=== PATIENT | female | born 1950 | race Caucasian/White ===

== ENCOUNTER 2018-08-12 06:20 | Day surgery (SDC) | payer MEDICARE, BC, SELFPAY ==
--- NOTE | 2018-08-12 06:28 | W.PM.HP.N ---
Assessment and Plan (1) Unintentional weight loss: Current visit: Yes Status: Acute Isaura has lost about 25 lb and has to set an alarm to remind her to eat. (2) Nausea alone: Current visit: Yes Status: Acute Mostly in am P\\ EGD under sedation Risks, benefits and complications have been reviewed. Complications include but are not limited to bleeding, pain, perforation, sore throat, aspiration, and adverse reaction to the medications. Questions were entertained and answered to their satisfaction and they wished to proceed. No guarantees were given or implied. (3) Anorexia: Current visit: Yes Status: Acute (4) Constipation: Current visit: Yes Status: Acute Has to take metamucil and sometimes senna. (5) Family history of colon cancer in father: Current visit: Yes Status: Acute Plan\\ Colonoscopy under sedation Risks, benefits and complications have been reviewed. Complications include but are not limited to bleeding, pain, perforation, missed small lesion/polyp, sore throat, aspiration and adverse reaction to the medications. Questions were entertained and answered to their satisfaction and they wished to proceed. No guarantees were given or implied. History of Present Illness Chief Complaint: weight loss, constipation and nausea Narrative: Isaura was seen in the office on 06/10/18 for complaints of worsening constipation, anorexia with weight loss and intermittent nausea. CT scan was done which showed some possible thickening of the stomach wall. She has not had any melena or hematochezia. She does have a family history of Colon Cancer in her father. There have been no new complaints since I saw her last. Review of Systems Constitutional Reports anorexia Cardiovascular Reports system reviewed and no additional complaints, except as docu Respiratory Reports system reviewed and no additional complaints, except as docu Gastrointestinal Reports as per HPI Genitourinary Reports system reviewed and no additional complaints, except as docu PFSH Family History Father Personal history of malignant neoplasm Medical History Adenocarcinoma of lung Depression Hx of stroke without residual deficits Hypertension Social History Smoking/Tobacco Use Status: Former Tobacco Use Surgical History Appendectomy section Colonoscopy - IV Sedation (09/19/16) EXCISION OF GANGLION CYST (09/13/15) Excision of left distal clavicle (10/17/16) Fracture, Closed Treatment (~2004) Reduction mammoplasty (~1989) Meds Home Medications Medication Instructions Recorded Confirmed Type meclizine 25 mg PO QID PRN #75 tab-cap 11/24/15 08/07/18 History magnesium oxide 1,000 mg PO DAILY 08/14/16 08/07/18 History riboflavin (vitamin B2) [Vitamin 200 mg PO BID 08/14/16 08/07/18 History B-2] albuterol sulfate 2.5 mg INHALATION QID PRN #100 dose 10/11/16 08/07/18 History albuterol sulfate [ProAir HFA] 1 - 2 puff INHALATION Q4H PRN #3 07/22/17 08/07/18 History inhaler cholecalciferol (vitamin D3) 2,000 unit PO DAILY 01/23/18 08/07/18 History clonazepam [Klonopin] 0.5 mg PO QID PRN #180 tab-cap MDD 03/31/18 08/07/18 History 4 vitamin B complex [B 1 ea PO DAILY 03/31/18 08/07/18 History Complex-Vitamin B12] valacyclovir [Valtrex] 500 mg PO BID PRN #14 tab-cap 04/28/18 08/07/18 History tramadol 50 mg PO BID PRN #90 tab-cap 05/19/18 08/07/18 History ascorbic acid (vitamin C) [Vitamin 500 mg PO DAILY tab.chew NS 06/10/18 08/07/18 History C] calcium carbonate [Tums] 200 mg PO PRN PRN tab.chew NS 06/10/18 08/07/18 History Allergies Allergy/AdvReac Type Severity Reaction Status Date / Time gabapentin AdvReac Intermediate Made me Unverified 08/07/18 12:30 crazy Exam Const General: comfortable and no acute distress Resp Effort & Inspection: normal respiratory effort Auscultation: clear to auscultation bilaterally Cardio Rate: regular rate Rhythm: regular rhythm Heart Sounds: no gallops, no murmurs and no rubs GI Inspection: normal to inspection Palpation: soft and nontender Auscultation: normal bowel sounds
[2018-08-12 06:34] VITALS: BP 117/64; PULSE 73; RESP 18; TEMP 35.8; O2SAT 97
--- NOTE | 2018-08-12 06:40 | HPE_ITS ---
Assessment and Plan (1) Unintentional weight loss: Current visit: Yes Status: Acute Isaura has lost about 25 lb and has to set an alarm to remind her to eat. (2) Nausea alone: Current visit: Yes Status: Acute Mostly in am P\\ EGD under sedation Risks, benefits and complications have been reviewed. Complications include but are not limited to bleeding, pain, perforation, sore throat, aspiration, and adverse reaction to the medications. Questions were entertained and answered to their satisfaction and they wished to proceed. No guarantees were given or implied. (3) Anorexia: Current visit: Yes Status: Acute (4) Constipation: Current visit: Yes Status: Acute Has to take metamucil and sometimes senna. (5) Family history of colon cancer in father: Current visit: Yes Status: Acute Plan\\ Colonoscopy under sedation Risks, benefits and complications have been reviewed. Complications include but are not limited to bleeding, pain, perforation, missed small lesion/ polyp, sore throat, aspiration and adverse reaction to the medications. Questions were entertained and answered to their satisfaction and they wished to proceed. No guarantees were given or implied. History of Present Illness Chief Complaint: weight loss, constipation and nausea Narrative: Isaura was seen in the office on 06/10/18 for complaints of worsening constipation, anorexia with weight loss and intermittent nausea. CT scan was done which showed some possible thickening of the stomach wall. She has not had any melena or hematochezia. She does have a family history of Colon Cancer in her father. There have been no new complaints since I saw her last. Review of Systems Constitutional Reports anorexia Cardiovascular Reports system reviewed and no additional complaints, except as docu Respiratory Reports system reviewed and no additional complaints, except as docu Gastrointestinal Reports as per HPI Genitourinary Reports system reviewed and no additional complaints, except as docu PFSH Family History Father Personal history of malignant neoplasm Medical History Adenocarcinoma of lung Depression Hx of stroke without residual deficits Hypertension Social History Smoking/Tobacco Use Status: Former Tobacco Use Surgical History Appendectomy section Colonoscopy - IV Sedation (09/19/16) EXCISION OF GANGLION CYST (09/13/15) Excision of left distal clavicle (10/17/16) Fracture, Closed Treatment (~2004) Reduction mammoplasty (~1989) Meds Home Medications Medication Instructions Recorded Confirmed Type meclizine 25 mg PO QID PRN #75 tab-cap 11/24/15 08/07/18 History magnesium oxide 1,000 mg PO DAILY 08/14/16 08/07/18 History riboflavin (vitamin B2) [Vitamin 200 mg PO BID 08/14/16 08/07/18 History B-2] albuterol sulfate 2.5 mg INHALATION QID PRN #100 dose 10/11/16 08/07/18 History albuterol sulfate [ProAir HFA] 1 - 2 puff INHALATION Q4H PRN #3 07/22/17 History inhaler cholecalciferol (vitamin D3) 2,000 unit PO DAILY 01/23/18 08/07/18 History clonazepam [Klonopin] 0.5 mg PO QID PRN #180 tab-cap MDD 03/31/18 08/07/18 History 4 vitamin B complex [B 1 ea PO DAILY 03/31/18 08/07/18 History Complex-Vitamin B12] valacyclovir [Valtrex] 500 mg PO BID PRN #14 tab-cap 04/28/18 08/07/18 History tramadol 50 mg PO BID PRN #90 tab-cap 05/19/18 08/07/18 History ascorbic acid (vitamin C) [Vitamin 500 mg PO DAILY tab.chew NS 06/10/18 History C] calcium carbonate [Tums] 200 mg PO PRN PRN tab.chew NS 06/10/18 08/07/18 History Allergies Allergy/AdvReac Type Severity Reaction Status Date / Time gabapentin AdvReac Intermediate Made me Unverified 08/07/18 12:30 crazy Exam Const General: comfortable and no acute distress Resp Effort & Inspection: normal respiratory effort Auscultation: clear to auscultation bilaterally Cardio Rate: regular rate Rhythm: regular rhythm Heart Sounds: no gallops, no murmurs and no rubs GI Inspection: normal to inspection Palpation: soft and nontender Auscultation: normal bowel sounds
--- NOTE | 2018-08-12 06:52 | W.COLOREPORT ---
Date of service: 08/12/18 Colonoscopy Report Date of procedure: 08/12/18 Pre-op diagnosis general: Anorexia, constipation, nausea Procedure: 1. Colonoscopy 2. EGD Surgeon: Vanessa Ye Anesthesia proc note operative: MAC (Jagdish Collado CRNA) Estimated blood loss (mL): 5 Pathology: other (1. Duodenal bx, Gastric bx, GE junction bx, esophageal bx, transverse polyps x 5, rectal polyps x5) Complications: None Disposition: same day Indications: Mrs. Arellano is a pleasant 68 year old who was seen in the office for new onset constipation, nausea and anorexia. Risks, benefits and complications have been reviewed and she wished to proceed. No guarantees were given or implied. Prep: Miralax/Dulcolax Procedure Start Time: 07:34 Procedure End Time: 08:12 Retraction Time: 17 minutes Findings: 1. 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 Gastritis 3. Esophagitis ? candidiasis 4. Transverse colon polyps x 5 5. Rectal polyps x 5 Procedure Description: After informed consent was obtained the patient was taken to the procedure room and placed in a supine position. Monitors were applied and a time out was done. The patients name, date of , procedure, allergies to medications and metal in their body was reviewed. A bite block was placed and the patient was then sedated. Once sedated and comfortable the Gastroscope was introduced and advanced through the oropharynx into the esophagus. The proximal esophagus was normal. The mid and distal esophagus revealed inflammation. At the GE junction there was erosive esophagitis. The scope was advanced into the stomach and through the pylorus into the duodenum. In the second portion of the duodenum there was a small mass, most likely a polyp. It was biopsied. The scope was the retracted back into the stomach and biopsies of the antrum were done to rule out H. Pylori infection. There was moderate inflammation noted. The scope was retroflexed. No hiatal hernia was identified. The scope was straightened and retracted into the esophagus. Biopsies of the GE junction were done as well as the esophagus. The scope was then removed and the patients bed was turned around and she was placed in a left decubitous position. A rectal exam was done. External exam was normal. Internal exam revealed a normal sphincter tone and no palpable masses. The scope was then introduced and retroflexed. No internal hemorrhoids were identified. The scope was straightened and then advanced to the cecum without difficulty. The TI and appendiceal orifice were identified. The prep was adequate. The scope was then slowly retracted over 17 minutes back into the rectum. 5 polyps were removed in the transverse colon and 5 in the rectum. The scope was removed and the patient was woken up and taken back to Same day surgery in stable condition. The patient tolerated the procedure well and there were no immediate complications. Follow up: The patient should follow up in 2-3 weeks for her results.
[2018-08-12] MEDS: Lactated Ringers 1,000 ML 80 ML IV (06:57)
--- NOTE | 2018-08-12 07:05 | PDOC.DSDIS_ITS ---
Discharge Plan Disposition Patient Disposition: HOME Condition: Good Discharge Details Reason For Visit: ABNORMAL CT / CONSTIPATION Attending Provider: Vanessa Ye Primary Care Provider: Aurelia Bobby Home Meds and New Rx's Prescriptions: New omeprazole 40 mg capsule,delayed release(DR/EC) 40 mg PO BID Qty: 60 RF: 0 No Action meclizine 25 MG tablet,chewable 25 mg PO QID PRNQty: 75 RF: 1 riboflavin (vitamin B2) [Vitamin B-2] 100 MG tablet 200 mg PO BID RF: 0 magnesium oxide 500 MG capsule 1,000 mg PO DAILY RF: 0 albuterol sulfate 2.5 MG/3 ML solution for nebulization 2.5 mg Inhalation QID PRNQty: 100 RF: 12 albuterol sulfate [ProAir HFA] 8.5 GM HFA aerosol inhaler 1 - 2 puff Inhalation Q4H PRN Qty: 3 RF: 12 hydroxyzine HCl 10 MG tablet 10 mg PO Q4H PRN Qty: 90 RF: 0 cholecalciferol (vitamin D3) 2,000 UNIT tablet 2,000 unit PO DAILY RF: 0 vitamin B complex [B Complex-Vitamin B12] 1 EACH tablet 1 ea PO DAILY RF: 0 clonazepam [Klonopin] 0.5 MG tablet 0.5 mg PO QID MDD 4 PRNQty: 180 RF: 3 valacyclovir [Valtrex] 500 MG tablet 500 mg PO BID PRNQty: 14 RF: 11 levothyroxine 50 MCG tablet 50 mcg PO DAILY Qty: 90 RF: 11 topiramate 100 MG tablet 0.5 tab PO BID Qty: 180 RF: 4 tramadol 50 MG tablet 50 mg PO BID PRNQty: 90 RF: 0 calcium carbonate [Tums] 200 MG tablet,chewable 200 mg PO PRN PRNRF: 0 ascorbic acid (vitamin C) [[place] C] 500 MG tablet,chewable 500 mg PO DAILY RF: 0 sertraline 50 MG tablet 50 mg PO DAILY Qty: 90 RF: 11 dextroamphetamine-amphetamine [Adderall] 10 MG tablet 10 mg PO BID Qty: 60 RF: 0 Discharge Instructions Instructions: Colonoscopy (DC), Upper Endoscopy (DC), Diet for Stomach Ulcers and Gastritis (GEN), Esophagitis (DC), Gastritis (DC), Colorectal Polyps (DC) Additional Instructions: Findings: Severe gastritis and esophagitis 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 Because there will be medication in your system for the next 24 hours, you may feel a little sleepy. Your coordination will be affected. Therefore: a. Do not drive or operate dangerous equipment for 24 hours. b. Do not drink alcohol beverages for 24 hours (not even beer). c. Plan to go home and rest for the day. 2. Generally there are no restrictions on your activity after a day or so has gone by, but you may feel a bit fatigued for a few days. 3 After you arrive home you may have a light meal and return to a normal diet as you can tolerate it without feeling sick to your stomach. 4. After surgery, you may feel pain or discomfort. This should be only transient , but if it persists please contact your doctor. 5. If there are any questions regarding the findings of your procedure, please feel free to contact your doctor. 6. If you are unable to contact your doctor with a problem, contact the hospital at [phone]. 7. Continue all your regular medications unless directed otherwise. I understand the above instructions and have no questions. Signature of Patient or Responsible Adult Escort Date/Time Name of Responsible Adult Escort Signature of Nurse Date/Time Stand Alone Forms: Colonoscopy Post Instructions, DSU Post EGD Instructions, Kanwal Nguyen (DSU) Activity:: Activity as Tolerated Diet:: low acid Discharge Orders Discharge Orders: Discharge Order (Routine); Ordered 08/12/18 Ordered By: Vanessa Ye DS: Diagnosis Discharge Diagnosis (1) Unintentional weight loss: Status: Acute (2) Nausea alone: Status: Acute (3) Anorexia: Status: Acute (4) Constipation: Status: Acute (5) Family history of colon cancer in father: Status: Acute
--- NOTE | 2018-08-12 07:35 | STOM_PTH ---
PATIENT: Isaura Arellano LOC: [facility] U#:[id number] AGE/SX: 68/F ROOM: RE08/12/[address]: Vanessa Ye MD : 1950 BED: DIS: 08/12/2018 SPEC #: [id number] RECD: 08/12/18 12:07 STATUS: [facility] #: [id number] ELZA: 08/12/18 07:[address]: Vanessa Ye DEPT: Surgical Specimen RECD BY: Haydee Viramontes ENTERED: 08/12/18 12:17 SP TYPE: STOMACH OTHR DR: Aurelia Bobby MD, DC Tissues: 1 - BIOPSY BOWEL 2 - STOMACH BIOPSY 3 - ESOPHAGUS BIOPSY 4 - ESOPHAGUS BIOPSY 5 - BIOPSY BOWEL 6 - BIOPSY BOWEL Procedures: GROSS AND MICRO LEVEL 4 Comments: [id number]
[2018-08-12 08:40] VITALS: BP 142/84; PULSE 63; RESP 16; O2SAT 98
== END 2018-08-12 09:30 | disposition home or self-care (01) ==
PROVIDERS: PCP Family Medicine; Visit Provider Surgery
PROC: (CPT 43239; principal; 2018-08-12 07:30)
DX: R63.0 Anorexia (principal); R11.0 Nausea; K59.00 Constipation, unspecified; K63.5 Polyp of colon; K62.1 Rectal polyp; K31.89 Other diseases of stomach and duodenum; K21.0 Gastro-esophageal reflux disease with esophagitis; K29.70 Gastritis, unspecified, without bleeding
CPT/HCPCS: 43239; 45380; 88305; NC; J2250; J3010

== ENCOUNTER → 2018-08-12 07:30 | Outpatient (BNVA) | payer MEDICARE, BC, SELFPAY | PROVIDERS: PCP Family Medicine; Visit Provider Surgery | DX: R69 Illness, unspecified (principal) ==

== ENCOUNTER → 2018-08-18 08:26 | Outpatient (BNVA) | payer MEDICARE, BC, SELFPAY | PROVIDERS: Visit Provider Nurse Practitioner Adult Health | DX: G43.009 Migraine without aura, not intractable, without status migrainosus (principal) | CPT/HCPCS: 99213 ==

== ENCOUNTER → 2018-09-02 09:25 | Outpatient (BNVA) | payer MEDICARE, BC, SELFPAY | PROVIDERS: PCP Family Medicine; Referring Provider Family Medicine; Visit Provider Surgery | DX: Z48.815 Encounter for surgical aftercare following surgery on the digestive system (principal); K29.70 Gastritis, unspecified, without bleeding; K21.0 Gastro-esophageal reflux disease with esophagitis | CPT/HCPCS: 99212 ==

== ENCOUNTER 2018-10-31 01:39 | Outpatient (CLI) | payer MEDICARE, BC, SELFPAY ==
[2018-10-31] MEDS: Gadoterate meglumine 20 ML VIAL 12 ML IVP (10:25)
--- NOTE | 2018-10-31 10:55 | DI.MRI_ITS ---
SYMPTOM/DIAGNOSIS: IMBALANCE, PULSATILE TINNITUS, R26.89, H83.49, VERTIGO, HEADACHES BRAIN/IAC MRI: Pre and post contrast MRI was performed according to protocol. Comparison is made with 01/20/16. The ventricles and sulci are consistent with the patient's age. There areas of T 2 hyperintensity in the white matter on the FLAIR and T 2 weighted images most suggestive of small vessel ischemic disease. The diffusion weighted images show no evidence of an acute infarct. No intracranial hemorrhage is seen. The ventricles are intact. The basilar cisterns are patent. No masses are seen in the region of the internal auditory canals or the cerebellar pontine angles. A normal flow void is present in the [place]. Following contrast administration, no abnormal enhancement is seen. Specifically, no enhancing masses are seen in the region of the IAC's or CPA's. There is mild mucosal thickening in the visualized paranasal sinuses. No fluid levels are seen. The mastoid air cells are well pneumatized. IMPRESSION: 1. No evidence of an intracranial mass or enhancing lesion in the brain, IAC's or CP angles. 2. Age appropriate cerebral atrophy and small vessel ischemic disease. 3. No enhancing mass to suggest intracranial metastases.
== END 2018-10-31 01:59 ==
PROVIDERS: PCP Family Medicine; Visit Provider Otolaryngology
DX: R26.89 Other abnormalities of gait and mobility (principal); H93.19 Tinnitus, unspecified ear; R51 Headache; R42 Dizziness and giddiness; Z13.89 Encounter for screening for other disorder
CPT/HCPCS: 36415; 70553; 82565

== ENCOUNTER 2018-11-17 14:00 | Outpatient (CLI) | payer MEDICARE, BC, SELFPAY ==
--- NOTE | 2018-11-17 11:20 | DI.RAD_ITS ---
SYMPTOMS/DIAGNOSIS: RIGHT HIP PAIN, M25.551, NO KNOWN INJURY, DECREASED RANGE OF MOTION RIGHT HIP AND PELVIS: Three views were obtained. There is mild to moderate narrowing of the cartilaginous joint space of the hip. Mild hypertrophic spurring of the acetabulum and to a lesser degree the femoral head is noted, as well as spurring of the greater trochanter of the femur. No additional bony abnormality seen. CONCLUSION: Moderate DJD, right hip.
== END 2018-11-17 14:20 ==
PROVIDERS: PCP Family Medicine; Visit Provider Family Medicine
DX: M25.551 Pain in right hip (principal); M16.11 Unilateral primary osteoarthritis, right hip; M25.651 Stiffness of right hip, not elsewhere classified
CPT/HCPCS: 73502

== ENCOUNTER 2019-04-17 10:37 | Outpatient (CLI) | payer MEDICARE, BC, SELFPAY ==
[2019-04-17 11:57] LABS: TSH (W/Ref FT4) 1.21 uIU/mL (0.358-3.74)
== END 2019-04-17 10:57 ==
PROVIDERS: PCP Family Medicine; Visit Provider Family Medicine
DX: E03.9 Hypothyroidism, unspecified (principal)
CPT/HCPCS: 36415; 84443

== ENCOUNTER → 2019-05-06 07:51 | Outpatient (BNVA) | payer MEDICARE, BC, SELFPAY | PROVIDERS: PCP Family Medicine; Referring Provider Family Medicine; Visit Provider Student in an Organized Health Care Education/Training Program | DX: M16.11 Unilateral primary osteoarthritis, right hip (principal); G56.01 Carpal tunnel syndrome, right upper limb; I10 Essential (primary) hypertension | CPT/HCPCS: 99204; 99214 ==

== ENCOUNTER 2019-05-19 12:57 | Day surgery (SDC) | payer MEDICARE, BC, SELFPAY ==
--- NOTE | 2019-05-15 13:23 | NUR.NOTE ---
05/15/19 1320 - After finishing PPOV, spoke with RUMA Thomas in regards to pt report of allergy to propofol. Pt reports severe behavorial changes after having propofol, she continues to state it's severe enough I would forgo surgery to not have it.Nursing Note:
[2019-05-19 13:30] VITALS: BP 119/85; PULSE 65; RESP 16; TEMP 36.9; O2SAT 98
--- NOTE | 2019-05-19 13:41 | W.PM.DSUDISC ---
Documented by User: Giselle Suarez 05/19/19 13:48 Discharge Plan Disposition Patient Disposition: HOME Condition: Good Discharge Details Reason For Visit: right carpal tunnel syndrome Attending Provider: Shmuel Cid Primary Care Provider: Aurelia Bobby Home Meds and New Rx's Prescriptions: New hydrocodone-acetaminophen 5-325 mg tablet 1 tab PO Q6H PRN (Reason: severe pain) Qty: 4 RF: 0 acetaminophen 500 mg tablet 500 mg PO Q8H PRN (Reason: pain) Qty: 60 RF: 0 ibuprofen 600 mg tablet 600 mg PO TID PRN (Reason: pain) Qty: 60 RF: 0 Continued cyanocobalamin (vitamin B-12) [Vitamin B-12] 500 mcg tablet 500 mcg PO DAILY RF: 0 albuterol sulfate [ProAir HFA] 90 mcg/actuation HFA aerosol inhaler 1 - 2 puff Inhalation Q4H PRN Qty: 3 RF: 4 hydroxyzine HCl 25 mg tablet 25 mg PO QHS PRN (Reason: itching) Qty: 270 RF: 3 levothyroxine 50 mcg tablet 50 mcg PO DAILY Qty: 90 RF: 11 valacyclovir 500 mg tablet 500 mg PO BID PRN (Reason: herpes) Qty: 42 RF: 11 lisdexamfetamine 60 mg capsule 60 mg PO QAM MDD 1 Qty: 90 RF: 0 tramadol 50 mg tablet 50 mg PO QHS PRN (Reason: pain) Qty: 90 RF: 0 riboflavin (vitamin B2) [Vitamin B-2] 100 MG tablet 200 mg PO BID RF: 0 magnesium oxide 500 MG capsule 1,000 mg PO DAILY RF: 0 albuterol sulfate 2.5 MG/3 ML solution for nebulization 2.5 mg Inhalation QID PRNQty: 100 RF: 12 cholecalciferol (vitamin D3) 2,000 UNIT tablet 2,000 unit PO DAILY RF: 0 vitamin B complex [B Complex-Vitamin B12] 1 EACH tablet 1 ea PO DAILY RF: 0 ascorbic acid (vitamin C) [[place] C] 500 MG tablet,chewable 500 mg PO DAILY RF: 0 lamotrigine 100 mg tablet 200 mg PO DAILY Qty: 180 RF: 4 clonazepam 1 mg tablet 1 mg PO QHS PRN (Reason: insomnia) Qty: 90 RF: 3 clonazepam 0.5 mg tablet 0.5 mg PO .COMPLEX MDD 3 PRN (Reason: anxiety) Qty: 180 RF: 2 Discharge Instructions Stand Alone Forms: Jose Roberto Soria Tunnel Release Referrals: Shmuel Cid MD [ [facility] STAFF PHYSICIAN] - Activity:: Activity as Tolerated Remove Dressings/Wound Care:: 48 hours Shower/Bathe:: 48 hours Diet:: As Tolerated Discharge Orders Discharge Orders: Discharge Order (Routine); Ordered 05/19/19 Ordered By: Giselle Suarez DS: Diagnosis Discharge Diagnosis (1) Right carpal tunnel syndrome: Status: Chronic Documented by User: Shmuel Cid MD 05/19/19 14:45 Discharge Plan Disposition Patient Disposition: HOME Condition: Good Discharge Details Reason For Visit: right carpal tunnel syndrome Attending Provider: Shmuel Cid Primary Care Provider: Aurelia Bobby Home Meds and New Rx's Prescriptions: New hydrocodone-acetaminophen 5-325 mg tablet 1 tab PO Q6H PRN (Reason: severe pain) Qty: 4 RF: 0 acetaminophen 500 mg tablet 500 mg PO Q8H PRN (Reason: pain) Qty: 60 RF: 0 ibuprofen 600 mg tablet 600 mg PO TID PRN (Reason: pain) Qty: 60 RF: 0 Continued cyanocobalamin (vitamin B-12) [Vitamin B-12] 500 mcg tablet 500 mcg PO DAILY RF: 0 albuterol sulfate [ProAir HFA] 90 mcg/actuation HFA aerosol inhaler 1 - 2 puff Inhalation Q4H PRN Qty: 3 RF: 4 hydroxyzine HCl 25 mg tablet 25 mg PO QHS PRN (Reason: itching) Qty: 270 RF: 3 levothyroxine 50 mcg tablet 50 mcg PO DAILY Qty: 90 RF: 11 valacyclovir 500 mg tablet 500 mg PO BID PRN (Reason: herpes) Qty: 42 RF: 11 lisdexamfetamine 60 mg capsule 60 mg PO QAM MDD 1 Qty: 90 RF: 0 tramadol 50 mg tablet 50 mg PO QHS PRN (Reason: pain) Qty: 90 RF: 0 riboflavin (vitamin B2) [Vitamin B-2] 100 MG tablet 200 mg PO BID RF: 0 magnesium oxide 500 MG capsule 1,000 mg PO DAILY RF: 0 albuterol sulfate 2.5 MG/3 ML solution for nebulization 2.5 mg Inhalation QID PRNQty: 100 RF: 12 cholecalciferol (vitamin D3) 2,000 UNIT tablet 2,000 unit PO DAILY RF: 0 vitamin B complex [B Complex-Vitamin B12] 1 EACH tablet 1 ea PO DAILY RF: 0 ascorbic acid (vitamin C) [[place] C] 500 MG tablet,chewable 500 mg PO DAILY RF: 0 lamotrigine 100 mg tablet 200 mg PO DAILY Qty: 180 RF: 4 clonazepam 1 mg tablet 1 mg PO QHS PRN (Reason: insomnia) Qty: 90 RF: 3 clonazepam 0.5 mg tablet 0.5 mg PO .COMPLEX MDD 3 PRN (Reason: anxiety) Qty: 180 RF: 2 Discharge Instructions Stand Alone Forms: Jose Roberto Soria Tunnel Release Referrals: Shmuel Cid MD [ [facility] STAFF PHYSICIAN] - Activity:: Activity as Tolerated Remove Dressings/Wound Care:: 48 hours Shower/Bathe:: 48 hours Diet:: As Tolerated Discharge Orders Discharge Orders: Discharge Order (Routine); Ordered 05/19/19 Ordered By: Giselle Suarez
[2019-05-19] MEDS: Lactated Ringers 1,000 ML 80 ML IV (13:50)
--- NOTE | 2019-05-19 14:12 | DI.RAD_ITS ---
SYMPTOMS/DIAGNOSIS: PAINFUL RIGHT HIP RIGHT HIP IN THE OR: Fluoroscopy Time: 9.1 sec Fluoroscopy was provided for Dr. Cid for guidance with performing a right hip injection. A single hard copy image shows a needle projecting over the lateral aspect of the femoral head and injection of contrast into the joint space. Please see procedure note for details.
[2019-05-19] MEDS: ceFAZolin 1 GM/50 ML BAG IVPB (14:46)
[2019-05-19] MEDS: Bupivacaine 0.5% Pres-Free 30 ML VIAL (14:56)
[2019-05-19] MEDS: methylPREDNISolone ACETATE 80 MG/ML VIAL (14:57)
[2019-05-19] MEDS: Lidocaine 1% Multi-Dose 50 ML VIAL (15:08)
[2019-05-19] MEDS: Sodium Bicarbonate 50 MEQ/50 ML VIAL (15:08)
[2019-05-19 15:47] VITALS: BP 134/77; PULSE 54; RESP 16; TEMP 36.3; O2SAT 98
--- NOTE | 2019-05-19 18:23 | ROE_ITS ---
Date of service: 05/19/19 Time of Service: 14:19 Operative Note DATE OF PROCEDURE: 05/19/19 PRE-OP DIAGNOSIS: Right Carpal Tunnel Syndrome, right hip arthritis POST-OP DIAGNOSIS: same PROCEDURE: Right Endoscopic Carpal Tunnel Release and fluoroscopically guided right intra-articular hip injection SURGEON: Shmuel Cid ANESTHESIA: JEN ESTIMATED BLOOD LOSS: 0 PATHOLOGY: none sent TOURNIQUET TIME: 5 COMPLICATIONS: None Patient was transported to: same day Patient's condition: stable Indications: I have seen Isaura in clinic for symptoms of carpal tunnel syndrome. The numbness, tingling, and pain limited function. Clinical exam findings confirmed the diagnosis of carpal tunnel syndrome. Nonoperative measures such as bracing, time, activity modifications had been tried but disability and pain persisted. I discussed carpal tunnel release with the patient. I reviewed the risks of the procedure to include, but not limited to, bleeding, infection, pain, stiffness, incomplete release, damage to nerves or vessels, persistent numbness, recurrence. Despite these risks, the patient elected to proceed. She also has been having increasing right hip pain. She has tried some basic conservative options. As a way to both diagnose and treat, offered an intra-articular hip injection. I reviewed the risk of this procedure but she elected to proceed. Findings: There was tightened carpal tunnel. This was dilated and released successfully with the endoscopic with increased space within the tunnel. The antebrachial fascia was released proximally freeing the median nerve at the wrist. Procedure Description: Isaura was greeted in the preoperative holding area where the correct side was identified and marked. The consent was reviewed with the patient and signed. The history and physical was updated. All questions were answered. Isaura was taken back to the operating room. The patient was placed into the supine position on the operating room table with the right arm on an arm board. A nonsterile tourniquet was placed high onto the arm. All bony prominences were well padded. Prophylactic antibiotics in the form of cefazolin were administered. The right arm was then prepped with Chloraprep and draped in a standard fashion with stockinette and extremity drape. A timeout to confirm correct identity, side and site, procedure, allergies, anesthesia, and medical concerns was performed. The surgical site was marked in the volar wrist creases in line with the radial border of the fourth ray. This area was anesthetized with approximately 6cc of 1% Lidocaine. The limb was then exsanguinated with an Esmarch. The skin was incised with a 15 blade, approximately 1cm. The skin only was cut and the deeper tissue was dissected bluntly with a tenotomy scissor, avoiding passing nerve and venous structures. The fascia was penetrated and opened bluntly. A two-prong skin hook was placed under this proximal fascial edge. A series of hamate finders were used to identify and dilate the carpal tunnel. Synovial elevator was used to free synovial attachments to the underside of the transverse carpal ligament. My thumb was kept in the palm to yumiko the distal extent of the carpal tunnel and correctly position the hand. The Microaire endoscope was inserted without difficulty and without resistance. Excellent visualization showed horizontally running fibers of the transverse carpal ligament (TCL). The distal extent of the TCL was visualized and the end of the scope palpated with the thumb. The blade was elevated and withdrawn from distal to proximal. The TCL was split into two flaps. The endoscope was reinserted to confirm complete release and any remnant ligament was incised. The scope was withdrawn and the proximal aspect of the carpal tunnel was grossly inspected and appeared release with the median nerve visible. The antebrachial fascia at the level of the wrist was then freed from the overlying skin and then the underlying median nerve with blunt dissection. This was transected longitudinally for about 3cm proximal to the wrist incision. The wound was then irrigated with easy flow of irrigant distally and proximally. The incision was closed with a single 4-0 Nylon suture. The wound was dressed with Xeroform, Gauze, Kerlix and Ger. The tourniquet was deflated with the initial dressing and held with some pressure. Blood flow returned easily to all digits with capillary refill less than 2 seconds. The drapes were then taken down and we proceeded with the right hip injection. The right hip was prepped with ChloraPrep. The fluoroscopy unit was utilized to target our entry location over the anterior lateral right hip. Once this was selected the superficial tissues in the tract of the planned injection was anesthetized with buffered 1% lidocaine. A 22-gauge spinal needle was then in serted through the soft tissues onto the anterior femoral head neck junction. The bone was palpated with the needle tip. A small amount of Omnipaque solution was injected into the hip which showed intra-articular placement. I then injected 6 cc of 0.5 bupivacaine and 80 mg of Depo-Medrol. She tolerated the procedure well. A Band-Aid was applied. The patient tolerated all surgical aspects well and was returned to the Same Day Surgery area in a stable condition suffering no known complication.
== END 2019-05-19 16:08 | disposition home or self-care (01) ==
PROVIDERS: PCP Family Medicine; Visit Provider Student in an Organized Health Care Education/Training Program
PROC: 01N54ZZ Release Median Nerve, Percutaneous Endoscopic Approach (ICD-10-PCS; CPT 29848; principal; 2019-05-19 15:30)
PROC: (CPT 29848; 2019-05-19 15:30)
DX: G56.01 Carpal tunnel syndrome, right upper limb (principal); M25.551 Pain in right hip; M16.11 Unilateral primary osteoarthritis, right hip
CPT/HCPCS: 29848; 20610; 77002; 73501; J0690; J1040; J2250; L3650

== ENCOUNTER → 2019-05-27 14:33 | Outpatient (BNVA) | payer MEDICARE, BC, SELFPAY | PROVIDERS: PCP Family Medicine; Referring Provider Family Medicine; Visit Provider Student in an Organized Health Care Education/Training Program | DX: G56.01 Carpal tunnel syndrome, right upper limb (principal); Z47.89 Encounter for other orthopedic aftercare; Z98.890 Other specified postprocedural states; M16.11 Unilateral primary osteoarthritis, right hip ==

== ENCOUNTER 2019-07-06 10:01 | Outpatient (CLI) | payer MEDICARE, BC, SELFPAY ==
--- NOTE | 2019-07-06 09:13 | DI.RAD_ITS ---
SYMPTOM/DIAGNOSIS; INJURY LITTLE FINGER RIGHT LITTLE FINGER: 07/06 Three views were obtained. There are degenerative changes of the IP joints of the little finger, particularly the DIP joint. Multiple small flecks of calcific or ossific material are seen adjacent to the DIP joint on the volar, dorsal and lateral aspects of the joint. These appear to mostly be chronic but the possibility of a chip or avulsion fracture is not entirely excluded. No other bony abnormality seen.
== END 2019-07-06 10:21 ==
PROVIDERS: PCP Family Medicine; Referring Provider Family Medicine; Visit Provider Student in an Organized Health Care Education/Training Program
DX: S63.636A Sprain of interphalangeal joint of right little finger, initial encounter (principal); W23.0XXA Caught, crushed, jammed, or pinched between moving objects, initial encounter; Z47.89 Encounter for other orthopedic aftercare; I10 Essential (primary) hypertension; M79.89 Other specified soft tissue disorders
CPT/HCPCS: 99214; 73140

== ENCOUNTER → 2019-08-03 08:28 | Outpatient (BNVA) | payer MEDICARE, BC, SELFPAY | PROVIDERS: PCP Family Medicine; Visit Provider Nurse Practitioner Adult Health | DX: F32.9 Major depressive disorder, single episode, unspecified (principal); G43.009 Migraine without aura, not intractable, without status migrainosus; R41.3 Other amnesia | CPT/HCPCS: 99213 ==

== ENCOUNTER 2019-08-10 08:54 | Outpatient (CLI) | payer MEDICARE, BC, SELFPAY | END 2019-08-10 09:14 | PROVIDERS: PCP Family Medicine; Visit Provider Family Medicine | DX: I49.9 Cardiac arrhythmia, unspecified (principal); I49.3 Ventricular premature depolarization | CPT/HCPCS: 93225 ==

== ENCOUNTER → 2019-08-11 10:05 | Outpatient (BNVA) | payer MEDICARE, BC, SELFPAY | PROVIDERS: PCP Family Medicine; Visit Provider Nurse Practitioner Adult Health | DX: R41.3 Other amnesia (principal); I10 Essential (primary) hypertension; F32.9 Major depressive disorder, single episode, unspecified | CPT/HCPCS: 99213 ==

== ENCOUNTER 2019-08-13 09:25 | Outpatient (CLI) | payer MEDICARE, BC, SELFPAY ==
--- NOTE | 2019-08-14 12:58 | HOLTER_ITS ---
DATE OF DICTATION: August 14, 2019 INDICATION: Arrhythmias. 48-HOUR HOLTER MONITOR Baseline sinus rhythm. Average heart rate 92 bpm, minimum heart rate 58 bpm, maximum heart rate 133 bpm. Rare isolated ventricular ectopy. No non-sustained VT. Rare atrial ectopy. No SVT or atrial fibrillation. No significant pauses or bradyarrhythmias. No diary entries.
== END 2019-08-13 09:45 ==
PROVIDERS: PCP Family Medicine; Visit Provider Family Medicine
DX: I49.9 Cardiac arrhythmia, unspecified (principal); I49.3 Ventricular premature depolarization
CPT/HCPCS: 93226

== ENCOUNTER 2019-08-14 10:05 | Outpatient (CLI) | payer MEDICARE, BC, SELFPAY | END 2019-08-14 10:25 | PROVIDERS: PCP Family Medicine; Referring Provider Family Medicine; Visit Provider Internal Medicine Cardiovascular Disease | DX: I49.9 Cardiac arrhythmia, unspecified (principal); I49.3 Ventricular premature depolarization | CPT/HCPCS: 93227 ==

== ENCOUNTER 2019-09-10 10:51 | Outpatient (CLI) | payer MEDICARE, BC, SELFPAY ==
[2019-09-10 12:09] LABS: TSH (W/Ref FT4) 1.65 uIU/mL (0.36-3.74)
== END 2019-09-10 11:11 ==
PROVIDERS: PCP Family Medicine; Visit Provider Family Medicine
DX: I10 Essential (primary) hypertension (principal); R63.4 Abnormal weight loss; R55 Syncope and collapse
CPT/HCPCS: 36415; 80053; 80061; 85027; 82607; 83036; 83735; 84443

== ENCOUNTER 2019-09-22 01:56 | Outpatient (CLI) | payer MEDICARE, BC, SELFPAY ==
--- NOTE | 2019-09-22 14:50 | DI.CT_ITS ---
EXAM: CT CHEST WO CLINICAL HISTORY: NON-SMALL CELL CARCINOMA LT LUNG STAGE 1 C34.92 TECHNIQUE: Noncontrast COMPARISON: CHEST WITH CONTRAST from 06/09/2018 FINDINGS: There is atherosclerosis of the thoracic aorta. The heart size is within normal limits. Coronary ar clementina calcifications are present. No definite mediastinal adenopathy is seen on this noncontrast exam ination. There are findings of prior granulomatous disease with calcified mediastinal lymph nodes, c alcified pulmonary nodules and calcifications in the spleen. No noncalcified pulmonary nodules are p resent. No focal consolidating infiltrates are present in the lungs. The tracheobronchial tree is u nremarkable. There are stable adrenal nodules. Degenerative changes are seen in the spine. There a re old healed left rib fractures. No aggressive osseous lesions are appreciated. IMPRESSION: 1. No evidence of thoracic metastatic disease. 2. Findings of prior granulomatous disease.
== END 2019-09-22 02:16 ==
PROVIDERS: PCP Family Medicine; Visit Provider Internal Medicine Hematology & Oncology
DX: C34.92 Malignant neoplasm of unspecified part of left bronchus or lung (principal); I70.0 Atherosclerosis of aorta; J98.4 Other disorders of lung
CPT/HCPCS: 71250

== ENCOUNTER 2019-10-29 18:42 | Outpatient (REF) | payer MEDICARE, BC, SELFPAY | END 2019-10-29 19:02 | LOC: LBN 18:42 | PROVIDERS: PCP Family Medicine; Visit Provider Family Medicine | DX: R50.9 Fever, unspecified (principal) | CPT/HCPCS: 87449 ==

== ENCOUNTER → 2020-02-01 10:56 | Outpatient (BNVA) | payer MEDICARE, BC, SELFPAY | PROVIDERS: PCP Family Medicine; Referring Provider Family Medicine; Visit Provider Student in an Organized Health Care Education/Training Program | DX: G56.02 Carpal tunnel syndrome, left upper limb (principal); M25.551 Pain in right hip | CPT/HCPCS: 99214 ==

== ENCOUNTER 2020-02-03 03:29 | Outpatient (CLI) | payer MEDICARE, BC, SELFPAY ==
[2020-02-03 11:04] LABS: TSH (W/Ref FT4) 0.59 uIU/mL (0.36-3.74)
== END 2020-02-03 03:49 ==
PROVIDERS: PCP Family Medicine; Visit Provider Family Medicine
DX: E03.9 Hypothyroidism, unspecified (principal); K59.00 Constipation, unspecified
CPT/HCPCS: 36415; 84443

== ENCOUNTER 2020-02-03 11:51 | Day surgery (SDC) | payer MEDICARE, BC, SELFPAY ==
[2020-02-03 11:55] VITALS: BP 134/80; PULSE 62; RESP 22; TEMP 36.4; O2SAT 100
[2020-02-03] MEDS: Lactated Ringers 1,000 ML 80 ML IV ×2 (12:32→14:30)
--- NOTE | 2020-02-03 14:27 | W.PM.DSUDISC ---
Discharge Plan Disposition Patient Disposition: HOME Condition: Good Discharge Details Reason For Visit: (L) CTS,(R) HIP INJ Attending Provider: Shmuel Cid Primary Care Provider: Aurelia Bobby Home Meds and New Rx's Prescriptions: Continued cyanocobalamin (vitamin B-12) [Vitamin B-12] 500 mcg tablet 500 mcg PO DAILY RF: 0 levothyroxine 50 mcg tablet 50 mcg PO DAILY Qty: 90 RF: 11 albuterol sulfate [ProAir HFA] 90 mcg/actuation HFA aerosol inhaler 1 - 2 puff Inhalation Q4H PRN Qty: 3 RF: 4 valacyclovir 500 mg tablet 500 mg PO BID PRN (Reason: herpes) Qty: 42 RF: 11 tramadol 50 mg tablet 50 mg PO QHS PRN (Reason: pain) Qty: 90 RF: 0 clonazepam 0.5 mg tablet 0.5 mg PO .COMPLEX MDD 3 PRN (Reason: anxiety) Qty: 180 RF: 2 estradiol [Yuvafem] 10 mcg tablet 10 mcg VG .3 times weekly Qty: 36 RF: 4 riboflavin (vitamin B2) [Vitamin B-2] 100 MG tablet 200 mg PO BID RF: 0 magnesium oxide 500 MG capsule 1,000 mg PO DAILY RF: 0 cholecalciferol (vitamin D3) 2,000 UNIT tablet 2,000 unit PO DAILY RF: 0 vitamin B complex [B Complex-Vitamin B12] 1 EACH tablet 1 ea PO DAILY RF: 0 ascorbic acid (vitamin C) [[place] C] 500 MG tablet,chewable 500 mg PO DAILY RF: 0 Changed acetaminophen 500 mg tablet 500 mg PO Q6H PRN PRN (Reason: pain) Qty: 60 RF: 0 ibuprofen 600 mg tablet 600 mg PO TID PRN PRNQty: 90 RF: 0 Discharge Instructions Additional Instructions: Use Tylenol and Ibuprofen for baseline pain. You may take an extra dose of Tramadol for any breakthrough pain. Stand Alone Forms: Jose Roberto Soria Tunnel Release Referrals: Shmuel Cid MD [ [facility] STAFF PHYSICIAN] - Activity:: Elevate Remove Dressings/Wound Care:: 48 hours Shower/Bathe:: 48 hours Diet:: As Tolerated Discharge Orders Discharge Orders: Discharge Order (Routine); Ordered 02/03/20 Ordered By: Shmuel Cid DS: Diagnosis Discharge Diagnosis (1) Left carpal tunnel syndrome: Status: Acute (2) Primary osteoarthritis of right hip: Status: Chronic
[2020-02-03] MEDS: ceFAZolin 1,000 MG VIAL 1000 MG (14:35)
[2020-02-03] MEDS: Sodium Bicarbonate 50 MEQ/50 ML VIAL (14:42)
[2020-02-03] MEDS: Omnipaque 300 MG/ML 50 ML BTL (14:50)
[2020-02-03] MEDS: Bupivacaine 0.5% Pres-Free 30 ML VIAL (14:55)
[2020-02-03] MEDS: methylPREDNISolone ACETATE 80 MG/ML VIAL (14:55)
[2020-02-03 14:58] VITALS: BP 132/81; PULSE 102; RESP 26; TEMP 36.7; O2SAT 97
--- NOTE | 2020-02-03 15:00 | DI.RAD_ITS ---
EXAM: RF JOINT INJECTION FLUORO GUID CLINICAL HISTORY: RIGHT HIP PAIN AND ARTHRITIS TECHNIQUE: 2D and realtime digital imaging was performed. CONTRAST MATERIAL: Water soluble contrast was administered. COMPARISON: No exams were available for comparison FINDINGS: Fluoroscopy was provided for Dr. Cid during the performance of a right hip injection. Please r efer to the procedure report for complete details. Fluoro time: 0 seconds IMPRESSION:
[2020-02-03 15:03] VITALS: BP 121/76; PULSE 111; RESP 26; TEMP 36.7; O2SAT 97
[2020-02-03 15:08] VITALS: BP 128/78; PULSE 108; RESP 24; TEMP 36.7; O2SAT 97
[2020-02-03 15:34] VITALS: BP 152/95; PULSE 88; RESP 22; TEMP 36.3; O2SAT 94
--- NOTE | 2020-02-04 07:08 | ROE_ITS ---
Date of service: 02/03/20 Time of Service: 15:08 Operative Note Operative Note DATE OF PROCEDURE: 02/03/20 PRE-OP DIAGNOSIS: Left carpal tunnel syndrome, right hip osteoarthritis POST-OP DIAGNOSIS: same PROCEDURE: Left Endoscopic Carpal Tunnel Release, right fluoroscopically guided intra-articular hip injection SURGEON: Shmuel Cid ANESTHESIA: GETIsmael ESTIMATED BLOOD LOSS: 0 PATHOLOGY: none sent TOURNIQUET TIME: 4 COMPLICATIONS: None Patient was transported to: same day Patient's condition: stable Indications: I have seen Isaura in clinic for symptoms of carpal tunnel syndrome. The numbness, tingling, and pain limited function. Clinical exam findings confirmed the diagnosis of carpal tunnel syndrome. She had previously excellent results on the right side. Nonoperative measures such as bracing, time, activity modifications had been tried but disability and pain persisted. I discussed carpal tunnel release with the patient. I reviewed the risks of the procedure to include, but not limited to, bleeding, infection, pain, stiffness, incomplete release, damage to nerves or vessels, persistent numbness, recurrence. Despite these risks, Isaura elected to proceed. Additionally, Isaura has known arthritis of the right hip. She has had previous injections of the right hip which have provided relief. She desired to have another repeat injection and asked for this to be done at the same time. I reviewed the risk of injection to include continued pain, injection site soreness. Despite these risk, she elects to proceed. Findings: There was tightened carpal tunnel. This was dilated and released successfully with the endoscopic with increased space within the tunnel. The antebrachial fascia was released proximally freeing the median nerve at the wrist. The right hip was injected successfully with a spinal needle, confirmed with Omnipaque. Procedure Description: Isaura was greeted in the preoperative holding area where the correct side was identified and marked. The consent was reviewed with the patient and signed. The history and physical was updated. All questions were answered. Isaura was taken back to the operating room. The patient was placed into the supine position on the operating room table with the left arm on an arm board. A nonsterile tourniquet was placed high onto the arm. All bony prominences were well padded. Prophylactic antibiotics in the form of Cefazolin were administered. The left arm was then prepped with Chloraprep and draped in a standard fashion with stockinette and extremity drape. A timeout to confirm correct identity, side and site, procedure, allergies, anesthesia, and medical concerns was performed. The surgical site was marked in the volar wrist creases in line with the radial border of the fourth ray. This area was anesthetized with approximately 6cc of 1% Lidocaine. The limb was then exsanguinated with an Esmarch. The skin was incised with a 15 blade, approximately 1cm. The skin only was cut and the deeper tissue was dissected bluntly with a tenotomy scissor, avoiding passing nerve and venous structures. The fascia was penetrated and opened bluntly. A two-prong skin hook was placed under this proximal fascial edge. A series of hamate finders were used to identify and dilate the carpal tunnel. Synovial elevator was used to free synovial attachments to the underside of the transverse carpal ligament. My thumb was kept in the palm to yumiko the distal extent of the carpal tunnel and correctly position the hand. The Microaire endoscope was inserted without difficulty and without resistance. Excellent visualization showed horizontally running fibers of the transverse carpal ligament (TCL). The distal extent of the TCL was visualized and the end of the scope palpated with the thumb. The blade was elevated and withdrawn from distal to proximal. The TCL was split into two flaps. The endoscope was reinserted to confirm complete release and any remnant ligament was incised. The scope was withdrawn and the proximal aspect of the carpal tunnel was grossly inspected and appeared release with the median nerve visible. The antebrachial fascia at the level of the wrist was then freed from the overlying skin and then the underlying median nerve with blunt dissection. This was transected longitudinally for about 3cm proximal to the wrist incision. The wound was then irrigated with easy flow of irrigant distally and proximally. The incision was closed with a single 4-0 Nylon suture. The wound was dressed with Xeroform, Gauze, Kerlix and Ger. The tourniquet was deflated with the initial dressing and held with some pressure. Blood flow returned easily to all digits with capillary refill less than 2 seconds. The patient tolerated the procedure well and was returned to the Same Day Surgery area in a stable c ondition suffering no known complication. The RIGHT hip was then prepped with Chloraprep. The anterolateral injection starting point was identiifed by bony landmarks and fluoroscopy. The skin and s oft tissue in the tract of the injection was anesthetized with 1% Lidocaine. A spinal needle was then inserted deep into the hip joint at the level of the lateral femoral neck under fluoroscopic guidance. A small amount of Omnipaque solution was injected to confirm intraarticular placement. Once confirmed, the hip was injected with 6cc of 0.5% Bupivicaine and 80mg of Depo-Medrol. A bandaid was placed on the injection site.
== END 2020-02-03 15:40 | disposition home or self-care (01) ==
PROVIDERS: PCP Family Medicine; Visit Provider Student in an Organized Health Care Education/Training Program
PROC: 01N54ZZ Release Median Nerve, Percutaneous Endoscopic Approach (ICD-10-PCS; CPT 29848; principal; 2020-02-03 14:30)
PROC: (CPT 29848; 2020-02-03 14:30)
DX: G56.02 Carpal tunnel syndrome, left upper limb (principal); M16.11 Unilateral primary osteoarthritis, right hip
CPT/HCPCS: 29848; 20610; 36415; 77002; 84443; J0690; J1040; J1100; J2001; J2250; J2704; J3010; L3650; Q9967

== ENCOUNTER 2020-05-02 13:32 | Outpatient (CLI) | payer MEDICARE, BC, SELFPAY ==
[2020-05-03 11:08] LABS: Lyme Ab w Rflx to Lyme Confirm Negative (Negative)
[2020-05-04 07:20] LABS: COVID-19 RT-PCR Result NEGATIVE (Negative)
[2020-05-04 19:53] LABS: Anaplasma phagocytophilum Negative (Negative); B. miyamotoi PCR Negative (Negative); Babesia divergens/MO-1 Negative (Negative); Babesia duncani Negative (Negative); Babesia microti Negative (Negative); Ehrlichia chaffeensis Negative (Negative); Ehrlichia ewingii/canis Negative (Negative); Ehrlichia muris eauclairensis Negative (Negative)
== END 2020-05-02 13:52 ==
PROVIDERS: PCP Family Medicine; Visit Provider Family Medicine
DX: R50.9 Fever, unspecified (principal); W57.XXXA Bitten or stung by nonvenomous insect and other nonvenomous arthropods, initial encounter; T14.8XXA Other injury of unspecified body region, initial encounter; Z11.59 Encounter for screening for other viral diseases
CPT/HCPCS: 36415; 87798; U0003; 86618

== ENCOUNTER 2020-06-14 12:42 | Outpatient (CLI) | payer MEDICARE, BC, SELFPAY ==
[2020-06-19 11:02] LABS: SARS-CoV-2 RNA Undetected (Undetected); SARS-CoV-2 Specimen Source Nasopharynx
== END 2020-06-14 13:02 ==
PROVIDERS: PCP Family Medicine; Visit Provider Family Medicine
DX: R50.9 Fever, unspecified (principal)
CPT/HCPCS: U0003

== ENCOUNTER 2020-06-21 21:31 | Outpatient (REF) | payer MEDICARE, BC, SELFPAY ==
[2020-06-21 22:07] LABS: TSH (W/Ref FT4) 0.87 uIU/mL (0.36-3.74)
== END 2020-06-21 21:51 ==
LOC: LBN 21:31
PROVIDERS: PCP Family Medicine; Visit Provider Family Medicine
DX: E03.9 Hypothyroidism, unspecified (principal); K59.00 Constipation, unspecified
CPT/HCPCS: 84443

== ENCOUNTER 2020-08-08 01:17 | Outpatient (CLI) | payer MEDICARE, BC, SELFPAY ==
--- NOTE | 2020-08-08 13:00 | DI.CT_ITS ---
EXAM: CT CHEST WO CLINICAL HISTORY: H/O LUNG CA,S/P RESECTION,CHEMO AND RADIATION,? RECURRENCE OR NEW PRIMARY TECHNIQUE: COMPARISON: CT CHEST WITH CONTRAST from 06/09/[address] CHEST WO from 09/22/[address] CHEST WO from 09/22/2019 FINDINGS: CT examination of the chest was performed without contrast administration. Images obtained through t he upper abdomen again show 34 millimeter in diameter left adrenal mass, unchanged from May 2018. Visualized kidneys, liver, and pancreas appear normal. Spleen contains multiple calcified granulomas . Reported prior left upper lobectomy for lung carcinoma. No gross mediastinal or hilar adenopathy. N o pleural effusion or pleural-based mass. No new intrapulmonary mass lesion. Multiple calcified pul monary granulomas noted. Tracheobronchial tree appears intact. Thoracic aorta is of normal diameter . IMPRESSION: No evidence of metastatic disease of the chest, prior left upper lobectomy for lung carcinoma. Stable 34 millimeter left adrenal nodule. No significant interval change in appearance comparison with chest CT of May 2018. RADIATION DOSE DELIVERED: 392.31mGy.cm Total DLP
== END 2020-08-08 01:37 ==
PROVIDERS: PCP Family Medicine; Visit Provider Nurse Practitioner Adult Health
DX: E27.8 Other specified disorders of adrenal gland (principal); Z90.2 Acquired absence of lung [part of]; Z85.118 Personal history of other malignant neoplasm of bronchus and lung
CPT/HCPCS: 71250

== ENCOUNTER 2020-11-16 03:03 | Outpatient (CLI) | payer MEDICARE, BC, SELFPAY ==
[2020-11-17 18:46] LABS: COVID-19 RT-PCR UVMMC Result Negative (Negative)
== END 2020-11-16 03:23 ==
PROVIDERS: PCP Family Medicine; Visit Provider Family Medicine
DX: Z20.828 Contact with and (suspected) exposure to other viral communicable diseases (principal)
CPT/HCPCS: U0003

== ENCOUNTER 2020-11-21 09:08 | Outpatient (CLI) | payer MEDICARE, BC, SELFPAY ==
--- OUTSIDE RECORDS SUMMARY | 2020-11-21 09:15 | XMS_ITS ---
:1950 Author Organization [facility] Address [address] [place] [address] Care Team Providers Name Role Phone Martina Unavailable Unavailable PROBLEMS Type Condition ICD9-CM NPI75-RT Onset Condition SNOMED Cod e Code Code Dates Status Problem Hammer toe of left M20.42 Active 1 [id number] foot Problem Cervical lesion N88.9 Active 1982 52877 Problem Acute right hip M25.551 Active 2 16727 pain Problem Anorexia R63.0 Active 96925719 Problem Hammer toe of M20.41 Active 889288 [id number] right foot Problem Chronic depression F32.9 Active 1 86978966 Problem Abnormal auditory H93.299 Active 60 218718 perception Problem ADD (attention F90.9 Active 34210 001 deficit disorder) Problem Constipation K59.00 Active 3700142 8 Problem Adenocarcinoma C80.1 Active 62592 007 ALLERGIES Substance Reaction Event Type Date Status Propofol Unknown Drug Allergy Sep, Active gabapentin Unknown Non Drug Allergy Sep, Active CeFAZolin Sodium rash Drug Allergy Sep, Active ENCOUNTERS Encounter Location Date Diagnosis [facility], [place] [address] [facility] [address] [facility] [address] Sep, [place] [address] M20.41 [facility] [address] [facility], Sep[place] [address] M20.41 [facility] [address] [place] [address] Aug, [place] [address] [facility] Aug, [place] [address] M20.[address] [place] [address] Aug, [place] [address] [facility] [address] [facility] [address] Jul, [place] [address] M20.41 [facility] [address] [place] [address] Jul, [place] [address] M20.41 [facility] [address] [facility] [address] Jul, [place] [address] M20.41 [facility] [address] [facility] [address] Jun, [place] [address] M20.41 [facility] [address] [facility] [address] Jun, [place] [address] M20.41 [facility] [address] [facility] [place], [place] [address] [facility] [address] [facility] [address] Jun, [place] [address] M20.41 [facility] [address] [facility] [place], [place] [address] [place] [address] [place] [address] [place] [address] Jun, [place] [address] [address] [place] [address] [place] [address] [facility] [address] [facility] [place], [place] [address] [facility] [address] [facility] [address] May, [place] [address] M20.41 [facility] [address] [facility] [place], [place] [address] [facility] [address] [facility] [address] Jan, [place] [address] M20.41 ; Hammonds mmer toe of left foot M20.42 and Bunion of right foot M21.6 11 [facility] [address] [facility] [address] Nov, [place] [address] M20.41 and Hammer toe of left foot M20.42 IMMUNIZATIONS No Known Immunizations SOCIAL HISTORY Qualifiers Date Never Smoker REASON FOR REFERRAL FUNCTIONAL STATUS PLAN OF CARE Activity Details Follow Up January Reason: Future Appointment Provider Name:Yasmin Mack, 2020-12-15 02:00:00 PM, [address] [place], [address] , Future Appointment Provider Name:Yasmin Mack, 2021-02-08 10:30:00 AM, [address] [facility], [place], [place] , [address], Future Test X Foot R 3V 20201215 Future Test X Foot R 3V 20200915 Future Test POD Foot, R 3V (POD4) Future Test X Foot R 3V 20191223 VITAL SIGNS Height 64 in 2020-10-12 Weight 140 lbs 2020-10-12 BMI 24.03 kg/m2 2020-10-12 Temperature 96.7 degrees Fahrenheit 2020-10-12 Heart Rate 84 /min 2020-10-12 Respiratory Rate 16 /min 2020-10-12 Oximetry 97 % 2020-10-12 Blood pressure systolic 158 mm Hg 2020-10-12 Blood pressure diastolic 94 mm Hg 2020-10-12 MEDICATIONS Medication Instructions Dosage Frequency Start End Duration Statu s Date Date TraMADol HCl 50 Orally Once a 1 tablet as 24h Active MG day needed Magnesium Oxide Orally Once a 2 capsules 24h 30 day( s) Active 500 MG day at bedtime as needed Acetaminophen 500 Orally every 6 1 capsule 6h Active MG hrs as needed Vitamin C 500 MG Orally Once a 1 tablet 24h 30 day(s ) Active day Estradiol 10 MCG Vaginal Two 1 tablet 30 day(s) Active times a Week Levothyroxine Orally Once a 1 tablet in 24h 30 day(s ) Active Sodium 50 MCG day the morning on an empty stomach Riboflavin 100 MG Orally Once a 2 tablets 24h Active day Fluticasone-Salme Inhalation 1 puff 12h Act fernando terol 500-50 Twice a day MCG/DOSE ValACYclovir HCl Orally Once a 1 tablet 24h 10 day(s ) Active 500 MG day Ibuprofen 600 MG Orally Three 1 tablet 8h A ctive times a day with food or milk as needed ClonazePAM 0.5 MG Orally as as directed Active needed Albuterol Sulfate Inhalation 1 puff as 4h A ctive HFA 108 (90 Base) every 4 hrs needed MCG/ACT Vitamin D3 50 MCG Orally Once a 1 capsule 24h 30 day (s) Active (1999) day Vitamin B 12 500 Orally Once a 1 tablet 24h 30 day(s ) Active MCG day Sertraline HCl 25 Orally Once a 1 tablet 24h 30 day( s) Active MG day PROCEDURES No Known procedures RESULTS Name Result Date Reference Range X Foot R 3V 2020-09-15 See Below For Report X Foot R 3V 2020-08-02 See Below For Report CR C-ARM MINI 2020-07-07 See Below For Report [id number] 2020-07-04 COVID-19 Not Detected Not Detected X Foot R 3V 2020-07-07 See Below For Report REASON FOR VISIT right fourth toe deformity, 3 month f/u,Rt 4th hammertoe xray prior, rt 4th toe revision, Cancelledsurgery, pre op, referral done, pt states that she is here to discuss the surgery, and that she is thinking maybe she would like to maybe hold off, Need to move surgery date, continued problem after toe surgery, x-ray right foot s/p right hammertoe repair; cast for orthotics referral done, pt states th at she is here for a post op visit , pt states that she went for x-ray before appointment , pt states that her right for is still really bothersome, pt states that no footwear is comfortable to wear after a small amount of time on her feet , pt states that she has seen a PT friend that show her some got massage techniques and strecthes that she has been trying to do daily , pt states that she can't go for more than a mile walk without being really uncomfortable , xrays for 09/15 appt with [facility], Post Op 4 , pt states that she is here for post op 4 , pt states that she is having a lot of pain in the right foot , pt states that there is some sort of bump underneath the 4th toe , Post op 3, pt needs x-ray prior to giovani., S/P Arthrodesis Right Fourth Toe, Proximal Interphalangeal Joint, 07/07/2020, surgeon Yasmin Mack, TYRA, X-rays obtained 08/02/2020, Pt denies pain , Last seen by [facility] 07/27/2020. , lots of pain in the toe with the pin , pt states that after her dog stepped on the toe and she felt a little pain, and that couple of days ago, pt states that last night after doing some extra walking she felt a lot more pain in the toe and is unsure why , Post Op 2, referral done, pt states that she is here for post op appointment , pt states that the pain is coming and going and that she has had to take a couple of the oxy , Dressing Change, pt states that she is here for a dressing change today as her shower bag leaked this morning and that her bandage got wet, post op dressing, POST OP 1, referral done,pt states that she is here for her first post-op, pt states that the pain didn't get to bad until about the 3rd day , pt states that she has taken a couple oxy's at bedtime , post-op prescription, Repair of Right Hammertoe, Right 4th PIPJ arthrodesis - ? ST Local, Pre Op Covid Test, Surg 07/07 [facility] , covid testing notification, pt states that she is here for pre op appointment -[facility] , pt states that she will be having surgery on her fourth right toe , 8 week, 4 week, 2 week, 1 week, referral done, Hammertoe, pre-op Referral Done, Last seen by ALR on 12/23 for hammertoes on both feet -[facility] , pt states that she is here for her pre-op appointment , pt states that she had CTR on left wrist on 02/03/2020and that she had a bad reaction to the anasetishia , pt states that she has some other questions about a couple toes on tne right foot , unspecified acquired deformity of unspecified lower leg referraldone, pt states that she is her for hammer toe of the right foot , pt states that the toe is causingher pain and that it is been bothering her for a while now Insurance Providers Formerly [facility] Health Member Patient Patient Patient Patient Patient Subscriber Subscriber Subscriber Group Insurance Plan Plan Plan Plan ID Relationship Address Phone Name Date of ID Name Date of No Type Insurance Insurance Insurance Coverage to Subscriber Address Phone Name Dates MEDICARE [address] [place] 1950 [id number] [facility] [id number] SELF PAY [address] STRE[address] S[place]Y [place] 1950 [place] [address] CROSS S-MEDICOMP [phone] [place] 1950 [id number] [place] 4^[place] [id number] [place] [id number] MEDICAL (GENERAL) HISTORY Type Description Date Medical History Abnormal auditory perception Medical History Acute right hip pain Medical History Adenocarcinoma Medical History ADD (attention deficit disorder) Medical History Anorexia Medical History Cervical lesion Medical History Constipation Medical History Chronic depression Medical History ganglion cyst of right knee, resloved Medical History fracture of radius, resloved Medical History Depression Medical History Migraine headache Medical History Carpal tunnel syndrome Medical History Tinnitus Surgical History carel tunnel relsease, right had Surgical History Surgical History ganglion right knee Surgical History breast reduction Surgical History tubal ligation Surgical History left shoulder, removel of part of the cl avical Surgical History upper left left lung lumpectomy for canc er 2013 Surgical History Appendectomy Surgical History Colonoscopy-IV sedation Surgical History EGD 2017 Surgical History Reduction Mammoplasty 1989 Surgical History CTR left 02/03/2020 Surgical History Right hip injection 02/03/2020 Surgical History Arthodesis,proximal interphalangeal join t right 4th 07-07-2020 toe,[facility], Martina
[2020-11-21] MEDS: Inhaler, Assist Device 1 EACH MC (14:53)
[2020-11-21] MEDS: Albuterol HFA 18 GM 200 PUFF INH IH (14:53)
--- NOTE | 2020-11-22 09:21 | W.PFT ---
Date of service: 11/21/20 Time of Service: 12:58 Pulmonary Function Test Result Interpretation Spirometry: Shows mild obstructive airways disease with no bronchodilator response Lung Volumes: No evidence of restriction Diffusion Capacity: Mildly reduced diffusion capacity which is normal when corrected to alveolar volume Airway Pressure: normal Impression Mild obstructive airways disease with no bronchodilator response and this study was compared to previous one from 12/07/2013, the patient has a total of 280 cc decrease in FVC, FEV1 has decreased by 490 cc Clinical Correlation therefore is recommended.
== END 2020-11-21 09:28 ==
PROVIDERS: PCP Family Medicine; Visit Provider Family Medicine
DX: R06.02 Shortness of breath (principal); Z85.118 Personal history of other malignant neoplasm of bronchus and lung; Z87.891 Personal history of nicotine dependence
CPT/HCPCS: 94060; 94726; 94729

== ENCOUNTER 2020-11-30 04:26 | Outpatient (CLI) | payer MEDICARE, BC, SELFPAY ==
[2020-11-30 11:17] LABS: TSH (W/Ref FT4) 1.09 uIU/mL (0.36-3.74)
== END 2020-11-30 04:46 ==
PROVIDERS: PCP Family Medicine; Visit Provider Family Medicine
DX: E03.9 Hypothyroidism, unspecified (principal)
CPT/HCPCS: 36415; 84443

== ENCOUNTER 2021-03-15 11:51 | Outpatient (CLI) | payer MEDICARE, BC, SELFPAY ==
--- NOTE | 2021-03-15 10:45 | DI.RAD_ITS ---
EXAM: XR PELVIS AP CLINICAL HISTORY: PRE OP R CHANDLER. TECHNIQUE: 2D digital imaging was performed. COMPARISON: X-rays 11/17/2018 FINDINGS: Is no evidence of pelvic nor hip fracture. However, there has been progression of degenerative chapa e in the right hip which now exhibits moderate degenerative change. Mild degenerative changes in the left hip. Sacroiliac joints appear unremarkable. IMPRESSION: DATA REPOSITORY: RADIATION DOSE DELIVERED:
== END 2021-03-15 11:52 | disposition home or self-care (01) ==
LOC: DIORS 11:53
PROVIDERS: PCP Family Medicine; Referring Provider Family Medicine; Visit Provider Physician Assistant
DX: Z01.818 Encounter for other preprocedural examination (principal); M16.11 Unilateral primary osteoarthritis, right hip; M25.551 Pain in right hip
CPT/HCPCS: 72170

== ENCOUNTER 2021-03-20 03:42 | Outpatient (CLI) | payer MEDICARE, BC, SELFPAY ==
[2021-03-20 09:50] LABS: HCT 42.4 % (36.0-46.0); HGB 13.9 g/dL (11.2-15.7); MCH 31.5 pg (27.0-33.0); MCHC 32.8 % (32.0-36.0); MCV 96.1 fL (80-95); MPV 9.4 fL (8.0-11.0); Platelet Count 257 10^3/uL (130-400); RBC 4.41 10^6/uL (3.93-5.22); RDW-SD 49.9 fL; WBC 8.38 10^3/uL (4.4-10.8)
[2021-03-20 10:38] LABS: Anion Gap 9.7 mmol/L (3-11); BUN 15 mg/dL (7-18); CO2 28.3 mmol/L (21.0-32.0); CREATININE 0.6 mg/dL (0.55-1.02); Calcium 9.4 mg/dL (8.5-10.1); Chloride 106 mmol/L (98-107); Glucose 130 mg/dL (74-106); Potassium 4.1 mmol/L (3.5-5.1); Sodium 144 mmol/L (136-145)
== END 2021-03-20 03:43 | disposition home or self-care (01) ==
LOC: LBO 03:43
PROVIDERS: PCP Family Medicine; Visit Provider Student in an Organized Health Care Education/Training Program
DX: M25.551 Pain in right hip (principal); M16.11 Unilateral primary osteoarthritis, right hip; Z01.818 Encounter for other preprocedural examination; Z01.812 Encounter for preprocedural laboratory examination
CPT/HCPCS: 36415; 80048; 85027; 86850; 86900; 86901; 87635

== ENCOUNTER 2021-03-20 04:13 | Outpatient (CLI) | payer MEDICARE, BC, SELFPAY ==
[2021-03-20 10:28] LABS: Source Nasal/Nares
[2021-03-20 13:22] LABS: COVID-19 PCR Negative (Negative)
== END 2021-03-20 04:14 | disposition home or self-care (01) ==
LOC: LBO 04:13
PROVIDERS: PCP Family Medicine; Visit Provider Student in an Organized Health Care Education/Training Program
DX: Z20.822 Contact with and (suspected) exposure to COVID-19 (principal); Z01.818 Encounter for other preprocedural examination
CPT/HCPCS: 87635

== ENCOUNTER 2021-03-21 07:27 | Day surgery (SDC) | payer MEDICARE, BC, SELFPAY ==
[2021-03-21] VITALS (16 sets, daily range): BP systolic 68–139; BP diastolic 46–75; PULSE 46–72; RESP 10–20; TEMP 35.8–36.6; O2SAT 93–98; BMI 24.0
--- NOTE | 2021-03-21 06:16 | ANES.PREOP_ITS ---
General Info Date of Service Date Performed: 03/21/21 Height: 5 ft 4 in Weight: 63.503 kg Body Mass Index (BMI): 24.0 Surgical Procedure: Operation Date: 03/21/21 09:05 Proposed Procedures Side Surgeon p Hip Total Hip Anterior Right Shmuel Cid MD Meds Allergies and Home Medications Allergies Allergy/AdvReac Type Severity Reaction Status Date / Time propofol AdvReac Severe Other (See Verified 03/21/21 07:38 Comment) gabapentin AdvReac Intermediate Made me Verified 03/21/21 07:38 crazy Home Medication Medication Instructions Recorded valacyclovir 500 mg tablet 500 mg PO BID PRN #42 tab 02/19/19 albuterol sulfate 90 mcg/actuation 2 puff IH QID PRN #18 gm 03/02/20 aerosol inhaler levothyroxine 50 mcg tablet 50 mcg PO DAILY #90 tab-cap 06/22/20 clonazepam 0.5 mg tablet 0.5 mg PO .COMPLEX PRN #180 tab 11/24/20 MDD 3 sucralfate 1 gram tablet 1 g PO TID #21 tab 03/08/21 [id number] 1 ea INHALATION DAILY 03/17/21 [Trelegy Ellipta] acetaminophen 1,000 mg PO Q8H PRN PRN #90 cap 03/21/21 aspirin 81 mg PO BID #60 tab 03/21/21 celecoxib 200 mg PO BID #60 cap 03/21/21 oxycodone 5 mg PO Q4H PRN #20 cap 03/21/21 pantoprazole 40 mg PO DAILY #30 tab 03/21/21 Current Visit Medications: Current Medications Generic Name Dose Route Start Last Admin Trade Name Freq PRN Reason Stop Dose Admin Acetaminophen 1,000 mg 03/21/21 06:00 Acetaminophen 500 Mg Tab PO 03/21/21 16:00 PREOP JUAN CARLOS Celecoxib 400 mg 03/21/21 06:00 Celecoxib 200 Mg Cap PO 03/21/21 16:00 PREOP JUAN CARLOS Tranexamic Acid 1,000 mg/ 60 mls @ 360 mls/hr 03/21/21 06:00 Sodium Chloride IV 03/21/21 16:00 PREOP JUAN CARLOS Ringer's Solution 1,000 mls @ 80 mls/hr 03/21/21 06:00 IV 04/19/21 23:59 INFUSION JUAN CARLOS Cefazolin Sodium/Dextrose 2 gm in 50 mls @ 100 mls/hr 03/21/21 06:00 Ancef Duplex IVPB 03/21/21 23:59 PREOP JUAN CARLOS IV Miscellaneous Supplies 1 each 03/21/21 06:00 Iv Access IV 04/19/21 23:59 DIRECTED JUAN CARLOS Sodium Chloride 0 ml 03/21/21 06:00 Normal Saline Flush 10 Ml Syr IV 04/19/21 23:59 PRN PRN Sodium Chloride 0 ml 03/21/21 06:00 Normal Saline 10 Ml Vial IJ 04/19/21 23:59 DIRECTED PRN Sterile Water 0 ml 03/21/21 06:00 Water,Injection,Sterile 10 Ml Vial IJ 04/19/21 23:59 DIRECTED PRN Vital Signs and Lab Results Point of Care Results Nursing Point of Care Results: No Data to Display Lab Results Blood Type / Crossmatch: Patient ABO/Rh A Positive 03/20/21 09:38 03/20/21 Antibody Screen Negative 03/20/21 09:38 03/20/21 Complete Blood Count: White Blood Count 8.38 10^3/uL (4.4-10.8) 03/20/21 09:38 03/20/21 Red Blood Count 4.41 10^6/uL (3.93-5.22) 03/20/21 09:38 03/20/21 Hemoglobin 13.9 g/dL (11.2-15.7) 03/20/21 09:38 03/20/21 Hematocrit 42.4 % (36.0-46.0) 03/20/21 09:38 03/20/21 Platelet Count 257 10^3/uL (130-400) 03/20/21 09:38 03/20/21 Complete Metabolic Panel: Sodium Level 144 mmol/L (136-145) 03/20/21 09:38 03/20/21 Potassium Level 4.1 mmol/L (3.5-5.1) 03/20/21 09:38 03/20/21 Chloride Level 106 mmol/L (98-107) 03/20/21 09:38 03/20/21 Carbon Dioxide Level 28.3 mmol/L (21.0-32.0) 03/20/21 09:38 03/20/21 Blood Urea Nitrogen 15 mg/dL (7-18) 03/20/21 09:38 03/20/21 Creatinine 0.6 mg/dL (0.55-1.02) 03/20/21 09:38 03/20/21 Calcium Level 9.4 mg/dL (8.5-10.1) 03/20/21 09:38 03/20/21 Albumin 3.8 g/dL (3.4-5.0) 05/27/18 12:22 05/27/18 Glucose Level 130 mg/dL (74-106) H 03/20/21 09:38 03/20/21 C-Reactive Protein < 0.05 mg/dL (0.0-0.3) 05/27/18 12:22 05/27/18 Liver Function Panel: Alanine Aminotransferase (ALT/SGPT) 18 U/L (12-78) 05/27/18 12:22 05/27/18 Aspartate Amino Transf (AST/SGOT) 12 U/L (15-37) L 05/27/18 12:22 05/27/18 Coagulation Panel: No Data to Display Cardiac Panel: No Data to Display Arterial Blood Gas: No Data to Display Venous Blood Gas: No Data to Display Pancreas Panel: Lipase 81 U/L (73-393) 05/12/18 15:45 05/12/18 Thyroid Panel: Thyroid Stimulating Hormone (TSH) 1.09 uIU/mL (0.36-3.74) 11/30/20 09:58 11/30/20 Infectious Disease: Coronavirus (COVID-19)(PCR) Negative (Negative) 03/20/21 09:48 03/20/21 Coronavirus 2019 Source Nasal/nares 03/20/21 09:48 03/20/21 Blood Cultures: No Data to Display Toxicology Panel: No Data to Display Panel: No Data to Display PFSH Active Problems Active Problems: Problem Status Onset Code History of carpal tunnel surgery of right wrist Z98.890 Vaginal atrophy N95.2 Pneumonia J18.9 Left carpal tunnel syndrome G56.02 Polyp of duodenum ~01/28/20 K31.7 Tick bite W57.XXXA Fever R50.9 Tinnitus H93.19 Chronic hip pain M25.559, G89.29 Sensorineural hearing loss (SNHL) of both ears H90.3 Shortness of breath R06.02 Migraine headache without aura G43.009 Primary osteoarthritis of right hip M16.11 Adenocarcinoma of lung 07/13/14 C34.90 Hypertension 09/09/14 I10 Depression Tinnitus 05/13/14 H93.19 Post-concussion headache 08/03/15 G44.309 Hypothyroidism 07/19/17 E03.9 Functional memory problem 04/21/15 R41.3 Abnormal auditory perception 03/02/14 H93.299 ADD (attention deficit disorder) 09/06/16 F98.8 Family history of colon cancer in father Z80.0 Constipation K59.00 Medical History (Updated 03/17/21 @ 15:11 by Shaw Vazquez) Abnormal auditory perception (03/02/14) NEAL Acute right hip pain 03/12/16 ADD (attention deficit disorder) (09/06/16) Adenocarcinoma of lung (07/13/14) s/p ressection. SARAH Anorexia Cervical lesion 08/24/0909/02 cervical leiomyoma removed at [facility] Constipation Cough 10/08/16 Depression hospitalization w/ ect and medication 12/2018 Depressive disorder (10/24/84) history of kee Family history of colon cancer in father Fracture of radius 10/24/04 left Functional memory problem (04/21/15) Ganglion cyst right knee H/O reduction of closed fracture 11/25/04 left radius Hx of stroke without residual deficits Hypertension (09/09/14) pt. denies this Hypothyroidism (07/19/17) Impetigo 03/02/14 Migraine headache without aura Myalgia Nausea alone Post-concussion headache (08/03/15) Primary osteoarthritis of right hip Injection under fluro: 05/19/19 Rhinitis (09/02/14) Right carpal tunnel syndrome S/P ECTR Smoker 11/25/84 Sprain of right little finger Syncope Tinnitus (05/13/14) Unintentional weight loss Surgical History Appendectomy section Colonoscopy - IV Sedation (09/19/16) Last Colonoscopy 08/12- hyperplastic polyp EXCISION OF GANGLION CYST (09/13/15) DR. DORAN; RIGHT KNEE Excision of left distal clavicle (10/17/16) Dr. Driesbach Fracture, Closed Treatment (~2004) left radius H/O section H/O excision of ganglion cyst 09/13/15 History of esophagogastroduodenoscopy (EGD) (~07/2018) Hx of appendectomy Hx of breast reduction, elective 11/25/89 Reduction mammoplasty (~1989) Social History Smoking/Tobacco Use Status: Former Tobacco Use Quit Date: 11/25/79 Smoking risk assessment performed?: Yes Alcohol Intake: current Alcohol Intake frequency: a few times a week Alcohol type: beer, wine and hard liquor Drug use: Never Substance use type: does not use Details: alcohol: t-1, fifty ml. marijuana: Current gender identity: female Do you feel safe at home: Yes Do you feel safe in your relationship?: Yes Additional Social history: cannot ask privately Imaging and Studies Imaging and Studies EKG Summary:: 2019: Sinus paloma, left atrial enlargement. Echocardiogram Summary:: 09/2014:LVEF 60-65%, mild MR, PAS 25-30%. Pulmonary Function Test Summary:: 10/2020: Mild obstructive airway dsease with no bronchodilator response. mild reduction in diffusion capacity. Other Study Summary:: 2013 MRA of the neck: no evidence of significant stenosis or aneurysm. Anesthesia Assessment and Plan Anesthesia History Personal History: No History of Anesthesia Complications Family History: No Family History of Anesthesia Complications and Family History Unknown Exercise Tolerance Exercise Tolerance: Metabolic Equivalents>4 Cardiac & Pulmonary Exam Cardiac Exam: Normal S1/S2 Heart Sounds Pulmonary Exam: Clear Bilateral Breath Sounds Airway Exam Known Difficult Airway: No Mallampati Class: 3 Mouth Opening: Narrow (< 3cm) Thyromental Distance: Less than 3 cm Neck Range of Motion: Full ROM Neck Circumference: Normal Teeth Condition: Normal Dentition ASA Classification ASA Score: ASA 3 ASA Emergency: No NPO Status NPO Status: NPO Clears >2 hours, Solids >8 hours Anesthesia Plan Anesthesia Technique: Spinal Anesthesia Airway Planned: Natural Airway Monitors Used: Standard Monitors Preoperative Comments:: 70 yo for CHANDLER - right. Hx of Lung CA s/p VATS at [facility] 2013, Hypothyroid, lacunae infarct 2012, Hypertension listed as a problem but not on medications, COPD (trelegy ellipta, and albuterol), hypothyroid (stable on levothyroxine). Has an adverse reaction of going crazy from propofol in the past. Previous anesthetics have been a mix of midaz, ketamine and fentanyl with sevo. LMA #4 also in the past. Plan for short acting spinal, dexmed/midaz/ketaine for sedation.
--- NOTE | 2021-03-21 07:37 | W.PM.DSUDISC ---
Documented by User: JOSESITO Benoit 03/21/21 08:05 Discharge Plan Disposition Patient Disposition: HOME Condition: Good Discharge Details Reason For Visit: Right CHANDLER Attending Provider: Shmuel Cid Primary Care Provider: Aurelia Bobby Home Meds and New Rx's Prescriptions: New celecoxib 200 mg capsule 200 mg PO BID Qty: 60 RF: 0 aspirin 81 mg tablet,delayed release (DR/EC) 81 mg PO BID Qty: 60 RF: 0 pantoprazole 40 mg tablet,delayed release (DR/EC) 40 mg PO DAILY Qty: 30 RF: 0 oxycodone 5 mg capsule 5 mg PO Q4H PRNQty: 20 RF: 0 acetaminophen 500 mg capsule 1,000 mg PO Q8H PRN PRNQty: 90 RF: 0 Continued valacyclovir 500 mg tablet 500 mg PO BID PRN (Reason: herpes) Qty: 42 RF: 11 sucralfate [Carafate] 1 gram tablet 1 g PO TID Qty: 21 RF: 0 albuterol sulfate [Ventolin HFA] 90 mcg/actuation HFA aerosol inhaler 2 puff IH QID PRN (Reason: shortness of breath or wheezing) Qty: 18 RF: 7 levothyroxine 50 mcg tablet 50 mcg PO DAILY Qty: 90 RF: 11 clonazepam 0.5 mg tablet 0.5 mg PO .COMPLEX MDD 3 PRN (Reason: anxiety) Qty: 180 RF: 1 Trelegy Ellipta 100-62.5-25 mcg blister with device 1 ea INHALATION DAILY RF: 0 Discontinued acetaminophen 500 mg tablet 500 mg PO Q6H PRN PRN (Reason: pain) Qty: 60 RF: 0 ibuprofen 600 mg tablet 600 mg PO TID PRN PRNQty: 90 RF: 0 Discharge Instructions Additional Instructions: Total Hip Discharge Instructions Activity: The most important activity is to walk. You should try to take short walks a few times a day. You have no restrictions on movement or positioning, but do not try to force what you do. You will find some stiffness and weakness with hip flexion (lifting your knee). Do not try to strengthen this too early, continue to practice walking and stairs and this will come. - Outpatient physical therapy can be helpful to help return you to a normal gait and improve your flexibility and strength. This can start around 2 weeks. For some patients, it?s not necessary. Usually this is determined at the time of discharge or at the first post-operative visit. - You should wear the BRODIE hose on both legs for 2 weeks. Dressing: Keep the surgical dressing in place for at least one week. After the first week it may be removed and replace with light gauze and tape or nothing. It may get wet after 3 days but avoid soaking the dressing. If it gets wet, just lightly pat dry. It is important to always keep some gauze between skin folds, especially when you are sitting. Spend some time with the wound exposed when you are lying flat as the incision does wrinkle onto itself. Medications: - You should take Tylenol and an anti-inflammatory Celebrex as your primary pain control medications. If the Celebrex is too expensive or not covered, please call the office for another alternative (Advil/Ibuprofen or Naproxen/Aleve). - You have been prescribed a stronger pain medication Oxycodone for breakthrough pain, take as needed as prescribed. - You have also been prescribed a stomach acid reduction agent Pantoprozole to help reduce stomach acid and reflux. - You will be taking Aspirin 81mg twice a day for DVT prevention unless instructed otherwise. - If you have constipation you should take Colace or Miralax (both [id number]). It takes most people 3-4 days to have a bowel movement. Follow-up: 2 weeks If you have any acute concerns or questions, please do not hesitate to contact the office at [phone]. You may contact Dr. Cid with any questions after hours through the hospital at [phone] or on his cell phone at [phone]. Stand Alone Forms: Anesthesia Discharge Inst., Kanwal Nguyen ([facility]) Referrals: Shmuel Cid MD [ [facility]] - Equipment/Supplies: Walker Activity:: Activity as Tolerated Shower/Bathe:: Cover Diet:: As Tolerated Discharge Orders Discharge Orders: Discharge Order (Routine); Ordered 03/21/21 Ordered By: Shmuel Cid DS: Diagnosis Discharge Diagnosis (1) Primary osteoarthritis of right hip: Status: Chronic Documented by User: Shmuel Cid MD 03/21/21 13:07 Discharge Plan Disposition Patient Disposition: HOME Condition: Good Discharge Details Reason For Visit: Right CHANDLER Attending Provider: Shmuel Cid Primary Care Provider: Aurelia Bobby Home Meds and New Rx's Prescriptions: New celecoxib 200 mg capsule 200 mg PO BID Qty: 60 RF: 0 aspirin 81 mg tablet,delayed release (DR/EC) 81 mg PO BID Qty: 60 RF: 0 pantoprazole 40 mg tablet,delayed release (DR/EC) 40 mg PO DAILY Qty: 30 RF: 0 oxycodone 5 mg capsule 5 mg PO Q4H PRNQty: 20 RF: 0 acetaminophen 500 mg capsule 1,000 mg PO Q8H PRN PRNQty: 90 RF: 0 Continued valacyclovir 500 mg tablet 500 mg PO BID PRN (Reason: herpes) Qty: 42 RF: 11 sucralfate [Carafate] 1 gram tablet 1 g PO TID Qty: 21 RF: 0 albuterol sulfate [Ventolin HFA] 90 mcg/actuation HFA aerosol inhaler 2 puff IH QID PRN (Reason: shortness of breath or wheezing) Qty: 18 RF: 7 levothyroxine 50 mcg tablet 50 mcg PO DAILY Qty: 90 RF: 11 clonazepam 0.5 mg tablet 0.5 mg PO .COMPLEX MDD 3 PRN (Reason: anxiety) Qty: 180 RF: 1 Trelegy Ellipta 100-62.5-25 mcg blister with device 1 ea INHALATION DAILY RF: 0 Discontinued acetaminophen 500 mg tablet 500 mg PO Q6H PRN PRN (Reason: pain) Qty: 60 RF: 0 ibuprofen 600 mg tablet 600 mg PO TID PRN PRNQty: 90 RF: 0 Discharge Instructions Additional Instructions: Total Hip Discharge Instructions Activity: The most important activity is to walk. You should try to take short walks a few times a day. You have no restrictions on movement or positioning, but do not try to force what you do. You will find some stiffness and weakness with hip flexion (lifting your knee). Do not try to strengthen this too early, continue to practice walking and stairs and this will come. - Outpatient physical therapy can be helpful to help return you to a normal gait and improve your flexibility and strength. This can start around 2 weeks. For some patients, it?s not necessary. Usually this is determined at the time of discharge or at the first post-operative visit. - You should wear the BRODIE hose on both legs for 2 weeks. Dressing: Keep the surgical dressing in place for at least one week. After the first week it may be removed and replace with light gauze and tape or nothing. It may get wet after 3 days but avoid soaking the dressing. If it gets wet, just lightly pat dry. It is important to always keep some gauze between skin folds, especially when you are sitting. Spend some time with the wound exposed when you are lying flat as the incision does wrinkle onto itself. Medications: - You should take Tylenol and an anti-inflammatory Celebrex as your primary pain control medications. If the Celebrex is too expensive or not covered, please call the office for another alternative (Advil/Ibuprofen or Naproxen/Aleve). - You have been prescribed a stronger pain medication Oxycodone for breakthrough pain, take as needed as prescribed. - You have also been prescribed a stomach acid reduction agent Pantoprozole to help reduce stomach acid and reflux. - You will be taking Aspirin 81mg twice a day for DVT prevention unless instructed otherwise. - If you have constipation you should take Colace or Miralax (both [id number]). It takes most people 3-4 days to have a bowel movement. Follow-up: 2 weeks If you have any acute concerns or questions, please do not hesitate to contact the office at [phone]. You may contact Dr. Cid with any questions after hours through the hospital at [phone] or on his cell phone at [phone]. Stand Alone Forms: Anesthesia Discharge InstCristina, Kanwal Nguyen (U) Referrals: Shmuel Cid MD [ [facility]] - Equipment/Supplies: Walker Activity:: Activity as Tolerated Shower/Bathe:: Cover Diet:: As Tolerated Discharge Orders Discharge Orders: Discharge Order (Routine); Ordered 03/21/21 Ordered By: Shmuel Cid
[2021-03-21] MEDS: Acetaminophen 500 MG TAB 1000 MG PO ×2 (07:52→14:06)
[2021-03-21] MEDS: Celecoxib 200 MG CAP 400 MG PO (07:53)
[2021-03-21] MEDS: Lactated Ringers 1,000 ML 80 ML IV (08:01)
[2021-03-21] MEDS: ceFAZolin 2 GM/50 ML BAG IVPB (08:38)
[2021-03-21] MEDS: Bupivacaine 0.25% Pres-Free 30 ML VIAL (09:15)
[2021-03-21] MEDS: Ketorolac 30 MG/ML VIAL (09:16)
--- NOTE | 2021-03-21 09:35 | DI.RAD_ITS ---
EXAM: XR HIP RT IN OR CLINICAL HISTORY: Right total hip replacement TECHNIQUE: 2D and realtime digital imaging was performed. CONTRAST MATERIAL: Refer to procedure report. COMPARISON: No exams were available for comparison FINDINGS: Fluoroscopy was provided for Dr. Cid during the performance of a right total hip replacement. Please refer to the procedure report for complete details. Kar=3.08 mGy IMPRESSION: RADIATION DOSE DELIVERED:
--- NOTE | 2021-03-21 10:01 | ROE_ITS ---
Date of service: 03/21/21 Time of Service: 10:02 Operative Note Operative Note DATE OF PROCEDURE: 03/21/21 PRE-OP DIAGNOSIS: Right Hip Osteoarthritis POST-OP DIAGNOSIS: same PROCEDURE: Right Anterior Total Hip Arthroplasty with Intraoperative Navigation SURGEON: Shmuel Cid MACHINE PIE MAKER: Bashir Haq ANESTHESIA TYPE: Spinal Refer to Anesthesia Record ESTIMATED BLOOD LOSS: 300 PATHOLOGY: none sent TOURNIQUET TIME: 0 COMPLICATIONS: None Patient was transported to: PACU Patient's condition: stable Implants: 1. Depuy [place] Acetabular Component, 50mm 2. Depuy Acetabular Liner, [id number] 3. Depuy Corail Standard 125 Collared Femoral Stem, Size 11 4. Depuy Altrx Ceramic Femoral Head, Size 32+5mm Indications: I have seen Isaura in clinic for symptoms of hip arthritis, confirmed with radiographic findings. She has exhausted nonoperative methods and was having significant limitations in daily function and desired better function and less pain. I discussed the technical details of a hip replacement. I explained the risks of the procedure to include, but not limited to, bleeding, infection, pain, stiffness, fracture, damage to nerves and vessels, damage to muscles and tendons, loosening, instability, leg length inequality, need for repeat procedure, blood clot and cardiopulmonary demise. Despite these risks, Isaura elected to proceed. Findings: There was significant signs of arthritis throughout the hip. There is severe irregularity notable loss of cartilage of the superior femoral head as well as chondromalacia of the acetabulum. Procedure Description: Isaura was greeted in the preoperative holding area where the correct side was identified and marked. The consent was reviewed with the patient and signed. The history and physical was updated. All questions were answered. She was taken back to the operating room. A spinal anesthestic was then administered. The feet were wrapped with cast padding and Coban and then placed into the boot liners and then into the boots. Care was taken to protect the skin and make sure the heels were fully down and the boots were stable. The patient was then positioned onto the HANA table. Both legs were held in a neutral position. SCDs were applied. The patient was then slid down onto a peroneal post. Prophylactic antibiotics in the form of Cefazolin were administered. 1g of Tranxemic Acid was given intravenously within 30 minutes of incision. The right leg was then prepped with Chloraprep and draped in a standard fashion. A second prep with Chloraprep was performed prior to placement of a shower-curtain type drape with Iodine impregnated skin protection. A timeout to confirm correct identity, side and site, procedure, allergies, anesthesia, and medical concerns was performed. An obliquely oriented incision was made starting lateral to the ASIS and running distal over the Tensor Fascia Nuria (TFL) muscle belly toward the fibular head, approximately 10cm. The skin and soft tissue was dissected sharply, through Alden?s fascia, and to the fascia of the TFL. With the fascia and superior border of the IT band identified, the fascia was incised with a new knife just above any perforators from the IT band. The TFL muscle belly was bluntly dissected away from the fascia and moved laterally. The fat between TFL and rectus was identified to ensure the dissection was not within the TFL. Blunt dissection created space between abductors and the capsule and retractor was placed over the lateral femoral neck. The fibers of the rectus femoris tendon were identified and these were freed from the anterior capsule. A second cobra retractor was placed around the medial femoral neck. The TFL was further retracted laterally to show the deep fascia. Careful dissection through this layer identified three main crossing vessels of the lateral femoral circumflex. These were cauterized in multiple locations and then cut without any noticeable bleeding. The TFL was further released bluntly from the deep fascia to expose anterior hip capsule and fat The Yahir orthopaedic retractor was then placed beneath the TFL and against sartorius and medial soft tissues to protect and retract the soft tissues. A T-capsulotomy was then performed starting at the superior lateral acetabulum and moving distally to the intertrochanteric ridge. These capsular flaps were tagged with a No. 1 Ethibond and elevated from within. The capsular flaps were released to the shoulder of the lateral neck and to the lesser trochanter to give excellent visualization of the proximal femur. A neck osteotomy was performed using an oscillating saw based on preoperative templates. This cut started in the shoulder and of the lateral neck and exited medially. The saw was at all times directed medially to avoid injury to the greater trochanter. Gross traction was applied to the leg and the osteotomy opened. The femoral head was removed with a corkscrew, making sure to protect the TFL on its exit. Traction was released after head removal. This was measured on the back table to determine the starting reamer size. Portions of the rectus obscuring visualization were minimally elevated off the superior acetabulum. An anterior retractor was placed over the anterior wall between capsule and labrum and attached to the Gripper retraction system. The femur was rotated to 90 degrees and medial capsule was fully released until the lesser trochanter was palpable and visible; the femur was returned to 30 degrees. A posterior retractor was placed similarly between capsule and labrum. This provided excellent visualization. The contents of the cotyloid fossa were removed with electrocautery and the labrum was removed with a knife. There was a notable floor osteophyte. 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 Acetabular reaming began with a 46mm reamer. This first reaming was directed anterior to posterior and medial to get down to the true floor. This was inspected and reamed until the true floor was reached. The anterior retractor was then released and entry and exit was provided by traction on the capsular flaps. I then reamed sequentially up to a 50mm reamer where good fit was obtained. The larger reamers were oriented based on anatomical reference of the anterior and lateral walden to ensure proper abduction and anteversion. Positioning and size was confirmed with the fluoroscopy. A 50mm Depuy [place] acetabular component was selected. The acetabulum was reamed around the periphery with the selected acetabular size to prevent a rim fit. The deep tissues were irrigated. The acetabular component was then impacted in a position of about 40-45 degrees of abduction and 15-20 degrees of anteversion, using the patient?s anatomy as the ultimate landmark. Fluoroscopy was used to confirm this. There was excellent refrigeration supervisor of the acetabular component and the inserting handle was removed. The acetabular liner, Depuy [id number] polyethylene liner, was inserted and lined up with the tines of the acetabular component. There was no soft tissue interposition. The liner was then impacted into position and confirmed to be well-seated. A portion of the gary-articular cocktail was then injected around the acetabulum into the capsule and periosteum. This cocktail consisted of 50cc of 0.25% Bupivicaine and 20cc of Exparel and 30mg of Ketorolac. The leg was rotated to 120 degrees. Any remaining medial capsule was released until the lesser trochanter was easily palpable. A retractor was placed medial ly. The lateral capsule was further released into the shoulder to allow access to the greater trochanter. A Reid retractor was placed over the greater trochanter which allowed the trochanter to flip in front of the capsule for excellent exposure. The leg was brought down into maximal extension and 20 degrees of adduction while ensuring there was no impingement on the acetabulum. Any remnant capsule within the trochanter was released. Piriformis and obturator externis were identified and protected. There was excellent access to the proximal femur. The lateral neck remnant was removed with a rongeur. A blunt canal probe was used to identify the canal and trajectory for later broaching. A box osteotome initiated the broach course. A small curved rasp and a curved curette were used to work laterally. Broaching then began with a size 8 Corail broach. This was inserted manually around the trochanter and into the canal before mallet blows. The broach was seated to a few millimeters below the cut level based on the neck cut and the preoperative template. Sequential broaching was continued with the [employer] pneumatic broaching device until a tight fit was obtained with good rotational control of the femur. A trial standard 125 neck was inserted along with a +5 trial head. The leg was brought out of extension and adduction and then reduced with traction and internal rotation. The leg was stable anteriorly in a position of 30 degrees of extension and 90 degrees of external rotation. Fluoroscopy was used to ensure there was no fracture and the stem was seated well. Leg lengths were checked with an AP pelvis and pelvic reference points. Sferra navigation system was used to confirm appropriate positioning and leg length and offset. Once content with the desired offset and leg lengths, the leg was brought back into extension, external rotation and adduction. The periosteum and surrounding tissue was injected with remaining portion of the gary-articular cocktail. The proximal femur was irrigated as well as the deep tissues. The Depuy [place] standard 125 collared stem, size 11, was then manually inserted into the proximal femur making sure to control rotation. It was then malleted into position with light blows, giving breaks to allow bone expansion and decrease risk of fracture. The selected Depuy Altrx Ceramic Head, size 32+5mm, was then placed onto the clean and dry trunnion and secured with impaction onto the tapered fit. The leg was brought back out of extension and adduction and reduced with traction and internal rotation. Stability was confirmed with no shuck at 90 degrees of external rotation and 30 degrees of extension. No impingement through range of motion arc. Final x-ray images were obtained with fluoroscopy to confirm adequate positioning and no intraoperative fracture. The deep tissues were thoroughly irrigated with Irrisept chlorhexadine solution. The capsule was then reapproximated with the previously placed Ethibond sutures. The TFL fascia was finally closed with a No. 2 Stratafix, barbed suture. Deep tissues were then reapproximated with 0 Vicryl and a running 2-0 Vicryl. The skin was closed with a running 4-0 Monocryl in a subcuticular fashion. This was reinforced with skin glue. A Mepilex silver dressing was applied. At the end of the case, all counts were correct. Isaura was transferred to the stretcher without difficulty and suffering no apparent complication. Isaura has a good prognosis. Physical therapy will start today and without restrictions, weight-bearing as tolerated. Aspirin 81mg BID will be used for DVT prophylaxis.
[2021-03-21] MEDS: HYDROmorphone 2 MG/ML VIAL IVP ×2 (10:53→11:09)
[2021-03-21] MEDS: Normal Saline Flush 10 ML SYR IV (10:54)
--- NOTE | 2021-03-21 12:46 | W.ANESPOSTOP ---
Postoperative Evaluation Date, Time and Location Date Performed: 03/21/21 Time Performed: 12:46 Patient Location: PACU Vital Signs Most Recent Imported Vital Signs: Most Recent Vital Signs Temp Pulse Resp BP Pulse Ox 36.2 C L 60 16 119/73 95 03/21/21 12:38 03/21/21 12:38 03/21/21 12:38 03/21/21 12:38 03/21/21 12:38 Assessment Mental Status: Awake (Alert & Oriented to Patient Baseline) Airway and Respiratory Function: Patent airway with normal (patient baseline) respiratory exam Cardiovascular Function: Hemodynamically Stable Hydration Status: Adequately Hydrated Nausea & Vomiting: No Nausea or Vomiting Pain: Pain is tolerable/mild (<5/10) Peripheral Nerve Block: Patient did not receive a nerve block
--- NOTE | 2021-03-21 13:15 | PT.INIE ---
Date of service: 03/21/21 Time of Service: 13:15 PT Notes Visit Reasons: Right CHANDLER Physical Therapy Day Surgery Initial Evaluation Date: 03/21/2021 Referring Doctor: JOSESITO Benoit PT Orders: PT CONSULT: Eval/treat. Status post Ortho surgery. Precautions: WBAT on right LE with AD. Patient Profile/Admitting Diagnosis: Isaura is a 70-year-old female with primary unilateral osteoarthritis of the right hip and is status post right anterior total hip arthroplasty on postoperative day 0. PMHX: Medical History Abnormal auditory perception (03/02/14) NEAL Acute right hip pain 03/12/16 ADD (attention deficit disorder) (09/06/16) Adenocarcinoma of lung (07/13/14) s/p ressection. SARAH Anorexia Cervical lesion 08/24/0909/02 cervical leiomyoma removed at [facility] Constipation Cough 10/08/16 Depression hospitalization w/ ect and medication 12/2018 Depressive disorder (10/24/84) history of kee Family history of colon cancer in father Fracture of radius 10/24/04 left Functional memory problem (04/21/15) Ganglion cyst right knee H/O reduction of closed fracture 11/25/04 left radius Hx of stroke without residual deficits Hypertension (09/09/14) Hypothyroidism (07/19/17) Impetigo 03/02/14 Migraine headache without aura Myalgia Nausea alone Post-concussion headache (08/03/15) Primary osteoarthritis of right hip Injection under fluro: 05/19/19 Rhinitis (09/02/14) Right carpal tunnel syndrome S/P ECTR Smoker Sprain of right little finger Syncope Tinnitus (05/13/14) Unintentional weight loss Surgical History Appendectomy section Colonoscopy - IV Sedation (09/19/16) Last Colonoscopy 08/12- hyperplastic polyp EXCISION OF GANGLION CYST (09/13/15) DR. PATEL; RIGHT KNEE Excision of left distal clavicle (10/17/16) Dr. Patel Fracture, Closed Treatment (~2004) left radius H/O section H/O excision of ganglion cyst 09/13/15 History of esophagogastroduodenoscopy (EGD) (~07/2018) Hx of appendectomy Hx of breast reduction, elective 11/25/89 Reduction mammoplasty (~1989) Social History/Home Situation: Lives with in a private home with 5 steps to enter with rails on both sides. They have another set of steps to the second floor of their house where there bedroom is with rails on the first 6 steps and with a rail only on the left side for the latter 6 steps going up. Independent with all aspects of ADLs prior to surgery. 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 Reports 3/10 pain at rest and 4/10 pain with activity and the right hip. Denies headache, chest pain, and lightheadedness throughout session. Denies falls in the past 12 months. Objective: General Observation: Supine in ICU stretcher. Mepilex Ag over surgical incision. TDS in bilateral legs. IV access in right UE. Mental Status: Alert and oriented x4 Pain: 3/10 pain at rest and 4/10 pain with weightbearing in the right hip ROM: Right Lower Extremity: Hip flexion WFL. Hip abduction WFL. Knee flexion WFL. Ankle dorsiflexion WFL. Ankle plantarflexion WFL. Left Lower Extremity: Hip flexion WFL. Hip abduction WFL. Knee flexion WFL. Ankle dorsiflexion WFL. Ankle plantarflexion WFL. Strength: Right Lower Extremity: Hip flexors 4/5. Hip abductors 4/5. Knee flexors 5/5. Knee extensors 4/5. Ankle dorsiflexors 5/5. Ankle plantarflexors 5/5. Left Lower Extremity:Hip flexors 5/5. Hip abductors 5/5. Knee flexors 5/5. Knee extensors 5/5. Ankle dorsiflexors 5/5. Ankle plantarflexors 5/5. Sensation: Intact as to pain and light pressure in bilateral lower extremities Bed Mobility/Transfers: Supine to sit supervision Sit to stand contact-guard assist Stand to sit standby assist Bed to chair standby assist Gait: Guided patient through level surface ambulation of 250 feet using a front-wheeled walker with step through gait pattern with report of increased pain to 4/10 pain in the right hip. Minimal verbal cues given for safe gait pattern and walker management. Nurse Blake provided wheelchair follow for safety. Stairs: Tolerated up-and-down three 4 inch steps and two 6 inch steps x2 while holding onto bilateral rails. Also try held three 4 inch steps into 6 inch steps with 1 hand holding onto a rail and with the other hand holding onto hiking pole. Step to gait pattern requiring standby assist. Balance: Static Sitting: Normal Dynamic Sitting: Normal Static Standing: Fair Dynamic Standing: Fair Special Tests: Mobility Limitations Standardized Measure [facility] AM-PAC 6 clicks Basic Mobility Inpatient Short Form: Raw Score: 20 CMS Score: 36% deficit Informed Consent/Education: Patient instructed in purpose of PT consult. Packet containing CHANDLER exercise protocol has been given to patient. Education and training on initial set of exercises that can be done at home have been completed with patient. Assessment: Isaura requires the use of a front wheeled walker for all mobility ADL performance in order to maximize safety and reduce fall risk at home. She will have the support of her as she recovers at home. Will benefit from outpatient PT services in order to achieve highest functional independence. Patient presents with clinical signs and symptoms consistent with current/admitting diagnoses that have resulted to mobility limitations, gait instability, generalized weakness, and impairment of motor control as demonstrated by the following impairment level findings: 1. Decreased strength to right hip major muscle groups 2. Impaired standing balance 3. Pain in right hip Impairments are contributing to the following functional limitations: 1. Inability to safely ambulate without assistive device 2. Increase completion time for mobility ADL performance 3. Increased fall risk Patient is assessed as a 45398 moderate complexity based on the following: History: 70-year-old female with impairment level findings, functional limitations, and past medical history as indicated above Examination: Demonstrable impairment in strength, balance, and mobility level with underlying impairments and functional limitations as documented above Presentation: Evolving Decision Makin moderate complexity Goals: N/A. PT evaluation and 1-2 treatment sessions only for functional mobility training using recommended AD and for HEP instruction. Plan of Care/Treatment Plan: N/A. PT evaluation and 1-2 treatment session only for functional mobility training using recommended AD and for HEP instruction. DISCHARGE RECOMMENDATIONS: Home when medically cleared by orthopedic surgeon. Outpatient PT services in order to achieve highest functional independence. Will benefit from the use of a front wheeled walker to maximize independence and reduce fall risk at home. TREATMENT CODE/TIME: 20320 x25 minutes, 05754 x 25 minutes beginning at 13:15 PM. Thank you for the opportunity to participate in the care of this patient. Mei Casillas PT, DPT, CLT [facility] [place], [place]
[2021-03-21] MEDS: oxyCODONE 5 MG TAB PO (14:06)
--- NOTE | 2021-03-21 14:25 | W.ANESPRE ---
General Info Height: 5 ft 4 in Weight: 64.4 kg Body Mass Index (BMI): 24.3 Surgical Procedure: Operation Date: 03/21/21 09:05 Proposed Procedures Side Surgeon p Hip Total Hip Anterior Right Shmuel Cid MD Actual Procedures Side Surgeon p Hip Total Hip Anterior Right Shmuel Cid MD Pre-Op Diagnosis Post-Op Diagnosis PRIMARY OSTEOARTHRITIS OF RIGHT HIP PRIMARY OSTEOARTHRITIS OF RIGHT HIP- RIGHT TOTAL HIP ARTHROPLASTY Meds Allergies and Home Medications Allergies Allergy/AdvReac Type Severity Reaction Status Date / Time propofol AdvReac Severe Other (See Verified 03/21/21 07:38 Comment) gabapentin AdvReac Intermediate Made me Verified 03/21/21 07:38 crazy Home Medication Medication Instructions Recorded valacyclovir 500 mg tablet 500 mg PO BID PRN #42 tab 02/19/19 albuterol sulfate 90 mcg/actuation 2 puff IH QID PRN #18 gm 03/02/20 aerosol inhaler levothyroxine 50 mcg tablet 50 mcg PO DAILY #90 tab-cap 06/22/20 clonazepam 0.5 mg tablet 0.5 mg PO .COMPLEX PRN #180 tab 11/24/20 MDD 3 sucralfate 1 gram tablet 1 g PO TID #21 tab 03/08/21 Trelegy Ellipta 1 ea INHALATION DAILY 03/17/21 acetaminophen 1,000 mg PO Q8H PRN PRN #90 cap 03/21/21 aspirin 81 mg PO BID #60 tab 03/21/21 celecoxib 200 mg PO BID #60 cap 03/21/21 oxycodone 5 mg PO Q4H PRN #20 cap 03/21/21 pantoprazole 40 mg PO DAILY #30 tab 03/21/21 Current Visit Medications: Current Medications Generic Name Dose Route Start Last Admin Trade Name Freq PRN Reason Stop Dose Admin Acetaminophen 1,000 mg 03/21/21 06:00 03/21/21 07:52 Acetaminophen 500 Mg Tab PO 03/21/21 16:00 1,000 mg PREOP JUAN CARLOS Administration Acetaminophen 1,000 mg 03/21/21 14:00 03/21/21 14:06 Acetaminophen 500 Mg Tab PO 1,000 mg TID JUAN CARLOS Administration Aspirin 81 mg 03/21/21 20:00 Aspirin E.C. 81 Mg Tabec PO BID JUAN CARLOS Celecoxib 400 mg 03/21/21 06:00 03/21/21 07:53 Celecoxib 200 Mg Cap PO 03/21/21 16:00 400 mg PREOP JUAN CARLOS Administration Celecoxib 200 mg 03/21/21 20:00 Celecoxib 200 Mg Cap PO BID JUAN CARLOS Docusate Sodium 100 mg 03/21/21 07:31 Docusate Sodium 100 Mg Cap PO BID PRN PRN Constipation Tranexamic Acid 1,000 mg/ 60 mls @ 360 mls/hr 03/21/21 06:00 03/21/21 08:56 Sodium Chloride IV 03/21/21 16:00 Infused PREOP JUAN CARLOS Infusion Ringer's Solution 1,000 mls @ 80 mls/hr 03/21/21 06:00 03/21/21 11:57 IV 04/19/21 23:59 80 mls/hr INFUSION JUAN CARLOS Infusion Cefazolin Sodium/Dextrose 2 gm in 50 mls @ 100 mls/hr 03/21/21 06:00 03/21/21 08:58 Ancef Duplex IVPB 03/21/21 23:59 Infused PREOP JUAN CARLOS Infusion Cefazolin Sodium/Dextrose 1 gm in 50 mls @ 100 mls/hr 03/21/21 14:00 Ancef Duplex IVPB 03/22/21 06:29 Q8H JUAN CARLOS Phenylephrine HCl 10 mg/ 251 mls @ 60.24 mls/hr 03/21/21 09:00 03/21/21 11:32 Sodium Chloride IV 0 mcg/min INFUSION JUAN CARLOS 0 mls/hr Titration Protocol 40 MCG/MIN IV Miscellaneous Supplies 1 each 03/21/21 06:00 Iv Access IV 04/19/21 23:59 DIRECTED JUAN CARLOS Ondansetron HCl 4 mg 03/21/21 07:31 Ondansetron 4 Mg/2 Ml Vial IVP Q6H PRN PRN Nausea Oxycodone HCl 0 mg 03/21/21 07:31 03/21/21 14:06 Oxycodone 5 Mg Tab PO 5 mg Q3H PRN PRN Administration Pain Pantoprazole Sodium 40 mg 03/22/21 07:30 Pantoprazole 40 Mg Tabcr PO DAILY@0730 JUAN CARLOS Polyethylene Glycol 17 gm 03/21/21 07:31 Polyethylene Glycol 3350 17 Gm Packet PO BID PRN PRN Constipation Sodium Chloride 0 ml 03/21/21 06:00 03/21/21 10:54 Normal Saline Flush 10 Ml Syr IV 05/26/21 23:59 10 ml PRN PRN Administration Sodium Chloride 0 ml 03/21/21 06:00 Normal Saline 10 Ml Vial IJ 04/19/21 23:59 DIRECTED PRN Sterile Water 0 ml 03/21/21 06:00 Water,Injection,Sterile 10 Ml Vial IJ 04/19/21 23:59 DIRECTED PRN PFSH Active Problems Active Problems: Problem Status Onset Code History of carpal tunnel surgery of right wrist Z98.890 Vaginal atrophy N95.2 Pneumonia J18.9 Left carpal tunnel syndrome G56.02 Polyp of duodenum ~01/28/20 K31.7 Tick bite W57.XXXA Fever R50.9 Tinnitus H93.19 Chronic hip pain M25.559, G89.29 Sensorineural hearing loss (SNHL) of both ears H90.3 Shortness of breath R06.02 Migraine headache without aura G43.009 Primary osteoarthritis of right hip M16.11 Adenocarcinoma of lung 07/13/14 C34.90 Hypertension 09/09/14 I10 Depression Tinnitus 05/13/14 H93.19 Post-concussion headache 08/03/15 G44.309 Hypothyroidism 07/19/17 E03.9 Functional memory problem 04/21/15 R41.3 Abnormal auditory perception 03/02/14 H93.299 ADD (attention deficit disorder) 09/06/16 F98.8 Family history of colon cancer in father Z80.0 Constipation K59.00 Medical History Medical History (Updated 03/17/21 @ 15:11 by Shaw Vazquez) Abnormal auditory perception (03/02/14) NEAL Acute right hip pain 03/12/16 ADD (attention deficit disorder) (09/06/16) Adenocarcinoma of lung (07/13/14) s/p ressection. SARAH Anorexia Cervical lesion 08/24/0909/02 cervical leiomyoma removed at [facility] Constipation Cough 10/08/16 Depression hospitalization w/ ect and medication 12/2018 Depressive disorder (10/24/84) history of kee Family history of colon cancer in father Fracture of radius 10/24/04 left Functional memory problem (04/21/15) Ganglion cyst right knee H/O reduction of closed fracture 11/25/04 left radius Hx of stroke without residual deficits Hypertension (09/09/14) pt. denies this Hypothyroidism (07/19/17) Impetigo 03/02/14 Migraine headache without aura Myalgia Nausea alone Post-concussion headache (08/03/15) Primary osteoarthritis of right hip Injection under fluro: 05/19/19 Rhinitis (09/02/14) Right carpal tunnel syndrome S/P ECTR Smoker 11/25/84 Sprain of right little finger Syncope Tinnitus (05/13/14) Unintentional weight loss Surgical History Surgical History Appendectomy section Colonoscopy - IV Sedation (09/19/16) Last Colonoscopy 08/12- hyperplastic polyp EXCISION OF GANGLION CYST (09/13/15) DR. PATEL; RIGHT KNEE Excision of left distal clavicle (10/17/16) Dr. Patel Fracture, Closed Treatment (~2004) left radius H/O section H/O excision of ganglion cyst 09/13/15 History of esophagogastroduodenoscopy (EGD) (~07/2018) Hx of appendectomy Hx of breast reduction, elective 11/25/89 Reduction mammoplasty (~1989) Tobacco Smoking/Tobacco Use Status: Former Tobacco Use Passive smoking exposure: Yes Alcohol Alcohol Intake: current Alcohol intake frequency: a few times a week Alcohol type: beer, wine and hard liquor Substance Use Substance use: Never Substance use type: does not use Vital Signs and Lab Results Vital Signs Most Recent Vital Signs in EMR: Most Recent Vital Signs Temp Pulse Resp BP Pulse Ox 36.6 C 58 L 18 119/62 97 03/21/21 14:09 03/21/21 14:09 03/21/21 14:09 03/21/21 14:09 03/21/21 14:09 Point of Care Results Nursing Point of Care Results: No Data to Display Lab Results Blood Type / Crossmatch: Patient ABO/Rh A Positive 03/20/21 09:38 03/20/21 Antibody Screen Negative 03/20/21 09:38 03/20/21 Complete Blood Count: White Blood Count 8.38 10^3/uL (4.4-10.8) 03/20/21 09:38 03/20/21 Red Blood Count 4.41 10^6/uL (3.93-5.22) 03/20/21 09:38 03/20/21 Hemoglobin 13.9 g/dL (11.2-15.7) 03/20/21 09:38 03/20/21 Hematocrit 42.4 % (36.0-46.0) 03/20/21 09:38 03/20/21 Platelet Count 257 10^3/uL (130-400) 03/20/21 09:38 03/20/21 Complete Metabolic Panel: Sodium Level 144 mmol/L (136-145) 03/20/21 09:38 03/20/21 Potassium Level 4.1 mmol/L (3.5-5.1) 03/20/21 09:38 03/20/21 Chloride Level 106 mmol/L (98-107) 03/20/21 09:38 03/20/21 Carbon Dioxide Level 28.3 mmol/L (21.0-32.0) 03/20/21 09:38 03/20/21 Blood Urea Nitrogen 15 mg/dL (7-18) 03/20/21 09:38 03/20/21 Creatinine 0.6 mg/dL (0.55-1.02) 03/20/21 09:38 03/20/21 Calcium Level 9.4 mg/dL (8.5-10.1) 03/20/21 09:38 03/20/21 Albumin 3.8 g/dL (3.4-5.0) 05/27/18 12:22 05/27/18 Glucose Level 130 mg/dL (74-106) H 03/20/21 09:38 03/20/21 C-Reactive Protein < 0.05 mg/dL (0.0-0.3) 05/27/18 12:22 05/27/18 Liver Function Panel: Alanine Aminotransferase (ALT/SGPT) 18 U/L (12-78) 05/27/18 12:22 05/27/18 Aspartate Amino Transf (AST/SGOT) 12 U/L (15-37) L 05/27/18 12:22 05/27/18 Coagulation Panel: No Data to Display Cardiac Panel: No Data to Display Arterial Blood Gas: No Data to Display Venous Blood Gas: No Data to Display Pancreas Panel: Lipase 81 U/L (73-393) 05/12/18 15:45 06/18/18 Thyroid Panel: Thyroid Stimulating Hormone (TSH) 1.09 uIU/mL (0.36-3.74) 11/30/20 09:58 11/30/20 Infectious Disease: Coronavirus (COVID-19)(PCR) Negative (Negative) 03/20/21 09:48 03/20/21 Coronavirus 2019 Source Nasal/nares 03/20/21 09:48 03/20/21 Blood Cultures: No Data to Display Toxicology Panel: No Data to Display Panel: No Data to Display Imaging and Studies Imaging and Studies EKG Summary:: 2019: Sinus paloma, left atrial enlargement. Echocardiogram Summary:: 09/2014:LVEF 60-65%, mild MR, PAS 25-30%. Pulmonary Function Test Summary:: 10/2020: Mild obstructive airway dsease with no bronchodilator response. mild reduction in diffusion capacity. Other Study Summary:: 2013 MRA of the neck: no evidence of significant stenosis or aneurysm. Anesthesia Assessment and Plan Anesthesia History Personal History: No History of Anesthesia Complications Family History: No Family History of Anesthesia Complications and Family History Unknown Airway Exam Known Difficult Airway: No Mallampati Class: 3 Mouth Opening: Narrow (< 3cm) Thyromental Distance: Less than 3 cm Neck Range of Motion: Full ROM Neck Circumference: Normal Teeth Condition: Normal Dentition
== END 2021-03-21 14:40 | disposition home or self-care (01) ==
PROVIDERS: PCP Family Medicine; Visit Provider Student in an Organized Health Care Education/Training Program
PROC: (CPT 27130; principal; 2021-03-21 08:45)
DX: M16.11 Unilateral primary osteoarthritis, right hip (principal); M25.551 Pain in right hip; Z96.641 Presence of right artificial hip joint; G89.18 Other acute postprocedural pain; F41.9 Anxiety disorder, unspecified
CPT/HCPCS: 27130; 20985; C1776; 97162; 97530; 73501; J0690; J1100; J1885; J2250; J2370; J2405

== ENCOUNTER 2021-04-06 15:22 | Outpatient (CLI) | payer MEDICARE, BC, SELFPAY ==
--- NOTE | 2021-04-06 09:09 | DI.RAD_ITS ---
Exam(s) XR HIP RT COMPLETE AP PELVIS EXAM: XR HIP RT COMPLETE AP PELVIS CLINICAL HISTORY: 1st post op R CHANDLER. TECHNIQUE: 2D digital imaging was performed. COMPARISON: CR XR PELVIS AP from 03/15/2021 FINDINGS: There has been interval placement of a right hip prosthesis. Components of the prosthesis are in sat isfactory position alignment. No fracture or loosening evident. Mild degenerative changes noted in the opposite hip. IMPRESSION: DATA REPOSITORY: RADIATION DOSE DELIVERED:
== END 2021-04-06 15:23 | disposition home or self-care (01) ==
LOC: DIORS 15:23
PROVIDERS: PCP Family Medicine; Referring Provider Family Medicine; Visit Provider Physician Assistant
DX: Z47.1 Aftercare following joint replacement surgery (principal); Z96.641 Presence of right artificial hip joint; M16.12 Unilateral primary osteoarthritis, left hip
CPT/HCPCS: 73502

== ENCOUNTER → 2021-04-17 13:40 | Outpatient (BNVA) | payer MEDICARE, BC, SELFPAY | PROVIDERS: PCP Family Medicine; Referring Provider Family Medicine; Visit Provider Student in an Organized Health Care Education/Training Program | DX: Z47.1 Aftercare following joint replacement surgery (principal); Z96.641 Presence of right artificial hip joint; M76.891 Other specified enthesopathies of right lower limb, excluding foot ==

== ENCOUNTER 2021-05-01 09:29 | Outpatient (CLI) | payer MEDICARE, BC, SELFPAY ==
--- NOTE | 2021-05-01 09:15 | RT.EKG_ITS ---
APPROVED REPORT Exam: Resting ECG Reason for Exam: Near-syncope Patient Location: O HR:76 bpm ECG Measurements Heart Rate 76 AXIS WY 145 P 65 QRSd 84 QRS 45 QT 367 T 49 QTc 413 Conclusion Sinus rhythm...normal P axis, V-rate 60- 99 Probable left atrial enlargement...P >50mS, <-0.10mV V1 Borderline ST depression, diffuse leads...ST <-0.07mV, ant/lat/inf
== END 2021-05-01 09:30 | disposition home or self-care (01) ==
PROVIDERS: PCP Family Medicine; Visit Provider Family Medicine
DX: R55 Syncope and collapse (principal)
CPT/HCPCS: 93010

== ENCOUNTER 2021-05-02 04:03 | Outpatient (CLI) | payer MEDICARE, BC, SELFPAY ==
[2021-05-02 13:42] LABS: HCT 40.5 % (36.0-46.0); HGB 13.2 g/dL (11.2-15.7); MCH 31.4 pg (27.0-33.0); MCHC 32.6 % (32.0-36.0); MCV 96.4 fL (80-95); MPV 9.2 fL (8.0-11.0); Platelet Count 256 10^3/uL (130-400); RDW 13.5 % (11.7-14.6); RDW-SD 48.6 fL; WBC 9.15 10^3/uL (4.4-10.8)
[2021-05-02 15:26] LABS: ALT 26 U/L (14-59); AST 16 U/L (15-37); Alkaline Phosphatase 93 U/L (46-116); Anion Gap 10.5 mmol/L (3-11); BUN 20 mg/dL (7-18); Bilirubin, Total 0.2 mg/dL (0.2-1.0); CO2 26.5 mmol/L (21.0-32.0); CREATININE 0.6 mg/dL (0.55-1.02); Calcium 9.5 mg/dL (8.5-10.1); Chloride 105 mmol/L (98-107); Glucose 101 mg/dL (74-106); Potassium 3.9 mmol/L (3.5-5.1); Sodium 142 mmol/L (136-145); TSH (W/Ref FT4) 0.93 uIU/mL (0.36-3.74)
== END 2021-05-02 04:04 | disposition home or self-care (01) ==
LOC: LBO 04:03
PROVIDERS: PCP Family Medicine; Visit Provider Family Medicine
DX: R55 Syncope and collapse (principal); I10 Essential (primary) hypertension
CPT/HCPCS: 36415; 80053; 85027; 84443

== ENCOUNTER → 2021-05-04 09:56 | Outpatient (BNVA) | payer MEDICARE, BC, SELFPAY | PROVIDERS: PCP Family Medicine; Referring Provider Family Medicine; Visit Provider Physician Assistant | DX: Z47.1 Aftercare following joint replacement surgery (principal); Z96.641 Presence of right artificial hip joint ==

== ENCOUNTER 2021-05-16 01:10 | Outpatient (CLI) | payer MEDICARE, BC, SELFPAY ==
--- NOTE | 2021-05-16 06:45 | DI.NM_ITS ---
APPROVED REPORT Exam: Exercise Treadmill Patient Location: Out-Patient Room/Bed: Stress Nurse: Zoe Simon RN Ordering Provider:YULY BURNS, Contact Number: [phone] BMI: 24.02 Baseline Rhythm: Sinus Bradycardia Indications: Abnormal EKG, Syncope, HTN Medical History Medical History: Syncope, Depression, SOB, Lung adenocarcinoma (s/p SARAH resection), Tinnitus, Hypothy roidism Cardiac Medications: Aspirin, Albuterol sulfate inhaler Allergies: Gabapentin, Propofol Cardiac Risk Factors: HTN, FHX of CAD, Asthma, Smoking (former) Previous Cardiac Procedures: None Pretest Chest Pain Characteristics: No chest pain Exercise History: Physically active Physical Disabilities: Hip replacement 8 weeks ago Lung Sounds: Left sided wheezing present. Heart Sounds: Regular Stress Test Details Test: Exercise stress testing was performed using a Mo protocol. Nuclear Acquisition: Rest Tc-99m/Stress Tc-99m 1 day Rest Isotope: Tc-99m Sestamibi. Dose: 9.6 Date: 05/16/2021 Injection Time: 0815 Stress Isotope: Tc-99m Sestamibi. Dose: 29.4 Date: 05/16/2021 Injection Time: 1120 HR Resting HR Supine: 56 bpm Max Heart Rate (APMHR): 152 bpm Resting HR Standin bpm Target HR (85% APMHR): 129 bpm Max HR Achieved: 148 bpm % of APMHR: 97 Recovery HR: 63 bpm HR response to stress: Normal HR response to stress BP Resting BP Supine: 144/78 mmHg Resting BP Standin/80 mmHg Max BP: 160/78 mmHg Recovery BP: 136/78 mmHg BP response to stress: Blunted blood pressure response to stress. ECG Resting ECG: Sinus Bradycardia Ectopy: None Stress ECG: Sinus Tachycardia ST Change: Downsloping ST depression Lead(s): II, III, aVF Stage: [address] Deviation: 1 mm Arrhythmia: PVCs Recovery ECG: Sinus Rhythm Recovery ST Change: Horizontal ST depression Lead(s): II, III, aVF Recovery ST Deviation: 0.5 mm Recovery Arrhythmia: None Clinical Reason for Termination: Fatigue Stress Symptoms: Dyspnea Exercise duration: 9 min35 sec Highest Stage Reached: Stage 4: 4.2 mph at 16% grade. Exercise capacity: 11.1 METs Rate Pressure Product: 19748 Stress ECG Conclusion 1. The resting electrocardiogram showed voltage for left ventricular hypertrophy 2. Patient exercised on the Mo protocol and completed a workload of 11.1 METS and 97% of predicted heart rate for age 3. Electrocardiographically the test was consistent with myocardial ischemia in the inferior and ante rolateral leads 4. Several PVCs were noted Stress Test Summary STAGE Time (mins) Speed (mph) Grade (%) HR BP SYMPTOMS METS Supine 56 144/78 Standing 67 150/80 1 3 1.7 10 106 148/80 SpO2 93% 4.6 2 6 2.5 12 115 138/88 SpO2 94%; moderate dyspnea 7 3 9 3.4 14 140 152/80 SpO2 94% 10.2 1 min recovery 113 160/78 moderate dyspnea/dizziness 3 min recovery 83 150/74 symptoms resolved 6 min recovery 63 136/78 MPI Conclusion Normal myocardial perfusion without evidence of ischemia or prior infarction EF 60% Radiologist Interpretation Radiologist agrees with Franchise Broker's Interpretation. Radiologist Interpretation by: Reji Olivera MD Interpretation Date/Time: 05/16/2021 14:41:21
--- NOTE | 2021-05-16 08:39 | DI.US_ITS ---
APPROVED REPORT EXAM: Comprehensive 2D, Doppler, and color-flow Echocardiogram Patient Location: Out-Patient Indications: Syncope, EKG changes, HTN Other Information Study Quality: Adequate Conclusion Normal left ventricular wall thickness and chamber size. Estimated ejection fraction is 50 to 55%. There is very mild global hypokinesis Normal right ventricular size and systolic function Both atria are normal in size Mildly sclerotic trileaflet aortic valve without stenosis or regurgitation Trace to mild mitral and tricuspid regurgitation. Trace pulmonic regurgitation. Estimated right ventricular systolic pressure is normal at 24 mmHg Wall motion Left Ventricle The left ventricle is normal size. Left ventricular systolic function is borderline. There is normal left ventricular wall thickness. There is mild global hypokinesis of the left ventricle. There is no ventricular septal defect visualized. LVEF is 50-55%. Right Ventricle The right ventricle is normal size. The right ventricular systolic function is normal. The RVSP is 24 .1 mmHg. Atria The left atrium size is normal. The right atrium size is normal. The interatrial septum is intact wit h no evidence for an atrial septal defect. Aortic Valve The Aortic valve is mildly sclerotic. Aortic valve is trileaflet. There is no aortic valvular stenosi s. No aortic regurgitation is present. Mitral Valve The mitral valve is normal in structure. No evidence of mitral valve stenosis. Trace to mild mitral r egurgitation. Tricuspid Valve The tricuspid valve is normal in structure. There is no tricuspid valve stenosis. Trace to mild tricu spid regurgitation. Pulmonic Valve The pulmonary valve is normal in structure. There is no pulmonic valvular stenosis. Trace pulmonic re gurgitation. Great Vessels The aortic root is normal in size. The ascending aorta is mildly dilated. Aortic arch is normal in ca liber. IVC is normal in size and collapses >50% with inspiration. Pericardium There is no pericardial effusion. 2D Dimensions IVSD d PLAX 1.02 cm F: 0.6-1.0 LV Vol A2C d MOD 143.7 mL LVPW d PLAX 1.00 cm F: 0.6 - 1.0 LV Vol A4C d MOD 104.0 mL LVID d PLAX 5.09 cm F: 3.8 - 5.2 LA vol/ BSA A2C s A-L 15.1 mL/m2 LVDs 3.75 cm F: 2.2 - 3.5 LA Area A2C s MOD 12.03 cm2 Ao Root d 3.25 cm F: 2.7 - 3.3 LV EF A4C MOD 52.3 % RA Area A4C 12.98 cm2 LV EF A2C MOD 53.2 % RA Vol/ BSA A4C s A-L 20.4 mL/m2 LV EF Biplane MOD 52.0 % Ao Asc Diam d 3.65 cm F: 2.3 - 3.1 SV 64.75 mL LV EF Teichholz 51.2 % SV Index 38.76 mL/m2 LVEF (Martinez's) 51.95 % F: 54 - 74 LV Volume 99.62 mL F: 46 - 106 LV Volume Index 59.65 mL/m2 F: 29 - 61 LV Vol Biplane MOD 124.6 mL FS 26.20 % M-Mode TAPSE 2.06 cm (M/F) >1.7 LV Diastology MV E' medial 0.090 (>0.07 m/s) E/A Ratio 0.9 LV E/e MED 7.60 (<14) MV E Vmax 0.69 (0.4-1.3 m/s) MV E' lateral 0.084 (>0.1 m/s) MV A Vmax 0.80 (0.4-1.3 m/s) LV E/e LAT 8.15 (<14) MV E/A Ratio 0.83 MV E/E' medial 7.62 MV E/E' lateral 8.17 Aortic Valve LVOT Area 4.04 cm2 AoV Area Vmax 3.10 cm2 LVOT Vmax 1.06 m/s AoV Area/ BSA (Vmax) 1.86 cm2/m2 LVOT Mean Rik. 0.64 m/s AMADA Mean Rik. 3.14 cm2 LVOT Peak Grad 4.5 mmHg AMADA Mean Rik. Index 1.88 cm2/m2 LVOT Mean Grad 2.0 mmHg LVOT VTI 0.235 m LVOT Diam s 2.25 cm AoV Vmax 1.39 m/s Velocity Ratio 0.76 AoV Mean Rik. 0.83 m/s AoV Peak Grad 7.7 mmHg LVOT SV 94.97 mL AoV Mean Grad 3.3 mmHg AoV VTI 0.248 m AoV Area VTI 3.83 cm2 AoV Area/ BSA (VTI) 2.29 cm/m2 Mitral Valve MV DT 232 (160-240 msec) MV PHT 67 msec MV Area PHT 3.27 cm2 MV VTI 0.264 m MV VTI Annulus 0.276 m MV Area VTI 3.76 (4.0-6.0 cm2) Pulmonary Valve PV Vmax 0.90 (0.5-1.5 m/s) RVOT Peak Gr. 2.02 mmHg PV Peak Grad 3.3 mmHg RVOT Mean Gr. 1.05 mmHg PV Mean Grad 1.7 mmHg RVOT VTI 0.153 m PV VTI 0.201 m RVOT Vmax 0.71 m/s Tricuspid Valve TR Peak Grad 21.1 mmHg TR Vmax 2.30 m/s RA Pressure 3.00 mmHg RVSP (TR) 24.1 mmHg
--- NOTE | 2021-06-09 08:50 | ZIOP_ITS ---
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 ?The patient was in normal sinus rhythm for the majority the recording with an average heart rate of 85 bpm. ?There were 8 runs of supraventricular tachycardia with the longest lasting 11 beats. None of these were symptomatic. There were rare PACs. ?There were no episodes of ventricular tachycardia and rare PVCs. ?There are no episodes of atrial fibrillation, no pauses greater than 3 seconds and no evidence of high degree heart block. ?There were 4 patient triggered events all associated with sinus rhythm and sinus tachycardia.
== END 2021-05-16 01:30 ==
PROVIDERS: PCP Family Medicine; Visit Provider Family Medicine
DX: I10 Essential (primary) hypertension (principal); R94.31 Abnormal electrocardiogram [ECG] [EKG]; R00.2 Palpitations; J45.909 Unspecified asthma, uncomplicated; Z87.891 Personal history of nicotine dependence; Z82.49 Family history of ischemic heart disease and other diseases of the circulatory system; I77.810 Thoracic aortic ectasia
CPT/HCPCS: 78452; 93016; 93018; 93306; 93017

== ENCOUNTER 2021-05-23 08:23 | Outpatient (CLI) | payer MEDICARE, BC, SELFPAY ==
--- NOTE | 2021-05-23 08:15 | RT.EKG_ITS ---
APPROVED REPORT Exam: Resting ECG Reason for Exam: evaluation, monitoring Patient Location: O HR:88 bpm ECG Measurements Heart Rate 88 AXIS TN 143 P 70 QRSd 96 QRS 46 QT 362 T 25 QTc 438 Conclusion Sinus rhythm...normal P axis, V-rate 50- 99 Left atrial enlargement...P, P'>60mS, <-0.15mV V1 Minimal ST depression, diffuse leads...ST <-0.03mV, ant/lat/inf Baseline wander in lead(s) V6
== END 2021-05-23 08:24 | disposition home or self-care (01) ==
LOC: DI.CARD 08:24
PROVIDERS: PCP Family Medicine; Visit Provider Internal Medicine Cardiovascular Disease
DX: R94.39 Abnormal result of other cardiovascular function study (principal)
CPT/HCPCS: 93010

== ENCOUNTER → 2021-05-23 13:46 | Outpatient (BNVA) | payer MEDICARE, BC, SELFPAY | PROVIDERS: PCP Family Medicine; Referring Provider Family Medicine; Visit Provider Internal Medicine Cardiovascular Disease | DX: R55 Syncope and collapse (principal); R94.39 Abnormal result of other cardiovascular function study; R94.31 Abnormal electrocardiogram [ECG] [EKG] | CPT/HCPCS: 93005; 99204; 99215 ==

== ENCOUNTER 2021-05-24 09:37 | Outpatient (CLI) | payer MEDICARE, BC, SELFPAY | END 2021-05-24 09:38 | disposition home or self-care (01) | LOC: RT 09:38 | PROVIDERS: PCP Family Medicine; Visit Provider Internal Medicine Cardiovascular Disease | DX: R53.83 Other fatigue (principal) | CPT/HCPCS: 93246 ==

== ENCOUNTER 2021-06-09 08:50 | Outpatient (CLI) | payer MEDICARE, BC, SELFPAY | END 2021-06-09 08:51 | LOC: CARDO 07-03 16:20 | PROVIDERS: PCP Family Medicine; Referring Provider Family Medicine; Visit Provider Internal Medicine Cardiovascular Disease | DX: R00.2 Palpitations (principal); R94.39 Abnormal result of other cardiovascular function study; I47.1 Supraventricular tachycardia | CPT/HCPCS: 93248 ==

== ENCOUNTER → 2021-06-19 13:28 | Outpatient (BNVA) | payer MEDICARE, BC, SELFPAY | PROVIDERS: PCP Family Medicine; Referring Provider Family Medicine; Visit Provider Internal Medicine Cardiovascular Disease | DX: R94.39 Abnormal result of other cardiovascular function study (principal); R55 Syncope and collapse; R93.1 Abnormal findings on diagnostic imaging of heart and coronary circulation; R53.83 Other fatigue | CPT/HCPCS: 99214; 99213 ==

== ENCOUNTER → 2021-07-25 13:49 | Outpatient (BNVA) | payer MEDICARE, BC, SELFPAY | PROVIDERS: PCP Family Medicine; Referring Provider Family Medicine; Visit Provider Internal Medicine Cardiovascular Disease | DX: I25.10 Atherosclerotic heart disease of native coronary artery without angina pectoris (principal); R94.31 Abnormal electrocardiogram [ECG] [EKG]; R94.39 Abnormal result of other cardiovascular function study; I10 Essential (primary) hypertension | CPT/HCPCS: 99214; 99213 ==

== ENCOUNTER 2021-08-07 04:00 | Outpatient (CLI) | payer MEDICARE, BC, SELFPAY ==
[2021-08-07 12:56] LABS: ESR 14 mm/hr (0-30)
[2021-08-07 13:19] LABS: TSH (W/Ref FT4) 0.69 uIU/mL (0.36-3.74)
[2021-08-08 11:15] LABS: Lyme Ab w Rflx to Lyme Confirm Negative (Negative)
[2021-08-09 19:30] LABS: Anaplasma phagocytophilum Negative (Negative); B. miyamotoi PCR Negative (Negative); Babesia divergens/MO-1 Negative (Negative); Babesia duncani Negative (Negative); Babesia microti Negative (Negative); Ehrlichia chaffeensis Negative (Negative); Ehrlichia ewingii/canis Negative (Negative); Ehrlichia muris eauclairensis Negative (Negative)
== END 2021-08-07 04:01 | disposition home or self-care (01) ==
LOC: LOS 04:01
PROVIDERS: PCP Family Medicine; Visit Provider Family Medicine
DX: R53.1 Weakness (principal)
CPT/HCPCS: 36415; 85652; 87798; 84443; 86618

== ENCOUNTER 2021-09-15 01:20 | Outpatient (CLI) | payer MEDICARE, BC, SELFPAY ==
--- NOTE | 2021-09-15 07:15 | DI.MAMMO_ITS ---
Exam(s) MAMMO SCREENING EXAM: MAMMO SCREENING CLINICAL HISTORY: screening,z12.39 TECHNIQUE: Bilateral full field digital CC and MLO mammographic images were obtained with 3D tomosyn thesis and utilizing computer aided detection (CAD). COMPARISON: Available for comparison. FINDINGS: Masses/Architectural Distortion: None seen. Microcalcifications: No suspicious pleomorphic-type are seen. Skin Thickening/Nipple Retraction: None. IMPRESSION: 1. No significant interval change with no specific features of malignancy noted. 2. Unless there is more urgent need, screening mammography is recommended, as per [employer] guidelines. BI-RADS Category 1 - Negative Breast Density - Category B - Scattered areas of fibroglandular density Breast density category C or D implies that the patient has dense breast tissue. Dense breast tissue is very common and is not abnormal but dense breast tissue can make it harder to find cancer on a ma mmogram. Also, dense breast tissue may increase their breast cancer risk. This information about the result of the mammogram report was provided to the patient to raise their awareness. Use this report when you speak with the patient about their risks for breast cancer, which includes their family hist ory. At that time, you may recommend for more screening tests (Ultrasound or MRI) as they might be us eful based on their risk. A negative radiographic report should not delay biopsy if a dominant or clinically suspicious mass is present. Up to ten percent of cancers are not identified on mammography. A negative report may reinforce clinical impression. Adenosis and dense breasts may obscure an underlying neoplasm. False positive reports average 6 to 10%. Patient will receive a letter notifying them of these results.
== END 2021-09-15 01:40 ==
PROVIDERS: PCP Family Medicine; Visit Provider Family Medicine
DX: Z12.31 Encounter for screening mammogram for malignant neoplasm of breast (principal)
CPT/HCPCS: 77063; 77067

== ENCOUNTER 2021-12-07 04:28 | Outpatient (CLI) | payer MEDICARE, BC, SELFPAY ==
[2021-12-07 14:08] LABS: TSH (W/Ref FT4) 2.72 uIU/mL (0.36-3.74)
== END 2021-12-07 04:29 | disposition home or self-care (01) ==
LOC: LBO 04:28
PROVIDERS: PCP Family Medicine; Visit Provider Family Medicine
DX: E03.9 Hypothyroidism, unspecified (principal)
CPT/HCPCS: 36415; 84443

== ENCOUNTER 2021-12-15 11:24 | Outpatient (CLI) | payer MEDICARE, BC, SELFPAY ==
--- NOTE | 2021-12-15 10:30 | DI.RAD_ITS ---
Exam(s) XR LUMBAR SPINE COMPLETE EXAM: XR LUMBAR SPINE COMPLETE CLINICAL HISTORY: left lower extremity pain; s/p right CHANDLER. TECHNIQUE: 2D digital imaging was performed. COMPARISON: No exams were available for comparison FINDINGS: BONES: Sacralization of L5. No fracture or destructive lesion. Vertebral bodies are unremarkable. Fa cet degenerative changes are seen greatest at L3-4 and L4-5. DISKS: Intervertebral disc spaces are maintained. Minimal endplate osteophytes. ALIGNMENT: Lumbar spinal alignment is within normal limits. SOFT TISSUE: Aortic calcification. IMPRESSION: Degenerative changes, greatest of the facet joints at L3-4 and L4-5. DATA REPOSITORY: RADIATION DOSE DELIVERED:
== END 2021-12-15 11:25 | disposition home or self-care (01) ==
LOC: DIORS 11:25
PROVIDERS: PCP Family Medicine; Referring Provider Family Medicine; Visit Provider Student in an Organized Health Care Education/Training Program
DX: Z96.641 Presence of right artificial hip joint (principal); M16.12 Unilateral primary osteoarthritis, left hip; M79.605 Pain in left leg; R53.1 Weakness; M47.896 Other spondylosis, lumbar region
CPT/HCPCS: 99213; 72110

== ENCOUNTER 2022-02-06 19:25 | Outpatient (REF) | payer MEDICARE, BC, SELFPAY ==
[2022-02-07 11:25] LABS: COVID-19 RT-PCR UVMMC Result Negative (Negative)
== END 2022-02-06 19:26 | disposition home or self-care (01) ==
LOC: LBN 19:25
PROVIDERS: PCP Family Medicine; Visit Provider Family Medicine
DX: Z20.822 Contact with and (suspected) exposure to COVID-19 (principal)
CPT/HCPCS: U0003; U0005

== ENCOUNTER 2022-02-28 01:37 | Outpatient (CLI) | payer MEDICARE, BC, SELFPAY ==
--- NOTE | 2022-02-28 15:12 | DI.CT_ITS ---
Exam(s) CT SINUS WO EXAM: CT SINUS WO CLINICAL HISTORY: chronic sinus pain,j34.89. TECHNIQUE: Imaging Protocol: Axial computed tomography images with coronal and sagittal reformatted images were created and reviewed. No IV Contrast COMPARISON: CT HEAD AND CSPINE W/O CONTRAST from 08/02/2015 FINDINGS: MAXILLARY SINUSES: Is mild mucosal thickening in the floor both maxillary sinuses lateral aspect, not associated with fl uid levels nor bone dehiscence. OSTIOMEATAL UNITS: Patent bilaterally ETHMOIDAL AIR CELLS: Well aerated. No mucosal thickening nor fluid levels. 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 SPHENOID SINUSES: Well aerated. No mucosal thickening nor fluid levels. FRONTAL SINUSES: Well aerated. No mucosal thickening nor fluid levels. NASAL SEPTUM AND TURBINATES:Nasal septum is midline with no evidence of significant nasal septal spur . There is no evidence of preston bullosa. There is sclerotic bone lesion posterior left-sided ethmoidal air cells which is unchanged from 2015 has appearance osteoma IMPRESSION: 1. Mild benign-appearing mucosal thickening in the maxillary sinuses, not associated fluid levels, o bstruction of the ostiomeatal units, nor bone dehiscence. 2. 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 This has not increased in size from brain CT scan of July 2015 RADIATION DOSE DELIVERED: 114.29mGy.cm Total DLP DATA REPOSITORY: All CT scans at this facility are submitted to the National Radiology Data Registry (NRDR) Dose Index Registry (DIR) with the [employer] ([employer]). RADIATION OPTIMIZATION: All CT scans at this facility use at least one of these dose optimization te chniques: automated exposure control; mA and/or kV adjustment per patient size (includes targeted exa ms where dose is matched to clinical indication); or iterative reconstruction.
== END 2022-02-28 01:57 ==
PROVIDERS: PCP Family Medicine; Visit Provider Family Medicine
DX: J34.89 Other specified disorders of nose and nasal sinuses (principal); J32.0 Chronic maxillary sinusitis
CPT/HCPCS: 70486

== ENCOUNTER → 2022-03-26 09:58 | Outpatient (BNVA) | payer MEDICARE, BC, SELFPAY | PROVIDERS: PCP Family Medicine; Visit Provider Student in an Organized Health Care Education/Training Program | DX: R69 Illness, unspecified (principal) ==

== ENCOUNTER 2022-03-26 10:02 | Outpatient (CLI) | payer MEDICARE, BC, SELFPAY ==
--- NOTE | 2022-03-26 09:45 | DI.RAD_ITS ---
Exam(s) XR HIP RT AP LAT ONLY EXAM: XR HIP RT AP LAT ONLY INDICATION: annual f/u R CHANDLER. COMPARISON: CR XR HIP RT COMPLETE AP PELVIS from 04/06/2021 TECHNIQUE: 2D digital imaging was performed. Two views. FINDINGS: There has been no change in the alignment of the right hip prosthesis or appearance of the surroundin g bone. DATA REPOSITORY: RADIATION DOSE DELIVERED:
== END 2022-03-26 10:03 | disposition home or self-care (01) ==
LOC: DIORS 10:02
PROVIDERS: PCP Family Medicine; Referring Provider Family Medicine; Visit Provider Student in an Organized Health Care Education/Training Program
DX: Z96.641 Presence of right artificial hip joint (principal)
CPT/HCPCS: 99212; 99213; 73502

== ENCOUNTER 2022-04-25 12:23 | Outpatient (CLI) | payer MEDICARE, BC, SELFPAY ==
--- NOTE | 2022-04-25 07:45 | DI.RAD_ITS ---
Exam(s) XR STANDING ALIGNMENT EXAM: XR STANDING ALIGNMENT CLINICAL HISTORY: HISTORY OF R CHANDLER TECHNIQUE: COMPARISON: No exams were available for comparison FINDINGS: AP views of the lower extremities were obtained for standing alignment protocol. There is a total hip joint replacement position on the right. There are moderate degenerative change s of the left hip. There are slight degenerative changes of both knees. IMPRESSION: RADIATION DOSE DELIVERED: Total DLP
== END 2022-04-25 12:24 | disposition home or self-care (01) ==
LOC: DIORS 12:24
PROVIDERS: PCP Family Medicine; Referring Provider Family Medicine; Visit Provider Student in an Organized Health Care Education/Training Program
DX: Z96.641 Presence of right artificial hip joint (principal); M16.12 Unilateral primary osteoarthritis, left hip
CPT/HCPCS: 77073

== ENCOUNTER → 2022-05-09 01:34 | Outpatient (CLI) | payer MEDICARE, BC, SELFPAY ==
--- NOTE | 2022-05-09 06:30 | DI.RAD_ITS ---
Exam(s) XR CERVICAL SPINE COMP 4-5V EXAM: XR CERVICAL SPINE COMP 4-5V CLINICAL HISTORY: headache, neck pain,r51.9. TECHNIQUE: 2D digital imaging was performed. COMPARISON: No exams were available for comparison FINDINGS: Five views of the cervical spine No evidence of fracture or listhesis. There is some straightening of the cervical curvature noted. There is chronic-type degenerative disc disease at C5-6 with moderate disc space narrowing at this le varghese and anterior osteophytes and bilateral Luschka joint osteophytes evident, as best seen on the obl ique views. Milder narrowing at C6-7 level noted. Also C2-3. There is multilevel facet arthropathy . No cervical ribs evident. No osseous lesions. IMPRESSION: Degenerative disc disease as described above. Straightening of the cervical curvature. DATA REPOSITORY: RADIATION DOSE DELIVERED:
--- NOTE | 2022-05-09 06:30 | DI.CT_ITS ---
Exam(s) CT HEAD WO EXAM: CT HEAD WO CLINICAL HISTORY: severe headache, neck pain, r51.9. TECHNIQUE: Imaging Protocol: Axial computed tomography images with coronal and sagittal reformatted images were created and reviewed COMPARISON: CT CT SINUS WO from 02/28/2022 FINDINGS: There are no skull fractures nor fluid in the visualized paranasal sinuses. Some mucosal thickening in the lateral aspect of the right maxillary sinuses again noted as well as minimal mucosal thickeni ng posteriorly in both maxillary sinuses. No fluid levels in the visualized paranasal sinuses. Smal l osteoma is again noted in a left-sided ethmoidal air cell located posteriorly, unchanged There is no evidence of intracranial hemorrhage, mass effect, or shift of midline structures. There are no extra-axial fluid collections. The ventricles are not enlarged or shifted and there is no blo od within the ventricular system nor within the basal cisterns. Some calcification is noted within the vertebral arteries at the skull base as well as within the int racavernous internal carotid arteries. There is no asymmetric hyperdense middle cerebral artery evid ent. IMPRESSION: No acute intracranial findings on this noninfused CT scan of the brain. Other findings as above. RADIATION DOSE DELIVERED: 643.93mGy.cm Total DLP DATA REPOSITORY: All CT scans at this facility are submitted to the National Radiology Data Registry (NRDR) Dose Index Registry (DIR) with the [employer] (ACR). RADIATION OPTIMIZATION: All CT scans at this facility use at least one of these dose optimization te chniques: automated exposure control; mA and/or kV adjustment per patient size (includes targeted exa ms where dose is matched to clinical indication); or iterative reconstruction.
== END ==
PROVIDERS: PCP Family Medicine; Visit Provider Family Medicine
DX: R51.9 Headache, unspecified (principal); M50.322 Other cervical disc degeneration at C5-C6 level
CPT/HCPCS: 36415; 80053; 85027; 85652; 70450; 72050; 81003; 84443

== ENCOUNTER 2022-05-09 11:47 | Outpatient (CLI) | payer MEDICARE, BC, SELFPAY ==
[2022-05-09 09:06] LABS: Bilirubin Negative (Negative); Blood Negative (Negative); Clarity Clear (Clear); Glucose Negative (Negative); Ketones Negative (Negative); Leukocyte Esterase Negative (Negative); Nitrite Negative (Negative); Urobilinogen 0.2 EU/dL (Up TO 0.2)
[2022-05-09 09:13] LABS: ESR 3 mm/hr (0-30)
[2022-05-09 09:14] LABS: HCT 42.6 % (36.0-46.0); HGB 13.9 g/dL (11.2-15.7); MCHC 32.6 % (32.0-36.0); MCV 98 fL (80-95); MPV 9.2 fL (8.0-11.0); Platelet Count 274 10^3/uL (130-400); RBC 4.35 10^6/uL (3.93-5.22); RDW 14.6 % (11.7-14.6); RDW-SD 53.2 fL; WBC 7.59 10^3/uL (4.4-10.8)
[2022-05-09 09:27] LABS: ALT 18 U/L (14-59); AST 16 U/L (15-37); Albumin 4.1 g/dL (3.4-5.0); Alkaline Phosphatase 78 U/L (46-116); Anion Gap 5.3 mmol/L (3-11); BUN 10 mg/dL (7-18); Bilirubin, Total 0.6 mg/dL (0.2-1.0); CO2 28.7 mmol/L (21.0-32.0); CREATININE 0.7 mg/dL (0.55-1.02); Calcium 9.2 mg/dL (8.5-10.1); Chloride 107 mmol/L (98-107); Glucose 100 mg/dL (74-106); Potassium 3.6 mmol/L (3.5-5.1); Sodium 141 mmol/L (136-145); TSH (W/Ref FT4) 1.54 uIU/mL (0.36-3.74); Total Protein 7.3 g/dL (6.4-8.2)
== END 2022-05-09 11:48 | disposition home or self-care (01) ==
LOC: LBO 11:50
PROVIDERS: PCP Family Medicine; Visit Provider Family Medicine
DX: R51.9 Headache, unspecified (principal); C34.90 Malignant neoplasm of unspecified part of unspecified bronchus or lung
CPT/HCPCS: 36415; 80053; 85027; 85652; 81003; 84443

== ENCOUNTER 2022-07-16 15:17 | Outpatient (REF) | payer MEDICARE, BC, SELFPAY ==
[2022-07-18 14:27] LABS: COVID-19 RT-PCR UVMMC Result Negative (Negative)
== END 2022-07-16 15:18 | disposition home or self-care (01) ==
LOC: LBN 15:17
PROVIDERS: PCP Family Medicine; Visit Provider Nurse Practitioner Family
DX: Z20.822 Contact with and (suspected) exposure to COVID-19 (principal); R50.9 Fever, unspecified
CPT/HCPCS: U0003

== ENCOUNTER 2022-07-24 18:08 | Outpatient (CLI) | payer MEDICARE, BC, SELFPAY ==
[2022-07-24 10:09] LABS: HGB 14.5 g/dL (11.2-15.7); MCH 31.6 pg (27.0-33.0); MCV 96 fL (80-95); MPV 9.1 fL (8.0-11.0); Platelet Count 261 10^3/uL (130-400); RBC 4.59 10^6/uL (3.93-5.22); RDW 13.2 % (11.7-14.6); RDW-SD 47.2 fL; WBC 7.68 10^3/uL (4.4-10.8)
[2022-07-24 10:39] LABS: Iron 153 ug/dL (50-170)
[2022-07-24 10:54] LABS: ALT 20 U/L (14-59); AST 14 U/L (15-37); Albumin 3.9 g/dL (3.4-5.0); Alkaline Phosphatase 77 U/L (46-116); Anion Gap 8.9 mmol/L (3-11); BUN 17 mg/dL (7-18); Bilirubin, Total 0.5 mg/dL (0.2-1.0); CO2 30.1 mmol/L (21.0-32.0); CREATININE 0.6 mg/dL (0.55-1.02); Chloride 103 mmol/L (98-107); Ferritin 99 ng/mL (8-252); Glucose 103 mg/dL (74-106); Potassium 3.8 mmol/L (3.5-5.1); Sodium 142 mmol/L (136-145); Total Protein 7.6 g/dL (6.4-8.2)
== END 2022-07-24 18:09 | disposition home or self-care (01) ==
LOC: LBO 18:09
PROVIDERS: PCP Family Medicine; Visit Provider Family Medicine
DX: K59.00 Constipation, unspecified (principal); K62.5 Hemorrhage of anus and rectum
CPT/HCPCS: 36415; 80053; 85027; 82728; 83540

== ENCOUNTER → 2022-09-21 09:17 | Outpatient (BNVA) | payer MEDICARE, BC, SELFPAY | PROVIDERS: PCP Family Medicine; Referring Provider Family Medicine; Visit Provider Internal Medicine Cardiovascular Disease | DX: I25.10 Atherosclerotic heart disease of native coronary artery without angina pectoris (principal); R53.83 Other fatigue | CPT/HCPCS: 99213 ==

== ENCOUNTER → 2022-11-13 17:09 | Outpatient (CLI) | payer MEDICARE, BC, SELFPAY ==
--- NOTE | 2022-11-13 14:02 | DI.RAD_ITS ---
Exam(s) XR ELBOW RT COMPLETE EXAM: XR ELBOW RT COMPLETE CLINICAL HISTORY: RT ELBOW PAIN M25.521, PAIN AND LIMITED ROM AFTER FALL. TECHNIQUE: 2D digital imaging was performed. COMPARISON: No exams were available for comparison FINDINGS: 3 views There is no evidence of obvious fracture but there is significant elevation of the anterior and poste rior fat pads consistent with joint effusion or hemarthrosis. Subtle occult fracture is therefore barbour spected Mild swelling of the olecranon bursa is noted. Radial head and neck appear unremarkable as do the ep icondyles. IMPRESSION: No obvious fractures but suspect occult fracture given that there is a joint effusion-probably hemart hrosis. DATA REPOSITORY: RADIATION DOSE DELIVERED:
== END ==
PROVIDERS: PCP Family Medicine; Visit Provider Family Medicine
DX: M25.521 Pain in right elbow (principal)
CPT/HCPCS: 73080

== ENCOUNTER 2022-11-29 14:09 | Outpatient (CLI) | payer MEDICARE, BC, SELFPAY ==
--- NOTE | 2022-11-29 14:00 | DI.RAD_ITS ---
Exam(s) XR ELBOW RT COMPLETE EXAM: XR ELBOW RT COMPLETE CLINICAL HISTORY: RIGHT ELBOW PAIN. TECHNIQUE: 2D digital imaging was performed. COMPARISON: CR XR ELBOW RT COMPLETE from 11/13/2022 FINDINGS: Four views: There is no evidence fracture or joint effusion. No swelling of olecranon bursa. Radial head and ne ck appear unremarkable. Capitellum unremarkable. No degenerative changes in the elbow joint and no loose intra-articular body seen. Epicondyles appear unremarkable. IMPRESSION: No significant osseous findings in the elbow. DATA REPOSITORY: RADIATION DOSE DELIVERED:
== END 2022-11-29 14:10 | disposition home or self-care (01) ==
LOC: DIORS 14:10
PROVIDERS: PCP Family Medicine; Referring Provider Family Medicine; Visit Provider Physician Assistant
DX: M25.421 Effusion, right elbow (principal); S50.01XA Contusion of right elbow, initial encounter; W00.9XXA Unspecified fall due to ice and snow, initial encounter
CPT/HCPCS: 99213; 73080

== ENCOUNTER 2023-03-29 02:08 | Outpatient (CLI) | payer MEDICARE, BC, SELFPAY ==
[2023-03-29 13:19] LABS: TSH (W/Ref FT4) 0.98 uIU/mL (0.36-3.74)
== END 2023-03-29 02:09 | disposition home or self-care (01) ==
LOC: LBO 02:08
PROVIDERS: PCP Family Medicine; Visit Provider Family Medicine
DX: E03.9 Hypothyroidism, unspecified (principal)
CPT/HCPCS: 36415; 82805; 84443

== ENCOUNTER 2023-04-10 01:51 | Outpatient (CLI) | payer MEDICARE, BC, SELFPAY ==
--- NOTE | 2023-04-10 08:15 | DI.RAD_ITS ---
Exam(s) XR SHOULDER RT COMPLETE 2+V EXAM: XR SHOULDER RT COMPLETE 2+V CLINICAL HISTORY: r shoulder pain,M25.511. TECHNIQUE: 2D digital imaging was performed. Five views. COMPARISON: CR RIBS LT W CHEST MIN 3VW XR from 02/17/2018 CR SHOULDER LT 2-3 VIEWS XR from 02/17/2018 CT CHEST WITH CONTRAST from 06/09/2018 FINDINGS: BONES: No acute fracture is present. No bony destructive lesion is seen. JOINTS: No dislocation present. Mild spurring at the glenoid and AC joint. Some spurring at the und ersurface of the acromion. SOFT TISSUE: Normal. IMPRESSION: Mild degenerative changes. DATA REPOSITORY: RADIATION DOSE DELIVERED:
== END 2023-04-10 02:11 ==
LOC: DI 01:52
PROVIDERS: PCP Family Medicine; Visit Provider Family Medicine
DX: M25.511 Pain in right shoulder (principal)
CPT/HCPCS: 73030

== ENCOUNTER 2023-05-03 02:24 | Outpatient (CLI) | payer MEDICARE, BC, SELFPAY ==
[2023-05-03] MEDS: Albuterol HFA 18 GM 200 PUFF INH IH (11:31)
[2023-05-03] MEDS: Inhaler, Assist Device 1 EACH MC (11:32)
--- NOTE | 2023-05-10 12:50 | W.PFT ---
Date of service: 05/03/23 Time of Service: 08:05 Pulmonary Function Test Result Indications: COPD Interpretation Spirometry: There is no airflow limitation. No significant bronchodilator response. Lung Volumes: Normal lung volumes Diffusion Capacity: Normal diffusion Airway Pressure: Normal airways resistance Impression Normal pulmonary function testing. Note: When compared to 11/21/20, lung function is stable Clinical Correlation therefore is recommended.
== END 2023-05-03 02:25 | disposition home or self-care (01) ==
LOC: RT 02:24
PROVIDERS: PCP Family Medicine; Visit Provider Student in an Organized Health Care Education/Training Program
DX: J44.9 Chronic obstructive pulmonary disease, unspecified (principal)
CPT/HCPCS: 94060; 94726; 94729

== ENCOUNTER → 2023-06-25 13:50 | Outpatient (BNVA) | payer MEDICARE, BC, SELFPAY | PROVIDERS: PCP Family Medicine; Referring Provider Family Medicine; Visit Provider Student in an Organized Health Care Education/Training Program | DX: M75.81 Other shoulder lesions, right shoulder (principal); M67.921 Unspecified disorder of synovium and tendon, right upper arm; M65.342 Trigger finger, left ring finger | CPT/HCPCS: 99214 ==

== ENCOUNTER 2023-06-26 10:08 | Emergency (ER) | payer MEDICARE, BC, SELFPAY ==
--- NOTE | 2023-06-26 10:00 | RT.EKG_ITS ---
APPROVED REPORT Exam: Resting ECG Reason for Exam: chest tightness Patient Location: E HR:63 bpm ECG Measurements Heart Rate 63 AXIS CO 144 P 45 QRSd 92 QRS 37 QT 389 T 54 QTc 398 Conclusion Sinus rhythm...normal P axis, V-rate 60- [address] segment or T wave abnormalities to suggest occlusive AK
[2023-06-26 10:10] VITALS: BP 151/83; PULSE 76; RESP 20; O2SAT 100
[2023-06-26 10:26] VITALS: RESP 18
--- NOTE | 2023-06-26 10:27 | ED.GENADUL_ITS ---
Discharge Plan Disposition Patient Disposition: Other Disposition Not Listed Other Facility: [facility] Condition: Serious Discharge Details Chief Complaint: Chest Pain Clinical Impression: Chest pain Primary Care Provider: Aurelia Bobby ED Provider: Leonarda Guzman Home Meds and New Rx's Prescriptions: No Action albuterol sulfate [Ventolin HFA] 90 mcg/actuation HFA aerosol inhaler 2 puff IH QID PRN (Reason: shortness of breath or wheezing) Qty: 18 7RF valacyclovir 500 mg tablet 500 mg PO BID PRN (Reason: herpes) Qty: 42 11RF cyanocobalamin (vitamin B-12) 1,000 mcg capsule 1,000 mcg PO DAILY cholecalciferol (vitamin D3) 50 mcg (2,000 unit) capsule 50 mcg PO DAILY aspirin 81 mg tablet,delayed release (DR/EC) 81 mg PO DAILY Qty: 1 0RF sertraline 50 mg tablet 50 mg PO DAILY Qty: 90 4RF levothyroxine 50 mcg tablet 50 mcg PO DAILY Qty: 90 11RF tramadol 50 mg tablet 50 mg PO BID MDD 4 PRN (Reason: pain) Qty: 60 3RF doxycycline hyclate 100 mg tablet 100 mg PO BID Qty: 42 0RF Trelegy Ellipta 100-62.5-25 mcg blister with device 1 inh inhalation DAILY Qty: 180 2RF clonazepam 0.5 mg tablet 0.5 mg PO .COMPLEX MDD 3 PRN (Reason: anxiety) Qty: 270 0RF Patient Comments: pt. states she took 0.25 mg today Rx Instructions: 0.5 mg PO BID and HS, prn Medical Decision Making 72yo F with hx CAD, known thoracic aortic aneurysm presenting with with chest pain, intermittent and worse with exertion, more severe today with a sensation of a bubble being blown up, radiating into right arm. No syncope or shortness of breath. Vital signs reassuring, BP 151/83, pulse 76. Non-toxic and not acutely distressed on exam, equal pulses. EKG NSR, no ST segment or T wave abnormalities to suggest occlusive DC. Broad differential including ACS, pulmonary pathology, MSK, however given hx of thoracic aneurysm, symptoms warrant CTA, regrettably CT scanner down. Accepted to [facility] by Dr. Zamora. Awaiting transfer. HPI General Mode of arrival: ambulatory . Date/Time Provider Initiated Documentation: 06/26/23 10:22 . Limitations to Documentation: no limitations . Information obtained by: patient . HPI Narrative: 72yo F with known thoracic aortic aneurysm presenting with with chest pain, intermittent and worse with exertion, more severe today with a sensation of a bubble being blown up. Radiates to her right arm. Associated lightheadedness, no syncope. No shortness of breath. Related Data Home Medications Medication Instructions Recorded Confirmed aspirin 81 mg tablet,delayed 81 mg PO DAILY #1 tab 06/19/21 06/26/23 release cholecalciferol (vitamin D3) 50 50 mcg PO DAILY 05/07/22 06/26/23 mcg (2,000 unit) capsule cyanocobalamin (vitamin B-12) 1,000 mcg PO DAILY 05/07/22 06/26/23 1,000 mcg capsule sertraline 50 mg tablet 50 mg PO DAILY #90 tabs 07/02/22 06/26/23 levothyroxine 50 mcg tablet 50 mcg PO DAILY #90 tab-caps 07/31/22 06/26/23 albuterol sulfate 90 mcg/actuation 2 puff inhalation QID PRN 09/11/22 06/26/23 aerosol inhaler (Ventolin HFA) shortness of breath or wheezing #18 grams valacyclovir 500 mg tablet 500 mg PO BID PRN herpes #42 tabs 09/11/22 06/26/23 tramadol 50 mg tablet 50 mg PO BID PRN pain #60 tab-caps 03/27/23 06/26/23 doxycycline hyclate 100 mg tablet 100 mg PO BID #42 tabs 04/23/23 06/26/23 fluticasone fur. 100 mcg-umeclid 1 inh inhalation DAILY #180 05/06/23 06/26/23 62.5 mcg-vilant 25 mcg blisters inhalat.powder (Trelegy Ellipta) clonazepam 0.5 mg tablet 0.5 mg PO .COMPLEX PRN anxiety 06/19/23 06/26/23 #270 tabs Previous Rx's Medication Instructions Recorded aspirin 81 mg tablet,delayed 81 mg PO DAILY #1 tab 06/19/21 release sertraline 50 mg tablet 50 mg PO DAILY #90 tabs 07/02/22 levothyroxine 50 mcg tablet 50 mcg PO DAILY #90 tab-caps 07/31/22 albuterol sulfate 90 mcg/actuation 2 puff inhalation QID PRN 09/11/22 aerosol inhaler (Ventolin HFA) shortness of breath or wheezing #18 grams valacyclovir 500 mg tablet 500 mg PO BID PRN herpes #42 tabs 09/11/22 tramadol 50 mg tablet 50 mg PO BID PRN pain #60 tab-caps 03/27/23 doxycycline hyclate 100 mg tablet 100 mg PO BID #42 tabs 04/23/23 fluticasone fur. 100 mcg-umeclid 1 inh inhalation DAILY #180 05/06/23 62.5 mcg-vilant 25 mcg blisters inhalat.powder (Trelegy Ellipta) clonazepam 0.5 mg tablet 0.5 mg PO .COMPLEX PRN anxiety 06/19/23 #270 tabs Allergies Allergy/AdvReac Type Severity Reaction Status Date / Time propofol AdvReac Severe Other (See Verified 06/26/23 10:20 Comment) gabapentin AdvReac Intermediate Made me Verified 06/26/23 10:20 crazy lisinopril AdvReac Intermediate cough Verified 06/26/23 10:20 verapamil Allergy Severe severe Uncoded 06/26/23 10:20 constipation General Stated Complaint: Chest Pain RASHEED: 2 Review of Systems Narrative: see HPI PFSH All Active Problems (Updated 06/26/23 @ 10:42 by Leonarda Guzman MD) Chest pain (Acute) Tendinopathy of right biceps tendon (Acute) Trigger finger, left ring finger (Acute) Right rotator cuff tendinitis (Acute) Right shoulder pain (Acute) Contusion of right elbow (Acute) Effusion, right elbow (Acute) Coronary artery disease (Chronic) Constipation (Acute) Rectal bleeding (Acute) Cluster headache syndrome (Acute) Headache (Acute) Sinus pain (Acute) Chronic pain syndrome (Chronic) Degenerative joint disease of left hip (Chronic) COPD (chronic obstructive pulmonary disease) (Chronic) Foot arch pain (Acute) Weakness (Acute) Abnormal nuclear stress test (Acute) ST segment changes on electrocardiogram (Acute) Syncope (Chronic) Adductor tendinitis of right hip (Acute) History of carpal tunnel surgery of right wrist (Acute) S/P R ECTR DOS: 05/19/19 Vaginal atrophy (Acute) Pneumonia (Acute) Left carpal tunnel syndrome (Acute) Polyp of duodenum (Acute ~01/28/20) Sensorineural hearing loss (SNHL) of both ears (Acute) Migraine headache without aura (Acute) Hypertension (Chronic 09/09/14) pt. denies this Depression (Chronic) hospitalization w/ ect and medication 12/2018 Tinnitus (Chronic 05/13/14) Post-concussion headache (Chronic 08/03/15) Hypothyroidism (Chronic 07/19/17) Functional memory problem (Chronic 04/21/15) Abnormal auditory perception (Chronic 03/02/14) NEAL ADD (attention deficit disorder) (Chronic 09/06/16) Family history of colon cancer in father (Acute) Constipation (Acute) Medical History Acute right hip pain 03/12/16 Anorexia Cervical lesion 08/24/0909/02 cervical leiomyoma removed at [facility] Chronic hip pain Cough 10/08/16 Depressive disorder (10/24/84) history of kee Fever Fracture of radius 10/24/04 left Ganglion cyst right knee H/O reduction of closed fracture 11/25/04 left radius Hx of stroke without residual deficits Impetigo 03/02/14 Myalgia Nausea alone Near syncope Primary osteoarthritis of right hip Injection under fluro: 05/19/19 Rhinitis (09/02/14) Right carpal tunnel syndrome S/P ECTR Shortness of breath Smoker 11/25/84 Sprain of right little finger Syncope Tick bite Tinnitus Unintentional weight loss Surgical History Appendectomy section Colonoscopy - IV Sedation (09/19/16) Last Colonoscopy 08/12- hyperplastic polyp EXCISION OF GANGLION CYST (09/13/15) DR. PATEL; RIGHT KNEE Excision of left distal clavicle (10/17/16) Dr. Patel Fracture, Closed Treatment (~2004) left radius H/O section H/O excision of ganglion cyst 09/13/15 History of esophagogastroduodenoscopy (EGD) (~07/2018) History of total right hip replacement (03/21/21) Hx of appendectomy Hx of breast reduction, elective 11/25/89 Reduction mammoplasty (~1989) Family History Father Personal history of malignant neoplasm colon Son No problems noted. Brother No problems noted. Other Family history of colon cancer in father Social History Smoking/Tobacco Use Status: Former Tobacco Use Quit Date: 11/25/79 Second Hand Exposure: Yes Smoking risk assessment performed?: Yes Alcohol Intake: current Alcohol Intake frequency: a few times a month Alcohol type: beer, wine and hard liquor Drug use: Occasionally Substance use type: marijuana Details: alcohol: t-1, fifty ml. marijuana: tinctures Household members: spouse Housing: house Do you need help understanding health information?: Rarely Pets and animals: Yes Pets and animals: cat(s) and dog(s) Sexually active: No Do you think of yourself as: straight/heterosexual Current gender identity: female What is your relationship status?: How often do you talk on the phone with friends or family?: twice per week How often do you get together with friends or relatives?: twice per week Do you belong to any clubs or organized social groups?: yes Panel score (0-1 are the most socially isolated patients): 3 What type of physical activity do you participate in: walking and yoga Duration: 30-45 minutes/day Frequency: daily Birgit/Anglican: No preference Seatbelt use: always Drive intox or ride w/intox special events driver: No Do you feel safe at home: Yes Do you feel safe in your relationship?: Yes Additional Social history: cannot ask privately Exam Narrative Exam Narrative: General: Alert, well appearing, well nourished, in no acute distress. Head: Normocephalic, atraumatic Neck: Trachea midline, Neck supple. Cardiac: RRR, no murmurs appreciated. Equal radial pulses. Resp: No respiratory distress. CTAB. Abd: Soft, non-distended, nontender : No suprapubic tenderness. Extremities: No deformities. No peripheral edema. Neurologic: GCS 15. Moves all extremities freely against gravity Course Vital Signs Vital signs: Vital Signs Pulse 76 06/26/23 10:10 Respiratory Rate 20 06/26/23 10:10 Blood Pressure 151/83 H 06/26/23 10:10 Pulse Oximetry 100 06/26/23 10:10 Temperature Source Oral 06/26/23 10:10 Pulse 76 06/26/23 10:10 Respiratory Rate 20 06/26/23 10:10 Blood Pressure 151/83 H 06/26/23 10:10 Blood Pressure Position Supine 06/26/23 10:10 Pulse Oximetry 100 06/26/23 10:10 Oxygen Delivery Method Room Air 06/26/23 10:10 Oxygen Flow Rate 0 06/26/23 10:10 Pain Level 5 06/26/23 10:10
== END 2023-06-26 10:55 | disposition other institution (70) ==
PROVIDERS: Emergency Provider Student in an Organized Health Care Education/Training Program; PCP Family Medicine
DX: R07.9 Chest pain, unspecified (principal); I25.10 Atherosclerotic heart disease of native coronary artery without angina pectoris
CPT/HCPCS: 93005; 99285; 93010; 99284

== ENCOUNTER 2023-08-21 15:21 | Outpatient (REF) | payer MEDICARE, BC, SELFPAY ==
[2023-08-21 21:09] LABS: Source Nasal/Nares
[2023-08-21 22:40] LABS: COVID-19 PCR Negative (Negative)
== END 2023-08-21 15:22 | disposition home or self-care (01) ==
LOC: NCHCN 15:21
PROVIDERS: PCP Family Medicine; Visit Provider Physician Assistant Medical
DX: Z20.822 Contact with and (suspected) exposure to COVID-19 (principal)
CPT/HCPCS: 87635

== ENCOUNTER 2023-10-07 15:08 | Outpatient (REF) | payer MEDICARE, BC, SELFPAY ==
--- NOTE | 2023-10-07 14:30 | ORMUBX_PTH ---
PATIENT: Isaura Arellano LOC: [facility] U#:[id number] AGE/SX: 73/F ROOM: RE10/07/[address]: Juanita Cortes : 1950 BED: DIS: 10/07/2023 SPEC #: [id number] RECD: 10/07/23 17:48 STATUS: TATO REEllyn #: [id number] ELZA: 10/07/23 14:[address]: Juanita Cortes DEPT: Surgical Specimen RECD BY: Haydee Viramontes ENTERED: 10/07/23 17:49 SP TYPE: ORMUBX OT DR: Aurelia Bobby MD, DC Tissues: 1 - MUCOSA, NOS Procedures: GROSS AND MICRO LEVEL 4 Comments: [id number]
== END 2023-10-07 15:09 | disposition home or self-care (01) ==
LOC: LBN 15:08
PROVIDERS: PCP Family Medicine; Visit Provider Registered Nurse Maternal Newborn
DX: K13.70 Unspecified lesions of oral mucosa (principal); L43.9 Lichen planus, unspecified
CPT/HCPCS: 88305

== ENCOUNTER 2023-10-22 11:57 | Outpatient (REF) | payer MEDICARE, BC, SELFPAY ==
--- NOTE | 2023-10-22 11:00 | SKI_PTH ---
PATIENT: Isaura Arellano LOC: [facility] U#:[id number] AGE/SX: 73/F ROOM: RE10/22/[address]: Aurelia Bobby MD, DC : 1950 BED: DIS: 10/22/2023 SPEC #: [id number] RECD: 10/23/23 12:54 STATUS: TATO REQ #: [id number] ELZA: 10/22/23 11:[address]: Aurelia Bobby DEPT: Surgical Specimen RECD BY: Haydee Viramontes Tissues: 1 - SKIN BIOPSY(SHAVE/PUNCH) Procedures: SKIN LEVEL 4 Comments: [id number]
== END 2023-10-22 11:58 | disposition home or self-care (01) ==
LOC: LBN 11:57
PROVIDERS: PCP Family Medicine; Visit Provider Family Medicine
DX: L91.8 Other hypertrophic disorders of the skin (principal); L43.9 Lichen planus, unspecified
CPT/HCPCS: 88305

== ENCOUNTER 2024-01-17 12:16 | Outpatient (CLI) | payer MEDICARE, BC, SELFPAY ==
--- NOTE | 2024-01-17 11:00 | DI.RAD_ITS ---
Exam(s) XR ANKLE LT COMPLETE EXAM: XR ANKLE LT COMPLETE CLINICAL HISTORY: left ankle pain TECHNIQUE: 2D digital imaging was performed of the left ankle. Three images were obtained. AP, lat eral and oblique views were obtained. COMPARISON: CR LEFT FOOT COMPLETE from 07/21/2015 FINDINGS: BONES: No acute fracture is present. No bony destructive lesion is seen. There is a small plantar darshan caneal spur. There is a small enthesophyte at the posterior calcaneus. JOINTS:The ankle mortise is normally aligned. SOFT TISSUE: There is mild soft tissue swelling about the ankle laterally. IMPRESSION: Soft tissue swelling about the ankle laterally. There is concern for internal derangement, an MRI sh ould be considered for further evaluation. DATA REPOSITORY: RADIATION DOSE DELIVERED:
== END 2024-01-17 12:17 | disposition home or self-care (01) ==
LOC: DIORS 12:17
PROVIDERS: PCP Nurse Practitioner Family
DX: S99.912A Unspecified injury of left ankle, initial encounter (principal); W10.8XXA Fall (on) (from) other stairs and steps, initial encounter
CPT/HCPCS: 99213; 73610

== ENCOUNTER → 2024-02-07 10:49 | Outpatient (BNVA) | payer MEDICARE, BC, SELFPAY | PROVIDERS: PCP Nurse Practitioner Family | DX: S99.912D Unspecified injury of left ankle, subsequent encounter (principal); X58.XXXD Exposure to other specified factors, subsequent encounter | CPT/HCPCS: 99213 ==

== ENCOUNTER 2024-02-12 07:18 | Outpatient (CLI) | payer MEDICARE, BC, SELFPAY | END 2024-02-12 07:19 | disposition home or self-care (01) | PROVIDERS: PCP Nurse Practitioner Family; Visit Provider Dermatology | DX: L43.9 Lichen planus, unspecified (principal) | CPT/HCPCS: 96900 ==

== ENCOUNTER 2024-02-13 12:53 | Outpatient (REF) | payer MEDICARE, BC, SELFPAY ==
[2024-02-13 16:49] LABS: Calculated LDL 139 mg/dL (<100); Cholesterol 235 mg/dL (<200); HDL Cholesterol 76 mg/dL (40-60); TSH 1.08 uIU/Ml (0.36-3.74); Triglyceride 102 mg/dL (<150)
[2024-02-13 17:13] LABS: FREE T4 1.05 ng/dL (0.76-1.46)
== END 2024-02-13 12:54 | disposition home or self-care (01) ==
LOC: NCHCN 12:53
PROVIDERS: PCP Nurse Practitioner Family; Visit Provider Nurse Practitioner Family
DX: E03.9 Hypothyroidism, unspecified (principal); E78.5 Hyperlipidemia, unspecified
CPT/HCPCS: 80061; 84439; 84443

== ENCOUNTER → 2024-02-14 00:25 | Outpatient (CLI) | payer MEDICARE, BC, SELFPAY ==
--- NOTE | 2024-02-14 | DI.MAMMO_ITS ---
Exam(s) MAMMO SCREENING EXAM: MAMMO SCREENING CLINICAL HISTORY: SCREENING,MZ12.31. TECHNIQUE: Bilateral full field digital CC and MLO mammographic images were obtained with 3D tomosyn thesis and utilizing computer aided detection (CAD). COMPARISON: Prior mammograms were reviewed. FINDINGS: There has been no significant change in the appearance and distribution of the fibroglandular tissue. There are no new spiculated masses nor malignant appearing microcalcification groups. There is no significant architectural distortion nor skin thickening-retraction. IMPRESSION: No radiographic evidence of malignancy. BI-RADS Category 1 - Negative Breast Density - Category B - Scattered areas of fibroglandular density Breast density Category C or D implies that the patient has dense breast tissue. Dense breast tissue can make it harder to find cancer on a mammogram. Dense breast tissue is also associated with an incr eased risk of breast cancer. This information about the result of the mammogram report was provided to the patient to raise their awareness. Use this report when you speak with the patient about their risks for breast cancer, which includes their family history. At that time, you may recommend additional screening tests (Ultrasoun d or MRI) as these tests may add significant information. A negative radiographic report should not delay biopsy if a dominant or clinically suspicious mass is present. Up to ten percent of cancers are not identified on mammography. A negative report may reinforce clinical impression. Adenosis and dense breasts may obscure an underlying neoplasm. False positive reports average 6 to 10%. Patient will receive a letter notifying them of these results.
== END ==
PROVIDERS: PCP Nurse Practitioner Family; Visit Provider Nurse Practitioner Family
DX: Z12.31 Encounter for screening mammogram for malignant neoplasm of breast (principal)
CPT/HCPCS: 77063; 77067

== ENCOUNTER 2024-02-14 07:12 | Outpatient (CLI) | payer MEDICARE, BC, SELFPAY | END 2024-02-14 07:13 | disposition home or self-care (01) | LOC: PUVA 07:13 | PROVIDERS: PCP Nurse Practitioner Family; Visit Provider Dermatology | DX: L43.9 Lichen planus, unspecified (principal) | CPT/HCPCS: 96900 ==

== ENCOUNTER 2024-02-21 07:13 | Outpatient (CLI) | payer MEDICARE, BC, SELFPAY | END 2024-02-21 07:14 | disposition home or self-care (01) | LOC: PUVA 07:14 | PROVIDERS: PCP Nurse Practitioner Family; Visit Provider Dermatology | DX: L43.9 Lichen planus, unspecified (principal) | CPT/HCPCS: 96900 ==

== ENCOUNTER 2024-02-25 07:17 | Outpatient (CLI) | payer MEDICARE, BC, SELFPAY | END 2024-02-25 07:18 | disposition home or self-care (01) | LOC: PUVA 07:18 | PROVIDERS: PCP Nurse Practitioner Family; Visit Provider Dermatology | DX: L43.9 Lichen planus, unspecified (principal) | CPT/HCPCS: 96900 ==

== ENCOUNTER 2024-02-28 07:06 | Outpatient (CLI) | payer MEDICARE, BC, SELFPAY | END 2024-02-28 07:07 | disposition home or self-care (01) | LOC: PUVA 07:06 | PROVIDERS: PCP Nurse Practitioner Family; Visit Provider Dermatology | DX: L43.9 Lichen planus, unspecified (principal) | CPT/HCPCS: 96900 ==

== ENCOUNTER 2024-03-03 07:14 | Outpatient (CLI) | payer MEDICARE, BC, SELFPAY | END 2024-03-03 07:15 | disposition home or self-care (01) | LOC: PUVA 07:15 | PROVIDERS: PCP Nurse Practitioner Family; Visit Provider Dermatology | DX: L43.9 Lichen planus, unspecified (principal) | CPT/HCPCS: 96900 ==

== ENCOUNTER 2024-03-06 07:04 | Outpatient (CLI) | payer MEDICARE, BC, SELFPAY | END 2024-03-06 07:05 | disposition home or self-care (01) | LOC: PUVA 07:05 | PROVIDERS: PCP Nurse Practitioner Family; Visit Provider Dermatology | DX: L43.9 Lichen planus, unspecified (principal) | CPT/HCPCS: 96900 ==

== ENCOUNTER 2024-03-10 07:15 | Outpatient (CLI) | payer MEDICARE, BC, SELFPAY | END 2024-03-10 07:16 | disposition home or self-care (01) | LOC: PUVA 07:15 | PROVIDERS: PCP Nurse Practitioner Family; Visit Provider Dermatology | DX: L43.9 Lichen planus, unspecified (principal) | CPT/HCPCS: 96900 ==

== ENCOUNTER 2024-03-17 07:19 | Outpatient (CLI) | payer MEDICARE, BC, SELFPAY | END 2024-03-17 07:20 | disposition home or self-care (01) | LOC: PUVA 07:19 | PROVIDERS: PCP Nurse Practitioner Family; Visit Provider Dermatology | DX: L43.9 Lichen planus, unspecified (principal) | CPT/HCPCS: 96900 ==

== ENCOUNTER 2024-03-20 07:11 | Outpatient (CLI) | payer MEDICARE, BC, SELFPAY | END 2024-03-20 07:12 | disposition home or self-care (01) | LOC: PUVA 07:11 | PROVIDERS: PCP Nurse Practitioner Family; Visit Provider Dermatology | DX: L43.9 Lichen planus, unspecified (principal) | CPT/HCPCS: 96900 ==

== ENCOUNTER 2024-03-27 06:58 | Outpatient (CLI) | payer MEDICARE, BC, SELFPAY | END 2024-03-27 06:59 | disposition home or self-care (01) | LOC: PUVA 06:58 | PROVIDERS: PCP Nurse Practitioner Family; Visit Provider Dermatology | DX: L43.9 Lichen planus, unspecified (principal) | CPT/HCPCS: 96900 ==

== ENCOUNTER 2024-03-31 07:06 | Outpatient (CLI) | payer MEDICARE, BC, SELFPAY | END 2024-03-31 07:07 | disposition home or self-care (01) | LOC: PUVA 07:07 | PROVIDERS: PCP Nurse Practitioner Family; Visit Provider Dermatology | DX: L43.9 Lichen planus, unspecified (principal) | CPT/HCPCS: 96900 ==

== ENCOUNTER 2024-04-03 07:23 | Outpatient (CLI) | payer MEDICARE, BC, SELFPAY | END 2024-04-03 07:24 | disposition home or self-care (01) | LOC: PUVA 07:23 | PROVIDERS: PCP Nurse Practitioner Family; Visit Provider Dermatology | DX: L43.9 Lichen planus, unspecified (principal) | CPT/HCPCS: 96900 ==

== ENCOUNTER 2024-04-06 08:05 | Outpatient (CLI) | payer MEDICARE, BC, SELFPAY | END 2024-04-06 08:06 | disposition home or self-care (01) | LOC: PUVA 08:05 | PROVIDERS: PCP Nurse Practitioner Family; Visit Provider Dermatology | DX: L43.9 Lichen planus, unspecified (principal) | CPT/HCPCS: 96900 ==

== ENCOUNTER 2024-04-10 07:22 | Outpatient (CLI) | payer MEDICARE, BC, SELFPAY | END 2024-04-10 07:23 | disposition home or self-care (01) | LOC: PUVA 07:23 | PROVIDERS: PCP Nurse Practitioner Family; Visit Provider Dermatology | DX: L43.9 Lichen planus, unspecified (principal) | CPT/HCPCS: 96900 ==

== ENCOUNTER 2024-04-13 07:20 | Outpatient (CLI) | payer MEDICARE, BC, SELFPAY | END 2024-04-13 07:21 | disposition home or self-care (01) | LOC: PUVA 07:20 | PROVIDERS: PCP Nurse Practitioner Family; Visit Provider Dermatology | DX: L43.9 Lichen planus, unspecified (principal) | CPT/HCPCS: 96900 ==

== ENCOUNTER → 2024-04-16 12:54 | Outpatient (BNVA) | payer MEDICARE, BC, SELFPAY | PROVIDERS: PCP Nurse Practitioner Family; Referring Provider Nurse Practitioner Family; Visit Provider Physician Assistant Surgical | DX: C34.90 Malignant neoplasm of unspecified part of unspecified bronchus or lung (principal); J44.9 Chronic obstructive pulmonary disease, unspecified | CPT/HCPCS: 99214 ==

== ENCOUNTER 2024-04-17 06:57 | Outpatient (CLI) | payer MEDICARE, BC, SELFPAY | END 2024-04-17 06:58 | disposition home or self-care (01) | LOC: PUVA 06:57 | PROVIDERS: PCP Nurse Practitioner Family; Visit Provider Dermatology | DX: L43.9 Lichen planus, unspecified (principal) | CPT/HCPCS: 96900 ==

== ENCOUNTER 2024-04-24 07:16 | Outpatient (CLI) | payer MEDICARE, BC, SELFPAY | END 2024-04-24 07:17 | disposition home or self-care (01) | LOC: PUVA 07:16 | PROVIDERS: PCP Nurse Practitioner Family; Visit Provider Dermatology | DX: L43.9 Lichen planus, unspecified (principal) | CPT/HCPCS: 96900 ==

== ENCOUNTER 2024-04-27 12:59 | Outpatient (CLI) | payer MEDICARE, BC, SELFPAY | END 2024-04-27 13:00 | disposition home or self-care (01) | LOC: PUVA 13:01 | PROVIDERS: PCP Nurse Practitioner Family; Visit Provider Dermatology | DX: L43.9 Lichen planus, unspecified (principal) | CPT/HCPCS: 96900 ==

== ENCOUNTER 2024-05-01 07:09 | Outpatient (CLI) | payer MEDICARE, BC, SELFPAY | END 2024-05-01 07:10 | disposition home or self-care (01) | LOC: PUVA 07:09 | PROVIDERS: PCP Nurse Practitioner Family; Visit Provider Dermatology | DX: L43.9 Lichen planus, unspecified (principal) | CPT/HCPCS: 96900 ==

== ENCOUNTER 2024-05-04 07:02 | Outpatient (CLI) | payer MEDICARE, BC, SELFPAY | END 2024-05-04 07:03 | disposition home or self-care (01) | LOC: PUVA 07:02 | PROVIDERS: PCP Nurse Practitioner Family; Visit Provider Dermatology | DX: L43.9 Lichen planus, unspecified (principal) | CPT/HCPCS: 96900 ==

== ENCOUNTER 2024-05-22 07:12 | Outpatient (CLI) | payer MEDICARE, BC, SELFPAY | END 2024-05-22 07:13 | disposition home or self-care (01) | LOC: PUVA 07:13 | PROVIDERS: PCP Nurse Practitioner Family; Visit Provider Dermatology | DX: L43.9 Lichen planus, unspecified (principal) | CPT/HCPCS: 96900 ==

== ENCOUNTER 2024-05-25 10:34 | Outpatient (CLI) | payer MEDICARE, BC, SELFPAY | END 2024-05-25 10:35 | disposition home or self-care (01) | LOC: PUVA 10:34 | PROVIDERS: PCP Nurse Practitioner Family; Visit Provider Dermatology | DX: L43.9 Lichen planus, unspecified (principal) | CPT/HCPCS: 96900 ==

== ENCOUNTER 2024-06-01 08:59 | Outpatient (CLI) | payer MEDICARE, BC, SELFPAY | END 2024-06-01 09:00 | disposition home or self-care (01) | LOC: PUVA 08:59 | PROVIDERS: PCP Nurse Practitioner Family; Visit Provider Dermatology | DX: L43.9 Lichen planus, unspecified (principal) | CPT/HCPCS: 96900 ==

== ENCOUNTER 2024-06-08 13:20 | Outpatient (CLI) | payer MEDICARE, BC, SELFPAY | END 2024-06-08 13:21 | disposition home or self-care (01) | LOC: PUVA 13:20 | PROVIDERS: PCP Nurse Practitioner Family; Visit Provider Dermatology | DX: L43.8 Other lichen planus (principal) | CPT/HCPCS: 96900 ==

== ENCOUNTER 2024-07-15 12:17 | Emergency (ER) | payer MEDICARE, BC, SELFPAY ==
[2024-07-15] VITALS (35 sets, daily range): BP systolic 115–146; BP diastolic 50–99; PULSE 62–121; RESP 11–32; TEMP 36.8–36.9; O2SAT 93–97
[2024-07-15 12:35] LABS: Abs Immature Grans 0.03 10^3/uL (0.0-0.06); Absolute Basophil Count 0.04 10^3/uL (0.0-0.2); Absolute Lymphocyte Count 2.47 10^3/uL (1.2-3.4); Absolute Neutrophil Count 3.94 10^3/uL (1.2-6.7); Basophils % 0.6 %; Eosinophils % 1.4 %; HCT 49.2 % (36.0-46.0); HGB 16.4 g/dL (11.2-15.7); Immature Grans % 0.4 %; Lymphocytes % 34.9 %; MCH 32.2 pg (27.0-33.0); MCHC 33.3 % (32.0-36.0); MCV 97 fL (80-95); MPV 9.3 fL (8.0-11.0); Monocytes % 7.1 %; Neutrophils % 55.6 %; Platelet Count 263 10^3/uL (130-400); RBC 5.09 10^6/uL (3.93-5.22); RDW 14.8 % (11.7-14.6); RDW-SD 53.2 fL; WBC 7.08 10^3/uL (4.4-10.8)
[2024-07-15] MEDS: Dexamethasone 10 MG/ML VIAL IVP (12:40)
[2024-07-15] MEDS: Famotidine 20 MG/2 ML VIAL IVP (12:45)
[2024-07-15] MEDS: EPINEPHrine 1 MG/ML AMP pres-free (12:45)
[2024-07-15] MEDS: Normal Saline 1,000 ML 1000 ML IV (12:45)
--- NOTE | 2024-07-15 12:55 | ED.GENADUL_ITS ---
Discharge Plan Disposition Patient Disposition: Home Condition: Improving Discharge Details Clinical Impression: Anaphylactic reaction Primary Care Provider: Tamera Jensen ED Provider: Johnny Gan Home Meds and New Rx's Prescriptions: New epinephrine [EpiPen 2-Santhosh] 0.3 mg/0.3 mL auto-injector 0.3 mg IM ONCE Qty: 2 0RF Rx Instructions: as a single dose; may repeat once No Action albuterol sulfate [Ventolin HFA] 90 mcg/actuation HFA aerosol inhaler 2 puff IH QID PRN (Reason: shortness of breath or wheezing) Qty: 18 7RF valacyclovir 500 mg tablet 500 mg PO BID PRN (Reason: herpes) Qty: 42 11RF cholecalciferol (vitamin D3) 50 mcg (2,000 unit) capsule 50 mcg PO DAILY vitamin B complex Tablet 1 tab PO DAILY Trelegy Ellipta 100-62.5-25 mcg blister with device 1 inh inhalation DAILY 90 Days Qty: 60 12RF aspirin 81 mg tablet,delayed release (DR/EC) 81 mg PO DAILY Qty: 1 0RF sertraline 50 mg tablet 75 mg PO DAILY Qty: 135 4RF clonazepam 0.5 mg tablet 0.5 mg PO .COMPLEX MDD 3 PRN (Reason: anxiety) Qty: 270 1RF Patient Comments: pt. states she took 0.25 mg today Rx Instructions: 0.5 mg PO BID and HS, prn levothyroxine 50 mcg tablet 50 mcg PO DAILY Qty: 90 11RF albuterol sulfate 2.5 mg /3 mL (0.083 %) solution for nebulization 2.5 mg inhalation QID PRN (Reason: shortness of breath or wheezing J44.9) Q ty: 75 0RF clobetasol 0.05 % ointment See Rx Instructions .ROUTE .COMPLEX Qty: 60 2RF Dose Instruction: APPLY TO AFFECTED AREA(S) TWO TIMES A DAY Rx Instructions: APPLY TO AFFECTED AREA(S) TWO TIMES A DAY estradiol [Estrace] 0.01 % (0.1 mg/gram) cream 1 appful vaginal DAILY Qty: 42.5 3RF Discharge Instructions Instructions: Anaphylaxis Additional Instructions: Please return to the emergency department for any worsening symptoms HPI General Date/Time Provider Initiated Documentation: 07/15/24 12:29 . HPI Narrative: 74-year-old female brought in for evaluation of likely anaphylaxis, facial swelling tongue swelling full body rash in the setting of taking Keflex earlier today for a painful tooth as well as acetaminophen with codeine and a dental paste the only other environmental exposure from today was corn chowder from the co-op that she has eaten multiple times before. A prior episode of allergic reaction in the past was thought to be related to an antibiotic however no definitive diagnosis was made. Patient was given 0.3 mg epi IM, patient took Benadryl before arrival patient was also given a DuoNeb, with improvement of symptomatology Related Data Home Medications ?Medication ?Instructions ?Recorded ?Confirmed aspirin 81 mg tablet,delayed 81 mg PO DAILY #1 tab 06/19/21 07/15/24 release cholecalciferol (vitamin D3) 50 50 mcg PO DAILY 05/07/22 07/15/24 mcg (2,000 unit) capsule albuterol sulfate 90 mcg/actuation 2 puff inhalation QID PRN 09/11/22 07/15/24 aerosol inhaler (Ventolin HFA) shortness of breath or wheezing #18 grams valacyclovir 500 mg tablet 500 mg PO BID PRN herpes #42 tabs 09/11/22 07/15/24 sertraline 50 mg tablet 75 mg (1.5 x 50 mg) PO DAILY #135 07/30/23 07/15/24 tabs clonazepam 0.5 mg tablet 0.5 mg PO .COMPLEX PRN anxiety 10/09/23 07/15/24 #270 tabs levothyroxine 50 mcg tablet 50 mcg PO DAILY #90 tab-caps 10/14/23 07/15/24 albuterol sulfate 2.5 mg/3 mL 2.5 mg (3 mL) inhalation QID PRN 11/01/23 07/15/24 (0.083 %) solution for nebulization shortness of breath or wheezing J44.9 #75 mL clobetasol 0.05 % topical ointment See Rx Instructions .Route 01/13/24 07/15/24 .COMPLEX #60 grams fluticasone fur. 100 mcg-umeclid 1 inh inhalation DAILY 90 days #60 04/16/24 07/15/24 62.5 mcg-vilant 25 mcg ea inhalat.powder (Trelegy Ellipta) vitamin B complex 1 tab PO DAILY 04/16/24 07/15/24 estradiol 0.01% (0.1 mg/gram) 1 appful vaginal DAILY #42.5 grams 06/16/24 07/15/24 vaginal cream (Estrace) epinephrine 0.3 mg/0.3 mL 0.3 mg (0.3 mL) IM ONCE #2 ea 07/15/24 injection, auto-injector (EpiPen 2-Santhosh) Previous Rx's ?Medication ?Instructions ?Recorded aspirin 81 mg tablet,delayed 81 mg PO DAILY #1 tab 06/19/21 release albuterol sulfate 90 mcg/actuation 2 puff inhalation QID PRN 09/11/22 aerosol inhaler (Ventolin HFA) shortness of breath or wheezing #18 grams valacyclovir 500 mg tablet 500 mg PO BID PRN herpes #42 tabs 09/11/22 sertraline 50 mg tablet 75 mg (1.5 x 50 mg) PO DAILY #135 07/30/23 tabs clonazepam 0.5 mg tablet 0.5 mg PO .COMPLEX PRN anxiety 10/09/23 #270 tabs levothyroxine 50 mcg tablet 50 mcg PO DAILY #90 tab-caps 10/14/23 albuterol sulfate 2.5 mg/3 mL 2.5 mg (3 mL) inhalation QID PRN 11/01/23 (0.083 %) solution for nebulization shortness of breath or wheezing J44.9 #75 mL clobetasol 0.05 % topical ointment See Rx Instructions .Route 01/13/24 .COMPLEX #60 grams fluticasone fur. 100 mcg-umeclid 1 inh inhalation DAILY 90 days #60 04/16/24 62.5 mcg-vilant 25 mcg ea inhalat.powder (Trelegy Ellipta) estradiol 0.01% (0.1 mg/gram) 1 appful vaginal DAILY #42.5 grams 06/16/24 vaginal cream (Estrace) epinephrine 0.3 mg/0.3 mL 0.3 mg (0.3 mL) IM ONCE #2 ea 07/15/24 injection, auto-injector (EpiPen 2-Santhosh) Allergies Allergy/AdvReac Type Severity Reaction Status Date / Time propofol AdvReac Severe Other (See Verified 07/15/24 12:22 Comment) gabapentin AdvReac Intermediate Made me Verified 07/15/24 12:22 crazy lisinopril AdvReac Intermediate cough Verified 07/15/24 12:22 alcaftadine (From [facility]) AdvReac Other (See Verified 07/15/24 12:22 Comment) verapamil Allergy Severe severe Uncoded 07/15/24 12:22 constipation General Stated Complaint: Allergic RASHEED: 2 Exam Narrative Exam Narrative: Alert oriented Tolerating secretions normal voicem, no stridor No oropharyngeal edema Lungs clear bilaterally no wheezes rales or rhonchi Abdomen soft nontender nondistended Diffuse erythematous/urticarial rash face arms chest back Course Vital Signs Vital signs: Vital Signs Temperature 36.9 C 07/15/24 12:17 Pulse 118 H 07/15/24 12:17 Respiratory Rate 16 07/15/24 12:17 Blood Pressure 125/86 07/15/24 12:17 Pulse Oximetry 97 07/15/24 12:17 Temperature 36.9 C 07/15/24 12:17 Pulse 118 H 07/15/24 12:17 Respiratory Rate 16 07/15/24 12:17 Respiratory Effort Normal 07/15/24 12:24 Respiratory Pattern Normal 07/15/24 12:24 Blood Pressure 125/86 07/15/24 12:17 Pulse Oximetry 97 07/15/24 12:17 Pain Level 0 07/15/24 12:17 Lab/Test Results Lab/Test Results: Laboratory Tests Range/Units 07/15/24 12:25 WBC (4.4-10.8) 10^3/uL 7.08 RBC (3.93-5.22) 10^6/uL 5.09 Hgb (11.2-15.7) g/dL 16.4 H Hct (36.0-46.0) % 49.2 H MCV (80-95) fL 97 H MCH (27.0-33.0) pg 32.2 MCHC (32.0-36.0) % 33.3 RDW (11.7-14.6) % 14.8 H Plt Count (130-400) 10^3/uL 263 MPV (8.0-11.0) fL 9.3 Immature Gran % % 0.4 Neutrophils % % 55.6 Lymphocytes % % 34.9 Monocytes % % 7.1 Eosinophils % % 1.4 Basophils % % 0.6 Nucleated RBC % (0.0-0.3) % 0.0 Absolute Neutrophils (1.2-6.7) 10^3/uL 3.94 Absolute Lymphocytes (1.2-3.4) 10^3/uL 2.47 Absolute Monocytes (0.1-0.8) 10^3/uL 0.50 Absolute Eosinophils (0.0-0.7) 10^3/uL 0.10 Absolute Basophils (0.0-0.2) 10^3/uL 0.04 Sodium Cancelled Potassium Cancelled Chloride Cancelled Carbon Dioxide Cancelled Anion Gap Cancelled BUN Cancelled Creatinine Cancelled Est GFR (CKD-EPI 2020) Cancelled Glucose Cancelled Calcium Cancelled Total Bilirubin Cancelled AST Cancelled ALT Cancelled Alkaline Phosphatase Cancelled Total Protein Cancelled Albumin Cancelled Medical Decision Making 74-year-old female presents with anaphylactic reaction to likely environmental stimuli. Improving greatly after epinephrine dexamethasone and Benadryl at home, fluids famotidine. Normal voice tolerating secretions hemodynamically stable no nausea no vomiting no hypotension. Rash completely resolved. Patient observed for several hours. Feels comfortable would like to go home. Will prescribe EpiPen for home. Given strict return precautions and home care instructions. Instructed to avoid the new stimuli from today including Keflex Tylenol with codeine and dental paste/wax. Quality:SDOH Health Related Social Needs: No Data to Display PFSH All Active Problems (Updated 07/15/24 @ 15:41 by Johnny Gan MD) Anaphylactic reaction (Acute) Left ankle injury (Acute 12/29/23) COVID (Acute) Vulvar dystrophy (Acute) Acquired skin tag (Acute) Rash (Acute) Lichen planus (Acute) Oral mucosal lesion (Acute) Episodic lightheadedness (Acute) Tendinopathy of right biceps tendon (Acute) Trigger finger, left ring finger (Acute) Right rotator cuff tendinitis (Acute) Right shoulder pain (Acute) Contusion of right elbow (Acute) Effusion, right elbow (Acute) Coronary artery disease (Chronic) Constipation (Acute) Rectal bleeding (Acute) Cluster headache syndrome (Acute) Headache (Acute) Sinus pain (Acute) Chronic pain syndrome (Chronic) Degenerative joint disease of left hip (Chronic) COPD (chronic obstructive pulmonary disease) (Chronic) Foot arch pain (Acute) Weakness (Acute) Abnormal nuclear stress test (Acute) ST segment changes on electrocardiogram (Acute) Syncope (Chronic) Adductor tendinitis of right hip (Acute) History of carpal tunnel surgery of right wrist (Acute) S/P R ECTR DOS: 05/19/19 Vaginal atrophy (Acute) Pneumonia (Acute) Left carpal tunnel syndrome (Acute) Polyp of duodenum (Acute ~01/28/20) Sensorineural hearing loss (SNHL) of both ears (Acute) Migraine headache without aura (Acute) Hypertension (Chronic 09/09/14) pt. denies this Depression (Chronic) hospitalization w/ ect and medication 12/2018 Tinnitus (Chronic 05/13/14) Post-concussion headache (Chronic 08/03/15) Hypothyroidism (Chronic 07/19/17) Functional memory problem (Chronic 04/21/15) Abnormal auditory perception (Chronic 03/02/14) NEAL ADD (attention deficit disorder) (Chronic 09/06/16) Family history of colon cancer in father (Acute) Constipation (Acute) Medical History Near syncope Shortness of breath Chronic hip pain Tinnitus Fever Tick bite Myalgia Syncope Sprain of right little finger Right carpal tunnel syndrome S/P ECTR Primary osteoarthritis of right hip Injection under fluro: 05/19/19 Ganglion cyst right knee Smoker 11/25/84 Fracture of radius 10/24/04 left H/O reduction of closed fracture 11/25/04 left radius Cervical lesion 08/24/0909/02 cervical leiomyoma removed at [facility] Impetigo 03/02/14 Acute right hip pain 03/12/16 Cough 10/08/16 Rhinitis (09/02/14) Depressive disorder (10/24/84) history of kee Anorexia Nausea alone Unintentional weight loss Hx of stroke without residual deficits Surgical History History of total right hip replacement (03/21/21) H/O section Hx of appendectomy Hx of breast reduction, elective 11/25/89 H/O excision of ganglion cyst 09/13/15 History of esophagogastroduodenoscopy (EGD) (~07/2018) section Fracture, Closed Treatment (~2004) left radius Excision of left distal clavicle (10/17/16) Dr. Patel EXCISION OF GANGLION CYST (09/13/15) DR. PATEL; RIGHT KNEE Colonoscopy - IV Sedation (09/19/16) Last Colonoscopy 08/12- hyperplastic polyp Reduction mammoplasty (~1989) Appendectomy Family History Father Personal history of malignant neoplasm colon Son No problems noted. Brother No problems noted. Other Family history of colon cancer in father Social History Smoking/Tobacco Use Status: Former Tobacco Use Quit Date: 11/25/79 Second Hand Exposure: Yes Smoking risk assessment performed?: Yes Alcohol Intake: current Alcohol Intake frequency: a few times a month Alcohol type: beer, wine and hard liquor Drug use: Occasionally Substance use type: marijuana Details: alcohol: t-1, fifty ml. marijuana: tinctures Household members: spouse Housing: house Do you need help understanding health information?: Rarely Pets and animals: Yes Pets and animals: cat(s) and dog(s) Sexually active: No Do you think of yourself as: straight/heterosexual Current gender identity: female What is your relationship status?: How often do you talk on the phone with friends or family?: twice per week How often do you get together with friends or relatives?: twice per week Do you belong to any clubs or organized social groups?: yes Panel score (0-1 are the most socially isolated patients): 3 What type of physical activity do you participate in: walking and yoga Duration: 30-45 minutes/day Frequency: daily Birgit/Sikhism: No preference Seatbelt use: always Drive 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
[2024-07-15 13:08] LABS: ALT 14 U/L (14-59); AST 12 U/L (15-37); Albumin 3.3 g/dL (3.4-5.0); Alkaline Phosphatase 83 U/L (46-116); Anion Gap 7.6 mmol/L (3-11); BUN 17 mg/dL (7-18); Bilirubin, Total 0.34 mg/dL (0.2-1.0); CO2 27.4 mmol/L (21.0-32.0); CREATININE 0.8 mg/dL (0.55-1.02); Calcium 8.6 mg/dL (8.5-10.1); Chloride 104 mmol/L (98-107); Estimated GFR 78.24 (mL/min/1.73m2); Glucose 214 mg/dL (74-106); Potassium 3.6 mmol/L (3.5-5.1); Sodium 139 mmol/L (136-145); Total Protein 6.3 g/dL (6.4-8.2)
--- OUTSIDE RECORDS SUMMARY | 2024-07-15 14:26 | XMS_ITS | Encounter Summary ---
Author Organization [facility] [place] [address] Care Team Providers Care Fisher Pound Net Or Trap Name Role Phone ChapinChanceTamera Primary Care Provider Reason for Visit * Reason Comments Follow-up Encounter Details Date Type Department Care Team (Late st Contact Info) Description 06/09/2024 4:30 PM EDT Office Visit Dermatology at [address] [id number] Milo El MD [address] [place] [address], [facility] [place] [address] Lichen planus Social History Tobacco Use Types Packs/Day Years Used Date Smoking Tobacco: Former Cigarettes Q uit: 03/1988 Smokeless Tobacco: Never Comments:uses nicotene gum w hen I get stressed Alcohol Use Standard Drinks/Week Comments Yes 1 (1 standard drink = 0.6 oz pur e alcohol) once a week Sex and Gender Information Value Date Recorded Sex Assigned at Female 06/08/2021 7:37 PM EDT Gender Identity Not on file Sexual Orientation Not on file documented as of this encounter Progress Notes * Milo El MD - 06/09/2024 4:30 PM EDT Problem: 1. Follow-up lichen planus on NVR H narrowband UVB phototherapy 2. Lichen sclerosus utilizing clobetasol cream 3. 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 I last saw her in March. She has been doing very well. Physical examination reveals a pleasant 73-year-old who has excellent healing of the SCCA treatmentsite on her right lateral calf. She has no active lichen planus on the lower extremities. She stillhas no intraoral lichen planus. Assessment plan: Lichen planus, resolved 1. DC phototherapy 2. Patient congratulated on remission 3. Return to clinic as needed. CC: Tamera Jensen APRN documented in this encounter Plan of Treatment Upcoming Encounters Date Type Department Care Team (Late st Contact Info) Description 09/01/2024 4:30 PM EDT Office Visit Dermatology at [facility] [address] [place] [address] Ruma Echavarria MD [facility] [address] [place] [address] documented as of this encounter Visit Diagnoses Diagnosis Lichen planus documented in this encounter Care Teams Fisher P[employer] Net Or Trap Relationship Specialty Start Date End Date Tamera Jensen [address] [place] [address] PCP - General Family Medicine 01/24/24 documented as of this encounter
--- OUTSIDE RECORDS SUMMARY | 2024-07-15 14:26 | XMS_ITS | Encounter Summary ---
Author Organization [facility] Address [facility] [place] [address] Care Team Providers Care Clerical Methods Analyst Name Role Phone Tamera Jensen Primary Care Provider [phone] Encounter Details Date Type Department Care Team (Latest Contact Info) Description 03/30/2024 Travel Social History Tobacco Use Types Packs/Day Years [...] on file documented as of this encounter Plan of Treatment Upcoming Encounters Date Type Department Care Team (Late Contact Info) Description 09/01/2024 4:30 PM EDT Office Visit Dermatology at [facility] [address] [place] [address] Ruma Echavarria MD [facility] DR ABDIRAHMAN [place] [address] documented as of this encounter Visit Diagnoses Not on filedocumented in this encounter Care Teams Clerical Methods Analyst Relationship Specialty Start Date End Date Tamera Jensen [address] [place] [address] PCP - General Family Medicine 01/24/24 documented as of this encounter
--- OUTSIDE RECORDS SUMMARY | 2024-07-15 14:26 | XMS_ITS | Encounter Summary ---
Author Organization [facility] Address [facility] [place] [address] Care Team Providers Care Topstitcher Lockstitch Name Role Phone Tamera Jensen Primary Care Provider [phone] Encounter Details Date Type Department Care Team (Latest Contact Info) Description 03/23/2024 Travel Social History Tobacco Use Types Packs/Day Years Used Date Smoking Tobacco: Former Cigarettes Q uit: 03/1988 Smokeless Tobacco: Never Comments:uses nicotene gum w hen I get stressed Alcohol Use Standard Drinks/Week Comments Yes 1 (1 standard drink = 0.6 oz pur e alcohol) Sex and Gender Information Value Date Recorded Sex Assigned at Female 06/08/2021 7:37 PM EDT Gender Identity Not on file Sexual Orientation Not on file documented as of this encounter Plan of Treatment Upcoming Encounters Date Type Department Care Team (Late st Contact Info) Description 09/01/2024 4:30 PM EDT Office Visit Dermatology at [facility] [address] [place] [address] Ruma Echavarria MD [facility] DR ABDIRAHMAN [place] [address] documented as of this encounter Visit Diagnoses Not on filedocumented in this encounter Care Teams Topstitcher Lockstitch Relationship Specialty Start Date End Date Tamera Jensen [address] [place], [place] [id number] PCP - General Family Medicine 01/24/24 documented as of this encounter
--- OUTSIDE RECORDS SUMMARY | 2024-07-15 14:26 | XMS_ITS | Encounter Summary ---
Author Organization [facility] [place] [address] Care Team Providers Care Library Circulation Clerk Name Role Phone ChapinChanceTamera Primary Care Provider [phone]- [phone] Encounter Details Date Type Department Care Team (Late st Contact Info) Description 03/25/2024 9:15 AM EDT - 03/25/2024 9:45 AM EDT Surgery [place] [id number] Kenney Linares MD [facility] [place] [address] EGD WITH BIOPSY (WRVU 2.39) Social History Tobacco Use Types Packs/Day Years Used Date Smoking Tobacco: Former Cigarettes Q uit: 03/1988 Smokeless Tobacco: Never Tobacco Cessation:Counseling Given: Not Answered Comments:uses nicotene gum when I get stressed Alcohol Use Standard Drinks/Week Comments Yes 1 (1 standard drink = 0.6 oz pur e alcohol) once a week Sex and Gender Information Value Date Recorded Sex Assigned at Female 06/08/2021 7:37 PM EDT Gender Identity Not on file Sexual Orientation Not on file documented as of this encounter Last Filed Vital Signs Vital Sign Reading Time Taken Comments Blood Pressure 136/66 03/25/2024 9:43 AM EDT Pulse 59 03/25/2024 9:35 AM EDT Temperature - - Respiratory Rate 15 03/25/2024 9:43 AM EDT Oxygen Saturation 94% 03/25/2024 9:43 AM EDT Inhaled Oxygen Concentration - - Weight 59 kg (130 lb) 03/25/2024 8:18 AM EDT Height 162.6 cm (5' 4) 03/25/2024 8:18 AM EDT Body Mass Index 22.31 03/25/2024 8:18 AM EDT documented in this encounter Discharge Instructions * Discharge Instructions* Dariana Hoffman RN - 03/25/2024 9:43 AM EDT Upper GI Endoscopy: What to Expect at Home Your Recovery You will be able to go home after your doctor or nurse checks to make sure you are not having any problems. You may have to stay overnight if you had treatment during the test. You may have a sore throat fora day or two after the test. This care sheet gives you a general idea about what to expect after the test. How can you care for yourself at home? Activity Rest when you feel tired. You can do your normal activities when it feels okay to do so. Diet Follow your doctor's directions for eating. Unless your doctor has told you not to, drink plenty of fluids. This helps to replace the fluids that were lost during the prep. Do not drink alcohol. Medicines Your doctor will tell you if and when you can restart your medicines. He or she will also give you instructions about taking any new medicines. If you take blood thinners, such as warfarin (Coumadin), clopidogrel (Plavix), or aspirin, be sure to talk to your doctor. He or she will tell you if and when to start taking those medicines again. Make sure that you understand exactly what your doctor wants you to do. If polyps were removed or a biopsy was done during the test, your doctor may tell you not to take aspirin or other anti-inflammatory medicines for a few days. These include ibuprofen (Advil, Motrin) and naproxen (Aleve). If you have a sore throat the day after the procedure, use an xrbi-tkx-svmqrjf spray to numb your throat. Sucking on throat lozenges and gargling with warm salt water may also help relieve your symptoms. Other instructions For your safety, do not drive or operate machinery until the medicine wears off and you can think clearly. Your doctor may tell you not to drive or operate machinery until the day after your test. Do not sign legal documents or make major decisions until the medicine wears off and you can think clearly. The anesthesia can make it hard for you to fully understand what you are agreeing to. Additional Information for Sedation Patients For patients who received sedation: You may have received medications before and/or during your procedure which effects your judgement and reaction time. Do not drive, operate machinery, drink alcoholic beverages or make important decisions for 24 hours. Be careful on stairs as you may be unsteady on your feet. You may eat a regular diet as tolerated. Do not smoke if you are alone. IV site: Slight redness or tenderness is normal, you can use a warm compress if you would like. If tenderness and/or redness increase or if foul drainage occurs, please contact your Doctor. Please call [phone] before 8pm Mon-Fri with problems, questions or concerns. If you call after 8pm or on weekends, call the Hospital at [phone] and ask to speak to the Compilation Clerk business continuity management director and the ground transportation operator will contact that person for you. When should you call for help? Call 161 anytime you think you may need emergency care. For example, call if: You passed out (lost consciousness). You pass maroon or bloody stools. You have trouble breathing. Call your doctor now or seek immediate medical care if: You have pain that does not get better after you take pain medicine. You are sick to your stomach or cannot drink fluids. You have new or worse belly pain. You have blood in your stools. You have a fever. You cannot pass stools or gas. Watch closely for changes in your health, and be sure to contact your doctor if you have any problems. Where can you learn more? [facility] View your After Visit Summary and more online at [email or web address] If you would like to provide feedback about your hospital experience, please call the Office of Patient and Family Relations at . If you have received this After Visit Summary in error, please immediately return it in person to the department, or notify the [facility] Privacy Office by calling toll free at between the hours of 8AM and 5PM to arrange for our retrieval of the documents at no cost to you. Content Version: 12.2 ?? 4793-2920 [employer]. Care instructions adapted under license by [facility]. If you have questions about a medical condition or this instruction, always ask your healthcare professional. [employer] disclaims any warranty or liability for your use of this information. documented in this encounter Medications at Time of Discharge Medication Sig Dispensed Refills Start Date End Date mometasone (NASONEX) 50 mcg/actuation Vickery, Non-Aerosol 1 spray by Nasal route 2 times daily as needed. sertraline (Zoloft) 50 mg Tablet Take 75 mg by mouth daily. 07/03/2022 aspirin EC 81 mg Tablet, Delayed Release (E.C.) Take 81 mg by mouth daily. fluticasone-umeclidin- vilanter (Trelegy Ellipta) 100-62.5-25 mcg Disk with Device Inhale 1 puff into the lungs daily. cholecalciferol, Vitamin D3, 2,000 unit Tablet Daily 08/05/2015 valACYclovir (Valtrex) 500 mg Tablet Take 500 mg by mouth 2 times daily as needed. 09/15/2015 clonazePAM (KLONOPIN) 0.5 mg Tablet Take 1 tablet by mouth 2 times daily as needed for Anxiety (or irritability). 14 tablet 01/14/2019 levothyroxine (SYNTHROID) 50 mcg Tablet Take 50 mcg by mouth daily. b complex vitamins Capsule Take 1 capsule by mouth daily. mupirocin (Bactroban) 2 % Ointment Apply topically daily with dressing change 22 g 03/05/2024 clobetasoL (Temovate) 0.05 % Ointment Apply topically 2 times daily. to affected area(s) 01/14/2024 albuteroL (Proventil, Ventolin) (2.5 mg/3 mL) (0.083 %) Solution for Nebulization INHALE THE CONTENTS OF ONE VIAL VIA NEBULIZER FOUR TIMES A DAY NEEDED FOR SHORTNESS OF BREATH OR WHEEZING 11/04/2023 triamcinolone (Kenalog) 0.1 % Cream Apply topically 2 times daily. To itchy spots on trunk and extremities for up to 14 days per month. 454 g 1 01/24/2024 olopatadine (Patanol) 0.1 % Drops 1 drop 2 times daily. 2023 prednisoLONE acetate (Pred-Forte) 1 % Drops, Suspension INSTILL ONE DROP IN EACH EYE EVERY FOUR TIMES A DAY FOR 4 DAYS; THEN ONE DROP IN BOTH EYES THREE TIMES A DAY FOR 3 DAYS; THEN ONE DROP TWICE 09/25/2023 03/30/2024 documented as of this encounter H&P Notes * Kenney Linares MD - 03/25/2024 7:59 AM EDT Patient Name: Isaura Arellano Patient Age: 73 y.o. Birthdate: 1950 Admit date: 03/25/2024 Attending Physician: Kenney Linares MD Gastroenterology and Hepatology Pre-Procedure History and Physical Exam Procedure: EGD: Indication: h/o gastric/duodenal adenoma with high grade dysplasia; surveillance Patient Active Problem List Diagnosis Code Non-small cell carcinoma of left lung, stage 1 C34.92 Chronic depression F32.A Hypertension I10 Lacunar infarction I63.81 Major depressive disorder F32.9 Pain in joint involving pelvic region and thigh M25.559 Postconcussion syndrome F07.81 Functional memory problem R41.3 Unilateral complete paralysis of vocal cord J38.01 Tinnitus H93.19 Attention deficit disorder F98.8 Hypothyroidism E03.9 Adductor tendinitis of right hip M76.891 Primary osteoarthritis of right hip M16.11 Sensorineural hearing loss (SNHL) of both ears H90.3 Episodic cluster headache, not intractable G44.019 History of migraine Z86.69 Chest pain R07.9 EXAM: HEENT: Airway examined, oropharynx clear Mallampati Score: I (soft palate, uvula, fauces, tonsillar pillars visible) LUNGS: Clear to auscultation HEART: Regular rate and rhythm, normal S1, S2 ABDOMEN: Normal bowel sounds, soft, non tender, non distended, A/P Proceed with the planned endoscopic procedure. ASA 2 - Patient with mild systemic disease with no functional limitations Sedation Plan: moderate (conscious sedation) Risks and benefits of the procedure explained to the patient. Consent signed. documented in this encounter Plan of Treatment Upcoming Encounters Date Type Department Care Team (Late st Contact Info) Description 09/01/2024 4:30 PM EDT Office Visit Dermatology at [facility] [address] [place] [address] Ruma Echavarria MD [facility] DR ABDIRAH[place] [address] documented as of this encounter Procedures Procedure Name Priority Date/Time Associated Diagnosis Comments SPECIMEN TO PATHOLOGY Routine 03/25/2024 9:38 AM EDT SURGICAL PATHOLOGY REPORT Routine 03/25/2024 9:34 AM EDT Upper Gi Endoscopy, Biopsy ([id number]) 03/25/2024 9:16 AM EDT 18 month UPPER GI ENDOSCOPY Routine 03/25/2024 7: 05 AM EDT documented in this encounter Results * Specimen to Pathology (03/25/2024 9:38 AM EDT) AP Specimen 03/25/2024 9:38 AM EDT 03/25/2024 9:38 AM EDT Narrative [facility] - 03/25/2024 9:38 AM EDT Specimen requisition ordered. ??Separate Pathology report to follow Kenney Linares MD PATHOLOGY/CYTOLOGY O RDERABLES [facility] [place] [address] * Surgical Pathology Report (03/25/2024 9:34 AM EDT) Final Diagnosis [id number] ? Location: 4T; EA11; A The signing pathologist has (i) examined the relevant preparation(s) for the specimen(s) and (ii) rendered or confirmed the diagnosis(es). . ?Surgical Pathology DIAGNOSIS A - Duodenal bulb, biopsy (Multiple): - Consistent with hyperplastic polyp of the duodenum, negative for dysplasia. Electronically signed by: ?Dorothy CALVO PhD, Sheela Verified: ??04/06/2024 9:56 ?? Pathologist Performed at: ??-[facility] Dept. of Pathology, [place] [address] Bulk Tank Driver: Maricel Casanova MD, FCAP, ??CLIA Certificate: [id number] SPECIMEN(S) SUBMITTED A - duodenal bulb, biopsy (Multiple) CLINICAL INFORMATION 73-year-old female history of gastric/duodenal polyps SPECIMEN PROCESSING A - Labeled/Fixative : Duodenal bulb, formalin. Quantity/Size: Single, 0.4 cm. Tissue Description: Soft, collins-pink tissue. Sections/Process ing: Submitted in toto ??in 1 cassette labeled A1. ??ajw 04/06/2024 9:56 AM EDT [facility] GI Biopsy 03/25/2024 9:34 AM EDT 03/25/2024 9:34 AM EDT Kenney Linares MD PATHOLOGY/CYTOLOGY O SULLY [facility] [place] [address] * UPPER GI ENDOSCOPY (03/25/2024 7:05 AM EDT) UPPER GI ENDOSCOPY [facility] Endoscopy Procedure Date: 03/25/2024 7:05 AM ? Patient Name: Isaura Arellano ? Date of : 1950 ? Age: 73 ? Order #: [id number] ? Instrument Name: [id number] ? Procedure: ? Upper GI endoscopy Indications: ? 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 Providers: ? Kenney W. Winter, Ruth W. ? Jose, THAIS, Cruzito Myles Referring MD: ?Tamera Menapace-benjamin Medicines: ? Midazolam 5 mg IV, Fentanyl 150 ? micrograms IV, Benzocaine spray Complications: ? No immediate complications. Procedure: ? Pre-Anesthesia Assessment: ? - Prior to the procedure, a History ? and Physical was performed, and ? patient medications and allergies ? were reviewed. The patient is ? competent. The risks and benefits ? of the procedure and the sedation ? options and risks were discussed ? with the patient. All questions ? were answered and informed consent ? was obtained. Patient ? identification and proposed ? procedure were verified by the ? physician, the nurse and the ? chemical engineering technician in the pre-procedure ? area in the procedure room. Mental ? Status Examination: alert and ? oriented. Airway Examination: ? normal oropharyngeal airway and ? neck mobility. Respiratory ? Examination: clear to auscultation. ? CV Examination: normal. ? Prophylactic Antibiotics: The ? patient does not require ? prophylactic antibiotics. Prior ? Anticoagulants: The patient has ? taken no anticoagulant or ? antiplatelet agents. ASA Grade ? Assessment: II - A patient with ? mild systemic disease. After ? reviewing the risks and benefits, ? the patient was deemed in ? satisfactory condition to undergo ? the procedure. The anesthesia plan ? was to use moderate sedation / ? analgesia (conscious sedation). ? Immediately prior to administration ? of medications, the patient was ? re-assessed for adequacy to receive ? sedatives. The heart rate, ? respiratory rate, oxygen ? saturations, blood pressure, ? adequacy of pulmonary ventilation, ? and response to care were monitored ? throughout the procedure. The ? physical status of the patient was ? re-assessed after the procedure. ? The procedure, indications, ? benefits, risks and alternatives ? were explained to the patient. ? Specifically discussed were ? potential complications including, ? but not limited to, bleeding, ? perforation, infection, missing a ? cancer, and adverse medication ? reactions. The Endoscope was ? introduced through the mouth, and ? advanced to the third part of ? duodenum The upper GI endoscopy was ? accomplished without difficulty. ? The patient tolerated the procedure ? well. ? Findings: ? The examined esophagus was normal. ? The Z-line was regular and was found 40 cm from the ? incisors. ? The entire examined stomach was normal. ? Several 1-mm diameter areas of polypoid appearing ? mucosa in the duodenal bulb. Biopsied given history ? of adenomatous polyps. Suspect foveolar metaplasia ? (benign). ? 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 ? Moderate Sedation: ? Moderate (conscious) sedation was administered by the ? nurse and supervised by the endoscopist. The ? following parameters were monitored: oxygen ? saturation, heart rate, blood pressure, and response ? to care. ? I was present during the intraservice time as ? documented by the sedation RN. Impression: ?- Normal esophagus. ? - Z-line regular, 40 cm from the ? incisors. ? - Normal stomach. ? - Diminuitive duodenal bulb polyps, ? suspect benign etiology. Biopsied. ? - Stable appearing duodenal bulb ? polyp. Recommendation: ?- Patient has a contact number ? available for emergencies. The ? signs and symptoms of potential ? delayed complications were ? discussed with the patient. Return ? to normal activities tomorrow. ? Written discharge instructions were ? provided to the patient. ? - Await pathology ? - Repeat EGD for continued ? surveillance in 1-2 years pending ? pathology. ? Attending Participation: ? I personally performed the entire procedure. ? _ Kenney Linares, 03/25/2024 9:43:42 AM Number of Addenda: 0 Note Initiated On: 03/25/2024 7:05 AM PROVATION 03/25/2024 7:05 AM EDT Tamera Jensen [facility]ER[facility] PROVATION documented in this encounter Visit Diagnoses Not on filedocumented in this encounter Administered Medications Inactive Administered Medications - up to 3 most recent administrations Medication Order MAR Action Action Date Dose Rate Site benzocaine (Hurricane One) 20% spray (restricted to gary-procedural use) PRN, Starting on Sat03/25/24 at 0916, Until Sat03/25/24 at 1232, Intra-Operative (Intra-Procedure) Given 03/25/2024 9:16 AM EDT 1 spray fentaNYL (pf) (50 mcg/mL) multi-dose injection PRN, Starting on Sat03/25/24 at 0920, Until Sat03/25/24 at 1232, Intra-Operative (Intra-Procedure), Routine Given 03/25/2024 9:29 AM EDT 25 mcg Given 03/25/2024 9:26 AM EDT 25 mcg Given 03/25/2024 9:23 AM EDT 50 mcg midazolam (pf) (Versed) (1 mg/mL) multi-dose injection PRN, Starting on Sat03/25/24 at 0920, Until Sat03/25/24 at 1232, Intra-Operative (Intra-Procedure), Routine Given 03/25/2024 9:32 AM EDT 1 mg Given 03/25/2024 9:29 AM EDT 1 mg Given 03/25/2024 9:26 AM EDT 1 mg documented in this encounter Active and Recently Administered Medications Times are shown in EDT. PRN Medication Order 03/23/2024 03/24/2024 03/25/2024 benzocaine (Hurricane One) 20% spray (restricted to gary-procedural use) (CANCELED) PRN, Starting on Sat03/25/24 at 0916, Until Sat03/25/24 at 1232, Intra-Operative (Intra-Procedure) 0916 (Given - Provid er: Ruth Garcia RN) fentaNYL (pf) (50 mcg/mL) multi-dose injection (CANCELED) PRN, Starting on Sat03/25/24 at 0920, Until Sat03/25/24 at 1232, Intra-Operative (Intra-Procedure), Routine 0920 (Given - Provid er: Ruth Garcia RN)09 (Given - Provider: Ruth Garcia RN)09 (Given - Provider: Ruth Garcia RN)09 (Given - Provider: Ruth Garcia RN) midazolam (pf) (Versed) (1 mg/mL) multi-dose injection (CANCELED) PRN, Starting on Sat03/25/24 at 0920, Until Sat03/25/24 at 1232, Intra-Operative (Intra-Procedure), Routine 0920 (Given - Provid er: Ruth Garcia, THAIS)09 (Given - Provider: Ruth Garcia RN)09 (Given - Provider: Ruth Garcia, THAIS)09 (Given - Provider: Ruth Garcia RN)0932 (Given - Provider: Ruth Garcia RN) documented in this encounter Care Teams Library Circulation Clerk Relationship Specialty Start Date End Date Tamera Jensen [address] [place] [address] PCP - General Family Medicine 01/24/24 documented as of this encounter
--- OUTSIDE RECORDS SUMMARY | 2024-07-15 14:26 | XMS_ITS | Encounter Summary ---
Author Organization On [facility] Address [facility] [place] [address] Care Team Providers Care Reduction Plant Supervisor Name Role Phone Tamera Jensen Primary Care Provider [phone]- [phone] Encounter Details Date Type Department Care Team (Latest Contact Info) Description 02/23/2024 Travel Social History Tobacco Use Types Packs/Day [...] 4:30 PM EDT Office Visit Dermatology at [facility] [address] [place] [address] Ruma Echavarria MD [facility] [address] [address] documented as of this encounter Visit Diagnoses Not on filedocumented in this encounter Care Teams Reduction Plant Supervisor Relationship Specialty Start Date End Date Tamera Jensen [address] [place], [place] [id number] PCP - General Family Medicine 01/24/24 documented as of this encounter
--- OUTSIDE RECORDS SUMMARY | 2024-07-15 14:26 | XMS_ITS | Encounter Summary ---
Author Organization [facility] Address [facility] [place] [address] Care Team Providers Care Cinema Operator Name Role Phone Tamera Jensen Primary Care Provider [phone]- [phone] Encounter Details Date Type Department Care Team (Latest Contact Info) Description 06/09/2024 Travel Social History Tobacco Use Types Packs/Day [...] 4:30 PM EDT Office Visit Dermatology at [facility] [address] [address] Ruma Echavarria MD [facility] [address] [place] [address] documented as of this encounter Visit Diagnoses Not on filedocumented in this encounter Care Teams Cinema Operator Relationship Specialty Start Date End Date Tamera Jensen [address] [place] [address] PCP - General Family Medicine 01/24/24 documented as of this encounter
--- OUTSIDE RECORDS SUMMARY | 2024-07-15 14:26 | XMS_ITS | Encounter Summary ---
Author Organization [facility] Address [facility] [place] [address] Care Team Providers Care Wax Blender Name Role Phone Tamera Jensen Primary Care Provider +[phone] Reason for Visit * Reason Comments Skin Check * Consultation (Routine) - Closed Specialty Diagnoses / Procedures Referred By Bk de leon Referred To Contact Dermatology Diagnoses Lichen planus Ruma Echavarria MD [facility] [address] [place] [address] Milo El MD [address] [place] [address], [facility] [place] [address] Referral ID Status Reason Start Date Expiration Date V isits Requested Visits Authorized [id number] Closed Consult, Test & Treat 01/29/2024 01/28/2025 1 1 Encounter Details Date Type Department Care Team (Late st Contact Info) Description 01/28/2024 3:00 PM EST Office Visit Dermatology at [address] [address] Milo El MD [address] [place] [address], [facility] [place] [address] Lichen planus Social History Tobacco Use Types [...] Progress Notes * Milo El MD - 01/28/2024 3:00 PM EST Problem: Generalized lichen planus Isaura presents today for evaluation of her lichen planus initiation of phototherapy. She was seen by Ruma Echavarria, [facility] dermatology referred her to [facility] for narrowband UVB. She states that in the summer 2022 she first noted oral lesions were biopsied by ENT and found to be co nsistent with lichen planus. She then noted to have lichen sclerosus as well and then followed developed a generalized version of lichen planus over the torso and extremities. These are quite pruritic. She has expressed a proof preference to Dr. Ruma Farmer for phototherapy rather than acitretin orother oral therapies Physical examination reveals a pleasant 73-year-old woman who has a Linq legal pruritic flattopped papules with history of present widely on her arms and legs and torso. She has intraoral lacy lichenplanus as well. Genitalia were not examined today. Assessment plan: Lichen planus 1. Begin phototherapy at [facility] H3 times weekly with return to clinic here in 8 weeks 2. Consent form completed, patient information given on narrowband UVB phototherapy 3. Orders written and will be faxed to [facility] day surgery to initiate phototherapy 4. Patient opts to return to clinic here in [facility] dermatology for follow-up Right lateral calf lesion 1. Patient developed what sounds like a cutaneous horn on the right lateral calf and Dr. Echavarria biopsied this. 2. Biopsy results are still pending. Lichen sclerosus 1. Continue clobetasol cream for now to control symptoms 2. We will then recommend tapering frequency of application. CC: Ruma Echavarria MD documented in this encounter Plan of Treatment Upcoming Encounters Date Type Department Care Team (Late st Contact Info) Description 09/01/2024 4:30 PM EDT Office Visit Dermatology at [facility] [address] [place] [address] Ruma Echavarria MD [facility] DR ABDIR[address] [address] documented as of this encounter Visit Diagnoses Diagnosis Lichen planus documented in this encounter Care Teams Wax Blender Relationship Specialty Start Date End Date Tamera Jensen [address] [place] [address] PCP - General Family Medicine 01/24/24 documented as of this encounter
--- OUTSIDE RECORDS SUMMARY | 2024-07-15 14:26 | XMS_ITS | Encounter Summary ---
Author Organization [facility] Address [facility] [place] [address] Care Team Providers Care Psychological Operations Name Role Phone Tamera Jensen Primary Care Provider [phone]- [phone] Encounter Details Date Type Department Care Team (Latest Contact Info) Description 01/24/2024 Travel Social History Tobacco Use Types Packs/Day [...] 4:30 PM EDT Office Visit Dermatology at [facility] [address] [place] [address] Ruma Echavarria MD [facility] [address] ABDIRAHMAN AG[place] [address] documented as of this encounter Visit Diagnoses Not on filedocumented in this encounter Care Teams Psychological Operations Relationship Specialty Start Date End Date Tamera Jensen [address] [place], [place] [id number] PCP - General Family Medicine 01/24/24 documented as of this encounter
--- OUTSIDE RECORDS SUMMARY | 2024-07-15 14:26 | XMS_ITS | Encounter Summary ---
Author Organization [facility]ly [facility] [place] [address] Care Team Providers Care Adult Literacy Teacher Name Role Phone AashishJulianoTamera Primary Care Provider [phone] Reason for Visit * Consultation (Elective) - Authorized Specialty Diagnoses / Procedures Referred By Bk de leno Referred To Contact Dermatology Diagnoses Lichen planus Aurelia Bobby MD [address] [place] [address] Ruma Echavarria MD [facility] [address] ABDIR[place] [address] Referral ID Status Reason Start Date Expiration Date Visits Requested Visits Authorized [id number] Authorized Consult, Test & Treat PCP Updated and/or Approved 10/31/2023 10/30/2024 6 6 Encounter Details Date Type Department Care Team (Late st Contact Info) Description 01/24/2024 11:00 AM EST Office Visit Dermatology at [facility] [address] [place] [address] Ruma Echavarria MD [facility] DR ABDIRAH[place] [address] Neoplasm of unspecified behavior of bone, soft tissue, and skin; Lichen planus Social History Tobacco Use Types [...] as of this encounter Progress Notes * Ruma Echavarria MD - 01/24/2024 11:00 AM EST Images from the original note were not included. DEPARTMENT OF DERMATOLOGY Medical Dermatology Clinic Provider: RUMA ECHAVARRIA MD Patient's preferred name Isaura Preferred contact method for results [x]Phone [x]myD-H []Letter Detailed phone message OK? yes Are there any other people with whom we may discuss your care? Past Medical History Date, location, treatment Melanoma Dysplastic nevi SCC BCC AKs UV Exposure & Protection N Family History Details Melanoma NMSC Other relevant family history Social History Occupation: Pre-Procedure Screening Details Allergy to lidocaine, epinephrine, Dermabond, chlorhexidine, or adhesives no Bleeding disorder or blood thinners no Pacemaker, defibrillator, deep brain stimulator, cochlear implant no History of Present Illness: Isaura Arellano is a 73 y.o. Patient is referred to the clinic at [facility] of Aurelia Bobby for lichen planus. She has oral, vulvar, and skin lesions. Using clobetasol ointment twice daily to vulva with improvement in symptoms. Had flare in mouth and took a prednisone taper which helped; otherwise not treating except for meticulous oral care. Spots on body are generalized, but not overly bothersome. - Biopsies consistent with lichen planus for mouth and left giraldo x 2 done at [facility] Tender spot has developed on right lateral leg. Review of Systems: General: Feeling well. Skin: No other skin concerns. Medications: Reviewed in eD-H Allergies: Reviewed in eD-H Skin Examination: Full skin examination: Patient asked to undress to their comfort level. Verbalized that the provider's preference is that patient remove all clothing and that the provider will not examine areas patient elects to keep covered. Examination of the scalp, hair, head, face, ears, neck, chest, axillae, abdomen, back, buttocks, genitalia, and upper and lower extremities was normal with the exception ofthe findings below. Assessment/Plan # Neoplasm of unspecified behavior of skin - 0.6mm tender violaceous papule - DDx: hypertrophic LP r/o SCC - joint decision to pursue shave biopsy today to clarify nature of lesion - Shave biopsy procedure note: Location: right lateral leg The patient's consent was obtained. Risk of incomplete removal, scarring, bleeding, infection, and pain were reviewed. Alcohol preparation was used. Anesthesia was obtained with 1.0% lidocaine with epinephrine. A shave biopsy was obtained and the specimen was sent to pathology for histologic evaluation. Hemostasis was obtained with AlCl and/or electrocautery. Vaseline and bandage were applied. Wound care was reviewed. There were no complications; the patient tolerated the procedure well. #. 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 - Discussed diagnosis, increased risk of SCC, and how to monitor. Colleen stria on buccal mucosa, most prominent on the right near the lower molars - Continue using Clobetasol Ointment on the vulvar area as directed by client project coordinator - For mouth recommend clobetasol ointment applied to paper towel and left in place for 15 mintues as needed. For body: - Discussed light treatment in [place] (patient would like to pursue this option) - Discussed immunosuppressants Figure 1 Figure 2 Photo(s) taken and charted with patient's verbal consent. Other: N/A RTC: 6 months LP follow up []Note routed to elementary secretary []Recall placed in scheduling system []Appointment scheduled at checkout Scribe attestation: RICKEY Horan has performed the documentation for this encounter in the presence of and acting as a scribe for RUMA ECHAVARRIA MD. I performed the above scribed service and agree with the accuracy of the documentation in this encounter. Reviewed and signed by: RUMA ECHAVARRIA MD Dermatology [facility] documented in this encounter Plan of Treatment Upcoming Encounters Date Type Department Care Team (Late st Contact Info) Description 09/01/2024 4:30 PM EDT Office Visit Dermatology at [facility] [address] [place] [address] Ruma Echavarria MD [facility] [address] [place] [address] documented as of this encounter Procedures Procedure Name Priority Date/Time Associated Diagnosis Comments SURGICAL PATHOLOGY REPORT Routine 01/24/2024 2:29 PM EST SPECIMEN TO PATHOLOGY Routine 01/24/2024 2:29 PM EST Neoplasm of unspecified behavior of bone, soft tissue, and skin documented in this encounter Results * (ABNORMAL) Surgical Pathology Report (01/24/2024 2:29 PM EST) Final Diagnosis [id number] ? Location: [facility] The signing pathologist has (i) examined the relevant preparation(s) for the specimen(s) and (ii) rendered or confirmed the diagnosis(es). . ?Surgical Pathology DIAGNOSIS Right lateral leg, skin shave biopsy: - ??Invasive squamous cell carcinoma, well differentiated, ?? present at the deep specimen edge Electronically signed by: ?Benny Bhakta MD Verified: ??02/05/2024 11:49 ??Dermatopatholo gist Performed at: ??[facility], [place] [address] Crane Assembler: Maricel Casanova MD, FCAP, ??CLIA Certificate: [id number] DISCUSSION THIS RESULT REQUIRES PHYSICIAN/A.P.P. FOLLOW UP SPECIMEN(S) SUBMITTED A - right lateral leg, skin shave biopsy (1) CLINICAL INFORMATION 0.6 mm tender violaceous papule hypertrophic LP rule out SCC SPECIMEN PROCESSING A - Labeled/Fixative : Patient demographics, formalin. Quantity/Size: ??Single, 0.7 x 0.7 x 0.2 cm. Tissue Description: Shave of white skin with a 0.5 x 0.4 cm pink scaly papule. Sections/Process ing: Inked, trisected and entirely submitted in 1 cassette labeled A1. ??SM(A) 02/05/2024 11:49 AM EDT [facility] SPECIMEN FROM SKIN / Unknown 01/24/2024 2:29 PM EST 01/24/2024 2:29 PM EST Ruma Echavarria MD PATHOLOGY/CYTOLOGY O [place] Performing Organization Address City/[facility]/ZIP Co de Phone Number [facility] [place] [address] [facility] [address] * Specimen to Pathology (01/24/2024 2:29 PM EST) AP Specimen 01/24/2024 2:29 PM EST 01/24/2024 2:29 PM EST Narrative [facility] - 01/24/2024 2:29 PM EST Specimen requisition ordered. ??Separate Pathology report to follow Ruma Echavarria MD PATHOLOGY/CYTOLOGY [place] Performing Organization Address City/[facility]/ZIP Co de Phone Number [facility] [place] [address] documented in this encounter Visit Diagnoses Diagnosis Neoplasm of unspecified behavior of bone, soft tissue, and skin Lichen planus documented in this encounter Care Teams Adult Literacy Teacher Relationship Specialty Start Date End Date Tamera Jensen [address] [place] [address] PCP - General Family Medicine 01/24/24 documented as of this encounter
--- OUTSIDE RECORDS SUMMARY | 2024-07-15 14:26 | XMS_ITS | Encounter Summary ---
Author Organization [facility] [place] [address] Care Team Providers Care Supervisor Pigment Making Name Role Phone MehnazsuzannaChance Tamera Primary Care Provider Encounter Details Date Type Department Care Team (Late st Contact Info) Description 02/04/2024 Telephone Dermatology at [address] [address] Moraima Pereira LPN Social History Tobacco Use Types Packs/Day Years [...] on file documented as of this encounter Miscellaneous Notes * Telephone Encounter - Moraima Pereira LPN - 02/04/2024 2:16 PM EDT Received call from Renee at [facility] advising the patient will need to cut back to two daysa week due to staffing at this time. Also, she will have a male nurse 50% of the time. Notified patient she would have to cut back to twice a week instead of three times weekly due to staffing. She voiced understanding. Advised her Renee would be calling her to schedule. documented in this encounter Plan of Treatment Upcoming Encounters Date Type Department Care Team (Late st Contact Info) Description 09/01/2024 4:30 PM EDT Office Visit Dermatology at [facility] [address] [place] [address] Ruma Echavarria MD [facility] DR ABDIRAHMAN [place] [address] documented as of this encounter Visit Diagnoses Not on filedocumented in this encounter Care Teams Supervisor Pigment Making Relationship Specialty Start Date End Date Tamera Jensen [address] [place] [address] PCP - General Family Medicine 01/24/24 documented as of this encounter
--- OUTSIDE RECORDS SUMMARY | 2024-07-15 14:26 | XMS_ITS | Encounter Summary ---
Author Organization [facility] Address [facility] [place] [address] Care Team Providers Care Director Housekeeping Name Role Phone ChapinChanceTamera Primary Care Provider Reason for Visit * Reason Onset Date Comments Medication Refill 03/05/2024 Encounter Details Date Type Department Care Team (Late st Contact Info) Description 03/05/2024 Refill Dermatology at [facility] [address] [place] [address] Jen Coronado MD [facility] [place] [address] Social History Tobacco Use Types Packs/Day Years [...] encounter Miscellaneous Notes * Telephone Encounter - Kelley Edgar LPN - 03/05/2024 3:28 PM EDT As discussed on myd with Dr Coronado will start mupirocin to wound with dressing changes documented in this encounter Plan of Treatment Upcoming Encounters Date Type Department Care Team (Late st Contact Info) Description 09/01/2024 4:30 PM EDT Office Visit Dermatology at [facility] [address] [place] [address] Ruma Echavarria MD [facility] DR ABDIRAH[place] [address] documented as of this encounter Visit Diagnoses Not on filedocumented in this encounter Care Teams Director Housekeeping Relationship Specialty Start Date End Date Tamera Jensen [address] [place] [address] PCP - General Family Medicine 01/24/24 documented as of this encounter
--- OUTSIDE RECORDS SUMMARY | 2024-07-15 14:26 | XMS_ITS | Encounter Summary ---
Author Organization [facility] [place] [address] Care Team Providers Care Garbage Depot Worker Name Role Phone ChapinChanceTamera Primary Care Provider [phone] Reason for Visit * Reason Comments Follow-up Skin Check Encounter Details Date Type Department Care Team (Late st Contact Info) Description 03/30/2024 4:00 PM EDT Office Visit Dermatology at [address] [address] Milo El MD [address] [place] [address], [facility] [place] [address] Squamous cell carcinoma of skin; Lichen planus Social History Tobacco Use [...] Progress Notes * Milo El MD - 03/30/2024 4:00 PM EDT Problem: 1. Follow-up lichen planus on NVR H narrowband [facility] 2. Lichen sclerosus utilizing clobetasol cream Isaura follows up for her 2-month check on her lichen planus. Patient states that she has had 11 treatments. After the last 1 she was a little bit pink and borderline burned on her back she states. Physical examination is a pleasant 73-year-old woman who has excellent healing of the SCC treatmentsite on her right lateral calf. Her torso is clear but she has areas of healing lichen planus 2 on the lower extremities bilaterally with postinflammatory hyperpigmentation and mild inflammation still. She has no intraoral lichen planus. Assessment plan: Lichen planus receiving phototherapy 1. Patient status post 11 treatments twice weekly 2. Continue present treatments and return to clinic in 2 months. 3. Last treatment with some posttreatment erythema on her back. Will write new orders suggesting that we reduced to the last tolerated dosing level and maintain this for the next 2-2 and half months. Benign skin examination 1. Patient reassured about her benign skin examination SCCA bilateral calf right lateral calf 1. Post shave C&D by Dr. Echavarria 2. Site has now healed well 3. May discontinue wound care instructions CC: Tamera Jensen APRN documented in this encounter Plan of Treatment Upcoming Encounters Date Type Department Care Team (Late st Contact Info) Description 09/01/2024 4:30 PM EDT Office Visit Dermatology at [address] [address] Ruma Echavarria MD [facility] DR ABDIRAH[place] [address] documented as of this encounter Visit Diagnoses Diagnosis Squamous cell carcinoma of skin Squamous cell carcinoma of skin, site unspecified Lichen planus documented in this encounter Care Teams Garbage Depot Worker Relationship Specialty Start Date End Date Tamera Jensen [address] [place] [address] PCP - General Family Medicine 01/24/24 documented as of this encounter
--- OUTSIDE RECORDS SUMMARY | 2024-07-15 14:26 | XMS_ITS | Encounter Summary ---
Author Organization [facility] [place] [address] Care Team Providers Care Superintendent Of Schools Name Role Phone MehnazsuzannaChance Tamera Primary Care Provider [phone]- [phone] Encounter Details Date Type Department Care Team (Late st Contact Info) Description 02/24/2024 4:00 PM EDT Office Visit Dermatology at [facility] [address] [place] [address] Ruma Echavarria MD [facility] [place] [address] Squamous cell carcinoma of skin; Lichen planus [...] Progress Notes * Ruma Echavarria MD - 02/24/2024 4:00 PM EDT Images from the original note were not included. DEPARTMENT OF DERMATOLOGY Medical Dermatology Clinic Provider: RUMA ECHAVARRIA MD Patient's preferred name Isaura Preferred contact method for results [x]Phone [x]myD-H []Letter Detailed phone message OK? Yes Are there any other people with whom we may discuss your care? Dr. El & PCP Past Medical History Date, location, treatment Melanoma No Dysplastic nevi No SCC 01/24/2024: right lateral calf, SCC, s/p ED&C 02/24/2024 BCC N AKs UV Exposure & Protection + history of blistering sunburn Other relevant past medical history Family History Details Melanoma N NMSC N Other relevant family history N Social History Occupation: Hobbies: Other: Pre-Procedure Questions Details Allergy to lidocaine, epinephrine, Dermabond, chlorhexidine, or adhesives No Bleeding disorder or blood thinners No Pacemaker, defibrillator, deep brain stimulator, cochlear implant No History of Present Illness: Isaura Arellano is a 73 y.o. Patient returns to clinic today for an ED&C on the right lateral leg. Last visit at Dermatology: 01/24/2024 Last visit with this provider: 01/24/2024 Medications: Reviewed in eD-H Allergies: Reviewed in eD-H Skin Examination: Focused skin examination of the bilateral lower extremities was normal with the exception of the findings below. Assessment/Plan #. Biopsy-Proven Invasive Well-differentiated Squamous Cell Carcinoma arising in association with LP- 0.7 cm healing biopsy site on the right lateral leg. - Reviewed pathology and ED&C procedure with patient. [place] decision to proceed with ED&C today. - Patient denies allergies to lidocaine and epinephrine. - Patient denies having a pacemaker or defibrillator. Procedure: Destruction of lesion by electrodesiccation and curettage (ED&C) Location: As noted above. Discussed indications and expectations including risks and benefits. Verbal consent obtained. Skin prepped with alcohol. Local anesthesia with 1% xylocaine, 1/100,000 epinephrine. The entire lesion plus a small margin was treated. Post- curettage defect size: 1 cm. There were no complications; patient tolerated the procedure well. Wound dressed. Expectations (including discomfort management) and wound care reviewed. #. Vulvar Lichen Planus/Cutaneous & Oral Lichen Planus - scattered violaceous polygonal papulesand plaques generalized on body. - No examination of vulva or full body today, only bilateral lower extremities - Discussed diagnosis, increased risk of SCC, and how to monitor. - Continue using Clobetasol Ointment on the vulvar area as directed by director school of nursing - For mouth recommend clobetasol ointment applied to paper towel and left in place for 15 mintues as needed. For body: - Continue light treatment in [place] Figure 1 Photo(s) taken and charted with patient's verbal consent. Other: N/A RTC: 6 months for vulvar / LP follow up [x]Note routed to paralegal legal secretary []Recall placed in scheduling system []Appointment scheduled at checkout Scribe attestation: Vijaya Pennington CMA has performed the documentation for this encounter in the presence of and acting as a scribe for RUMA ECHAVARRIA MD. I performed the above scribed service and agree with the accuracy of the documentation in this encounter. Reviewed and signed by: RUMA ECHAVARRIA MD Dermatology [facility] documented in this encounter Plan of Treatment Upcoming Encounters Date Type Department Care Team (Late st Contact Info) Description 09/01/2024 4:30 PM EDT Office Visit Dermatology at [address] [address] Ruma Echavarria MD [facility] [address] ABDIRAHMAN [place] [address] documented as of this encounter Visit Diagnoses Diagnosis Squamous cell carcinoma of skin Squamous cell carcinoma of skin, site unspecified Lichen planus documented in this encounter Care Teams Superintendent Of Schools Relationship Specialty Start Date End Date Tamera Jensen [address] [place] [address] PCP - General Family Medicine 01/24/24 documented as of this encounter
--- OUTSIDE RECORDS SUMMARY | 2024-07-15 14:26 | XMS_ITS | Clinical Summary ---
Author Organization [facility] Address [facility] [place] [address] Care Team Providers Care Landscape Engineer Name Role Phone Mikey Tamera Primary Care Provider Allergies Active Allergy Reactions Criticality Noted Date Comments Atorvastatin Calcium Medium 01/25/2023 Gabapentin High 06/21/2020 Other reaction(s): Made me crazy Alcaftadine Other (See Comments) 03/30/2024 Swelling and dranage Propofol High 06/21/2020 Other reaction(s): Other (See Comment) Rosuvastatin Calcium Medium 01/25/2023 Medications Medication Sig Dispensed Refills Start Date End Date Status b complex vitamins Capsule Take 1 capsule by mouth daily. Active levothyroxine (SYNTHROID) 50 mcg Tablet Take 50 mcg by mouth daily. Active clonazePAM (KLONOPIN) 0.5 mg Tablet Take 1 tablet by mouth 2 times daily as needed for Anxiety (or irritability). 14 tablet 01/14/2019 Active cholecalciferol, Vitamin D3, 2,000 unit Tablet Daily 08/05/2015 Active valACYclovir (Valtrex) 500 mg Tablet Take 500 mg by mouth 2 times daily as needed. 09/15/2015 Active fluticasone-umeclid in-vilanter (Trelegy Ellipta) 100-62.5-25 mcg Disk with Device Inhale 1 puff into the lungs daily. Active aspirin EC 81 mg Tablet, Delayed Release (E.C.) Take 81 mg by mouth daily. Active sertraline (Zoloft) 50 mg Tablet Take 75 mg by mouth daily. 07/03/2022 Active mometasone (NASONEX) 50 mcg/actuation [place], Non-Aerosol 1 spray by Nasal route 2 times daily as needed. Active triamcinolone (Kenalog) 0.1 % Cream Apply topically 2 times daily. To itchy spots on trunk and extremities for up to 14 days per month. 454 g 1 01/24/2024 Active clobetasoL (Temovate) 0.05 % Ointment Apply topically 2 times daily. to affected area(s) 01/14/2024 Active albuteroL (Proventil, Ventolin) (2.5 mg/3 mL) (0.083 %) Solution for Nebulization INHALE THE CONTENTS OF ONE VIAL VIA NEBULIZER FOUR TIMES A DAY NEEDED FOR SHORTNESS OF BREATH OR WHEEZING 11/04/2023 Active mupirocin (Bactroban) 2 % Ointment Apply topically daily with dressing change 22 g 03/05/2024 Active estradioL (ESTRACE) 0.01 % (0.1 mg/gram) Cream INSERT 1 APPLICATORFUL VAGINALLY DAILY 06/02/2024 Active lidocaine (Xylocaine) 2 % Solution Apply a small amount to left nostril as needed for cluster headache 100 mL 06/22/2024 Active Active Problems Problem Noted Date Diagnosed Date Chest pain 09/09/2023 Overview (09/09/2023): 06/2021: Coronary Lumenography: non-obstructive disease 05/2021: Coronary Angiography: CAD-RADS 3, CACS 1767 04/2021 ExNST: 11 minutes, ST-D, no perfusion deficit Episodic cluster headache, not intractable 09/06 History of migraine 09/06/2023 Adductor tendinitis of right hip 07/17/2023 Primary osteoarthritis of right hip 07/17/2023 Sensorineural hearing loss (SNHL) of both ears 0 07/17/2023 Major depressive disorder 01/01/2019 Hypothyroidism 07/19/2017 Attention deficit disorder 09/06/2016 Pain in joint involving pelvic region and thigh 03/12/2016 Postconcussion syndrome 08/03/2015 Functional memory problem 04/21/2015 Unilateral complete paralysis of vocal cord 09/26 Hypertension 09/09/2014 Lacunar infarction 09/09/2014 Non-small cell carcinoma of left lung, stage 1 0 08/09/2014 Overview (08/31/2014): Moderately differentiated adenocarcinoma, 1.8 cm, no LVI, positive visceral pleural invasion, no involved nodes (0/8). Tinnitus 05/13/2014 Chronic depression 10/24/1984 Resolved Problems Problem Noted Date Diagnosed Date Resolved Date Carpal tunnel syndrome of left wrist 07/17/2023 07/17/2023 Constipation 07/17/2023 09/09/2023 Family history of malignant neoplasm of colon in father 07/17/2023 09/09/2023 Hammer toe 07/17/2023 09/09/2023 History of carpal tunnel erik ector of right wrist 07/17/2023 07/17/2023 Noninflammatory disorder of cervix uteri, unspecified 07/17/2023 09/09/2023 History of total right hip replacement 03/21/2021 07/17/2023 Ganglion 01/09/2019 09/09/2023 Alcohol withdrawal 01/02/2019 Colon polyp 01/01/2019 07/17/2023 Arthralgia 07/14/2015 07/17/2023 Herpes simplex virus (HSV) infection 04/21/2015 07/17/2023 Adenocarcinoma 07/13/2014 07/17/2023 Abnormal auditory perception 03/02/2014 09/09/2023 Encounters Date Type Department Care Team Description 06/18/2024 Refill Neurology at [address] [address] Megan Dean PA 06/09/2024 4:30 PM EDT Office Visit Dermatology at [address] [address] Milo El MD Lichen planus 06/09/2024 Travel from Last 3 Months Immunizations Name Administration Dates Next Due TD Adult 11/12/2005 Social History Tobacco Use Types Packs/Day Years [...] on file Sexual Orientation Not on file Last Filed Vital Signs Vital Sign Reading Time Taken Comments Blood Pressure 114/77 03/25/2024 10:00 AM EDT Pulse 59 03/25/2024 9:35 AM EDT Temperature 36.7 ??C (98.1 ??F) 09/04/2023 10:32 AM E DT Respiratory Rate 18 03/25/2024 10:10 AM EDT Oxygen Saturation 94% 03/25/2024 10:10 AM EDT Inhaled Oxygen Concentration - - Weight 59 kg (130 lb) 03/25/2024 8:18 AM EDT Height 162.6 cm (5' 4) 03/25/2024 8:18 AM EDT Body Mass Index 22.31 03/25/2024 8:18 AM EDT Plan of Treatment Upcoming Encounters Date Type Department Care Team (Late st Contact Info) Description 09/01/2024 4:30 PM EDT Office Visit Dermatology at [facility] [address] [place] [address] Ruma Echavarria MD [facility] [address] ABDIRAH[place] [address] Health Maintenance Due Date Last Done Comments CT Colonography 1950 FIT DNA 1950 FIT 1950 Sigmoidoscopy 1950 Hepatitis C Screening 1970 Tdap adult 1971 Breast Cancer Share Decision Needed 1992 Zoster vaccine (1 of 2) 2002 Advance Directive 2007 Tetanus vaccine 11/12/2015 11/12/2005 Breast Cancer screening 11/16/2016 11/16/2014, 10/31 Bone Density Scan 2017 Pneumoccocal Vaccine: 65+ (1 of 1 - PCV) 2017 Covid-19 Vaccine ( - 2022-24 season) 2023 Influenza (Flu) vaccine (1 o f 1 - Influenza standard series) 07/26/2024 Colonoscopy 08/23/2027 08/23/2022, 08/23/2022 Colorectal Cancer Screening 08/23/2027 Lipid Screening 01/26/2028 01/25/2023 Sigmoidoscopy (10 year) with FIT yearly 08/23/2032 0 08/23/2022, 08/23/2022 Procedures Procedure Name Priority Date/Time Associated Diagnosis Comments HC VENIPUNCTURE Routine 01/25/2023 12:55 PM EST Cerebrovascular accident (CVA), unspecified mechanism COLONOSCOPY Routine 08/23/2022 2:01 PM EDT MAMMO SCREENING CAD BILATERAL Routine 11/16/2014 8:16 AM EST from Last 3 Months or Most Recently Relevant to Health Maintenance Results * Lipid Panel (Reflex Direct LDL) (01/25/2023 12:55 PM EST) Pathologist [facility] Cholesterol, Total 247 mg/dL [facility] Comment: Lower Risk: <200 mg/dL Average Risk: 200-239 mg/dL Higher Risk: >ex=876 mg/dL Triglyceride 130 mg/dL [facility] Comment: Average Risk/Lower Risk: <150 mg/dL Borderline High Risk: 150-199 mg/dL High Risk: 200-499 mg/dL Very High Risk: >pl=368 mg/dL HDL Cholesterol 69 mg/dL [facility] Comment: Males: ?? Higher Risk: <40 mg/dL Females: ?? Higher Risk: <50 mg/dL LDL Cholesterol 152 mg/dL [facility] Comment: Lowest Risk: <100 mg/dL Lower Risk: 100-129 mg/dL Borderline High Risk: 130-159 mg/dL High Risk: 160-189 mg/dL Very High Risk: >qv=767 mg/dL Cholesterol/HDL Ratio 3.6 ratio [facility] Lipid Interpretation See Note [facility] Comment: Lipid management should be guided by a patient? s ASCVD risk, goals and preferences. ACC/AHA Guidelines recommend high intensity statin if clinical ASCVD or LDL greater than or equal to 190 mg/dL. http://tinyurl.com/KIN-OTD-Vlqpjctbz Adults aged 40-75 with LDL 70-189 mg/dL should have their 10 year ASCVD risk estimated with the ACC/AHA ASCVD risk truck repair service estimator http://tools.acc.org/MHEOF-Jgth-Cdgrsyrnz/ Statin should be discussed if risk greater than or equal to 7.5% in non-diabetics. With diabetes, moderate intensity statin is recommended if risk less than 7.5%, high intensity if risk greater than or equal to 7.5%. Annual lipid monitoring on statins is not necessary. Evaluate secondary causes of Triglycerides greater than 500 mg/dL or LDL greater than 190 mg/dL: See table 6 of ACC/AHA Guideline. Lifestyle modification is a critical component of ASCVD risk reduction. Blood 01/25/2023 12:5 5 PM EST 01/25/2023 1:02 PM EST Narrative Resulting Agency Comment Spec In Lab Salena Rodas MD CHEMISTRY ORDERABL ES Performing Organization Address City/State/[facility] Co de Phone Number [facility] [place] [address] * COLONOSCOPY (08/23/2022 2:01 PM EDT) COLONOSCOPY [facility] Endoscopy Procedure Date: 08/23/2022 2:01 PM ? Patient Name: Isaura Arellano ? Date of : 1950 ? Age: 72 ? Order #: [id number] ? Instrument Name: [id number] ? Procedure: ? Colonoscopy Indications: ? Rectal bleeding, Constipation Providers: ? Sung Gruber, Rodger Gonzalez, ? THAIS, April Mcmillan Referring : ?Aurelia Bobby MD Medicines: ? None, See the other procedure note ? for documentation of the ? administered medications Complications: ? No immediate complications. Procedure: ? [...] ? procedure were verified by the ? physician in the pre-procedure ? area. Mental Status Examination: ? alert and oriented. Airway ? Examination: normal oropharyngeal ? airway and neck mobility. ? Respiratory Examination: clear to ? auscultation. CV Examination: ? normal. Prophylactic Antibiotics: ? The patient does not require ? prophylactic antibiotics. [...] cancer, and adverse medication ? reactions. The patient was placed ? in the left lateral decubitus ? position, and a digital rectal exam ? was performed. The Colonoscope was ? inserted in the anus and under ? direct visualization, advanced to ? the terminal ileum. Careful ? inspection was made as the ? colonoscope was withdrawn. The ? patient tolerated the procedure ? well. The quality of the bowel ? preparation was good. ? Findings: ? The terminal ileum appeared normal. ? Two flat polyps were found in the cecum. The polyps ? were less than 1 mm in size. These polyps were ? removed with a cold snare. Resection and retrieval ? were complete. ? Internal hemorrhoids were found during retroflexion. ? Moderate Sedation: ? Moderate (conscious) sedation was administered by the ? endoscopy nurse and supervised by the endoscopist. ? The following parameters were monitored: oxygen ? saturation, heart rate, blood pressure, and response ? to care. Impression: ?- The examined portion of the ileum ? was normal. ? - Two less than 1 mm polyps in the ? cecum, removed with a cold snare. ? Resected and retrieved. ? - Internal hemorrhoids. Recommendation: ?- Discharge patient to home. ? - Resume previous diet. ? - Await pathology results. ? - Repeat colonoscopy in 5 years for ? surveillance based on pathology ? results. ? Attending Participation: ? I personally performed the entire procedure. ? Sung Gruber, 08/23/2022 2:51:04 PM Number of Addenda: 0 Note Initiated On: 08/23/2022 2:01 PM PROVATION 08/23/2022 2:01 PM EDT Aurelia Bobby MD GENERAL SURGICAL ORD ERABLES PROVATION * Mammo digital bilateral Screening with CAD (11/16/2014 8:16 AM EST) Anatomical Region Laterality Modality Breast Bilateral Mammography 11/16/2014 8:16 AM EST Narrative 11/17/2014 9:25 AM EST Reason for Exam: Screening ?? Technique: Craniocaudal (CC) and Medio-lateral Oblique (MLO) views of both breasts obtained with direct digital capture. ?? The exam was evaluated by CAD version 8.3.17. ?? Findings: ?? This is a negative mammogram (ACR Category 1). There is a stable fibroglandular pattern without significant change from prior studies. There is no mammographic evidence of cancer. The breasts are of scattered density. ?? CONCLUSION: This is a NEGATIVE mammogram (ACR Category 1). ?? Routine screening mammography is recommended with the frequency dependent upon the patients age and breast cancer risk factors. ?? A letter has been sent to this patient by the breast imaging center. Procedure Note Yovana Ro MD - 11/17/2014 Reason for Exam: Screening Technique: Craniocaudal (CC) and Medio-lateral Oblique (MLO) views of both breasts obtained with direct digital capture. The exam was evaluated by CAD version 8.3.17. Findings: This is a negative mammogram (ACR Category 1). There is a stablefibroglandular pattern without significant change from prior studies. There is no mammographic evidence of cancer. The breasts are of scattered density. CONCLUSION: This is a NEGATIVE mammogram (ACR Category 1). Routine screening mammography is recommended with the frequency dependentupon the patients age and breast cancer risk factors. A letter has been sent to this patient by the breast imaging center. Aurelia Bobby MD IMG MAMMO ORDERABLES from Last 3 Months or Most Recently Relevant to Health Maintenance Advance Directives * Attempt Cardiopulmonary Resuscitation - Inpatient (Latest Code Status on File) Date Activated Date Inactivated Comments 06/27/2021 3:26 PM 06/27/2021 9:44 PM Question Answer Comments Code Status decision made by: Patient * Full Code Date Activated Date Inactivated Comments 01/01/2019 11:41 PM 01/14/2019 8:10 PM Question Answer Comments Does patient have capacity to make decision: Yes Care Teams Landscape Engineer Relationship Specialty Start Date End Date Tamera Jensen [address] [place] [address] PCP - General Family Medicine 01/24/24
--- OUTSIDE RECORDS SUMMARY | 2024-07-15 14:26 | XMS_ITS | Encounter Summary ---
Author Organization [facility] Address [facility] [place] [address] Care Team Providers Care Coal Sampler Name Role Phone ChapinChanceTamera Primary Care Provider Encounter Details Date Type Department Care Team (Latest Contact Info) Description 03/25/2024 7:46 AM EDT - 03/25/2024 10:32 AM EDT Hospital Encounter [place] [address] Kenney Linares MD [facility] [place] [address] Discharge Disposition: Home Social History Tobacco Use Types Packs/Day Years [...] AM EDT Temperature - - Respiratory Rate 18 03/25/2024 10:10 AM EDT [...] the day after the procedure, use an uwyb-lwj-iyhftgx spray to numb your throat. Sucking on [...] occurs, please contact your Doctor. Please call [phone] before 8pm Mon-Fri with problems, questions or concerns. If you call after 8pm or on weekends, call the Hospital at [phone] and ask to speak to the [employer] aviation technical systems specialist and the pile driver operator helper will contact that person for you. When should you call for help? Call [phone] anytime you think you may need emergency [...] any problems. Where can you learn more? [facility]- View your After Visit Summary and more online at [email or web address] If you would like to provide feedback about your hospital experience, please call the Office of Patient and Family Relations at . If you have received this After Visit Summary in error, please immediately return it in person to the department, or notify the [facility] Privacy Office by calling toll free at between the hours of 8AM and 5PM to arrange for our retrieval of the documents at no cost to you. Content Version: 12.2 ?? [id number] [employer]. Care instructions adapted under license by [facility]. If you have questions about a medical condition or this instruction, always ask your healthcare professional. [employer] disclaims any warranty or liability for your use of this information. documented in this encounter Medications at Time of Discharge Medication Sig Dispensed Refills Start Date End Date mometasone (NASONEX) 50 mcg/actuation [place], Non-Aerosol 1 spray by Nasal route 2 [...] 4:30 PM EDT Office Visit Dermatology at [facility] [address] [place] [address] Ruma Echavarria MD [facility] DR ABDIRAHMAN [place] [address] documented as of this encounter Procedures Procedure Name Priority Date/Time Associated Diagnosis Comments SPECIMEN TO PATHOLOGY Routine 03/25/2024 9:38 AM EDT SURGICAL PATHOLOGY REPORT Routine 03/25/2024 9:34 AM EDT Upper Gi Endoscopy, Biopsy (22591) 03/25/2024 9:16 AM EDT 18 month UPPER GI ENDOSCOPY Routine 03/25/2024 7: 05 AM EDT documented in this encounter Results * Specimen to Pathology (03/25/2024 9:38 AM EDT) AP Specimen 03/25/2024 9:38 AM EDT 03/25/2024 9:38 AM EDT Narrative [facility] - 03/25/2024 9:38 AM EDT Specimen requisition ordered. ??Separate Pathology report to follow Kenney Linares MD PATHOLOGY/CYTOLOGY O [facility] [place] [address] * Surgical Pathology Report (03/25/2024 9:34 AM EDT) Final Diagnosis [id number] ? Location: 4T; EA11; A The signing pathologist has (i) examined the relevant preparation(s) for the specimen(s) and (ii) rendered or confirmed the diagnosis(es). . ?Surgical Pathology DIAGNOSIS A - Duodenal bulb, biopsy (Multiple): - Consistent with hyperplastic polyp of the duodenum, negative for dysplasia. Electronically signed by: ?Dorothy CALVO PhD, Sheela Verified: ??04/06/2024 9:56 ?? Pathologist Performed at: ??-[facility] [place], [place] [address] Reading Professor: Maricel Casanova MD, FCAP, ??CLIA Certificate: [id number] SPECIMEN(S) SUBMITTED A - duodenal bulb, biopsy (Multiple) CLINICAL INFORMATION 73-year-old female history of gastric/duodenal polyps SPECIMEN PROCESSING A - Labeled/Fixative : Duodenal bulb, formalin. Quantity/Size: Single, 0.4 cm. Tissue Description: Soft, collins-pink tissue. Sections/Process ing: Submitted in toto ??in 1 cassette labeled A1. ??ajw 04/06/2024 9:56 AM EDT [facility] GI Biopsy 03/25/2024 9:34 AM EDT 03/25/2024 9:34 AM EDT Kenney Linares MD PATHOLOGY/CYTOLOGY O [facility] [place] [address] * UPPER GI ENDOSCOPY (03/25/2024 7:05 AM EDT) UPPER GI ENDOSCOPY [facility] Endoscopy Procedure Date: 03/25/2024 7:05 AM ? Patient Name: Isaura Arellano ? Date of : 1950 ? Age: 73 ? Order #: [id number] ? Instrument Name: [id number]- [id number] ? Procedure: ? Upper GI endoscopy Indications: ? 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 Providers: ? Ruth Serrano ? Jose, THAIS, Cruzito Myles Referring MD: [...] ? physician, the nurse and the ? parts identification technician in the pre-procedure ? area in [...] Diagnoses Not on filedocumented in this encounter Active and Recently Administered [...] 0920 (Given - Provid er: Ruth Garcia RN)0923 (Given - Provider: Ruth Garcia RN)09 (Given - Provider: Ruth Garcia RN)0929 (Given - Provider: Ruth Garcia RN) midazolam (pf) (Versed) (1 mg/mL) multi-dose injection (CANCELED) PRN, Starting on Sat03/25/24 at 0920, Until Sat03/25/24 at 1232, Intra-Operative (Intra-Procedure), Routine 0920 (Given - Provid er: Ruth Garcia RN)0923 (Given - Provider: Ruth Garcia RN)09 (Given - Provider: Ruth Garcia RN)09 (Given - Provider: Ruth Garcia RN)0932 (Given - Provider: Ruth Garcia RN) documented in this encounter Care Teams Coal Sampler Relationship Specialty Start Date End Date Tamera Jensen [address] [place] [address] PCP - General Family Medicine 01/24/24 documented as of this encounter
--- OUTSIDE RECORDS SUMMARY | 2024-07-15 14:26 | XMS_ITS | Encounter Summary ---
Author Organization [facility] Address [facility] [place] [address] Care Team Providers Care Slip Cover Cutter Name Role Phone Tamera Jensen Primary Care Provider [phone] Encounter Details Date Type Department Care Team (Latest Contact Info) Description 01/27/2024 Travel Social History Tobacco Use Types Packs/Day [...] 4:30 PM EDT Office Visit Dermatology at [facility] [address] [place] [address] Ruma Echavarria MD [facility] DR ABDIRAH[place] [address] documented as of this encounter Visit Diagnoses Not on filedocumented in this encounter Care Teams Slip Cover Cutter Relationship Specialty Start Date End Date Tamera Jesnen [address] [place], [place] [id number] PCP - General Family Medicine 01/24/24 documented as of this encounter
--- OUTSIDE RECORDS SUMMARY | 2024-07-15 14:26 | XMS_ITS | Encounter Summary ---
Author Organization [facility] [place] [address] Care Team Providers Care Insurance Service Representative Name Role Phone AashishJulianoTamera Primary Care Provider [phone] Reason for Referral * Consultation (Routine) - Closed Specialty Diagnoses / Procedures Referred By Bk de leon Referred To Contact Dermatology Diagnoses Lichen planus Ruma Echavarria MD [facility] DR ABDIRAHMAN [place] [address] Milo El MD [address] [place] [address], [facility] [place] [address] Referral ID Status Reason Start Date Expiration Date V isits Requested Visits Authorized [id number] Closed Consult, Test & Treat 01/29/2024 01/28/2025 1 1 Encounter Details Date Type Department Care Team (Late st Contact Info) Description 01/27/2024 Orders Only Dermatology at [facility] [address] [place] [address] Ruma Echavarria MD [facility] DR ABDIRAHMAN [place] [address] Lichen planus Social History Tobacco Use Types [...] 4:30 PM EDT Office Visit Dermatology at [facility] [address] [place] [address] Ruma Echavarria MD [facility] [address] ABDIRAHMAN [place] [address] Scheduled Orders Name Type Priority Associated Diagnoses Orde r Schedule Actinotherapy (UVB) Dermatology Routine Lichen planus Three times a Week for 60 Occurrences starting 01/29/2024 until 01/26/2025 Scheduled Referrals Name Type Priority Associated Diagnoses Order Schedule Referral to Dermatology Outpatient Referral Routine Lichen planus Ordered: 01/29/2024 documented as of this encounter Visit Diagnoses Diagnosis Lichen planus documented in this encounter Care Teams Insurance Service Representative Relationship Specialty Start Date End Date Tamera Jensen [address] [place] [address] PCP - General Family Medicine 01/24/24 documented as of this encounter
--- OUTSIDE RECORDS SUMMARY | 2024-07-15 14:26 | XMS_ITS | Encounter Summary ---
Author Organization [facility] Address [facility] [place] [address] Care Team Providers Care Steam And Power Superintendent Name Role Phone ChapinChanceTamera Primary Care Provider [phone] Reason for Visit * Reason Onset Date Comments Medication Refill 06/18/2024 Medication ref ill Encounter Details Date Type Department Care Team (Late st Contact Info) Description 06/18/2024 Refill Neurology at [facility] [address] [place] [address] Megan Dean PA [facility] [place] [address] Social History Tobacco Use Types Packs/Day Years [...] encounter Miscellaneous Notes * Telephone Encounter - Cristin Bajwa - 06/21/2024 3:56 PM EDT Scheduling Instructions Provider: Kelsi Gonzales MD Visit Type: Neuro Re Establish Headache (paste FATOUMATA instructions or manually enter): Appt Note: angus former Quinten Pt - last seen 09/06/23 Additional Info Needed: next available * Telephone Encounter - Sonja Beltran RN - 06/18/2024 1:01 PM EDT RF request for lidocaine 2% for cluster CAMP Last RF 09/16 per JW MENDEL 09/06/23 JW RTC 6 mo- FUV/ANGUS not scheduled Per 06/04/23 encounter: Call made to Garo at [facility]. [phone]. Verbal order given for 2% viscous lidocaine compound. Will forward to provider for review and recommendation. Will forward to real estate legal secretary to ask for assistance with setting up ANGUS. THAIS Porter * Telephone Encounter - Domenica Cunningham - 06/18/2024 8:59 AM EDT Call Center / Commercial Sheet Metal Foreman Message Prescription Refill Request Clinical Commercial Sheet Metal Foreman message Provider patient sees in Clinic: Leonarda Shipley APRN Caller and relationship (if other than patient-full name): Isaura Hanh Arellano Call back Number: [phone] Ok to leave a message: yes Any issues needing to be addressed prior to medication refill? (ex: dose increase, not at pharmacy): N/A Name of Med: Viscous lidocaine Strength of Pills: 2% Dosing Directions: Apply to left nostril as needed for cluster headache How Patient is Currently Taking Medication: As directed 30 or 90 Day Supply: 90 Pharmacy: [facility] Last Appointment: 09/06/2023 Next Appointment: (IF CALL IS FROM PATIENT/FAMILY AND THERE IS NO FOLLOW UP SCHEDULED REVIEW CHART TO SEE WHEN APPOINTMENT IS NEEDED AND SCHEDULE BEFORE SENDING MESSAGE) Patient will call to coordinate appointment Is Patient out of Medication?: no This lead technical writer was unable to locate in medication list. Please see encounter 06/04/2023. Prescription was called in documented in this encounter Plan of Treatment Upcoming Encounters Date Type Department Care Team (Juanita lewis Contact Info) Description 09/01/2024 4:30 PM EDT Office Visit Dermatology at [facility] [address] [place] [address] Ruma Echavarria MD [facility] DR ABDIRAHMAN [place] [address] documented as of this encounter Visit Diagnoses Not on filedocumented in this encounter Care Teams Steam And Power Superintendent Relationship Specialty Start Date End Date Tamera Jensen [address] [place] [address] PCP - General Family Medicine 01/24/24 documented as of this encounter
--- OUTSIDE RECORDS SUMMARY | 2024-07-15 14:26 | XMS_ITS ---
Author Organization [facility] [place] [address] Care Team Providers Care Catering Truck Driver Name Role Phone iGlrcsuzannaChance Tamera Primary Care Provider Active Problems Problem Noted Date Diagnosed Date [...] nodes (0/8). Tinnitus 05/13/2014 Chronic depression 10/24/1984 Current Oncology Plans No current plan information found. Past Plans No past plan information found. Radiation Treatments * No radiation treatments are documented for this patient in [facility]. Treatments may have been administered in another system. Lifetime Dose Tracking * Chemical Lifetime Dose Automatic Entry Manual Entr y DLP (Dose Length Product) 465 mGy-cm 465 mGy-cm 0 mGy-cm CTDI (CT Dose Index) Min 4.94 mGy 4.94 mGy 0 m Gy CTDI (CT Dose Index) Max 23.26 mGy 23.26 mGy 0 m Gy Resolved Problems Problem Noted Date Diagnosed Date [...]
--- OUTSIDE RECORDS SUMMARY | 2024-07-15 14:27 | XMS_ITS | Encounter Summary ---
[place] [address] Care Team Providers Care Sliver Lapper Name Role Phone Aurelia Bobby MD Primary Care Provider [phone] Encounter Details Date Type Department Care Team (Latest Contact Info) Description 09/04/2023 9:04 AM EDT - 09/04/2023 11:59 PM EDT Hospital Encounter [place] [phone] Non-small cell carcinoma of left lung, stage 1 Discharge Disposition: Home Social History Tobacco Use [...] on file documented as of this encounter Medications at Time of Discharge Medication Sig Dispensed Refills Start Date End Date mometasone (NASONEX) 50 mcg/actuation [place], Non-Aerosol 1 spray by Nasal route 2 [...] Capsule Take 1 capsule by mouth daily. lidocaine (Xylocaine) 2 % Solution Apply a small amount on the joints for joint pain as needed. Make sure to wash hands after application. 100 mL 05/23/2023 09/06/2023 olopatadine (Patanol) 0.1 % Drops 1 drop 2 times daily. 2023 UNABLE TO FIND CBD tincture when gets headaches 09/09/2023 traMADoL (Ultram) 50 mg Tablet Take 1 tablet by mouth as needed. 01/28/2024 VITAMIN B COMPLEX-100 ORAL Take 100 Units by mouth daily. 03/31/2018 09/09/2023 albuterol (PROVENTIL HFA;VENTOLIN HFA;PROAIR) 90 mcg/actuation HFA Aerosol Inhaler Inhale 2 puffs into the lungs as needed for Wheezing. Use with spacer 01/28/2024 documented as of this encounter Plan of Treatment Upcoming Encounters Date Type Department Care Team (Late st Contact Info) Description 09/01/2024 4:30 PM EDT Office Visit Dermatology at [facility] [address] [place] [address] Ruma Echavarria MD [facility] DR [place] [address] documented as of this encounter Procedures Procedure Name Priority Date/Time Associated Diagnosis Comments HEMOGRAM STAT 09/04/2023 9:12 AM EDT Non-small cell carcinoma of left lung, stage 1 DIFFERENTIAL, AUTOMATED STAT 09/04/2023 9:12 AM EDT Non-small cell carcinoma of left lung, stage 1 CBC (WITH DIFF) STAT 09/04/2023 9:12 AM EDT Non-small cell carcinoma of left lung, stage 1 LACTATE DEHYDROGENASE STAT 09/04/2023 9:12 AM EDT Non-small cell carcinoma of left lung, stage 1 COMPREHENSIVE METABOLIC PANEL STAT 09/04/2023 9:12 AM EDT Non-small cell carcinoma of left lung, stage 1 documented in this encounter Results * Differential, Automated (09/04/2023 9:12 AM EDT) Neutrophil % 56.1 % [facility] Neutrophil Absolute 3.93 1.70 - 6.10 x10(3)/[facility] Lymph % 32.0 % [facility] Lymphocytes Abs 2.2 0.9 - 3.2 x10(3)/[facility] Monocyte % 8.1 % [facility] Monocyte Abs 0.6 0.3 - 0.9 x10(3)/[facility] Eos % 2.4 % [facility] Eosinophils Abs 0.2 0.0 - 0.4 x10(3)/[facility] Basophil % 1.1 % [facility] Baso Absolute 0.1 0.0 - 0.1 x10(3)/[facility] Immature Gran % 0.30 % [facility] Comment: Immature granulocytes(IG's)percentage and absolute count will include metamyelocytes, myelocytes, and promyelocytes. Blood smears from CBCs yielding IG's will be scanned manually for concordance. If this scan disagrees with the automated IG or if promyelocytes are noted, a manual differential will be performed. Immature Gran Absolute 0.02 0.00 - 0.04 x10(3)/[facility] Blood 09/04/2023 9:12 AM EDT 09/04/2023 9:18 AM EDT Elsie Cruz THERMOGRAPH OPERATOR HEMATOLOGY ORDERAB LES [facility] [address] * (ABNORMAL) Hemogram (09/04/2023 9:12 AM EDT) White Blood Cell 7.0 4.0 - 9.5 x10(3)/mc L [facility] Red Blood Cell 4.56 4.00 - 5.21 x10(6)/mc L [facility] Hemoglobin 14.4 11.7 - 15.5 g/dL [facility] Hematocrit 44.2 35.7 - 45.8 % [facility] Mean Cell Volume 96.9(H) 82.6 - 94.4 fL [facility] Mean Cell Hemoglobin 31.6 27.1 - 32.0 pg [facility] Mean Cell Hemoglobin Concentration 32.6 31.7 - 35.0 g/dL [facility] Platelet 267 145 - 357 x10(3)/mc L [facility] RDW Standard Deviation 52.5(H) 37.0 - 46.0 fL [facility] RDW coefficient of variation 14.7(H) 11.5 - 14.1 % [facility] Mean Platelet Volume 9.0 7.6 - 12.9 fL [facility] NRBC% auto 0.0 % [facility] NRBC Absolute 0.000 0.000 - 0.000 x10(3)/mc L [facility] Blood 09/04/2023 9:12 AM EDT 09/04/2023 9:18 AM EDT Elsie Cruz THERMOGRAPH OPERATOR HEMATOLOGY ORDERAB LES [facility] [address] * Lactate Dehydrogenase (09/04/2023 9:12 AM EDT) Lactate Dehydrogenase 146 110 - 220 unit/L [facility] Blood 09/04/2023 9:12 AM EDT 09/04/2023 9:18 AM EDT Elsie Cruz THERMOGRAPH OPERATOR CHEMISTRY ORDERABL ES [facility] [address] * (ABNORMAL) Comprehensive metabolic panel (non-fasting) (09/04/2023 9:12 AM EDT) Glucose 96 65 - 199 mg/dL [facility] Comment:Diabetes: >=200 mg/d L plus symptoms Blood Urea Nitrogen 15 8 - 18 mg/dL [facility] Creatinine 0.58(L) 0.70 - 1.20 mg/dL [facility] Sodium 140 135 - 145 mmol/L [facility] Potassium 4.3 3.5 - 5.0 mmol/L [facility] Comment: Please note: ??Patients with WBC >100,000 may have falsely elevated Potassium levels. ??For accurate Potassium quantification in these patients send serum separator tube (gold top) for subsequent determinations. ??Contact the Clinical Chemistry Laboratory if there are any questions. Chloride 106 98 - 107 mmol/L [facility] Carbon Dioxide 28 22 - 31 mmol/L [facility] Anion Gap 6 5 - 15 mmol/L [facility] Calcium 9.8 8.5 - 10.5 mg/dL [facility] Protein, Total 7.1 6.1 - 8.0 g/dL [facility] Albumin 4.7 3.2 - 5.2 g/dL [facility] Aspartate Aminotransferase 14 0 - 30 unit/L [facility] Alanine Aminotransferase 13 0 - 30 unit/L [facility] Alkaline Phosphatase 89 35 - 105 unit/L [facility] Bilirubin, Total 0.3 0.2 - 1.3 mg/dL [facility] Est Glomerular Filtration Rate 97 >=60 mL/min/1. 73 m?? [facility] Comment: This patient's estimated GFR was calculated using the 2020 CKD-EPI equation. The estimated GFR can vary from the measured GFR by up to 30% in the absence of rapidly changing kidney function. Assessment of the estimated GFR is not appropriate when creatinine concentrations are rapidly changing. For clinical situations in which a more precise estimate of GFR is necessary, consider alternative methods of GFR estimation such as a 24-hour urine creatinine clearance. Assignment of CKD stage 1-5 for patients with an eGFR near the transition point between stages may be based on clinical assessment of muscle mass and symptoms in addition to eGFR. Blood 09/04/2023 9:12 AM EDT 09/04/2023 9:18 AM EDT Elsie Cruz THERMOGRAPH OPERATOR CHEMISTRY ORDERABL ES [facility] [address] documented in this encounter Visit Diagnoses Diagnosis Non-small cell carcinoma of left lung, stage 1 documented in this encounter Care Teams Sliver Lapper Relationship Specialty Start Date End Date Aurelia Bobby MD [address] [place] [address] PCP - General 08/31/14 01/23/24 documented as of this encounter
--- OUTSIDE RECORDS SUMMARY | 2024-07-15 14:27 | XMS_ITS | Encounter Summary ---
Author Organization [facility] [place] [address] Care Team Providers Care Assisted Living Housekeeper Name Role Phone Aurelia Bobby MD Primary Care Provider [phone] Encounter Details Date Type Department Care Team (Late st Contact Info) Description 07/03/2023 Telephone Neurology at [address] [phone] Leonarda Shipley APRN [facility] [place] [address] Social History Tobacco Use Types Packs/Day Years [...] encounter Miscellaneous Notes * Telephone Encounter - Ramila Garcia RN - 07/03/2023 1:37 PM EDT Received a fax from [employer] that they will require updated information about patient's oxygen therapy documented in the chart from her upcoming appointment. [employer] has asked to include a qualifying diagnosis for patient's O2 need, with signs and symptoms, discussion of the patient's current oxygen use, physician recommendation for continued O2 usage and physician's signature and date.Follow up visit scheduled for 09/06/2023. documented in this encounter Plan of Treatment Upcoming Encounters Date Type Department Care Team (Late st Contact Info) Description 09/01/2024 4:30 PM EDT Office Visit Dermatology at [place] [address] [place] [address] Ruma Echavarria MD [facility] DR ABDIRAH[place] [address] documented as of this encounter Visit Diagnoses Not on filedocumented in this encounter Care Teams Assisted Living Housekeeper Relationship Specialty Start Date End Date Aurelia Bobby MD [address] [place] [address] [address] [facility] [address] [place] [address] PCP - General 08/31/14 01/23/24 documented as of this encounter
--- OUTSIDE RECORDS SUMMARY | 2024-07-15 14:27 | XMS_ITS | Encounter Summary ---
[place] [address] Care Team Providers Care Medical Review Coordinator Name Role Phone Aurelia Bobby MD Primary Care Provider [phone] Encounter Details Date Type Department Care Team (Late st Contact Info) Description 03/04/2023 Telephone Neurology at [address] [address] [place] [address] Social History Tobacco Use Types Packs/Day Years [...] encounter Miscellaneous Notes * Telephone Encounter - Pat Walters RN - 03/06/2023 12:14 PM EDT Call from Lashae at [facility]. She states they are unable to get a concentrator to supply the 15 liters needed for this patient. Additionally, they are unable to sustain filling individual tanks for this patient for the needed oxygen for cluster headache treatment. * Telephone Encounter - Yumiko Ames RN - 03/05/2023 12:05 PM EDT Telephone Call Call made to [facility] who states that they do not have a concentrator that will deliver 15 liters aminute of oxygen. I suggested the patient only needs a tank of oxygen, regulator and face mask. Lashae will look into this and if so, will work on getting the oxygen to Isaura. * Telephone Encounter - Yumiko Ames RN - 03/04/2023 4:53 PM EDT Copied from CRM #[id number]. Topic: Specialty Dept CRMs - Medication Issues >> Mar 04, 2023 4:48 PM Janeen Franco wrote: Medication Issues Specialist *Salena Nicole MD Relationship (if other than patient-full name): lashae arredondo Reason for call: Medication Issue (if symptom based used Triage Subtopic) Message/information for the nurse: can not fill order Name of Medication: Patients oxygen order Issue with the medication: Lashae from [facility] is calling to state they can not get the machine to fill the patients oxygen order. Please call to advise. documented in this encounter Plan of Treatment Upcoming Encounters Date Type Department Care Team (Late st Contact Info) Description 09/01/2024 4:30 PM EDT Office Visit Dermatology at [facility] [address] [place] [address] Ruma Echavarria MD [facility] DR [place] [address] documented as of this encounter Visit Diagnoses Not on filedocumented in this encounter Care Teams Medical Review Coordinator Relationship Specialty Start Date End Date Aurelia Bobby MD [address] [place] [address] PCP - General 08/31/14 01/23/24 documented as of this encounter
--- OUTSIDE RECORDS SUMMARY | 2024-07-15 14:27 | XMS_ITS | Encounter Summary ---
Author Organization [facility] Address [facility] [place] [address] Care Team Providers Care Home Performance Consultant Name Role Phone Aurelia Bobby MD Primary Care Provider [phone] Reason for Referral * Consultation (Elective) - Authorized Specialty Diagnoses / Procedures Referred By Bk de leon Referred To Contact Dermatology Diagnoses Lichen planus Aurelia Bobby MD [address] [place] [address] Ruma Echavarria MD [facility] DR ABDIRAHMAN [place] [address] Referral ID Status Reason Start Date Expiration Date Visits Requested Visits Authorized [id number] Authorized Consult, Test & Treat PCP Updated and/or Approved 10/31/2023 10/30/2024 6 6 Encounter Details Date Type Department Care Team ([facility] Contact Info) Description 10/31/2023 Transcribe Orders eDH Incoming Referrals [phone] Aurelia Bobby MD [address] [place], [place] [id number] Lichen planus Social History Tobacco Use Types [...] 4:30 PM EDT Office Visit Dermatology at [facility] [address] [place] [address] Ruma Echavarria MD [facility] DR ABDIRAHMAN [place] [address] Scheduled Referrals Name Type Priority Associated Diagnoses Order Schedule Referral to Dermatology Outpatient Referral Routine Lichen planus Ordered: 10/31/2023 documented as of this encounter Visit Diagnoses Diagnosis Lichen planus documented in this encounter Care Teams Home Performance Consultant Relationship Specialty Start Date End Date Aurelia Bobby MD [address] [place] [address] PCP - General 08/31/14 01/23/24 documented as of this encounter
--- OUTSIDE RECORDS SUMMARY | 2024-07-15 14:27 | XMS_ITS | Encounter Summary ---
[place] [address] Care Team Providers Care Oil Spreader Operator Name Role Phone Aurelia Bobby MD Primary Care Provider Reason for Visit * Reason Comments Prior Authorization Emgality (300mg dose ) 100 SOSY Encounter Details Date Type Department Care Team (Late st Contact Info) Description 08/30/2022 Specialty [place] [phone] Pat Rivas CPHT Social History Tobacco Use Types Packs/Day Years Used Date Smoking Tobacco: Former Cigarettes Q uit: 03/1988 Smokeless Tobacco: Never Comments:uses nicotene gum w hen I get stressed Alcohol Use Standard Drinks/Week Comments Yes 7 (1 standard drink = 0.6 oz pur e alcohol) Sex and Gender Information Value Date Recorded Sex Assigned at Female 06/08/2021 7:37 PM EDT Gender Identity Not on file Sexual Orientation Not on file documented as of this encounter Progress Notes * Pat Rivas - 08/30/2022 11:08 AM EDT [facility], Medication Prior Authorization Submission Patient: Isaura Arellano Patient : 1950 Patient Address: [address] [place] [phone] (home) Medication Name: EMGALITY 300 MG/3 ML (100 MG/ML X 3) SUBCUTANEOUS SYRINGE Medication ID: [id number] Subscriber Insurance: [email or web address] ([email or web address]) Subscriber Insurance Comment: Fax: Physician: JAYLEEN VALDEZ Physician Comment: Sent Via: [facility] [place]: EUGENE: [id number] Ref/Case/PA#: NA Medication Strength Frequency Requested: Emgality/300mg/30 Qty/Day Supply: 02/21 New Start: New to Therapy Diagnosis & ICD-10 Code: Chronic Migraines Patient Notified: Left Voicemessage Submission Notes: - PA SUBMITTED VIA [facility] [place]: BMPGEBRF. M FOR PATIENT IN REGARDS TO PA TIMELINE FRAME FOR EMGALITY. DOCUMENTING IN EDH. Pat Rivas 08/30/22 11:10 AM * Linda Nguyen - 08/30/2022 11:08 AM EDT [facility], Prior Authorization Approval Medication Name: EMGALITY 300 MG/3 ML (100 MG/ML X 3) SUBCUTANEOUS SYRINGE Medication ID: [id number] Approval Dates: 06/01/2022 to 08/30/2023 Insurance requirements/notes: None Other Notes: None Case/Reference #: [id number] Approval notification Received via: [facility] Copay: $ 472.93 Copay assistance: None Copay Notes: Insurance mandated Pharmacy: Fillable at [facility]: Yes Pharmacy staff will be reaching out to the patient to inform them of their medication's [facility]. If applicable, a pharmacist will speak with the patient to offer our specialty pharmacy services and to arrange delivery of their medication. Linda Nguyen 08/31/22 8:55 AM documented in this encounter Plan of Treatment Upcoming Encounters Date Type Department Care Team (Late st Contact Info) Description 09/01/2024 4:30 PM EDT Office Visit Dermatology at [facility] [address] [place] [address] Ruma Echavarria MD [facility] DR ABDIRAHMAN [place] [address] documented as of this encounter Visit Diagnoses Not on filedocumented in this encounter Care Teams Oil Spreader Operator Relationship Specialty Start Date End Date Aurelia Bobby MD [address] [place] [address] PCP - General 08/31/14 01/23/24 documented as of this encounter
--- OUTSIDE RECORDS SUMMARY | 2024-07-15 14:27 | XMS_ITS | Encounter Summary ---
Author Organization [facility] [place] [address] Care Team Providers Care House Sitter Name Role Phone Aurelia Bobby MD Primary Care Provider [phone] Encounter Details Date Type Department Care Team (Late st Contact Info) Description 03/12/2023 Telephone Neurology at [address] [address] [place] [address] Social History Tobacco Use Types Packs/Day Years [...] encounter Miscellaneous Notes * Telephone Encounter - Yumiko Ames RN - 03/12/2023 9:19 AM EDT Referral for home oxygen for Isaura Adan faxed to [facility]. Request from [employer] received. I called [facility] and spoke to Elizabeth. [employer] is now the mother company' of [employer]. Form completed for home Oxygen and faxed to [phone]. documented in this encounter Plan of Treatment Upcoming Encounters Date Type Department Care Team (Late st Contact Info) Description 09/01/2024 4:30 PM EDT Office Visit Dermatology at [place] [address] [place] [address] Ruma Echavarria MD [facility] DR ABDIRAHMAN [place] [address] documented as of this encounter Visit Diagnoses Not on filedocumented in this encounter Care Teams House Sitter Relationship Specialty Start Date End Date Aurelia Bobby MD [address] [place] [address] PCP - General 08/31/14 01/23/24 documented as of this encounter
--- OUTSIDE RECORDS SUMMARY | 2024-07-15 14:27 | XMS_ITS | Encounter Summary ---
Author Organization [facility] [place] [address] Care Team Providers Care Corporate Learning Consultant Name Role Phone Aurelia Bobby MD Primary Care Provider [phone] Encounter Details Date Type Department Care Team (Late Contact Info) Description 03/11/2023 Orders Only Neurology at [facility] [address] [place] [address] [place] [address] Episodic cluster headache, not intractable Social History Tobacco Use Types Packs/Day Years [...] 4:30 PM EDT Office Visit Dermatology at [facility] [address] [place] [address] Ruma Echavarria MD [facility] DR ABDIRAHMAN [place] [address] documented as of this encounter Visit Diagnoses Diagnosis Episodic cluster headache, not intractable Episodic cluster headache documented in this encounter Care Teams Corporate Learning Consultant Relationship Specialty Start Date End Date Aurelia Bobby MD [address] [place] [address] PCP - General 08/31/14 01/23/24 documented as of this encounter
--- OUTSIDE RECORDS SUMMARY | 2024-07-15 14:27 | XMS_ITS | Encounter Summary ---
[place] [address] Care Team Providers Care Direct Casting Operator Name Role Phone Aurelia Bobby MD Primary Care Provider [phone] Encounter Details Date Type Department Care Team (Late st Contact Info) Description 09/11/2022 Telephone Neurology at [address] [address] [place] [address] Social History Tobacco Use Types Packs/Day Years [...] Telephone Encounter - Yumiko Ames RN - 09/11/2022 1:10 PM EDT Home oxygen order, demographics and clinic note faxed to [facility] [phone]. documented in this encounter Plan of Treatment Upcoming Encounters Date Type Department Care Team (Late st Contact Info) Description 09/01/2024 4:30 PM EDT Office Visit Dermatology at [facility] [address] [place] [address] Ruma Echavarria MD [facility] DR ABD[place]AH[place] [address] documented as of this encounter Visit Diagnoses Not on filedocumented in this encounter Care Teams Direct Casting Operator Relationship Specialty Start Date End Date Aurelia Bobby MD [address] [place] [address] PCP - General 08/31/14 01/23/24 documented as of this encounter
--- OUTSIDE RECORDS SUMMARY | 2024-07-15 14:27 | XMS_ITS | Encounter Summary ---
Author Organization [facility] [place] [address] Care Team Providers Care Director Hedis Name Role Phone Aurelia Bobby MD Primary Care Provider [phone] Reason for Visit * Reason Comments Chest Pain Encounter Details Date Type Department Care Team (Late st Contact Info) Description 09/09/2023 1:20 PM EDT Office Visit Cardiology at [address] [address] Mat Cruz MD [facility] [place] [address] Chest pain, unspecified type Social History Tobacco Use Types Packs/Day Years [...] Sign Reading Time Taken Comments Blood Pressure 130/75 09/09/2023 1:36 PM EDT Pulse 61 09/09/2023 1:36 PM EDT per e cg Temperature - - Respiratory Rate - - Oxygen Saturation - - Inhaled Oxygen Concentration - - Weight 62.6 kg (138 lb) 09/09/2023 1:36 PM EDT Height 162.6 cm (5' 4) 09/09/2023 1:36 PM EDT Body Mass Index 23.69 09/09/2023 1:36 PM EDT documented in this encounter Progress Notes * Mat Cruz MD - 09/09/2023 1:20 PM EDT Images from the original note were not included. CARDIOLOGY NEW OUTPATIENT PRIMARY CARE PROVIDER: Aurelia Bobby MD PROBLEM LIST: Patient Active Problem List Diagnosis Major depressive disorder Chest pain 06/2021: Coronary Lumenography: non-obstructive disease 05/2021: Coronary Angiography: CAD-RADS 3, CACS 1767 04/2021 ExNST: 11 minutes, ST-D, no perfusion deficit Episodic cluster headache, not intractable History of migraine Adductor tendinitis of right hip Primary osteoarthritis of right hip Sensorineural hearing loss (SNHL) of both ears Hypothyroidism Attention deficit disorder Pain in joint involving pelvic region and thigh Postconcussion syndrome Functional memory problem Unilateral complete paralysis of vocal cord Hypertension Lacunar infarction Non-small cell carcinoma of left lung, stage 1 Moderately differentiated adenocarcinoma, 1.8 cm, no LVI, positive visceral pleural invasion, no involved nodes (0/8). Tinnitus Chronic depression MEDICATIONS: Current Outpatient Medications Medication Instructions albuterol (PROVENTIL HFA;VENTOLIN HFA;PROAIR) 90 mcg/actuation HFA Aerosol Inhaler 2 puffs, Inhalation, PRN, Use with spacer aspirin EC 81 mg, Oral, DAILY b complex vitamins Capsule 1 capsule, Oral, DAILY cholecalciferol, Vitamin D3, 2,000 unit Tablet Daily clonazePAM (KLONOPIN) 0.5 mg, Oral, 2 TIMES DAILY PRN ezetimibe (ZETIA) 10 mg, Oral, DAILY oxacwjqdghg-syftvbdso-vesbxsnv (Trelegy Ellipta) 100-62.5-25 mcg Disk with Device 1 puff, Inhalation, DAILY levothyroxine (SYNTHROID) 50 mcg, Oral, DAILY mometasone (NASONEX) 50 mcg/actuation [place], Non-Aerosol 1 spray, Nasal, 2 TIMES DAILY PRN olopatadine (Patanol) 0.1 % Drops 1 drop, 2 TIMES DAILY sertraline (ZOLOFT) 75 mg, Oral, DAILY traMADoL (Ultram) 50 mg Tablet 1 tablet, Oral, PRN valACYclovir (VALTREX) 500 mg, Oral, 2 TIMES DAILY PRN Subjective: Patient ID: Isaura Arellano is a 73 y.o. female. HPI: 73 F presents on referral from GP for chest pain. She has a history of such, with evaluation as perproblem list She is rather active, enjoying ~ 4 mile walks with her dogs, e-biking, etc, and is typically without symptom during such. However, in the summer she noticed when she was a peak exertion during bikinguphill she gathered jaw pain which dissipated with rest. She also had post-exertional lightheadedness, but recently this has not been a significant issue Has been tried on statin- intolerant to lipitor/crestor (diffuse myalgias) Objective: Patient Vitals for the past 24 hrs: Pulse BP 09/09/23 1336 61 130/75 Gen: pleasant female in NAD Cor: rrr, s1/s2 of nl character and amplitude, no m/r/g. Estimated RAP not elevated. Carotids without bruit. Pulm: CTAB. Normal diaphragmatic movement without use of accessory muscles EKG: nsr, nl ekg TTE: 06/2023: Unremarkable Assessment and Plan: Post-Exertional LH: This has reassuringly improved. Should it recur, would obtain rhythm monitoring. Unsure of cause (resting HR overshoot?), though perhaps relative intravascular hypovolemia plays arole Jaw/Chest Pain: Without recent issue. Activity as tolerated; if it recurs would obtain stress testing. Hyperlipidemia: Patient's CCS is very elevated. Since she cannot tolerate statin therapy, zetia is prescribed. RTC PRN Mat Cruz MD documented in this encounter Plan of Treatment Upcoming Encounters Date Type Department Care Team (Late st Contact Info) Description 09/01/2024 4:30 PM EDT Office Visit Dermatology at [facility] [address] [place] [address] Ruma Echavarria MD [facility] DR ABDIRAHMAN [place] [address] documented as of this encounter Visit Diagnoses Diagnosis Chest pain, unspecified type documented in this encounter Care Teams Director Hedis Relationship Specialty Start Date End Date Aurelia Bobby MD [address] [place] [address] PCP - General 08/31/14 01/23/24 documented as of this encounter
--- OUTSIDE RECORDS SUMMARY | 2024-07-15 14:27 | XMS_ITS | Encounter Summary ---
Author Organization [facility] Address [facility] [place] [address] Care Team Providers Care Door Furring Installer Name Role Phone Aurelia Bobby MD Primary Care Provider Encounter Details Date Type Department Care Team (Latest Contact Info) Description 01/25/2023 Travel Social History Tobacco Use Types Packs/Day [...] 4:30 PM EDT Office Visit Dermatology at [facility] [address] [place] [address] Ruma Echavarria MD [facility] [address] ABDIRAHMAN [place] [address] documented as of this encounter Visit Diagnoses Not on filedocumented in this encounter Care Teams Door Furring Installer Relationship Specialty Start Date End Date Aurelia Bobby MD [address] [place] [address] [address] [place] [address] PCP - General 08/31/14 01/23/24 documented as of this encounter
--- OUTSIDE RECORDS SUMMARY | 2024-07-15 14:27 | XMS_ITS | Encounter Summary ---
[place] [address] Care Team Providers Care Red Cross Worker Name Role Phone Aurelia Bobby MD Primary Care Provider [phone] Encounter Details Date Type Department Care Team (Late st Contact Info) Description 03/25/2023 Telephone Neurology at [address] [address] [place] [address] Social History Tobacco Use Types Packs/Day Years [...] encounter Miscellaneous Notes * Telephone Encounter - Salena Nicole MD - 03/25/2023 4:03 PM EDT I contacted patient's pulmnologist Cheryl Nicholas and left message at phone [phone]. I left VM stating that I had questions about safety of use of oxygen for her cluster. I also called patient today. She was counsed not to use the oxygen until we get clarify from her acetone button paster regarding oxygen (in cluster, 7-12 LPM for 15 minutes are typically used and she has 2-3attacks per day, but I am uncertain of the safety of this in someone with history of lung cancer and COPD). Patient has not tolerated verapamil in the past so that is not an option either. She was cou nseled she can have SPG blocks once per week if needed during active cycles. She had no further questions. documented in this encounter Plan of Treatment Upcoming Encounters Date Type Department Care Team (Late st Contact Info) Description 09/01/2024 4:30 PM EDT Office Visit Dermatology at [facility] [address] [place] [address] Ruma Echavarria MD [facility] DR ABDIRAHMAN [place] [address] documented as of this encounter Visit Diagnoses Not on filedocumented in this encounter Care Teams Red Cross Worker Relationship Specialty Start Date End Date Aurelia Bobby MD [address] [place] [address] [address] PCP - General 08/31/14 01/23/24 documented as of this encounter
--- OUTSIDE RECORDS SUMMARY | 2024-07-15 14:27 | XMS_ITS | Encounter Summary ---
Author Organization [facility] [place] [address] Care Team Providers Care Partner Manager Name Role Phone Aurelia Bobby MD Primary Care Provider [phone] Encounter Details Date Type Department Care Team (Late st Contact Info) Description 09/11/2022 Orders Only Neurology at [facility] [address] [place] [address] [place] [address] Episodic cluster headache, not intractable [...] 4:30 PM EDT Office Visit Dermatology at [facility] [address] [place] [address] Ruma Echavarria MD [facility] DR ABDIRAHMAN [place] [address] documented as of this encounter Visit Diagnoses Diagnosis Episodic cluster headache, not intractable Episodic cluster headache documented in this encounter Care Teams Partner Manager Relationship Specialty Start Date End Date Aurelia Bobby MD [address] [place] [address] PCP - General 08/31/14 01/23/24 documented as of this encounter
--- OUTSIDE RECORDS SUMMARY | 2024-07-15 14:27 | XMS_ITS | Encounter Summary ---
Author Organization [facility] [place] [address] Care Team Providers Care Human Resource Internship Name Role Phone Aurelia Bobby MD Primary Care Provider [phone] Reason for Visit * Reason Onset Date Comments Headache 06/04/2023 Encounter Details Date Type Department Care Team (Late st Contact Info) Description 06/04/2023 Telephone Neurology at [address] [phone] Ruma Duff APRN [facility] [place] [address] Headache Social History Tobacco Use Types Packs/Day Years [...] Telephone Encounter - Yumiko Ames RN - 06/04/2023 1:28 PM EDT Call made to Garo at [facility]. [phone]. Verbal order given for 2% viscous lidocaine compound. Patient is to apply to left nostril as needed for cluster headache per provider APRN. Garo Tang verbalized understanding. Patient will have follow up in Headache [facility] with provider. documented in this encounter Plan of Treatment Upcoming Encounters Date Type Department Care Team (Late st Contact Info) Description 09/01/2024 4:30 PM EDT Office Visit Dermatology at [facility] [address] [place] [address] Ruma Echavarria MD [facility] [place] [address] documented as of this encounter Visit Diagnoses Not on filedocumented in this encounter Care Teams Human Resource Internship Relationship Specialty Start Date End Date Aurelia Bobby MD [address] [place] [address] [address] [place] [address] PCP - General 08/31/14 01/23/24 documented as of this encounter
--- OUTSIDE RECORDS SUMMARY | 2024-07-15 14:27 | XMS_ITS | Encounter Summary ---
Author Organization [facility] Address [facility] [place] [address] Care Team Providers Care Porcelain Finish Sprayer Name Role Phone Aurelia Bobby MD Primary Care Provider [phone] Encounter Details Date Type Department Care Team (Latest Contact Info) Description 09/02/2023 Travel Social History Tobacco Use Types Packs/Day [...] 4:30 PM EDT Office Visit Dermatology at [facility] [address] [place] [address] Ruma Echavarria MD [facility] DR ABDIRAHMAN [place] [address] documented as of this encounter Visit Diagnoses Not on filedocumented in this encounter Care Teams Porcelain Finish Sprayer Relationship Specialty Start Date End Date Aurelia Bobby MD [address] [place] [address] [address] [place] [address] PCP - General 08/31/14 01/23/24 documented as of this encounter
--- OUTSIDE RECORDS SUMMARY | 2024-07-15 14:27 | XMS_ITS | Encounter Summary ---
Author Organization [facility] Address [facility] [place] [address] Care Team Providers Care Merchandise Clerk Name Role Phone Aurelia Bobby MD Primary Care Provider [phone] Encounter Details Date Type Department Care Team (Latest Contact Info) Description 09/06/2023 Travel Social History Tobacco Use Types Packs/Day [...] PM EDT Office Visit Dermatology at [facility] [address] [place] [address] Ruma Echavarria MD [facility] DR ABDIRAHMAN [place] [address] documented as of this encounter Visit Diagnoses Not on filedocumented in this encounter Care Teams Merchandise Clerk Relationship Specialty Start Date End Date Aurelia Bobby MD [address] [place] [address] [address] [place] [address] PCP - General 08/31/14 01/23/24 documented as of this encounter
--- OUTSIDE RECORDS SUMMARY | 2024-07-15 14:27 | XMS_ITS | Encounter Summary ---
[place] [address] Care Team Providers Care Senior Accountant Analyst Name Role Phone Aurelia Bobby MD Primary Care Provider [phone] Encounter Details Date Type Department Care Team (Latest Contact Info) Description 09/04/2022 9:45 AM EDT - 09/04/2022 11:59 PM EDT Hospital Encounter Hematology [place] [id number] Non-small cell carcinoma of left lung, stage 1; Concern for lung cancer metastatic to brain Discharge Disposition: Home Social History Tobacco Use [...] Sig Dispensed Refills Start Date End Date sertraline (Zoloft) 50 mg Tablet Take 75 mg by mouth daily. 07/03/2022 aspirin EC 81 mg Tablet, Delayed Release (E.C.) Take 81 mg by mouth daily. fluticasone-umeclidi n-vilanter (Trelegy Ellipta) 100-62.5-25 mcg Disk with Device [...] Capsule Take 1 capsule by mouth daily. traMADoL (Ultram) 50 mg Tablet Take 1 tablet by mouth as needed. 01/28/2024 VITAMIN B COMPLEX-100 ORAL Take 100 Units by mouth daily. 03/31/2018 09/09/2023 albuterol (PROVENTIL HFA;VENTOLIN HFA;PROAIR) 90 mcg/actuation HFA Aerosol Inhaler Inhale 2 puffs into the lungs as needed for Wheezing. Use with spacer 01/28/2024 galcanezumab-gnlm (Emgality Syringe) 300 mg/3 mL (100 mg/mL x 3) Syringe Inject 300 mg subcutaneously every 30 days. Until cluster cycle is complete 3 mL 11 08/29/2022 01/25/2023 fluticasone-umeclidi nium-vilanterol (Trelegy Ellipta) 100-62.5-25 mcg Daily 03/17/2021 01/25/2023 rosuvastatin (Crestor) 10 mg Tablet Take 10 mg by mouth daily. 01/25/2023 fluticasone-umeclidi n-vilanter (Trelegy Ellipta) 100-62.5-25 mcg Disk with Device Inhale 1 puff into the lungs daily. 01/25/2023 ibuprofen (Advil;Motrin) 200 mg Tablet Take 200 mg by mouth every 6 hours as needed for Pain. 01/25/2023 cholecalciferol, Vitamin D3, 25 mcg (1,000 unit) Capsule Take by mouth. 01/25 documented as of this encounter Plan of Treatment Upcoming Encounters Date Type Department Care Team (Late st Contact Info) Description 09/01/2024 4:30 PM EDT Office Visit Dermatology at [facility] [address] [place] [address] Ruma Echavarria MD [facility] [address] [address] documented as of this encounter Procedures Procedure Name Priority Date/Time Associated Diagnosis Comments HEMOGRAM STAT 09/04/2022 9:51 AM EDT Non-small cell carcinoma of left lung, stage 1 DIFFERENTIAL, AUTOMATED STAT 09/04/2022 9:51 AM EDT Non-small cell carcinoma of left lung, stage 1 CREATININE Routine 09/04/2022 9:51 AM EDT Concern for lung cancer metastatic to brain HC CBC,PLT & AUTO DIFF STAT 9:51 AM EDT Non-small cell carcinoma of left lung, stage 1 HC LACTIC DEHYDROGENASE STAT 09/04/2022 9:51 AM EDT Non-small cell carcinoma of left lung, stage 1 COMPREHENSIVE METABOLIC PANEL STAT 09/04/2022 9:51 AM EDT Non-small cell carcinoma of left lung, stage 1 documented in this encounter Results * Differential, Automated (09/04/2022 9:51 AM EDT) Neutrophil % 60.1 % [facility] Neutrophil Absolute 4.70 1.70 - 6.10 x10(3)/[facility] Lymph % 27.2 % [facility] Lymphocytes Abs 2.1 0.9 - 3.2 x10(3)/[facility] Monocyte % 9.5 % [facility] Monocyte Abs 0.7 0.3 - 0.9 x10(3)/[facility] Eos % 2.1 % [facility] Eosinophils Abs 0.2 0.0 - 0.4 x10(3)/[facility] Basophil % 0.8 % [facility] Baso Absolute 0.1 0.0 - 0.1 x10(3)/[facility] Immature Gran % 0.30 % [facility] Comment: Immature granulocytes(IG's)percentage and absolute count will include metamyelocytes, myelocytes, and promyelocytes. Blood smears from CBCs yielding IG's will be scanned manually for concordance. If this scan disagrees with the automated IG or if promyelocytes are noted, a manual differential will be performed. Immature Gran Absolute 0.02 0.00 - 0.04 x10(3)/[facility] Blood 09/04/2022 9:51 AM EDT 09/04/2022 10:03 AM EDT Narrative Resulting Agency Comment Spec In Lab Elsie Cruz FRONT DESK REPRESENTATIVE HEMATOLOGY ORDERAB LES Performing Organization Address City/State/[facility] Co de Phone Number [facility] [place] [address] * (ABNORMAL) Hemogram (09/04/2022 9:51 AM EDT) White Blood Cell 7.8 4.0 - 9.5 x10(3)/[facility] LABORATORY Red Blood Cell 4.66 4.00 - 5.21 x10(6)/[facility] Hemoglobin 14.7 11.7 - 15.5 g/dL [facility] Hematocrit 43.5 35.7 - 45.8 % [facility] Mean Cell Volume 93.3 82.6 - 94.4 fL [facility] Mean Cell Hemoglobin 31.5 27.1 - 32.0 pg [facility] Mean Cell Hemoglobin Concentration 33.8 31.7 - 35.0 g/dL [facility] Platelet 259 145 - 357 x10(3)/[facility] RDW Standard Deviation 47.7(H) 37.0 - 46.0 fL [facility] RDW coefficient of variation 13.8 11.5 - 14.1 % [facility] Mean Platelet Volume 9.0 7.6 - 12.9 fL [facility] NRBC% auto 0.0 % [facility] NRBC Absolute 0.000 0.000 - 0.000 x10(3)/mc L [facility] Blood 09/04/2022 9:51 AM EDT 09/04/2022 10:03 AM EDT Narrative Resulting Agency Comment Spec In Lab Elsie Cruz FRONT DESK REPRESENTATIVE HEMATOLOGY ORDERAB LES Performing Organization Address City/[facility]/ZIP Co de Phone Number [facility] [place] [address] * (ABNORMAL) Creatinine (09/04/2022 9:51 AM EDT) Creatinine 0.64(L) 0.70 - 1.20 mg/dL [facility] Est Glomerular Filtration Rate 95 >=60 mL/min/1. 73 m?? [facility] Comment: This patient's estimated GFR was [...] and symptoms in addition to eGFR. Blood 09/04/2022 9:51 AM EDT 09/04/2022 10:03 AM EDT Narrative Resulting Agency Comment Spec In Lab Salena Nicole MD CHEMISTRY ORDERABLES [facility] [place] [address] * (ABNORMAL) Comprehensive metabolic panel (non-fasting) (09/04/2022 9:51 AM EDT) Glucose 85 65 - 199 mg/dL [facility] Comment:Diabetes: >=200 mg/d L plus symptoms Blood Urea Nitrogen 14 8 - 18 mg/dL [facility] Creatinine 0.64(L) 0.70 - 1.20 mg/dL [facility] Sodium 142 135 - 145 mmol/L [facility] Potassium 4.1 3.5 - 5.0 mmol/L [facility] Comment: Please note: ??Patients with WBC >100,000 may have falsely elevated Potassium levels. ??For accurate Potassium quantification in these patients send serum separator tube (gold top) for subsequent determinations. ??Contact the Clinical Chemistry Laboratory if there are any questions. Chloride 105 98 - 107 mmol/L [facility] Carbon Dioxide 25 22 - 31 mmol/L [facility] Anion Gap 12 5 - 15 mmol/L [facility] Calcium 9.7 8.5 - 10.5 mg/dL [facility] Protein, Total 7.0 6.1 - 8.0 g/dL [facility] Albumin 4.6 3.2 - 5.2 g/dL [facility] Aspartate Aminotransferase 14 0 - 30 unit/L [facility] Alanine Aminotransferase 11 0 - 30 unit/L [facility] Alkaline Phosphatase 78 35 - 105 unit/L [facility] Bilirubin, Total 0.5 0.2 - 1.3 mg/dL [facility] Est Glomerular Filtration Rate 95 >=60 mL/min/1. 73 m?? [facility] Comment: This patient's estimated GFR was [...] and symptoms in addition to eGFR. Blood 09/04/2022 9:51 AM EDT 09/04/2022 10:03 AM EDT Narrative Resulting Agency Comment Spec In Lab Elsie Cruz FRONT DESK REPRESENTATIVE CHEMISTRY ORDERABL ES Performing Organization Address City/[facility]/ZIP Co de Phone Number [facility] [place] [address] * Lactate Dehydrogenase (09/04/2022 9:51 AM EDT) Lactate Dehydrogenase 151 110 - 220 unit/L [facility] Blood 09/04/2022 9:51 AM EDT 09/04/2022 10:03 AM EDT Narrative Resulting Agency Comment Spec In Lab Elsie Cruz FRONT DESK REPRESENTATIVE CHEMISTRY ORDERABL ES Performing Organization Address City/[facility]/ZIP Co de Phone Number [facility] [place] [address] documented in this encounter Visit Diagnoses Diagnosis Non-small cell carcinoma of left lung, stage 1 Concern for lung cancer metastatic to brain documented in this encounter Care Teams Senior Accountant Analyst Relationship Specialty Start Date End Date Aurelia Bobby MD [address] [place] [address] PCP - General 08/31/14 01/23/24 documented as of this encounter
--- OUTSIDE RECORDS SUMMARY | 2024-07-15 14:27 | XMS_ITS | Encounter Summary ---
Author Organization [facility] [place] [address] Care Team Providers Care Tobacco Stripper Name Role Phone Aurleia Bobby MD Primary Care Provider [phone] Reason for Visit * Consultation (Routine) - Closed Specialty Diagnoses / Procedures Referred By Bk de leon Referred To Contact Neurology Diagnoses Right thalamic stroke Stenosis of [place] [address] [facility] [address] [place] [address] Referral ID Status Reason Start Date Expiration Date V isits Requested Visits Authorized [id number] Closed Consult, Test & Treat 09/10/2022 09/10/2023 1 1 Encounter Details Date Type Department Care Team (Latest Contact Info) Description 01/25/2023 11:00 AM EST [place] [address] Salena Rodas MD [facility] [place] [address] Cerebrovascular accident (CVA), unspecified mechanism Social History Tobacco Use Types Packs/Day Years [...] Sign Reading Time Taken Comments Blood Pressure 138/76 01/25/2023 10:48 AM EST Pulse 67 01/25/2023 10:48 AM EST Temperature - - Respiratory Rate - - Oxygen Saturation - - Inhaled Oxygen Concentration - - Weight 60.3 kg (133 lb) 01/25/2023 10:4 8 AM EST on scale with shoes on Height 162.6 cm (5' 4) 01/25/2023 10:4 8 AM EST reported Body Mass Index 22.83 01/25/2023 10:48 AM EST documented in this encounter Progress Notes * Salena Rodas MD - 01/25/2023 11:00 AM EST [facility] Department [place] [address] t: [phone] / f: [phone] Date of Appointment: 01/25/2023 Patient: Isaura Arellano PCP: MD [place] [address] I have been asked to seeIsaura Arellano in consultation by Dr. Nicole for her/his c/o stroke in my capacity as Vascular Neurology Specialist. 2014 lung cancer no 2015 - concussion with LOC 2 epsiodes of LOC Interval History: Repeat events or new symptoms: Hospital readmissions/ED visits since discharge: Residual deficits: Ongoing rehab: See further assessment scales below, completed and reviewed this visit. Assessment Scales and Questionnaires Stroke:MMAS-4 01/21/2023 MMAS-4 Score 3 (Medium Adherence) Do you ever forget to take your medication? Yes Are you careless at times about taking your medicine? No Sometimes, if you feel worse when you take the medicine, do you stop taking it? No When you feel better do you sometimes stop taking your medicine? No Stroke:PROMIS-10 01/21/2023 Dkbphi37-Zdzjkeee Health Score 47.7 [id number] Health Score 48.3 Health in general Good Quality of life Very Good Physical health Good Mental health Good Satisfaction with social activities Very Good Ability to carry out physical activities Completely Rate of pain 6 Rate of fatigue Mild Ability to carry out social activities Very Good Bothered by emotional problems Sometimes Stroke:SIS-16 01/21/2023 SIS-16 Score 79 a. Dress the top part of your body? Not difficult at all b. Bathe yourself? Not difficult at all c. Get to the toilet on time? Not difficult at all d. Control your bladder (not have an accident)? Not difficult at all e. Control your bowels (not have an accident)? Not difficult at all f. Standing without losing balance? Not difficult at all g. Go shopping? Not difficult at all h. Do heavy spark tester (e.g., vaccum, laundry or yard work?) Not diffcult at all i. Stay sitting without losing your balance? Not difficult j. Walk without losing your balance? Not difficult at all k. Move from a bed to a chair? Not difficult at all l. Walk fast? Not difficult at all m. Climb one flight of stairs? Not difficult at all n. Walk one block? Not difficult at all o. Get in and out of a car? A little difficult p. Carry heavy objects (e.g., bag of groceries) with your affected hand? Not difficult at all Stroke:Cognitive Screening 01/21/2023 Patient Cognitive Screening No Stroke:GAD2+7 01/21/2023 GAD2 Subscore 0 (Brief screen negative) Nervous, anxious Not at all Unable to stop worrying Not at all Stroke:PHQ2+9 01/21/2023 PHQ-2 Score 0 (Brief screen negative) Little interest or pleasure Not at all Down, depressed, hopeless Not at all No flowsheet data found. Patient Active Problem List Diagnosis Code ??? Non-small cell carcinoma of left lung, stage 1 C34.92 ??? Abnormal auditory perception H93.299 ??? Colon polyp K63.5 ??? Depression F32.A ??? Herpes simplex virus (HSV) infection B00.9 ??? Hypertension I10 ??? Lacunar infarction I63.81 ??? Major depressive disorder F32.9 ??? Alcohol withdrawal F10.939 ??? Arthralgia M25.50 ??? Arthralgia of hip M25.559 ??? Postconcussion syndrome F07.81 ??? Memory impairment R41.3 ??? Unilateral complete paralysis of vocal cord J38.01 ??? Tinnitus H93.19 ??? Ganglion M67.40 Allergies Allergen Reactions ??? Gabapentin Other reaction(s): Made me crazy ??? Propofol Other reaction(s): Other (See Comment) ??? Ancef [Cefazolin] Rash Outpatient Medications Marked as Taking for the 01/25/23 encounter (Office Visit) with Salena Rodas MD Medication Sig Dispense Refill ??? traMADoL (Ultram) 50 mg Tablet Take 1 tablet by mouth as needed. ??? sertraline (Zoloft) 50 mg Tablet Take 75 mg by mouth daily. ??? aspirin EC 81 mg Tablet, Delayed Release (E.C.) Take 81 mg by mouth daily. ??? lsiaysizuls-saynwbjdf-aprcnhsj (Trelegy Ellipta) 100-62.5-25 mcg Disk with Device Inhale 1 puffinto the lungs daily. ??? cholecalciferol, Vitamin D3, 2,000 unit Tablet Daily ??? valACYclovir (Valtrex) 500 mg Tablet Take 500 mg by mouth 2 times daily as needed. ??? clonazePAM (KLONOPIN) 0.5 mg Tablet Take 1 tablet by mouth 2 times daily as needed for Anxiety (or irritability). 14 tablet 0 ??? levothyroxine (SYNTHROID) 50 mcg Tablet Take 50 mcg by mouth daily. ??? b complex vitamins Capsule Take 1 capsule by mouth daily. ??? albuterol (PROVENTIL HFA;VENTOLIN HFA;PROAIR) 90 mcg/actuation HFA Aerosol Inhaler Inhale 2 puffs into the lungs as needed for Wheezing. Use with spacer EXAM: Vitals: 01/25/23 1048 BP: 138/76 BP Location (NBP): Left arm Patient Position: Sitting BP Cuff Sizes: Small Adult (20-26 cm) Pulse: 67 Weight: 60.3 kg (133 lb) Height: 162.6 cm (5' 4) NIH Stroke Scale: (bold applicable choices) NIH Stroke Scale at Initial Evaluation: 1.a. Level of consciousness: 0-Alert 1-Not alert, but arousable with minimal stimulation 2-Not alert, requires repeat stimulation to attend 3-Coma 1.b. Ask patient the month and their age: 0-Answers both correctly 1-Answers one correctly 2-Both incorrect 1.c. Ask patient to open and close eyes: 0-Obeys both correctly 1-Obeys one correctly 2-Both incorrect 2. Best gaze (horizontal eye movement): 0-Normal 1-Partial gaze palsy 2-Forced deviation 3. Visual field testin-No visual field loss 1-Partial hemianopia 2-Complete hemianopia 3-Bilateral hemianopia (blind including cortical blindness) 4. Facial paresis (Ask patient to show teeth or raise eyebrows and close eyes tightly): 0-Normal symmetrical movement 1-Minor paralysis (flattened nasolabial fold, asymmetry on smiling) 2-Partial paralysis (total or near paralysis of lower face) 3-Complete paralysis of one or both sides (absence of facial movement in the upper and lower face) 5. Motor function right arm: 0-Normal (extends arm 90 degrees for 10 seconds without drift) 1-Drift 2-Some effort against gravity 3-No effort against gravity 4-No movement UT-Untestable (Joint fused or limb amputated) 5. Motor function- left arm: 0-Normal (extends arm 90 degrees for 10 seconds without drift) 1-Drift 2-Some effort against gravity 3-No effort against gravity (but baseline) 4-No movement UT-Untestable (Joint fused or limb amputated) 6. Motor function right le-Normal (extends leg 30 degrees for 5 seconds without drift) 1-Drift 2-Some effort against gravity 3-No effort against gravity 4-No movement UT-Untestable (Joint fused or limb amputated) 6. Motor function-left le-Normal (extends leg 30 degrees for 5 seconds without drift) 1-Drift 2-Some effort against gravity 3-No effort against gravity 4-No movement UT-Untestable (Joint fused or limb amputated) 7. Limb ataxia: 0-No ataxia 1-Present in one limb 2-Present in two limbs 8. Sensory (Use pinprick to test arms, legs, trunk and face compare side to side): 0-Normal 1-Mild to moderate decrease in sensation 2-Severe to total sensory loss 9. Best language (describe picture, name items, read sentences): 0-No aphasia 1-Mild to moderate aphasia 2-Severe aphasia 3-Mute 10. Dysarthria (read several words): 0-Normal articulation 1-Mild to moderate slurring of words 2-Near unintelligible or unable to speak UT-Intubated or other physical barrier 11. Extinction and inattention: 0-Normal 1-Inattention or extinction to bilateral simultaneous in one of the sensory modalities 2-Severe bhaskar-inattention or bhaskar-inattention to more than one modality TOTAL SCORE: Modified Waverly Scale (MRS) 0: No symptoms at all 1: No significant disability despite symptoms; able to carry out all usual duties and activities 2: Slight disability; unable to carry out all previous activities, but able to look after own affairs without assistance 3: Moderate disability; requiring some help, but able to walk without assistance 4: Moderate disability; unable to walk without assistance and unable to attend to own bodily needs without assistance 5: Severe disability; bedridden, incontinent and requiring constant nursing care and attention 6: Data and records reviewed: ?? Lipids Lipid Panel ?? Last 3 Hemoglobin A1Cs No results found for: HA1C Clinical Impression and recommendations: Isaura Arellano is a 72 y.o.female Modifiable Risk Factors in Secondary Stroke Prevention Risk Factor Treatment Goals Hypertension Patients with hypertension: <140/90 mm Hg; 10-mm Hg reduction in systolic BP and 5-mm Hg reduction in diastolic BP from baseline Patients with diabetes mellitus or renal disease: <130/80 mm Hg; 10-mm Hg reduction in systolic BP and 5-mm Hg reduction in diastolic BP from baseline Patients without hypertension: <120/80 mm Hg; 10-mm Hg reduction in systolic BP and 5-mm Hg reduction in diastolic BP from baseline Dyslipidemia Atherosclerotic stroke or TIA: low-density lipoprotein (LDL) cholesterol level <70 mg/dl or 50% reduction in LDL cholesterol level from baseline Nonatherosclerotic stroke or TIA: per National Cholesterol Education Program (NCEP) Adult TreatmentPanel III (ATP-III) goals Diabetes Mellitus HgA1c level <7% Cigarette Smoking Complete cessation Alcohol Consumption Men: two or fewer drinks per day Non woman: one or fewer drinks per day Physical Activity At least 30 minutes of moderate intensity physical exercise 1- 3 times per week Diet Low-fat, low-sodium, and Mediterranean or Dietary Approaches to Stop Hypertension diets (diabetic diet when applicable) Obesity Goal body mass index of 18.5-25 kg/m2 ??? Disposition: Return to clinic in Education provided today covered: patient-specific vascular risk factors, cause of the TIA/stroke, prognosis and risk of recurrence, medications for TIA/stroke prevention, potential side effects of these medications, management of modifiable risk factors including heart healthy diet, increased physical activity, maintaining smoke free status, moderation in alcohol, weight management, blood pressure, glucose and cholesterol control, warning signs of stroke, plan to contact EMS in event of recurrent symptoms. Results of diagnostic studies were reviewed. Compliance with treatment and regular follow- up with PCP was emphasized. On the day of this encounter, I the medical provider spent a total of at least 70 minutes providingthis patient's care. This includes time spent [id number] with the patient performing evaluation, examination, and counseling . It also includes non fumk-st-[id number] time preparing to see the patient, reviewing the chart, coordinating care, and documenting clinical information in the electronic healthrecord. documented in this encounter Plan of Treatment Upcoming Encounters Date Type Department Care Team (Late st Contact Info) Description 09/01/2024 4:30 PM EDT Office Visit Dermatology at [facility] [address] [place] [address] Ruma Echavarria MD [facility] [address] [address] documented as of this encounter Procedures Procedure Name Priority Date/Time Associated Diagnosis Comments HC VENIPUNCTURE Routine 01/25/2023 12:55 PM EST Cerebrovascular accident (CVA), unspecified mechanism documented in this encounter Results * Lipid Panel (Reflex Direct LDL) (01/25/2023 12:55 PM EST) [facility] Cholesterol, Total 247 mg/dL [facility] Comment: Lower Risk: <200 mg/dL Average Risk: 200-239 mg/dL Higher Risk: >vp=778 mg/dL Triglyceride 130 mg/dL [facility] Comment: Average Risk/Lower Risk: <150 mg/dL Borderline High Risk: 150-199 mg/dL High Risk: 200-499 mg/dL Very High Risk: >vf=520 mg/dL HDL Cholesterol 69 mg/dL [facility] Comment: Males: ?? Higher Risk: <40 mg/dL Females: ?? Higher Risk: <50 mg/dL LDL Cholesterol 152 mg/dL [facility] Comment: Lowest Risk: <100 mg/dL Lower Risk: 100-129 mg/dL Borderline High Risk: 130-159 mg/dL High Risk: 160-189 mg/dL Very High Risk: >wx=806 mg/dL Cholesterol/HDL Ratio 3.6 ratio [facility] Lipid Interpretation See Note [facility] Comment: Lipid management should be guided by a patient? s ASCVD risk, goals and preferences. ACC/AHA Guidelines recommend high intensity statin if clinical ASCVD or LDL greater than or equal to 190 mg/dL. http://Ayudarum.com/XBV-VVL-[email or web address] Adults aged 40-75 with LDL 70-189 mg/dL should have their 10 year ASCVD risk estimated with the ACC/AHA ASCVD risk technology coach http://tools.acc.org/UTEIN-Mpee-Mspmoxrcu/ Statin should be discussed if risk greater [...] Lab Salena Rodas MD CHEMISTRY ORDERABL ES [facility] [place] [address] documented in this encounter Visit Diagnoses Diagnosis Cerebrovascular accident (CVA), unspecified mechanism documented in this encounter Care Teams Tobacco Stripper Relationship Specialty Start Date End Date Aurelia Bobby MD [address] [place] [address] PCP - General 08/31/14 01/23/24 documented as of this encounter
--- OUTSIDE RECORDS SUMMARY | 2024-07-15 14:27 | XMS_ITS | Encounter Summary ---
[place] [address] Care Team Providers Care Cardiopulmonary Specialist Name Role Phone Aurelia Bobby MD Primary Care Provider [phone] Reason for Visit * Reason Onset Date Comments Appointment 09/18/2022 Encounter Details Date Type Department Care Team (Late st Contact Info) Description 09/18/2022 Telephone Neurology at [facility] [address] [place] [id number] [place] [address] Appointment Social History Tobacco Use Types Packs/Day Years [...] encounter Miscellaneous Notes * Telephone Encounter - Kathy Bajwa - 09/18/2022 10:32 AM EDT Copied from CRM #[id number]. Topic: Specialty Dept CRMs - Appointment Needed >> Sep 18, 2022 10:10 AM Penny Cotter wrote: Appt Needed Specialist Salena Nicole MD Relationship (if other than patient-full name): Appt. Type Needed: FUV Reason for Visit: Isaura calling in discuss scheduling an appointment with Dr. Nicole from a letter received. She states that she already got the results from Dr. Nicole in a phone call for the MRI and MRA. Isaura will be available until 11:30 and again all day tomorrow. Please call Isaura back to discuss. documented in this encounter Plan of Treatment Upcoming Encounters Date Type Department Care Team (Late st Contact Info) Description 09/01/2024 4:30 PM EDT Office Visit Dermatology at [facility] [address] [place] [address] Ruma Echavarria MD [facility] DR ABDIRAH[place] [address] documented as of this encounter Visit Diagnoses Not on filedocumented in this encounter Care Teams Cardiopulmonary Specialist Relationship Specialty Start Date End Date Aurelia Bobby MD [address] [place] [address] PCP - General 08/31/14 01/23/24 documented as of this encounter
--- OUTSIDE RECORDS SUMMARY | 2024-07-15 14:27 | XMS_ITS | Encounter Summary ---
Author Organization [facility] Address [facility] [place] [address] Care Team Providers Care Foot Worker Name Role Phone Aurelia Bobby MD Primary Care Provider [phone] Encounter Details Date Type Department Care Team (Latest Contact Info) Description 09/01/2023 Travel Social History Tobacco Use Types Packs/Day [...] Dermatology at [facility] [address] [place] [address] Ruma Echavarria MD [facility] DR ABDIRAHMAN AG[place] [address] documented as of this encounter Visit Diagnoses Not on filedocumented in this encounter Care Teams Foot Worker Relationship Specialty Start Date End Date Aurelia Bobby MD [address] [place] [address] [address] [place] [address] PCP - General 08/31/14 01/23/24 documented as of this encounter
--- OUTSIDE RECORDS SUMMARY | 2024-07-15 14:27 | XMS_ITS | Encounter Summary ---
Author Organization [facility] [place] [address] Care Team Providers Care Lumber Loader Name Role Phone Aurelia Bobby MD Primary Care Provider [phone] Reason for Visit * Reason Comments Follow-up Encounter Details Date Type Department Care Team (Late st Contact Info) Description 09/04/2022 10:15 AM EDT Office Visit Hematology [place] [address] Tres Graham MD [facility] [place] [address] Elsie Cruz APRN [facility] DR HEMATOLOGY-[place] [address] Non-small cell carcinoma of left lung, stage 1 Social History Tobacco Use Types Packs/Day Years [...] Sign Reading Time Taken Comments Blood Pressure 116/87 09/04/2022 10:48 AM EDT Pulse 71 09/04/2022 10:48 AM EDT Temperature 36.8 ??C (98.2 ??F) 09/04/2022 10:48 AM E DT Respiratory Rate 16 09/04/2022 10:48 AM EDT Oxygen Saturation 96% 09/04/2022 10:48 AM EDT Inhaled Oxygen Concentration - - Weight 58 kg (127 lb 12.8 oz) 09/04/2022 10:48 A M EDT Height 163.4 cm (5' 4.33) 09/04/2022 10:48 AM E DT Body Mass Index 21.71 09/04/2022 10:48 AM EDT documented in this encounter Progress Notes * Elsie Cruz Cindy, WOOD CARVER HAND - 09/04/2022 10:15 AM EDT Thoracic Oncology Follow-up Evaluation HPI: 64 year old female with stage 1B lung adenocarcinoma [id number], s/p JOHNNY lobectomy on 08/09/2014 (surgery revealed a 1.8 cm moderately differentiated adenocarcinoma. No LVI. +visceral pleura invasion. Closest margin 3.5cm. 3 hilar LNs negative, a level 5 LN negative, 10L sump node negative, level 11 LN negative, level 7 LN negative, level 9 LN negative). Last seen 08/23/21. Comes today with a chest CT and for re-evaluation. 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 She is otherwise doing well. Energy level is generally fine. Continues to walk, has started golfingwhich she enjoys. Doing her normal activities. Eating fine, weight is stable. Staying hydrated. Breathing is similar to the last visit. Continues to follow with pulmonology. No SOB at rest. Fluctuating dyspnea which occurs with moderate exertion. Occasional cough, not bothersome, no hemoptysis.No chest pain. No fevers/chills, change in vision, change in swallowing, heartburn, N/V, abd pain, dysuria, lightheadedness, change in balance, falls, new weakness, sensory complaints, bleeding, rash. Constipation managed with metamucil and PRN miralax PMH HTN DJD Asthma Depression PSH S/p breast reduction S/p and tubal ligation FH Brother at age 52 from lung cancer (was a smoker) Father in his 70s from colon cancer Mother from Alzheimer's at 73 or 74 2 sisters - one with RA, one with psoriatic arthritis Brother with hepC - from liver failure Brother with HTN - living and otherwise well MGF and PGF both from colon cancer Denies other cancer Son - 31, well Daughter - 38, well Social , 2 grown children. 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 Physical Examination Vitals: 09/04/22 1048 BP: 116/87 Patient Position: Sitting Pulse: 71 Resp: 16 Temp: 36.8 ??C (98.2 ??F) TempSrc: Temporal SpO2: 96% Weight: 58 kg (127 lb 12.8 oz) Height: 163.4 cm (5' 4.33) Wt Readings from Last 3 Encounters: 09/04/22 58 kg (127 lb 12.8 oz) 08/29/22 57.6 kg (127 lb) 08/23/22 57.2 kg (126 lb) General: alert, conversant, NAD HEENT: conjunctiva clear Neck: no palpable cervical or supraclavicular lymphadenopathy CVS: regular S1S2 without MRG Chest: CTAB, no crackles or wheezes, mildly decreased breath sounds throughout Abdomen: soft, NT, ND, BS+ Extremities: no edema, no calf tenderness Neuro: ambulatory, CN 2-12 grossly intact, moves all 4 extremities Skin: no visible rashes Lab Results Recent Results (from the past 24 hour(s)) Lactate Dehydrogenase Result Value Ref Range LDH 151 110 - 220 unit/L Comprehensive metabolic panel (non-fasting) Result Value Ref Range Glucose Lvl 85 65 - 199 mg/dL BUN 14 8 - 18 mg/dL Creatinine 0.64 (L) 0.70 - 1.20 mg/dL Sodium 142 135 - 145 mmol/L Potassium 4.1 3.5 - 5.0 mmol/L Chloride 105 98 - 107 mmol/L CO2 25 22 - 31 mmol/L Anion Gap 12 5 - 15 mmol/L Calcium 9.7 8.5 - 10.5 mg/dL Total Protein 7.0 6.1 - 8.0 g/dL Albumin 4.6 3.2 - 5.2 g/dL AST 14 0 - 30 unit/L ALT 11 0 - 30 unit/L Alk Phos 78 35 - 105 unit/L Total Bilirubin 0.5 0.2 - 1.3 mg/dL Estimated GFR 95 >=60 mL/min/1.73 m?? Creatinine Result Value Ref Range Creatinine 0.64 (L) 0.70 - 1.20 mg/dL Estimated GFR 95 >=60 mL/min/1.73 m?? Hemogram Result Value Ref Range WBC 7.8 4.0 - 9.5 x10(3)/mcL RBC 4.66 4.00 - 5.21 x10(6)/mcL Hemoglobin 14.7 11.7 - 15.5 g/dL Hematocrit 43.5 35.7 - 45.8 % MCV 93.3 82.6 - 94.4 fL MCH 31.5 27.1 - 32.0 pg MCHC 33.8 31.7 - 35.0 g/dL Platelets 259 145 - 357 x10(3)/mcL RDWSD 47.7 (H) 37.0 - 46.0 fL RDWCV 13.8 11.5 - 14.1 % MPV 9.0 7.6 - 12.9 fL nRBC % Auto 0.0 % nRBC Abs Auto 0.000 0.000 - 0.000 x10(3)/mcL Differential, Automated Result Value Ref Range Neutrophils % 60.1 % Neutr Abs (ANC) 4.70 1.70 - 6.10 x10(3)/mcL Lymphocytes % 27.2 % Lymphocytes Abs 2.1 0.9 - 3.2 x10(3)/mcL Monocytes % 9.5 % Monocyte Abs 0.7 0.3 - 0.9 x10(3)/mcL Eosinophils % 2.1 % Eosinophils Abs 0.2 0.0 - 0.4 x10(3)/mcL Basophils % 0.8 % Basophils Abs 0.1 0.0 - 0.1 x10(3)/mcL Immature Gran % 0.30 % Pavithra Gran Abs 0.02 0.00 - 0.04 x10(3)/mcL Radiology: Chest CT wo contrast from today was personally reviewed with no evidence of disease recurrence IMPRESSION: No evidence of local recurrence or metastasis in the chest. ?? A/P: A 66-year-old patient with history of resected stage IB non-small cell lung cancer who has no clinical or radiographic evidence for recurrence. I counseled the patient about these results, their implications for the prognosis, as well as the available treatment options. The patient understands thatdespite completing all therapy, the risks for recurrence remain. While the risks decrease with time, they do not disappear and the patient will also remain at risk for a new primary cancer of the aerodigestive tract. Continued regular surveillance is recommended. I emphasized the importance of routine health maintenance through PCP. I advised her not to start smoking. She will continue to follow with neurology for cluster HAs. RTC in 1 year with labs, chest CT wo contrast, clinic. I advised to call if there are any fever, shortness of breath, new pain, weakness, bleeding or any other unusual medical symptoms. documented in this encounter Plan of Treatment Upcoming Encounters Date Type Department Care Team (Late st Contact Info) Description 09/01/2024 4:30 PM EDT Office Visit Dermatology at [address] [address] Ruma Echavarria MD [facility] DR ABDIRAHMAN [place] [address] documented as of this encounter Results * (ABNORMAL) Comprehensive metabolic panel (non-fasting) (09/04/2023 9:12 AM EDT) Glucose 96 65 - 199 mg/dL [facility] Comment:Diabetes: >=200 mg/d L plus symptoms Blood Urea Nitrogen 15 8 - 18 mg/dL [facility] Creatinine 0.58(L) 0.70 - 1.20 mg/dL [facility] Sodium 140 135 - 145 mmol/L [facility] Potassium 4.3 3.5 - 5.0 mmol/L [facility] Comment: Please note: ??Patients with WBC >100,000 may have falsely elevated Potassium levels. ??For accurate Potassium quantification in these patients send serum separator tube (gold top) for subsequent determinations. ??Contact the Clinical Chemistry Laboratory if there are any questions. Chloride 106 98 - 107 mmol/L [facility] Carbon Dioxide 28 22 - 31 mmol/L [facility] Anion Gap 6 5 - 15 mmol/L [facility] Calcium 9.8 8.5 - 10.5 mg/dL [facility] Protein, Total 7.1 6.1 - 8.0 g/dL [facility] Albumin 4.7 3.2 - 5.2 g/dL [facility] Aspartate Aminotransferase 14 0 - 30 unit/L [facility] Alanine Aminotransferase 13 0 - 30 unit/L [facility] Alkaline Phosphatase 89 35 - 105 unit/L [facility] Bilirubin, Total 0.3 0.2 - 1.3 mg/dL [facility] Est Glomerular Filtration Rate 97 >=60 mL/min/1. 73 m?? [facility] Comment: This patient's estimated GFR [...] AM EDT 09/04/2023 9:18 AM EDT Elsie C Nancy WOOD CARVER HAND CHEMISTRY ORDERABL ES Performing Organization Address [facility] Co de Phone Number [facility] [place] [address] * Lactate Dehydrogenase (09/04/2023 9:12 AM EDT) Lactate Dehydrogenase 146 110 - 220 unit/L [facility] Blood 09/04/2023 9:12 AM EDT 09/04/2023 9:18 AM EDT Elsie Cruz [employer] CHEMISTRY ORDERABL ES Performing Organization Address [facility]/ZIP [place] [address] documented in this encounter Visit Diagnoses Diagnosis Non-small cell carcinoma of left lung, stage 1 documented in this encounter Care Teams Lumber Loader Relationship Specialty Start Date End Date Aurelia Bobby MD [address] [place] [address] PCP - General 08/31/14 01/23/24 documented as of this encounter
--- OUTSIDE RECORDS SUMMARY | 2024-07-15 14:27 | XMS_ITS | Encounter Summary ---
Author [facility] [place] [address] Care Team Providers Care Marble Cutter Operator Name Role Phone Aurelia Bobby MD Primary Care Provider [phone] Encounter Details Date Type Department Care Team (Late st Contact Info) Description 03/04/2023 Orders Only Neurology at [facility] [address] [place] [address] [place] [address] Episodic cluster headache, not intractable [...] 4:30 PM EDT Office Visit Dermatology at [facility] [address] [place] [address] Ruma Echavarria MD [facility] DR ABDIRAHMAN [place] [address] documented as of this encounter Visit Diagnoses Diagnosis Episodic cluster headache, not intractable Episodic cluster headache documented in this encounter Care Teams Marble Cutter Operator Relationship Specialty Start Date End Date Aurelia Bobby MD [address] [place] [address] PCP - General 08/31/14 01/23/24 documented as of this encounter
--- OUTSIDE RECORDS SUMMARY | 2024-07-15 14:27 | XMS_ITS | Encounter Summary ---
[place] [address] Care Team Providers Care Piped Buttonhole Machine Operator Name Role Phone Aurelia Bobby MD Primary Care Provider [phone] Encounter Details Date Type Department Care Team (Late st Contact Info) Description 05/23/2023 10:00 AM EDT Office Visit Neurology at [address] [address] [place] [address] Episodic cluster headache, not intractable; On supplemental oxygen therapy (for cluster headaches) Social History Tobacco Use Types Packs/Day Years [...] Sign Reading Time Taken Comments Blood Pressure 118/66 05/23/2023 9:53 AM EDT Pulse 57 05/23/2023 9:53 AM EDT Temperature - - Respiratory Rate - - Oxygen Saturation - - Inhaled Oxygen Concentration - - Weight 59.4 kg (131 lb) 05/23/2023 9:53 AM EDT Height 162.6 cm (5' 4) 05/23/2023 9:53 AM EDT r eported Body Mass Index 22.49 05/23/2023 9:53 AM EDT documented in this encounter Patient Instructions * Patient Instructions* Salena Nicole MD - 05/23/2023 10:00 AM EDT Thank you for coming! Do not forget to make a transfer of care appointment for the next time (that visit has to be in person). documented in this encounter Progress Notes * Salena Nicole MD - 05/23/2023 10:00 AM EDT [facility] Follow Up Visit Patient name: Isaura Arellano Date of : 1950 PCP: Aurelia Bobby MD HPI: Isaura Arellano is a 72 y.o. female who presents for followup for headaches in my capacity as Headache Medicine Specialist, followed in Headache Clinic for: cluster headaches PMHx includes: COPD, hypothyroidism, abnormal stress test/ST segment changes, hypertension, right thalamic lacunar infarction (found incidentally on imaging), postconcussive syndrome, attention deficit disorder, memory impairment, major depressive disorder, abnormal auditory perception, tinnitus, HSV, non-small cell lung carcinoma (s/p left lung resection), arthralgia especially in right hip, unilateral complete paralysis of vocal cord, left carpal tunnel syndrome of wrist, constipation, syncope, tick bite. INITIAL CONSULTATION: 08/29/22 LAST SEEN: 03/20/23 LAST PROCEDURE: 03/20/23 SPG block Summary: Isaura Arellano is a 72 y.o. woman who presents for further headache evaluation. Briefly, she has had headaches as a child, and in her adult years she had menstrual migraines without aura.There is extensive family history of migraines. She is here due to new type of headache and facial pain, described as intense stabbing in left V1 and V2 associated with more than usual rhinorrhea on left nasal area, no ptosis starting in mid Nov 2021. She would have headache attacks 2-3 attacks/day, daily from mid Nov to February, lasting 1-2 hours at a time with complete headache freedom in between. Her PCP started her on verapamil 80 mg TID in April, which seemed to lessen the frequency. In August, she has not had these new headaches and almost canceled the appt. She had to stop the verapamil due to constipation (she tried 40 mg TID but the side effect persisted). She is currently CAMP free for Aug. History and examination is most consistent with a diagnosis of episodic cluster headaches and remote history of menstrual migraines without aura. Given change in CAMP pattern, and history of lung cancer, she should have MRI/MRA to rule out secondary causes. Tramadol will likely impair efficacy of Emgality for episodic cluster, and she was encouraged to try to limit Tramadol use if possible (reportsusing it 2x per week, mostly for severe arthritis.) Unfortunately she is not a candidate for the ALLEVIATE episodic cluster headache clinical trial from age standpoint (it unfortunately excludes patients over age of 50 years). Her work-up was notable for a MRA head and neck, which showed chronic appearing right thalamic infarct, small vessel ischemia in WM, and probably severe short segment focal stenosis at origin of right vertebral artery. She was given referral to see stroke neurology, and saw Dr. Salena Rodas. Patient was referred to lipid clinic in cardiology for consideration of Alirucumab and Evolocumab since she is intolerant to statin. Her cluster headaches returned in Dec 2022. Each attack lasts 1-1.5 hours, with 2-3 attacks per day. She has severe left eye pain, rhinorrhea. Emgality 300 mg for cluster headache was ordered, but she could not afford it ($500 each month) and she and her partner make too much to qualify for the patient assistance program. She has used viscous lidocaine in her left nostril also helpful. In March 2023, she received oxygen for cluster dosing. She was instructed to use 7-12 LPM oxygen via face mask for each attack, up to 15 minutes at a time. I have called her contract analyst, who approved the dosing, and planned to draw blood gas at some point to monitor oxygenation. INTERIM HISTORY: She is here for follow-up because it is required by the [employer] that supplies her oxygen. She has had relief with O2 and has been headache-free in March-May 06, 2023 for 3 weeks. Today's visit: She has not had issues with oxygen. Sometime in March, about 2nd week of March she had no headaches. She had 4 week headache free period. In second week of April she had headaches again, but not as intense. She only uses oxygen once a day, 15L works and she saw contract analyst. They usu last 1 hour. With oxygen, she uses it for 15 minutes at 15L, and headache is gone between 10-15 minutes. She just had PFT testing, and it was improved. Her contract analyst thought maybe it was related to oxygen. The SPG blocks works. She had daily headaches for the last 1.5 weeks. Patient Reported: 05/22/2023 6:05 PM MIDAS Responses Days missed school/work 0 Days productivity at work/school reduced 0 Days did not do household work 4 Days productivity related to housework reduced 6 Days missed family, social or leisure activities 2 Days had headache 15 Pain scale 7 MIDAS Score 12 (MIDAS grase III, moderate disability) MIDAS Adjusted Score 12 HEADACHE FREQUENCY: 30/30 HEADCHE DAYS PER MONTH: 30/30 HEADACHE FREE DAYS PER MONTH: 0 FREQUENCY OF ACUTE MEDICATION USE: N/A CURRENT ACUTE TREATMENT: High flow oxygen. Intranasal viscous lidocaine has also helped. CURRENT PREVENTATIVE TREATMENT: Emgality (for Cluster) is cost prohibitive PREVIOUS MEDICATION TRIALS: Triptan -Contraindicated due to abnormal stress test - She has previously tried nasal spray sumatriptan Anti-seizure medication -Gabapentin- made me crazy Antihypertensive -Lisinopril-caused cough Anti-hypertensive Propranolol is contraindicated due to her history of COPD -Verapamil 80 mg TID - started in April 2022 for the headaches (thought it was cluster). She refilled it 3 times and developed horrible constipation from this medication. Unfortunately the constipation has not improved. She was still having constipation 40 mg TID. NSAID - She avoiding Ibuprofen 200 mg every 6 hours as needed due to concern for hypertension SSRI -Zoloft/sertraline Steroid -Prednisone Other -Lidocaine (roll on) - Magnesium - that helped with her post concussive CAMP - B2 - - that helped with her post concussive CAMP Non-pharmacological -Therapist for craniosacral therapy PREVIOUS WORK-UP: MRA brain and neck, 09/07/22: IMPRESSION 1. Increase in number of small foci of white matter signal abnormality within the cerebral hemispheres and scott, a nonspecific finding most commonly reflecting small vessel ischemia. 2. 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 3. No cerebral aneurysm or evidence of vascular malformation. IMPRESSION: Probable severe short segment focal stenosis at the origin of the codominant right vertebral artery. No other site of more than mild stenosis in the large arteries of the neck Lumbar Puncture: yes, when she was 32 yrs old. She had chickenpox and she had a CAMP. They were looking for meningitis, CSF was normal. HPI per Initial Consult Note: When she was a child when she had her first ever CAMP, nocturnal vomiting. In her early 20s, she started having more frequent headaches. These did not happen very often. Theywere often around the time of menstruation. She used a triptan at the time (nasal spray sumatriptan). It did not help. It had been years since she had a usual headache, . She had a head injury in 2015, where she did lose consciousness, when she had residual LOC following that. Then that got better. Somewhere around mid Nov 2021 (she does not recall the specific date), she started left sided headache that she thought was sinus infection. Abx (she used her saved up Augmentin) did not help. She was given steroids, which did not help either. The CAMP persisted. 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 Then the headache is unsuual, itcomes on suddenly. It is ALWAYS on the left. It would be in around left orbit, around cheek bone, and around nose. So she saw an ENT specialist, who did not see any structrual sinus pathology. The pain last 1-2 hours, then would go away, and it would return. She would have 3-4x episodes per day. Ifshe laid down, it improved. If she took a nap, it would go away. On occasion, she would wake up with a headache. If she strained to finish voiding or have a BM, or sneeze, or anything Valsalva, the headache would be worse. She denies any vomiting. She has some light sensitivity, not as severe as itwas years ago. Pain is a stabbing pain, feels like a volley of stabs. In between pain episodes, she would be pain-free. She saw PT for DJD and does cranial-sacral therapy. PT thought maybe related to her new progressivelenses. She now switched glasses, but she still has the headaches, but not as frequency (a few times as per week, daily). She had daily facial pain up until February. The CAMP frequency started decreasingsince verapamil. She has also gone to the dentist, who did not see abscess. She has a history of migraines, however has not had one in years. She describes pain around her left eye. This headache has been daily since November. This headache is associated with left nasal congestion. She had an evaluation by ENT, who ordered CT of her sinuses and that did not see any structural sinus pathology. Headache Features: Frequency: 2-3x a day ; now only has once a week. She canceled now. Time of Day Prediliction: no specific time, usually out of no where Duration: 1-2 hours at a time Time to Peak / MAS: immediately Location: left, V1, V2 (eyebrow, cheek). Would also have some occipital tenderness. Quality: 8/10 at worst, 6 Severity: Prodrome/Aura (type, time course): Precipitating Factors/Triggers: - touching face, moving jaw does not trigger Alleviating Factors: She uses tramadol for degenerative arthritis, it does help. Associated Symptoms (including autonomic): - No left eye conjunction - She does have more severe left rhinorrhea with the headache (she also has allergies many years) - No left ptosis - No particular excessive sweating in the left forehead or facial area Cutaneous Allodynia: No Avoidance of Activity: Yes , prefers laying down. She has done ADL's through her activity,. She canget through 9 headache of golf. Between golf and laying down, she would prefer laying down. She plays golf for fun. She will also be able to walk with her dogs. +H/o chronic insomnia, asthma/COPD, motion sickness, MJ use OTHER: N/A The patient's current medications, allergies, past medical history, past surgical history, family history, and social history were reviewed in the electronic medical record and reconciled with the patient during the encounter. Current Outpatient Medications on File Prior to Visit Medication Sig Dispense Refill olopatadine (Patanol) 0.1 % Drops 1 drop 2 times daily. mometasone (NASONEX) 50 mcg/actuation [place], Non-Aerosol by Nasal route. UNABLE TO FIND CBD tincture when gets headaches traMADoL (Ultram) 50 mg Tablet Take 1 tablet by mouth as needed. sertraline (Zoloft) 50 mg Tablet Take 75 mg by mouth daily. aspirin EC 81 mg Tablet, Delayed Release (E.C.) Take 81 mg by mouth daily. xzvfwbassuj-nuzzytelh-tsvdkiit (Trelegy Ellipta) 100-62.5-25 mcg Disk with Device Inhale into the lungs. VITAMIN B COMPLEX-100 ORAL Take 100 Units by mouth daily. cholecalciferol, Vitamin D3, 2,000 unit Tablet Daily valACYclovir (Valtrex) 500 mg Tablet Take 500 mg by mouth 2 times daily as needed. clonazePAM (KLONOPIN) 0.5 mg Tablet Take 1 tablet by mouth 2 times daily as needed for Anxiety (or irritability). 14 tablet 0 levothyroxine (SYNTHROID) 50 mcg Tablet Take 50 mcg by mouth daily. b complex vitamins Capsule Take 1 capsule by mouth daily. albuterol (PROVENTIL HFA;VENTOLIN HFA;PROAIR) 90 mcg/actuation HFA Aerosol Inhaler Inhale 2 puffs into the lungs as needed for Wheezing. Use with spacer No current facility-administered medications on file prior to visit. Allergies Allergen Reactions Gabapentin Other reaction(s): Made me crazy Propofol Other reaction(s): Other (See Comment) Ancef [Cefazolin] Rash Atorvastatin Calcium Rosuvastatin Calcium Questionnaire Results: MIDAS 05/22/2023 6:05 PM MIDAS Responses Days missed school/work 0 Days productivity at work/school reduced 0 Days did not do household work 4 Days productivity related to housework reduced 6 Days missed family, social or leisure activities 2 Days had headache 15 Pain scale 7 MIDAS Score 12 (MIDAS grase III, moderate disability) MIDAS Adjusted Score 12 MIDAS grade (use total of Q1 to 5) I: 0-5, little to no disability II: 6-10, mild disability III: 11-20, moderate disability IV: 21+, severe disability PHQ9 01/26/2021 8:00 AM PHQ-9: Responses Post 03/25/23 Conversion Little interest or pleasure Not at all Down, depressed, hopeless Not at all PHQ-2 Subscore 0 Mild: 5-9 Moderate: 10-14 Mod-Severe: 15-19 Severe: >20 GAD7 01/21/2023 9:27 AM BENTLEY-7 Patient Reported Responses Nervous, anxious (Patient) Not at all Unable to stop worrying (Patient) Not at all Mild: 5-9 Moderate: 10-14 Severe: 15-21 PHYSICAL EXAMINATION: Vitals: 05/23/23 0953 BP: 118/66 Pulse: 57 Weight: 59.4 kg (131 lb) Height: 162.6 cm (5' 4) General exam: The patient was in no acute distress. Dressed appropriately. The patient is alert, interactive, and has appropriate mood and congruent affect. The patient is able to recall the details of their medical history without difficulty. Last 3 wbc, hgb, hct plt Recent Labs 09/04/22 0951 WBC 7.8 HGB 14.7 HCT 43.5 PLATELET 259 Last 3 LFTs Recent Labs 09/04/22 0951 AST 14 ALT 11 ALKPHOS 78 BILITOT 0.5 Last 3 TFT No results for input(s): TSH in the last 7068 hours. Invalid input(s): T4, FT4 Last CRP, SEDRATENo results for input(s): CRP, SEDRATE in the last 7068 hours. IMPRESSION: ICD-10-CM 1. Episodic cluster headache, not intractable G44.019 Updated assessment: High flow O2 is working well at 15 LPM and works well within 15 min. She uses it when she is at home. She has seen her contract analyst, who approved her high dose and recently had another PFT, which showed improved lung function. At this time I will make no changes to her medications. PLAN: - For acute treatment of headache: High flow oxygen up to 15 LPM PRN. 15 LPM is the rate that works the best. She was also given prescription of lidocaine 2% gel for pain as needed. She is NOT a candidate for IN triptans or ergots/DHE due to history of right thalamic stroke on imaging and history of non-obstructive CAD on cardiac cath 06/27/21 - For headache prevention: None. - Medications to be withdrawn/discontinued: None at the present time. - Bridging/Transitional Therapy: SPG blocks PRN. - Future consideration: - For her migraines, nasal spray gepant (zavegepant) may be considered. - Unfortunately Emgality 300 mg SQ remains cost prohibitive (she would have to pay $500 per month). I would avoid verapamil for prevention due to history of CAD on previous cardiac cath; higher dosescan further increase risk of heart block and arrhythmia. She has also tried verapamil but developedconstipation on 40 mg TID. - We have not discussed neuromodulation, specifically GammaCore, which is likely be cost-prohibitive. She may be a candidate for steroid + ONB q3 month. We discussed this today, but opted to defer. Follow up visit in: Since I will be graduating from headache clinic in May 2023, she will need TOCvisit. I recommend this visit in 3 months since her medical supply company for O2 appears to require these visits regularly. The pathophysiology, natural history, aggravating factors, and my diagnostic/management plan was discussed with the patient in great detail. The risks and benefits of this treatment plan were discussed with the patient. Individual side effect profiles for each medication were discussed in detail. In structions on how to properly take each medication were discussed in detail. The patient was given an opportunity to ask questions. All questions were answered and the patient was satisfied with the explanation(s). If any area requires explanation or clarification please do not hesitate to contact me. Please excuse any unintentional typo as this note was dictated using voice-recognition software.If there is concern for errors, please do not hesitate to bring it up to my attention. Total time spent with Patient and/or charting on the day of the encounter: 20 minutes. Salena Nicole MD Headache Fellow, [facility] 05/23/2023 documented in this encounter Plan of Treatment Upcoming Encounters Date Type Department Care Team (Late st Contact Info) Description 09/01/2024 4:30 PM EDT Office Visit Dermatology at [facility] [address] [place] [address] Ruma Echavarria MD [facility] [address] [address] documented as of this encounter Visit Diagnoses Diagnosis Episodic cluster headache, not intractable Episodic cluster headache On supplemental oxygen therapy (for cluster headaches) Dependence on supplemental oxygen documented in this encounter Care Teams Piped Buttonhole Machine Operator Relationship Specialty Start Date End Date Aurelia Bobby MD [address] [place] [address] PCP - General 08/31/14 01/23/24 documented as of this encounter
--- OUTSIDE RECORDS SUMMARY | 2024-07-15 14:27 | XMS_ITS | Encounter Summary ---
Author Organization [facility] [place] [address] Care Team Providers Care Contact Center Associate Name Role Phone Aurelia Bobby MD Primary Care Provider [phone] Encounter Details Date Type Department Care Team (Late Contact Info) Description 03/11/2023 Orders Only Neurology at [facility] [address] [place] [address] [place] [address] Episodic cluster headache, not intractable [...] 4:30 PM EDT Office Visit Dermatology at [facility] [address] [place] [id number] Ruma Echavarria MD [facility] [address] [address] documented as of this encounter Visit Diagnoses Diagnosis Episodic cluster headache, not intractable Episodic cluster headache documented in this encounter Care Teams Contact Center Associate Relationship Specialty Start Date End Date Aurelia Bobby MD [address] [place] [address] PCP - General 08/31/14 01/23/24 documented as of this encounter
--- OUTSIDE RECORDS SUMMARY | 2024-07-15 14:27 | XMS_ITS | Encounter Summary ---
Author Organization [facility] [place] [address] Care Team Providers Care Garageman Name Role Phone Aurelia Bobby MD Primary Care Provider [phone] Encounter Details Date Type Department Care Team (Late st Contact Info) Description 07/17/2023 Telephone Cardiology at [address] [address] Jennifer Wheatley, RN Social History Tobacco Use Types Packs/Day Years [...] encounter Miscellaneous Notes * Telephone Encounter - Jennifer Wheatley, RN - 07/17/2023 4:04 PM EDT PCP referral to cardiology for chest pain, already had echocardiogram following ER evaluation at [facility]. .. Patient Active Problem List Diagnosis Code Non-small cell carcinoma of left lung, stage 1 C34.92 Abnormal auditory perception H93.299 Chronic depression F32.A Hypertension I10 Lacunar infarction I63.81 Major depressive disorder F32.9 Pain in joint involving pelvic region and thigh M25.559 Postconcussion syndrome F07.81 Functional memory problem R41.3 Unilateral complete paralysis of vocal cord J38.01 Tinnitus H93.19 Ganglion M67.40 Attention deficit disorder F98.8 Constipation K59.00 Family history of malignant neoplasm of colon in father Z80.0 Hammer toe M20.40 Hypothyroidism E03.9 Noninflammatory disorder of cervix uteri, unspecified N88.9 Adductor tendinitis of right hip M76.891 Primary osteoarthritis of right hip M16.11 Sensorineural hearing loss (SNHL) of both ears H90.3 .. lidocaine (Xylocaine) 2 % Solution olopatadine (Patanol) 0.1 % Drops mometasone (NASONEX) 50 mcg/actuation [place], Non-Aerosol UNABLE TO FIND traMADoL (Ultram) 50 mg Tablet sertraline (Zoloft) 50 mg Tablet aspirin EC 81 mg Tablet, Delayed Release (E.C.) wyeamslesri-kjjmlpnni-shoqawgg (Trelegy Ellipta) 100-62.5-25 mcg Disk with Device VITAMIN B COMPLEX-100 ORAL cholecalciferol, Vitamin D3, 2,000 unit Tablet valACYclovir (Valtrex) 500 mg Tablet clonazePAM (KLONOPIN) 0.5 mg Tablet levothyroxine (SYNTHROID) 50 mcg Tablet b complex vitamins Capsule albuterol (PROVENTIL HFA;VENTOLIN HFA;PROAIR) 90 mcg/actuation HFA Aerosol Inhaler To schedule for next available appointment with Dr. Cruz documented in this encounter Plan of Treatment Upcoming Encounters Date Type Department Care Team (Late st Contact Info) Description 09/01/2024 4:30 PM EDT Office Visit Dermatology at [facility] [address] [place] [id number] Ruma Echavarria MD [facility] [address] [place] [address] documented as of this encounter Visit Diagnoses Not on filedocumented in this encounter Care Teams Garageman Relationship Specialty Start Date End Date Aurelia Bobby MD [address] [place] [address] PCP - General 08/31/14 01/23/24 documented as of this encounter
--- OUTSIDE RECORDS SUMMARY | 2024-07-15 14:27 | XMS_ITS | Encounter Summary ---
[place] [address] Care Team Providers Care Waiter/Waitress Formal Name Role Phone Aurelia Bobby MD Primary Care Provider [phone] Encounter Details Date Type Department Care Team (Late st Contact Info) Description 09/13/2022 Telephone Neurology at [address] [address] [place] [address] Social History Tobacco Use Types Packs/Day Years [...] Telephone Encounter - Yumiko Ames RN - 09/14/2022 12:13 PM EDT Telephone Call Call made to Concepcion, guest relations representative at [facility] to discuss home oxygen cost forthis patient out of pocket. Insurance is no longer covering home oxygen for cluster headaches. Concepcion will reach out to Isaura Arellano and discuss cost of home oxygen. Patient has indicated she may be able to pay out of pocket if cost is not too prohibitive. Concepcion will let the Headache clinic know what the outcome of the conversation is. * Telephone Encounter - Pat Walters RN - 09/13/2022 12:56 PM EDT Copied from CRM #[id number]. Topic: Specialty Dept CRMs - Medication Issues >> Sep 13, 2022 12:24 PM Lindsay Zendejas wrote: Medication Issues Specialist [place] Nicole MD Relationship (if other than patient-full name): Isaura Arellano Reason for call: Medication Issue (if symptom based used Triage Subtopic) Message/information for the nurse: Patient is reporting that [facility] does not fill oxygen needs for cluster headaches Name of Medication: Home oxygen Issue with the medication: Isaura is asking if [employer] would cover this and she states she is also looking at [employer] since she is paying out of pocket. documented in this encounter Plan of Treatment Upcoming Encounters Date Type Department Care Team (Late st Contact Info) Description 09/01/2024 4:30 PM EDT Office Visit Dermatology at [facility] [address] [place] [address] Ruma Echavarria MD [facility] [address] ABDIR[facility]MAN [place] [address] documented as of this encounter Visit Diagnoses Not on filedocumented in this encounter Care Teams Waiter/Waitress Formal Relationship Specialty Start Date End Date Aurelia Bobby MD [address] [place] [address] PKY [facility] 1 [place] [address] PCP - General 08/31/14 01/23/24 documented as of this encounter
--- OUTSIDE RECORDS SUMMARY | 2024-07-15 14:27 | XMS_ITS | Encounter Summary ---
[place] [address] Care Team Providers Care Doctor Of Naprapathic Medicine Name Role Phone Aurelia Bobby MD Primary Care Provider [phone] Encounter Details Date Type Department Care Team (Late st Contact Info) Description 09/27/2022 Telephone Neurology at [address] [address] [place] [address] Social History Tobacco Use Types Packs/Day Years [...] Telephone Encounter - Yumiko Ames RN - 09/27/2022 10:51 AM EDT Telephone Call Call made to Isaura Arellano. I explained I spoke with Concepcion([phone]) [facility] Home oxygen will be $185.00 for the initial tank. This cost is without insurance. To refill the tank will be $45.00 . Isaura has the phone number for [facility]. She will call if she decided to use the oxygen for her cluster headache. documented in this encounter Plan of Treatment Upcoming Encounters Date Type Department Care Team (Late st Contact Info) Description 09/01/2024 4:30 PM EDT Office Visit Dermatology at [facility] [address] [place] [address] Ruma Echavarria MD [facility] [place] [address] documented as of this encounter Visit Diagnoses Not on filedocumented in this encounter Care Teams Doctor Of Naprapathic Medicine Relationship Specialty Start Date End Date Aurelia Bobby MD [address] [place] [address] [address] [facility] 1 [place] [address] PCP - General 08/31/14 01/23/24 documented as of this encounter
--- OUTSIDE RECORDS SUMMARY | 2024-07-15 14:27 | XMS_ITS | Encounter Summary ---
[place] [address] Care Team Providers Care Java Tech Lead Name Role Phone Aurelia Bobby MD Primary Care Provider [phone] Encounter Details Date Type Department Care Team (Late st Contact Info) Description 03/20/2023 10:00 AM EDT Office Visit Neurology at [address] [address] [place] [address] Episodic cluster headache, not intractable Social History [...] Sign Reading Time Taken Comments Blood Pressure 133/69 03/20/2023 9:51 AM EDT Pulse 87 03/20/2023 9:51 AM EDT Temperature - - Respiratory Rate - - Oxygen Saturation - - Inhaled Oxygen Concentration - - Weight 59 kg (130 lb) 03/20/2023 9:51 AM EDT Height 162.6 cm (5' 4) 03/20/2023 9:51 AM EDT r eported Body Mass Index 22.31 03/20/2023 9:51 AM EDT documented in this encounter Progress Notes * Salena Nicole MD - 03/20/2023 10:00 AM EDT [facility] Neurology Headache Clinic Follow Up Visit Patient name: Isaura Arellano Date of : 1950 PCP: Aurelia Bobby MD HPI: Isaura Arellano is a 72 y.o. female who presents for followup for headaches in my capacity as Headache Medicine Specialist, followed in Headache Clinic for: cluster headaches PMHx includes: COPD, hypothyroidism, abnormal stress test/ST segment changes, hypertension, lacunarinfarction, postconcussive syndrome, attention deficit disorder, memory impairment, major depressive disorder, abnormal auditory perception, tinnitus, HSV, non-small cell lung carcinoma (s/p left lung resection), arthralgia especially in right hip, unilateral complete paralysis of vocal cord, left carpal tunnel syndrome of wrist, constipation, syncope, tick bite. ?? INITIAL CONSULTATION: 08/29/22 LAST SEEN: 08/29/22 Summary: Isaura Arellano is a 72 y.o. [...] She is currently CAMP free for Aug. ?? History and examination is most consistent with [...] excludes patients over age of 50 years). ?? INTERIM HISTORY: Since last being seen the patient had MRA head and neck, which showed chronic appearing right thalamic infarct, small vessel ischemia in WM, and probably severe short segment focal stenosis at origin of right vertebral artery. She was given referral to see stroke neurology, and sawDr. Salena Macdonald. Patient was referred to lipid clinic in cardiology for consideration of Alirucumab and Evolocumab since she is intolerant to statin. She saw me, but 3 months after seeing me, her cluster returned in Dec 2022. She was back in this cycles, where she has daily headaches for 2 month. Each attack lasts 1-1.5 hours.She notes left eye, nasal rhinorrhea., the worst pain ever. What is different is that she has gotten nauseous. She has 2-3x attacks a day. She has used roll on lidocaine, helped. The Emgality cost $500 for 3 injections (300 mg for cluster dose); she cannot afford this. She and her partner make too much to qualify for the patient assistance program. She uses aromatherapy, uses company called [employer] (sp?). Patient Reported: 08/27/2022 6:10 PM MIDAS Responses Days missed school/work 0 Days productivity at work/school reduced 30 Days did not do household work 50 Days productivity related to housework reduced 70 Days missed family, social or leisure activities 5 Days had headache 90 Pain scale 6 MIDAS Score 155 (MIDAS grade IV, severe disability) MIDAS Adjusted Score 155 HEADACHE FREQUENCY: 30/30 HEADCHE DAYS PER MONTH: 30/30 HEADACHE FREE DAYS PER MONTH: 0 FREQUENCY OF ACUTE MEDICATION USE: N/A CURRENT ACUTE TREATMENT: She is working on obtaining oxygen. CURRENT PREVENTATIVE TREATMENT: Emgality (for Cluster) is cost prohibitive PREVIOUS MEDICATION TRIALS: Triptan -Contraindicated due to abnormal stress test - She has previously tried nasal spray sumatriptan ?? Anti-seizure medication -Gabapentin- made me crazy ?? Antihypertensive -Lisinopril-caused cough ?? Anti-hypertensive Propranolol is contraindicated due to her history of COPD -Verapamil 80 mg TID - started in April 2022 for the headaches (thought it was cluster). She refilled it 3 times and developed horrible constipation from this medication. Unfortunately the constipation has not improved. She was still having constipation 40 mg TID. ?? NSAID - She avoiding Ibuprofen 200 mg every 6 hours as needed due to concern for hypertension ?? SSRI -Zoloft/sertraline ?? Steroid -Prednisone ?? Other -Lidocaine (roll on) - Magnesium - that helped with her post concussive CAMP - B2 - - that helped with her post concussive CAMP ?? Non-pharmacological -Therapist for craniosacral therapy PREVIOUS WORK-UP: MRA brain and neck, 09/07/22: IMPRESSION 1. Increase in number of small foci of white matter signal abnormality within the cerebral hemispheres and scott, a nonspecific finding most commonly reflecting small vessel ischemia. 2. 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 3. No cerebral aneurysm or evidence of vascular malformation. ? IMPRESSION: Probable severe short segment focal stenosis at the origin of the codominant right vertebral artery. ?? No other site of more than mild stenosis in the large arteries of the neck Lumbar Puncture: yes, when she was 32 yrs old. She had chickenpox and she had a CAMP. They were looking for meningitis, CSF was normal. HPI per Initial Consult Note: When she was a child when she had her first ever CAMP, nocturnal vomiting. ?? In her early 20s, she started having more frequent headaches. These did not happen very often. Theywere often around the time of menstruation. She used a triptan at the time (nasal spray sumatriptan). It did not help. It had been years since she had a usual headache, 1999s. ?? She had a head injury in 2016, where she did lose consciousness, when she had residual LOC following that. Then that got better. ?? Somewhere around mid Nov 2021 (she does [...] not as severe as itwas years ago. ?? Pain is a stabbing pain, feels like a volley of stabs. In between pain episodes, she would be pain-free. ?? She saw PT for DJD and does cranial-sacral therapy. PT thought maybe related to her new progressivelenses. She now switched glasses, but she still has the headaches, but not as frequency (a few times as per week, daily). She had daily facial pain up until February. The CAMP frequency started decreasingsince verapamil. ?? She has also gone to the dentist, who did not see abscess. ? She has a history of migraines, however has not had one in years. She describes pain around her left eye. This headache has been daily since November. This headache is associated with left nasal congestion. ?? She had an evaluation by ENT, who ordered CT of her sinuses and that did not see any structural sinus pathology. ?? Headache Features: Frequency: 2-3x a day ; now only has once a week. She canceled now. Time of Day Prediliction: no specific time, usually out of no where Duration: 1-2 hours at a time Time to Peak / MAS: immediately Location: left, V1, V2 (eyebrow, cheek). Would also have some occipital tenderness. Quality: 8/10 at worst, 6 Severity: Prodrome/Aura (type, time course): ?? Precipitating Factors/Triggers: - touching face, moving jaw does not trigger ?? Alleviating Factors: She uses tramadol for degenerative arthritis, it does help. ?? Associated Symptoms (including autonomic): - No left eye conjunction - She does have more severe left rhinorrhea with the headache (she also has allergies many years) - No left ptosis - No particular excessive sweating in the left forehead or facial area ?? Cutaneous Allodynia: No Avoidance of Activity: Yes [...] Prior to Visit Medication Sig Dispense Refill ??? olopatadine (Patanol) 0.1 % Drops 1 drop 2 times daily. ??? mometasone (NASONEX) 50 mcg/actuation [place], Non-Aerosol by Nasal route. ??? UNABLE TO FIND CBD tincture when gets headaches ??? traMADoL (Ultram) 50 mg Tablet Take 1 tablet by mouth as needed. ??? sertraline (Zoloft) 50 mg Tablet Take 75 mg by mouth daily. ??? aspirin EC 81 mg Tablet, Delayed Release (E.C.) Take 81 mg by mouth daily. ??? bpplfeadzgu-elucxnwvf-fofoxcex (Trelegy Ellipta) 100-62.5-25 mcg Disk with Device Inhale into the lungs. ??? cholecalciferol, Vitamin D3, 2,000 unit Tablet [...] as needed for Wheezing. Use with spacer ??? VITAMIN B COMPLEX-100 ORAL Take 100 Units by mouth daily. No current facility-administered medications on file prior to visit. Allergies Allergen Reactions ??? Gabapentin Other reaction(s): Made me crazy ??? Propofol Other reaction(s): Other (See Comment) ??? Ancef [Cefazolin] Rash ??? Atorvastatin Calcium ??? Rosuvastatin Calcium Questionnaire Results: MIDAS 03/20/2023 10:00 AM MIDAS Responses Days missed school/work 0 Days productivity at work/school reduced 30 Days did not do household work 30 Days productivity related to housework reduced 30 Days missed family, social or leisure activities 20 Days had headache 50 Pain scale 7 MIDAS Score 110 (MIDAS grade IV, severe disability) MIDAS Adjusted Score 110 MIDAS grade (use total of Q1 to 5) I: 0-5, little to no disability II: 6-10, mild disability III: 11-20, moderate disability IV: 21+, severe disability PHQ9 01/21/2023 9:27 AM PHQ-9 QUESTIONNAIRE (AMB) Little interest or pleasure (Patient) Not at all Down, depressed, hopeless (Patient) Not at all Mild: 5-9 Moderate: 10-14 Mod-Severe: 15-19 Severe: >20 GAD7 01/21/2023 9:27 AM BENTLEY-7 Patient Reported Responses Nervous, anxious (Patient) Not at all Unable to stop worrying (Patient) Not at all Mild: 5-9 Moderate: 10-14 Severe: 15-21 PHYSICAL EXAMINATION: Vitals: 03/20/23 0951 BP: 133/69 Pulse: 87 Weight: 59 kg (130 lb) Height: 162.6 cm (5' 4) General [...] CRP, SEDRATE in the last 7068 hours. Procedure Note Procedure: Left sided Sphenopalatine Nerve Block of the Trigeminal Branch Nerve Block Using the SphenoCath Device Indication: Cluster headache Consent: Indication, risks, benefits, and alternatives discussed with patient, including risk of lowered blood pressure, nausea, epistaxis, infection, permanent numbness, metallic taste, numbness to the back of the throat, small risk of dizziness and medication reaction. I obtained written informed consent from the patient for nerve block(s) procedure.. February 2023 Location: Left-sided Sphenopalatine ganglia nerve block through the nostril Medication: 2% Lidocaine 2% Viscous Lidocaine for lubrication of the device Technique: Patient is positioned laying back with a 15' neck extension. Device was placed into the left nostril, the cather was directed towards apex of the nose. Articulating tip was advanced over the middle turbinate, approximately 3.0 cc of 2% lidocaine without epinephrine was injected through the cather to the Sphenopalatine (SPG) foramen. Patient was asked to remain in position for an additional 20 minutes with the solution in her nose. The patient tolerated the procedure well. Pre procedure pain rating 5/10 Post procedure pain rating 1/10 Patient was asked to contact our clinic if there are any concerns. Complications: None IMPRESSION: ICD-10-CM 1. Episodic cluster headache, not intractable G44.019 Updated assessment: She has been in active cluster since December. Emgality was cost prohibitive. She is working on getting oxygen and the supplier is requesting an updated note. She has 2-3 attacks per day, lasting 1-1.5 hours with left sided rhinorrhea and eye pain. For acute relief, she was given left sided SPG block. Barrier to further SPG blocks include travel time. I explained to her oxygen was still the best first line therapy. Addendum on 03/25: Patient was able to obtain oxygen without cost but there is a question of safety of use of oxygen for cluster given lung cancer history and COPD. I left for pulmnologist and called patient advising her not to use oxygen until we get clearer directions from pulmnologist. She can come to clinic every week for SPG blocks if needed. She cannot tolerate verapamil due to severe constipation, so at this point oxygen and SPG are current working options for treatment. PLAN: - For acute treatment of headache: Oxygen should be first line for cluster headache treatment. She is NOT a candidate for IN triptans or ergots/DHE due to history of right thalamic stroke on imaging and history of non-obstructive CAD on cardiac cath 06/27/21 - For headache prevention: Unfortunately Emgality 300 mg SQ remains cost prohibitive (she would have to pay $500 per month). I would avoid verapamil for prevention due to history of CAD on previous cardiac cath; higher dosescan further increase risk of heart block and arrhythmia. - Medications to be withdrawn/discontinued: None at the present time. - Bridging/Transitional Therapy: SPG blocks PRN. - Future consideration: We have not discussed neuromodulation, specifically GammaCore, which may be cost-prohibitive. She may be a candidate for steroid + ONB q3 month. We discussed this today, but opted to defer. - Follow up visit in: as needed or symptoms worsen. The pathophysiology, natural history, aggravating factors, and [...] charting on the day of the encounter: 30 minutes. Salena Nicole MD Headache Fellow, [facility] Headache Clinic 03/20/2023 * Paddy Fu MD - 03/20/2023 10:00 AM EDT Attending Note 03-20-23 I evaluated the patient with Dr. Nicole. I have reviewed the fellow's history, and I agree with the details as written. The assessment and plan were formulated in discussion with me, and I agree with them as documented. Patient understands and accepts our plan. Briefly, MRI showed R thalamic infarct and a lot of white matter disease. She also had R vert severe stenosis. She was referred to stroke who recommended an injectable statin & referred her to cardiology. She went into a cluster cycle in Dec. She is using O2 and is having 2-3 attacks per day. She could not afford galca. We will prescribe verapamil 40 mg TID and renew O2. We will get a pulmonary consult about the safety of using O2 daily with COPD and hx of lung CA. Paddy Fu MD documented in this encounter Plan of Treatment Upcoming Encounters Date Type Department Care Team (Late st Contact Info) Description 09/01/2024 4:30 PM EDT Office Visit Dermatology at [address] [address] Ruma Echavarria MD [facility] DR ABDIR[facility]MAN [place] [address] documented as of this encounter Visit Diagnoses Diagnosis Episodic cluster headache, not intractable Episodic cluster headache documented in this encounter Administered Medications Inactive Administered Medications - up to 3 most recent administrations Medication Order MAR Action Action Date Dose Rate Site lidocaine (pf) (Xylocaine) (20 mg/mL) 2% injection 60 mg 60 mg, Other, ONCE, 1 dose, On Sat03/20/23 at 1230, Routine Given 03/20/2023 1:57 PM EDT 60 mg lidocaine (Xylocaine) 2 % viscous solution 5 mL 5 mL, Mucous Membrane, ONCE, 1 dose, On Sat03/20/23 at 1230, Routine Given 03/20/2023 1:57 PM EDT 5 mLs documented in this encounter Care Teams Java Tech Lead Relationship Specialty Start Date End Date Aurelia Bobby MD [address] [place] [address] [facility] [place] [address] PCP - General 08/31/14 01/23/24 documented as of this encounter
--- OUTSIDE RECORDS SUMMARY | 2024-07-15 14:27 | XMS_ITS | Encounter Summary ---
Author Organization [facility] Address [facility] [place] [address] Care Team Providers Care Engraver Jewelry Name Role Phone Aurelia Bobby MD Primary Care Provider [phone] Encounter Details Date Type Department Care Team (Latest Contact Info) Description 05/22/2023 Travel Social History Tobacco Use Types Packs/Day [...] 4:30 PM EDT Office Visit Dermatology at [facility] [address] [place] [address] Ruma Echavarria MD [facility] [address] ABDIR[facility] [address] documented as of this encounter Visit Diagnoses Not on filedocumented in this encounter Care Teams Engraver Jewelry Relationship Specialty Start Date End Date Aurelia Bobby MD [address] [place] [address] [address] [place] [address] PCP - General 08/31/14 01/23/24 documented as of this encounter
--- OUTSIDE RECORDS SUMMARY | 2024-07-15 14:27 | XMS_ITS | Encounter Summary ---
Author Organization [facility] Address [facility] [place] [address] Care Team Providers Care Band Aid Machine Operator Name Role Phone Aurelia Bobby MD Primary Care Provider [phone] Encounter Details Date Type Department Care Team (Latest Contact Info) Description 01/17/2024 Travel Social History Tobacco Use Types Packs/Day [...] at [facility] [address] [place] [address] Ruma Echavarria MD [facility] DR ABDIR[facility] [place] [address] documented as of this encounter Visit Diagnoses Not on filedocumented in this encounter Care Teams Band Aid Machine Operator Relationship Specialty Start Date End Date Aurelia Bobby MD [address] [place] [address] [address] [address] [place] [address] PCP - General 08/31/14 01/23/24 documented as of this encounter
--- OUTSIDE RECORDS SUMMARY | 2024-07-15 14:27 | XMS_ITS | Encounter Summary ---
Author Organization [facility] [place] [address] Care Team Providers Care Medical Records Library Professor Name Role Phone Aurelia Bobby MD Primary Care Provider [phone] Encounter Details Date Type Department Care Team (Late Contact Info) Description 06/26/2023 5:20 PM EDT Ext Surgery or Single Event [address] [id number] Mat Cruz MD [facility] [place] [address] Lightheadedness Social History Tobacco Use Types Packs/Day Years [...] 4:30 PM EDT Office Visit Dermatology at [facility] [address] [place] [address] Ruma Echavarria MD [facility] [place] [address] documented as of this encounter Procedures Procedure Name Priority Date/Time Associated Diagnosis Comments ECHO SCAN (SCAN) 06/26/2023 12:0 0 AM EDT documented in this encounter Results * SCAN DOC: ECHO (06/26/2023 12:00 AM EDT) Anatomical Region Laterality Modality Cardiac Other Narrative 06/26/2023 12:00 AM EDT Ordered by an unspecified provider. Scanning Provider MEDIA MGR SCAN EXT O RDR/RSLT documented in this encounter Visit Diagnoses Diagnosis Lightheadedness Dizziness and giddiness documented in this encounter Care Teams Medical Records Library Professor Relationship Specialty Start Date End Date Aurelia Bobby MD [address] [place] [address] PCP - General 08/31/14 01/23/24 documented as of this encounter
--- OUTSIDE RECORDS SUMMARY | 2024-07-15 14:27 | XMS_ITS | Encounter Summary ---
[place] [address] Care Team Providers Care Social Media Marketing Analyst Name Role Phone Aurelia Bobby MD Primary Care Provider [phone] Reason for Visit * Reason Onset Date Comments Appointment 08/30/2022 Encounter Details Date Type Department Care Team ([facility] st Contact Info) Description 08/30/2022 Telephone Neurology at [address] [phone] [place] [address] Appointment Social History Tobacco Use Types Packs/Day [...] encounter Miscellaneous Notes * Telephone Encounter - Jessa Parmar - 08/30/2022 10:27 AM EDT Scheduling Instructions Provider: Salena Nicole MD Visit Type: Follow Up (paste FATOUMATA Instructions or manually enter): Schedule after MRI exams Appt Note: Follow Up w/ MR Results Additional Info Needed: Patient needs to provide when available to come in for her MRI exams-Please transfer to Jessa for scheduling documented in this encounter Plan of Treatment Upcoming Encounters Date Type Department Care Team (Late st Contact Info) Description 09/01/2024 4:30 PM EDT Office Visit Dermatology at [facility] [address] [place] [address] Ruma Echavarria MD [facility] DR [place] [address] documented as of this encounter Visit Diagnoses Not on filedocumented in this encounter Care Teams Social Media Marketing Analyst Relationship Specialty Start Date End Date Aurelia Bobby MD [address] [place] [address] PCP - General 08/31/14 01/23/24 documented as of this encounter
--- OUTSIDE RECORDS SUMMARY | 2024-07-15 14:27 | XMS_ITS | Encounter Summary ---
Author Organization [facility] Address [facility] [place] [address] Care Team Providers Care Product Tester Fiberglass Name Role Phone Aurelia Bobby MD Primary Care Provider Encounter Details Date Type Department Care Team (Latest Contact Info) Description 01/21/2023 Travel Social History Tobacco Use Types Packs/Day [...] 4:30 PM EDT Office Visit Dermatology at [facility] [address] [place] [address] Ruma Echavarria MD [facility] DR ABDIRAHMAN [place] [address] documented as of this encounter Visit Diagnoses Not on filedocumented in this encounter Care Teams Product Tester Fiberglass Relationship Specialty Start Date End Date Aurelia Bobby MD [address] [place] [address] [address] [place] [address] PCP - General 08/31/14 01/23/24 documented as of this encounter
--- OUTSIDE RECORDS SUMMARY | 2024-07-15 14:27 | XMS_ITS | Encounter Summary ---
[place] [address] Care Team Providers Care Director Child Name Role Phone Aurelia Bobby MD Primary Care Provider Reason for Referral * Diagnostic Test (Routine) - Closed Specialty Diagnoses / Procedures Referred By Bk t Referred To Contact Radiology Diagnoses Lung cancer metastatic to brain Procedures MRI Angiogram Neck w Contrast MRI Angiogram Neck wwo Contrast (Generic) [place] [address] [place] [address] Referral ID Status Reason Start Date Expiration Date V isits Requested Visits Authorized [id number] Closed Specialty Service Requested 08/29/2022 02/28/2024 1 1 * Diagnostic Test (Routine) - Closed Specialty Diagnoses / Procedures Referred By Bk de leon Referred To Contact Radiology Diagnoses Lung cancer metastatic to brain Procedures MRI Angiogram Head wo & MRI Brain wwo Contrast MRI Angiogram Head & MRI Brain wwo Contrast [place] [address] [place] [address] Referral ID Status Reason Start Date Expiration Date V isits Requested Visits Authorized [id number] Closed Specialty Service Requested 08/29/2022 02/28/2024 1 1 Reason for Visit * Diagnostic Test (Routine) - Closed Specialty Diagnoses / Procedures Referred By Bk de leon Referred To Contact Radiology Diagnoses Lung cancer metastatic to brain Procedures MRI Angiogram Head wo & MRI Brain wwo Contrast MRI Angiogram Head & MRI Brain wwo Contrast [place] [address] [place] [address] Referral ID Status Reason Start Date Expiration Date V isits Requested Visits Authorized [id number] Closed Specialty Service Requested 08/29/2022 02/28/2024 1 1 Encounter Details Date Type Department Care Team (Latest Contact Info) Description 09/07/2022 6:15 AM EDT - 09/07/2022 11:59 PM EDT Hospital [place] [phone] [place] [address] Concern for lung cancer metastatic to brain [...] 4:30 PM EDT Office Visit Dermatology at [facility] [address] [place] [address] Ruma Echavarria MD [facility] DR ABDIRAHMAN AGU[place] [address] documented as of this encounter Procedures Procedure Name Priority Date/Time Associated Diagnosis Comments MRI ANGIOGRAM HEAD WO & MRI BRAIN WWO CONTRAST Routine 09/07/2022 7:17 AM EDT Concern for lung cancer metastatic to brain MRI NECK ANGIOGRAM WITH CONTRAST Routine 09/07/2022 7:17 AM EDT Concern for lung cancer metastatic to brain documented in this encounter Results * MRI Angiogram Neck w Contrast (09/07/2022 7:17 AM EDT) Anatomical Region Laterality Modality Neck Magnetic Resonan ce Impressions 09/07/2022 8:03 AM EDT Probable severe short segment focal stenosis at the origin of the codominant right vertebral artery. No other site of more than mild stenosis in the large arteries of the neck Thank you for letting us participate in the care of this patient. ??If you are a health care provider and have any questions regarding this report, please contact the number below. ??For patients who have questions please contact the health rn urgent care that requested your imaging first. ? Narrative 09/07/2022 8:03 AM EDT EXAMINATION: MRI ANGIOGRAM NECK W CONTRAST CLINICAL HISTORY: rule out secondary causes of new onset left V1, V2 pain any structural reasons for this pain TECHNIQUE: MRA of the neck performed with the intravenous administration of 11cc Dotarem. 3-D MIP reconstructions were created. COMPARISON: None FINDINGS: The origins the great vessels from the aortic arch show no focal stenosis. There is apparent severe stenosis at the origin of the codominant right vertebral artery. The left vertebral artery is of normal course and caliber. There is only minor irregularity of the proximal internal carotid arteries and the degree of stenosis at these sites is minor. Procedure Note Gallito Burt MD - 09/07/2022 EXAMINATION: MRI ANGIOGRAM NECK W CONTRAST CLINICAL HISTORY: rule out secondary causes of new onset left V1, V2pain any structural reasons for this pain TECHNIQUE: MRA of the neck performed with the intravenous administration of 11ccDotarem. 3-D MIP reconstructions were created. COMPARISON: None FINDINGS: The origins the great vessels from the aortic arch show no focal stenosis.There is apparent severe stenosis at the origin of the codominant rightvertebral artery. The left vertebral artery is of normal course and caliber. Thereis only minor irregularity of the proximal internal carotid arteries and thedegree of stenosis at these sites is minor. IMPRESSION Probable severe short segment focal stenosis at the origin of thecodominant right vertebral artery. No other site of more than mild stenosis in the large arteries of theneck Thank you for letting us participate in the care of this patient. If youare a health care provider and have any questions regarding this report,please contact the number below. For patients who have questions please contactthe health rn urgent care that requested your imaging first. Salena Nicole MD IMG MRI ORDERABLES * MRI Angiogram Head wo & MRI Brain wwo Contrast (09/07/2022 7:17 AM EDT) Anatomical Region Laterality Modality Head Magnetic Resonan ce Impressions 09/07/2022 7:58 AM EDT 1. ??Increase in number of small foci of white matter signal abnormality within the cerebral hemispheres and scott, a nonspecific finding most commonly reflecting small vessel ischemia. 2. ??Small old right thalamic lacunar infarct. 3. ??No cerebral aneurysm or evidence of vascular malformation. Thank you for letting us participate in the care of this patient. ??If you are a health care provider and have any questions regarding this report, please contact the number below. ??For patients who have questions please contact the health rn urgent care that requested your imaging first. ? Narrative 09/07/2022 7:58 AM EDT EXAMINATION: MRI ANGIOGRAM HEAD WO & MRI BRAIN WWO CONTRAST CLINICAL HISTORY: new onest left sided headache with rhinorrea, left V1, V2 distribution ruling out secondary structures causing pain TECHNIQUE: MRI of the brain was performed before and after the intravenous administration of 11cc Dotarem. ??MR Angiogram of the head without contrast was also performed. 3-D MIP reconstructions were created. COMPARISON: MRI brain of 01/20/2016. CT face of 02/28/2022. FINDINGS: MRI brain: Ventricles and sulci are unchanged in size and configuration. There is interval increase in the number of small foci of T2 prolongation in the white matter of the bilateral cerebral hemispheres and scott. These foci are somewhat more numerous on the left. There is an old right thalamic lacunar infarct. No acute intracranial hemorrhage, extra-axial collection, mass, abnormal enhancement, or acute infarction is present. The orbits and intracranial flow-voids are of normal appearance. No mass or abnormal enhancement is evident along the expected courses of the trigeminal nerves. MRA head: Intracranial arteries are of normal course and caliber. There is no focal stenosis, cerebral aneurysm, or evidence of vascular malformation. Procedure Note Gallito Burt MD - 09/07/2022 EXAMINATION: MRI ANGIOGRAM HEAD WO & MRI BRAIN WWO CONTRAST CLINICAL HISTORY: new onest left sided headache with rhinorrea, left V1,V2 distribution ruling out secondary structures causing pain TECHNIQUE: MRI of the brain was performed before and after the intravenousadministration of 11cc Dotarem. MR Angiogram of the head without contrast was alsoperformed. 3-D MIP reconstructions were created. COMPARISON: MRI brain of 01/20/2016. CT face of 02/28/2022. FINDINGS: MRI brain: Ventricles and sulci are unchanged in size and configuration.There is interval increase in the number of small foci of T2 prolongation in thewhite matter of the bilateral cerebral hemispheres and scott. These foci aresomewhat more numerous on the left. There is an old right thalamic lacunar infarct.No acute intracranial hemorrhage, extra-axial collection, mass, abnormal enhancement, or acute infarction is present. The orbits and intracranial flow-voids are of normal appearance. No mass or abnormal enhancement is evident along the expected courses ofthe trigeminal nerves. MRA head: Intracranial arteries are of normal course and caliber. There isno focal stenosis, cerebral aneurysm, or evidence of vascular malformation. IMPRESSION 1. Increase in number of small foci of white matter signal abnormalitywithin the cerebral hemispheres and scott, a nonspecific finding most commonly reflecting small vessel ischemia. 2. 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 3. No cerebral aneurysm or evidence of vascular malformation. Thank you for letting us participate in the care of this patient. If youare a health care provider and have any questions regarding this report,please contact the number below. For patients who have questions please contactthe health rn urgent care that requested your imaging first. Salena Nicole MD [facility] MRI ORDERABLES documented in this encounter Visit Diagnoses Diagnosis Concern for lung cancer metastatic to brain documented in this encounter Administered Medications Inactive Administered Medications - up to 3 most recent administrations Medication Order MAR Action Action Date Dose Rate Site gadoterate meglumine (Dotarem) (0.5 mMol/mL) injection solution 0-100 mL 0-100 mL, Intravenous, ONCE PRN, 1 dose, Starting on Sat09/07/22 at 0644, Until Sat09/07/22 at 0700, Per Protocol, Radiology Contrast, Routine Given 09/07/2022 7:00 AM EDT 11 mLs documented in this encounter Care Teams Director Child Relationship Specialty Start Date End Date Aurelia Bobby MD [address] [place] [address] PCP - General 08/31/14 01/23/24 documented as of this encounter
--- OUTSIDE RECORDS SUMMARY | 2024-07-15 14:27 | XMS_ITS | Encounter Summary ---
[place] [address] Care Team Providers Care Transaction Coordinator Name Role Phone Aurelia Bobby MD Primary Care Provider [phone] Encounter Details Date Type Department Care Team (Late st Contact Info) Description 08/30/2022 Telephone Neurology at [address] [address] [place] [address] Social History Tobacco Use Types Packs/Day Years [...] Telephone Encounter - Salena Nicole MD - 08/30/2022 4:25 PM EDT Unfortunately, Medicare will NOT pay for home oxygen for this patient. She will need a walk test toprove that her saturation is under 88% while ambulating. I called the patient re: above. I asked her to contact her pulmonology office see if there was someway to do a stress test for oxygen saturation. I have offered to do a test here as well, but cautioned that since we are a headache clinic, we will be more conservative with the walk test. Recommendations - Plan: she will contact her pulmonology office (not with [facility]) regarding oxygen and walk/stress test. Even if she does not qualify, we still have options for rescue therapy (see below) - Rescue: ONB with steroids, SPG blocks. She has CAD so cannot receive DHE or triptans. Salena Nicole MD Headache Fellow, [facility] Headache Clinic 08/30/2022 * Telephone Encounter - Yumiko Ames RN - 08/30/2022 3:12 PM EDT Home oxygen order, clinic note, demographics faxed to [facility]. F; [phone]. documented in this encounter Plan of Treatment Upcoming Encounters Date Type Department Care Team (Late st Contact Info) Description 09/01/2024 4:30 PM EDT Office Visit Dermatology at [facility] [address] [place] [address] Ruma Echavarria MD [facility] DR ABDIRAH[place] [address] documented as of this encounter Visit Diagnoses Not on filedocumented in this encounter Care Teams Transaction Coordinator Relationship Specialty Start Date End Date Aurelia Bobby MD [address] [place] [address] [address] [place] [address] PCP - General 08/31/14 01/23/24 documented as of this encounter
--- OUTSIDE RECORDS SUMMARY | 2024-07-15 14:27 | XMS_ITS | Encounter Summary ---
[place] [address] Care Team Providers Care Preparole Counseling Aide Name Role Phone Aurelia Bobby MD Primary Care Provider [phone] Encounter Details Date Type Department Care Team (Late st Contact Info) Description 03/26/2023 Telephone Neurology at [address] [address] [place] [address] Social History Tobacco Use Types Packs/Day Years [...] Telephone Encounter - Yumiko Ames RN - 03/26/2023 1:05 PM EDT Call made to Isaura. I advised her leather skinner has approved the oxygen use for her cluster headache. Isaura verbalized understanding. Oxygen should be delivered this afternoon. * Telephone Encounter - Yumiko Ames RN - 03/26/2023 11:06 AM EDT Copied from [facility] #[id number]. Topic: Specialty Dept CRMs - Generic Call >> March 26, 2023 10:58 AM Saige Peterson wrote: Specialist: Bonnie Relationship (if other than patient-full name): self Reason for Call: Patient calling to check if Dr Nicole has spoken to her leather skinner to get the Ok for her to use O2 as it will be delivered to her today between 1-3. Please call to advise so she may stop the delivery if need be. documented in this encounter Plan of Treatment Upcoming Encounters Date Type Department Care Team (Late st Contact Info) Description 09/01/2024 4:30 PM EDT Office Visit Dermatology at [facility] [address] [place] [address] Ruma Echavarria MD [facility] DR ABDIRAHMAN [place] [address] documented as of this encounter Visit Diagnoses Not on filedocumented in this encounter Care Teams Preparole Counseling Aide Relationship Specialty Start Date End Date Aurelia Bobby MD [address] [facility] [address] [place] [address] PCP - General 08/31/14 01/23/24 documented as of this encounter
--- OUTSIDE RECORDS SUMMARY | 2024-07-15 14:27 | XMS_ITS | Encounter Summary ---
[place] [address] Care Team Providers Care Police Lieutenant Patrol Name Role Phone Aurelia Bobby MD Primary Care Provider [phone] Reason for Referral * Diagnostic Test (Routine) - New Request Specialty Diagnoses / Procedures Referred By Bk de leon Referred To Contact Radiology Diagnoses Non-small cell carcinoma of left lung, stage [address] Chest wo Contrast (Generic) Yumi Frausto APRN [facility] [place] [address] [facility] [place] [address] Referral ID Status Reason Start Date Expiration Date Visits Requested Visits Authorized [id number] New Request Specialty Service Requested 3 03/10/2025 1 1 Reason for Visit * Reason Comments Follow-up Encounter Details Date Type Department Care Team ([facility] st Contact Info) Description 09/04/2023 10:15 AM EDT Office Visit Hematology [place] [address] Tres Graham MD [facility] [place] [address] Yumi Frausto APRN [facility] DR MEDICAL ONCOLOGY [place] [id number] Non-small cell carcinoma of left lung, stage [...] Sign Reading Time Taken Comments Blood Pressure 151/70 09/04/2023 10:32 AM EDT Pulse 69 09/04/2023 10:32 AM EDT Temperature 36.7 ??C (98.1 ??F) 09/04/2023 10:32 AM E DT Respiratory Rate 22 09/04/2023 10:32 AM EDT Oxygen Saturation 100% 09/04/2023 10:32 AM EDT Inhaled Oxygen Concentration - - Weight 62.2 kg (137 lb 2 oz) 09/04/2023 10:32 AM EDT Height 163.5 cm (5' 4.37) 09/04/2023 10:32 AM E DT Body Mass Index 23.27 09/04/2023 10:32 AM EDT documented in this encounter Progress Notes * Yumi Frausto APRN - 09/04/2023 10:15 AM EDT Thoracic Oncology Follow-up Evaluation HPI: 64 year old female with stage 1B lung adenocarcinoma [id number], s/p JOHNNY lobectomy on 08/09/2014 (surgery revealed a 1.8 cm moderately differentiated adenocarcinoma. No LVI. +visceral pleura invasion. Closest margin 3.5cm. 3 hilar LNs negative, a level 5 LN negative, 10L sump node negative, level 11 LN negative, level 7 LN negative, level 9 LN negative). INTERVAL HISTORY Last seen 09/04/22. She presents today for follow up and restaging. She recently had a CT scan at outside hospital for cardiac workup, no concerning malignancy noted or progression seen. She continues to follow with neurology for cluster headaches. She is otherwise doing well. Energy level is generally fine. Continues to walk, has started golfing which she enjoys. Doing her normal activities. Eating [...] PGF both from colon cancer Denies other FH cancer Son - 31, well Daughter - 38, well Social , 2 grown children. 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 Physical Examination Vitals: 09/04/23 1032 BP: 151/70 Patient Position: Sitting Pulse: 69 Resp: 22 Temp: 36.7 ??C (98.1 ??F) TempSrc: Temporal SpO2: 100% Weight: 62.2 kg (137 lb 2 oz) Height: 163.5 cm (5' 4.37) Wt Readings from Last 3 Encounters: 09/04/23 62.2 kg (137 lb 2 oz) 05/23/23 59.4 kg (131 lb) 03/20/23 59 kg (130 lb) General: alert, conversant, NAD HEENT: conjunctiva clear Neck: no palpable cervical or supraclavicular lymphadenopathy CVS: regular S1S2 without MRG Chest: CTAB, no crackles or wheezes, mildly decreased breath sounds throughout Abdomen: soft, NT, ND, BS+ Extremities: no edema, no calf tenderness Neuro: ambulatory, CN 2-12 grossly intact, moves all 4 extremities Skin: no visible rashes Lab Results No results found for this or any previous visit (from the past 24 hour(s)). Latest Reference Range & Units 09/04/23 09:12 WBC 4.0 - 9.5 x10(3)/mcL 7.0 RBC 4.00 - 5.21 x10(6)/mcL 4.56 Hemoglobin 11.7 - 15.5 g/dL 14.4 Hematocrit 35.7 - 45.8 % 44.2 MCV 82.6 - 94.4 fL 96.9 (H) MCH 27.1 - 32.0 pg 31.6 MCHC 31.7 - 35.0 g/dL 32.6 RDWSD 37.0 - 46.0 fL 52.5 (H) RDWCV 11.5 - 14.1 % 14.7 (H) Platelets 145 - 357 x10(3)/mcL 267 MPV 7.6 - 12.9 fL 9.0 nRBC % Auto % 0.0 nRBC Abs Auto 0.000 - 0.000 x10(3)/mcL 0.000 Neutr Abs (ANC) 1.70 - 6.10 x10(3)/mcL 3.93 Neutrophils % % 56.1 Immature Gran % % 0.30 Lymphocytes % % 32.0 Monocytes % % 8.1 Eosinophils % % 2.4 Basophils % % 1.1 Pavithra Gran Abs 0.00 - 0.04 x10(3)/mcL 0.02 Lymphocytes Abs 0.9 - 3.2 x10(3)/mcL 2.2 Monocyte Abs 0.3 - 0.9 x10(3)/mcL 0.6 Eosinophils Abs 0.0 - 0.4 x10(3)/mcL 0.2 Basophils Abs 0.0 - 0.1 x10(3)/mcL 0.1 Sodium 135 - 145 mmol/L 140 Potassium 3.5 - 5.0 mmol/L 4.3 Chloride 98 - 107 mmol/L 106 CO2 22 - 31 mmol/L 28 Anion Gap 5 - 15 mmol/L 6 BUN 8 - 18 mg/dL 15 Creatinine 0.70 - 1.20 mg/dL 0.58 (L) Estimated GFR >=60 mL/min/1.73 m?? 97 Calcium 8.5 - 10.5 mg/dL 9.8 Glucose Lvl 65 - 199 mg/dL 96 Total Protein 6.1 - 8.0 g/dL 7.1 Albumin 3.2 - 5.2 g/dL 4.7 Total Bilirubin 0.2 - 1.3 mg/dL 0.3 Alk Phos 35 - 105 unit/L 89 AST 0 - 30 unit/L 14 ALT 0 - 30 unit/L 13 LDH 110 - 220 unit/L 146 (H): Data is abnormally high (L): Data is abnormally low Radiology: Recent outside CT chest was personally reviewed with Dr. Graham with no evidence of disease recurrence A/P: A 66-year-old patient with history of [...] to follow with neurology for cluster HAs. She is following with cardiology as well for light-headedness with exertion. ECHO 59%. No interventions Perioral Dermatitis, currently doxycycline RTC in 1 year with labs, chest CT wo contrast, clinic. I advised to call if there are any fever, shortness of breath, new pain, weakness, bleeding or any other unusual medical symptoms. Yumi Frausto APRN documented in this encounter Plan of Treatment Upcoming Encounters Date Type Department Care Team (Late st Contact Info) Description 09/01/2024 4:30 PM EDT Office Visit Dermatology at [facility] [address] [place] [place] [address] Ruma Echavarria MD [facility] DR ABDIRAHMAN [place] [address] Scheduled Orders Name Type Priority Associated Diagnoses Orde r Schedule CT Chest wo Contrast (Generic) Imaging Routine Non-small cell carcinoma of left lung, stage 1 Expected: 09/08/2024 (Approximate), Expires: 03/10/2025 CBC (with Diff) Lab STAT Non-small cell carcinoma of left lung, stage 1 Expected: 09/08/2024 (Approximate), Expires: 03/10/2025 Comprehensive metabolic panel (non-fasting) Lab STAT Non-small cell carcinoma of left lung, stage 1 Expected: 09/08/2024 (Approximate), Expires: 03/10/2025 Lactate Dehydrogenase Lab STAT Non-small cell carcinoma of left lung, stage 1 Expected: 09/08/2024 (Approximate), Expires: 03/10/2025 documented as of this encounter Visit Diagnoses Diagnosis Non-small cell carcinoma of left lung, stage 1 documented in this encounter Care Teams Police Lieutenant Patrol Relationship Specialty Start Date End Date Aurelia Bobby MD [address] [facility] [address] [place] [address] PCP - General 08/31/14 01/23/24 documented as of this encounter
--- OUTSIDE RECORDS SUMMARY | 2024-07-15 14:27 | XMS_ITS | Encounter Summary ---
Author [place] [address] Care Team Providers Care Biology Manager Name Role Phone Aurelia Bobby MD Primary Care Provider [phone] Reason for Referral * Diagnostic Test (Routine) - Closed Specialty Diagnoses / Procedures Referred By Bk de leon Referred To Contact Radiology Diagnoses Non-small cell carcinoma of left lung, stage [address] Chest wo Contrast (Generic) Elsie Cruz APRN [facility] DR HEMATOLOGY[place] [address] [facility] [place] [address] Referral ID Status Reason Start Date Expiration Date V isits Requested Visits Authorized [id number] Closed Specialty Service Requested 08/24/2021 02/21/2023 1 1 Reason for Visit * Diagnostic Test (Routine) - Closed Specialty Diagnoses / Procedures Referred By Bk de leon Referred To Contact Radiology Diagnoses Non-small cell carcinoma of left lung, stage [address] Chest wo Contrast (Generic) Elsie Cruz APRN [facility] HEMATOLOGY[place] [address] [facility] [place] [address] Referral ID Status Reason Start Date Expiration Date V isits Requested Visits Authorized [id number] Closed Specialty Service Requested 08/24/2021 02/21/2023 1 1 Encounter Details Date Type Department Care Team (Latest Contact Info) Description 09/04/2022 9:23 AM EDT - 09/04/2022 9:44 AM EDT Hospital [place] [address] Elsie Cruz, MICHAELLE [facility] HEMATOLOGY-[place] [address] Non-small cell carcinoma of left lung, stage [...] 4:30 PM EDT Office Visit Dermatology at [facility] [address] [place] [address] Ruma Echavarria MD [facility] DR ABDIR[place] [address] documented as of this encounter Procedures Procedure Name Priority Date/Time Associated Diagnosis Comments CT CHEST WO CONTRAST (GENERIC) Routine 09/04/2022 9:30 AM EDT Non-small cell carcinoma of left lung, stage 1 documented in this encounter Results * CT Chest wo Contrast (Generic) (09/04/2022 9:30 AM EDT) Anatomical Region Laterality Modality Chest Computed Tomogra phy 09/04/2022 12:3 9 PM EDT Impressions 09/04/2022 10:54 AM EDT No evidence of local recurrence or metastasis in the chest. I have personally reviewed the image(s) and the resident's interpretation and agree with the findings, Edvin Spence MD at 09/04/2022 10:54 AM Thank you for letting us participate in the care of this patient. ??If you are a health care provider and have any questions regarding this report, please contact the number below. ??For patients who have questions please contact the health childcare worker that requested your imaging first. ? Electronically signed by: Edvin Spence MD, [facility] ([phone]), at 09/04/2022 10:54 AM Narrative 09/04/2022 10:54 AM EDT EXAMINATION: CT CHEST WO CONTRAST (GENERIC) CLINICAL HISTORY: Non-small cell lung cancer, post treatment, no evidence of disease Lung cancer s/p treatment- surveillance scan TECHNIQUE: CT of the chest without contrast. Coronal and sagittal reformatted images were generated. COMPARISON: CT chest 08/23/2021 FINDINGS: Pulmonary parenchyma: Status post left upper lobectomy. No nodularity along the surgical margins. Stable bilateral calcified granulomas. Unchanged sub 4 mm subpleural nodules in the right lower lobe for instance on series 4 images 57, 61, and 67. No new or enlarging pulmonary nodule. Airways: The large airways are widely patent. Pleura: No effusions. Lymph nodes, mediastinum and thom: No mass or lymphadenopathy. Heart, pericardium, and great vessels: Normal cardiac size. No pericardial effusion. Unchanged enlarged ascending thoracic aorta measuring 3.5 cm on series 3 image 53. Coronary artery and aortic calcifications. Lower neck: Unremarkable thyroid gland. No visible cervical lymphadenopathy. Upper abdomen: Stable left adrenal adenoma. Unchanged splenic parenchymal calcifications. Body wall soft tissues: Normal. Skeletal structures: Degenerative changes in the spine. No suspicious lesions. Procedure Note Edvin Spence MD - 09/04/2022 EXAMINATION: CT CHEST WO CONTRAST (GENERIC) CLINICAL HISTORY: Non-small cell lung cancer, post treatment, no evidenceof disease Lung cancer s/p treatment- surveillance scan TECHNIQUE: CT of the chest without contrast. Coronal and sagittalreformatted images were generated. COMPARISON: CT chest 08/23/2021 FINDINGS: Pulmonary parenchyma: Status post left upper lobectomy. No nodularityalong the surgical margins. Stable bilateral calcified granulomas. Unchanged sub 4mm subpleural nodules in the right lower lobe for instance on series 4 fitecp42, 61, and 67. No new or enlarging pulmonary nodule. Airways: The large airways are widely patent. Pleura: No effusions. Lymph nodes, mediastinum and thom: No mass or lymphadenopathy. Heart, pericardium, and great vessels: Normal cardiac size. Nopericardial effusion. Unchanged enlarged ascending thoracic aorta measuring 3.5 cm onseries 3 image 53. Coronary artery and aortic calcifications. Lower neck: Unremarkable thyroid gland. No visible cervicallymphadenopathy. Upper abdomen: Stable left adrenal adenoma. Unchanged splenicparenchymal calcifications. Body wall soft tissues: Normal. Skeletal structures: Degenerative changes in the spine. No suspiciouslesions. IMPRESSION No evidence of local recurrence or metastasis in the chest. I have personally reviewed the image(s) and the resident's interpretationand agree with the findings, Edvin Spence MD at 09/04/2022 10:54 AM Thank you for letting us participate in the care of this patient. If youare a health care provider and have any questions regarding this report,please contact the number below. For patients who have questions please contactthe health childcare worker that requested your imaging first. Elsie C Nancy ASSISTANT COMMISSIONER IMG CT ORDERABLES documented in this encounter Visit Diagnoses Diagnosis Non-small cell carcinoma of left lung, stage 1 documented in this encounter Care Teams Biology Manager Relationship Specialty Start Date End Date Aurelia Bobby MD [address] [facility] [address] [place] [address] PCP - General 08/31/14 01/23/24 documented as of this encounter
--- OUTSIDE RECORDS SUMMARY | 2024-07-15 14:27 | XMS_ITS | Encounter Summary ---
[place] [address] Care Team Providers Care Crime Victim Specialist Name Role Phone Aurelia Bobby MD Primary Care Provider [phone] Encounter Details Date Type Department Care Team (Late st Contact Info) Description 06/04/2023 Telephone Neurology at [address] [address] [place] [address] Social History Tobacco Use Types Packs/Day Years [...] Encounter - Yumiko Ames RN - 06/04/2023 2:10 PM EDT Please see note from today. * Telephone Encounter - Yumiko Ames RN - 06/04/2023 10:51 AM EDT Copied from CRM #[id number]. Topic: Specialty Dept CRMs - Medication Issues >> Jun 04, 2023 10:43 AM Vinny Multani wrote: Medication Issues Specialist Dr. Salena Nicole Relationship (if other than patient-full name): Patient Reason for call: Medication Issue (if symptom based used Triage Subtopic) Message/information for the nurse: Unable to get medication. Name of Medication: lidocaine (Xylocaine) 2 % Solution Issue with the medication: Patient called and stated there is a national back order on this medication and she was unable to get it. Patient would like to know if there is an alternative. Please callto advise. documented in this encounter Plan of Treatment Upcoming Encounters Date Type Department Care Team (Late st Contact Info) Description 09/01/2024 4:30 PM EDT Office Visit Dermatology at [address] [place] [address] Ruma Echavarria MD [facility] DR ABDIRAH[place] [address] documented as of this encounter Visit Diagnoses Not on filedocumented in this encounter Care Teams Crime Victim Specialist Relationship Specialty Start Date End Date Aurelia Bobby MD [address] [place] [address] [address] [facility] [address] [place] [address] PCP - General 08/31/14 01/23/24 documented as of this encounter
--- OUTSIDE RECORDS SUMMARY | 2024-07-15 14:27 | XMS_ITS | Encounter Summary ---
Author Organization On License [facility] Address [facility] [place] [address] Care Team Providers Care Electroneurodiagnostic Technician Name Role Phone Aurelia Bobby MD Primary Care Provider [phone] Encounter Details Date Type Department Care Team (Latest Contact Info) Description 03/20/2023 Travel Social History Tobacco Use Types Packs/Day [...] PM EDT Office Visit Dermatology at [facility] [address] [place] [address] Ruma Echavarria MD [facility] DR ABDIRAHMAN [place] [address] documented as of this encounter Visit Diagnoses Not on filedocumented in this encounter Care Teams Electroneurodiagnostic Technician Relationship Specialty Start Date End Date Aurelia Bobby MD [address] [place] [address] [address] [place] [address] PCP - General 08/31/14 01/23/24 documented as of this encounter
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
--- OUTSIDE RECORDS SUMMARY | 2024-07-15 14:27 | XMS_ITS | Encounter Summary ---
[place] [address] Care Team Providers Care Drum Dyeing Machine Operator Name Role Phone Aurelia Bobby MD Primary Care Provider [phone] Encounter Details Date Type Department Care Team (Late st Contact Info) Description 09/12/2022 Telephone Neurology at [address] [address] [place] [address] Social History Tobacco Use Types Packs/Day Years [...] Telephone Encounter - Yumiko Ames RN - 09/12/2022 4:16 PM EDT [facility] patient assistance form mailed to Isaura. I explained the form to Isaura and she is aware that she needs to complete the form and mail back to the Headache Clinic with proof of income. documented in this encounter Plan of Treatment Upcoming Encounters Date Type Department Care Team (Late st Contact Info) Description 09/01/2024 4:30 PM EDT Office Visit Dermatology at [facility] [address] [place] [address] Ruma Echavarria MD [facility] DR ABDIRAH[place] [address] documented as of this encounter Visit Diagnoses Not on filedocumented in this encounter Care Teams Drum Dyeing Machine Operator Relationship Specialty Start Date End Date Aurelia Bobby MD [address] [place] [address] [address] [facility] [address] [place] [address] PCP - General 08/31/14 01/23/24 documented as of this encounter
--- OUTSIDE RECORDS SUMMARY | 2024-07-15 14:27 | XMS_ITS | Encounter Summary ---
[place] [address] Care Team Providers Care Last Remodeler Repairer Name Role Phone Aurelia Bobby MD Primary Care Provider [phone] Encounter Details Date Type Department Care Team (Late st Contact Info) Description 01/23/2024 Telephone [place] [phone] Donavanlindsay Michellej luis Social History Tobacco Use Types Packs/Day Years [...] encounter Miscellaneous Notes * Telephone Encounter - Tex Mosqueda - 01/23/2024 3:32 PM EST Isaura Arellano [id number] Diagnosis/Indication: 18 month Please review patient chart to confirm if previous Endoscopy procedure was performed within system. If yes, take note of Anesthesia type used. If previous procedure found, and with MAC/propofol Anesthesia support was used, schedule this procedure with Anesthesia and skip the Anesthesia portion of questions. If not performed within system, not performed at all, or performed with IVCS, ask Anesthesia questions. SCHEDULING QUESTIONS (ask all patient these questions) Have you ever had a/an Upper Endoscopy before? Yes: Date 08/23/22 If yes, did you have any problems with the procedure (such as waking up during the procedure, pain or difficulties afterwards, etc.)? No What type of sedation was used: IV Conscious Sedation (ASK ONLY FOR COLONOSCOPY PROCEDURES) Are you aware, or have you ever been told that you had a poor prep or failed prep with a previous colonoscopy? No If yes, assign the Extended MiraLAX Prep (ASK ONLY FOR COLONOSCOPY PROCEDURES) Do you have an ongoing history of constipation? (E.g., hard stools, >2 days without a bowel movement, straining or difficulty passing stool) No If yes, assign the Extended MiraLAX Prep Do you take any blood thinners or have you been diagnosed with a bleeding disorder that increases your risk of bleeding with procedures? No Do you have a Pacemaker or Defibrillator device? If yes, send pool message to Cardiology with patient information and date or procedure. No Do you have diabetes? If yes, call PCP/managing provider to discuss use of prep and any questions or concerns related to. No If yes, assign the Extended MiraLAX Prep Do you take any iron supplements or vitamins that contain iron? No Do you have a preference regarding the gender of your provider? No ANESTHESIA QUESTIONS (YES to any question, please book with Anesthesia support) Have you ever been diagnosed with Pulmonary Hypertension and/or Congential Heart Disease? No Have you been diagnosed with A-Fib (atrial fibrillation) that is NOT being well controled with medications? No Have you ever had an allergic or adverse reaction to Fentanyl or Versed? No Have you had a problem with sedation or anesthesia? (Waking up during procedure, extreme confusion after, etc.) Yes doesn't do well with propofol Do you have a diagnosis of Obstructive Sleep Apnea that requires the use of a c- pap machine? No Do you use an oxygen tank at home? No Do you use a rescue inhaler more than twice per day? (COPD, severe asthma) No Do you experience breathing problems when you lay flat for a period of time? No Do you regularly take prescription opioid pain medications on a daily basis? (Includes oxycodone, Percocet, Suboxone, methadone, etc.) No If yes, assign the Extended MiraLAX Prep SCHEDULING CONFIRMATIONS: Please note any and all parts of your conversation with the patient here. We offer all new patients an opportunity to have an appointment with one of our associate care providers to learn more about your upcoming procedure, ask questions and get answers. These appointmentsare offered via telehealth. Would you be interested in scheduling this appointment? (Only ask if NEW referral patient; skip this question if [facility] provider ordered the procedure.) No Is there any other information or concerns you would like to us to share with your care team in relation to your upcoming scheduled procedure? No You must have a responsible republican who will drive you to your procedure, stay on campus for the entire duration of your procedure, and drive you home from your procedure. Who will likely be your production truck driver for the procedure? *Please Verify the height and weight, and adjust if height and/or weight have changed* Estimated body mass index is 23.69 kg/m?? as calculated from the following: Height as of 09/09/23: 162.6 cm (5' 4). Weight as of 09/09/23: 62.6 kg (138 lb). Age:73 y.o. documented in this encounter Plan of Treatment Upcoming Encounters Date Type Department Care Team (Late st Contact Info) Description 09/01/2024 4:30 PM EDT Office Visit Dermatology at [facility] [address] [place] [address] Ruma Echavarria MD [facility] DR ABDIRAHMAN [place] [address] documented as of this encounter Visit Diagnoses Not on filedocumented in this encounter Care Teams Last Remodeler Repairer Relationship Specialty Start Date End Date Aurelia Bobby MD [address] [place], [place] [address]Y [facility] 1 [place] [address] PCP - General 08/31/14 01/23/24 documented as of this encounter
--- OUTSIDE RECORDS SUMMARY | 2024-07-15 14:27 | XMS_ITS | Encounter Summary ---
[place] [address] Care Team Providers Care Crystallizer Operator Name Role Phone Aurelia Bobby MD Primary Care Provider [phone] Reason for Visit * Reason Onset Date Comments Results 03/19/2023 Prior Authorization 03/19/2023 Encounter Details Date Type Department Care Team (Late st Contact Info) Description 03/19/2023 Telephone Neurology at [address] [phone] [place] [address] Results; Prior Authorization Social History Tobacco Use Types Packs/Day Years [...] Telephone Encounter - Yumiko Ames RN - 03/20/2023 3:42 PM EDT Today's clinic note faxed to [facility] in order to get home oxygen for Isaura for her cluster headaches. Faxed to [phone]. * Telephone Encounter - Yumiko Ames RN - 03/19/2023 3:13 PM EDT Copied from [facility] #[id number]. Topic: Specialty Dept CRMs - Medication Issues >> Mar 19, 2023 2:56 PM Corinne Ibanez wrote: Medication Issues Specialist Salena Nicole MD Relationship (if other than patient-full name): Shital Zamora medical Reason for call: Medication Issue (if symptom based used Triage Subtopic) Message/information for the nurse:Shital called stating she needs more recent chart notes regardingpatient's cluster headaches so they can fill the patient's home, the notes sent were from last August. Please fax to fax:[phone] Name of Medication: Home Oxygen Issue with the medication: see above documented in this encounter Plan of Treatment Upcoming Encounters Date Type Department Care Team (Late st Contact Info) Description 09/01/2024 4:30 PM EDT Office Visit Dermatology at [address] [address] Ruma Echavarria MD [facility] DR ABDIRAHMAN [place] [address] documented as of this encounter Visit Diagnoses Not on filedocumented in this encounter Care Teams Crystallizer Operator Relationship Specialty Start Date End Date Aurelia Bobby MD [address] [place] [address] [address] [place] [address] PCP - General 08/31/14 01/23/24 documented as of this encounter
--- OUTSIDE RECORDS SUMMARY | 2024-07-15 14:27 | XMS_ITS | Encounter Summary ---
Author Organization [facility] [place] [address] Care Team Providers Care Hazardous Waste Material Technician Name Role Phone Aurelia Bobby MD Primary Care Provider [phone] Encounter Details Date Type Department Care Team (Late st Contact Info) Description 07/17/2023 Abstract Cardiology at [address] [phone] Jennifer Wheatley, RN Social History Tobacco Use [...] PM EDT Office Visit Dermatology at [facility] [address] [place] [address] Ruma Echavarria MD [facility] [address] ABDIR[address] [address] documented as of this encounter Visit Diagnoses Not on filedocumented in this encounter Care Teams Hazardous Waste Material Technician Relationship Specialty Start Date End Date Aurelia Bobby MD [address] [facility] 1 [place] [address] PCP - General 08/31/14 01/23/24 documented as of this encounter
--- OUTSIDE RECORDS SUMMARY | 2024-07-15 14:27 | XMS_ITS | Encounter Summary ---
[place] [address] Care Team Providers Care Basic Combatant Swimmer Name Role Phone Aurelia Bobby MD Primary Care Provider [phone] Encounter Details Date Type Department Care Team (Late st Contact Info) Description 03/21/2023 Telephone Neurology at [address] [phone] [place] [address] Social History Tobacco Use Types Packs/Day Years [...] Telephone Encounter - Yumiko Ames RN - 03/21/2023 2:46 PM EDT Clinic note from 03/20/23 faxed to [facility] for home oxygen . documented in this encounter Plan of Treatment Upcoming Encounters Date Type Department Care Team (Late st Contact Info) Description 09/01/2024 4:30 PM EDT Office Visit Dermatology at [facility] [address] [place] [address] Ruma Echavarria MD [facility] [address] ABDIRAH[place] [address] documented as of this encounter Visit Diagnoses Not on filedocumented in this encounter Care Teams Basic Combatant Swimmer Relationship Specialty Start Date End Date Aurelia Bobby MD [address] [place] [address] [address] [facility] 1 [place] [address] PCP - General 08/31/14 01/23/24 documented as of this encounter
--- OUTSIDE RECORDS SUMMARY | 2024-07-15 14:27 | XMS_ITS | Encounter Summary ---
Author Organization [facility] Address [facility] [place] [address] Care Team Providers Care Account Auditor Name Role Phone Aurelia Bobby MD Primary Care Provider [phone] Encounter Details Date Type Department Care Team (Latest Contact Info) Description 09/04/2023 Travel Social History Tobacco Use Types Packs/Day [...] 4:30 PM EDT Office Visit Dermatology at [facility] [address] [place] [address] Ruma Echavarria MD [facility] DR ABDIRAH[address] [place] [address] documented as of this encounter Visit Diagnoses Not on filedocumented in this encounter Care Teams Account Auditor Relationship Specialty Start Date End Date Aurelia Bobby MD [address] [place] [address] [address] [place] [address] PCP - General 08/31/14 01/23/24 documented as of this encounter
--- OUTSIDE RECORDS SUMMARY | 2024-07-15 14:28 | XMS_ITS | Encounter Summary ---
Author Organization [facility] [place] [address] Care Team Providers Care Clinical Application Specialist Name Role Phone Aurelia Bobby MD Primary Care Provider [phone] Encounter Details Date Type Department Care Team (Latest Contact Info) Description 08/23/2022 12:46 PM EDT - 08/23/2022 3:37 PM EDT Hospital En[place] [address] Sung Gruber MD [facility] [place] [address] Discharge Disposition: Home Social History Tobacco Use [...] Sign Reading Time Taken Comments Blood Pressure 127/79 08/23/2022 3:20 PM EDT Pulse 58 08/23/2022 3:00 PM EDT Temperature - - Respiratory Rate 18 08/23/2022 3:20 PM EDT Oxygen Saturation 97% 08/23/2022 3:20 PM EDT Inhaled Oxygen Concentration - - Weight 57.2 kg (126 lb) 08/23/2022 1:30 PM EDT Height 162.6 cm (5' 4) 08/23/2022 1:30 PM EDT Body Mass Index 21.63 08/23/2022 1:30 PM EDT documented in this encounter Discharge Instructions * Discharge Instructions* Katarina Ferrer RN - 08/23/2022 3:01 PM EDT Upper Endoscopy (EGD) and Colonoscopy: What to Expect at Home Your Recovery After you have an EGD and colonoscopy, you will stay at the clinic for 1 to 2 hours until the medicines wear off. Then you can go home. But you will need to arrange for a ride. Your doctor will tell you when you can eat and do your other usual activities. Your doctor will talk to you about when you will need your next colonoscopy. Your doctor can help you decide how often you need to be checked. This will depend on the results of your test and your risk for colorectal cancer. You may have a sore throat for a day or two after the test. After the test, you may be bloated or have gas pains. You may need to pass gas. If a biopsy was done or a polyp was removed, you may have streaks of blood in your stool (feces) for a few days. Problems such as heavy rectal bleeding may notoccur until several weeks after the test. This isn't common. But it can happen after polyps are emil dana. This care sheet gives you a general idea about how long it will take for you to recover. But each person recovers at a different pace. Follow the steps below to get better as quickly as possible. How can you care for yourself at home? Activity Rest when you feel tired. You can do your normal activities when it feels okay to do so. Diet Follow your doctor's directions for eating. Unless your doctor has told you not to, drink plenty of fluids. This helps to replace the fluids that were lost during the colon prep. Do not drink alcohol. Medicines If you have a sore throat the day after the test, use an bmlt-tfg-wwzklbn spray or lozenges to numbyour throat. Warm salt water gargles can also help the discomfort. Your doctor will tell you if and [...] include ibuprofen (Advil, Motrin) and naproxen (Aleve). Other instructions for patients who received sedation: You may have received medications during the procedure which effect your judgement and reaction time. For your safety, do not drive or [...] fully understand what you are agreeing to. Be careful on stairs and when standing up quickly as you may be unsteady on your feet. IV site: Slight redness or tenderness is normal. You can use a warm compress if you would like. If tenderness and/or redness increase or if foul drainage occurs, please contact your doctor. Please call [phone] before 8pm Mon-Fri with problems, questions, or concerns. If you call after 8pm or on weekends, call the Hospital at [phone] and ask for the Academic Affairs Coordinator transfusion nurse and the wastewater plant operator will contact that person for you. When should you call for help? Call 121 anytime you think you may need emergency [...] fever. You cannot pass stools or gas. Your throat still hurts after a day or two. Your throat still hurts after a day or two. Watch closely for changes in your health, and be sure to contact your doctor if you have any problems. Where can you learn more? You can view health information on [employer], your personal patient account. Log in or sign up today. Content Version: 12.2 ?? [id number] [email or web address]. Care instructions adapted under license by [facility]. If you have questions about a medical condition or this instruction, always ask your healthcare professional. [employer] disclaims any warranty or liability for your use of this information. documented in this encounter Medications at Time of Discharge Medication Sig Dispensed Refills Start Date End Date sertraline (Zoloft) 50 mg Tablet Take 75 mg by mouth daily. 07/03/2022 aspirin EC 81 mg Tablet, Delayed Release (E.C.) Take 81 mg by mouth daily. robbgrvkvtp-sqpvmxjrj-v ilanter (Trelegy Ellipta) 100-62.5-25 mcg Disk with Device [...] Capsule Take 1 capsule by mouth daily. VITAMIN B COMPLEX-100 ORAL Take 100 Units by mouth daily. 03/31/2018 09/09/2023 albuterol (PROVENTIL HFA;VENTOLIN HFA;PROAIR) 90 mcg/actuation HFA Aerosol Inhaler Inhale 2 puffs into the lungs as needed for Wheezing. Use with spacer 01/28/2024 fluticasone-umeclidiniu m-vilanterol (Trelegy Ellipta) 100-62.5-25 mcg Daily 03/17/2021 01/25/2023 rosuvastatin (Crestor) 10 mg Tablet Take 10 mg by mouth daily. 01/25/2023 xeqisfvbidb-fuqjbbukx-p ilanter (Trelegy Ellipta) 100-62.5-25 mcg Disk with Device Inhale 1 puff into the lungs daily. 01/25/2023 ibuprofen (Advil;Motrin) 200 mg Tablet Take 200 mg by mouth every 6 hours as needed for Pain. 01/25/2023 clonazePAM (KlonoPIN) 0.5 mg Tablet 0.5 mg as needed. 03/03/2014 clonazePAM (KLONOPIN) 1 mg Tablet Take 1 tablet by mouth nightly. 14 tablet 01/14/2019 08/29/2022 cholecalciferol, Vitamin D3, 25 mcg (1,000 unit) Capsule Take by mouth. 01/25 documented as of this encounter H&P Notes * Sung Gruber MD - 08/23/2022 1:51 PM EDT Procedure: egd/colonoscopy Indication: stomach polyp, bowel changes History of Present Illness: Isaura Arellano is a 72 y.o. woman here for egd and colonoscopy to follow up on 1. Gastric adenoma with HGD in 2018 2. Change in bowels marked by constipation and outlet bleeding, history of polyps and several 1st and second degree relatives with colon cancer. She is not sure when her last coloscopy was performed - she thinks it was here - historical record shows 2009 Patient Active Problem List Diagnosis Code ??? Non-small cell carcinoma of left lung, stage 1 C34.92 ??? Abnormal auditory perception H93.299 ??? Colon polyp K63.5 ??? Depression F32.A ??? Herpes simplex virus (HSV) infection B00.9 ??? Hypertension I10 ??? Lacunar infarction I63.81 ??? Major depressive disorder F32.9 ??? Alcohol withdrawal F10.239 ??? Arthralgia M25.50 ??? Arthralgia of hip M25.559 ??? Postconcussion syndrome F07.81 ??? Memory impairment R41.3 ??? Unilateral complete paralysis of vocal cord J38.01 ??? Tinnitus H93.19 ??? Ganglion M67.40 Medications: Reviewed in EDH Allergies Allergen Reactions ??? Gabapentin Other reaction(s): Made me crazy ??? Propofol Other reaction(s): Other (See Comment) ??? Ancef [Cefazolin] Rash Social History/Family History: Reviewed in EDH. No changes Exam: Patient Vitals for the past 24 hrs: Pulse BP SpO2 O2 Device 08/23/22 1330 65 (!) 141/96 98 % RA 08/23/22 1331 -- 125/71 -- -- Axox3, nad Anicteric, MMM CTAB RRR, no m/r/g abd soft nt nd +bs Assessment and Plan: Proceed with EGD: Colonoscopy: ASA Grade: ASA 2 - Patient with mild systemic disease with no functional limitations Mallampati score:II (soft palate, uvula, fauces visible) Sedation plan: Moderate Conscious sedation Risks and benefits of the procedure were discussed with the patient. Consent has been signed. Sung Gruber MD documented in this encounter Plan of Treatment Upcoming Encounters Date Type Department Care Team (Late st Contact Info) Description 09/01/2024 4:30 PM EDT Office Visit Dermatology at [facility] [address] [place] [address] Ruma Echavarria MD [facility] DR ABDIRAH[address] [place] [address] documented as of this encounter Procedures Procedure Name Priority Date/Time Associated Diagnosis Comments SURGICAL PATHOLOGY REPORT Routine 08/23/2022 2:52 PM EDT SPECIMEN TO PATHOLOGY Routine 08/23/2022 2:52 PM EDT Colonoscopy, Remv Stefania, Snare ([id number]) 08/23/2022 2:06 PM EDT 1 year follow up EGD/. Upper GI Endoscopy, Diagnostic ([id number]) 08/23/2022 2:06 PM EDT 1 year follow up EGD/. UPPER GI ENDOSCOPY Routine 08/23/2022 2: 01 PM EDT COLONOSCOPY Routine 08/23/2022 2:01 PM EDT documented in this encounter Results * Surgical Pathology Report (08/23/2022 2:52 PM EDT) Final Diagnosis [id number] ? Location: 4T; EA10; A The signing pathologist has (i) examined the relevant preparation(s) for the specimen(s) and (ii) rendered or confirmed the diagnosis(es). . ?Surgical Pathology DIAGNOSIS A - Polyps CE 1mm x 2, excision: - ??No tissue present. Electronically signed by: ?Gadiel CALVO, Farhan Verified: ??08/29/2022 13:48 ??Pathologist Performed at: ??-[facility] [place] Dept. of Pathology, [place], [place] SPECIMEN(S) SUBMITTED A - Polyps CE 1mm x 2, excision (2) CLINICAL INFORMATION Colonoscopy history of polyps FHX CRC. SPECIMEN PROCESSING A - Labeled/Fixativ e: Polyps CE 1 mm ? 2, formalin. Quantity/Size: Fragments, 0.3 x 0.2 x 0.2 cm. Tissue Description: Aggregate of collins-green organic material with possible scant tissue fragments. Sections/Proces sing: Entirely submitted in 1 cassette labeled A1. ??jnr 08/29/2022 1:48 PM EDT [facility] GI Biopsy 08/23/2022 2:52 PM EDT 08/23/2022 2:52 PM EDT Sung Gruber MD PATHOLOGY/CYTOLOGY O RDERABLES [facility] [place] [address] * Specimen to Pathology (08/23/2022 2:52 PM EDT) AP Specimen 08/23/2022 2:52 PM EDT 08/23/2022 2:52 PM EDT Narrative [facility] - 08/23/2022 2:52 PM EDT Specimen requisition ordered. ??Separate Pathology report to follow Sung Gruber MD PATHOLOGY/CYTOLOGY O RDERABLES [facility] [place] [address] * UPPER GI ENDOSCOPY (08/23/2022 2:01 PM EDT) UPPER GI ENDOSCOPY [facility] Endoscopy Procedure Date: 08/23/2022 2:01 PM ? Patient Name: Isaura Arellano ? Date of : 1950 ? Age: 72 ? Order #: [id number] ? Instrument Name: [id number] ? Procedure: ? Upper GI endoscopy Indications: ? Follow-up of gastric polyps Providers: ? Sung Gruber, Rodger Gonzalez, ? April PLASCENCIA MD: ?Aurelia Bobby MD Medicines: ? Fentanyl 225 micrograms IV, ? Midazolam 7 mg IV Complications: ? No immediate complications. Procedure: ? [...] the mouth, and ? advanced to the second part of ? duodenum The patient tolerated the ? procedure well. ? Findings: ? The examined esophagus was normal. ? The entire examined stomach was normal. ? The ampulla was normal. Examined with a duodenoscope ? There was a small lipoma in the second portion of the ? duodenum. ? Moderate Sedation: ? Moderate (conscious) sedation was administered by the ? endoscopy nurse and supervised by the endoscopist. ? The following parameters were monitored: oxygen ? saturation, heart rate, blood pressure, and response ? to care. Impression: ?- Normal esophagus. ? - Normal stomach. ? - Normal ampulla. ? - Duodenal lipoma. ? - No specimens collected. Recommendation: ?- Repeat upper endoscopy in 1-2 ? years for surveillance. ? - Perform a colonoscopy. ? Attending Participation: ? I personally performed the entire procedure. ? Sung Mario Yasmani, 08/23/2022 2:33:58 PM Number of Addenda: 0 Note Initiated On: 08/23/2022 2:01 PM [facility]ATION 08/23/2022 2:01 PM EDT Aurelia Bobby MD GENERAL SURGICAL ORD ERABLES [facility] * COLONOSCOPY (08/23/2022 2:01 PM EDT) COLONOSCOPY [facility] Endoscopy Procedure Date: 08/23/2022 2:01 PM ? Patient Name: Isaura Arellano ? N: [id number] ? Date of : 1950 ? Age: 72 ? Order #: [id number] ? Instrument Name: [id number] ? Procedure: ? Colonoscopy Indications: ? Rectal bleeding, Constipation Providers: ? Sung Gruber, Rodger Gonzalez, ? THAIS, April Magana MD: ?Aurelia Bobby MD Medicines: ? None, See [...] Bobby MD GENERAL SURGICAL ORD ERABLES [employer]ATION documented in this encounter Visit Diagnoses Not on filedocumented in this encounter Administered Medications Inactive Administered Medications - up to 3 most recent administrations Medication Order MAR Action Action Date Dose Rate Site lactated ringers infusion 100 mL/hr, Intravenous, CONTINUOUS, Starting on Halle 08/23/22 at 1345, Until Halle 08/23/22 at 1527, Endoscopy (Day of Procedure) New Bag 08/23/2022 1:42 PM EDT 100 mL/hr 100 mL/hr documented in this encounter Active and Recently Administered Medications Times are shown in EDT. Continuous Medication Order 08/21/2022 08/22/2022 08/23/2022 lactated ringers infusion (CANCELED) 100 mL/hr, Intravenous, CONTINUOUS, Starting on Halle 08/23/22 at 1345, Until Halle 08/23/22 at 1527, Endoscopy (Day of Procedure) 1342 (New Bag - Prov ider: Lala Craig RN) PRN Medication Order 08/21/2022 08/22/2022 08/23/2022 fentaNYL (pf) (50 mcg/mL) multi-dose injection (CANCELED) ONCE PRN, Starting on Halle 08/23/22 at 1407, Until Halle 08/23/22 at 1737, Intra-Operative (Intra-Procedure), Routine 1407 (Given - Provid er: oRdger Gonzalez RN)1410 (Given - Provider: Rodger Gonzalez RN)1413 (Given - Provider: Rodger Gonzalez RN)1416 (Given - Provider: Rodger Gonzalez RN)1419 (Given - Provider: Rodger Gonzalez RN)1430 (Given - Provider: Rodger Gonzalez RN) midazolam (pf) (Versed) (1 mg/mL) multi-dose injection (CANCELED) ONCE PRN, Starting on Halle 08/23/22 at 1407, Until Halle 08/23/22 at 1737, Intra-Operative (Intra-Procedure), Routine 1407 (Given - Provid er: Rodger Gonzalez RN)1410 (Given - Provider: Rodger Gonzalez RN)1413 (Given - Provider: Rodger Gonzalez RN)1416 (Given - Provider: Rodger Gonzalez RN)1419 (Given - Provider: Rodger Gonzalez RN)1430 (Given - Provider: Rodger Gonzalez RN) documented in this encounter Care Teams Clinical Application Specialist Relationship Specialty Start Date End Date Aurelia Bobby MD [address] [place] [address] PCP - General 08/31/14 01/23/24 documented as of this encounter
--- OUTSIDE RECORDS SUMMARY | 2024-07-15 14:28 | XMS_ITS | Encounter Summary ---
Author Organization [facility] [place] [address] Care Team Providers Care Rn Endoscopy Name Role Phone Aurelia Bobby MD Primary Care Provider Encounter Details Date Type Department Care Team (Late st Contact Info) Description 02/28/2022 Ancillary Procedure [place] [address] Aurelia Bobby MD [address] [place] [address] [address] [facility] 1 [place], [place] [id number] Social History Tobacco Use Types Packs/Day Years [...] 4:30 PM EDT Office Visit Dermatology at [facility] [address] [place] [address] Ruma Echavarria MD [facility] [place] [address] documented as of this encounter Procedures Procedure Name Priority Date/Time Associated Diagnosis Comments FILM LIBRARY- STORAGE ONLY CT FACE Routine 02/28/2022 12:00 AM EDT documented in this encounter Results * Film Library-Storage Only CT Face (02/28/2022 12:00 AM EDT) Narrative [facility] - 05/22/2022 8:36 PM EDT This exam is auto-finalizing. It's purpose is for storage only. Aurelia Bobby MD IMG FILM LIBRARY ORD ERABLES [place], [place] documented in this encounter Visit Diagnoses Not on filedocumented in this encounter Care Teams Rn Endoscopy Relationship Specialty Start Date End Date Aurelia Bobby MD [address] [place] [address] [address] [place] [address] PCP - General 08/31/14 01/23/24 documented as of this encounter
--- OUTSIDE RECORDS SUMMARY | 2024-07-15 14:28 | XMS_ITS | Encounter Summary ---
Author Organization [facility] [place] [address] Care Team Providers Care Pedicurist Name Role Phone Aurelia Bobby MD Primary Care Provider [phone] Encounter Details Date Type Department Care Team (Late st Contact Info) Description 06/27/2021 10:45 AM EDT - 06/27/2021 7:38 PM EDT Hospital Encounter [place] [id number] Kiko Lira II, MD [facility] [place] [address] Abnormal stress test; Chest discomfort Discharge Disposition: Home Social History Tobacco Use [...] Sign Reading Time Taken Comments Blood Pressure 131/80 06/27/2021 7:02 PM EDT Pulse 67 06/27/2021 6:15 PM EDT Temperature 36.3 ??C (97.3 ??F) 06/27/2021 6:40 PM ED T Respiratory Rate 16 06/27/2021 7:00 PM EDT Oxygen Saturation 97% 06/27/2021 7:02 PM EDT Inhaled Oxygen Concentration - - Weight 62.3 kg (137 lb 6.4 oz) 06/27/2021 2:05 P M EDT Height 162.6 cm (5' 4.02) 06/27/2021 3:00 PM ED T Body Mass Index 23.57 06/27/2021 2:05 PM EDT documented in this encounter Discharge Instructions * Patient Instructions* Ernie Rivas MD - 06/27/2021 4:29 PM EDT Radial Access for Heart Cath Activity Try to avoid bending your wrist for the first 12-24 hours after the procedure to allow the artery to fully heal. Do not participate in active sports for 48 hours. Do not lift anything greater than 5 lbs. Catheter Insertion Area Care Take the dressing off of the catheter insertion site the morning following the procedure. Leave thesite open to air. If the site is oozing you may cover it with a band aid. You may take a shower if you wish. Look for signs of infection over the next several days. It is uncommon to have any visible blood at the site, any obvious bleeding is abnormal. A bruise around the wrist or small lump under the skin is normal: they generally disappear in 3-5 days. Expect some mild tenderness over the area where the catheter was inserted. You will notice this after the local anesthetic (numbing medicine) wears off. This should improve during the 24-48 hours after the procedure. You may use acetaminophen (tylenol) if needed. Contact your doctor if the discomfort worsens. Problems to Watch for If there is bright red blood flowing from the catheter insertion area: *stop what you are doing *hold pressure steadily on the area for 15 minutes *call for help *if the bleeding does not stop in 15 minutes call 911 for an ambulance. If there is swelling with black and blue color at the catheter insertion site, there may be bleeding inside. Contact the doctor if there is any increase in size. Look at the insertion site for the first few days at home. Signs of infection are: *redness *swelling *yellow, white, green or brown foul smelling drainage. *increased soreness If you think there is an infection, take your temperature. Then call your doctor. The limb on the side where you had your catheterization should look and feel normal in color, sensation, and temperature. If your hand or fingers become cool, pale, blue or change color contact your doctor. If you are having numbness or tingling in your fingers or hand contact your doctor. Follow-up: No future appointments. Your Inpatient Doctor: Kiko Lira II, MD Your Primary Care Provider: Aurelia Bobby MD [phone] For questions regarding this document or issues relating to this hospitalization on the Medical Service, please contact your inpatient physician through the [facility] [employer] . Issues afterhours and on weekends will be handled by the Hospitalist staff on-call. documented in this encounter Medications at Time of Discharge Medication Sig Dispensed Refills Start Date End Date aspirin EC 81 mg Tablet, Delayed Release (E.C.) Take 81 mg by mouth daily. noymjxqdpnl-rnqluyjaa-n ilanter (Trelegy Ellipta) 100-62.5-25 mcg Disk with [...] Take 10 mg by mouth daily. 01/25/2023 vvpawbjbfjw-ggzrelcgh-c ilanter (Trelegy Ellipta) 100-62.5-25 mcg Disk with [...] mouth. 01/25 documented as of this encounter Progress Notes * Maria Ines Ho RN - 06/27/2021 7:26 PM EDT Pt with R radial access dressing clean and dry, radial pulse 2+, color sensation and motion intact,no s/s of hematoma. Tolerating turkey sandwich and gingerale without difficulty. Complaint of headache, which she thought probably arose from positioning and foregoing food and fluids all day; headache improving after she ate, and pt stated that the pain was tolerable and declined medication. AVS re viewed with patient and and all questions answered and understanding verbalized, sling provided for RUE. Pt up to void and ambulate without difficulty. documented in this encounter H&P Notes * Ernie Rivas MD - 06/27/2021 3:28 PM EDTSummary: Pre-cath Images from the original note were not included. Patient Name: Isaura Arellano Patient Age: 70 y.o. Birthdate: 1950 Admit date: 06/27/2021 Attending Physician: Kiko Lira II, MD Pre Cardiac Catheterization Note 70 y.o. female presents for [facility]. She is followed by Dr. Rosado at [facility] where she was evaluated for syncope. She had a nuclear stress 05/16/2021 which showed 1/2 mm STD inferiorly, she went 11METS and had no perfusion defects. She had a CT coronary given the equivocal results and had findings as noted below. She notes some limited dyspnea with exertion which is not significantly abnormal.She has had syncopal events with a negative holter monitor. Hx: FH heart disease, smoker, hypertension. IMPRESSION 1. Coronary calcium score of 1767, consistent with severe atherosclerotic plaque burden and 99th%-ile rank for subjects of the same age, gender, and race/ethnicity who are free of clinical cardiovascular disease and treated diabetes. 2. Numerous coronary stenoses, generally minimal (1-24%) or mild (25-49%), but focal moderate (50-69%) stenoses appear present in proximal circumflex, mid right coronary, and LAD immediately after D1 takeoff. CAD-RADS score 3. Potential hemodynamically significant. Correlate with functional assessment. No planned upcoming surgeries. No recent or ongoing bleeding events. No black stools. BP 127/73 (BP Location (NBP): Left arm) Pulse 62 Temp 36.5 ??C (97.7 ??F) (Temporal) Resp 18 Wt 62.3 kg (137 lb 6.4 oz) SpO2 97% BMI 23.58 kg/m?? Gen: Pleasant female in no apparent distress, able to lay flat Cor: rrr, s1/s2 of nl character and amplitude, no m/r/g. jvp not elevated Pulm: CTAB Ext: Bilateral Cristian's Test positive (both the radial and ulnar arteries alone provide ample circulation to the hand arcade). Femoral arteries are with adequate upstroke and without overlying evidence of infection. DP/PT ++ Neuro: No focal deficit ASA: 2: Patient with mild systemic disease Mallampati: II: tonsillar pillars are blocked by the tongue Last 3 wbc, hgb, hct plt Recent Labs 06/27/21 1057 WBC 8.0 HGB 14.5 HCT 44.7 PLATELET 278 Last 3 Lytes Recent Labs 06/27/21 1057 NA 139 K 3.7 CL 101 CO2 27 BUN 8 CREATININE 0.63* Previous Catheterization: None The indications, expected benefits, and potential risks of heart catheterization were reviewed in detail with the patient. The potential for , heart attack, stroke, kidney failure, hemorrhage, allergic reaction, vascular complications and infection were reviewed in detail. The possibility of stenting and other percutaneous intervention, with associated risk, was reviewed. The possible need for emergent coronary artery bypass surgery was reviewed. Alternatives were discussed and the patient's questions were answered in full. Following this discussion, the patient consented to the procedure and signed a form attesting to this, which is in the chart. Plan: Coronary Angio via radial vs. Femoral. No C/I to long-term DAPT Moderate Sedation OK Ernie Rivas MD 06/27/2021 documented in this encounter Miscellaneous Notes * Brief Op Note - Kiko Lira II - 06/27/2021 4:31 PM EDT Preliminary Cardiac Catheterization Procedure Note: Isaura Arellano June 27, 2021 [id number] [phone] Mobile Marketing Manager - Preliminary Findings Procedures: coronary angiography left heart catheterization Technique: Seldinger via right radial artery. Heparin: 4,000U administered. Contrast: 70cc Omnipaque. Radiation: Fluoro time: 5.3 minutes, dose area product: 32,147 mGYcm2 and air kerma: 621 mGY. Findings: Hemodynamics: Syst Diast EDP a v m Ao 143 73 101 LV 140 14 Coronary Angiography: Right Dominant LM Distal - 30%. LAD Ostial - 30%. Mid - Mild diffuse. Calcified. LCX Proximal - 40%. Distal - Mild diffuse. RCA Proximal - Mild diffuse. Calcified. Mid 1 - Mild diffuse. Calcified. Mid 2 - 40% diffuse. Complications/Events: None The attending physician was present for the entire procedure. Dr. Kiko Lira M.D. performed the coronary angiography and left heart catheterization. Davon Lisa M.D. (Fellow) Ernie Rivas M.D. (Fellow) Kiko Lira M.D. documented in this encounter Plan of Treatment Upcoming Encounters Date Type Department Care Team (Late st Contact Info) Description 09/01/2024 4:30 PM EDT Office Visit Dermatology at [facility] [address] [place] [address] Ruma Echavarria MD [facility] [address] ABD[facility] [place] [address] documented as of this encounter Procedures Procedure Name Priority Date/Time Associated Diagnosis Comments CARDIAC CATHETERIZATION Routine 06/27/20 4:30 PM EDT Abnormal stress test Chest discomfort EKG 12-LEAD Routine 06/27/2021 1:51 PM EDT Abnormal stress test Chest discomfort HC VENIPUNCTURE STAT 06/27/2021 10:57 AM EDT HEMOGRAM STAT 06/27/2021 10:57 AM EDT DIFFERENTIAL, AUTOMATED STAT 06/27/20 10:57 AM EDT HC CBC,PLT & AUTO DIFF STAT 10:57 AM EDT documented in this encounter Results * CARDIAC CATHETERIZATION (06/27/2021 4:30 PM EDT) Anatomical Region Laterality Modality Other Narrative 06/27/2021 4:44 PM EDT ?[facility] ? Cardiac Catheterization/Intervention Report ? Patient Name: Arellano, Isaura L. ? Procedure Date: 06/27/2021 ? A #: [id number] ? Primary Physician: Larimore, Kiko W ? Case #: [id number] ? File Name: [id number] ? Catheterization Order Number: [id number] ? [facility] ? Final Report [place], [place] ? Patient Name: ? Isaura L. Arellano ? ID#: ?[id number] ? : ?1950 ? Procedure Date: ? June 27, 2021 ? Case #: ? [id number] ? Room: ? 5 ? Case Physician: ? Kiko Lira M.D. ?Start: ?15:53 ?Fellow: ? Ernie Rivas M.D. ?Admission: ??06/27/2021 ?Davon Lisa M.D. ? Referring Physician: ??Jagdish Rosado M.D. ? Procedures: ?* Coronary Angiography ?* Left Heart Catheterization ? History ?Isaura Arellano is a 70 year old woman. She has hypertension. The ?patient's smoking status is Never. Prior to the initiation of this ?procedure, the patient was designated as ASA Class III. The CSHA clinical ?frailty scale is 3: Managing Well. ? Diagnostic Tests: ?Prior Coronary Angiography: ? LV ejection fraction within 6 months is 55%. ?Electrocardiography: ? EKG was assessed by ECG. EKG was Normal. ?Stress or Imaging Studies: ? A stress test with SPECT imaging was performed on 05/16/2021 and was ? Negative. A stress test with CMR imaging was performed on 06/15/2021 ? and was Positive. ?Medications Prior to Procedure: ? Aspirin and Statin. ? Indications for Diagnostic Cath: ?The priority of the diagnostic procedure was Urgent. The indication for ?the lab nurse visit is suspected CAD. Chest pain symptom assessment was: ?Asymptomatic. ? Technique: ?A 6 SLFr sheath was inserted in the right radial artery utilizing the ?Seldinger technique. The left coronary artery was injected utilizing a ?5Fr JL 3.5 catheter. A 5Fr JR 4 catheter was used to inject the right ?coronary artery. Left ventricular pressure was performed with a 5Fr JR 4 ?catheter. 4,000 units of heparin were administered. A total of 100cc of ?Omnipaque were opened, 70cc of Omnipaque were administered and 30cc of ?Omnipaque were wasted. Radiation: Fluoro time was 5.3 minutes, dose area ?product was 32,147 mGYcm2 and air kerma was 621 mGY. See the case log for ?additional details. ?The patient received the following medications prior to and during the ?procedure: ? Unfractionated Heparin. ? Hemodynamics: ?Left Heart Pressures ? Resting: ? Syst Diast ? EDP ?a ?v ? m ?Ao 143 ?? 73 ?101 ?LV 140 ? 14 ? Coronary Angiography: ?Dominance: Right ?Left Main ? There was a 30% single discrete stenosis of the distal segment of ? the left main artery. ?Left Anterior Descending ? There was a 30% single discrete stenosis of the ostial segment of ? the left anterior descending artery (LAD). ??The mid segment of the ? LAD had mild diffuse (<=25% stenosis) disease and it was also ? calcified. ?Left Circumflex ? There was a 40% single discrete stenosis of the proximal segment of ? the left circumflex artery (LCX). ??The distal segment of the LCX had ? mild diffuse (<=25% stenosis) disease. ?Right Coronary Artery ? There was mild diffuse (<=25% stenosis) disease of the proximal ? segment of the right coronary artery (RCA) and it was calcified. ? The mid 1 segment of the RCA had mild diffuse (<=25% stenosis) ? disease and it was also calcified. ??There also was a 40% diffuse ? stenosis of the mid 2 segment of the RCA. ? Vascular Access: ?Vascular Access Management: ? Manual Compression of the right radial artery access site was ? performed. ? Conclusions: ?* Nonobstructive coronary artery disease ? Complications/Events: ?The patient had no complications during these procedures. ?The attending physician was present for the entire procedure. ?Dr. Kiko Lira M.D. was present during the moderate sedation ?intraservice time as documented by the sedation nurse. ??Case time = 00:25. ?Dr. Kiko Lira M.D. performed the coronary angiography and left ?heart catheterization. ? Kiko Lira M.D. ? Electronically Signed by: Kiko Lira M.D. ? Report Finalized: 06/27/2021 ??16:37 ? Procedure Note Kiko Lira II, MD - 06/27/2021 [facility] Cardiac Catheterization/Intervention Report Patient Name: Isaura Arellano Procedure Date: 06/27/2021 A #: [id number] Primary Physician: Kiko Lira Case #: [id number] File Name: [id number] Catheterization Order Number: [id number] [facility] FinalReport [place], [place] Patient Name: Isaura Arellano ID#:[id number] :1950 Procedure Date: June 27, 2021 Case #: [id number] Room: 5 Case Physician: Kiko Lira M.D. Start: 15:53 Fellow: Ernie Rivas M.D. Admission:06/27/2021 Davon Lisa M.D. Referring Physician: Jagdish Rosado M.D. Procedures: * Coronary Angiography * Left Heart Catheterization History Isaura Arellano is a 70 year old woman. She has hypertension. The patient's smoking status is Never. Prior to the initiation of this procedure, the patient was designated as ASA Class III. The CSHAclinical frailty scale is 3: Managing Well. Diagnostic Tests: Prior Coronary Angiography: LV ejection fraction within 6 months is 55%. Electrocardiography: EKG was assessed by ECG. EKG was Normal. Stress or Imaging Studies: A stress test with SPECT imaging was performed on 05/16/2021nd was Negative. A stress test with CMR imaging was performed on06/15/2021 and was Positive. Medications Prior to Procedure: Aspirin and Statin. Indications for Diagnostic Cath: The priority of the diagnostic procedure was Urgent. The indicationfor the lab nurse visit is suspected CAD. Chest pain symptom assessmentwas: Asymptomatic. Technique: A 6 SLFr sheath was inserted in the right radial artery utilizingthe Seldinger technique. The left coronary artery was injected utilizinga 5Fr JL 3.5 catheter. A 5Fr JR 4 catheter was used to inject theright coronary artery. Left ventricular pressure was performed with a 5FrJR 4 catheter. 4,000 units of heparin were administered. A total of 100ccof Omnipaque were opened, 70cc of Omnipaque were administered and 30ccof Omnipaque were wasted. Radiation: Fluoro time was 5.3 minutes, dosearea product was 32,147 mGYcm2 and air kerma was 621 mGY. See the caselog for additional details. The patient received the following medications prior to and duringthe procedure: Unfractionated Heparin. Hemodynamics: Left Heart Pressures Resting: Syst Diast EDP a v m Ao 143 73 101 LV 140 14 Coronary Angiography: Dominance: Right Left Main There was a 30% single discrete stenosis of the distal segmentof the left main artery. Left Anterior Descending There was a 30% single discrete stenosis of the ostial segmentof the left anterior descending artery (LAD). The mid segment ofthe LAD had mild diffuse (<=25% stenosis) disease and it was also calcified. Left Circumflex There was a 40% single discrete stenosis of the proximalsegment of the left circumflex artery (LCX). The distal segment of theLCX had mild diffuse (<=25% stenosis) disease. Right Coronary Artery There was mild diffuse (<=25% stenosis) disease of the proximal segment of the right coronary artery (RCA) and it wascalcified. The mid 1 segment of the RCA had mild diffuse (<=25% stenosis) disease and it was also calcified. There also was a 40%diffuse stenosis of the mid 2 segment of the RCA. Vascular Access: Vascular Access Management: Manual Compression of the right radial artery access site was performed. Conclusions: * Nonobstructive coronary artery disease Complications/Events: The patient had no complications during these procedures. The attending physician was present for the entire procedure. Dr. Kiko Lira M.D. was present during the moderate sedation intraservice time as documented by the sedation nurse. Case time =00:25. Dr. Kiko Lira M.D. performed the coronary [facility]. Kiko Lira M.D. Electronically Signed by: Kiko Lira M.D. Report Finalized: 06/27/2021 16:37 Kiko Lira II, MD CARDIAC CATH OR DERABLES * EKG 12 Lead (06/27/2021 1:51 PM EDT) Ventricular rate 60 BPM MUSE SYSTEM Atrial Rate 60 BPM MUSE SYSTEM P-R Interval 144 ms MUSE SYSTEM QRS Duration 82 ms MUSE SYSTEM Q-T Interval 398 ms MUSE SYSTEM QTC Calculated (Bezet) 398 ms MUSE SYSTEM Calculated P Argyle 60 degrees MUSE SYSTEM Calculated R Argyle 39 degrees MUSE SYSTEM Calculated T Argyle 48 degrees MUSE SYSTEM INTERPRETATION Normal sinus rhythm with sinus arrhythmia Normal ECG When compared with ECG of 07-JAN-2019 14:53, T wave amplitude has increased in Anterior leads Confirmed by MD Felix, Felix Soria ([id number]) on 06/27/2021 3:08:19 PM MUSE SYSTEM 06/27/2021 1:51 PM EDT 06/27/2021 3:08 PM EDT Kiko Lira II, MD ECG ORDERABLES MUSE SYSTEM * Differential, Automated (06/27/2021 10:57 AM EDT) Neutrophil % 55.7 % [facility] Neutrophil Absolute 4.43 1.70 - 6.10 x10(3)/[facility] Lymph % 31.2 % [facility] Lymphocytes Abs 2.5 0.9 - 3.2 x10(3)/[facility] Monocyte % 7.9 % [facility] Monocyte Abs 0.6 0.3 - 0.9 x10(3)/[facility] Eos % 3.9 % [facility] Eosinophils Abs 0.3 0.0 - 0.4 x10(3)/[facility] Basophil % 1.0 % [facility] Baso Absolute 0.1 0.0 - 0.1 x10(3)/[facility] Immature Gran % 0.30 % [facility] Comment: Immature granulocytes(IG's)percentage and absolute count will include metamyelocytes, myelocytes, and promyelocytes. Blood smears from CBCs yielding IG's will be scanned manually for concordance. If this scan disagrees with the automated IG or if promyelocytes are noted, a manual differential will be performed. Immature Gran Absolute 0.02 0.00 - 0.04 x10(3)/mcL [facility] Blood 06/27/2021 10:5 7 AM EDT 06/27/2021 11:27 AM EDT Narrative Resulting Agency Comment Spec In Lab Marcos BELLAMY HEMATOLOGY ORDERABLE S [facility] [place] [address] * (ABNORMAL) Hemogram (06/27/2021 10:57 AM EDT) White Blood Cell 8.0 4.0 - 9.5 x10(3)/ L [facility] Red Blood Cell 4.72 4.00 - 5.21 x10(6)/[facility] Hemoglobin 14.5 11.7 - 15.5 gm/dL [facility] Hematocrit 44.7 35.7 - 45.8 % [facility] Mean Cell Volume 94.7(H) 82.6 - 94.4 fL [facility] Mean Cell Hemoglobin 30.7 27.1 - 32.0 pg [facility] Mean Cell Hemoglobin Concentration 32.4 31.7 - 35.0 gm/dL [facility] Platelet 278 145 - 357 x10(3)/ L [facility] RDW Standard Deviation 46.3(H) 37.0 - 46.0 fL [facility] RDW coefficient of variation 13.2 11.5 - 14.1 % [facility] Mean Platelet Volume 9.4 7.6 - 12.9 fL [facility] NRBC% auto 0.0 % [facility] NRBC Absolute 0.000 0.000 - 0.000 x10(3)/mc L [facility] Blood 06/27/2021 10:5 7 AM EDT 06/27/2021 11:27 AM EDT Narrative Resulting Agency Comment Spec In Lab Marcos BELLAMY HEMATOLOGY ORDERABLE S [facility] [place] [address] * (ABNORMAL) BMP w/fasting Glucose (06/27/2021 10:57 AM EDT) Glucose Fasting 105(H) 65 - 99 mg/dL [facility] Comment: ?Fasting* Glucose Interpretive Criteria Normal ?65-99 mg/dL Impaired Fasting glucose ?100-125 mg/dL Consistent with Diabetes Mellitus ? >or= 126 mg/dL *Fasting is defined as no caloric intake for at least 8 hours In the absence of unequivocal hyperglycemia a plasma glucose value of >or= 126 mg/dL should be repeated on a subsequent day. Diagnosis and Classification of Diabetes Mellitus, Position Statement from the [place]. ??Diabetes Care, Volume 33, Supplement 1, Nov 2009 Blood Urea Nitrogen 8 8 - 18 mg/dL [facility] Creatinine 0.63(L) 0.70 - 1.20 mg/dL [facility] Sodium 139 135 - 145 mmol/L [facility] Potassium 3.7 3.5 - 5.0 mmol/L [facility] Comment: Please note: ??Patients with WBC >100,000 may have falsely elevated Potassium levels. ??For accurate Potassium quantification in these patients send serum separator tube (gold top) for subsequent determinations. ??Contact the Clinical Chemistry Laboratory if there are any questions. Chloride 101 98 - 107 mmol/L [facility] Carbon Dioxide 27 22 - 31 mmol/L [facility] Anion Gap 11 5 - 15 mmol/L [facility] Calcium 9.8 8.5 - 10.5 mg/dL [facility] Est Glomerular Filtration Rate 92 >=60 mL/min/1. 73 m?? [facility] Comment: This patient? s estimated glomerular filtration rate (eGFR) is between 92 mL/min/1.73 m2 (patients with less muscle mass) and 107 mL/min/1.73 m2 (patients with more muscle mass) as determined by the CKD-EPI equation. Assessment of eGFR is not appropriate when creatinine concentrations are rapidly changing. For clinical decisions where creatinine clearance will affect therapy, a 24-hour urine creatinine clearance may be advised. Assignment of CKD stage 1 - 5 for patients with an eGFR near the transition point between stages may be based on clinical assessment of muscle mass and symptoms in addition to eGFR. Blood 06/27/2021 10:5 7 AM EDT 06/27/2021 11:27 AM EDT Narrative Resulting Agency Comment Spec In Lab Kiko Lira II, MD CHEMISTRY ORDER LACEY [facility] [place] [address] documented in this encounter Visit Diagnoses Diagnosis Abnormal stress test Other nonspecific abnormal cardiovascular system function study Chest discomfort Other chest pain Abnormal stress test Other nonspecific abnormal cardiovascular system function study Chest discomfort Other chest pain documented in this encounter Administered Medications Inactive Administered Medications - up to 3 most recent administrations Medication Order MAR Action Action Date Dose Rate Site fentaNYL (pf) (50 mcg/mL) multi-dose injection ONCE PRN, Starting on Sat06/27/21 at 1548, Until Sat06/27/21 at 1948, Cath (Intra-Procedure), Routine Given 06/27/2021 3:48 PM EDT 25 mcg heparin (porcine) (1,000 units/mL) injection ONCE PRN, Starting on Sat06/27/21 at 1601, Until Sat06/27/21 at 1948, Cath (Intra-Procedure), Routine Given 06/27/2021 4:01 PM EDT 4,000 Units iohexoL (Omnipaque) (350 mg/mL) injection solution ONCE PRN, Starting on Sat06/27/21 at 1625, Until Sat06/27/21 at 194, Cath (Intra-Procedure), Routine Given 06/27/2021 4:25 PM EDT 70 mLs lidocaine (Xylocaine) 1% (10 mg/mL) injection 3 mg 3 mg (0.3 mL), Subcutaneous, ONCE PRN, 1 dose, Starting on Sat06/27/21 at 1350, Until Sat06/27/21 at 1948, with discomfort with PIV insertion, Cath (Day of Procedure), Routine midazolam (pf) (Versed) (1 mg/mL) multi-dose injection ONCE PRN, Starting on Sat06/27/21 at 1548, Until Sat06/27/21 at 1947, Cath (Intra-Procedure), Routine Given 06/27/2021 3:48 PM EDT 1 mg nitroGLYcerin 100 mcg/mL intracoronary dilution ONCE PRN, Starting on Sat06/27/21 at 1555, Until Sat06/27/21 at 1947, Cath (Intra-Procedure), Routine Given 06/27/2021 3:55 PM EDT 150 mcg sodium chloride 0.9 % (flush) (BD PosiFlush Normal Saline 0.9) flush 5 mL 5 mL, Intravenous, EVERY 12 HOURS, First dose on Sat06/27/21 at 1415, Until Discontinued, Cath (Day of Procedure), Routine sodium chloride 0.9 % (flush) (BD PosiFlush Normal Saline 0.9) flush 5-20 mL 5-20 mL, Intravenous, EVERY 1 MIN PRN, Starting on Sat06/27/21 at 1350, Until Sat06/27/21 at 194, flush, Flush pertains to all indwelling lines. Flush per protocol found in the job aid using the link provided on this medication record., Cath (Day of Procedure), Routine sodium chloride 0.9% infusion 200 mL/hr, Intravenous, CONTINUOUS, Starting on Sat06/27/21 at 1415, Until Sat06/27/21 at 1948, Cath (Day of Procedure) New Bag 06/27/2021 2:02 PM EDT 200 mL/hr 200 mL/hr verapamiL (Isoptin) (2.5 mg/mL) injection ONCE PRN, Starting on Sat06/27/21 at 1555, Until Sat06/27/21 at 1948, Administer over 2 Minutes, Cath (Intra-Procedure) Given 06/27/2021 3:55 PM EDT 2.5 mg documented in this encounter Active and Recently Administered Medications Times are shown in EDT. Scheduled Medication Order 06/25/2021 06/26/2021 06/27/2021 sodium chloride 0.9 % (flush) (BD PosiFlush Normal Saline 0.9) flush 5 mL 5 mL, Intravenous, EVERY 12 HOURS, First dose on Sat06/27/21 at 1415, Until Discontinued, Cath (Day of Procedure), Routine 1415 (Due) Continuous Medication Order 06/25/2021 06/26/2021 06/27/2021 sodium chloride 0.9% infusion 200 mL/hr, Intravenous, CONTINUOUS, Starting on Sat06/27/21 at 1415, Until Sat06/27/21 at 1948, Cath (Day of Procedure) 1402 (New Bag - Prov ider: Lamar Samson RN) PRN Medication Order 06/25/2021 06/26/2021 06/27/2021 fentaNYL (pf) (50 mcg/mL) multi-dose injection ONCE PRN, Starting on Sat06/27/21 at 1548, Until Sat06/27/21 at 1948, Cath (Intra-Procedure), Routine 1548 (Given - Provid er: Jessa Crenshaw RN) heparin (porcine) (1,000 units/mL) injection ONCE PRN, Starting on Sat06/27/21 at 1601, Until Sat06/27/21 at 1948, Cath (Intra-Procedure), Routine 1601 (Given - Provid er: Kanchan Carbone RN) iohexoL (Omnipaque) (350 mg/mL) injection solution ONCE PRN, Starting on Sat06/27/21 at 1625, Until Sat06/27/21 at 1948, Cath (Intra-Procedure), Routine 1625 (Given - Provid er: Kiko Lira II) lidocaine (Xylocaine) 1% (10 mg/mL) injection 3 mg 3 mg (0.3 mL), Subcutaneous, ONCE PRN, 1 dose, Starting on Sat06/27/21 at 1350, Until Sat06/27/21 at 194, with discomfort with PIV insertion, Cath (Day of Procedure), Routine midazolam (pf) (Versed) (1 mg/mL) multi-dose injection ONCE PRN, Starting on Sat06/27/21 at 1548, Until Sat06/27/21 at 194, Cath (Intra-Procedure), Routine 1548 (Given - Provid er: Jessa Crenshaw RN) nitroGLYcerin 100 mcg/mL intracoronary dilution ONCE PRN, Starting on Sat06/27/21 at 1555, Until Sat06/27/21 at 194, Cath (Intra-Procedure), Routine 1555 (Given - Provid er: Ernie Rivas MD) sodium chloride 0.9 % (flush) (BD PosiFlush Normal Saline 0.9) flush 5-20 mL 5-20 mL, Intravenous, EVERY 1 MIN PRN, Starting on Sat06/27/21 at 1350, Until Sat06/27/21 at 194, flush, Flush pertains to all indwelling lines. Flush per protocol found in the job aid using the link provided on this medication record., Cath (Day of Procedure), Routine verapamiL (Isoptin) (2.5 mg/mL) injection ONCE PRN, Starting on Sat06/27/21 at 1555, Until Sat06/27/21 at 1948, Administer over 2 Minutes, Cath (Intra-Procedure) 1555 (Given - Provid er: Ernie Rivas MD) documented in this encounter Care Teams Pedicurist Relationship Specialty Start Date End Date Aurelia Bobby MD [address] [place] [address] [address] [place] [address] PCP - General 08/31/14 01/23/24 documented as of this encounter
--- OUTSIDE RECORDS SUMMARY | 2024-07-15 14:28 | XMS_ITS | Encounter Summary ---
Author Organization [facility] [place] [address] Care Team Providers Care Director Of Event Management Name Role Phone Aurelia Bobby MD Primary Care Provider [phone] Encounter Details Date Type Department Care Team (Late st Contact Info) Description 08/23/2022 2:00 PM EDT - 08/23/2022 3:00 PM EDT [place] [id number] Sung Gruber MD [facility] DR GASTRO[place] [address] EGD, UPPER GI ENDOSCOPY (WRVU 2.09) Social History Tobacco Use Types Packs/Day Years [...] Sign Reading Time Taken Comments Blood Pressure 149/112 08/23/2022 3:00 PM EDT Pulse 58 08/23/2022 3:00 PM EDT Temperature - - Respiratory Rate 20 08/23/2022 3:00 PM EDT Oxygen Saturation 95% 08/23/2022 3:00 PM EDT Inhaled Oxygen Concentration - - [...] the day after the test, use an fvck-tmu-hzylywm spray or lozenges to numbyour throat. Warm [...] occurs, please contact your doctor. Please call [phone] before 8pm Mon-Fri with problems, questions, or concerns. If you call after 8pm or on weekends, call the Hospital at [phone] and ask for the [employer] community support professional and the mine utility operator will contact that person for you. When should you call for help? Call [phone] anytime you think you may need emergency [...] more? You can view health information on [employer], your personal patient account. Log in or sign up today. Content Version: 12.2 ?? [id number] [employer]. Care instructions adapted under license by [facility]. If you have questions about a medical condition or this instruction, always ask your healthcare professional. [employer] disclaims any warranty or liability for your use of this information. documented in this encounter Medications at Time of Discharge Medication Sig Dispensed Refills Start Date End Date sertraline (Zoloft) 50 mg Tablet Take 75 mg by mouth daily. 07/03/2022 aspirin EC 81 mg Tablet, Delayed Release (E.C.) Take 81 mg by mouth daily. xgngdinrsab-mkmndogmv-e ilanter (Trelegy Ellipta) 100-62.5-25 mcg Disk with [...] Take 10 mg by mouth daily. 01/25/2023 hqfytiyhxtv-favaorgtv-i ilanter (Trelegy Ellipta) 100-62.5-25 mcg Disk with [...] 4:30 PM EDT Office Visit Dermatology at [address] [phone] Ruma Echavarria MD [facility] DR ABDIRAHMAN AGUILAR-[place] [address] documented as of this encounter Procedures Procedure Name Priority Date/Time Associated Diagnosis Comments SURGICAL PATHOLOGY REPORT Routine 08/23/2022 2:52 PM EDT SPECIMEN TO PATHOLOGY Routine 08/23/2022 2:52 PM EDT Colonoscopy, RemYvan Angel ([id number]) 08/23/2022 2:06 PM EDT 1 year follow up EGD/. Upper GI Endoscopy, Diagnostic ([id number]) 08/23/2022 2:06 PM EDT 1 year follow up EGD/. UPPER GI ENDOSCOPY Routine 08/23/2022 2: 01 PM EDT COLONOSCOPY Routine 08/23/2022 2:01 PM EDT documented in this encounter Results * Surgical Pathology Report (08/23/2022 2:52 PM EDT) Final Diagnosis [id number] ? Location: 4T; EA10; A The signing pathologist has (i) examined the relevant preparation(s) for the specimen(s) and (ii) rendered or confirmed the diagnosis(es). . ?Surgical Pathology DIAGNOSIS A - Polyps CE 1mm x 2, excision: - ??No tissue present. Electronically signed by: ?Farhan Ramesh MD Verified: ??08/29/2022 13:48 ??Pathologist Performed at: ??-[facility] Dept. of Pathology, [place], [place] SPECIMEN(S) SUBMITTED A - Polyps CE [...] labeled A1. ??jnr 08/29/2022 1:48 PM EDT [facility] GI Biopsy 08/23/2022 2:52 PM EDT 08/23/2022 2:52 PM EDT Sung Gruber MD PATHOLOGY/CYTOLOGY O RDERABLES [facility] [place] [address] * Specimen to Pathology (08/23/2022 2:52 PM EDT) AP Specimen 08/23/2022 2:52 PM EDT 08/23/2022 2:52 PM EDT Narrative [facility] - 08/23/2022 2:52 PM EDT Specimen requisition ordered. ??Separate Pathology report to follow Sung Gruber MD PATHOLOGY/CYTOLOGY O SULLY [facility] [address] * UPPER GI ENDOSCOPY (08/23/2022 2:01 PM EDT) UPPER GI ENDOSCOPY [facility] Endoscopy Procedure Date: 08/23/2022 2:01 PM ? Patient Name: Isaura Arellano ? Date of : 1950 ? Age: 72 ? Order #: [id number] ? Instrument Name: [id number] ? Procedure: ? Upper GI endoscopy Indications: ? Follow-up of gastric polyps Providers: ? Sung Gruber, Rodger Gonzalez, ? THAIS, April Magana MD: ?Aurelia Bobby MD Medicines: ? Fentanyl [...] the entire procedure. ? Sung Gruber, 08/23/2022 2:33:58 PM Number of Addenda: 0 Note Initiated On: 08/23/2022 2:01 PM [facility] 08/23/2022 2:01 PM EDT Aurelia Bobby MD GENERAL SURGICAL ORD ERABLES [facility] * COLONOSCOPY (08/23/2022 2:01 PM EDT) COLONOSCOPY [facility] Endoscopy Procedure Date: 08/23/2022 2:01 PM ? Patient Name: Isaura Arellano ? N: [id number] ? Date of : 1950 ? Age: 72 ? Order #: [id number] ? Instrument Name: [id number] ? Procedure: ? Colonoscopy Indications: ? Rectal [...] mcg/mL) multi-dose injection ONCE PRN, Starting on Halle 08/23/22 at 1407, Until Halle 08/23/22 at 1737, Intra-Operative (Intra-Procedure), Routine Given 08/23/2022 2:30 PM EDT 25 mcg Given 08/23/2022 2:19 PM EDT 25 mcg Given 08/23/2022 2:16 PM EDT 25 mcg lactated ringers infusion 100 mL/hr, Intravenous, CONTINUOUS, Starting on Halle 08/23/22 at 1345, Until Halle 08/23/22 at 1527, Endoscopy (Day of Procedure) New Bag 08/23/2022 1:42 PM EDT 100 mL/hr 100 mL/hr midazolam (pf) (Versed) (1 mg/mL) multi-dose injection ONCE PRN, Starting on Halle 08/23/22 at 1407, Until Halle 08/23/22 at 1737, Intra-Operative (Intra-Procedure), Routine Given 08/23/2022 2:30 PM EDT 1 mg Given 08/23/2022 2:19 PM EDT 1 mg Given 08/23/2022 2:16 PM EDT 1 mg documented in this encounter [...] RN) documented in this encounter Care Teams Director Of Event Management Relationship Specialty Start Date End Date Aurelia Bobby MD [address] [place] [address] [address] [facility] [address] [place] [address] PCP - General 08/31/14 01/23/24 documented as of this encounter
--- OUTSIDE RECORDS SUMMARY | 2024-07-15 14:28 | XMS_ITS | Encounter Summary ---
Author [place] [address] Care Team Providers Care Proof Plate Maker Name Role Phone Aurelia Bobby MD Primary Care Provider [phone] Reason for Referral * Diagnostic Test (Routine) - Closed Specialty Diagnoses / Procedures Referred By Bk de leon Referred To Contact Radiology Diagnoses Non-small cell carcinoma of left lung, stage [address] Chest wo Contrast (Generic) Elsie Cruz APRN [facility] DR HEMATOLOGY-[place] [address] [facility] [place] [address] Referral ID Status Reason Start Date Expiration Date V isits Requested Visits Authorized [id number] Closed Specialty Service Requested 08/24/2021 02/21/2023 1 1 Reason for Visit * Reason Comments Follow-up Encounter Details Date Type Department Care Team (Late st Contact Info) Description 08/23/2021 3:15 PM EDT Office Visit Hematology [place] [address] Tres Graham MD [facility] DR [place] [address] Elsie Cruz, MICHAELLE [facility] [address] HEMATOLOGY-[place] [address] Non-small cell carcinoma of left lung, stage 1 (Primary Dx) Social History Tobacco Use Types Packs/Day Years [...] Sign Reading Time Taken Comments Blood Pressure 138/79 08/23/2021 3:19 PM EDT Pulse 70 08/23/2021 3:19 PM EDT Temperature 36.6 ??C (97.8 ??F) 08/23/2021 3:19 PM ED T Respiratory Rate 13 08/23/2021 3:19 PM EDT Oxygen Saturation 98% 08/23/2021 3:19 PM EDT Inhaled Oxygen Concentration - - Weight 62.6 kg (138 lb) 08/23/2021 3:19 PM EDT Height - - Body Mass Index 23.68 06/27/2021 3:00 PM EDT documented in this encounter Progress Notes * Elsie Cruz, MICHAELLE - 08/23/2021 3:15 PM EDT Thoracic Oncology Follow-up Evaluation HPI: 64 year old female with stage 1B lung adenocarcinoma [id number], s/p JOHNNY lobectomy on 08/09/2014 (surgery revealed a 1.8 cm moderately differentiated adenocarcinoma. No LVI. +visceral pleura invasion. Closest margin 3.5cm. 3 hilar LNs negative, a level 5 LN negative, 10L sump node negative, level 11 LN negative, level 7 LN negative, level 9 LN negative). Last seen 01/21/19. Comes today with a chest CT and for re-evaluation. Since the last visit she had a R hip replacement (February 2021)- recovery has been slow but she is getting stronger. Now walking 4 miles per day, doing yoga. Eating fine, staying hydrated. Weight is increased since the last visit. Breathing is slightly worse than the last visit. She saw pulmonology locally and started trelegy ellipta but this was not helpful. She plans to return to pulmonology for re-evaluation. No SOB at rest. Dyspnea with moderate exertion. Occasional cough, not bothersome, no hemoptysis. No fevers/chills, change in baseline HAs, change in vision, heartburn, N/V, abd pain, diarrhea or constipation, dysuria, lightheadedness, change in balance, falls, new weakness, sensory complaints, bleeding, rash. PMH HTN DJD Asthma Depression PSH S/p [...] 2 grown children. 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 Physical Examination Vitals: 08/23/21 1519 BP: 138/79 Patient Position: Sitting Pulse: 70 Resp: 13 Temp: 36.6 ??C (97.8 ??F) TempSrc: Temporal SpO2: 98% Weight: 62.6 kg (138 lb) Wt Readings from Last 3 Encounters: 08/23/21 62.6 kg (138 lb) 06/27/21 62.3 kg (137 lb 6.4 oz) 09/09/20 63 kg (139 lb) General: alert, conversant, NAD HEENT: conjunctiva clear Neck: no palpable cervical or supraclavicular lymphadenopathy CVS: regular S1S2 without MRG Chest: CTAB, no crackles or wheezes, mildly decreased breath sounds throughout Abdomen: soft, NT, ND, BS+ Extremities: no edema, no calf tenderness Neuro: ambulatory, CN 2-12 grossly intact, moves all 4 extremities Skin: no visible rashes, surgery scars present healed well, skin P/W/D Lab Results Recent Results (from the past 24 hour(s)) Lactate Dehydrogenase Result Value Ref Range LDH 148 110 - 220 unit/L Comprehensive metabolic panel (non-fasting) Result Value Ref Range Glucose Lvl 133 65 - 199 mg/dL BUN 12 8 - 18 mg/dL Creatinine 0.66 (L) 0.70 - 1.20 mg/dL Sodium 142 135 - 145 mmol/L Potassium 3.8 3.5 - 5.0 mmol/L Chloride 104 98 - 107 mmol/L CO2 28 22 - 31 mmol/L Anion Gap 10 5 - 15 mmol/L Calcium 10.1 8.5 - 10.5 mg/dL Total Protein 7.2 6.1 - 8.0 g/dL Albumin 4.4 3.2 - 5.2 g/dL AST 15 0 - 30 unit/L ALT 11 0 - 30 unit/L Alk Phos 81 35 - 105 unit/L Total Bilirubin 0.3 0.2 - 1.3 mg/dL Estimated GFR 90 >=60 mL/min/1.73 m?? Hemogram Result Value Ref Range WBC 8.5 4.0 - 9.5 x10(3)/mcL RBC 4.73 4.00 - 5.21 x10(6)/mcL Hemoglobin 14.8 11.7 - 15.5 g/dL Hematocrit 43.8 35.7 - 45.8 % MCV 92.6 82.6 - 94.4 fL MCH 31.3 27.1 - 32.0 pg MCHC 33.8 31.7 - 35.0 g/dL Platelets 284 145 - 357 x10(3)/mcL RDWSD 50.0 (H) 37.0 - 46.0 fL RDWCV 14.6 (H) 11.5 - 14.1 % MPV 9.3 7.6 - 12.9 fL nRBC % Auto 0.0 % nRBC Abs Auto 0.000 0.000 - 0.000 x10(3)/mcL Differential, Automated Result Value Ref Range Neutrophils % 65.7 % Neutr Abs (ANC) 5.55 1.70 - 6.10 x10(3)/mcL Lymphocytes % 24.3 % Lymphocytes Abs 2.1 0.9 - 3.2 x10(3)/mcL Monocytes % 6.3 % Monocyte Abs 0.5 0.3 - 0.9 x10(3)/mcL Eosinophils % 2.7 % Eosinophils Abs 0.2 0.0 - 0.4 x10(3)/mcL Basophils % 0.9 % Basophils Abs 0.1 0.0 - 0.1 x10(3)/mcL Immature Gran % 0.10 % Pavithra Gran Abs 0.01 0.00 - 0.04 x10(3)/mcL Radiology: Chest CT wo contrast from today: IMPRESSION: ?? Stable exam. Post partial LEFT pneumonectomy. No evidence of local recurrence. No evidence of thoracic metastasis. A/P: A 66-year-old patient with history of [...] I advised her not to start smoking. RTC in 1 year with labs, chest CT wo contrast, clinic. I advised to call if there are any fever, shortness of breath, new pain, weakness, bleeding or any other unusual medical symptoms. Time Attestation: I certify spending at least 30 minutes in providing care to this patient today 08/23/21 as reflectedby the following activities: - review of the medical record in the chart - discussing of medical decision making - documenting the outcome of today's visit as above documented in this encounter Plan of Treatment Upcoming Encounters Date Type Department Care Team (Late st Contact Info) Description 09/01/2024 4:30 PM EDT Office Visit Dermatology at [facility] [address] [place] [id number] Ruma Echavarria MD [facility] DR ABDIRAHMAN [place] [address] documented as of this encounter Results * (ABNORMAL) Comprehensive metabolic panel (non-fasting) (09/04/2022 9:51 AM EDT) Glucose 85 65 - 199 mg/dL [facility] Comment:Diabetes: >=200 mg/d L plus symptoms Blood Urea Nitrogen 14 8 - 18 mg/dL [facility] Creatinine 0.64(L) 0.70 - 1.20 mg/dL [facility] Sodium 142 135 - 145 mmol/L [facility] Potassium 4.1 3.5 - 5.0 mmol/L [facility] Comment: Please note: ??Patients with WBC >100,000 may have falsely elevated Potassium levels. ??For accurate Potassium quantification in these patients send serum separator tube (gold top) for subsequent determinations. ??Contact the Clinical Chemistry Laboratory if there are any questions. Chloride 105 98 - 107 mmol/L [facility] Carbon Dioxide 25 22 - 31 mmol/L [facility] Anion Gap 12 5 - 15 mmol/L [facility] Calcium 9.7 8.5 - 10.5 mg/dL [facility] Protein, Total 7.0 6.1 - 8.0 g/dL [facility] Albumin 4.6 3.2 - 5.2 g/dL [facility] Aspartate Aminotransferase 14 0 - 30 unit/L [facility] Alanine Aminotransferase 11 0 - 30 unit/L [facility] Alkaline Phosphatase 78 35 - 105 unit/L [facility] Bilirubin, Total 0.5 0.2 - 1.3 mg/dL [facility] Est Glomerular Filtration Rate 95 >=60 mL/min/1. 73 m?? [facility] Comment: This patient's estimated GFR [...] Agency Comment Spec In Lab Elsie Cruz SALES REPRESENTATIVE [employer] CHEMISTRY ORDERABL ES Performing Organization Address [facility]/ZIP Co de Phone Number [facility] [place] [address] * Lactate Dehydrogenase (09/04/2022 9:51 AM EDT) Lactate Dehydrogenase 151 110 - 220 unit/L [facility] Blood 09/04/2022 9:51 AM EDT 09/04/2022 10:03 AM EDT Narrative Resulting Agency Comment Spec In Lab Elsie Cruz SALES REPRESENTATIVE [employer] CHEMISTRY ORDERABL ES Performing Organization Address [facility] Co de Phone Number [facility] [place] [address] * CT Chest wo Contrast (Generic) (09/04/2022 [...] who have questions please contact the health children's zoo caretaker that requested your imaging first. ? Electronically signed by: Edvin Spence MD, [facility] ([phone]), at 09/04/2022 10:54 AM Narrative 09/04/2022 10:54 [...] lower lobe for instance on series 4 tvounn62, 61, and 67. No new or enlarging [...] patients who have questions please contactthe health children's zoo caretaker that requested your imaging first. Electronically signed by: Edvin Spence MD, [facility]([phone]), at 09/04/2022 10:54 AM Elsie White Nancy SALES REPRESENTATIVE [employer] IMG CT ORDERABLES * Lactate Dehydrogenase (08/23/2021 1:11 PM EDT) Pathologist [facility] [place] Lactate Dehydrogenase 148 110 - 220 unit/L [facility] Blood 08/23/2021 1:11 PM EDT 08/23/2021 1:16 PM EDT Narrative Resulting Agency Comment Spec In Lab Tres Graham MD CHEMISTRY ORDERA BLES [facility] [place] [address] * (ABNORMAL) Comprehensive metabolic panel (non-fasting) (08/23/2021 1:11 PM EDT) Glucose 133 65 - 199 mg/dL [facility] Comment:Diabetes: >=200 mg/d L plus symptoms Blood Urea Nitrogen 12 8 - 18 mg/dL [facility] Creatinine 0.66(L) 0.70 - 1.20 mg/dL [facility] Sodium 142 135 - 145 mmol/L [facility] Potassium 3.8 3.5 - 5.0 mmol/L [facility] Comment: Please note: ??Patients with WBC >100,000 may have falsely elevated Potassium levels. ??For accurate Potassium quantification in these patients send serum separator tube (gold top) for subsequent determinations. ??Contact the Clinical Chemistry Laboratory if there are any questions. Chloride 104 98 - 107 mmol/L [facility] Carbon Dioxide 28 22 - 31 mmol/L [facility] Anion Gap 10 5 - 15 mmol/L [facility] Calcium 10.1 8.5 - 10.5 mg/dL [facility] Protein, Total 7.2 6.1 - 8.0 g/dL [facility] Albumin 4.4 3.2 - 5.2 g/dL [facility] Aspartate Aminotransferase 15 0 - 30 unit/L [facility] Alanine Aminotransferase 11 0 - 30 unit/L [facility] Alkaline Phosphatase 81 35 - 105 unit/L [facility] Bilirubin, Total 0.3 0.2 - 1.3 mg/dL [facility] Est Glomerular Filtration Rate 90 >=60 mL/min/1. 73 m?? [facility] Comment: This patient? s estimated glomerular filtration rate (eGFR) is between 90 mL/min/1.73 m2 (patients with less muscle mass) and 104 mL/min/1.73 m2 (patients with more muscle mass) [...] and symptoms in addition to eGFR. Blood 08/23/2021 1:11 PM EDT 08/23/2021 1:16 PM EDT Narrative Resulting Agency Comment Spec In Lab Tres Graham MD CHEMISTRY ORDERA CALIXTOS [facility] [place] [address] documented in this encounter Visit Diagnoses Diagnosis Non-small cell carcinoma of left lung, stage 1- Primary Non-small cell carcinoma of left lung, stage 1 documented in this encounter Care Teams Proof Plate Maker Relationship Specialty Start Date End Date Aurelia Bobby MD [address] [place] [address] PCP - General 08/31/14 01/23/24 documented as of this encounter
--- OUTSIDE RECORDS SUMMARY | 2024-07-15 14:28 | XMS_ITS | Encounter Summary ---
[facility] [place] [address] Care Team Providers Care Cheese Production Supervisor Name Role Phone Aurelia Bobby MD Primary Care Provider [phone] Encounter Details Date Type Department Care Team (Late st Contact Info) Description 05/22/2022 Telephone [place] [address] Alvaro February Social History Tobacco Use Types Packs/Day Years [...] encounter Miscellaneous Notes * Telephone Encounter - AlvaroFebruary - 05/22/2022 3:50 PM EDT Isaura Arellano [id number] Diagnosis/Indication: 1 year follow up 1. Have you ever had a/an Upper Endoscopy before? Yes: Date 01/26/21 If yes, did you have any problems with the procedure? No What type of sedation was used: IV Conscious Sedation 2. Do you take any blood thinners or have you been diagnosed with a bleeding disorder that increases your risk of bleeding with procedures? No 3. Do you have a Pacemaker or Defibrillator device? No 4. Are you a diabetic? No 5. Do you have any Allergies to Eggs, Latex or Medications? Yes: see edh 6. Do you take any Oral Iron Supplements (Including multi-vitamins)? No 7. Do you have a history of three or more abdominal surgeries? No 8. Have you had a problem with sedation or anesthesia? Yes Can't have propofol 9. Do you use a c-pap machine or oxygen tank? Neither 10. Do you take prescription narcotic pain medications, including suboxone or methodone? No 11. Do you have a preference regarding the gender of your provider? Yes: Male 12. Is there any other information you would like to us to note for the provider and nursing team who will perform your case? No 13. Say to patient: You must have a responsible green party who will drive you to your procedure, stay [place]amp[place] for the entire duration of your procedure, and drive you home from your procedure? *Please Verify the height and weight, and adjust if height and/or weight have changed* Estimated body mass index is 23.68 kg/m?? as calculated from the following: Height as of 06/27/21: 162.6 cm (5' 4.02). Weight as of 08/23/21: 62.6 kg (138 lb). Age:71 y.o. documented in this encounter Plan of Treatment Upcoming Encounters Date Type Department Care Team (Late st Contact Info) Description 09/01/2024 4:30 PM EDT Office Visit Dermatology at [facility] [address] [place] [address] Ruma Echavarria MD [facility] [address] [place] [address] documented as of this encounter Visit Diagnoses Not on filedocumented in this encounter Care Teams Cheese Production Supervisor Relationship Specialty Start Date End Date Aurelia Bobby MD [address] [place] [address] PCP - General 08/31/14 01/23/24 documented as of this encounter
--- OUTSIDE RECORDS SUMMARY | 2024-07-15 14:28 | XMS_ITS | Encounter Summary ---
Author Organization [facility] Address [facility] [place] [address] Care Team Providers Care Museum Attendant Name Role Phone Aurelia Bobby MD Primary Care Provider [phone] Reason for Referral * Diagnostic Test (Routine) - Closed Specialty Diagnoses / Procedures Referred By Bk de leon Referred To Contact Diagnoses Non-small cell carcinoma of left lung, stage [address] Chest wo Contrast (Generic) Tres Graham MD [facility] [place] [address] Referral ID Status Reason Start Date Expiration Date V isits Requested Visits Authorized [id number] Closed Specialty Service Requested 07/28/2021 01/25/2023 1 1 Encounter Details Date Type Department Care Team (Late st Contact Info) Description 07/28/2021 Orders Only Hematology [place] [address] Tres Graham MD [facility] [place] [address] Non-small cell carcinoma of left lung, stage 1 (Primary Dx) Social History Tobacco Use Types Packs/Day Years Used Date Smoking Tobacco: Former Cigarettes Q uit: 03/1988 Smokeless Tobacco: Never Comments:uses nicotene gum w corie I get stressed Alcohol Use Standard Drinks/Week [...] 4:30 PM EDT Office Visit Dermatology at [facility] [address] [place] [address] Ruma Echavarria MD [facility] DR ABDIRAHMAN [place] [address] documented as of this encounter Results * CT Chest wo Contrast (Generic) (08/23/2021 1:58 PM EDT) Anatomical Region Laterality Modality Chest Computed Tomogra phy Impressions 08/23/2021 3:26 PM EDT Stable exam. Post partial LEFT pneumonectomy. No evidence of local recurrence. No evidence of thoracic metastasis. Thank you for letting us participate in the care of this patient. ??If you are a health care provider and have any questions regarding this report, please contact the number below. ??For patients who have questions please contact the health healthcare network consultant that requested your imaging first. ? Narrative 08/23/2021 3:26 PM EDT EXAMINATION: CT CHEST WO CONTRAST (GENERIC) CLINICAL HISTORY: Non-small cell lung cancer, post treatment, no evidence of disease Lung cancer s/p treatment- surveillance scan TECHNIQUE: 3.75 mm thick axial contiguous sections were obtained through the chest via helical acquisition without intravenous contrast administration. Thin-section reconstructions as well as coronal and sagittal reformatted images were generated. COMPARISON: 08/08/2020 from [facility] FINDINGS: Pulmonary parenchyma: No pulmonary nodules. Stable post partial LEFT upper lobectomy surgical changes, without complication. Thin, suture chain on the LEFT. No evidence of local recurrence. Airways: No endobronchial lesions Pleura: No pleural effusions Lymph nodes: No adenopathy Heart, pericardium, and great vessels: No pericardial effusion Other mediastinal structures: No significant findings. Lower neck: No significant findings. Upper abdomen: Stable low-attenuation LEFT adrenal gland nodule, measuring 3.1 cm. This can be seen on studies dating back to 03/11/2017 and can be considered benign, likely an adenoma. Body wall soft tissues: No significant findings. Skeletal structures: No significant findings. Procedure Note Kenney Reyes MD - 08/23/2021 EXAMINATION: CT CHEST WO CONTRAST (GENERIC) CLINICAL HISTORY: Non-small cell lung cancer, post treatment, no evidenceof disease Lung cancer s/p treatment- surveillance scan TECHNIQUE: 3.75 mm thick axial contiguous sections were obtained throughthe chest via helical acquisition without intravenous contrastadministration. Thin-section reconstructions as well as coronal and sagittal reformattedimages were generated. COMPARISON: 08/08/2020 from [facility] FINDINGS: Pulmonary parenchyma: No pulmonary nodules. Stable post partial LEFTupper lobectomy surgical changes, without complication. Thin, suture chain onthe LEFT. No evidence of local recurrence. Airways: No endobronchial lesions Pleura: No pleural effusions Lymph nodes: No adenopathy Heart, pericardium, and great vessels: No pericardial effusion Other mediastinal structures: No significant findings. Lower neck: No significant findings. Upper abdomen: Stable low-attenuation LEFT adrenal gland nodule, measuring3.1 cm. This can be seen on studies dating back to 03/11/2017 and can beconsidered benign, likely an adenoma. Body wall soft tissues: No significant findings. Skeletal structures: No significant findings. IMPRESSION Stable exam. Post partial LEFT pneumonectomy. No evidence of localrecurrence. No evidence of thoracic metastasis. Thank you for letting us participate in the care of this patient. If youare a health care provider and have any questions regarding this report,please contact the number below. For patients who have questions please contactthe health healthcare network consultant that requested your imaging first. Tres Graham MD IMG CT ORDERABLE S documented in this encounter Visit Diagnoses Diagnosis Non-small cell carcinoma of left lung, stage 1- Primary Non-small cell carcinoma of left lung, stage 1 documented in this encounter Care Teams Museum Attendant Relationship Specialty Start Date End Date Aurelia Bobby MD [address] [place] [address] PCP - General 08/31/14 01/23/24 documented as of this encounter
--- OUTSIDE RECORDS SUMMARY | 2024-07-15 14:28 | XMS_ITS | Encounter Summary ---
Author Organization [facility] [place] [address] Care Team Providers Care Solution Advisor Name Role Phone Aurelia Bobby MD Primary Care Provider [phone] Encounter Details Date Type Department Care Team (Late st Contact Info) Description 06/27/2021 12:00 PM EDT - 06/27/2021 1:00 PM EDT Surgery [place] [id number] Kiko Lira II, MD [facility] [place] [address] CARDIAC CATHETERIZATION Social History Tobacco Use Types Packs/Day Years [...] on file documented as of this encounter Discharge Instructions * Patient Instructions* [...] Your Primary Care Provider: Aurelia Bobby MD [phone] For questions regarding this document or issues relating to this hospitalization on the Medical Service, please contact your inpatient physician through the [facility] . Issues afterhours and on weekends will be handled by the Hospitalist staff on-call. documented in this encounter Medications at Time of Discharge Medication Sig Dispensed Refills Start Date End Date aspirin EC 81 mg Tablet, Delayed Release (E.C.) Take 81 mg by mouth daily. yuuqnjowpam-lsniqbdko-g ilanter (Trelegy Ellipta) 100-62.5-25 mcg Disk with [...] Take 10 mg by mouth daily. 01/25/2023 nxpyzrsgqsa-yiycolbxs-m ilanter (Trelegy Ellipta) 100-62.5-25 mcg Disk with [...] Catheterization Note 70 y.o. female presents for [facility]. She is followed by Dr. Rosado at [facility] where she was evaluated for syncope. [...] PM EDT Preliminary Cardiac Catheterization Procedure Note: Adan Isaura HanhCristina June 27, 2021 [id number] Automatic Car [employer] Attendant - Preliminary Findings Procedures: coronary angiography left [...] 4:30 PM EDT Office Visit Dermatology at [facility] [address] [place] [address] Ruma Echavarria MD [facility] [address] [place] [address] documented as of this encounter Procedures Procedure [...] Modality Other Narrative 06/27/2021 4:44 PM EDT ?[facility] [place] ? Cardiac Catheterization/Intervention Report ? Patient Name: Adan, Isaura L. ? Procedure Date: 06/27/2021 ? A #: [id number] ? Primary Physician: Pankaj, Kiko W ? Case #: [id number] ? File Name: [id number] ? Catheterization Order Number: [id number] ? [facility] ? Final Report [place], [place] ? Patient Name: ? Isaura L. Arellano ? ID#: ?[id number] ? : ?1950 ? Procedure Date: ? June 27, 2021 ? Case #: ? [id number] ? Room: ? 5 ? Case Physician: [...] procedure was Urgent. 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 Chest pain symptom [...] Note Kiko Lira II, MD - 06/27/2021 [facility] Cardiac Catheterization/Intervention Report Patient Name: Isaura ArellanoCristina Procedure Date: 06/27/2021 A #: [id number] Primary Physician: Kiko Lira Case #: [id number] File Name: [id number] Catheterization Order Number: [id number] [facility] FinalReport [place], [place] Patient Name: Isaura Arellano ID#:[id number] :1950 Procedure Date: June 27, 2021 Case [...] diagnostic procedure was Urgent. The indicationfor the laborer tanbark visit is suspected CAD. Chest pain symptom [...] Kiko Lira M.D. performed the coronary angiography and[facility]. Kiko Lira M.D. Electronically Signed [...] (Bezet) 398 ms MUSE SYSTEM Calculated P [place] 60 degrees MUSE SYSTEM Calculated R [place] 39 degrees MUSE SYSTEM Calculated T [place] 48 degrees MUSE SYSTEM INTERPRETATION Normal sinus [...] 10:57 AM EDT) Neutrophil % 55.7 % [facility] Neutrophil Absolute 4.43 1.70 - 6.10 x10(3)/[facility] Lymph % 31.2 % [facility] Lymphocytes Abs 2.5 0.9 - 3.2 x10(3)/[facility] Monocyte % 7.9 % [facility] Monocyte Abs 0.6 0.3 - 0.9 x10(3)/[facility] Eos % 3.9 % [facility] Eosinophils Abs 0.3 0.0 - 0.4 x10(3)/[facility] Basophil % 1.0 % [facility] Baso Absolute 0.1 0.0 - 0.1 x10(3)/[facility] Immature Gran % 0.30 % [facility] Comment: Immature granulocytes(IG's)percentage and absolute count will include metamyelocytes, myelocytes, and promyelocytes. Blood smears from CBCs yielding IG's will be scanned manually for concordance. If this scan disagrees with the automated IG or if promyelocytes are noted, a manual differential will be performed. Immature Gran Absolute 0.02 0.00 - 0.04 x10(3)/[facility] Blood 06/27/2021 10:5 7 AM EDT 06/27/2021 11:27 AM EDT Narrative Resulting Agency Comment Spec In Lab Mar[facility] HEMATOLOGY ORDERABLE [facility] [address] * (ABNORMAL) Hemogram (06/27/2021 10:57 AM EDT) White Blood Cell 8.0 4.0 - 9.5 x10(3)/[facility] Red Blood Cell 4.72 4.00 - 5.21 x10(6)/[facility] Hemoglobin 14.5 11.7 - 15.5 gm/dL [facility] Hematocrit 44.7 35.7 - 45.8 % [facility] Mean Cell Volume 94.7(H) 82.6 - 94.[address] [facility] Mean Cell Hemoglobin 30.7 27.1 - 32.[address] [facility] Mean Cell Hemoglobin Concentration 32.4 31.7 - 35.0 gm/dL [facility] Platelet 278 145 - 357 x10(3)/[facility] RDW Standard Deviation 46.3(H) 37.0 - 46.0 [facility] RDW coefficient of variation 13.2 11.5 - 14.1 % [facility] Mean Platelet Volume 9.4 7.6 - 12.9 [facility] NRBC% auto 0.0 % [facility] NRBC Absolute 0.000 0.000 - 0.000 x10(3)/[facility] Blood 06/27/2021 10:5 7 AM EDT 06/27/2021 11:27 AM EDT Narrative Resulting Agency Comment Spec In Lab Mar[facility]EMATOLOG[facility] ORDERABLE S [facility] [place] [address] * (ABNORMAL) BMP w/fasting Glucose (06/27/2021 10:57 AM EDT) Glucose Fasting 105(H) 65 - 99 mg/dL [facility] Comment: ?Fasting* Glucose Interpretive Criteria Normal [...] of Diabetes Mellitus, Position Statement from the [place] [employer]. ??Diabetes Care, Volume 33, Supplement 1, Nov 2009 Blood Urea Nitrogen 8 8 - 18 mg/dL [facility] Creatinine 0.63(L) 0.70 - 1.20 mg/dL [facility] Sodium 139 135 - 145 mmol/L [facility] Potassium 3.7 3.5 - 5.0 mmol/L [facility] Comment: Please note: ??Patients with WBC >100,000 may have falsely elevated Potassium levels. ??For accurate Potassium quantification in these patients send serum separator tube (gold top) for subsequent determinations. ??Contact the Clinical Chemistry Laboratory if there are any questions. Chloride 101 98 - 107 mmol/L [facility] Carbon Dioxide 27 22 - 31 mmol/L [facility] Anion Gap 11 5 - 15 mmol/L [facility] Calcium 9.8 8.5 - 10.5 mg/dL [facility] Est Glomerular Filtration Rate 92 >=60 mL/min/1. 73 m?? [facility] Comment: This patient? s estimated [...] Kiko Lira II, MD CHEMISTRY ORDER [facility] [place] [address] documented in this encounter Visit Diagnoses Diagnosis [...] at 1946, Cath (Intra-Procedure), Routine Given 06/27/2021 4:25 PM [...] Sat06/27/21 at 1555, Until Sat06/27/21 at 1948, Cath (Intra-Procedure), Routine Given 06/27/2021 3:55 PM [...] Sat06/27/21 at 1350, Until Sat06/27/21 at 1948, flush, Flush pertains to all indwelling lines. [...] on Sat06/27/21 at 1415, Until Sat06/27/21 at 194, Cath (Day of Procedure) 1402 (New Bag - Prov ider: Lamar Samson RN) PRN Medication Order 06/25/2021 06/26/2021 06/27/2021 fentaNYL (pf) (50 mcg/mL) multi-dose injection ONCE PRN, Starting on Sat06/27/21 at 1548, Until Sat06/27/21 at 194, Cath (Intra-Procedure), Routine 154 (Given - Provid er: Jessa Crenshaw RN) heparin (porcine) (1,000 units/mL) injection ONCE PRN, Starting on Sat06/27/21 at 1601, Until Sat06/27/21 at 194, Cath (Intra-Procedure), Routine 160 (Given - Provid er: Kanchan Carbone RN) iohexoL (Omnipaque) (350 mg/mL) injection solution ONCE PRN, Starting on Sat06/27/21 at 1625, Until Sat06/27/21 at 194, Cath (Intra-Procedure), Routine 1625 (Given - Provid [...] Sat06/27/21 at 1350, Until Sat06/27/21 at 1948, flush, Flush pertains to all indwelling lines. [...] MD) documented in this encounter Care Teams Solution Advisor Relationship Specialty Start Date End Date Aurelia Bobby MD [address] [facility] [address] [place] [address] PCP - General 08/31/14 01/23/24 documented as of this encounter
--- OUTSIDE RECORDS SUMMARY | 2024-07-15 14:28 | XMS_ITS | Encounter Summary ---
[place] [address] Care Team Providers Care Beam Saw Operator Name Role Phone Aurelia Bobby MD Primary Care Provider [phone] Encounter Details Date Type Department Care Team (Late st Contact Info) Description 07/23/2022 Telephone [place] [address] Oli Avalos Social History Tobacco Use Types Packs/Day Years [...] encounter Miscellaneous Notes * Telephone Encounter - Oli Avalos - 07/23/2022 2:29 PM EDT Inbound/Outbound: Inbound Spoke to Patient/Left Message: Spoke to patient. Notes: Inbound call from patient stating her prep letter had wrong date as it was listed as , 08/22, but she is actually scheduled 08/23. Advised patient that this was a typo and that she is scheduled 08/23. Patient also asked if Dr. Bright will order colonoscopy for her to be done atthe same time as her upcoming EGD. Patient states that she is not a patient of ours, but sees us only for procedures. Advised patient that it is unlikely that one of our physicians will order this procedure as we do not see her in a clinic setting. Patient states that she has not discussed a colonoscopy with her PCP. Attempted to advise patient to reach out to PCP to discuss the need for a colonoscopy, but patient was unhappy and stated this is someone else's mess-up and I guess I will just see what happens with colon cancer. Patient disconnected call mid sentence. Did not attempt to call patient back due to nature of conversation. documented in this encounter Plan of Treatment Upcoming Encounters Date Type Department Care Team (Late st Contact Info) Description 09/01/2024 4:30 PM EDT Office Visit Dermatology at [facility] [address] [place] [address] Ruma Echavarria MD [facility] DR ABDIRAHMAN CEE-DERMAT[place] [address] documented as of this encounter Visit Diagnoses Not on filedocumented in this encounter Care Teams Beam Saw Operator Relationship Specialty Start Date End Date Aurelia Bobby MD [address] [place] [address] PCP - General 08/31/14 01/23/24 documented as of this encounter
--- OUTSIDE RECORDS SUMMARY | 2024-07-15 14:28 | XMS_ITS | Encounter Summary ---
Author Organization [facility] [place] [address] Care Team Providers Care Patient Support Representative Name Role Phone Aurelia Bobby MD Primary Care Provider Reason for Visit * Consultation (Routine) - Specialty Diagnoses / Procedures Referred By Bk de leon Referred To Contact Otolaryngology Diagnoses Tinnitus Aurelia Bobby MD [address] [place] [address] Theodore Reynolds PA [facility] [place] [address] Referral ID Status Reason Start Date Expiration Date V isits Requested Visits Authorized [id number] Consult, Test & Treat PCP Updated and/or Approved 06/22/2020 06/22/2021 6 6 Encounter Details Date Type Department Care Team (Latest Contact Info) Description 09/09/2020 8:00 AM EDT Office Visit Audiology at [address] [address] Brittney Henson AUD [facility] [place] [address] Sensorineural hearing loss, bilateral Social History Tobacco Use Types Packs/Day Years [...] as of this encounter Progress Notes * Brittney Henson AUD - 09/09/2020 8:00 AM EDT Isaura Arellano was seen for an audiologic evaluation. Please refer to the scanned audiogram in the electronic medical record for findings, impressions and recommendations. Jair Gomez Clinical [place] [address] [phone] (fax) documented in this encounter Plan of Treatment Upcoming Encounters Date Type Department Care Team (Late st Contact Info) Description 09/01/2024 4:30 PM EDT Office Visit Dermatology at [address] [address] Ruma cEhavarria MD [facility] DR ABDIRAH[place] [address] documented as of this encounter Procedures Procedure Name Priority Date/Time Associated Diagnosis Comments COMPREHENSIVE HEARING TEST Routine 09/09/2020 8:18 AM EDT documented in this encounter Results * Comprehensive hearing test (09/09/2020 8:18 AM EDT) 09/09/2020 8:18 AM EDT Narrative [facility] - 09/09/2020 8:18 AM EDT ENT to follow Consider trial with amplification to help with hearing and tinnitus masking Procedure Note Unknown - 09/09/2020 ENT to follow Consider trial with amplification to help with hearing and tinnitusmasking Unknown [facility] documented in this encounter Visit Diagnoses Diagnosis Sensorineural hearing loss, bilateral documented in this encounter Care Teams Patient Support Representative Relationship Specialty Start Date End Date Aurelia Bobby MD [address] [place] [address] PCP - General 08/31/14 01/23/24 documented as of this encounter
--- OUTSIDE RECORDS SUMMARY | 2024-07-15 14:28 | XMS_ITS | Encounter Summary ---
[place] [address] Care Team Providers Care Toy Stuffer Name Role Phone Aurelia Bobby MD Primary Care Provider Encounter Details Date Type Department Care Team (Late st Contact Info) Description 10/30/2021 Telephone [place] [address] Brittney Kendrick Social History Tobacco Use Types Packs/Day Years [...] encounter Miscellaneous Notes * Telephone Encounter - Brittney Kendrick - 10/30/2021 8:52 AM EST ?? 1. Have you ever had a/an Upper Endoscopy before? Yes: Date 01/2021 If yes, did you have any problems with the procedure? No What type of sedation was used: IV Conscious Sedation ?? 2. Do you take any Blood Thinners? No ?? 3. Do you have a Pacemaker or Defibrillator device? No ?? 4. Are you a diabetic? No ?? 5. Do you have any Allergies to Eggs, Latex or Medications? Yes: See EDH 6. Do you take any Oral Iron Supplements (Including multi-vitamins)? No ?? 7. Do you have a history of three or more abdominal surgeries? No ?? 8. Have you had a problem with sedation or anesthesia? No 9. Do you have a c-pap machine or oxygen tank? Neither 10. Do you take prescription narcotic pain medications, including suboxone or methodone? No ?? 11. Do you have a preference regarding the gender of your provider? Yes: Male ?? 12. Is there any other information you would like to give us to aid in scheduling? No ?? 13. Say to patient: You must have a responsible constitution party who will drive you to your procedure, stay [place] for the entire duration of your procedure, and drive you home from your procedure? ?? *Please Verify the height and weight, and adjust if height and/or weight have changed* Estimated body mass index is 23.86 kg/m?? as calculated from the following: Height as of 09/09/20: 162.6 cm (5' 4). Weight as of 09/09/20: 63 kg (139 lb). ?? *Delete if not needed* Height: 5'4 Weight: 139 BMI: 23.86 ?? Age:70 y.o. ?? documented in this encounter Plan of Treatment Upcoming Encounters Date Type Department Care Team (Late st Contact Info) Description 09/01/2024 4:30 PM EDT Office Visit Dermatology at [facility] [address] [place] [address] Ruma Echavarria MD [facility] DR A[place] [address] documented as of this encounter Visit Diagnoses Not on filedocumented in this encounter Care Teams Toy Stuffer Relationship Specialty Start Date End Date Aurelia Bobby MD [address] [place] [address] PCP - General 08/31/14 01/23/24 documented as of this encounter
--- OUTSIDE RECORDS SUMMARY | 2024-07-15 14:28 | XMS_ITS | Encounter Summary ---
[place] [address] Care Team Providers Care Technical Developer Name Role Phone Aurelia Bobby MD Primary Care Provider Reason for Referral * Diagnostic Test (Routine) - Closed Specialty Diagnoses / Procedures Referred By Contac t Referred To Contact Radiology Diagnoses Abnormal stress test Abnormal EKG Procedures CT Angiogram Coronary Arteries Jagdish Rosado MD [address] [place] [address] [place] [address] [facility] [place] [address] Referral ID Status Reason Start Date Expiration Date V isits Requested Visits Authorized [id number] Closed Specialty Service Requested 05/25/2021 11/25/2022 1 1 Reason for Visit * Diagnostic Test (Routine) - Closed Specialty Diagnoses / Procedures Referred By Contac t Referred To Contact Radiology Diagnoses Abnormal stress test Abnormal EKG Procedures CT Angiogram Coronary Arteries Jagdish Rosado MD [address] [place] [address] [place] [address] [facility] [place] [address] Referral ID Status Reason Start Date Expiration Date V isits Requested Visits Authorized [id number] Closed Specialty Service Requested 05/25/2021 11/25/2022 1 1 Encounter Details Date Type Department Care Team (Latest Contact Info) Description 06/15/2021 8:05 AM EDT - 06/15/2021 11:59 PM EDT Hospital Encounter CT Scan at [facility] [place] [address] Jagdish Rosado MD [address] [place] [address] [place] [address] Abnormal stress test; Abnormal EKG Discharge Disposition: Home Social History Tobacco Use [...] Sig Dispensed Refills Start Date End Date yiitycbmxbn-adrgnokkr-z ilanter (Trelegy Ellipta) 100-62.5-25 mcg Disk with [...] (Trelegy Ellipta) 100-62.5-25 mcg Daily 03/17/2021 01/25/2023 fsglnrrflab-drzsnkrno-n ilanter (Trelegy Ellipta) 100-62.5-25 mcg Disk with [...] 4:30 PM EDT Office Visit Dermatology at [address] [place] [address] Ruma Echavarria MD [facility] DR ABD[place] [address] documented as of this encounter Procedures Procedure Name Priority Date/Time Associated Diagnosis Comments CT ANGIOGRAM CORONARY ARTERIES Routine 06/15/2021 8:50 AM EDT Abnormal stress test Abnormal EKG documented in this encounter Results * CT Angiogram Coronary Arteries (06/15/2021 8:50 AM EDT) Anatomical Region Laterality Modality Cardiac Computed Tomogra phy 06/15/2021 9:06 AM EDT Impressions 06/15/2021 5:53 PM EDT 1. ??Coronary calcium score of 1767, consistent with severe atherosclerotic plaque burden and 99th%-ile rank for subjects of the same age, gender, and race/ethnicity who are free of clinical cardiovascular disease and treated diabetes. 2. ??Numerous coronary stenoses, generally minimal (1-24%) or mild (25-49%), but focal moderate (50-69%) stenoses appear present in proximal circumflex, mid right coronary, and LAD immediately after D1 takeoff. CAD-RADS score 3. Potential hemodynamically significant. Correlate with functional assessment. Thank you for letting us participate in the care of this patient. ??If you are a health care provider and have any questions regarding this report, please contact the number below. ??For patients who have questions please contact the health healthcare corporate account director that requested your imaging first. ? Electronically signed by: Yesenia Han MD, [facility] ([phone]), at 06/15/2021 5:53 PM Narrative 06/15/2021 5:53 PM EDT EXAMINATION: CTA Coronary Arteries CLINICAL HISTORY: ??Abnormal stress test. Abnormal EKG.; Arrhythmia ischemia.; R/O Ischemia TECHNIQUE: 3 mm thick axial contiguous sections through the heart were obtained via ECG-gated axial mode acquisition without intravenous contrast. After time bolus, 0.6 mm thick axial contiguous sections were obtained through the heart via ECG-gated helical acquisition during intravenous administration of 89 cc Omnipaque 350. Craniocaudal coverage and [id number] were restricted to the heart. Post-processing was performed on an independent computer workstation including curved multiplanar reformats, coronary calcium scoring, and 3D reconstructions. COMPARISON: 08/08/[address] at [facility]. FINDINGS: Heart rate: mean 67 bpm, range 62 to 96 bpm Heart rhythm: regular, with one APC ECG gating: Successful identification of R wave. ECG editing: Not performed. Artifacts: Calcium blooming artifacts are present in areas of heaviest coronary calcification on CTA. CORONARY CALCIUM SCORE: Left main: ??Agatston score: 172; Volume score: 135; Mass: 42.24 mg Left anterior descending: ??Agatston score: 426; Volume score: 332; Mass: 124.61 mg Diagonal branch: ??Agatston score: 62; Volume score: 51; Mass: 17.31 mg Left circumflex: ??Agatston score: 443; Volume score: 342; Mass: 122.59 mg Obtuse marginal branch: ??Agatston score: 3; Volume score: 5; Mass: 0.75 mg Right coronary: ??Agatston score: 661; Volume score: 528; Mass: 176.38 mg TOTAL: ??Agatston score: 1767; Volume score: 1393; Mass: 43.88 mg Atherosclerotic plaque burden, based on Agatston score: Severe Grading of coronary artery disease (based on total calcium score) no evidence of CAD: 0 calcium score minimal: 1-10 mild: 11-100 moderate: 101-400 severe: >400 Percentile rank, for subjects of the same age, gender, and race/ethnicity who are free of clinical cardiovascular disease and treated diabetes: 99th%-ile. Estimated probability of a nonzero calcium score, based on age, race/ethnicity, and gender: 54% Reference: Poli RL, Stanley H, Nicol R, et al. ??Distribution of coronary artery calcium by race, gender, and age: results from the Multi-Ethnic Study of Atherosclerosis (LYONS). Circulation. 2006;113(1):30-37. CORONARY ARTERIES: Left main: Eccentric mild to moderate calcific plaque at the origin and eccentric mild to moderate mixed density plaque in the distal vessel, both producing minimal (1-24%) and mild (25-49%) stenosis, respectively. Left anterior descending: Eccentric calcific plaque continues from the distal left main into the proximal left anterior descending coronary, producing mild (25-49%)stenosis. Immediately distal to this are moderate eccentric calcific and mixed-density plaques producing mild (25-49%) stenosis. Approximately 2 cm from the LAD origin, terminating immediately proximal to the D1 origin, subcentimeter severe eccentric calcific nodular plaque, with positive remodeling, producing mild (25-49%) stenosis, allowing for calcium blooming artifact. After the D1 takeoff, focal eccentric moderate noncalcified plaque produces moderate (50-69%) stenosis, followed by moderate eccentric calcific plaque, with positive remodeling, producing mild (25-49%) luminal stenosis. This is followed by approximately 18 mm of superficial intramyocardial tunneling/ myocardial bridge in the mid vessel, and after approximately 6 mm, a second segment of superficial intramyocardial tunneling/myocardial bridge, approximately 8 mm in length. Diagonal branches: D1: Focal moderate eccentric calcific plaque of the proximal vessel, with blooming artifact and positive remodeling, producing mild (24-49%) stenosis. D2: Origin before mid LAD intramyocardial tunneling. No demonstrable plaque or stenosis. Left circumflex: Scattered eccentric moderate calcific plaques, up to 7 mm in length of the proximal to mid vessel, generally producing mild (24-49%) stenosis, allowing for blooming artifact however, in the proximal vessel, focal mixed density eccentric plaque appears to produce moderate (50-69%) stenosis. Obtuse marginal branches: Small focal eccentric calcific plaque of proximal OM1 producing minimal (1-24%) stenosis. Right coronary: Dominant. Beginning in the proximal vessel, scattered eccentric calcific and mixed density plaques, up to 13 mm in length, generally producing (minimal 1-24%) or mild (21-49%) stenosis, but producing positive remodeling and two focal moderate (50-69%) stenoses in the mid-vessel. Posterior descending: No demonstrable plaque or stenosis. Posterolateral branch: No demonstrable plaque or stenosis. OTHER STRUCTURES: Other cardiovascular structures: Mild aortic valve calcification. Incompletely circumferential mild to moderate mixed density atherosclerotic plaque of the distal descending thoracic aorta. Other mediastinal structures: No significant findings Pulmonary parenchyma, airways, pleura: Status post left upper lobectomy, with no findings for recurrence at the resection site. A few calcified granulomata in the lungs. Upper abdomen: No significant findings Skeletal Structures: Degenerative changes of the thoracic spine, not appreciably changed Procedure Note Yesenia Han MD - 06/15/2021 EXAMINATION: CTA Coronary Arteries CLINICAL HISTORY: Abnormal stress test. Abnormal EKG.; Arrhythmiaischemia.; R/O Ischemia TECHNIQUE: 3 mm thick axial contiguous sections through the heart wereobtained via ECG-gated axial mode acquisition without intravenous contrast. Aftertime bolus, 0.6 mm thick axial contiguous sections were obtained through theheart via ECG-gated helical acquisition during intravenous administration of 89cc Omnipaque 350. Craniocaudal coverage and [id number] were restricted tothe heart. Post-processing was performed on an independent computerworkstation including curved multiplanar reformats, coronary calcium scoring, and 3D reconstructions. COMPARISON: 08/08/[address] at [facility]. FINDINGS: Heart rate: mean 67 bpm, range 62 to 96 bpm Heart rhythm: regular, with one APC ECG gating: Successful identification of R wave. ECG editing: Not performed. Artifacts: Calcium blooming artifacts are present in areas of heaviestcoronary calcification on CTA. CORONARY CALCIUM SCORE: Left main: Agatston score: 172; Volume score: 135; Mass: 42.24 mg Left anterior descending: Agatston score: 426; Volume score: 332; Mass:124.61 mg Diagonal branch: Agatston score: 62; Volume score: 51; Mass: 17.31 mg Left circumflex: Agatston score: 443; Volume score: 342; Mass: 122.59mg Obtuse marginal branch: Agatston score: 3; Volume score: 5; Mass: 0.75mg Right coronary: Agatston score: 661; Volume score: 528; Mass: 176.38 mg TOTAL: Agatston score: 1767; Volume score: 1393; Mass: 43.88 mg Atherosclerotic plaque burden, based on Agatston score: Severe Grading of coronary artery disease (based on total calcium score) no evidence of CAD: 0 calcium score minimal: 1-10 mild: 11-100 moderate: 101-400 severe: >400 Percentile rank, for subjects of the same age, gender, and race/ethnicitywho are free of clinical cardiovascular disease and treated diabetes:99th%-ile. Estimated probability of a nonzero calcium score, based on age,race/ethnicity, and gender: 54% Reference: Poli RL, Angel H, Nicol R, et al. ??Distribution ofcoronary artery calcium by race, gender, and age: results from the Multi-EthnicStudy of Atherosclerosis (LYONS). Circulation. 2006;113(1):30-37. CORONARY ARTERIES: Left main: Eccentric mild to moderate calcific plaque at the origin and eccentricmild to moderate mixed density plaque in the distal vessel, both producingminimal (1-24%) and mild (25-49%) stenosis, respectively. Left anterior descending: Eccentric calcific plaque continues from the distal left main into theproximal left anterior descending coronary, producing mild (25-49%)stenosis. Immediately distal to this are moderate eccentric calcific andmixed-density plaques producing mild (25-49%) stenosis. Approximately 2 cm from the LAD origin, terminating immediately proximalto the D1 origin, subcentimeter severe eccentric calcific nodular plaque, withpositive remodeling, producing mild (25-49%) stenosis, allowing for calciumblooming artifact. After the D1 takeoff, focal eccentric moderate noncalcified plaqueproduces moderate (50-69%) stenosis, followed by moderate eccentric calcificplaque, with positive remodeling, producing mild (25-49%) luminal stenosis. This is followed by approximately 18 mm of superficial intramyocardial tunneling/ myocardial bridge in the mid vessel, and after approximately 6mm, a second segment of superficial intramyocardial tunneling/myocardialbridge, approximately 8 mm in length. Diagonal branches: D1: Focal moderate eccentric calcific plaque of the proximal vessel,with blooming artifact and positive remodeling, producing mild (24-49%)stenosis. D2: Origin before mid LAD intramyocardial tunneling. No demonstrableplaque or stenosis. Left circumflex: Scattered eccentric moderate calcific plaques, up to 7 mm in length ofthe proximal to mid vessel, generally producing mild (24-49%) stenosis,allowing for blooming artifact however, in the proximal vessel, focal mixed densityeccentric plaque appears to produce moderate (50-69%) stenosis. Obtuse marginal branches: Small focal eccentric calcific plaque of proximal OM1 producing minimal(1-24%) stenosis. Right coronary: Dominant. Beginning in the proximal vessel, scattered eccentric calcific and mixeddensity plaques, up to 13 mm in length, generally producing (minimal 1-24%) ormild (21-49%) stenosis, but producing positive remodeling and two focalmoderate (50-69%) stenoses in the mid-vessel. Posterior descending: No demonstrable plaque or stenosis. Posterolateral branch: No demonstrable plaque or stenosis. OTHER STRUCTURES: Other cardiovascular structures: Mild aortic valve calcification.Incompletely circumferential mild to moderate mixed density atherosclerotic plaque ofthe distal descending thoracic aorta. Other mediastinal structures: No significant findings Pulmonary parenchyma, airways, pleura: Status post left upper lobectomy,with no findings for recurrence at the resection site. A few calcified granulomatain the lungs. Upper abdomen: No significant findings Skeletal Structures: Degenerative changes of the thoracic spine, notappreciably changed IMPRESSION 1. Coronary calcium score of 1767, consistent with severeatherosclerotic plaque burden and 99th%-ile rank for subjects of the same age, gender,and race/ethnicity who are free of clinical cardiovascular disease andtreated diabetes. 2. Numerous coronary stenoses, generally minimal (1-24%) or mild(25-49%), but focal moderate (50-69%) stenoses appear present in proximal circumflex,mid right coronary, and LAD immediately after D1 takeoff. CAD-RADS score 3. Potential hemodynamically significant. Correlate with functionalassessment. Thank you for letting us participate in the care of this patient. If youare a health care provider and have any questions regarding this report,please contact the number below. For patients who have questions please contactthe health healthcare corporate account director that requested your imaging first. Electronically signed by: Yesenia Han MD, [facility]([phone]), at 06/15/2021 5:53 PM Jagdish Rosado MD IMG CT ORDERABLES documented in this encounter Visit Diagnoses Diagnosis Abnormal stress test Other nonspecific abnormal cardiovascular system function study Abnormal EKG Nonspecific abnormal electrocardiogram (ECG) (EKG) documented in this encounter Administered Medications Inactive Administered Medications - up to 3 most recent administrations Medication Order MAR Action Action Date Dose Rate Site iohexoL (Omnipaque) (350 mg/mL) injection solution 0-200 mL 0-200 mL, Intravenous, ONCE PRN, 1 dose, Starting on Halle 06/15/21 at 0849, Until H[place] 06/15/21 at 0849, Per Protocol, Warning Vesicant/Irritant Medication , Radiology Contrast, Routine Given 06/15/2021 8:49 AM EDT 89 mLs documented in this encounter Care Teams Technical Developer Relationship Specialty Start Date End Date Aurelia Bobby MD [address] [place] [address] PCP - General 08/31/14 01/23/24 documented as of this encounter
--- OUTSIDE RECORDS SUMMARY | 2024-07-15 14:28 | XMS_ITS | Encounter Summary ---
Author Organization [facility] [place] [address] Care Team Providers Care Maid Cleaning Cooking Name Role Phone Aurelia Bobby MD Primary Care Provider [phone] Encounter Details Date Type Department Care Team (Late st Contact Info) Description 01/26/2021 8:45 AM EST - 01/26/2021 9:15 AM EST [place] [id number] Georges Bright MD [facility] [place] [address] EGD WITH BIOPSY (WRVU 2.39) Social History [...] Sign Reading Time Taken Comments Blood Pressure 128/66 01/26/2021 9:15 AM EST Pulse 63 01/26/2021 9:15 AM EST Temperature 36.5 ??C (97.7 ??F) 01/26/2021 8:00 AM ES T Respiratory Rate 13 01/26/2021 9:15 AM EST Oxygen Saturation 97% 01/26/2021 9:15 AM EST Inhaled Oxygen Concentration - - Weight - - Height - - Body Mass Index - - documented in this encounter Discharge Instructions * Discharge Instructions* Kenney Mcmillan RN - 01/26/2021 9:28 AM EST Upper GI Endoscopy: What to Expect at [...] home? Activity Rest when you feel tired. ?? You can do your normal activities when it feels okay to do so. Diet ?? Follow your doctor's directions for eating. ?? Unless your doctor has told you not to, drink plenty of fluids. This helps to replace the fluidsthat were lost during the prep. ?? Do not drink alcohol. Medicines ?? Your doctor will tell you if and when you can restart your medicines. He or she will also give you instructions about taking any new medicines. ?? If you take blood thinners, such as warfarin (Coumadin), clopidogrel (Plavix), or aspirin, be sure to talk to your doctor. He or she will tell you if and when to start taking those medicines again. Make sure that you understand exactly what your doctor wants you to do. ?? If polyps were removed or a biopsy was done during the test, your doctor may tell you not to take aspirin or other anti-inflammatory medicines for a few days. These include ibuprofen (Advil, Motrin) and naproxen (Aleve). ?? If you have a sore throat the day after the procedure, use an buzy-jmv-hacsocz spray to numb your throat. Sucking on throat lozenges and gargling with warm salt water may also help relieve your symptoms. Other instructions ?? For your safety, do not drive or operate machinery until the medicine wears off and you can think clearly. Your doctor may tell you not to drive or operate machinery until the day after your test. ?? Do not sign legal documents or make major decisions until the medicine wears off and you can think clearly. The anesthesia can make it hard for you to fully understand what you are agreeing to. Additional Information for Sedation Patients For patients who received sedation: ?? You may have received medications before and/or during your procedure which effects your judgement and reaction time. ?? Do not drive, operate machinery, drink alcoholic beverages or make important decisions for 24 hours. ?? Be careful on stairs as you may be unsteady on your feet. ?? You may eat a regular diet as tolerated. ?? Do not smoke if you are alone. ?? IV site: Slight redness or tenderness is normal, you can use a warm compress if you would like. If tenderness and/or redness increase or if foul drainage occurs, please contact your Doctor. Please call [phone] before 8pm Mon-Fri with problems, questions or concerns. If you call after 8pm or on weekends, call the Hospital at [phone] and ask to speak to the Demand Planning Manager organizational psychologist and the teletray operator will contact that person for you. When should you call for help? Call [phone] anytime you think you may need emergency care. For example, call if: ?? You passed out (lost consciousness). ?? You pass maroon or bloody stools. ?? You have trouble breathing. Call your doctor now or seek immediate medical care if: ?? You have pain that does not get better after you take pain medicine. ?? You are sick to your stomach or cannot drink fluids. ?? You have new or worse belly pain. ?? You have blood in your stools. ?? You have a fever. ?? You cannot pass stools or gas. Watch closely for changes in your health, and be sure to contact your doctor if you have any problems. Where can you learn more? [facility] View your After Visit Summary and more online at [email or web address] If you would like to provide feedback about your hospital experience, please call the Office of Patient and Family Relations at . If you have received this After Visit Summary in error, please immediately return it in person to the department, or notify the [facility] Privacy Office by calling toll free at between the hours of 8AM and 5PM to arrange for our retrieval of the documents at no cost to you. Content Version: 12.2 ?? [phone] streamOnce. Care instructions adapted under license by [facility]. If you have questions about a medical condition or this instruction, always ask your healthcare professional. [employer] disclaims any warranty or liability for your use of this information. documented in this encounter Medications at Time of Discharge Medication Sig Dispensed Refills Start Date End Date kuacapwupld-hjakvzkue-v ilanter (Trelegy Ellipta) 100-62.5-25 mcg Disk with [...] needed for Wheezing. Use with spacer 01/28/2024 xufassfivgq-zcznaafar-u ilanter (Trelegy Ellipta) 100-62.5-25 mcg Disk with [...] as of this encounter H&P Notes * Georges Bright MD - 01/26/2021 8:30 AM EST Patient Name: Isaura Arellano Patient Age: 70 y.o. Birthdate: 1950 Admit date: 01/26/2021 Attending Physician: Georges Bright MD Gastroenterology & Hepatology Pre-Procedure History and Physical Planned Procedure: EGD: Indication: follow-up of duodenal polyp Patient Active Problem List Diagnosis Code ??? Non-small cell carcinoma of left lung, stage 1 C34.92 ??? Abnormal auditory perception H93.299 ??? Colon polyp K63.5 ??? Depression F32.9 ??? Herpes simplex virus (HSV) infection B00.9 [...] Patient Vitals for the past 24 hrs: Temp Pulse Resp BP SpO2 01/26/21 0800 36.5 ??C (97.7 ??F) 68 16 115/66 95 % GEN: NAD, AAOX3 HEENT: NC/AT dryMM, anicteric Chest: CTAB Heart: RRR, nl s1, s2 Abdomen: normal bowel sounds, soft, non tender Assessment and Plan: Proceed with EGD: ASA Grade: ASA 2 - Patient with mild systemic disease with no functional limitations Mallampati: I (soft palate, uvula, fauces, tonsillar pillars visible) Sedation plan: IV Conscious Sedation Risks and benefits of the procedure were discussed with the patient. Risks discussed including bleeding, infection, reaction to anesthesia, perforation or other intraabdominal trauma, pancreatitis (if applicable), missing a cancer (if applicable) and/or other unforseen complication. Informed Consent signed by patient (or petroleum products sales representative). documented in this encounter Plan of Treatment Upcoming Encounters Date Type Department Care Team (Late st Contact Info) Description 09/01/2024 4:30 PM EDT Office Visit Dermatology at [facility] [address] [place] [address] Ruma Echavarria MD [facility] DR ABDIRAHMAN [place] [address] documented as of this encounter Procedures Procedure Name Priority Date/Time Associated Diagnosis Comments SPECIMEN TO PATHOLOGY Routine 01/26/2021 9:20 AM EST SPECIMEN TO PATHOLOGY Routine 01/26/2021 9:20 AM EST SURGICAL PATHOLOGY REPORT Routine 01/26/2021 9:02 AM EST Upper Gi Endoscopy, Biopsy ([id number]) 01/26/2021 8:42 AM EST egd 1 year surveillance UPPER GI ENDOSCOPY Routine 01/26/2021 8: 22 AM EST documented in this encounter Results * Specimen to Pathology (01/26/2021 9:20 AM EST) AP Specimen 01/26/2021 9:20 AM EST 01/26/2021 9:20 AM EST Narrative [facility] - 01/26/2021 9:20 AM EST Specimen requisition ordered. ??Separate Pathology report to follow Georges Bright MD PATHOLOGY/CYTOLOG Y ORDERABLES [facility] [place] [address] * Specimen to Pathology (01/26/2021 9:20 AM EST) AP Specimen 01/26/2021 9:20 AM EST 01/26/2021 9:20 AM EST Narrative [facility] - 01/26/2021 9:20 AM EST Specimen requisition ordered. ??Separate Pathology report to follow Georges Bright MD PATHOLOGY/CYTOLOG Y ORDERABLES [facility] [place] [address] * Surgical Pathology Report (01/26/2021 9:02 AM EST) Final Diagnosis [id number] ? Location: 4T; EA12; A The signing pathologist has (i) examined the relevant preparation(s) for the specimen(s) and (ii) rendered or confirmed the diagnosis(es). . ?Surgical Pathology DIAGNOSIS A - Lesser curve erosion, ?? biopsy: - ??Body/fundic-typ e mucosa with reactive gastropathy. B - Stomach body erythema, ?? biopsy: - Focal active gastritis/reactiv e gastropathy. - ??No microorganisms consistent with Helicobacter species are identified on the H&E stain. Electronically signed by: ??Farhan Ramesh MD Verified: ??01/30/2021 ?Pathologist Performed at: ??-[facility] Dept. of [place]ology, [place], [place] SPECIMEN(S) SUBMITTED A - gastric body, lesser curve, erosion, biopsy (Multiple) B - gastric body, erythema, ?polyp, biopsy (Multiple) CLINICAL INFORMATION 70-year-old female with history of gastric/duodenal polyps SPECIMEN PROCESSING A - Labeled/Fixative: Gastric body, lesser curve, erosion, formalin. Quantity/Size: Single, 0.3 cm. Tissue Description: Soft, pink-red tissue. Sections/Processi ng: Submitted en toto ??in 1 cassette labeled A1. B - Labeled/Fixative: Gastric body, erythema, question polyp, formalin. Quantity/Size: Four, averaging 0.2 cm. Tissue Description: Soft, collins-pink tissues. Sections/Processi ng: Submitted en toto ??in 1 cassette labeled B1. ??sns 01/30/2021 2:48 PM EST [facility] GI Biopsy 01/26/2021 9:02 AM EST 01/26/2021 9:02 AM EST GI Biopsy 01/26/2021 9:02 AM EST 01/26/2021 9:02 AM EST Georges Bright MD PATHOLOGY/CYTOLOG Y ORDERABLES [facility] [place] [address] * UPPER GI ENDOSCOPY (01/26/2021 8:22 AM EST) UPPER GI ENDOSCOPY [facility] Endoscopy Procedure Date: 01/26/2021 8:22 AM ? Patient Name: Isaura Arellano ? Date of : 1950 ? Age: 70 ? Order #: [id number] ? Instrument Name: [id number] ? Procedure: ? Upper GI endoscopy Indications: ? Surveillance procedure, Follow-up of ? polyps in the duodenum and stomach Patient Profile: ? This is a 70 year old female with a ? 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 Georges Bright MD, Ruth Amin ? Jose, THAIS, Susan Magana MD: ?Aurelia Bobby MD Medicines: ? Midazolam 5 mg IV, Fentanyl 125 ? micrograms IV, Benzocaine spray Complications: ? No immediate complications. Procedure: ? Pre-Anesthesia Assessment: ? - Prior to the procedure, a History ? and Physical was performed, and ? patient medications and allergies ? were reviewed. The patient's ? tolerance of previous anesthesia was ? also reviewed. The risks and benefits ? of the procedure and the sedation ? options and risks were discussed with ? the patient. All questions were ? answered, and informed consent was ? obtained. Prior Anticoagulants: The ? patient has taken no previous ? anticoagulant or antiplatelet agents. ? ASA Grade Assessment: II - A patient ? with mild systemic disease. After ? reviewing the risks and benefits, the ? patient was deemed in satisfactory ? condition to undergo the procedure. ? The procedure, indications, benefits, ? risks and alternatives were explained ? to the patient. Specifically ? discussed were potential ? complications including, but not ? limited to, bleeding, perforation, ? infection, missing a cancer, and ? adverse medication reactions. The ? Endoscope was introduced through the ? mouth, and advanced to the third part ? of duodenum. The patient tolerated ? the procedure well. The upper GI ? endoscopy was accomplished without ? difficulty. The patient tolerated the ? procedure well. ? Findings: ? The examined esophagus was normal. ? The Z-line was regular and was found 38 cm from the ? incisors. ? A single localized, 5 mm non-bleeding erosion was ? found on the lesser curvature of the gastric body. ? There were no stigmata of recent bleeding. Biopsies ? were taken with a cold forceps for histology. ? A single 3 mm semi-sessile polyp/erythematou s area ? with no bleeding and no stigmata of recent bleeding ? was found in the gastric body (upper portion of ? greater curve). The polypoid area was removed with a ? cold biopsy forceps. Resection and retrieval were ? complete. ? The exam of the stomach was otherwise normal ? including retroflexed views of cardia and fundus. ? The examined duodenum was normal. Careful exam of the ? second portion. The previously noted lipoma was again ? visualized and appears unchanged. There was no ? evidence of residual adenoma or polyp. The ampulla ? was well visualized. ? Moderate Sedation: ? Moderate (conscious) sedation was administered by the ? endoscopy nurse and supervised by the endoscopist. ? The patient's oxygen saturation, heart rate, blood ? pressure and response to care were monitored. ? I was present during the intraservice time as ? documented by the sedation RN. Impression: ?- Normal esophagus. ? - Z-line regular, 38 cm from the ? incisors. ? - Non-bleeding erosive gastropathy. ? Biopsied. ? - A single gastric polyp. Resected ? and retrieved. ? - Normal examined duodenum. ? - Stable lipoma in the second portion ? and no evidence of residual/recurren t ? polyp. Recommendation: ?- Await pathology results. ? - Follow an antireflux regimen. ? Attending Participation: ? I personally performed the entire procedure. ? I was present during the intraservice time as ? documented by the sedation RN. ? Dr. Rodolfo Bright ____ Georges Bright MD 01/26/2021 9:52:27 AM Number of Addenda: 0 Note Initiated On: 01/26/2021 8:22 AM PROVATION 01/26/2021 8:22 AM EST Aurelia Bobby MD GENERAL SURGICAL ORD ERABLES PROVATION documented in this encounter Visit Diagnoses Not on filedocumented in this encounter Administered Medications Inactive Administered Medications - up to 3 most recent administrations Medication Order MAR Action Action Date Dose Rate Site benzocaine (Hurricane One) Mucosal spray 20% (restricted to gary-procedural use) ONCE PRN, Starting on Halle 01/26/21 at 0849, Until Halle 01/26/21 at 1240, Intra-Operative (Intra-Procedure) Given 01/26/2021 8:49 AM EST 1 spray fentaNYL (pf) (50 mcg/mL) multi-dose injection ONCE PRN, Starting on Halle 01/26/21 at 0846, Until Halle 01/26/21 at 1240, Intra-Operative (Intra-Procedure), Routine Given 01/26/2021 8:57 AM EST 25 mcg Given 01/26/2021 8:49 AM EST 50 mcg Given 01/26/2021 8:46 AM EST 50 mcg lactated ringers infusion 100 mL/hr, Intravenous, CONTINUOUS, Starting on Halle 01/26/21 at 0830, Until Halle 01/26/21 at 0947, Endoscopy (Day of Procedure) New Bag 01/26/2021 8:00 AM EST 100 mL/hr 100 mL/hr midazolam (pf) (Versed) (1 mg/mL) multi-dose injection ONCE PRN, Starting on Halle 01/26/21 at 0846, Until Halle 01/26/21 at 1240, Intra-Operative (Intra-Procedure), Routine Given 01/26/2021 9:04 AM EST 1 mg Given 01/26/2021 8:59 AM EST 1 mg Given 01/26/2021 8:56 AM EST 1 mg documented in this encounter Active and Recently Administered Medications Times are shown in EST. Continuous Medication Order 01/24/2021 01/25/2021 01/26/2021 lactated ringers infusion (CANCELED) 100 mL/hr, Intravenous, CONTINUOUS, Starting on Halle 01/26/21 at 0830, Until Halle 01/26/21 at 0947, Endoscopy (Day of Procedure) 0800 (New Bag - Prov ider: Rodger Gonzalez RN) PRN Medication Order 01/24/2021 01/25/2021 01/26/2021 benzocaine (Hurricane One) Mucosal spray 20% (restricted to gary-procedural use) (CANCELED) ONCE PRN, Starting on Halle 01/26/21 at 0849, Until Halle 01/26/21 at 1240, Intra-Operative (Intra-Procedure) 0849 (Given - Provid er: Ruth Garcia RN) fentaNYL (pf) (50 mcg/mL) multi-dose injection (CANCELED) ONCE PRN, Starting on Halle 321 at 0846, Until Halle 3 at 1240, Intra-Operative (Intra-Procedure), Routine 0846 (Given - Provid er: Ruth Garcia RN)0849 (Given - Provider: Ruth Garcia RN)0857 (Given - Provider: Ruth Garcia RN) midazolam (pf) (Versed) (1 mg/mL) multi-dose injection (CANCELED) ONCE PRN, Starting on Halle 3 at 0846, Until Halle 3 at 1240, Intra-Operative (Intra-Procedure), Routine 0846 (Given - Provid er: Ruth Garcia RN)0849 (Given - Provider: Ruth Garcia RN)0856 (Given - Provider: Ruth Garcia RN)0859 (Given - Provider: Ruth Garcia RN)0904 (Given - Provider: Ruth Garcia RN) documented in this encounter Care Teams Maid Cleaning Cooking Relationship Specialty Start Date End Date Aurelia Bobby MD [address] [place] [address] PCP - General 08/31/14 01/23/24 documented as of this encounter
--- OUTSIDE RECORDS SUMMARY | 2024-07-15 14:28 | XMS_ITS | Encounter Summary ---
Author Organization [facility] [place] [address] Care Team Providers Care Publications Sales Representative Name Role Phone Aurelia Bobby MD Primary Care Provider [phone] Encounter Details Date Type Department Care Team (Late st Contact Info) Description 11/08/2020 Telephone [place] [address] Oli Avalos Social History Tobacco Use Types [...] * Telephone Encounter - Oli Avalos - 11/08/2020 10:14 AM EST Isaura Arellano [id number] Diagnosis/Indication: egd 1 yr surv 1. Have you ever had a/an Upper Endoscopy before? Yes: Date 01/2020 If yes, did you have any problems with the procedure? No What type of sedation was used: IV Conscious Sedation 2. Do you take any Blood Thinners? No 3. Do you have a Pacemaker [...] give us to aid in scheduling? No 13. Say to patient: You must [...] as of 09/09/20: 63 kg (139 lb). *Delete if not needed* Height: 5'4 Weight: 139 BMI: 23.86 Age:70 y.o. documented in this encounter Plan of Treatment Upcoming Encounters Date Type Department Care Team (Late st Contact Info) Description 09/01/2024 4:30 PM EDT Office Visit Dermatology at [facility] [address] [place] [address] Ruma Echavarria MD [facility] DR ABDIRAHMAN [place] [address] documented as of this encounter Visit Diagnoses Not on filedocumented in this encounter Care Teams Publications Sales Representative Relationship Specialty Start Date End Date Aurelia Bobby MD [address] [place] [address] PCP - General 08/31/14 01/23/24 documented as of this encounter
--- OUTSIDE RECORDS SUMMARY | 2024-07-15 14:28 | XMS_ITS | Encounter Summary ---
[place] [address] Care Team Providers Care Mental Hygienist Name Role Phone Aurelia Bobby MD Primary Care Provider [phone] Encounter Details Date Type Department Care Team (Late st Contact Info) Description 08/07/2022 Tele[place] [address] Oli Avalos Social History Tobacco Use Types [...] * Telephone Encounter - Oli Avalos - 08/07/2022 12:00 PM EDT Inbound/Outbound: Outbound Spoke to Patient/Left Message: Spoke to patient Notes: Outbound call to patient to advise provider change for upcoming procedure on 08/23. Provider changing from Deangelo to Yasmani. Advised patient to call with any questions. Patient expressed understanding. Return calls can be handled by: Endoscopy Roll Tube Setter [phone] documented in this encounter Plan of Treatment Upcoming Encounters Date Type Department Care Team (Late st Contact Info) Description 09/01/2024 4:30 PM EDT Office Visit Dermatology at [facility] [address] [place] [address] Ruma Echavarria MD [facility] [address] [place] [address] documented as of this encounter Visit Diagnoses Not on filedocumented in this encounter Care Teams Mental Hygienist Relationship Specialty Start Date End Date Aurelia Bobby MD [address] [place] [address] [address] [facility] [address] [place] [address] PCP - General 08/31/14 01/23/24 documented as of this encounter
--- OUTSIDE RECORDS SUMMARY | 2024-07-15 14:28 | XMS_ITS | Encounter Summary ---
Author Organization [facility] [place] [address] Care Team Providers Care Filing Clerk Name Role Phone Aurelia Bobby MD Primary Care Provider [phone] Encounter Details Date Type Department Care Team (Late st Contact Info) Description 08/08/2020 Ancillary Procedure [place] [address] Aurelia Bobby MD [address] [place] [address] [address] [facility] [address] [place] [address] Social History Tobacco Use Types Packs/Day Years [...] 4:30 PM EDT Office Visit Dermatology at [facility] [address] [place] [phone] Ruma Echavarria MD [facility] [address] ABDIRAH[place] [address] documented as of this encounter Procedures Procedure Name Priority Date/Time Associated Diagnosis Comments FILM LIBRARY STORAGE ONLY CT CHEST Routine 08/08/2020 12:00 AM EDT documented in this encounter Results * Film Library- Storage Only CT Chest (08/08/2020 12:00 AM EDT) Narrative [facility] - 08/09/2020 11:42 AM EDT This exam is auto-finalizing. It's purpose is for storage only. Aurelia Bobby MD IMG FILM LIBRARY ORD ERABLES [place], [place] documented in this encounter Visit Diagnoses Not on filedocumented in this encounter Care Teams Filing Clerk Relationship Specialty Start Date End Date Aurelia Bobby MD [address] [place] [address] [address] [place] [address] PCP - General 08/31/14 01/23/24 documented as of this encounter
--- OUTSIDE RECORDS SUMMARY | 2024-07-15 14:28 | XMS_ITS | Encounter Summary ---
[place] [address] Care Team Providers Care Personal Lines Insurance Advisor Name Role Phone Aurelia Bobby MD Primary Care Provider [phone] Reason for Referral * Diagnostic Test (Routine) - Closed Specialty Diagnoses / Procedures Referred By Bk t Referred To Contact Radiology Diagnoses Lung cancer metastatic to brain Procedures MRI Angiogram Neck w Contrast MRI Angiogram Neck wwo Contrast (Generic) [place] [address] [place] [address] Referral ID Status Reason Start Date Expiration Date V isits Requested Visits Authorized [id number] Closed Specialty Service Requested 08/29/2022 02/28/2024 1 1 * Diagnostic Test (Routine) - Closed Specialty Diagnoses / Procedures Referred By Bk de leon Referred To Contact Radiology Diagnoses Lung cancer metastatic to brain Procedures MRI Angiogram Head wo & MRI Brain wwo Contrast MRI Angiogram Head & MRI Brain wwo [place] [address] [place] [address] Referral ID Status Reason Start Date Expiration Date V isits Requested Visits Authorized [id number] Closed Specialty Service Requested 08/29/2022 02/28/2024 1 1 Reason for Visit * Consultation (Routine) - Closed Specialty Diagnoses / Procedures Referred By Bk de leon Referred To Contact Neurology Diagnoses Cluster headache, not intractable, unspecified chronicity pattern Tho Rojas R, NIB INSPECTOR [address] [place] [address] [facility] Neurology [address] [place] [id number] Referral ID Status Reason Start Date Expiration Date V isits Requested Visits Authorized [id number] Closed Consult, Test & Treat PCP Updated and/or Approved 03/30/2022 03/30/2023 6 6 Encounter Details Date Type Department Care Team (Late st Contact Info) Description 08/29/2022 10:00 AM EDT Office Visit Neurology at [address] [id number] [place] [address] Concern for lung cancer metastatic to brain; Episodic cluster headache, not intractable; H/o of menstrual migraine without status migrainosus, not intractable Social History Tobacco Use Types [...] Sign Reading Time Taken Comments Blood Pressure 128/62 08/29/2022 9:44 AM EDT Pulse 71 08/29/2022 9:44 AM EDT Temperature - - Respiratory Rate - - Oxygen Saturation - - Inhaled Oxygen Concentration - - Weight 57.6 kg (127 lb) 08/29/2022 9:44 AM EDT Height 162.6 cm (5' 4) 08/29/2022 9:44 AM EDT r eported Body Mass Index 21.8 08/29/2022 9:44 AM EDT documented in this encounter Patient Instructions * Patient Instructions* Salena Nicole MD - 08/29/2022 10:00 AM EDT Images from the original note were not included. Headache Clinic Summary of Visit First Visit: 08/29/2022 Welcome to Headache Clinic! I've included some additional information for you as it is your first visit here at [facility] Head[facility]. Diagnosis: episodic cluster Work-up Needed: MRI Brain and MRAngiogram Head and Neck Here's what we need to focus on: Keep a migraine diary. 2. For acute therapy: use oxygen for acute therapy. 3. For prevention therapy: Use Emgality 300 mg per month ONLY during active cluster cycles. Bring the injectable pen with you to the clinic for the teaching. This will be mailed to you. We have sent it to [facility] pharmacy, this is the [facility] speciality pharmacy. Please all my office for a severe headache that is not responding to above treatments, we can talk about treatment options including considering procedures in the office. Follow up with Dr. Nicole when you start having another cluster cycle Emgality (Galcanzumab) 3 injections monthly until the headache cycle is over Emgality Instructions for Use: Before you use the EMGALITY prefilled syringe, read and carefully follow all the [id number] instructions. See ???Storage and Handling Information?? for important storage information. INSTRUCTIONS FOR USE Before you use the EMGALITY prefilled syringe, read and carefully follow all the [id number] instructions. Parts of the EMGALITY Prefilled Syringe Take the Prefilled Syringes from the refrigerator Take 3 EMGALITY prefilled syringes from the refrigerator. Check your prescription. - EMGALITY comes as a single-dose prefilled syringe. - You will need 3 prefilled syringes for each dose. Leave the needle caps on until you are ready to inject. Leave the prefilled syringes at room temperature for 30 minutes before injecting. Do not microwave the prefilled syringes, run hot water over them, or leave them in direct sunlight. Do not shake. Gather Supplies For each injection you will need: - 1 alcohol wipe - 1 cotton ball or piece of gauze - 1 sharps disposal container. See ???After You Inject Your Medicine.?? Inspect the Prefilled Syringe and the medicine Make sure you have the right medicine. The medicine inside should be clear. Its color may be colorless to slightly yellow to slightly brown. Do not use the prefilled syringe, and throw away (dispose of) as directed by your healthcare provider or pharmacist if: - it looks damaged - the medicine is cloudy, is discolored, or has small particles - the Expiration Date (Exp.) printed on the label has passed - the medicine is frozen Prepare for injection Wash your hands with soap and water before you inject your EMGALITY. Make sure a sharps disposal container is close by. Choose your injection site You may inject the medicine into your stomach area (abdomen). Do not inject within 2 inches of the belly button (navel). You may inject the medicine into the front of your thighs. This area should be at least 2 inches above the knee and 2 inches below the groin. Another person may give you the injection in the back of your upper arm or buttocks. Do not inject in the exact same spot. For example, if your first injection was in your abdomen, your next injection could be in another area of your abdomen. Do not inject into areas where the skin is tender, bruised, red, or hard. Clean your injection site with an alcohol wipe. Let the injection site dry before you inject. 1 Uncap Leave the needle cap on until you are ready to inject. Pull the needle cap off and throw it away in your household trash. Do not put the needle cap back on. You could damage the needle or stick yourself by accident. Do not touch the needle. 2 Insert Gently pinch and hold a fold of skin where you will inject. Insert the needle at a 45-degree angle. 3 Inject Slowly push on the thumb pad to push the plunger all the way in until all the medicine is injected. The urena syringe plunger should be pushed all the way to the needle end of the syringe. You should see the coral plunger everton show through the syringe body when the injection is complete as shown. Remove the needle from your skin and gently let go of your skin. If you have bleeding at the injection site, press a cotton ball or gauze over the injection site. Do not rub the injection site. Do not put the needle cap back on the prefilled syringe. After You Inject Your Medicine Throw away the used prefilled syringe Put the used EMGALITY prefilled syringe in an FDA-cleared sharps disposal container right away after use. Do not throw away (dispose of) the EMGALITY prefilled syringe in your household trash. If you do not have an FDA-cleared sharps disposal container, you may use a household container thatis: - made of a heavy-duty plastic, - can be closed with a tight-fitting, puncture-resistant lid, without sharps being able to come out, - upright and stable during use, - leak-resistant, and - properly labeled to warn of hazardous waste inside the container. When your sharps disposal container is almost full, you will need to follow your community guidelines for the right way to dispose of your sharps disposal container. There may be state or local laws about how you should throw away needles and syringes. For more information about safe sharps disposal, and for specific information about sharps disposal in the state you live in, go to the FDA's website at: http://www.fda.gov/safesharpsdisposal. Do not recycle your used sharps disposal container. For each of the 3 injections, repeat all instructions with a new prefilled syringe. Commonly Asked Questions Q. What if I see air bubbles in my EMGALITY prefilled syringe? A. It is normal to have air bubbles in the prefilled syringe. EMGALITY is injected under your skin (subcutaneous injection), so these air bubbles will not harm you. Q. What if there is a drop of liquid on the tip of the needle when I remove the needle cap? A. It is okay to see a drop of liquid on the tip of the needle. Q. What if I cannot push in the plunger? A. If the plunger is stuck or damaged: Do not continue to use the syringe Remove the needle from your skin Dispose of the syringe and get a new one Q. What if there is a drop of liquid or blood on my skin after my injection? A. This is normal. Press a cotton ball or gauze over the injection site. Do not rub the injection site. Q. How can I tell if my injection is complete? A. When your injection is complete: The coral plunger everton should show through the body of the syringe. The urena syringe plunger should be pushed all the way to the needle end of the syringe. Storage and Handling Information Store your prefilled syringes in the refrigerator between 36??F to 46??F (2??C to 8??C). Your prefilled syringes may be stored out of the refrigerator in the original carton at temperatures up to 86??F (30??C) for up to 7 days. After storing out of the refrigerator, do not place EMGALITYback in the refrigerator. Do not freeze your prefilled syringes. Keep your prefilled syringes in the carton they come in to protect them from light until time of use. Do not shake your prefilled syringes. Throw away your prefilled syringes if any of the above conditions are not followed. Keep your prefilled syringes and all medicines out of the reach of children. ======Below is more useful information ===== Please keep a headache diary in written or electronic format (e.g. [place] Migraine Tracker, [email or web address], and migrainebuddy are examples ) General things that will help improve your headaches (Additional information at the end): Regular aerobic exercise Well balanced diet, do not skip meals Regular sleep schedule Hydration with water Trigger avoidance Stress reduction/management and relaxation Paced Breathing Check out The Migraine Masterclass eCourse Your Headache Plan: Please Note: Some treatments are used off label. Many medications used to treat migraine are contraindicated in . Please let us know if youbecome or are planning to become . Many medications need to be stopped well in advance of . Ideally control should be used while on most medications used to treat migraine. If you have been prescribed a new headache medication (typically monthly injectables or oral CGRP inhibitors) from the Headache Clinic, the medication may require a prior authorization (PA). This requires our staff to submit documentation to your insurance company that then needs to be reviewed by the insurance company. This process can take up to 30 days or more, and may require appeals and several communications with the insurance company. Please try to be patient with the process. If you arelooking for an update please send a message through the [email or web address] system. Medications to help reduce the number of headaches: Prevention treatments have to be taken for at least 12-24 weeks at full dose to determine their full effect. Supplements for Consideration: Dose Frequency Comments / Side Effects Coenzyme Q10 100 mg 3 times daily Magnesium Up to 300-500 mg Twice daily Glycinate is preferred over Citrate or Oxide Magnesium may cause diarrhea. If this happens, it is okay to start at a lower dose (about 100 mg daily) and increase up to the full dose Riboflavin (Vitamin B2) 200 mg Twice daily Riboflavin will cause your urine to change color to bright yellow. This is not dangerous High doses of Vitamin B complex is not recommended Medication(s) to take when you get a headache = Acute treatments: Early treatment is better than waiting until pain is severe. Acute treatments taken more than 2-3 days per week will overall worsen your headaches (occur more frequently and be more severe). Acute treatments should not exceed 10 days per month Medications to stop taking: Caffeine (headaches may worsen in the short term when stopping caffeine, decrease caffeine gradually over 4-8 weeks More Information About Your Headaches: Online information: www.americanheadachesociety.org americanmigrainefoundation.org migrainecanada.org The Migraine Masterclass eCourse [email or web address] To enroll, visit the link above. Click on the button in the middle of the page that says ???Buy $97?? - you will then be prompted to enter a coupon to access the eCourse free of charge. The coupon code (all lowercase) for you is: drgreen Name and email are required to receive notifications. All the chapters are available from the beginning however we encourage patients to begin at the start and work through the program at their own pace. A guide could be to aim for one chapter per week. Each chapter requires less than 1 hour of time to complete. LifeStyle Changes to Help Your Headaches: Exercise: From a headache/migraine perspective regular aerobic exercise is beneficial. Daily is best. I recommend an activity that gets you to a huffing a puffing state for 15-20 minutes every day. Diet: No one diet has proven beneficial for all comers with migraines or headaches. I recommend a well balanced diet including all food groups with: fresh fruits and vegetables, lean cuts of meats, and portion control. If you are purposefully excluding major food groups from your diet please make sure the rest of your diet is compensating. Sleep: Some tips for good sleep hygiene to help with your headaches: Your bed should be used primarily for sleep Do not read for extended periods in bed Do not watch TV in bed Do not use back lit displays in bed (cell phones, tablets, e-readers, computers) Do not use back lit displays right before bed. This can make it harder to fall asleep. Establish a soothing pre-sleep routine Do not eat just prior to going to bed Try to go to bed and get up at the same time every day, including weekends and vacation It is better to catch up on sleep with short naps than to alter your sleep schedule Sleep only long enough to feel rested and then get out of bed The amount of sleep that each individual requires is different Do not try to force yourself to sleep. If you can't sleep, get out of bed and try again later Don't be a nighttime clock-watcher Have coffee, tea, and other foods that have caffeine only in the morning, or better yet none at all Avoid alcohol in the late afternoon, evening, and bedtime Avoid smoking, especially in the evening Keep your bedroom dark, cool, quiet, and free of reminders of work or other things that cause you stress Solve problems you have before you go to bed Exercise several days a week, but not right before bed Relaxation therapy In headache disorders there is some thought that either migraine or the treatment of headache depletes the body's production of melatonin. Melatonin is what your body naturally produces to help you go to sleep. There is also some evidence to suggest that taking melatonin may help prevent headaches.If you would like to try taking melatonin you can try taking it before bed. The side effects are sleepiness. Some people find it makes them feel too sleepy in the morning. Some people report it causes vivid dreams or nightmares. Most people have no unwanted side effects. You can safely take up to 12 mg just before bed. I would recommend starting at a lower dose and increasing the dose based on your reaction to it. Hydration: It is important to stay well hydrated with water. Your urine will be concentrated first thing in the morning. You should be drinking enough water that when you go to the restroom mid morning your urine should mostly clear and colorless. It should remain this way for the rest of the day. If you notice your urine becoming more yellow than you may not be drinking enough water. The only exception to this is those taking riboflavin (or other B vitamins) as this will cause yellow urine regardless of hydration status. Trigger avoidance: If you notice a particular headache trigger and it is avoidable than avoid it! Stress Reduction/Management and Paced Breathing: Stress is inevitable and cannot be avoided completely. How you deal with and manage stress is more important. Here are some examples of applications and resources for paced breathing methods, mindfulness, and biofeedback. You may be able to find others on the internet. All may not be available in your area. Free Web site: www.Aplos Software Apps: Stop Breathe Think 2. Headspace 3. Smiling Mind 4. [place] 5. Breathing Zone 6. [facility] Meditation Book: ???Paced Breathing Meditation?? by Dr Rex Jasso, Devices: Mindfulness Device: [facility] [place] [facility] [employer] Headache Clinic Policies For most issues and prescription refills, please call clinic nurse My nurse: uYmiko Ames RN For Prescription Refills: Please call for refills when you have one month left on your medication, we have 48 hous from the time you call to get the medication refill placed. Please call the clinic rather than using HuddleApp or e-mail, as the communication is better in real time. For your safety, we need to see you yearly to continue refilling medications for you. If you have not been seen in over a year, we will provide medication refills only until the date of your next scheduled follow up visit. If that appointment is missed and arrangements have not been previously made, we are unable to continue refilling your medications. [facility] Headache Center - Cancellation, Same Day Cancellation & No Show Policy The expectation is that all patients will arrive at least 20 minutes early to each appointment to ensure vitals have been taken, medications have been reviewed and questionnaires have been completed. Late Arrivals for Scheduled Appointments We understand that delays can happen, however we must keep the other patients and providers on time. If you arrive 10 minutes or more past your scheduled time, we will have to reschedule your appointment. This is considered a No-Show for the appointment as you will have missed your appointment. We will do our best to accommodate you if you do arrive late. You are welcome to accept an appointment with your provider later in the day (if there are openings). If there are no openings with your provider, you can wait in the lobby for a same day cancellation or no show and we will offer you the appointment - please let the staff know you are waiting for an opening. There are no guarantees that an appointment will open up. Same Day Cancellations/No-Shows for Appointments We understand there are times when you must miss an appointment due to illness, emergency, or obligation for work or family. If you must cancel an appointment, we ask that you call at least 24 hours before your scheduled appointment. Patients who do not show up for their appointment and do not call to cancel the appointment will be considered a No-Show. Patients who cancel their appointment with less than a 24-hour notice will be considered a Same DayCancellation. Same Day Cancellations (less than a 24-hour notice) are as harmful as a No-Show as they do not allow us the opportunity to offer the appointment to another patient in need. 3. Warning Letters/Behavior Contracts ONE No-Show or Same Day Cancellation, will receive a letter asking that you follow our Cancellationand No-Show Policy. TWO No-Shows or Same Day Cancellations, you will receive a letter reminding you of our Cancellationand No Show Policy and a BEHAVIOR AGREEMENT. Until the Behavior Agreement has been is agreed upon, signed, and returned to us, the clinic will not be able to offer you any services, including medication refills, appointments or telephone triage. THREE No-Show or Same Day Cancellations, will result in meeting amongst the Headache Center to discuss termination of your care. If terminated, you will not be able to return to the Headache Center. You will be given a 30-day supply of your medications to allow you time to find a provider outside the Headache Center. You will need to contact the Medical Records Department at to request to have your records transferred. documented in this encounter Progress Notes * Salena Nicole MD - 08/29/2022 10:00 AM EDT Images from the original note were not included. [facility] Neurology Headache Clinic - 08/29/2022 Initial Consultation Patient name: Isaura Arellano Date of : 1950 PCP: Aurelia Bobby MD Isaura Arellano is a 72 y.o. right handed female who presents to Headache Clinic for evaluation of headaches as referred by Tho Rojas in my capacity as Headache Medicine Specialist for cluster headaches.. History was obtained from the patient and from chart review. The patient was originally scheduled to see our headache clinic provider on 07/16/2022, but no showed. She states she was exposed to COVID, and it did not test result in time. She did not have COVID. HPI: PMHx includes COPD, hypothyroidism, abnormal stress test/ST segment changes, hypertension, lacunar infarction, carries chart diagnosis alcohol withdrawal (per patient denies alcohol withdrawal) , postconcussive syndrome, attention deficit disorder, memory impairment, major depressive disorder, abnormal auditory perception, tinnitus, HSV, non-small cell lung carcinoma (s/p left lung resection), arthralgia especially in right hip, unilateral complete paralysis of vocal cord, left carpal tunnel syndrome of wrist, constipation, syncope, tick bite. Current CAMP rescue: -Clonazepam 0.5 mg as needed at night -Drinking Coffee can help Current CAMP preventatives: -Aspirin 81 mg daily -She takes 1/2 tablet of Tramadol 50 mg twice a week for arthritis, usually in the time. She has used Tramadol since hip replacement. She has it every 3 months for 56 tablets. -Sertraline 50 mg daily -Vitamin B complex 100 units daily usually Past CAMP medications Triptan -Contraindicated due to abnormal stress test [...] concussive CAMP Non-pharmacological -Therapist for craniosacral therapy QUICK SERVICE TECHNICIAN checked prior to this visit in all available states. She was prescribed 56 tablets (14 days' worth) of tramadol 50 mg on 07/31/22; she was prescribed the same number of tablets w same duration on 05/22/22, 04/26/22, 03/19/22, and 4 weeks' worth prescribed 12/29/21. She was also prescribed 270 tablets (90 days' worth) prescriptions of clonazepam 0.5 mg tableton 07/31/22. Headache Onset/History: When she was a child when she [...] , 2 adult children. 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 History: Trauma: concussion yes Motion Sickness: YES Faintin episodes of syncope, which led to CAD Abdominal Migraine: ? Maybe Raynaud's / Cold Extremities: no Weight Changes: no Constipation: BM daily every metamucil and Miramax and prune juice Latex Allergy: No Kidney Stones: no Asthma: She has mild COPD. EtOH: no, last Saturday. Denies history of alcohol withdrawal. Marijuana: She used marijuana every now and then, 1:1 gummies (5 mg THC + 5 CBD), helps for migraines. Once a week. Since teens (reports abusing it). Nicotine: have not used marijuana Illicit substances: no Herbal supplements: yes Uses some essential oils (uses peppermint, lidocaine roll one) FHx: Cerebral Aneurysm: no Migraine: unclear. Aortic aneurysms: brother Previous workup (if applicable): MRI Brain: Her last MRI was reportedly in 2018. It was with and without contrast. I found it in the scanned records. This was ordered for pulsatile tinnitus. There was no CPA or other intracranial mass or tumor. There was evidence of small vessel ischemia. CT Face wo contrast, February 2022 at [facility]: 1. notable for mild benign appearing mucosal [...] PM She reportedly had ESR that normal. Migraine Disability Assessment Patient has had 0/30 headache days in the past month. Patient Reported: Patient Reported: MIDAS Responses 08/27/2022 Days missed school/work 0 Days productivity at work/school reduced 4 Days did not do household work 25 Days productivity related to housework reduced 40 Days missed family, social or leisure activities 5 Days had headache 22 Pain scale 6 MIDAS Score 74 (MIDAS grade IV, severe disability); severe is 21+ MIDAS Adjusted Score Colloquially, patient reports not feeling disabled. Her headaches were more debiliating 3 months ago. Danger Signs: ?? Systemic illness: No fever, weight loss, , or immunocompromised or immunosuppressed state (HIV, steroids, immunotherapy, etc.) ?? Neurologic symptoms: No confusion, altered consciousness, papilledema, visual field deficits, meningismus, seizures or other focal neurological finding ?? Onset: + thunderclap or late age of onset (>40) ?? Other conditions: No illicit drug use, toxic exposures, + worse with Valsalva, exertion or sexual activity ?? + change in pattern from previous headache history Past Medical & Surgical History: Patient Active Problem List Diagnosis ??? Major depressive disorder ??? Ganglion ??? Alcohol withdrawal ??? Colon polyp ??? Arthralgia of hip ??? Postconcussion syndrome ??? Arthralgia ??? Herpes simplex virus (HSV) infection ??? Memory impairment ??? Unilateral complete paralysis of vocal cord ??? Hypertension ??? Lacunar infarction ??? Non-small cell carcinoma of left lung, stage 1 Overview Note: Moderately differentiated adenocarcinoma, 1.8 cm, no LVI, positive visceral pleural invasion, no involved nodes (0/8). ??? Tinnitus ??? Abnormal auditory perception ??? Depression Past Medical History: Diagnosis Date ??? Non-small cell carcinoma of left lung, stage 1 08/09/2014 Moderately differentiated adenocarcinoma, 1.8 cm, no LVI, positive visceral pleural invasion, no involved nodes (0/8). Past Surgical History: Procedure Laterality Date ??? PRO COLONOSCOPY, REMV LESN, SNARE N/A 08/23/2022 COLONOSCOPY, POLYPECTOMY, REMOVAL LESION BY SNARE (WRVU 4.67) performed by Sung Gruber MD at [facility] ??? PRO ELECTROCONVULSIVE THERAPY N/A 01/07/2019 ECT (WRVU 2.5) performed by Nadja Be MD at [facility] OR ??? PRO ELECTROCONVULSIVE THERAPY N/A 01/08/2019 ECT (WRVU 2.5) performed by Jagdish Balderas MD at [facility] ??? PRO UP GI ENDOSCOPY, REMV TUMOR, SNARE 10/01/2018 EGD, W REMOVAL TUMOR/POLYPS/LESIONS BY SNARE TECHNIQUE performed by Viola Prieto MD at [facility] ??? PRO UP GI ENDOSCOPY, REMV TUMOR, SNARE N/A 10/29/2018 EGD, W REMOVAL TUMOR/POLYPS/LESIONS BY SNARE TECHNIQUE performed by Viola Prieto MD at [facility] ??? PRO UP GI ENDOSCOPY, REMV TUMOR, SNARE N/A 01/25/2020 EGD, W REMOVAL TUMOR/POLYPS/LESIONS BY SNARE TECHNIQUE performed by Georges Bright MD at [facility] ??? PRO UPPER GI ENDOSCOPY, BIOPSY N/A 10/01/2018 EGD WITH BIOPSY (WRVU 2.49) performed by Viola Prieto MD at [facility] ??? PRO UPPER GI ENDOSCOPY, BIOPSY N/A 10/29/2018 EGD WITH BIOPSY (WRVU 2.49) performed by Viola Prieto MD at [facility] ??? PRO UPPER GI ENDOSCOPY, BIOPSY N/A 01/26/2021 EGD WITH BIOPSY (WRVU 2.49) performed by Georges Bright MD at [facility] ??? PRO UPPER GI ENDOSCOPY, DIAGNOSTIC N/A 08/23/2022 EGD, UPPER GI ENDOSCOPY performed by Sung Gruber MD at [facility] Medications: Current Outpatient Medications on File Prior to Visit Medication Sig Dispense Refill ??? traMADoL (Ultram) 50 mg Tablet Take 1 tablet by mouth as needed. ??? sertraline (Zoloft) 50 mg Tablet Take 50 mg by mouth daily. ??? aspirin EC 81 mg Tablet, Delayed Release (E.C.) Take 81 mg by mouth daily. ??? beyrttvlnwb-lhjmmovvo-eqfszqha (Trelegy Ellipta) 100-62.5-25 mcg Disk with Device Inhale into the lungs. ??? valACYclovir (Valtrex) 500 mg Tablet Twice a day ??? clonazePAM (KLONOPIN) 0.5 mg Tablet Take 1 tablet by mouth 2 times daily as needed for Anxiety (or irritability). 14 tablet 0 ??? levothyroxine (SYNTHROID) 50 mcg Tablet Take 50 mcg by mouth daily. ??? albuterol (PROVENTIL HFA;VENTOLIN HFA;PROAIR) 90 mcg/actuation HFA Aerosol Inhaler Inhale 2 puffs into the lungs as needed for Wheezing. Use with spacer ??? nokeapotqkm-kyyfdibktrhe-sffhjbohfg (Trelegy Ellipta) 100-62.5-25 mcg Daily ??? rosuvastatin (Crestor) 10 mg Tablet Take 10 mg by mouth daily. ??? kbmzlnyykra-zmomzcxxd-qywqfqzg (Trelegy Ellipta) 100-62.5-25 mcg Disk with Device Inhale into the lungs. ??? VITAMIN B COMPLEX-100 ORAL Take 100 Units by mouth daily. ??? ibuprofen (Advil;Motrin) 200 mg Tablet Take 200 mg by mouth every 6 hours as needed for Pain. ??? cholecalciferol, Vitamin D3, 2,000 unit Tablet Daily ??? [DISCONTINUED] clonazePAM (KlonoPIN) 0.5 mg Tablet 0.5 mg as needed. ??? [DISCONTINUED] clonazePAM (KLONOPIN) 1 mg Tablet Take 1 tablet by mouth nightly. (Patient not taking: Reported on 08/29/2022) 14 tablet 0 ??? cholecalciferol, Vitamin D3, 25 mcg (1,000 unit) Capsule Take by mouth. ??? b complex vitamins Capsule Take 1 capsule by mouth daily. No current facility-administered medications on file prior to visit. Allergy: Allergies Allergen Reactions ??? Gabapentin Other reaction(s): Made me crazy ??? Propofol Other reaction(s): Other (See Comment) ??? Ancef [Cefazolin] Rash Family History: No family history on file. Social History: Social History Tobacco Use ??? Smoking status: Former Smoker Types: Cigarettes Quit date: 03/1988 Years since quittin.4 ??? Smokeless tobacco: Never Used ??? Tobacco comment: uses nicotene gum when I get stressed Substance Use Topics ??? Alcohol use: Yes Alcohol/week: 7.0 standard drinks Types: 7 Glasses of wine per week ??? Drug use: Not Currently Types: Marijuana Comment: medical marijuana, edibles few a week for sleep Review of systems: [x] Review of systems otherwise negative Physical Exam: Vitals: Vitals: 08/29/22 0944 BP: 128/62 Pulse: 71 Weight: 57.6 kg (127 lb) Height: 162.6 cm (5' 4) Gen: Apparent stated age, well nourished, well developed, awake, alert, NAD Neck: Supple, no meningismus no occipital tenderness Neurological Examination: Mental Status: Awake, alert, and attentive. Speech fluent. Comprehension intact. Affect appropriate. Cranial Nerves: II: Discs sharp. Pupils 3/3 to 2/2. VF full to finger counting. III/IV/: Versions full and intact without nystagmus. V: Facial sensation intact to light touch. VII: Face appears symmetric, eyes resist opening. VIII: Hearing grossly intact. IX/X: Palate elevates symmetrically. XI: Shoulder shrug symmetric. XII: Tongue midline. Motor: Bulk, tone, and strength were normal throughout. No pronator drift. No abnormal movements. Sensory: Sensation to light touch is intact. Coordination: Finger to nose was intact without ataxia. Reflexes: 2+ throughout in upper and lower extremities. Gait: Steady, narrow-based gait with normal stride length and arm swing. Emgality for Cluster Headache [facility] Neu[facility] Headache [facility] Patient name: Isaura Arellano Date of : 1950 Patient Dx: [] G44.001 cluster headache syndrome, unspecified, intractable [x] G44.011 cluster headache, episodic, intractable [] G44.021 cluster headache, chronic, intractable Preferred Pharmacy: [facility], [facility] Isaura Arellano has had a lack of success with 1 of the most effective cluster prevention medications: gammaCore, lithium, verapamil. The only FDA approved medication with level A evidence for the prevention of episodic cluster headache is Emgality. For prophylactic therapy, there are no other treatments with a Level A recommendation for the prevention of episodic cluster headache. Patient has tried and failed: Cluster medications: [] Emgality [x] Verapamil [] [place] [] Topamax [x] Steroids [] Oxygen [] Sumatriptan SQ [] Sumatriptan PO [x] Sumatriptan NS [] Zomig/Zolmotriptan NS [] Zomig/Zolmotriptan PO [] Migranal/DHE Nasal Bastian [] DHE injections [] ONB with or without steroids [] SPG nerve block [] GammaCore device Lower level of evidence: [] Pizotifen [] Depakote [] Capsaicin [] Frovatriptan [] Naratriptan [x] Melatonin [] Indomethacin How long has the patient had this diagnosis? Newly diagnosed, August 2022. How many cluster attacks per day on average? She has had 4 attacks per day How long do the attacks last? 1-2 hours How many cycles per year? Unclear since she is newly diagnosed Will patient be receiving both Emgality and another monoclonal antibody? [] YES [x] NO Assessment: Isaura Arellano is a 72 y.o. woman with PMHx of intermittent tramadol use for arthritis, COPD, hypothyroidism, abnormal stress test/ST segment changes, hypertension, lacunar infarction,, postconcussive syndrome, attention deficit disorder, memory impairment, major depressive disorder, abnormal auditory perception, tinnitus, HSV, non-small cell lung carcinoma (s/p left lung resection), arthralgia especially in right hip, unilateral complete paralysis of vocal cord, left carpal tunnel syndrome of wrist, constipation, syncope, tick bite who presents for further headache evaluation. Briefly, she has had headaches as a child, and in her adult years she had menstrual migraines without aura. There is extensive family history of migraines. She is here due to new type of headache and facial pain, described as intense stabbing in left V1 and V2 associated with more than usual rhinorrhea on leftnasal area, no ptosis starting in mid Nov [...] excludes patients over age of 50 years). ICD-10-CM 1. 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 Episodic cluster headache, not intractable G44.019 Home Oxygen 3. H/o of menstrual migraine without status migrainosus, not intractable G43.829 Recommendations Workup: - MRI brain with/without contrast - MRA head and neck Prevention: - Start Emgality 300 mg only when she starts to have cluster CAMP attacks (she currently has no attacks now). Common side effects were advised. This medication has minimal side effects and has no interaction with current medications. She can bring the pen to the clinic for teaching. Breakthrough: - SPG blocks were offered Rescue: oxygen with face mask 15 LPM. Due to her vascular history (CAD given abnormal cardiac stress test), she is contraindicated from triptans and DHE. Future Considerations: GammaCore if able to afford it. The pathophysiology, natural history, aggravating factors, and [...] the patient was satisfied with the explanation(s). Please note that there may be unintentional health education teacher errors if voice recognition software is used and/or typographical mistakes on occasion. If you notice errors please bring them to my attention. If any area requires explanation or clarification please do not hesitate to contact me. Time spent with this patient and in preparation for today's, 08/29/2022, appointment: 60 min Patient was seen and discussed with attending physician Dr. Fu. Salena Nicole MD Headache Fellow, [facility] Head[facility] Clinic [phone] 08/29/2022 * Paddy Fu MD - 08/29/2022 10:00 AM EDT Attending Note 08-29-22 I saw and evaluated the patient with Dr. Nicole. I have reviewed the fellow's history during the visit and I agree with the details as written. The assessment and plan were formulated in discussion with me at the time of the visit and I agree with them as documented. Discussed at length with patient about diagnostic considerations. Explained diagnosis and treatment. Patient understands and accepts our plan. Briefly, pt with MDD, lung CA stage 1, htn, alcoholism, COPD, and onset of CAMP in childhood, increasing in frequency in her 20s, menstrually related. She developed a new type of CAMP in mid Nov, L sided, with L rhinorrhea, L upper face, 1-2 h duration, then pain freedom, 3-4 attacks per day, daily mid Nov to January-February, and she was able to golfduring the pain, no true agitation. The quality of the pain is throbbing, with mild photophobia, not similar to her migraine. She was started on verapamil 80 TID in February and frequency reduced. She stopped it in June. She is on tramadol twice weekly for arthritis. Current frequency of attacks 0 She has not had brain imaging. Past trials Triptans 1. Robina NS CCBs 2. Verapamil Narcotics 3. Tramadol Imp: This may actually be episodic cluster headache. However, this is so unusual in age and gender that a careful MRI wwo needs to be done looking for secondary causes. If that is clear and she has a new cycle, would treat with galcanezumab and prn O2 or a triptan. Wecould consider gammaCore as well. Paddy Fu MD documented in this encounter Plan of Treatment Upcoming Encounters Date Type Department Care Team (Late st Contact Info) Description 09/01/2024 4:30 PM EDT Office Visit Dermatology at [facility] [address] [place] [address] Ruma Echavarria MD [facility] [address] [place] [address] documented as of this encounter Results * MRI Angiogram Neck [...] who have questions please contact the health student career development specialist that requested your imaging first. ? Narrative [...] patients who have questions please contactthe health student career development specialist that requested your imaging first. Salena Nicole [...] who have questions please contact the health student career development specialist that requested your imaging first. ? Narrative [...] patients who have questions please contactthe health student career development specialist that requested your imaging first. Salena Nicole MD IM MRI ORDERABLES * (ABNORMAL) Creatinine (09/04/2022 9:51 AM EDT) Creatinine 0.64(L) 0.70 - 1.20 mg/dL [facility] Est Glomerular Filtration Rate 95 >=60 mL/min/1. 73 m?? 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
--- OUTSIDE RECORDS SUMMARY | 2024-07-15 14:28 | XMS_ITS | Encounter Summary ---
Author Organization [facility] Jaime jackson [place] [id number] Care Team Providers Care Marketing Agent Name Role Phone Aurelia Bobby MD Primary Care Provider [phone] Reason for Referral * Diagnostic Test (Routine) - Closed Specialty Diagnoses / Procedures Referred By Contac t Referred To Contact Diagnoses Non-small cell carcinoma of left lung, stage [address] Chest wo Contrast (Generic) Tres Graham MD [facility] [place] [address] Referral ID Status Reason Start Date Expiration Date V isits Requested Visits Authorized [id number] Closed Specialty Service Requested 07/28/2021 01/25/2023 1 1 Reason for Visit * Diagnostic Test (Routine) - Closed Specialty Diagnoses / Procedures Referred By Contac t Referred To Contact Diagnoses Non-small cell carcinoma of left lung, stage [address] Chest wo Contrast (Generic) Tres Graham MD [facility] [place] [address] Referral ID Status Reason Start Date Expiration Date V isits Requested Visits Authorized [id number] Closed Specialty Service Requested 07/28/2021 01/25/2023 1 1 Encounter Details Date Type Department Care Team (Late st Contact Info) Description 08/23/2021 1:17 PM EDT - 08/23/2021 11:59 PM EDT Hospital Encounter CT Scan at [facility] [place] [id number] Tres Graham MD [facility] DR [place] [address] Non-small cell carcinoma of left lung, stage [...] (E.C.) Take 81 mg by mouth daily. enfmloviguk-aatbelfwk-l ilanter (Trelegy Ellipta) 100-62.5-25 mcg Disk with [...] Take 10 mg by mouth daily. 01/25/2023 aedvhtkhcza-typuwaluk-k ilanter (Trelegy Ellipta) 100-62.5-25 mcg Disk with [...] 4:30 PM EDT Office Visit Dermatology at [address] [phone] Ruma Echavarria MD [facility] DR [address] [address] documented as of this encounter Procedures Procedure Name Priority Date/Time Associated Diagnosis Comments CT CHEST WO CONTRAST (GENERIC) Routine 08/23/2021 1:58 PM EDT Non-small cell carcinoma of left lung, [...] who have questions please contact the health director of patient care that requested your imaging first. ? [...] reformatted images were generated. COMPARISON: 08/08/2020 from [facility] FINDINGS: Pulmonary parenchyma: No pulmonary nodules. Stable [...] sagittal reformattedimages were generated. COMPARISON: 08/08/2020 from [facility] FINDINGS: Pulmonary parenchyma: No pulmonary nodules. Stable [...] patients who have questions please contactthe health director of patient care that requested your imaging first. Tres Graham MD IMG CT ORDERABLE S documented in this encounter Visit Diagnoses Diagnosis Non-small cell carcinoma of left lung, stage 1 documented in this encounter Care Teams Marketing Agent Relationship Specialty Start Date End Date Aurelia Bobby MD [address] [place] [address] [address] PCP - General 08/31/14 01/23/24 documented as of this encounter
--- OUTSIDE RECORDS SUMMARY | 2024-07-15 14:28 | XMS_ITS | Encounter Summary ---
Author Organization [facility] [place] [address] Care Team Providers Care Dicer Operator Name Role Phone Aurelia Bobby MD Primary Care Provider Reason for Referral * Consultation (Routine) - Closed Specialty Diagnoses / Procedures Referred By Bk de leon Referred To Contact Neurology Diagnoses Cluster headache, not intractable, unspecified chronicity pattern Tho Rojas APRN [address] [place] [address] [facility] Neurology [address] [place] [phone] Referral ID Status Reason Start Date Expiration Date V isits Requested Visits Authorized [id number] Closed Consult, Test & Treat PCP Updated and/or Approved 03/30/2022 03/30/2023 6 6 Encounter Details Date Type Department Care Team (Late st Contact Info) Description 03/30/2022 Transcribe Orders eDH Incoming Referrals [phone] Tho Rojas APRN [address] [place] [address] Cluster headache, not intractable, unspecified chronicity pattern Social History Tobacco Use Types Packs/Day Years [...] 4:30 PM EDT Office Visit Dermatology at [facility] [address] [place] [address] Ruma Echavarria MD [facility] [address] [place] [address] Scheduled Referrals Name Type Priority Associated Diagnoses Orde r Schedule Referral to Neurology Outpatient Referral Routine Cluster headache, not intractable, unspecified chronicity pattern Ordered: 03/30/2022 documented as of this encounter Visit Diagnoses Diagnosis Cluster headache, not intractable, unspecified chronicity pattern documented in this encounter Care Teams Dicer Operator Relationship Specialty Start Date End Date Aurelia Bobby MD [address] [facility] [address] [place] [address] PCP - General 08/31/14 01/23/24 documented as of this encounter
--- OUTSIDE RECORDS SUMMARY | 2024-07-15 14:28 | XMS_ITS | Encounter Summary ---
Author Organization [facility] [place] [address] Care Team Providers Care Valve Technician Name Role Phone Aurelai Bobby MD Primary Care Provider [phone] Encounter Details Date Type Department Care Team (Late st Contact Info) Description 07/16/2022 Notes Only Neurology at [address] [address] Ruma Duff, PHOTOCOMPOSING KEYBOARD OPERATOR [facility] [place] [address] Social History Tobacco Use Types Packs/Day Years [...] of this encounter Progress Notes * Ruma Duff, PHOTOCOMPOSING KEYBOARD OPERATOR - 07/16/2022 9:49 AM EDT The patient was not seen. This encounter was created from chart review in preparation of an upcoming visit. Neurology Headache Clinic Initial Consultation Patient name: Isaura Arellano Date of : 1950 PCP: Aurelia Bobby MD CC: Headache I have been asked to see Isaura Arellano in consultation by No ref. provider found for their c/o Headaches in my capacity as Headache Medicine Specialist. HPI: Isaura Arellano is a 72 y.o. unknown handed female with a history of headaches since unknown . They have a PMH of COPD and DJD, Abnormal nuclear stress test, ST segment changes on EKG, Syncope, Depression, ADD, Tinnitus, h/o stroke, Migraine, HTN, Hypothyroidism, Functional memory problem, myalgia, No flowsheet data found. Reviewed: Notes from Tho Rojas NP, FH: Father: colon cancer Medications tried: Reduction/Prevention: Monoclonal Antibodies: None GEPANTS: None Toxins: None TCA: None Anti-seizure: None SSRI: None SNRI: None MAOI: None Beta Blockers: None Atypical Antidepressants: None Calcium Channel Blockers: None Angiotensin II Receptor Blockers: None PEPE Inhibitors: None Alpha-1 Blockers: None Diuretics: None Other Medications: None Procedures: None Supplements/Neutraceuticals: None Neuromodulation: None Non-pharmacologic Tx: None Acute Treatments: Triptans: None NSAIDS: None Gepants: None Ditans: None Ergotamines: None Anti-emetics/neuroleptics: None Combination/Other Analgesics: None Anti-Histamines: None Muscle relaxers: None Steroids: None Opioids/Narcotics/Controlled Substances: None Benzodiazepines: None Medications: Current Outpatient Medications Medication Sig Dispense Refill ??? aspirin EC 81 mg Tablet, Delayed Release (E.C.) Take 81 mg by mouth daily. ??? rosuvastatin (Crestor) 10 mg Tablet Take 10 mg by mouth daily. ??? ntstlymgqyu-ofsfsytha-hmvmkcgz (Trelegy Ellipta) 100-62.5-25 mcg Disk with Device Inhale into the lungs. ??? khfamoejlor-lcrntqgmp-rkqgbaxv (Trelegy Ellipta) 100-62.5-25 mcg Disk with Device Inhale into the lungs. ??? VITAMIN B COMPLEX-100 ORAL Take 100 Units by mouth daily. ??? ibuprofen (Advil;Motrin) 200 mg Tablet Take 200 mg by mouth every 6 hours as needed for Pain. ??? cholecalciferol, Vitamin D3, 2,000 unit Tablet Daily ??? clonazePAM (KLONOPIN) 0.5 mg Tablet 0.5 mg as needed. ??? valACYclovir (VALTREX) 500 mg Tablet Twice a day ??? clonazePAM (KLONOPIN) 1 mg Tablet Take 1 tablet by mouth nightly. (Patient not taking: Reportedon 01/21/2019) 14 tablet 0 ??? clonazePAM (KLONOPIN) 0.5 mg Tablet Take 1 tablet by mouth 2 times daily as needed for Anxiety (or irritability). 14 tablet 0 ??? cholecalciferol, Vitamin D3, (VITAMIN D) 1,000 unit Capsule Take by mouth. ??? levothyroxine (SYNTHROID) 50 mcg Tablet Take 50 mcg by mouth daily. ??? b complex vitamins Capsule Take 1 capsule by mouth daily. ??? albuterol (PROVENTIL HFA;VENTOLIN HFA;PROAIR) 90 mcg/actuation HFA Aerosol Inhaler Inhale 2 puffs into the lungs as needed for Wheezing. Use with spacer No current facility-administered medications for this visit. Allergy: Allergies Allergen Reactions ??? Gabapentin Other reaction(s): Made me crazy ??? Propofol Other reaction(s): Other (See Comment) ??? Ancef [Cefazolin] Rash Physical Exam: No data found. Constitutional: Well developed, Well groomed, NAD HEENT: oral mucosa moist, no thrush, no carotid bruits, no thyromegaly, no lymphadenopathy Neck:Full AROM Heart: RRR S1S2 no murmur Lungs: CTAB symmetric expansion Abd: soft, nontender, nondistended Ext: no edema, adequate pulses Neuro exam: MSE: alert, oriented to person, place, time, situation, follows simple and complex commands, speechfluent with no dysarthria, able to repeat a sentence, names objects. CN: PERRL, no nystagmus, EOMI, visual lara intact to confrontation, facial sensation intact, no facial droop or asymmetry, tongue protrudes midline, uvula and palate elevate symmetrically, trap symmetric strength bilaterally Fundoscopic examination: crisp optic cups, no AV nicking, venous pulsations b/l Motor: RUE 5/5 throughout LUE 5/5 throughout RLE 5/5 throughout LLE 5/5 throughout Normal bulk and tone No pronator drift Reflexes 2+ bilat biceps, brachioradialis, triceps 2+ bilat patella, achilles downgoing toes bilaterally Sensation: intact light touch, vibration, proprioception, and temperature diffusely Coordination: intact finger nose finger and RINA, no dysmetria, no tremor Gait: normal stride and arm swing, able to perform heel, toe walk and tandem gait. Negative romberg. Diagnostic Tests and Imaging: MRI of Brain wwo Contrast MRV of Brain MRA of Brain CT of Brain LABS: TSH Free T4 B12 Vit D ESR Assessment and plan: Isaura Arellano is a 72 y.o. I will see the patient in unknownweeks in clinic. They can contact me through - with any problems or concerns. I have spent minutes for this visit in face to face time with this patient, documentation and coordination of care. ALMITA Tang APRN, [facility] Neurology, Headache Clinic documented in this encounter Plan of Treatment Upcoming Encounters Date Type Department Care Team (Late st Contact Info) Description 09/01/2024 4:30 PM EDT Office Visit Dermatology at [facility] [address] [place] [address] Ruma Echavarria MD [facility] [address] [address] documented as of this encounter Visit Diagnoses Not on filedocumented in this encounter Care Teams Valve Technician Relationship Specialty Start Date End Date Aurelia Bobby MD [address] [place] [address] PCP - General 08/31/14 01/23/24 documented as of this encounter
--- OUTSIDE RECORDS SUMMARY | 2024-07-15 14:28 | XMS_ITS | Encounter Summary ---
Author Organization [facility] [place] [address] Care Team Providers Care Cylinder Inspector And Tester Name Role Phone Aurelia Bobby MD Primary Care Provider [phone] Encounter Details Date Type Department Care Team (Late st Contact Info) Description 06/22/2021 [place] [address] Marcos Purcell PA [facility] [place] [address] Abnormal stress test; Chest discomfort Social History Tobacco Use Types Packs/Day Years [...] [facility] [address] [place] [address] Ruma Echavarria MD [facility] [address] [place] [address] documented as of this encounter Visit Diagnoses Diagnosis Abnormal stress test Other nonspecific abnormal cardiovascular system function study Chest discomfort Other chest pain documented in this encounter Care Teams Cylinder Inspector And Tester Relationship Specialty Start Date End Date Aurelia Bobby MD [address] [place] [address] PCP - General 08/31/14 01/23/24 documented as of this encounter
--- OUTSIDE RECORDS SUMMARY | 2024-07-15 14:28 | XMS_ITS | Encounter Summary ---
Author Organization [facility] [place] [address] Care Team Providers Care Engineer Internship Name Role Phone Aurelia Bobby MD Primary Care Provider Reason for Visit * Consultation (Routine) - Specialty Diagnoses / Procedures Referred By Bk de leon Referred To Contact Otolaryngology Diagnoses Tinnitus Aurelia Bobby MD [address] [place] [address] Theodore Reynolds PA [facility] [place] [address] Referral ID Status Reason Start Date Expiration Date V isits Requested Visits Authorized [id number] Consult, Test & Treat PCP Updated and/or Approved 06/22/2020 06/22/2021 6 6 Encounter Details Date Type Department Care Team (Late st Contact Info) Description 09/09/2020 9:00 AM EDT Office [place] [address] Theodore Reynolds PA [facility] [place] [address] Tinnitus of both ears; Sensorineural hearing loss (SNHL) of both ears Social History Tobacco Use Types Packs/Day Years [...] Sign Reading Time Taken Comments Blood Pressure - - Pulse - - Temperature - - Respiratory Rate - - Oxygen Saturation - - Inhaled Oxygen Concentration - - Weight 63 kg (139 lb) 09/09/2020 9:01 AM EDT Height 162.6 cm (5' 4) 09/09/2020 9:01 AM EDT Body Mass Index 23.86 09/09/2020 9:01 AM EDT documented in this encounter Progress Notes * Theodore Reynolds PA - 09/09/2020 9:00 AM EDT [facility] [place] NEW PATIENT CONSULTATION I was asked to see Isaura Arellano in consultation by Aurelia Bobby for tinnitus and hearing loss. History was obtained through review of the relevant records, discussion with referring physician and/or patient interview. History of present illness: This is a 70 y.o. female with a history of Lacunar Infarction; Non-small Cell Carcinoma of Left Lung, s/p resection; Depression; Alcohol Withdrawal; memory Impairment. Predominant reason for coming today is her tinnitus. Also feels her hearing is poorer. Tinnitus Has noted for about 4 years. Feels has been disrupting her life for the last year, especially since the winter. Has 2 tones: baseline, constant buzzing, higher pitched, hears on both sides. In the right ear there is also a roaring there most of the time, let's up sometimes for just seconds. Has noted the roaring for about 4 years. Does admit that as it is so loud, she's not sure it is just on the right, and not on the left. Sleeps with an air purifier which helps to drown out the tinnitus. Also plays music during he day which helps mask the sound. Sometimes plugs her right ear, and it goes away for a few seconds. Popping her right ear also will cause it to go away for a few seconds. Neither are pulsatile. Does not wake her up. Does disrupt her concentration. Does not increase her anxiety. Hearing If she is watching television, will miss some words. Has noted this for a couple of years. Worsened since late winter/early spring. No illnesses around that time. No new medications. No changes in her health. Other otologic Occasional brief pain in the right ear. No otorrhea. Does have seconds-long disequilibrium 1-2 times per week. Notes if looking over her head for long periods, or when she stands up after bending over at times. No spinning sensation. Risk factors Admits significant noise exposure: some music concerts. Family history of hearing loss: maternal grandmother with hearing issues later in life. History of head or ear trauma: had TBI in 2015 or 2016; knocked over by large dog with LOC. Had long-standing headaches after the event, and difficulty with concentration, since resolved. No visual disturbances. No weakness or numbness in their face, hands, or feet. History of migraines in early 20's, and still has occasionally. Current migraines: nausea preceding a headache. No diabetes. No history of autoimmune disease. No surgeries in the head or neck. No radiation in the head or neck. No cardiovascular disease. No endocrine disease apart form Hypothyroidism. No renal diseases. Does feel she has some nasal stuffiness frequently on the right. Does have seasonal allergies. Did also have mold in her house attic. No recent illnesses, fevers, chills, night sweats. Had MRI brain in [address] Treadwell, reportedly normal. PROBLEM LIST Patient Active Problem List Diagnosis Code ??? [...] J38.01 ??? Tinnitus H93.19 ??? Ganglion M67.40 PAST MEDICAL HISTORY Past Medical History: Diagnosis Date ??? Non-small cell carcinoma of left lung, stage 1 08/09/2014 Moderately differentiated adenocarcinoma, 1.8 cm, no LVI, positive visceral pleural invasion, no involved nodes (0/8). SOCIAL HISTORY Social History Tobacco Use ??? Smoking status: Former Smoker Types: Cigarettes Quit date: 03/1988 Years since quittin.4 ??? Smokeless tobacco: Never Used ??? Tobacco comment: uses nicotene gum when I get stressed Substance Use Topics ??? Alcohol use: Yes Alcohol/week: 7.0 standard drinks Types: 7 Glasses of wine per week MEDICATIONS Current Outpatient Medications on File Prior to Visit Medication Sig Dispense Refill ??? ibuprofen (Advil;Motrin) 200 mg Tablet Take 200 mg by mouth every 6 hours as needed for Pain. ??? omeprazole (PriLOSEC) 20 mg Capsule, Delayed Release(E.C.) Take 20 mg by mouth daily. ??? cholecalciferol, Vitamin D3, 2,000 unit Tablet Daily ??? clonazePAM (KLONOPIN) 0.5 mg Tablet 0.5 mg as needed. ??? meclizine (ANTIVERT) 25 mg Tablet, Chewable Four times a day ??? valACYclovir (VALTREX) 500 mg Tablet Twice a day ??? clonazePAM (KLONOPIN) 1 mg Tablet Take 1 tablet by mouth nightly. (Patient not taking: Reportedon 01/21/2019) 14 tablet 0 ??? clonazePAM (KLONOPIN) 0.5 mg Tablet Take 1 tablet by mouth 2 times daily as needed for Anxiety (or irritability). (Patient not taking: Reported on 01/21/2019) 14 tablet 0 ??? cholecalciferol, Vitamin D3, (VITAMIN D) 1,000 unit Capsule Take by mouth. ??? levothyroxine (SYNTHROID) 50 mcg Tablet Take 50 mcg by mouth daily. ??? b complex vitamins Capsule Take 1 capsule by mouth daily. ??? magnesium oxide (MAG-OX) 400 mg Tablet Take 500 mg by mouth daily. ??? fluticasone-salmeterol (ADVAIR DISKUS) 250-50 mcg/dose Disk with Device Inhale 1 puff into the lungs every 12 hours. ??? albuterol (PROVENTIL HFA;VENTOLIN HFA;PROAIR) 90 mcg/actuation HFA Aerosol Inhaler Inhale 2 puffs into the lungs as needed for Wheezing. Use with spacer No current facility-administered medications on file prior to visit. ALLERGIES Allergies Allergen Reactions ??? Gabapentin Other reaction(s): Made me crazy ??? Propofol Other reaction(s): Other (See Comment) ROS 8 point Review of Systems was normal except for pertinent positives and negatives included in the History of Present Illness. PHYSICAL EXAMINATION Physical Examination: VITALS - Height 162.6 cm (5' 4), weight 63 kg (139 lb). GENERAL - Well dressed and well nourished. - Breathing comfortably without stridor. - No acute distress. FACE - Full and symmetric facial movement. - No dysmorphic facial features. EYES - Periocular structures and conjunctiva healthy without lesions. - Pupils are equal, round, and reactive to light. - Extraocular movement is full and intact. - No evidence of nystagmus. EARS Please see further findings under Binocular Microscopic Ear Examination. NOSE - Patent anteriorly with adequate airflow, healthy pink mucosa. - Septum is midline without significant deviation. - Inferior turbinates normal exam. MOUTH - Lips and gingiva pink, moist, without lesions. - Tongue and floor of mouth without lesions or masses. - Hard palate without lesions. PHARYNX - Soft palate without lesions. - Uvula is midline. - Oropharynx symmetric. NECK - Soft, supple, without significant lymphadenopathy. - Thyroid gland without masses or asymmetry. - Trachea midline without deviation. LUNGS - Clear to auscultation bilaterally without wheezes. HEART - Regular rate and rhythm without murmur. NEURO - No spontaneous or gaze evoked nystagmus. - EOMI with smooth pursuit. - Corneal reflexes are intact bilaterally. - Dull sensation intact and symmetric bilaterally in all trigeminal braches. - Masseter strength is equal and symmetrical. - Facial Nerve Function is strong and symmetric (CN VII) House Brackmann Grade 1. - Hitselberger: no hypoesthesia in either EAC - Palate is midline and voice is strong. - Tongue is midline. - Shoulder elevation is strong and symmetrical. - Responds appropriately to questions. - Finger to nose (pt to examiner): normal no dysmetria or past pointing. - Fukuda: stable without drift. PSYCHE - Normal mood and affect. PROCEDURES Procedure: Binocular Microscopic Ear Examination Left ear: Auricle normal exam. External auditory canal normal exam. Tympanic membrane de paz and translucent, and exhibited normal mobility. No perforation, retraction, or middle ear pathology noted. Right ear: Auricle normal exam. External auditory canal normal exam. Tympanic membrane de paz and translucent, and exhibited normal mobility. No perforation, retraction, or middle ear pathology noted. REVIEW OF IMAGES/STUDIES Audiology Testing 09/09/2020 AU: normal hearing to moderately severe SNHL; type A tympanogram; speech recognition 92%. AD: normal hearing to moderate SNHL; type A tympanogram; speech recognition 84%. ASSESSMENT/RECOMMENDATIONS Isaura Arellano is a 70 y.o. female with the above-noted history, physical exam findings, microscopic otoscopy findings, and audiology testing results. - Discussed the pathophysiological bases for the phenomena of tinnitus, and that most patients haveimprovement in their symptoms over time, though this improvement can be very variable. Discussed that there was no surgical cure, nor any medication or supplement that has been proven to cure tinnitus. Emphasized, however, that there were many treatment options for helping patients manage their tinnitus, including: hearing aid use, white noise generators, sound masking, cognitive behavioral therapy, relaxation techniques, meditation, physical therapy for associated/exacerbating symptoms, and support groups. Discussed that given her hearing loss, that hearing aid use in particular would likelybe helpful, both for her hearing and her tinnitus. Discussed that, should her tinnitus symptoms worsen in some way that other management options were available to them in the future as needed. Discussed obtaining a follow up hearing test in 1 year, and following up with ENT at that time if there hilda change in testing results, or the patient is symptomatic. Discussed the patient following up in the interim if they note any concerning symptoms, such as a new change in hearing or his tinnitus. Discussed obtaining her prior MRI brain, reportedly negative, from 2018 to review. - The patient expressed understanding of these points and agreement with the plan, and all questions that were asked were answered to the patient's satisfaction. Plan: > Hearing aid consultation. > Obtain prior MRI brain imaging to review. > Hearing test in 1 year. > Patient should call if their symptoms worsen or fail to improve, if new concerning symptoms arise, or if they have any questions or concerns regarding their treatment. I appreciate the opportunity to be involved in Ms. Arellano's care. Theodore Reynolds PA-C [place], [place] [address] Office 09/09/2020 documented in this encounter Plan of Treatment Upcoming Encounters Date Type Department Care Team (Late st Contact Info) Description 09/01/2024 4:30 PM EDT Office Visit Dermatology at [facility] [address] [place] [address] Ruma Echavarria MD [facility] [address] [address] documented as of this encounter Visit Diagnoses Diagnosis Tinnitus of both ears Unspecified tinnitus Sensorineural hearing loss (SNHL) of both ears documented in this encounter Care Teams Engineer Internship Relationship Specialty Start Date End Date Aurelia Bobby MD [address] [place] [address] PCP - General 08/31/14 01/23/24 documented as of this encounter
--- OUTSIDE RECORDS SUMMARY | 2024-07-15 14:28 | XMS_ITS | Encounter Summary ---
[place] [address] Care Team Providers Care Home Care Rn Name Role Phone Aurelia Bobby MD Primary Care Provider [phone] Encounter Details Date Type Department Care Team (Latest Contact Info) Description 08/23/2021 12:47 PM EDT - 08/23/2021 1:16 PM EDT Hospital Encounter [place] [id number] Non-small cell carcinoma of left lung, stage [...] (E.C.) Take 81 mg by mouth daily. gyqquybrzci-nrkcdorvu-a ilanter (Trelegy Ellipta) 100-62.5-25 mcg Disk with [...] Take 10 mg by mouth daily. 01/25/2023 whudwbltiuk-thwgfrrdq-f ilanter (Trelegy Ellipta) 100-62.5-25 mcg Disk with [...] Dermatology at [facility] [address] [place] [address] Ruma Echavarria MD [facility] [address] [address] documented as of this encounter Procedures Procedure Name Priority Date/Time Associated Diagnosis Comments HEMOGRAM Routine 08/23/2021 1:11 PM EDT Non-small cell carcinoma of left lung, stage 1 DIFFERENTIAL, AUTOMATED Routine 08/23/2021 1:11 PM EDT Non-small cell carcinoma of left lung, stage 1 HC CBC,PLT & AUTO DIFF Routine 1:11 PM EDT Non-small cell carcinoma of left lung, stage 1 HC LACTIC DEHYDROGENASE Routine 08/23/2021 1:11 PM EDT Non-small cell carcinoma of left lung, stage 1 COMPREHENSIVE METABOLIC PANEL Routine 08/23/2021 1:11 PM EDT Non-small cell carcinoma of left lung, stage 1 documented in this encounter Results * Differential, Automated (08/23/2021 1:11 PM EDT) Neutrophil % 65.7 % [facility] Neutrophil Absolute 5.55 1.70 - 6.10 x10(3)/[facility] Lymph % 24.3 % [facility] Lymphocytes Abs 2.1 0.9 - 3.2 x10(3)/[facility] Monocyte % 6.3 % [facility] Monocyte Abs 0.5 0.3 - 0.9 x10(3)/[facility] Eos % 2.7 % [facility] Eosinophils Abs 0.2 0.0 - 0.4 x10(3)/[facility] Basophil % 0.9 % [facility] Baso Absolute 0.1 0.0 - 0.1 x10(3)/[facility] Immature Gran % 0.10 % [facility] Comment: Immature granulocytes(IG's)percentage and absolute count will include metamyelocytes, myelocytes, and promyelocytes. Blood smears from CBCs yielding IG's will be scanned manually for concordance. If this scan disagrees with the automated IG or if promyelocytes are noted, a manual differential will be performed. Immature Gran Absolute 0.01 0.00 - 0.04 x10(3)/[facility] Blood 08/23/2021 1:11 PM EDT 08/23/2021 1:16 PM EDT Narrative Resulting Agency Comment Spec In Lab Tres Graham MD HEMATOLOGY ORDER LACEY [facility] [place] [address] * (ABNORMAL) Hemogram (08/23/2021 1:11 PM EDT) White Blood Cell 8.5 4.0 - 9.5 x10(3)/[facility] Red Blood Cell 4.73 4.00 - 5.21 x10(6)/[facility] Hemoglobin 14.8 11.7 - 15.5 g/dL [facility] Hematocrit 43.8 35.7 - 45.8 % [facility] Mean Cell Volume 92.6 82.6 - 94.4 fL [facility] Mean Cell Hemoglobin 31.3 27.1 - 32.0 pg [facility] Mean Cell Hemoglobin Concentration 33.8 31.7 - 35.0 g/dL [facility] Platelet 284 145 - 357 x10(3)/[facility] RDW Standard Deviation 50.0(H) 37.0 - 46.0 [facility] RDW coefficient of variation 14.6(H) 11.5 - 14.1 % [facility] Mean Platelet Volume 9.3 7.6 - 12.9 [facility] NRBC% auto 0.0 % [facility] NRBC Absolute 0.000 0.000 - 0.000 x10(3)/[facility] Blood 08/23/2021 1:11 PM EDT 08/23/2021 1:16 PM EDT Narrative Resulting Agency Comment Spec In Lab Tres Graham MD HEMATOLOGY ORDER LACEY [facility] [place] [address] * (ABNORMAL) Comprehensive metabolic panel (non-fasting) (08/23/2021 1:11 PM EDT) Glucose 133 65 - 199 mg/dL [facility] Comment:Diabetes: >=200 mg/d L plus symptoms Blood Urea Nitrogen 12 8 - 18 mg/dL [facility] Creatinine 0.66(L) 0.70 - 1.20 mg/dL [facility] Sodium 142 135 - 145 mmol/L [facility] Potassium 3.8 3.5 - 5.0 mmol/L [facility] Comment: Please note: ??Patients with WBC >100,000 may have falsely elevated Potassium levels. ??For accurate Potassium quantification in these patients send serum separator tube (gold top) for subsequent determinations. ??Contact the Clinical Chemistry Laboratory if there are any questions. Chloride 104 98 - 107 mmol/L [facility] Carbon Dioxide 28 22 - 31 mmol/L [facility] Anion Gap 10 5 - 15 mmol/L [facility] Calcium 10.1 8.5 - 10.5 mg/dL [facility] Protein, Total 7.2 6.1 - 8.0 g/dL [facility] Albumin 4.4 3.2 - 5.2 g/dL [facility] Aspartate Aminotransferase 15 0 - 30 unit/L [facility] Alanine Aminotransferase 11 0 - 30 unit/L [facility] Alkaline Phosphatase 81 35 - 105 unit/L [facility] Bilirubin, Total 0.3 0.2 - 1.3 mg/dL [facility] Est Glomerular Filtration Rate 90 >=60 mL/min/1. 73 m?? [facility] Comment: This patient? s [...] Lab Tres Graham MD CHEMISTRY ORDERA BLES Performing Organization Address City/[facility]/ZIP Co de Phone Number [facility] [place] [address] * Lactate Dehydrogenase (08/23/2021 1:11 PM EDT) Lactate Dehydrogenase 148 110 - 220 unit/L [facility] Blood 08/23/2021 1:11 PM EDT 08/23/2021 1:16 PM EDT Narrative Resulting Agency Comment Spec In Lab Tres Graham MD CHEMISTRY ORDERA BLES Performing Organization Address City/[facility]/ZIP Co de Phone Number [facility] [place] [address] documented in this encounter Visit Diagnoses Diagnosis Non-small cell carcinoma of left lung, stage 1 documented in this encounter Care Teams Home Care Rn Relationship Specialty Start Date End Date Aurelia Bobby MD [address] [place] [address] PCP - General 08/31/14 01/23/24 documented as of this encounter
--- OUTSIDE RECORDS SUMMARY | 2024-07-15 14:28 | XMS_ITS | Encounter Summary ---
Author Organization [facility] [place] [address] Care Team Providers Care Magnetometer Operator Name Role Phone Aurelia Bobby MD Primary Care Provider [phone] Encounter Details Date Type Department Care Team (Late st Contact Info) Description 01/26/2021 7:21 AM EST - 01/26/2021 10:30 AM EST Hospital En[place] [phone] Georges Bright MD [facility] [place] [address] Discharge Disposition: Home Social History Tobacco Use [...] Sign Reading Time Taken Comments Blood Pressure 126/96 01/26/2021 9:50 AM EST Pulse 63 01/26/2021 9:15 AM EST Temperature 36.5 ??C (97.7 ??F) 01/26/2021 8:00 AM ES T Respiratory Rate 16 01/26/2021 9:50 AM EST Oxygen Saturation 97% 01/26/2021 9:50 AM EST Inhaled Oxygen Concentration - - Weight - - Height - - Body Mass Index - - documented in this encounter Discharge Instructions * Discharge Instructions* Kenney Mcmillan, RN - 01/26/2021 9:28 AM EST Upper [...] the day after the procedure, use an qblw-hxe-uzfzwmc spray to numb your throat. Sucking on [...] occurs, please contact your Doctor. Please call [phone] before 8pm Mon-Fri with problems, questions or concerns. If you call after 8pm or on weekends, call the Hospital at [phone] and ask to speak to the Communications Marketing Intern transportation manager and the run boat operator will contact that person for you. When should you call for help? Call [phone] anytime you think you may need emergency [...] any problems. Where can you learn more? [facility] View your After Visit Summary and more online at [email or web address] If you would like to provide feedback about your hospital experience, please call the Office of Patient and Family Relations at . If you have received this After Visit Summary in error, please immediately return it in person to the department, or notify the [facility] Privacy Office by calling toll free at between the hours of 8AM and 5PM to arrange for our retrieval of the documents at no cost to you. Content Version: 12.2 ?? [id number] [employer]. Care instructions adapted under license by [facility]. If you have questions about a medical condition or this instruction, always ask your healthcare professional. [employer] disclaims any warranty or liability for your use of this information. documented in this encounter Medications at Time of Discharge Medication Sig Dispensed Refills Start Date End Date rnbylyoycei-vvtsevatf-e ilanter (Trelegy Ellipta) 100-62.5-25 mcg Disk with [...] needed for Wheezing. Use with spacer 01/28/2024 yyxoeyeggtj-lgjxifyoe-j ilanter (Trelegy Ellipta) 100-62.5-25 mcg Disk with [...] complication. Informed Consent signed by patient (or business banking representative). documented in this encounter Plan of Treatment Upcoming Encounters Date Type Department Care Team (Late st Contact Info) Description 09/01/2024 4:30 PM EDT Office Visit Dermatology at [place] [address] [place] [address] Ruma Echavarria MD [facility] DR [address] [place] [address] documented as of this encounter Procedures Procedure Name Priority Date/Time Associated Diagnosis Comments SPECIMEN TO PATHOLOGY Routine 01/26/2021 9:20 AM EST SPECIMEN TO PATHOLOGY Routine 01/26/2021 9:20 AM EST SURGICAL PATHOLOGY REPORT Routine 01/26/2021 9:02 AM EST Upper Gi Endoscopy, Biopsy ([id number]) 01/26/2021 8:42 AM EST egd 1 year surveillance UPPER GI ENDOSCOPY Routine 01/26/2021 8: 22 AM EST documented in this encounter Results * Specimen to Pathology (01/26/2021 9:20 AM EST) AP Specimen 01/26/2021 9:20 AM EST 01/26/2021 9:20 AM EST Narrative [facility] - 01/26/2021 9:20 AM EST Specimen requisition ordered. ??Separate Pathology report to follow Georges Bright MD PATHOLOGY/CYTOLOG Y ORDERABLES [facility] [place] [address] * Specimen to Pathology (01/26/2021 9:20 AM EST) AP Specimen 01/26/2021 9:20 AM EST 01/26/2021 9:20 AM EST Narrative [facility] - 01/26/2021 9:20 AM EST Specimen requisition ordered. ??Separate Pathology report to follow Georges Bright MD PATHOLOGY/CYTOLOG Y ORDERABLES [facility] [place] [address] * Surgical Pathology Report (01/26/2021 9:02 AM EST) Final Diagnosis [id number] ? Location: 4T; EA12; A The signing [...] Ramesh MD Verified: ??01/30/2021 ?Pathologist Performed at: ??-[facility] Dept. of Pathology, [place], [place] SPECIMEN(S) SUBMITTED A - gastric body, [...] labeled B1. ??sns 01/30/2021 2:48 PM EST [facility] GI Biopsy 01/26/2021 9:02 AM EST 01/26/2021 9:02 AM EST GI Biopsy 01/26/2021 9:02 AM EST 01/26/2021 9:02 AM EST Georges Bright MD PATHOLOGY/CYTOLOG Y ORDERABLES Performing Organization Address City/State/[facility] Co de Phone Number [facility] [place] [address] * UPPER GI ENDOSCOPY (01/26/2021 8:22 AM EST) UPPER GI ENDOSCOPY [facility] Endoscopy Procedure Date: 01/26/2021 8:22 AM ? Patient Name: Isaura Arellano ? Date of : 1950 ? Age: 70 ? Order #: [id number] ? Instrument Name: [facility]-[id number] ? Procedure: ? Upper GI endoscopy Indications: ? Surveillance procedure, Follow-up of ? polyps in the duodenum and stomach Patient Profile: ? This is a 70 year old female with a ? 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 Georges Bright MD, Ruth Amin ? Jose, RN, Susan Magana MD: ?Aurelia Bobby MD Medicines: [...] 8:00 AM EST 100 mL/hr 100 mL/hr documented in this [...] injection (CANCELED) ONCE PRN, Starting on Halle 01/26/21 at 0846, Until Halle 01/26/21 at 1240, Intra-Operative (Intra-Procedure), Routine 0846 (Given - Provid er: Ruth Garcia RN)0849 (Given - Provider: Ruth Garcia RN)0857 (Given - Provider: Ruth Garcia RN) midazolam (pf) (Versed) (1 mg/mL) multi-dose injection (CANCELED) ONCE PRN, Starting on Halle 01/26/21 at 0846, Until Halle 3 at 1240, Intra-Operative (Intra-Procedure), Routine 0846 (Given - Provid er: Ruth Garcia RN)0849 (Given - Provider: Ruth Garcia RN)0856 (Given - Provider: Ruth Garcia RN)0859 (Given - Provider: Ruth Garcia RN)0904 (Given - Provider: Ruth Garcia RN) documented in this encounter Care Teams Magnetometer Operator Relationship Specialty Start Date End Date Aurelia Bobby MD [address] [facility] [address] [place] [address] PCP - General 08/31/14 01/23/24 documented as of this encounter
--- OUTSIDE RECORDS SUMMARY | 2024-07-15 14:28 | XMS_ITS | Encounter Summary ---
Author Organization [facility] [place] [address] Care Team Providers Care Behavioral Health Director Name Role Phone Aurelia Bobby MD Primary Care Provider Encounter Details Date Type Department Care Team (Late st Contact Info) Description 05/09/2022 Ancillary Procedure [place] [address] Auerlia Bobby MD [address] [place] [address] [address] [facility] [address] [place], [place] [id number] Social History Tobacco Use Types Packs/Day Years [...] 4:30 PM EDT Office Visit Dermatology at [facility] [address] [place] [address] Ruma Echavarria MD [facility] [place] [address] documented as of this encounter Procedures Procedure Name Priority Date/Time Associated Diagnosis Comments FILM LIBRARY STORAGE ONLY DX SPINE Routine 05/09/2022 12:00 AM EDT documented in this encounter Results * Film Library- Storage Only DX Spine (05/09/2022 12:00 AM EDT) Narrative [facility] - 05/22/2022 8:39 PM EDT This exam is auto-finalizing. It's purpose is for storage only. Aurelia Bobby MD G FILM LIBRARY ORD ERABLES [place], [place] documented in this encounter Visit Diagnoses Not on filedocumented in this encounter Care Teams Behavioral Health Director Relationship Specialty Start Date End Date Aurelia Bobby MD [address] [place] [address] [address] [place] [address] PCP - General 08/31/14 01/23/24 documented as of this encounter
--- OUTSIDE RECORDS SUMMARY | 2024-07-15 14:29 | XMS_ITS | Encounter Summary ---
Author Organization [facility] Address [facility] [place] [address] Care Team Providers Care Traffic Personnel Supervisor Name Role Phone Aurelia Bobby MD Primary Care Provider [phone] Reason for Visit * Auth/Cert Specialty Diagnoses / Procedures Referred By Bk de leon Referred To Contact Diagnoses Major depressive disorder UNSPECIFIED MOOD D/O Referral ID Status Reason Start Date Expiration Date Visits Re quested Visits Authorized [id number] 1 1 Encounter Details Date Type Department Care Team (Latest Contact Info) Description 01/01/2019 8:55 PM EST - 01/14/2019 5:00 PM [facility] Hospital Encounter [address] [address] Lore Ryan MD [facility] [place] [address] Depression, unspecified depression type; Hypertension, unspecified type Discharge Disposition: Home Social History Tobacco Use Types Packs/Day Years Used Date Smoking Tobacco: Former Cigarettes Q uit: 03/1988 Smokeless Tobacco: Never Tobacco Cessation:Counseling Given: No Comments:uses nicotene gum when I get stressed Alcohol Use Standard Drinks/Week Comments Yes 21 (1 standard drink = 0.6 oz pure alcohol) drinks more when stressed, last evening Sex and Gender Information Value Date Recorded Sex Assigned at Female 06/08/2021 7:37 PM EDT Gender Identity Not on file Sexual Orientation Not on file documented as of this encounter Last Filed Vital Signs Vital Sign Reading Time Taken Comments Blood Pressure 126/80 01/14/2019 7:15 AM EST Pulse 72 01/14/2019 7:15 AM EST Temperature 36.4 ??C (97.5 ??F) 01/14/2019 7:15 AM ES T Respiratory Rate 17 01/14/2019 7:15 AM EST Oxygen Saturation 99% 01/14/2019 7:15 AM EST Inhaled Oxygen Concentration - - Weight 54.4 kg (120 lb) 01/11/2019 11:00 AM EST Height 162.6 cm (5' 4.02) 01/01/2019 8:59 PM ES T Body Mass Index 20.59 01/01/2019 8:59 PM EST documented in this encounter Discharge Summaries * Lore Ryan MD - 01/14/2019 5:00 PM EST Images from the original note were not included. Discharge Summary Patient Name: Isaura Arellano Patient Age: 68 y.o. Language: Kyrgyz Race: White Ethnicity: Not nor Admit date: 01/01/2019 Discharge date and time: 01/14/19 @ 1700 Attending Physician: Lore Ryan MD Discharge Physician: Juan Luis Glez MD Discharge Diagnoses (Hospital Problems) and Secondary Diagnoses (Chronic Problems): Active Hospital Problems Diagnosis ??? Major depressive disorder ??? Alcohol withdrawal, possible, resolved Resolved Hospital Problems No resolved problems to display. Active Non-Hospital Problems Diagnosis ??? Ganglion ??? Colon polyp ??? Arthralgia of hip ??? Postconcussion syndrome ??? Arthralgia ??? Herpes simplex virus (HSV) infection ??? Memory impairment ??? Unilateral complete paralysis of vocal cord ??? Hypertension ??? Lacunar infarction ??? Non-small cell carcinoma of left lung, stage 1 ??? Tinnitus ??? Abnormal auditory perception ??? Depression Follow-up Recommendations for Providers: Please monitor the patient's condition, and adjust medications accordingly - Started on lamictal for mood stabilization and vyvanse for TBI - Attempted to start prazosin but patient not interested in taking Follow-up Providers/Appointments: General Instructions After Care Plan [facility] Intake appointment 1 1/2 hours Rafael Jhaveri January 22, 2018 at 1:00PM [address], [place] [address] PCP Aurelia Bobby MD [id number] Advance Care Plan The patient has an appointed surrogate decision maker: no Name of surrogate decision maker: na The patient has medical advance directives: no The patient has psychiatric advance directives:no The patient was offered information about designating a surrogate decision maker, medical advance directives and psychiatric advance directives. The patient declines further information at this time. All eleven elements of the Transition Record have been reviewed with the patient. Inpatient Provider Contact Information: For questions regarding this document (including laboratory or other studies) or issues relating tothis hospitalization, please contact your patient primary care pediatrician, Barby Reveles RN, through the [facility] Sales Management Intern . Issues after hours and on weekends will be handled by the residential lawn specialist on-call who can be reached through the [facility] Sales Management Intern. Medication Instructions Continue to take all of the medications as instructed. Any medication changes will be addressed at your next outpatient appointment with the individual who prescribes your medications. Future Appointments and Orders Future Appointments and Orders Future Appointments Provider Department Dept Phone 01/21/2019 1:15 PM Elsie Cruz, MICHAELLE; Tres Graham MD Hematology [facility] at: [facility] [phone] Reason for Hospitalization: safety, stabilization and medication management History of Presentation: As per the 01/01/2019 admission H&P: Patient reports a long history of depression. She has been experiencing episodes lasting 3-4 days at a time, about once a month of increased mood symptoms. ??Symptoms include depressed mood, long frequent tearful episodes, decreased self care, anhedonia, worthlessness, hopelessness and low energy.??She will isolate and not leave the home. ??She reports suicidal ideation during these episodes. ??Last night she had SI with plan to hang herself. She reports she googled how to make a noose and then proceeded to make one. ??When asked if she put it around her neck she reports you make it aroundyour neck. ??Last night she tore the house apart looking for her 's gun, a 22 caliber rifle with thoughts of shooting herself. ??She denies history of suicide attempt. ??She also reports during these episodes she is easily agitated, annoyed and irrational. ??She will accuse her of having a girlfriend and believes people are talking about her. ??She will feel that she is evil and that her children and dogs do not love her. ??Last night she also had thoughts of killing her by suffocating him with a pillow. ??This is not the first time she has had the thought/ threatened to do it. ?? She has been on multiple antidepressant medications over the last 30+ years. She has been in and out of therapy for many years but stopped in August of last year when she was completely weaned off of her psychiatric medications. ??She chose to stop the medications because she did not like how theymade her feel emotionless. ?? Patient verified above information. ?? Isaura reports that last night as she was googling how to make a noose, she was directed to a suicide hotline, which she did call. She did not find it helpful as she and the clothing trades workers had a verbal altercation. ?? Currently, the patient safe in the unit. She feels comfortable reaching out to nursing staff regarding suicidal ideations. Denies current suicidal and homicidal ideations. Continues to endorse that no one likes her, but is more amenable that it is her opinion. ?? Reports poor sleep quality and naps during the day. Reports she has intense irritability about oncea month which occur during longer naps in the afternoon. Reports sad mood, guilt, concentration, appetite, low energy. Reports good energy, interests. She reports she is a picky eater. ?? Denies PTSD, OCD, ADHD symptoms. ?? Reports anxiety about everything. Propanolol and klonopin help with anxiety. She reports she takes Klonopin 1 mg at bed time. ?? Reports that she drinks between 3-4 drinks (beer/wine/liquor) a day, but might have been consuming more this week. Hospital Course: Isaura Arellano was voluntarily admitted to inpatient psychiatry for safety, stabilization, and medication optimization. Standard admission labs were ordered and pertinent results are located below. Given Isaura's report of daily moderate alcohol consumption including possibly drinking more than her usual on the week prior to admission, the team felt it prudent to place Isaura on an Ativan assessment scale for possible alcohol withdrawal. Isaura did not score on this scale (however did receiveAtivan for anxiety/agitation) and it was discontinued early into her admission. From that point on,Isaura was managed on clonaempam which she is also prescribed by her outpatient providers. Isaura was admitted to the psychiatric unit for irritable mood and suicidal ideation. Most likely due to an unspecified mood disorder or behavioral changes secondary to a general medical condition (TBI). While she was on the unit Isaura was started on lamictal 25 mg QD for mood stabilization and vyvanse 30 mg QD for TBI. While Isaura was on the unit she was also offered prazosin. She stated though that she was interested in taking the medication, and she refused the prazosin at night time. While she was on the unit there were behavioral problems were Isaura was put on an IEA after wanting to leave, but she was not safe to leave due to SI and HI of wanting to smother her . The IEA waslifted though on 01/14 due to her participating in treatment team and adhering to her treatment regimen. On the day of discharge Isaura was looking forward to going home with her . Her felt that she was safe to return home. Isaura did undergo 2 ECT treatments while inpatient, but these were stopped due to her refusing further ECT treatment. No mental health prescriber was established, so left a message with her PCP asking if it was possible for the PCP to prescribe the medications. The PCP was out of the office when the phone call was made. While Isaura was on the unit she did complain of chest pain. EKG and troponins were wnl. On the day of discharge, the patient denied thoughts of suicide, homicide, or violence. Follow up was scheduled as described below, and this information was [facility] the [facility] Patient was also provided with emergency contact information. Functional and Cognitive Status: The patient is able to preform ADLs independently and is at baseline function and cognition. Important Studies: none Discharge Medications: Your Medications New Medications Dose Details lamoTRIgine 25 mg Tab Commonly known as: LaMICtal Take 1 tablet by mouth daily. Take 25 mg every day until 01/23 then take 50 mg a day for two weeks 25 mg Quantity: 20 tablet Refills: 0 lisdexamfetamine 30 mg Cap Commonly known as: VYVANSE Take 1 capsule by mouth daily. 30 mg Quantity: 14 capsule Refills: 0 Continued medications with new dosing Dose Details * clonazePAM 1 mg Tab Commonly known as: KlonoPIN Take 1 tablet by mouth nightly. What changed: ?? medication strength ?? how much to take ?? when to take this ?? reasons to take this 1 mg Quantity: 14 tablet Refills: 0 * clonazePAM 0.5 mg Tab Commonly known as: KlonoPIN Take 1 tablet by mouth 2 times daily as needed for Anxiety (or irritability). What changed: You were already taking a medication with the same name, and this prescription was added. Make sure you understand how and when to take each. 0.5 mg Quantity: 14 tablet Refills: 0 * This list has 2 medication(s) that are the same as other medications prescribed for you. Read thedirections carefully, and ask your doctor or other care provider to review them with you. Continued medications, unchanged Dose Details ADVAIR DISKUS 250-50 mcg/dose Dsdv Inhale 1 puff into the lungs every 12 hours. Generic drug: fluticasone-salmeterol 1 puff Refills: 0 albuterol 90 mcg/actuation Hfaa Inhale 2 puffs into the lungs as needed for Wheezing. Use with spacer 2 puff Refills: 0 aspirin 81 mg Tbec Take 81 mg by mouth daily. Reported on 03/19/2017 81 mg Refills: 0 b complex vitamins Cap Take 1 capsule by mouth daily. 1 capsule Refills: 0 levothyroxine 50 mcg Tab Commonly known as: SYNTHROID Take 50 mcg by mouth daily. 50 mcg Refills: 0 magnesium oxide 400 mg (241.3 mg magnesium) Tab Commonly known as: MAG-OX Take 500 mg by mouth daily. 500 mg Refills: 0 Vitamin D 1,000 unit Cap Take by mouth. Generic drug: cholecalciferol (Vitamin D3) Refills: 0 STOPPED Medications dextroamphetamine-amphetamine 10 mg Tab Commonly known as: ADDERALL Antipsychotic Quality Measure (select one of three reasons): No Updated Allergies/ADRs: No Known Allergies Immunizations Given this Hospitalization: Immunization History Administered Date(s) Administered ??? Td, adult 11/12/2005 Smoking Status at Discharge: Social History Tobacco Use Smoking Status Former Smoker ??? Types: Cigarettes ??? Last attempt to quit: 03/1988 ??? Years since quittin.8 Smokeless Tobacco Never Used Tobacco Comment uses nicotene gum when I get stressed Instructions Given to Patient at Discharge: Patient Instructions PATIENT DISCHARGE INSTRUCTIONS Reason for admission: depressed mood and suicidal ideation Principal diagnosis at discharge: Major depressive disorder Vital Signs: BP: 126/80, Heart Rate: 72, Temp: 36.4 ??C (97.5 ??F), Resp: 17, BMI (Calculated): 20.24 Height: 162.6 cm (5' 4.02) (01/01/19 2059) Weight: 54.4 kg (120 lb) (01/11/19 1100) Operations and Procedures: Procedure(s): ECT (WRVU 2.5) 01/08/2019 Procedure(s): ECT (WRVU 2.5) 01/08/2019 Procedure(s): ECT (WRVU 2.5) 01/08/2019 Procedure(s): ECT (WRVU 2.5) 01/08/2019 Procedure(s): ECT (WRVU 2.5) 01/08/2019 Important Lab Data: Psychiatry Labs: Preg: No results found for: HCGQUAL, HCGQUANT Heme: No results found for: WBC, HGB, HCT, PLATELET, MCV, NEUTROABS No results found for: HA1C, SEDRATE Chem: No results found for: NA, K, CL, CO2, BUN, GLUCOSE, GLUCFASTING No results found for: CALCIUM, MAGNESIUM, PHOS LFTs: No results found for: ALT, AST, GGT, ALKPHOS, BILITOT, AMMONIA Coags: No results found for: PTT, PT, INR Thyroid: Lab Results Component Value Date TSH 1.83 01/01/2019 Lipids and HgbA1C: No results found for: CHLPL, HDL, CHOLHDL, LDLCHOL, LDLDIRECT, TRIG No results found for: HA1C Vit Lvls: No results found for: [id number], SFOLATE UA: No results found for: GLUCOSEU, KETONESUA, PROTEINUADIP, BLOODUADIP, LEUKOESTERUA, NITRATEUA, WBCUA (May not represent most recent UA results. See eD-H labs for more details.) Tox: No results found for: ETHANOL, ACTMNPHEN, SALICYLATE, LEAD No results found for: UDAUSCREEN Rx Lvls: No results found for: LITHIUM, CARBAMAZEPIN, VALPROATE, LAMOTRIGINE, CLOZAPINE Pending Labs, Procedures, and studies at Discharge: none Discharge Disposition: home Primary Care Physician: Aurelia Bobby MD [phone] Special Physician Instructions: Isaura was admitted to the psychiatric unit due to suicidal ideation. While she was admitted she did undergo ECT treatment. She was started on vyvanse 30 mg every day for her TBI and lamictal 25 mg every day for mood stabilization. She plans to follow up with her PCP and a therapist. This medication is generally very safe when the dose is increased slowly over time. Please call theclinic if any rash (or other concerning symptoms) develops as discussed during clinic. ?? Please follow this Lamotrigine dosing schedule to get the the correct dose safely: STARTED on 01/09 taking Lamotrigine 25mg (ONE tablet) AT NIGHT TIME ONLY for TWO WEEKS. THEN on 01/23, start taking Lamotrigine 25mg (ONE tablet) IN THE MORNING AND Lamotrigine 25mg (ONE tablet) AT NIGHT for TWO WEEKS. THEN on 02/06, start taking Lamotrigine 50mg (TWO tablets) IN THE MORNING AND Lamotrigine 50mg (TWO tablets) AT NIGHT for TWO WEEKS. THEN on 02/20, start taking Lamotrigine 75mg (THREE tablets) IN THE MORNING AND Lamotrigine 75mg (THREE tablets) AT NIGHT for TWO WEEKS. THEN on 03/06, start taking Lamotrigine 100mg (FOUR tablets) IN THE MORNING AND Lamotrigine 100mg (FOUR tablets) AT NIGHT from then onwards. Depending on how you do, further dose adjustments may be made in the future. Special Instructions Provided to Isaura Hanh Arellano: Call your doctor, your local mental health center, or your local emergency room if you develop worsening symptoms of depression, anxiety, thoughts of harming yourself, thoughts of harming others, or any other decline in your overall condition. [facility] Emergency Services: [facility] [phone] [facility] Emergency Services: [phone] [facility] Central Access Services: [phone] [facility] Main Line: [phone] Activity level: no restrictions from psychiatry Diet: no restrictions from psychiatry Driving: do not drive if sedated by medications Medications have been reviewed with the patient and the patient understands the use and side effects of these medications as evidenced by discussions on interdisciplinary rounds. For patients that received ECT, list number of treatments received during this admission and parameters of last ECT received: Number of treatments: 2 ECT parameters: Bitemporal / ? 31 second motor seizure 56-62 second EEG seizure (Obscured by artifact) ?? Patient was stabilized and appeared to tolerate the procedure. Complications: none Discharge References/Attachments None Discharge Condition/Prognosis: Satisfactory condition. Prognosis is dependent on patient's participation in ongoing treatment and adherence with prescribed medications. Signed: Juan Luis Glez MD 01/15/2019 Inpatient Provider Contact Information: Emergency Services (Crisis Line): [phone] [facility]: [phone] [facility] Main Line: [phone] documented in this encounter Discharge Instructions * Discharge Instructions* Barby Reveles RN - 01/15/2019 2:06 PM EST [facility] Care Plan [facility] Intake appointment 1 1/2 hours Rafael Jhaveri January 22, 2018 at 1:00PM [address] [place] [phone] PCP Aurelia Bobby MD Patient to call Advance Care Plan The patient has an appointed surrogate decision maker: no Name of surrogate decision maker: na The patient has medical advance directives: no The patient has psychiatric advance directives:no The patient was offered information about designating a surrogate decision maker, medical advance directives and psychiatric advance directives. The patient declines further information at this time. All eleven elements of the Transition Record have been reviewed with the patient. Inpatient Provider Contact Information: For questions regarding this document (including laboratory or other studies) or issues relating tothis hospitalization, please contact your patient primary care pediatrician, Barby Reveles RN, through the [facility] Sales Management Intern . Issues after hours and on weekends will be handled by the residential lawn specialist on-call who can be reached through the [facility] Sales Management Intern. Medication Instructions Continue to take all of the medications as instructed. Any medication changes will be addressed at your next outpatient appointment with the individual who prescribes your medications. * Patient Instructions* Juan Luis Glez MD - 01/14/2019 4:38 PM EST PATIENT DISCHARGE INSTRUCTIONS Reason for admission: depressed mood and suicidal ideation Principal diagnosis at discharge: Major depressive disorder Vital Signs: BP: 126/80, Heart Rate: 72, Temp: 36.4 ??C (97.5 ??F), Resp: 17, BMI (Calculated): 20.24 Height: 162.6 cm (5' 4.02) (01/01/199) Weight: 54.4 kg (120 lb) (01/11/19 1100) Operations and Procedures: Procedure(s): ECT (WRVU 2.5) 01/08/2019 Procedure(s): ECT (WRVU 2.5) 01/08/2019 Procedure(s): ECT (WRVU 2.5) 01/08/2019 Procedure(s): ECT (WRVU 2.5) 01/08/2019 Procedure(s): ECT (WRVU 2.5) 01/08/2019 Important Lab Data: Psychiatry Labs: Preg: No results found for: HCGQUAL, HCGQUANT Heme: No results found for: WBC, HGB, HCT, PLATELET, MCV, NEUTROABS No results found for: HA1C, SEDRATE Chem: No results found for: NA, K, CL, CO2, BUN, GLUCOSE, GLUCFASTING No results found for: CALCIUM, MAGNESIUM, PHOS LFTs: No results found for: ALT, AST, GGT, ALKPHOS, BILITOT, AMMONIA Coags: No results found for: PTT, PT, INR Thyroid: Lab Results Component Value Date TSH 1.83 01/01/2019 Lipids and HgbA1C: No results found for: CHLPL, HDL, CHOLHDL, LDLCHOL, LDLDIRECT, TRIG No results found for: HA1C Vit Lvls: No results found for: [id number], SFOLATE UA: No results found for: GLUCOSEU, KETONESUA, PROTEINUADIP, BLOODUADIP, LEUKOESTERUA, NITRATEUA, WBCUA (May not represent most recent UA results. See eD-H labs for more details.) Tox: No results found for: ETHANOL, ACTMNPHEN, SALICYLATE, LEAD No results found for: UDAUSCREEN Rx Lvls: No results found for: LITHIUM, CARBAMAZEPIN, VALPROATE, LAMOTRIGINE, CLOZAPINE Pending Labs, Procedures, and studies at Discharge: none Discharge Disposition: home Primary Care Physician: Aurelia Bobby MD [phone] Special Physician Instructions: Isaura was admitted to the psychiatric unit due to suicidal ideation. While she was admitted she did undergo ECT treatment. She was started on vyvanse 30 mg every day for her TBI and lamictal 25 mg every day for mood stabilization. She plans to follow up with her PCP and a therapist. This medication is generally very safe when the dose is increased slowly over time. Please call theclinic if any rash (or other concerning symptoms) develops as discussed during clinic. ?? Please follow this Lamotrigine dosing schedule to get the the correct dose safely: STARTED on 01/09 taking Lamotrigine 25mg (ONE tablet) AT NIGHT TIME ONLY for TWO WEEKS. THEN on 01/23, start taking Lamotrigine 25mg (ONE tablet) IN THE MORNING AND Lamotrigine 25mg (ONE tablet) AT NIGHT for TWO WEEKS. THEN on 02/06, start taking Lamotrigine 50mg (TWO tablets) IN THE MORNING AND Lamotrigine 50mg (TWO tablets) AT NIGHT for TWO WEEKS. THEN on 02/20, start taking Lamotrigine 75mg (THREE tablets) IN THE MORNING AND Lamotrigine 75mg (THREE tablets) AT NIGHT for TWO WEEKS. THEN on 03/06, start taking Lamotrigine 100mg (FOUR tablets) IN THE MORNING AND Lamotrigine 100mg (FOUR tablets) AT NIGHT from then onwards. Depending on how you do, further dose adjustments may be made in the future. Special Instructions Provided to Isaura Arellano: Call your doctor, your local mental health center, or your local emergency room if you develop worsening symptoms of depression, anxiety, thoughts of harming yourself, thoughts of harming others, or any other decline in your overall condition. [facility] Emergency Services: [facility] [phone] [facility] Emergency Services: [phone] [facility] Central Access Services: [phone] [facility] Main Line: [phone] Activity level: no restrictions from psychiatry Diet: no restrictions from psychiatry Driving: do not drive if sedated by medications Medications have been reviewed with the patient and the patient understands the use and side effects of these medications as evidenced by discussions on interdisciplinary rounds. For patients that received ECT, list number of treatments received during this admission and parameters of last ECT received: Number of treatments: 2 ECT parameters: Bitemporal / ? 31 second motor seizure 56-62 second EEG seizure (Obscured by artifact) ?? Patient was stabilized and appeared to tolerate the procedure. Complications: none documented in this encounter Medications at Time of Discharge Medication Sig Dispensed Refills Start Date End Date cholecalciferol, Vitamin D3, 2,000 unit Tablet Daily [...] needed for Wheezing. Use with spacer 01/28/2024 ibuprofen (Advil;Motrin) 200 mg Tablet Take 200 mg by mouth every 6 hours as needed for Pain. 01/25/2023 omeprazole (PriLOSEC) 20 mg Capsule, Delayed Release(E.C.) Take 20 mg by mouth daily. 01/26/2021 clonazePAM (KlonoPIN) 0.5 mg Tablet 0.5 mg as needed. 03/03/2014 2 meclizine (ANTIVERT) 25 mg Tablet, Chewable Four times a day 09/27/2015 0 01/26/2021 traMADol (ULTRAM) 50 mg Tablet Twice a day 08/03/2015 01/25/2020 lamoTRIgine (LAMICTAL) 25 mg Tablet Take 1 tablet by mouth daily. Take 25 mg every day until 01/23 then take 50 mg a day for two weeks 20 tablet 01/15/2019 01/25/2020 clonazePAM (KLONOPIN) 1 mg Tablet Take 1 tablet by mouth nightly. 14 tablet 01/14/2019 08/29/2022 lisdexamfetamine (VYVANSE) 30 mg Capsule Take 1 capsule by mouth daily. 14 capsule 01/15/2019 01/25/2020 cholecalciferol, Vitamin D3, 25 mcg (1,000 unit) Capsule Take by mouth. 01/25 magnesium oxide (MAG-OX) 400 mg Tablet Take 500 mg by mouth daily. 01/26/2021 fluticasone-salmeterol (ADVAIR DISKUS) 250-50 mcg/dose Disk with Device Inhale 1 puff into the lungs every 12 hours. 01/26/2021 aspirin 81 mg Tablet, Delayed Release (E.C.)Indications:Rakan ocarcinoma, lung, left,Non-small cell carcinoma of left lung, stage 1 Take 81 mg by mouth daily. Reported on 03/19/2017 01/25/2020 documented as of this encounter Progress Notes * Brigid Murguia RN - 01/14/2019 5:15 PM EST Psychiatric Nursing Discharge Note Patient Completed Relapse Prevention Plan: yes Patient aware of follow-up appointments: yes Patient evidences understanding of medication use and regime: yes Patient belongings returned: Yes, meds from pharmacy Patient given the opportunity to put crisis line phone number into their personal cell phone at time of discharge. yes Patient left unit with: At what time? 1700 * Salima Perez [facility] - 01/14/2019 1:59 PM EST Inpatient Daily Group Note Group: Open discussion: check-in and discussion how to manage anxiety, find your [place], figure out triggers and set short-term and long-term goals. Attendance: Present Behavior: Relevant Therapeutic Work Observed: Moderate Mood: Calm Notes: Patient engaged and discussed how yoga and jehovah's witness has helped. NEYMAR MOYA, MS 01/14/2019 Inpatient Daily Group Note Group: Goals Group Reviewed principles of behavioral activation, discussed the importance of recognizing avoidance andhow to work towards having behavior be goal focused not mood focused. Reminded patients that during groups the television, computer and patient phones are not available for use and that only water can be brought into the group room and that there is no food allowed during groups. Attendance: Present Behavior: Quiet Mood: Calm Notes: Pt sates she plans to focus on wellness and attend groups. Will be invited to all groups today. HENNY LOCKWOOD 01/14/2019 Inpatient Daily Group Note Group: Change Group Focus of discussion was on the process of change. Reviewed: how change is a process not an event, that you can???t measure progress by how you feel and that you first have to change your behaviors before your emotions catch up. Discussed how patterns of behavior develop and how challenging they areto overcome. Encouraged pts to be active in practicing coping strategies to challenge their currentpatterns of behavior. Discussed the concept of relapse being part of the recovery process and ways to use information from relapse to change behaviors moving forward. Attendance: Present Behavior: Quiet and Attentive Therapeutic Work Observed: Moderate Mood: Calm Notes: Pt was quiet though attentive. HENNY LOCKWOOD 01/14/2019 * Juan Luis Glez MD - 01/14/2019 11:23 AM EST Psychiatry Inpatient - Progress Note 01/14/2019 ID:??Isaura Arellano??is a 68 y.o.??female??admitted on 01/01/2019??for worsening mood symptoms suicidal ideations and homicidal statements. ??Hospital day 6. ?? Diagnosis: Bipolar 1 disorder, mixed episode with symptoms of kee and irritability? Pertinent medical issues being addressed:??Traumatic Brain Injury 2 years ago impacting her mood Interval History: (1,1,4) Per nursing she slept 6.75 hours, denies depression, denies anxiety, denies SI States that her mood is good today. She is ready to go home, and we discussed that tomorrow is still her discharge date because we want to make sure she has follow up care. She has been going to groups and has found them helpful. Her plans for today include continuing going to groups. Denies SI today. Review of Systems: (0,1,2) CONST no recent weight change and no fever CV no angina, no palpitations and no dyspnea on exertion RESP no shortness of breath, no cough and no wheezing GI no nausea, no vomiting and no diarrhea NEURO no numbness, no tremors and no weakness + headache MS pain headache PSYCH See above Other Suicide Risk Factors on Day of Admission: Enduring Factors: history of substance abuse, chronic mental health problems, limited coping skills, poor emotional regulation and impulsive or aggressive tendenancies Dynamic Factors: depressive symptoms, recent substance abuse and recent diagnosis/worsening of a significant medical illness Protective Factors: family and community support Access to Firearms: No Physical Exam: (1,6,9) Vitals (24hr Range): Temp: [36.4 ??C (97.5 ??F)] Resp: [17] Heart Rate: [72] BP: (126)/(80) SpO2: [99 %] Patient Vitals for the past 168 hrs: Weight 01/11/19 1100 54.4 kg (120 lb) Musculoskeletal System: normal gait and balance, ambulates independently, no atrophy, no abnormal movements and no stiffness Mental Status Exam: ? Appearance:??age appropriate and dressed appropriately ? Behavior:??pleasant, calm, cooperative, engaged in the interview ? Speech:??normal pitch, normal volume, normal rate and normal rhythm ? Language:??fluent in montenegrin ? Mood:??good ? Affect:??calm and cooperative and mood-congruent ? Thought Process: Linear logical goal-directed ? Associations:??intact without loose associations or flight of ideas ? Thought Content:??denied homicidal ideation and denied suicidal ideation ? Perception:??denied auditory hallucinations denied visual hallucinations ? Orientation:??grossly intact by interview ? Attention/Concentration:??able to sustain focus for most of the interview ? Cognition:??grossly intact by interview ? Memory:??recent and remote memory grossly intact ? Fund of Knowledge:??appropriate for age and level of functioning ? Insight:??limited ? Judgment:??limited Boaz Suicide Risk Scale (most recently completed): Wish to be : Have you wished you were or wished you could go to sleep and not wake up?: No(01/02/19899) Suicidal Thoughts: Have you had any actual thoughts of killing yourself?: No (01/14/19899) Suicidal Thoughts with Method (without Specific Plan or Intent to Act): Have you been thinking about how you might do this?: Yes (01/01/192123) Suicidal Intent (without Specific Plan): Have you had these thoughts and had some intention of acting on them?: Yes (01/01/192123) Suicidal Intent with Specific Plan: Have you started to work out or worked out the details of how to kill yourself? Do you intend to carry out this plan?: Yes (01/01/192123) Suicide Behavior Question: Have you ever done anything, started to do anything, or prepared to do anything to end your life?: No (01/14/19 0900) Current Medications: Scheduled: ??? prazosin 1 mg Oral Nightly ??? lisdexamfetamine 30 mg Oral Daily ??? lamoTRIgine 25 mg Oral Daily ??? levothyroxine 50 mcg Oral QAM ??? clonazePAM 1 mg Oral Nightly PRN: traZODone, hydrOXYzine, ondansetron, ibuprofen, traMADol, acetaminophen, senna, melatonin, hydrOXYzine, psyllium, risperiDONE, nicotine polacrilex, clonazePAM, sodium chloride, propranolol Labs: Psychiatry Labs Preg: No results found for: HCGQUAL, HCGQUANT Heme: No results found for: WBC, HGB, HCT, PLATELET, MCV, NEUTROABS No results found for: HA1C, SEDRATE Chem: No results found for: NA, K, CL, CO2, BUN, GLUCOSE, GLUCFASTING No results found for: CALCIUM, MAGNESIUM, PHOS LFTs: No results found for: ALT, AST, GGT, ALKPHOS, BILITOT, AMMONIA Coags: No results found for: PTT, PT, INR Thyroid: No results found for: TSH, [id number], TT4 Lipids and HgbA1C: No results found for: CHLPL, HDL, CHOLHDL, LDLCHOL, LDLDIRECT, TRIG No results found for: HA1C Vit Lvls: No results found for: [id number], SFOLATE UA: No results found for: GLUCOSEU, KETONESUA, PROTEINUADIP, BLOODUADIP, LEUKOESTERUA, NITRATEUA, WBCUA (May not represent most recent UA results. See eD-H labs for more details.) Tox: No results found for: ETHANOL, ACTMNPHEN, SALICYLATE, LEAD No results found for: UDAUSCREEN Rx Lvls: No results found for: LITHIUM, CARBAMAZEPIN, VALPROATE, LAMOTRIGINE, CLOZAPINE Assessment: (including Suicide Risk Assessment) Isaura Arellano??is a 68 y.o.??female??admitted on 01/01/2019??for worsening mood symptoms and suicidal ideations and homicidal ideations directed toward her just prior to admission??in the setting of stopping her Abilify, sertraline and topiramate??over the past year. Her IEA will be discontinued today due to her no longer expressing SI/HI and participating in the treatment plan. Current Suicide Assessment: Suicide Risk Assessment: Patient with elevated risk compared to the general population given statements about suicide and homicide on admission, alcohol use, medication noncompliance, and history of traumatic brain injury. Her risk is likely not back at her baseline given her refusal to meaningfully engage in treatment and accept the medication recommendations of her treatment team, she remains irritable and impulsive with little to no insight into her current situation Diagnosis: Major depressive disorder Plan: ?? #??Bipolar I disorder, current episode mixed and history of TBI -Continue vyvanse 30 mg po q day per treatment team for TBI symptoms -Continue lamotrigine for mood stabilization, 25 mg QD for 2 weeks then plan to increase -Continue clonazepam 1 mg po q bedtime for irritability and agitation -Continue prazosin 1 mg po qhs for PTSD symptoms - IEA will be lifted today ?? #??Anxiety and Agitation -Risperidone M-tab (2 mg twice daily PRN) for agitation/anxiety -Propanolol 10mg PO BID PRN anxiety -Continue clonazepam (1 mg nightly);??clonazepa 0.5 mg BID prn anxiety -Prazosin 1 mg QHS for nightmares ?? #??Alcohol use disorder -No longer at acute risk of withdrawal ?? # hypothyroidism -Continue Synthroid 50 mcg QAM ?? # GERD -Continue protonix 20 mg QAM ?? #??Nicotine use disorder ? -Continue Nicotine gum ? Disposition: Plan for d/c on 01/15 to home with #PRNS: ?Sleep: melatonin, hydrozyxine, trazodone ?Anxiety: risperidone as above, hydroxyzine, clonazepam ?Pain: tylenol, tramodol (home med) ?Agitation: risperidone as above?? Outpatient Care: Provider Name Date Contacted By Treatment Team Current Mental Health Prescriber in process with connecting with a mental health prescriber near her home in [place] Current Therapist in process of connecting patient to a therapist near her home PCP Aurelia Bobby MD 01/09 Patient Instruction/Education Provided: Patient provided verbal instructions during rounds regarding the treatment plan. I have reviewed and agree with the multidisciplinary treatment plan. I certify that the patient requires inpatient care for psychiatric treatment for safety, stabilization, and any other therapeutic intervention that could conceivably improve the patient's condition, including medication management, group psychotherapy, establishing adequate outpatient care, and/or diagnostic study. Signed By: Juan Luis Glez MD 01/14/2019 Associated attestation - Lore Ryan MD - 01/14/2019 2:45 PM EST I have seen the patient and reviewed the resident's above history and I agree with the details as written. The assessment and plan were formulated in discussion with me and I agree with them as documented. Major issues addressed: Pt presents with a mask and having a cough. Did well in groups through the day. Was not labile or inappropriate. Mood is good today. Pt has a plan and goal to go home. Afterspeaking with patient's , he would prefer to pick her up today given the storm that is coming overnight. Is aware that we may not have outpatient mental health appointment set up for her and is willing to follow-up on his own after discharge. BP 126/80 (BP Location (NBP): Left arm, Patient Position: Sitting) Pulse 72 Temp 36.4 ??C (97.5??F) (Oral) Resp 17 Ht 162.6 cm (5' 4.02) Wt 54.4 kg (120 lb) SpO2 99% BMI 20.59 kg/m?? Plan: Unspecified mood disorder. Unspecified personality disorder versus behavioral changes secondary to a general medical condition (TBI). I feel that is still been difficult to understand or explain the behaviors that we had seen on the unit during her admission. However, when faced with the ideathat she would not be on an IEA might be able to go home sooner if her behavior was stable, the patient was able to meet the challenge. I do not think that her mood stabilizer can account for this since she is at a very low dose and has only recently started it. The addition of Vyvanse, which may be providing more sustained assistance with executive function versus twice a day Adderall, may help explain some of the control of her behavioral symptoms. Regardless, she has been able to keep herself in control, denies suicidal or homicidal ideation for some days, and is requesting discharge. At this point we will remove the IEA and plan for discharge home with her . They are both aware that appropriate follow-up has not been made and are willing to go home with resources and phone calls to follow-up on their own. Greater than 30 minutes was spent coordinating discharge for this patient and included [id number] and exam, explanation of after visit instructions and medications to the patient and necessary caregivers, documentation, and prescription management. * Neymar Moya, MS - 01/13/2019 10:55 AM EST Inpatient Daily Group Note Group: Goals Group Reviewed principles of behavioral activation, discussed the importance of recognizing avoidance andhow to work towards having behavior be goal focused not mood focused. Reminded patients that during groups the television, computer and patient phones are not available for use and that only water can be brought into the group room and that there is no food allowed during groups. Attendance: Present Behavior: Quiet Mood: Calm Notes: Pt states she is hoping to attend groups today. Wants to focus on getting better. Will invite pt to groups providing she is able to remain calm. SALIMA PEREZ, T 01/13/2019 Inpatient Daily Group Note Group: Relaxation: Reviewed benefits of relaxation and emotion regulation, practiced mindful breathing, body scan and the quieting response. Attendance: Present Behavior: Quiet Therapeutic Work Observed: Moderate Mood: Calm Notes: Patient engaged actively. NEYMAR MOYA, MS 01/13/2019 Inpatient Daily Group Note Group: Interpersonal Issues Reviewed the difference between internal and external communication, provided examples of each. Discussed how the interaction between these two impacts a persons ability to effectively navigate interpersonal relationships. Reviewed ways that substance use/abuse impacts this as well. Discussed non verbal communication and it???s impact on how we ???package?? information. Provided examples. Attendance: Present Behavior: Quiet and Attentive Therapeutic Work Observed: Moderate Mood: Calm Notes: Pt was quiet though attentive. SALIMA PEREZ, [facility] 01/13/2019 Patient attended the following activities: ____Walk __x__Workshop Workshop facilitated by PT/OT gentle movement and stretching. ____Pet visit Additional pertinent information: * Barby Reveles RN - 01/13/2019 8:14 AM EST VM from Patient's . Call returned to patient's spouse who expressed that he was concerned that his was not going to group or not allowed to go to group. I reviewed with him that his is on IEA status and that she is evaluated daily for both safety and ability to participate in grouptherapy. Additionally I explained that patients have 24 hour RN care with opportunity to meet with their RN at a minimum of twice per day and more as needed. Patient's explained to this RN that it seems that someone beyond a nurse would spend time with is her, not getting group she should be getting more, some level beyond a RN would see her. When asked for his input on arranging for after care, patient's explained that his belief was that this RN would have follow up in place as of yesterday and that Dr Ryan had assured him of this on Saturday when they spoke. This RN explained that given his 's difficulty connecting with providers I was seeking his input on who to avoid making an aftercare intake and who his might have an interest in working with as an outpatient. At this point Mr Arellano explained that his had expressed today that she would not be returning to home and wanted nothing further to do with him. I asked that Mr Arellano please continue to call if any concerns arise and that I would be sharing his concerns with patient's treatment team this morning. * Lore Ryan MD - 01/13/2019 8:05 AM EST Psychiatry Inpatient - Progress Note 01/13/2019 ID:??Isaura Arellano??is a 68 y.o.??female??admitted on 01/01/2019??for worsening mood symptoms suicidal ideations and homicidal statements. ??Hospital day 6. ?? Diagnosis: Bipolar 1 disorder, mixed episode with symptoms of kee and irritability? Pertinent medical issues being addressed:??Traumatic Brain Injury 2 years ago impacting her mood Interval History: (1,1,4) -Slept 12 hours -We will not rate depression or anxiety, denies suicidal ideation -Initially refused to take her medications this morning, then took them -This morning received a message from her stating that the patient had called him and said that she was going to leave him after she is discharged from [facility] -On interview today, patient states that she is doing good. She cannot list specific reasons for why this would be. Denies any labile behavior and mood even when confronted with reports of her moodlability that occurred in the hours before our interview. Review of Systems: (0,1,2) CONST no recent weight change and no fever CV no angina, no palpitations and no dyspnea on exertion RESP no shortness of breath, no cough and no wheezing GI no nausea, no vomiting and no diarrhea NEURO no numbness, no tremors and no weakness + headache MS pain headache PSYCH See above Other Suicide Risk Factors on Day of Admission: Enduring Factors: history of substance abuse, chronic mental health problems, limited coping skills, poor emotional regulation and impulsive or aggressive tendenancies Dynamic Factors: depressive symptoms, recent substance abuse and recent diagnosis/worsening of a significant medical illness Protective Factors: family and community support Access to Firearms: No Physical Exam: (1,6,9) Vitals (24hr Range): Temp: [37.7 ??C (99.9 ??F)] Resp: [12] Heart Rate: [107] BP: (148)/(83) SpO2: -- Patient Vitals for the past 168 hrs: Weight 01/11/19 1100 54.4 kg (120 lb) Musculoskeletal System: normal gait and balance, ambulates independently, no atrophy, no abnormal movements and no stiffness Mental Status Exam: ? Appearance:??age appropriate and dressed appropriately ? Behavior:??pleasant, calm, cooperative, engaged in the interview ? Speech:??normal pitch, normal volume, normal rate and normal rhythm ? Language:??fluent in montenegrin ? Mood:??Good. ? Affect:??calm and cooperative and mood-congruent ? Thought Process: Linear logical goal-directed ? Associations:??intact without loose associations or flight of ideas ? Thought Content:??denied homicidal ideation and denied suicidal ideation ? Perception:??denied auditory hallucinations denied visual hallucinations ? Orientation:??grossly intact by interview ? Attention/Concentration:??able to sustain focus for most of the interview ? Cognition:??grossly intact by interview ? Memory:??recent and remote memory grossly intact ? Fund of Knowledge:??appropriate for age and level of functioning ? Insight:??limited ? Judgment:??limited Boaz Suicide Risk Scale (most recently completed): Wish to be : Have you wished you were or wished you could go to sleep and not wake up?: No(01/02/19899) Suicidal Thoughts: Have you had any actual thoughts of killing yourself?: No (01/12/192028) Suicidal Thoughts with Method (without Specific Plan or Intent to Act): Have you been thinking about how you might do this?: Yes (01/01/192123) Suicidal Intent (without Specific Plan): Have you had these thoughts and had some intention of acting on them?: Yes (01/01/192123) Suicidal Intent with Specific Plan: Have you started to work out or worked out the details of how to kill yourself? Do you intend to carry out this plan?: Yes (01/01/192123) Suicide Behavior Question: Have you ever done anything, started to do anything, or prepared to do anything to end your life?: No (01/12/192028) Current Medications: Scheduled: ??? prazosin 1 mg Oral Nightly ??? pantoprazole 20 mg Oral Daily ??? lisdexamfetamine 30 mg Oral Daily ??? lamoTRIgine 25 mg Oral Daily ??? levothyroxine 50 mcg Oral QAM ??? clonazePAM 1 mg Oral Nightly PRN: traZODone, hydrOXYzine, ondansetron, ibuprofen, traMADol, acetaminophen, senna, melatonin, hydrOXYzine, psyllium, risperiDONE, nicotine polacrilex, clonazePAM, sodium chloride, propranolol Labs: Psychiatry Labs Preg: No results found for: HCGQUAL, HCGQUANT Heme: No results found for: WBC, HGB, HCT, PLATELET, MCV, NEUTROABS No results found for: HA1C, SEDRATE Chem: No results found for: NA, K, CL, CO2, BUN, GLUCOSE, GLUCFASTING No results found for: CALCIUM, MAGNESIUM, PHOS LFTs: No results found for: ALT, AST, GGT, ALKPHOS, BILITOT, AMMONIA Coags: No results found for: PTT, PT, INR Thyroid: No results found for: TSH, [id number], TT4 Lipids and HgbA1C: No results found for: CHLPL, HDL, CHOLHDL, LDLCHOL, LDLDIRECT, TRIG No results found for: HA1C Vit Lvls: No results found for: [id number], SFOLATE UA: No results found for: GLUCOSEU, KETONESUA, PROTEINUADIP, BLOODUADIP, LEUKOESTERUA, NITRATEUA, WBCUA (May not represent most recent UA results. See eD-H labs for more details.) Tox: No results found for: ETHANOL, ACTMNPHEN, SALICYLATE, LEAD No results found for: UDAUSCREEN Rx Lvls: No results found for: LITHIUM, CARBAMAZEPIN, VALPROATE, LAMOTRIGINE, CLOZAPINE Assessment: (including Suicide Risk Assessment) Isaura Arellano??is a 68 y.o.??female??admitted on 01/01/2019??for worsening mood symptoms and suicidal ideations and homicidal ideations directed toward her just prior to admission??in the setting of stopping her Abilify, sertraline and topiramate??over the past year. She is currently on an IEA for inability to make a consistent decision regarding SI/HI () and for inability to consistently follow treatment plan that would be expected to improve her symptoms. 01/13/2019: Today, patient continues to exhibit erratic behavior and chooses to discount the information and is brought to her upon interview. It is unclear if this is psychiatric versus personality but collateral information suggests that she has had a lifetime of being difficult. I do think that the attitudes towards her are new and still concerning. We will continue to monitor her behavior and continue with the IEA. I do feel that the patient would benefit from going to groups in order to learn better communication strategies and distress tolerance. We will allow her to be Escort togroups even while she is on the IEA. Current Suicide Assessment: Suicide Risk Assessment: Patient with elevated risk compared to the general population given statements about suicide and homicide on admission, alcohol use, medication noncompliance, and history of traumatic brain injury. Her risk is likely not back at her baseline given her refusal to meaningfully engage in treatment and accept the medication recommendations of her treatment team, she remains irritable and impulsive with little to no insight into her current situation Diagnosis: Major depressive disorder Plan: ?? #??Bipolar I disorder, current episode mixed and history of TBI -Continue vyvanse 30 mg po q day per treatment team for TBI symptoms -Continue lamotrigine for mood stabilization, 25 mg QD for 2 weeks then plan to increase -Continue clonazepam 1 mg po q bedtime for irritability and agitation -Continue prazosin 1 mg po qhs for PTSD symptoms -Patient had involuntary emergency admission paperwork completed and faxed to [facility] on 01/10/2019 given she was demanding to leave the hospital and meets criteria for involuntary emergency admission and is still likely a danger to herself or her at this time given her poor insight and minimal engagement in recommended treatment ?? #??Anxiety and Agitation -Risperidone M-tab (2 mg twice daily PRN) for agitation/anxiety -Propanolol 10mg PO BID PRN anxiety -Continue clonazepam (1 mg nightly);??clonazepa 0.5 mg BID prn anxiety -Prazosin 1 mg QHS for nightmares ?? #??Alcohol use disorder -No longer at acute risk of withdrawal ?? # hypothyroidism -Continue Synthroid 50 mcg QAM ?? # GERD -Continue protonix 20 mg QAM ?? #??Nicotine use disorder ? -Continue Nicotine gum ? Disposition: Patient currently on involuntary emergency admission given her demanding to leave and treatment team recommendations she is still a danger to herself and others at this time given her minimal engagement in treatment, impulsivity, and statements about suicide / homicide on admission to psychiatry. #PRNS: ?Sleep: melatonin, hydrozyxine, trazodone ?Anxiety: risperidone as above, hydroxyzine, clonazepam ?Pain: tylenol, tramodol (home med) ?Agitation: risperidone as above?? Outpatient Care: Provider Name Date Contacted By Treatment Team Current Mental Health Prescriber in process with connecting with a mental health prescriber near her home in [place] Current Therapist in process of connecting patient to a therapist near her home PCP Aurelia Bobby MD 01/09 Patient Instruction/Education Provided: Patient provided verbal instructions during rounds regarding the treatment plan. I have reviewed and agree with the multidisciplinary treatment plan. I certify that the patient requires inpatient care for psychiatric treatment for safety, stabilization, and any other therapeutic intervention that could conceivably improve the patient's condition, including medication management, group psychotherapy, establishing adequate outpatient care, and/or diagnostic study. Signed By: Lore Ryan MD 01/13/2019 * Sanjuanita Ruizperi White - 01/12/2019 1:09 PM EST Addendum note: PCP called: She describes that the patient had a psychiatrist that she was seeing and the person retired or Isaura fired him, she is not sure, and her PCP ended up prescribing her medications since that time which she is comfortable with. PCP describes that the patient has been angry for much of her recent 20 years; seeing primarily depression with worsening in recent months. She reports that she has not had periods of kee in her experience. She reports the patient is often difficult, angry, blaming and had to leave other PCP secondary to recent difficulties with Isaura calling and complaining too often, trying to direct her care (this occurred with her oncologist, her primary care doctors, her therapist and psychiatrist). Her PCP does not feel that her TBI has played a big role in the changes in her behavior or psychiatric struggles; she describes that Isaura was tripped by her dogs' leashes and hit her head, 2-3 years ago. She feels that her psychiatric challenges have been chronic, not particularly exacerbated by her head injury. She is happy to talk anytime about Isaura especially as DC nears. [phone] cell, PCP Dr. Bobby. I shared this information with the patient 3 times throughout the day and she expressed ongoing desire to leave, raising her voice at me, pointing at me and yelling if you were in my shoes for 5 minutes you would understand, rolling her eyes and sharing that her regulatory administrator was coming this afternoon and the staff here can't keep me here. It was explained to her that she has expressed SI, has had severe lability and her family, care team both inpatient and out feel that medication compliance, therapy and psychiatry would help her to remain safe without SI and HI in the community. She yelled that there is no psychiatrist or therapist in her region that she will accept. * Salima Perez MHT - 01/12/2019 11:02 AM EST Inpatient Daily Group Note Group: Goals Group Reviewed daily schedule, patients progress and goals for the day. Reminded patients that during groups the television, computer and patient phones are not available for use and that only water can bebrought into the group room and that there is no food allowed during groups. Attendance: Pt did not attend, was meeting with the team. Currently is RTU status, waiting transferto [facility]. Will continue to assess status and ability to engage in activities/groups. Not appropriate for groups off the unit today. HENNY LOCKWOOD 01/12/2019 * Desiree Ruiz - 01/12/2019 8:42 AM EST Psychiatry Inpatient - Progress Note 01/12/2019 ID:??Isaura Arellano??is a 68 y.o.??female??admitted on 01/01/2019??for worsening mood symptoms suicidal ideations and homicidal statements. ??Hospital day 6. ?? Diagnosis: Bipolar 1 disorder, mixed episode with symptoms of kee and irritability? Pertinent medical issues being addressed:??Traumatic Brain Injury 2 years ago impacting her mood Interval History: (1,1,4) Narrative: Isaura initiated medications on Saturday and over the weekend (Vyvanse and Lamictal). She struggled with lability of her mood and behavior, clogging the toilet in her room purposefully with paper towels, resulting in her room being shut down, and reporting to the care team that she was going to leave. An IEA was put in place secondary to her lack of insight concerning her unclear thinking, her high risk for suicide and her recent report of HI towards her , refusing ECT and refusing meds offered to her. She met with her several times over the weekend and I spoke with him this morning. He reports that he feels that she had one good day of the two, and he feels that if she is willing to continue medications as an outpatient and engage in care with a psychiatrist he feels comfortable taking her home later this week. On rounds Isaura reports that her mood is better and she denies SI or HI. She reports feeling like she would like to prepare for discharge to home. She denies intentionally clogging the toilet and raises her voice during the discussion. She reports she is not interested in trialing unilateral ECTthis week and is willing to continue the Vyvanse (she feels this works better than her adderall forher focus and thinking) as well as Lamictal at the low starting dose. She reports not being sure ifthe meds are helping. Review of Systems: (0,1,2) CONST no recent weight change and no fever CV no angina, no palpitations and no dyspnea on exertion RESP no shortness of breath, no cough and no wheezing GI no nausea, no vomiting and no diarrhea NEURO no numbness, no tremors and no weakness + headache MS pain headache PSYCH See above Other Suicide Risk Factors on Day of Admission: Enduring Factors: history of substance abuse, chronic mental health problems, limited coping skills, poor emotional regulation and impulsive or aggressive tendenancies Dynamic Factors: depressive symptoms, recent substance abuse and recent diagnosis/worsening of a significant medical illness Protective Factors: family and community support Access to Firearms: No Physical Exam: (1,6,9) Vitals (24hr Range): Temp: [37.7 ??C (99.9 ??F)] Resp: [12] Heart Rate: [81-107] BP: (144-148)/(83-94) SpO2: -- Patient Vitals for the past 168 hrs: Weight 01/11/19 1100 54.4 kg (120 lb) Musculoskeletal System: normal gait and balance, ambulates independently, no atrophy, no abnormal movements and no stiffness Mental Status Exam: ? Appearance:??age appropriate and dressed appropriately ? Behavior:??pleasant, calm, cooperative, engaged in the interview ? Speech:??normal pitch, normal volume, normal rate and normal rhythm ? Language:??fluent in montenegrin ? Mood:??better. ? Affect:??calm and cooperative and mood-congruent ? Thought Process:??circumstantial ? Associations:??intact without loose associations or flight of ideas ? Thought Content:??denied homicidal ideation and denied suicidal ideation ? Perception:??denied auditory hallucinations denied visual hallucinations ? Orientation:??grossly intact by interview ? Attention/Concentration:??able to sustain focus for most of the interview ? Cognition:??grossly intact by interview ? Memory:??recent and remote memory grossly intact ? Fund of Knowledge:??appropriate for age and level of functioning ? Insight:??limited ? Judgment:??limited Boaz Suicide Risk Scale (most recently completed): Wish to be : Have you wished you were or wished you could go to sleep and not wake up?: No(01/02/19899) Suicidal Thoughts: Have you had any actual thoughts of killing yourself?: No (01/11/192021) Suicidal Thoughts with Method (without Specific Plan or Intent to Act): Have you been thinking about how you might do this?: Yes (01/01/192123) Suicidal Intent (without Specific Plan): Have you had these thoughts and had some intention of acting on them?: Yes (01/01/192123) Suicidal Intent with Specific Plan: Have you started to work out or worked out the details of how to kill yourself? Do you intend to carry out this plan?: Yes (01/01/192123) Suicide Behavior Question: Have you ever done anything, started to do anything, or prepared to do anything to end your life?: No (01/11/192021) Current Medications: Scheduled: ??? prazosin 1 mg Oral Nightly ??? pantoprazole 20 mg Oral Daily ??? lisdexamfetamine 30 mg Oral Daily ??? lamoTRIgine 25 mg Oral Daily ??? levothyroxine 50 mcg Oral QAM ??? clonazePAM 1 mg Oral Nightly PRN: hydrOXYzine, ondansetron, ibuprofen, traMADol, acetaminophen, senna, melatonin, hydrOXYzine, psyllium, risperiDONE, nicotine polacrilex, clonazePAM, sodium chloride, propranolol Labs: Psychiatry Labs Preg: No results found for: HCGQUAL, HCGQUANT Heme: No results found for: WBC, HGB, HCT, PLATELET, MCV, NEUTROABS No results found for: HA1C, SEDRATE Chem: No results found for: NA, K, CL, CO2, BUN, GLUCOSE, GLUCFASTING No results found for: CALCIUM, MAGNESIUM, PHOS LFTs: No results found for: ALT, AST, GGT, ALKPHOS, BILITOT, AMMONIA Coags: No results found for: PTT, PT, INR Thyroid: No results found for: TSH, [id number], TT4 Lipids and HgbA1C: No results found for: CHLPL, HDL, CHOLHDL, LDLCHOL, LDLDIRECT, TRIG No results found for: HA1C Vit Lvls: No results found for: [id number], SFOLATE UA: No results found for: GLUCOSEU, KETONESUA, PROTEINUADIP, BLOODUADIP, LEUKOESTERUA, NITRATEUA, WBCUA (May not represent most recent UA results. See eD-H labs for more details.) Tox: No results found for: ETHANOL, ACTMNPHEN, SALICYLATE, LEAD No results found for: UDAUSCREEN Rx Lvls: No results found for: LITHIUM, CARBAMAZEPIN, VALPROATE, LAMOTRIGINE, CLOZAPINE Assessment: (including Suicide Risk Assessment) Isaura Arellano??is a 68 y.o.??female??admitted on 01/01/2019??for worsening mood symptoms and suicidal ideations and homicidal ideations directed toward her just prior to admission??in the setting of stopping her Abilify, sertraline and topiramate??over the past year. Isaura decided last week that she did not want to further pursue ECT secondary to side effects. She was amenable to trialing medications again as this has been very helpful in the past; she started vyvanse and lamictal onFriday, targeting her mood symptoms likely worsened by her TBI. Over the weekend she was expressingdesire to leave, her continued to reflect that he felt she was a danger to herself if she we re going home, IEA paperwork was filed. Current Suicide Assessment: Suicide Risk Assessment: Patient with elevated risk compared to the general population given statements about suicide and homicide on admission, alcohol use, medication noncompliance, and history of traumatic brain injury. Her risk is likely not back at her baseline given her refusal to meaningfully engage in treatment and accept the medication recommendations of her treatment team, she remains irritable and impulsive with little to no insight into her current situation Diagnosis: Major depressive disorder Plan: ?? #??Bipolar I disorder, current episode mixed and history of TBI -Continue vyvanse 30 mg po q day per treatment team for TBI symptoms -Continue lamotrigine for mood stabilization, 25 mg QD for 2 weeks then plan to increase -Continue clonazepam 1 mg po q bedtime for irritability and agitation -Continue prazosin 1 mg po qhs for PTSD symptoms -Patient had involuntary emergency admission paperwork completed and faxed to [facility] on 01/10/2019 given she was demanding to leave the hospital and meets criteria for involuntary emergency admission and is still likely a danger to herself or her at this time given her poor insight and minimal engagement in recommended treatment ?? #??Anxiety and Agitation -Risperidone M-tab (2 mg twice daily PRN) for agitation/anxiety -Propanolol 10mg PO BID PRN anxiety -Continue clonazepam (1 mg nightly);??clonazepa 0.5 mg BID prn anxiety -Prazosin 1 mg QHS for nightmares ?? #??Alcohol use disorder -No longer at acute risk of withdrawal ?? # hypothyroidism -Continue Synthroid 50 mcg QAM ?? # GERD -Continue protonix 20 mg QAM ?? #??Nicotine use disorder ? -Continue Nicotine gum ? Disposition: Patient currently on involuntary emergency admission given her demanding to leave and treatment team recommendations she is still a danger to herself and others at this time given her minimal engagement in treatment, impulsivity, and statements about suicide / homicide on admission to psychiatry. #PRNS: ?Sleep: melatonin, hydrozyxine, trazodone ?Anxiety: risperidone as above, hydroxyzine, clonazepam ?Pain: tylenol, tramodol (home med) ?Agitation: risperidone as above?? Outpatient Care: Provider Name Date Contacted By Treatment Team Current Mental Health Prescriber Current Therapist PCP Aurelia Bobby MD 01/09 Patient Instruction/Education Provided: Patient provided verbal instructions during rounds regarding the treatment plan. I have reviewed and agree with the multidisciplinary treatment plan. I certify that the patient requires inpatient care for psychiatric treatment for safety, stabilization, and any other therapeutic intervention that could conceivably improve the patient's condition, including medication management, group psychotherapy, establishing adequate outpatient care, and/or diagnostic study. Signed By: Desiree Ruiz MD 01/12/2019 Associated attestation - Lore Ryan MD - 01/12/2019 2:45 PM EST I have seen the patient and reviewed the resident's above history and I agree with the details as written. The assessment and plan were formulated in discussion with me and I agree with them as documented. Major issues addressed: Pt reports that she slept awfully 2/2 CAMP and now being in a loud room. She states that her mood is good, fine. Denies any side effects to medications. Denies any SI/HI or paranoia. At this time, pt is declining resumption of ECT. Sends mixed messages about the events over S aturday. Aware of IEA. BP 148/83 Pulse (!) 107 Temp 37.7 ??C (99.9 ??F) (Oral) Resp 12 Ht 162.6 cm (5' 4.02) Wt54.4 kg (120 lb) SpO2 97% BMI 20.59 kg/m?? Plan: Bipolar disorder, mixed; behavioral disturbance 2/2 TBI. Behaviors continue to be erratic andunpredictable. Continue with the IEA. If she is able to demonstrate consistent appropriate behaviorand articulate a consistent goal/plan for 24+ hours I will consider lifting the IEA. Continue with Vyvanse and lamotrigine. I certify that the patient requires: [X] inpatient care for psychiatric treatment, that could be reasonably expected to improve the patient's condition and/or diagnostic study. * Austin Yu MD - 01/11/2019 1:13 PM EST Psychiatry Inpatient - Progress Note 01/11/2019 ID:??Isaura Schafer Adan??is a 68 y.o.??female??admitted on 01/01/2019??for worsening mood symptoms suicidal ideations and homicidal statements. ??Hospital day 6. ?? Diagnosis: Bipolar 1 disorder, mixed episode with symptoms of kee and irritability? Pertinent medical issues being addressed:??Traumatic Brain Injury 2 years ago impacting her mood Interval History: (1,1,4) Narrative: Painting water colors prior to this interview. Pleasant, calm, cooperative, and stated I'm here and I'd like to go home when I'm able to go home. She denied any suicidal or homicidal ideations. She denied any side effects from her medications. Also met with and explained the [facility] emergency admission process. Per nursing report - irritable yesterday, making multiple phone calls, yelling in the phone at people, refused prazosin last night Review of Systems: (0,1,2) CONST Denied sedation or problems with sleep CV RESP GI NEURO MS Denied pain PSYCH See above Other Suicide Risk Factors on Day of Admission: Enduring Factors: history of substance abuse, chronic mental health problems, poor emotional regulation and impulsive or aggressive tendenancies ?? Dynamic Factors: depressive symptoms, TBI ?? Protective Factors: family and community support Physical Exam: (1,6,9) Vitals (24hr Range): Temp: [37.1 ??C (98.8 ??F)] Resp: [16] Heart Rate: [107] BP: (151)/(94) SpO2: [97 %] Patient Vitals for the past 168 hrs: Weight 01/11/19 1100 54.4 kg (120 lb) Musculoskeletal System: normal gait and balance, ambulates independently, no atrophy, no abnormal movements and no stiffness Mental Status Exam: ? Appearance:??age appropriate and dressed appropriately ? Behavior:??pleasant, calm, cooperative, engaged in the interview ? Speech:??normal pitch, normal volume, normal rate and normal rhythm ? Language:??fluent in montenegrin ? Mood:??I'm here. ? Affect:??calm and cooperative and mood-congruent ? Thought Process:??circumstantial ? Associations:??intact without loose associations or flight of ideas ? Thought Content:??denied homicidal ideation and denied suicidal ideation ? Perception:??denied auditory hallucinations denied visual hallucinations ? Orientation:??grossly intact by interview ? Attention/Concentration:??able to sustain focus for most of the interview ? Cognition:??grossly intact by interview ? Memory:??recent and remote memory grossly intact ? Fund of Knowledge:??appropriate for age and level of functioning ? Insight:??limited ? Judgment:??limited Boaz Suicide Risk Scale (most recently completed): Wish to be : Have you wished you were or wished you could go to sleep and not wake up?: No(01/02/19899) Suicidal Thoughts: Have you had any actual thoughts of killing yourself?: No (01/11/19819) Suicidal Thoughts with Method (without Specific Plan or Intent to Act): Have you been thinking about how you might do this?: Yes (01/01/192123) Suicidal Intent (without Specific Plan): Have you had these thoughts and had some intention of acting on them?: Yes (01/01/192123) Suicidal Intent with Specific Plan: Have you started to work out or worked out the details of how to kill yourself? Do you intend to carry out this plan?: Yes (01/01/192123) Suicide Behavior Question: Have you ever done anything, started to do anything, or prepared to do anything to end your life?: No (01/11/19 7737) Current Medications: Scheduled: ??? prazosin 1 mg Oral Nightly ??? pantoprazole 20 mg Oral Daily ??? lisdexamfetamine 30 mg Oral Daily ??? lamoTRIgine 25 mg Oral Daily ??? levothyroxine 50 mcg Oral QAM ??? clonazePAM 1 mg Oral Nightly PRN: hydrOXYzine, ondansetron, ibuprofen, traMADol, acetaminophen, senna, melatonin, hydrOXYzine, psyllium, risperiDONE, nicotine polacrilex, clonazePAM, sodium chloride, propranolol Labs: Psychiatry Labs Preg: No results found for: HCGQUAL, HCGQUANT Heme: No results found for: WBC, HGB, HCT, PLATELET, MCV, NEUTROABS No results found for: HA1C, SEDRATE Chem: No results found for: NA, K, CL, CO2, BUN, GLUCOSE, GLUCFASTING No results found for: CALCIUM, MAGNESIUM, PHOS LFTs: No results found for: ALT, AST, GGT, ALKPHOS, BILITOT, AMMONIA Coags: No results found for: PTT, PT, INR Thyroid: No results found for: TSH, [id number], TT4 Lipids and HgbA1C: No results found for: CHLPL, HDL, CHOLHDL, LDLCHOL, LDLDIRECT, TRIG No results found for: HA1C Vit Lvls: No results found for: [id number], SFOLATE UA: No results found for: GLUCOSEU, KETONESUA, PROTEINUADIP, BLOODUADIP, LEUKOESTERUA, NITRATEUA, WBCUA (May not represent most recent UA results. See eD-H labs for more details.) Tox: No results found for: ETHANOL, ACTMNPHEN, SALICYLATE, LEAD No results found for: UDAUSCREEN Rx Lvls: No results found for: LITHIUM, CARBAMAZEPIN, VALPROATE, LAMOTRIGINE, CLOZAPINE Assessment: (including Suicide Risk Assessment) Isaura Arellano??is a 68 y.o.??female??admitted on 01/01/2019??for worsening mood symptoms and suicidal ideations and homicidal ideations directed toward her just prior to admission??in the setting of stopping her Abilify, sertraline and topiramate??over the past year. ?? Suicide Risk Assessment: Patient with elevated risk compared to the general population given statements about suicide and homicide on admission, alcohol use, medication noncompliance, and history of traumatic brain injury. Her risk is likely not back at her baseline given her refusal to meaningfully engage in treatment and accept the medication recommendations of her treatment team, she remains irritable and impulsive with little to no insight into her current situation Current Working Primary Diagnosis:??Bipolar I disorder, mixed episode with irritability and symptoms of kee, labile mood Plan: ?? #??Bipolar I disorder, current episode mixed and history of TBI -Continue vyvanse 30 mg po q day per treatment team for TBI symptoms -Continue lamotrigine for mood stabilization -Continue clonazepam 1 mg po q bedtime for irritability and agitation -Continue prazosin 1 mg po qhs for PTSD symptoms -Patient had involuntary emergency admission paperwork completed and faxed to [facility] on 01/10/2019 given she was demanding to leave the hospital and meets criteria for involuntary emergency admission and is still likely a danger to herself or her at this time given her poor insight and minimal engagement in recommended treatment ?? #??Anxiety and Agitation -Risperidone M-tab (2 mg twice daily PRN) for agitation/anxiety -Propanolol 10mg PO BID PRN anxiety -Continue clonazepam (1 mg nightly); clonazepa 0.5 mg BID prn anxiety -Prazosin 1 mg QHS for nightmares ?? #??Alcohol use disorder -No longer at acute risk of withdrawal ?? # hypothyroidism -Continue Synthroid 50 mcg QAM ?? # GERD -Continue protonix 20 mg QAM ?? #??Nicotine use disorder ? -Continue Nicotine gum ? Disposition: Patient currently on involuntary emergency admission given her demanding to leave and treatment team recommendations she is still a danger to herself and others at this time given her minimal engagement in treatment, impulsivity, and statements about suicide / homicide on admission to psychiatry. ?? #PRNS: ?Sleep: melatonin, hydrozyxine ?Anxiety: risperidone as above, hydroxyzine, clonazepam ?Pain: tylenol, tramodol (home med) ?Agitation: risperidone as above?? # Disposition: - After stabilization, patient expected to return home . Outpatient Care: Provider Name Date Contacted By Treatment Team Current Mental Health Prescriber None Current Therapist None PCP Aurelia Bobby MD 01/09 Patient Instruction/Education Provided: Patient provided verbal instructions during rounds regarding the treatment plan. I have reviewed and agree with the multidisciplinary treatment plan. I certify that the patient requires inpatient care for psychiatric treatment for safety, stabilization, and any other therapeutic intervention that could conceivably improve the patient's condition, including medication management, group psychotherapy, establishing adequate outpatient care, and/or diagnostic study. Signed By: Austin Yu MD 01/11/2019 * Neymar Moya MS - 01/11/2019 12:03 PM EST Inpatient Daily Group Note Group: Goals: Reviewed rules and expectations, daily schedule, patients' progress and goals and read daily text. Notes: Patient invited, declined. Painting in her room. Plan to invite to groups on unit. NEYMAR MOYA MS 01/11/2019 * Austin Yu MD - 01/10/2019 4:10 PM EST Psychiatry Inpatient - Progress Note 01/10/2019 ID:??Isaura Schafer Adan??is a 68 y.o.??female??admitted on 01/01/2019??for worsening mood symptoms suicidal ideations and homicidal statements. ??Hospital day 6. ?? Diagnosis: Bipolar 1 disorder, mixed episode with symptoms of kee and irritability? Pertinent medical issues being addressed:??Traumatic Brain Injury 2 years ago impacting her mood Interval History: (1,1,4) Narrative: Patient was irritable and angry today stating I'm leaving. I'm not a danger to myselfand I'm not a danger to others. She denied any side effects from her current medication regimen. After discussing the options of staying and receiving treatment or seeking an involuntary admission the patient became more angry and began calling people on the phone. Per nursing report - irritable, e xtreme mood swings, rated depression and anxiety 0 (0-none, 10-worst), social with staff overnight,clogged toilet by flushing paper towels down the toilet and engineering had to be called and the room was closed until further notice due to inability to immediately repair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 this morning. She is sad to hear that we are not starting ECT today. Discuss her mood lability and SI/HI. Describes both [id number] including the thoughts of wanting to murder her . - still declining any mood stabilizers Review of Systems: (0,1,2) CONST no recent weight change and no fever CV no angina and no palpitations RESP no shortness of breath and no cough GI no nausea and no vomiting NEURO no headache, no numbness and no tremors MS no pain PSYCH See above Other Suicide Risk Factors on Day of Admission: Enduring Factors: history of substance abuse, chronic mental health problems, poor emotional regulation and impulsive or aggressive tendenancies Dynamic Factors: depressive symptoms Protective Factors: family and community support Access to Firearms: No Physical Exam: (1,6,9) Vitals (24hr Range): Temp: -- Resp: -- Heart Rate: -- BP: -- SpO2: -- Patient Vitals for the past 168 hrs: Weight 01/04/19 0700 53.6 kg (118 lb 3.2 oz) 01/01/192058 53.5 kg (118 lb) Musculoskeletal System: normal gait and balance, ambulates independently, no atrophy, no abnormal movements and no stiffness Mental Status Exam: ?? Appearance: age appropriate and casually dressed ?? Behavior: cooperative with the interview and good eye contact ?? Speech: normal pitch, normal volume, normal rate and normal rhythm ?? Language: fluent in montenegrin ?? Mood: doing ok ?? Affect: full, irritable and labile ?? Thought Process: linear and logical ?? Associations: intact ?? Thought Content: denied homicidal ideation, denied suicidal ideation, no bizarre delusions and no paranoid delusions ?? Perception: denied auditory hallucinations denied visual hallucinations ?? Orientation: grossly intact by interview ?? Attention/Concentration: able to sustain focus ?? Cognition: grossly intact by interview ?? Memory: recent and remote memory grossly intact ?? Fund of Knowledge: appropriate for age and level of functioning ?? Insight: limited ?? Judgment: limited Boaz Suicide Risk Scale (most recently completed): Wish to be : Have you wished you were or wished you could go to sleep and not wake up?: No(01/02/19 09) Suicidal Thoughts: Have you had any actual thoughts of killing yourself?: No (01/05/192014) Suicidal Thoughts with Method (without Specific Plan or Intent to Act): Have you been thinking about how you might do this?: Yes (01/01/192123) Suicidal Intent (without Specific Plan): Have you had these thoughts and had some intention of acting on them?: Yes (01/01/192123) Suicidal Intent with Specific Plan: Have you started to work out or worked out the details of how to kill yourself? Do you intend to carry out this plan?: Yes (01/01/192123) Suicide Behavior Question: Have you ever done anything, started to do anything, or prepared to do anything to end your life?: No (01/05/192014) Current Medications: Scheduled: ??? levothyroxine 50 mcg Oral QAM ??? clonazePAM 1 mg Oral Nightly PRN: melatonin, hydrOXYzine, psyllium, risperiDONE, LORazepam, nicotine polacrilex, clonazePAM, acetaminophen, sodium chloride, propranolol Labs: Psychiatry Labs Preg: No results found for: HCGQUAL, HCGQUANT Heme: Lab Results Component Value Date WBC 7.3 01/01/2019 HGB 15.7 (H) 01/01/2019 HCT 46.0 (H) 01/01/2019 PLATELET 243 01/01/2019 MCV 94.1 01/01/2019 NEUTROABS 3.73 01/01/2019 No results found for: HA1C, SEDRATE Chem: Lab Results Component Value Date NA 138 01/01/2019 K 4.1 01/01/2019 CL 99 01/01/2019 CO2 26 01/01/2019 BUN 16 01/01/2019 GLUCOSE 107 01/01/2019 Lab Results Component Value Date CALCIUM 9.8 01/01/2019 LFTs: Lab Results Component Value Date ALT 11 01/01/2019 AST 16 01/01/2019 ALKPHOS 81 01/01/2019 BILITOT 0.6 01/01/2019 Coags: No results found for: PTT, PT, INR Thyroid: Lab Results Component Value Date TSH 1.83 01/01/2019 Lipids and HgbA1C: No results found for: CHLPL, HDL, CHOLHDL, LDLCHOL, LDLDIRECT, TRIG No results found for: HA1C Vit Lvls: No results found for: [id number], SFOLATE UA: No results found for: GLUCOSEU, KETONESUA, PROTEINUADIP, BLOODUADIP, LEUKOESTERUA, NITRATEUA, WBCUA (May not represent most recent UA results. See eD-H labs for more details.) Tox: Lab Results Component Value Date ETHANOL <100 01/01/2019 ACTMNPHEN <5 (L) 01/01/2019 SALICYLATE <20 01/01/2019 No results found for: UDAUSCREEN Rx Lvls: No results found for: LITHIUM, CARBAMAZEPIN, VALPROATE, LAMOTRIGINE, CLOZAPINE Assessment: (including Suicide Risk Assessment) Isaura Arellano is a 68 y.o. female admitted on 01/01/2019 for worsening mood symptoms and suicidalideations and today endorsed HI directed toward her just prior to admission in the setting of stopping her Abilify, sertraline and topiramate. Declining medications and requesting ECT. 01/06/2019:Pt continues to exhibit a lot of lability including improvements in mood that coexist with suicidal and homicidal thoughts. Outside of the window for alcohol withdrawal related mood symptoms. Still feeling that a mixed manic episode is most reasonable diagnosis at this point. Pursuing ECT. ?? Current Working Primary Diagnosis: Bipolar I disorder, mixed episode with irritability and symptomsof kee, labile mood Plan: #??Bipolar I disorder, current episode mixed ? Refusing med changes??and/or trials ? Schedule for ECT tomorrow ?? #??Anxiety ? D/c lorazepam in anticipation for ECT ? Risperidone M-tab (2 mg twice daily PRN) for agitation/anxiety ? Propanolol 10mg PO BID PRN anxiety ? Continue clonazepam (1 mg nightly); hold evenings before ECT ?? #??Alcohol use disorder ? No longer on AAS # hypothyroidism * Synthroid 50 mcg QAM ?? #??Nicotine use disorder ? Nicotine gum ?? Preventative/Prophylaxis: ?? Pneumovax and Influenza immunizations to be given as needed. ?? DVT prophylaxis not indicated: patient is at low risk for VTE and is fully ambulatory. ?? Disposition: - anticipated d/c date pending ECT course. #PRNS: Sleep: melatonin, hydrozyxine Anxiety: risperidone as above, hydroxyzine Pain: tylenol Agitation: risperidone as above Outpatient Care: Provider Name Date Contacted By Treatment Team Current Mental Health Prescriber None Current Therapist None PCP Aurelia Bobby MD Patient Instruction/Education Provided: Patient provided verbal instructions during rounds regarding the treatment plan. I have reviewed and agree with the multidisciplinary treatment plan. I certify that the patient requires inpatient care for psychiatric treatment for safety, stabilization, and any other therapeutic intervention that could conceivably improve the patient's condition, including medication management, group psychotherapy, establishing adequate outpatient care, and/or diagnostic study. Signed By: Lore Ryan MD 01/06/2019 * Barby Reveles RN - 01/05/2019 1:27 PM EST Call to patient's to provide contact information. He is supportive of ECT and feels bad that he cannot be present if treatments begin during the winter storm. Patient's reports that they live one hour away when the weather is good. We discussed the [facility] [place] E[place] teaching video and he plans to watch it later today. * Neymar Moya MS - 01/05/2019 12:47 PM EST Inpatient Daily Group Note Group: Goals: Reviewed rules and expectations, daily schedule, patients' progress and goals and read daily text. ?? Attendance: Present Behavior: Quiet Therapeutic Work Observed: Moderate Mood: Calm Notes: Patient has goal to stay focused, avoid trigger, be kind. Plan to invite to groups if she can stay in behavioral control and stay for time lock expert. NEYMAR MOYA MS 01/05/2019 Patient attended the following activities: ____Walk __x__Workshop facilitated by visual aid expert with the goal to write and/or make a bravo card for yourself. ____Pet visit Additional pertinent information: * Desiree Ruiz - 01/05/2019 12:05 PM EST Psychiatry Inpatient - Progress Note 01/05/2019 ID: Isaura Arellano is a 68 y.o. female admitted on 01/01/2019 for worsening mood symptoms and sI. Hospital day 4. Diagnosis: Major depressive disorder, Bipolar 1 disorder, mixed episode with symptoms of kee and irritability Pertinent medical issues being addressed: None Interval History: (1,1,4) Narrative: Nursing reports patient's anxiety and depression both 5/10. She slept awfully overnight with no quantification of time sleeping. She denies SI or HI on rounds, but endorsed SI to the nursing staff overnight. In addition, she endorsed SI prior to admission as well as HI towards her I thought about suffocating him with a pillow while he slept. Patient was described by nursingas acting out (throwing the phone, closing a door with nurse's hand in the way, not responding to directions) and behavioral expectations on the unit were reviewed with her on rounds, with discussionof need to call security or IEA if her behavior causes others or herself to be unsafe; she agreed to safe behaviors. Patient reiterated that she has tried every medication and has not felt them to be helpful, she is interested in ECT which will be pursued for her while she is inpatient. Because of h/o alcohol use that was significant, AAS was measured and her scoring is quite low; this will be discontinued today. Review of Systems: (0,1,2) CONST no recent weight change and no fever CV no angina and no palpitations RESP no shortness of breath and no cough GI no nausea and no vomiting NEURO no headache, no numbness and no tremors MS no pain PSYCH See above Other Suicide Risk Factors on Day of Admission: Enduring Factors: history of substance abuse, chronic mental health problems, poor emotional regulation and impulsive or aggressive tendenancies Dynamic Factors: depressive symptoms Protective Factors: family and community support Access to Firearms: No Physical Exam: (1,6,9) Vitals (24hr Range): Temp: [36.6 ??C (97.9 ??F)-37.1 ??C (98.8 ??F)] Resp: [18-20] Heart Rate: [78-99] BP: (129-159)/(74-100) SpO2: [95 %-100 %] Patient Vitals for the past 168 hrs: Weight 01/04/19 0700 53.6 kg (118 lb 3.2 oz) 01/01/19 2059 53.5 kg (118 lb) Musculoskeletal System: normal gait and balance, ambulates independently, no atrophy, no abnormal movements and no stiffness Mental Status Exam: ?? Appearance: age appropriate and casually dressed ?? Behavior: cooperative with the interview and good eye contact ?? Speech: normal pitch, normal volume, normal rate and normal rhythm ?? Language: fluent in montenegrin ?? Mood: doing ok ?? Affect: full, irritable and labile ?? Thought Process: linear and logical ?? Associations: intact ?? Thought Content: denied homicidal ideation, denied suicidal ideation, no bizarre delusions and no paranoid delusions ?? Perception: denied auditory hallucinations denied visual hallucinations ?? Orientation: grossly intact by interview ?? Attention/Concentration: able to sustain focus ?? Cognition: grossly intact by interview ?? Memory: recent and remote memory grossly intact ?? Fund of Knowledge: appropriate for age and level of functioning ?? Insight: limited ?? Judgment: limited Boaz Suicide Risk Scale (most recently completed): Wish to be : Have you wished you were or wished you could go to sleep and not wake up?: No(01/02/19899) Suicidal Thoughts: Have you had any actual thoughts of killing yourself?: No (01/04/191924) Suicidal Thoughts with Method (without Specific Plan or Intent to Act): Have you been thinking about how you might do this?: Yes (01/01/192123) Suicidal Intent (without Specific Plan): Have you had these thoughts and had some intention of acting on them?: Yes (01/01/192123) Suicidal Intent with Specific Plan: Have you started to work out or worked out the details of how to kill yourself? Do you intend to carry out this plan?: Yes (01/01/192123) Suicide Behavior Question: Have you ever done anything, started to do anything, or prepared to do anything to end your life?: No (01/04/191924) Current Medications: Scheduled: ??? levothyroxine 50 mcg Oral QAM ??? clonazePAM 1 mg Oral Nightly PRN: psyllium, risperiDONE, LORazepam, nicotine polacrilex, clonazePAM, acetaminophen, sodium chloride, propranolol Labs: Psychiatry Labs Preg: No results found for: HCGQUAL, HCGQUANT Heme: Lab Results Component Value Date WBC 7.3 01/01/2019 HGB 15.7 (H) 01/01/2019 HCT 46.0 (H) 01/01/2019 PLATELET 243 01/01/2019 MCV 94.1 01/01/2019 NEUTROABS 3.73 01/01/2019 No results found for: HA1C, SEDRATE Chem: Lab Results Component Value Date NA 138 01/01/2019 K 4.1 01/01/2019 CL 99 01/01/2019 CO2 26 01/01/2019 BUN 16 01/01/2019 GLUCOSE 107 01/01/2019 Lab Results Component Value Date CALCIUM 9.8 01/01/2019 LFTs: Lab Results Component Value Date ALT 11 01/01/2019 AST 16 01/01/2019 ALKPHOS 81 01/01/2019 BILITOT 0.6 01/01/2019 Coags: No results found for: PTT, PT, INR Thyroid: Lab Results Component Value Date TSH 1.83 01/01/2019 Lipids and HgbA1C: No results found for: CHLPL, HDL, CHOLHDL, LDLCHOL, LDLDIRECT, TRIG No results found for: HA1C Vit Lvls: No results found for: [id number], SFOLATE UA: No results found for: GLUCOSEU, KETONESUA, PROTEINUADIP, BLOODUADIP, LEUKOESTERUA, NITRATEUA, WBCUA (May not represent most recent UA results. See eD-H labs for more details.) Tox: Lab Results Component Value Date ETHANOL <100 01/01/2019 ACTMNPHEN <5 (L) 01/01/2019 SALICYLATE <20 01/01/2019 No results found for: UDAUSCREEN Rx Lvls: No results found for: LITHIUM, CARBAMAZEPIN, VALPROATE, LAMOTRIGINE, CLOZAPINE Assessment: (including Suicide Risk Assessment) Isaura Arellano is a 68 y.o. female admitted on 01/01/2019 for worsening mood symptoms and suicidalideations and today endorsed HI directed toward her just prior to admission. Patient deniesSI and HI on rounds. The patient would likely benefit from a mood stabilizer but is not interested in medication therapy at this time. With continued periods of irritability which has improved with PRN lorazepam. ECT has been discussed with her outpatient therapist in the past, and again on this admission with the treatment team (with her in attendance) and the patient would like to pursue ECT at this time. ?? Current Working Primary Diagnosis: Bipolar I disorder, mixed episode with irritability and symptomsof kee, labile mood Plan: #??Bipolar I disorder, current episode mixed ? Patient wishing to initiate acute course of ECT; will obtain ECT consent on 01/05 ? Please review MRI prior to approval for ECT (apparently collected in 10/2018); history of a lacunar infarct. ? Refusing med changes??and/or trials ? Consider acute course of ECT following review MRI ?? #??Anxiety ? Lorazepam (2 mg twice daily PRN) for agitation/anxiety ? Risperidone M-tab (2 mg twice daily PRN) for agitation/anxiety ? Discontinue clonazepam (0.5 mg BID PRN) ? Propanolol 10mg PO BID PRN anxiety ? Continue clonazepam (1 mg nightly) ?? #??Alcohol use disorder ? AAS, scores low will DC today # hypothyroidism * Synthroid 50 mcg QAM ?? #??Nicotine use disorder ? Nicotine gum ?? Preventative/Prophylaxis: ?? Pneumovax and Influenza immunizations to be given as needed. ?? DVT prophylaxis not indicated: patient is at low risk for VTE and is fully ambulatory. ?? Disposition: Estimated length of time needed for hospital stay is??3-5??days. Proposed post-discharge care will likely include??establishing follow up community care prior to discharge. #PRNS: Sleep: melatonin, hydrozyxine Anxiety: ativan, clonazepam, risperidone as above Pain: tylenol Agitation: ativan, clonazepam, risperidone as above Outpatient Care: Provider Name Date Contacted By Treatment Team Current Mental Health Prescriber None Current Therapist None PCP Aurelia Bobby MD Patient Instruction/Education Provided: Patient provided verbal instructions during rounds regarding the treatment plan. I have reviewed and agree with the multidisciplinary treatment plan. I certify that the patient requires inpatient care for psychiatric treatment for safety, stabilization, and any other therapeutic intervention that could conceivably improve the patient's condition, including medication management, group psychotherapy, establishing adequate outpatient care, and/or diagnostic study. Signed By: Desiree Ruiz MD 01/05/2019 Associated attestation - Lore Ryan MD - 01/05/2019 12:42 PM EST I have seen the patient and reviewed the resident's above history and I agree with the details as written.?The assessment and plan were formulated in discussion with me and I agree with them as documented. ?? Major issues addressed: Pt reports feeling anxious and sad. Discusses plans to put a pillow over her 's head but I am pretty sure I would not do that. I would like to not have that opportunity again. Thoughts of SI present for a while. Continues to refuse medications. ?? Continues to have incredibly labile mood while on the unit. Is interested in ECT. ?? Discussed patient's behaviors on the unit and the need for security or involuntary status if she cannot keep things safe on the unit. ?? BP 129/85 (BP Location (NBP): Left arm, Patient Position: Sitting) Pulse 91 Temp 37 ??C (98.6 ??F) (Oral) Resp 18 Ht 162.6 cm (5' 4.02) Wt 53.6 kg (118 lb 3.2 oz) SpO2 95% BMI 20.28 kg/m? Plan: Bipolar disorder, mixed state. Mood lability continues to be an issues and has compromised the safety of staff at times over the weekend. Consent for ECT today as pt is declining all medications (had been on Abilify, sertraline and topomax for many years prior to d/c over the course of last year). Still endorsing HI toward and SI. ?? I certify that the patient requires: [X] inpatient care for psychiatric treatment, that could be reasonably expected to improve the patient's condition and/or diagnostic study. * Neymar Moya MS - 01/04/2019 12:38 PM EST Inpatient Daily Group Note Group: Goals: Reviewed rules and expectations, daily schedule, patients' progress and goals and read daily text. Attendance: Late Behavior: Conversational Therapeutic Work Observed: Moderate Mood: Calm Notes: Patient has goal to accept thing for what they are and be kind. Plan to invite to groups if in continued behavioral control. NEYMAR MOYA MS 01/04/2019 Inpatient Daily Group Note Group: Open discussion with family and friends: Check-in and discussion how to change your responseto difficult emotions and stay healthy instead of reacting impulsively and/or avoiding the emotion. Attendance: Present Behavior: Relevant Therapeutic Work Observed: Moderate Mood: Calm Notes: Patient engaged appropriately and shared how she tries to cope with her anger by removing herself temporarily, observe and then proceed. NEYMAR MOYA MS 01/04/2019 * Sung Muñoz DO - 01/04/2019 10:00 AM EST Psychiatry Inpatient - Progress Note 01/04/2019 ID: Isaura Arellano is a 68 y.o. female admitted on 01/01/2019 for worsening mood symptoms and suicidal ideations.. Hospital day 3. Current Working Primary Diagnosis: Bipolar I disorder, mixed episode Interval History: (1,1,4) Depression 05/04 Anxiety 06/03 States she if feeling much better. Less irritable today. Reports that she felt blown off by her physician last evening. Focusing on remaining mindful and staying away from people who make her feel negative. States she is very interested in ECT for her depression and mixed manic features. Educatedpatient and on side effects and process of starting ECT and she is hoping to discuss further with the team on 01/05. Review of Systems: (0,1,2) CONST Denies fever or chills CV RESP Denies SOB, cough GI NEURO PSYCH See above. Physical Exam: (1,6,9) Vitals (24hr Range): Temp: [36.4 ??C (97.5 ??F)-36.8 ??C (98.2 ??F)] Resp: [20] Heart Rate: [56-89] BP: (134-164)/(96-113) SpO2: [100 %] Patient Vitals for the past 168 hrs: Weight 01/04/19 0700 53.6 kg (118 lb 3.2 oz) 01/01/19 2059 53.5 kg (118 lb) Musculoskeletal System: normal gait and balance, ambulates independently, no atrophy and no abnormal movements Mental Status Exam: Ambulates independently. No tics or tremors noted. Age appropriate, casually dressed, good eye contact. Calm and cooperative. Attentive to the interview. Relates well. Speech reg r/r/prosody. Mood Doing much better! and affect is pleasant however labile and at times tearful. Thoughts are l/l/gd and associations are intact. Denies SI/HI. Denies AH/VH or paranoia. Language without echolalia or clanging. Memory grossly intact. Alert and oriented x 4. I/J: fair Current Medications: Scheduled: ??? levothyroxine 50 mcg Oral QAM ??? clonazePAM 1 mg Oral Nightly PRN: psyllium, risperiDONE, LORazepam, nicotine polacrilex, LORazepam OR LORazepam OR LORazepam, clonazePAM, acetaminophen, sodium chloride, propranolol Labs: Last 24 Hours: No results found for this or any previous visit (from the past 24 hour(s)). Psychiatry Labs: Preg: No results found for: HCGQUAL, HCGQUANT Heme: Lab Results Component Value Date WBC 7.3 01/01/2019 HGB 15.7 (H) 01/01/2019 HCT 46.0 (H) 01/01/2019 PLATELET 243 01/01/2019 MCV 94.1 01/01/2019 NEUTROABS 3.73 01/01/2019 No results found for: HA1C, SEDRATE Chem: Lab Results Component Value Date NA 138 01/01/2019 K 4.1 01/01/2019 CL 99 01/01/2019 CO2 26 01/01/2019 BUN 16 01/01/2019 GLUCOSE 107 01/01/2019 Lab Results Component Value Date CALCIUM 9.8 01/01/2019 LFTs: Lab Results Component Value Date ALT 11 01/01/2019 AST 16 01/01/2019 ALKPHOS 81 01/01/2019 BILITOT 0.6 01/01/2019 Coags: No results found for: PTT, PT, INR Thyroid: Lab Results Component Value Date TSH 1.83 01/01/2019 Lipids and HgbA1C: No results found for: CHLPL, HDL, CHOLHDL, LDLCHOL, LDLDIRECT, TRIG No results found for: HA1C Vit Lvls: No results found for: [id number], SFOLATE UA: No results found for: GLUCOSEU, KETONESUA, PROTEINUADIP, BLOODUADIP, LEUKOESTERUA, NITRATEUA, WBCUA (May not represent most recent UA results. See eD-H labs for more details.) Tox: Lab Results Component Value Date ETHANOL <100 01/01/2019 ACTMNPHEN <5 (L) 01/01/2019 SALICYLATE <20 01/01/2019 No results found for: UDAUSCREEN Rx Lvls: No results found for: LITHIUM, CARBAMAZEPIN, VALPROATE, LAMOTRIGINE, CLOZAPINE Assessment: Isaura Arellano is a 68 y.o. female admitted on 01/01/2019 for worsening mood symptoms and suicidalideations. With continued periods of irritability which has improved with PRN lorazepam. Apparentlynot wanting to take clonazepam currently. Not receiving PRN risperidone. We discussed ECT treatment, side effects and indications with both the patient and her , Rob. Patient would like to pursue ECT with the primary team however full review of her head MRI (approximately in 10/2018) may be necessary given her report of abnormal findings (lacunar infarct) on this prior study. Current Working Primary Diagnosis: Bipolar I disorder, mixed episode Clinical Global Impression Severity of illness: Considering your total clinical experience with this particular population, how mentally ill is the patient at this time? 6 = Severely ill Global improvement: Rate total improvement compared to condition at admission, how much has she changed? No Change Plan: # Bipolar I disorder, current episode mixed ? Patient wishing to initiate acute course of ECT; consider obtaining ECT consent on 01/05 ? Please review MRI prior to approval for ECT (apparently collected in 10/2018); history of a lacunar infarct. ? Refusing med changes and/or trials ? Collateral will be helpful for diagnostic clarification ? Consider acute course of ECT following review MRI ?? # Anxiety ? Lorazepam (2 mg twice daily PRN) for agitation/anxiety ? Risperidone M-tab (2 mg twice daily PRN) for agitation/anxiety ? Discontinue clonazepam (0.5 mg BID PRN) ? Propanolol 10mg PO BID PRN anxiety ? Continue clonazepam (1 mg nightly) ?? # Alcohol use disorder ? AAS ?? # Nicotine use disorder ? Nicotine gum ?? Preventative/Prophylaxis: ?? Pneumovax and Influenza immunizations to be given as needed. ?? DVT prophylaxis not indicated: patient is at low risk for VTE and is fully ambulatory. ?? Disposition: Estimated length of time needed for hospital stay is 3-5 days. Proposed post-discharge care will likely include establishing follow up community care prior to discharge. Additional Information: Reasons for continued hospitalization: Warrants ongoing inpatient admission for safety, stabilization, and any other therapeutic intervention that could conceivably improve the patient's condition (including medication management, group psychotherapy, establishing adequate outpatient care). Patient Instruction/Education Provided: Patient provided verbal instructions during rounds regarding the treatment plan. I have reviewed and agree with the multidisciplinary treatment plan. I certify that the patient requires [x] inpatient care for psychiatric treatment that could reasonably be expected to improve the patient's condition and/or diagnostic study. Signed By: Sung Muñoz DO 01/04/2019 * Salima Aguila - 01/03/2019 12:38 PM EST Inpatient Daily Group Note Group: Goals Attendance: Present Behavior: Conversational Therapeutic Work Observed: Moderate Mood: Calm Notes: Reviewed being ready for group and water only in group room. Pt.'s goal for today is: Initially stated she did not have a goal, subsequently stated meet with and find out what the hell is going on. After group talked with journalists and other writers about being more irritable and upset that items of comfort were taken from her after another staff stated it was ok to have. SALIMA AGUILA 01/03/2019 Patient attended the following activities: ____Walk _X___Workshop ____Pet visit Additional pertinent information: Social and pleasant * Sung Muñoz DO - 01/03/2019 8:55 AM EST Psychiatry Inpatient - Progress Note 01/03/2019 ID: Isaura Arellano is a 68 y.o. female admitted on 01/01/2019 for worsening mood symptoms and suicidal ideations.. Hospital day 2. Current Working Primary Diagnosis: Bipolar I disorder, mixed episode Interval History: (1,1,4) Depression 3/10 Anxiety 3/ Sleep 4.75 hours Wishing not to make medication changes nor trial new meds. Given propranolol and clonazepam for anxiety. Currently on AAS. Expressing SI at time of admission. ECT is currently being discussed given reluctance to consider medications. Recommended by week team to IEA should she wish to leave. Very irritable by the fact that staff will not let her have her paint brushes. Willing to take a PRN clonazepam for irritability and stay in her room. Review of Systems: (0,1,2) CONST Denies fever or chills CV RESP Denies SOB, cough GI NEURO PSYCH See above. Physical Exam: (1,6,9) Vitals (24hr Range): Temp: [36.8 ??C (98.2 ??F)-37 ??C (98.6 ??F)] Resp: [18-20] Heart Rate: [68-119] BP: (140-165)/(85-101) SpO2: [98 %] Patient Vitals for the past 168 hrs: Weight 01/01/192058 53.5 kg (118 lb) Musculoskeletal System: normal gait and balance, ambulates independently, no atrophy and no abnormal movements Mental Status Exam: Ambulates independently. No tics or tremors noted. Age appropriate, casually dressed, good eye contact. Calm and cooperative. Attentive to the interview. Relates well. Speech reg r/r/prosody. Mood They are trying to take my paint brushes! and affect is irritable, agitated, and mood congruent. Thoughts are l/l/gd and associations are intact. Denies SI/HI. Denies AH/VH or paranoia. Language without echolalia or clanging. Memory grossly intact. Alert and oriented x 4. I/J: fair Current Medications: Scheduled: ??? levothyroxine 50 mcg Oral QAM ??? clonazePAM 1 mg Oral Nightly PRN: nicotine polacrilex, LORazepam OR LORazepam OR LORazepam, clonazePAM, acetaminophen, sodium chloride, propranolol Labs: Last 24 Hours: No results found for this or any previous visit (from the past 24 hour(s)). Psychiatry Labs: Preg: No results found for: HCGQUAL, HCGQUANT Heme: Lab Results Component Value Date WBC 7.3 01/01/2019 HGB 15.7 (H) 01/01/2019 HCT 46.0 (H) 01/01/2019 PLATELET 243 01/01/2019 MCV 94.1 01/01/2019 NEUTROABS 3.73 01/01/2019 No results found for: HA1C, SEDRATE Chem: Lab Results Component Value Date NA 138 01/01/2019 K 4.1 01/01/2019 CL 99 01/01/2019 CO2 26 01/01/2019 BUN 16 01/01/2019 GLUCOSE 107 01/01/2019 Lab Results Component Value Date CALCIUM 9.8 01/01/2019 LFTs: Lab Results Component Value Date ALT 11 01/01/2019 AST 16 01/01/2019 ALKPHOS 81 01/01/2019 BILITOT 0.6 01/01/2019 Coags: No results found for: PTT, PT, INR Thyroid: Lab Results Component Value Date TSH 1.83 01/01/2019 Lipids and HgbA1C: No results found for: CHLPL, HDL, CHOLHDL, LDLCHOL, LDLDIRECT, TRIG No results found for: HA1C Vit Lvls: No results found for: [id number], SFOLATE UA: No results found for: GLUCOSEU, KETONESUA, PROTEINUADIP, BLOODUADIP, LEUKOESTERUA, NITRATEUA, WBCUA (May not represent most recent UA results. See eD-H labs for more details.) Tox: Lab Results Component Value Date ETHANOL <100 01/01/2019 ACTMNPHEN <5 (L) 01/01/2019 SALICYLATE <20 01/01/2019 No results found for: UDAUSCREEN Rx Lvls: No results found for: LITHIUM, CARBAMAZEPIN, VALPROATE, LAMOTRIGINE, CLOZAPINE Assessment: Isaura Arellano is a 68 y.o. female admitted on 01/01/2019 for worsening mood symptoms and suicidalideations.. Acutely agitated at time of interview. Patient with poor sleep, labile mood, agitated behavior and currently refusing medication considerations. Is however willing to consider ECT following further evaluation of her past head MRI. Has a history of lacunar infarcts per her report. Med consideration would likely be valproic acid given her impulsivity, hx of brain trauma and mixed features. At this point, given her overall suicide risk, she would require IEA should she wish to leave the hospital. Current Working Primary Diagnosis: Bipolar I disorder, mixed episode Clinical Global Impression Severity of illness: Considering your total clinical experience with this particular population, how mentally ill is the patient at this time? 6 = Severely ill Global improvement: Rate total improvement compared to condition at admission, how much has she changed? No Change Plan: # Bipolar I disorder, current episode mixed ? Refusing med changes and/or trials ? Collateral will be helpful for diagnostic clarification ? Consider acute course of ECT following review MRI ?? # Anxiety ? Propanolol 10mg PO BID PRN anxiety ? Klonopin 1mg PO Q HS ?? # Alcohol use disorder ? AAS ?? # Nicotine use disorder ? Nicotine gum ?? Preventative/Prophylaxis: ?? Pneumovax and Influenza immunizations to be given as needed. ?? DVT prophylaxis not indicated: patient is at low risk for VTE and is fully ambulatory. ?? Disposition: Estimated length of time needed for hospital stay is 3-5 days. Proposed post-discharge care will likely include establishing follow up community care prior to discharge. Additional Information: Reasons for continued hospitalization: Warrants ongoing inpatient admission for safety, stabilization, and any other therapeutic intervention that could conceivably improve the patient's condition (including medication management, group psychotherapy, establishing adequate outpatient care). Patient Instruction/Education Provided: Patient provided verbal instructions during rounds regarding the treatment plan. I have reviewed and agree with the multidisciplinary treatment plan. I certify that the patient requires [x] inpatient care for psychiatric treatment that could reasonably be expected to improve the patient's condition and/or diagnostic study. Signed By: Sung Muñoz DO 01/03/2019 * Ava Schwarz RN - 01/03/2019 5:45 AM EST Pt awake around 0400. Upset that she cannot keep her metal water bottle in her room. She requested to take Klonopin. PRN dose given at 0410. Pt stayed in her room most of the time when OOR. Goes to common area, stomping loudly. Constricted affect, frequent profane language. Refused to have VSS taken. Later she napped. * Jean Pierre Torres - 01/02/2019 8:23 PM EST Spoke with , Gagan Arellano, on the phone and then followed up with both he and Isaura whenhe arrived to visit. He states she has been having periods of irritability and rage worsening since August. She had periods of irritability with intermittent periods of euthymia at baseline prior to august but much less severe. He says while she had been talking about SI since August, she never took the steps she had the day she was admitted. He would not feel comfortable with her returning home if nothing has changed, as he would have safety concerns not for me, but for her. 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 She says she has been followed by a neurologist in [facility]. Additionally, they mentioned additional history of a lacunar stroke in 2014. Based on this new past medical history, I let them know it would be more appropriate to review the imaging and outside records as it may influence the current plan. This was discussed with Dr. Muñoz who agreed with plan to hold off on pursuing ECT clearance, today.While her sx are still consistent with BPAD mixed kee, TBI sequelae plus cerebral vascular insultmay better explain why sx are emerging more recently. This is not an absolute contraindication to ECT, I would prefer to discuss with ECT team and pts outpatient neurologist. H MICHAEL TORRES MD * Anahi Hunter RN - 01/02/2019 2:17 PM EST Talk to patient about care plan. Patient requested to become a DNR. Does not want to be a full code. Discussed that she had access to a large sum of money. If you could get a vehicle without her , she would disappear. No one would be able to find her. She stated that her two dogs would be well taken care of. Her children were better off without her. When discussing that her children would miss her, she stated that they would not and to ask her daughter. When ask if she had a plan to commit suicide. She stated, Not right away. Stated that she does not want to be around people. She hates people. Wants to be alone. The unit is too loud. She hates being here. * Salima Aguila - 01/02/2019 1:25 PM EST Inpatient Daily Group Note Group: Goals Attendance: Present Behavior: Involved Therapeutic Work Observed: None Mood: Calm Notes: Reviewed being prepared for group; water only and no bathroom available in group room. Discussed safety checks in rooms by staff. Pt.'s goal for today is: Pt. pulled from group to see treatment team before stating goal for the day. Will be invited to all off unit groups once off RTU status. SALIMA AGUILA 01/02/2019 Inpatient Daily Group Note Group: CBT Facilitated discussion about the connection between thinking/feeling/behaving and how these create the lens or mind set that all experiences are filtered through. Discussed how addictive behaviors are fueled when the ???lens?? is closed. Provided examples of how this works and discussed the importance of awareness of where one's lens is and how this impacts a persons interpretations. Attendance: Present Behavior: Quiet and Attentive Therapeutic Work Observed: Moderate Mood: Calm Notes: Pt was quiet though attentive. Observed to be taking notes throughout, asked questions related to content of discussion. SALIMA PEREZ Mayuri 01/02/2019 Patient attended the following activities: ____Walk __X__Workshop ____Pet visit Additional pertinent information: Social and engaged in conversations around music and life events. * Elizabeth St RN - 01/02/2019 6:58 AM EST Patient has been very irritable on most contacts. Uses profanities quite freely. This journalists and other writers spoke with patient this morning as it was spreading into the common area. She is redirectable. Is quite revved up over our unit rules, ie no coffee or TV before 0600, no dental floss in her bathroom, rottenpillows, etc. She is very hyperactive this morning. She scored a 7 on the AAS at 0018 and a 3 at 070 0. She is on scheduled 2 mg of ativan every 8 hours. Her BP and HR are slightly elevated this morning, less than on admission. See flowsheet. documented in this encounter H&P Notes * Yolie Luu MD - 01/01/2019 10:55 PM EST Images from the original note were not included. Psychiatry Inpatient Admission - History & Physical Note 01/01/2019 Name: Isaura Arellano Age: 68 y.o. Gender: Female Marital Status: Children: 2 kids, 36yo and 42 yo Employment: retired Residence: [address] [place] [phone] Outpatient Providers: (include location) Current Mental Health Prescriber: PCP Current Therapist: none PCP: Aurelia Bobby MD Chief Complaint: 68 y.o. Female presents to [facility] [place] with worsening mood symptoms and suicidal ideations. Interval History: (1,1,4) Narrative: Per Elsie Chung's note 01/01/19: Patient reports a long history of depression. She has been experiencing episodes lasting 3-4 days at a time, about once a month of increased mood symptoms. Symptoms include depressed mood, long frequent tearful episodes, decreased self care, anhedonia, worthlessness, hopelessness and low energy. She will isolate and not leave the home. She reports suicidal ideation during these episodes. Last night she had SI with plan to hang herself. She reports she googled how to make a noose and then proceeded to make one. When asked if she put it around her neck she reports you make it around your neck. Last night she tore the house apart looking for her 's gun, a 22 caliber rifle with thoughts of shooting herself. She denies history of suicide attempt. She also reports during these episodes she is easily agitated, annoyed and irrational. She will accuse her of having a girlfriend and believes people are talking about her. She will feel that she is evil and that her childrenand dogs do not love her. Last night she also had thoughts of killing her by suffocating him with a pillow. This is not the first time she has had the thought/ threatened to do it. ?? She has been on multiple antidepressant medications over the last 30+ years. She has been in and out of therapy for many years but stopped in August of last year when she was completely weaned off of her psychiatric medications. She chose to stop the medications because she did not like how they made her feel emotionless. Patient verified above information. Isaura reports that last night as she was googling how to make a noose, she was directed to a suicide hotline, which she did call. She did not find it helpful as she and the clothing trades workers had a verbal altercation. Currently, the patient safe in the unit. She feels comfortable reaching out to nursing staff regarding suicidal ideations. Denies current suicidal and homicidal ideations. Continues to endorse that no one likes her, but is more amenable that it is her opinion. Reports poor sleep quality and naps during the day. Reports she has intense irritability about oncea month which occur during longer naps in the afternoon. Reports sad mood, guilt, concentration, appetite, low energy. Reports good energy, interests. She reports she is a picky eater. Denies PTSD, OCD, ADHD symptoms. Reports anxiety about everything. Propanolol and klonopin help with anxiety. She reports she takes Klonopin 1 mg at bed time. Reports that she drinks between 3-4 drinks (beer/wine/liquor) a day, but might have been consuming more this week. Psychiatric Review of Systems: Sustained Depressed Mood: Yes Sustained Elevated Mood: No Sustained Irritable Mood: Yes Flashbacks: No Nightmares: No Panic Attacks: Yes Chronic Worry: No Psychotic Symptoms: Yes, parnaoia Obsessions/Compulsions: No Violence: No Self Harm: No Suicide Risk Factors on Day of Admission: Enduring Factors: history of substance abuse, limited coping skills, poor emotional regulation and 3-4 alcoholic drinks per day for @15 years, limited social supports, history of trauma Dynamic Factors: depressive symptoms, access to firearms, rehearsal of a suicide plan/Preparatory behavior and sense of hopelessness Protective Factors: supportive Access to Firearms: Yes, agrees to remove the gun from the home Other Psychiatric History: Prior diagnoses: Depression depression - first mood episode 32yo Past hospitalization and location: denies Suicide attempt details: denies Past psychiatric medications: (include dose, length of use, response, reason for stopping) all antidepressants every SSRI, effexor, welbutrin Reports bad reaction to effexor - hypomania Lamictal and abilify - weight gain and more depressed Tricyclics Substance Use History/Treatment: Reports she does not smoke cigarettes, but does chew nicotine gum daily Alcohol 3-4 drinks per day (wine, beer, hard liquor) Denies all other substance use Audit-C Tobacco Use Status (Tob-1) 1. How often do you have a drink containing alcohol? 4 or more times a week - (4pt) 2. How many standard drinks containing alcohol do you have a typical day? 3 or 4 - (1pt) 3. How often do you have six or more drinks on one occasion? Monthly - (2pt) Total Score: 7 In men, a score of 4 or more is considered positive, optimal for identifying hazardous drinking or active alcohol use disorder. In women, a score of 3 or more is considered positive (same as above). Tobacco Use Status (Tob-1): Have you used tobacco products in the past 30 days? Yes nicotine gum (If yes, list type of tobacco, volume used and time frame e.g. # of years). Tobacco Use Treatment (Tob-2 - Medication) Would you like a medication to help with tobacco cessation? Yes nicotine gum Tobacco Use Treatment (Tob-2 - Counseling) Would you like counseling for help with quitting tobacco? No Outpatient Medications: Current Facility-Administered Medications on File Prior to Encounter Medication Dose Route Frequency Provider Last Rate Last Dose ??? [COMPLETED] clonazePAM (KlonoPIN) tablet 0.5 mg 0.5 mg Oral Once Brian Singleton MD 0.5mg at 01/01/19 7935 Current Outpatient Medications on File Prior to Encounter Medication Sig Dispense Refill ??? cholecalciferol, Vitamin D3, (VITAMIN D) 1,000 [...] needed for Wheezing. Use with spacer ??? clonazePAM (KLONOPIN) 0.5 mg Tablet Take 0.5 mg by mouth 3 times daily as needed for Anxiety. ??? dextroamphetamine-amphetamine (ADDERALL) 10 mg Tablet Take by mouth 2 times daily. One tablet in the AM and half tablet in the afternoon ??? aspirin 81 mg Tablet, Delayed Release (E.C.) Take 81 mg by mouth daily. Reported on 03/19/2017 Allergies: No Known Allergies Problem List: Patient Active Problem List Diagnosis Code ??? Non-small cell carcinoma of left lung, stage 1 C34.92 ??? Abnormal auditory perception H93.299 ??? Colon polyp K63.5 ??? Depression F32.9 ??? Herpes simplex virus (HSV) infection B00.9 ??? Hypertension I10 ??? Lacunar infarction I63.81 Past Medical/Surgical History: Past Medical History: Diagnosis Date ??? Non-small cell carcinoma of left lung, stage 1 08/09/2014 Moderately differentiated adenocarcinoma, 1.8 cm, no LVI, positive visceral pleural invasion, no involved nodes (0/8). Past Surgical History: Procedure Laterality Date ??? PRO UP GI ENDOSCOPY, REMV TUMOR, SNARE 10/01/2018 EGD, W REMOVAL TUMOR/POLYPS/LESIONS BY SNARE TECHNIQUE performed by Viola Prieto MD at [facility] ENDOSCOPY ??? PRO UP GI ENDOSCOPY, REMV TUMOR, SNARE N/A 10/29/2018 EGD, W REMOVAL TUMOR/POLYPS/LESIONS BY SNARE TECHNIQUE performed by Viola Prieto MD at [facility] ENDOSCOPY ??? PRO UPPER GI ENDOSCOPY, BIOPSY N/A 10/01/2018 EGD WITH BIOPSY (WRVU 2.49) performed by Viola Prieto MD at [facility] ENDOSCOPY ??? PRO UPPER GI ENDOSCOPY, BIOPSY N/A 10/29/2018 EGD WITH BIOPSY (WRVU 2.49) performed by Viola Prieto MD at [facility] ENDOSCOPY Family Medical/Psychiatric History: No one dae discuss this in her family, but believes there is. Brother -depression No family history of suicide Social History: Resides with , dogs, and cat. Two adult children. 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 applicable) No polyuria and No dysuria MSK No muscle weakness and No myalgias SKIN No rash NEURO no headache, no numbness and no weakness PSYCH See above ENDO No diaphoresis HEME/LYMPH No easy bleeding ALL/IMMUNO No symptoms of Sinustis and No symptoms of Environmental Allergies Physical Exam: Vitals Admission (Current) from 01/01/2019 in [facility] Weight 53.5 kg (118 lb) Height 162.6 cm (5' 4.02) BSA (Calculated - sq m) 1.55 sq meters BMI (Calculated) 20.24 Temp 36.8 ??C (98.2 ??F) Temp src Oral Heart Rate 102 (Abnormal) Resp 18 BP 182/112 (Abnormal) Patient Position Sitting SpO2 99 % Musculoskeletal System: normal gait and balance, ambulates independently and no abnormal movements (See also: MSE: Behavior) GEN No acute distress HEAD Normocephalic EYES PERRL ENT Moist mucous membranes and Normal dentition NECK No LAD CV RRR PULM Clear to auscultation bilaterally ABD Soft, NT and ND EXTR No C/C/E and Good peripheral pulses NEURO Grossly nonfocal SKIN No rashes noted Mental Status Exam: ?? Appearance: age appropriate and casually dressed ?? Behavior: cooperative with the interview and good eye contact ?? Speech: normal pitch, normal volume, normal rate and normal rhythm ?? Language: fluent in montenegrin and with paraphasic errors ?? Mood: I don't feel anything ?? Affect: full and mood-incongruent ?? Thought Process: linear and logical ?? Associations: intact ?? Thought Content: denied homicidal ideation, denied suicidal ideation, no bizarre delusions and reports she believes her daughter does not like her ?? Perception: denied auditory hallucinations denied visual hallucinations ?? Orientation: grossly intact by interview ?? Attention/Concentration: able to sustain focus and able to resist distraction ?? Cognition: grossly intact by interview ?? Memory: recent and remote memory grossly intact ?? Fund of Knowledge: appropriate for age and level of functioning ?? Insight: fair ?? Judgment: fair Wish to be : Have you wished you were or wished you could go to sleep and not wake up?: Yes (01/01/192123) Suicidal Thoughts: Have you had any actual thoughts of killing yourself?: Yes (01/01/192123) Suicidal Thoughts with Method (without Specific Plan or Intent to Act): Have you been thinking about how you might do this?: Yes (01/01/192123) Suicidal Intent (without Specific Plan): Have you had these thoughts and had some intention of acting on them?: Yes (01/01/192123) Suicidal Intent with Specific Plan: Have you started to work out or worked out the details of how to kill yourself? Do you intend to carry out this plan?: Yes (01/01/192123) Suicide Behavior Question: Have you ever done anything, started to do anything, or prepared to do anything to end your life?: No (01/01/192123) Labs: Psychiatry Labs: Preg: No results found for: HCGQUAL, HCGQUANT Heme: Lab Results Component Value Date WBC 7.3 01/01/2019 HGB 15.7 (H) 01/01/2019 HCT 46.0 (H) 01/01/2019 PLATELET 243 01/01/2019 MCV 94.1 01/01/2019 NEUTROABS 3.73 01/01/2019 No results found for: HA1C, SEDRATE Chem: Lab Results Component Value Date NA 138 01/01/2019 K 4.1 01/01/2019 CL 99 01/01/2019 CO2 26 01/01/2019 BUN 16 01/01/2019 GLUCOSE 107 01/01/2019 Lab Results Component Value Date CALCIUM 9.8 01/01/2019 LFTs: Lab Results Component Value Date ALT 11 01/01/2019 AST 16 01/01/2019 ALKPHOS 81 01/01/2019 BILITOT 0.6 01/01/2019 Coags: No results found for: PTT, PT, INR Thyroid: Lab Results Component Value Date TSH 1.83 01/01/2019 Lipids and HgbA1C: No results found for: CHLPL, HDL, CHOLHDL, LDLCHOL, LDLDIRECT, TRIG No results found for: HA1C Vit Lvls: No results found for: [id number], SFOLATE UA: No results found for: GLUCOSEU, KETONESUA, PROTEINUADIP, BLOODUADIP, LEUKOESTERUA, NITRATEUA, WBCUA (May not represent most recent UA results. See eD-H labs for more details.) Tox: Lab Results Component Value Date ETHANOL <100 01/01/2019 ACTMNPHEN <5 (L) 01/01/2019 SALICYLATE <20 01/01/2019 No results found for: UDAUSCREEN Rx Lvls: No results found for: LITHIUM, CARBAMAZEPIN, VALPROATE, LAMOTRIGINE, CLOZAPINE Assessment: (including Suicide Risk Assessment) Isaura Arellano is a 68 y.o. Female who presents to [facility] [place] with suicidal ideations with plan to hang herself. Isaura has a long history of depression, anxiety, alcohol use, and possible hypomanic episodes. Isaura this evening was reporting her main issue as anxiety. She has been taking klonopin 1mgat bed time with intermittent extra 0.25mg dose in the middle of the night when she wakes up. Whileit is clear that Isaura identifies anxiety as her main issue, there is concern regarding her alcohol use disorder and possible withdrawal symptoms. Her blood pressure has been unusually elevated thisevening, and she reports that this happens sometimes when she is admitted in hospitals and denies diagnosis of hypertension. Isaura believes that she drank more than usual this week, but does not believe she has ever been in withdrawal and denies history of seizures. It is likely that Isaura is withdrawing from alcohol and she is being observed while on a AAS. Isaura also endorses current depressive symptoms with intermittent irritability. The episodes she describes do not meet criteria for classification as manic episodes, but unclear if they are hypomania or behavioral. Isaura reports varying degrees of suspicion and paranoia regarding many people including her family and staff. At thispoint, it continues to be unclear if Isaura is suffering from MDD, substance induced mood disorder,bipolar 2 disorder, and/or personality disorder traits along with anxiety. Isaura was irritable this evening and having issues with staff and was initially guarded on interview. Would benefit from further collateral from , who is reported as supportive and more familiar with her history, as well as from PCP who prescribes her klonopin and propanolol. Furthermore, Isaura reports a history of poor response to many medications and as a result now is refusing all other medication, aside from klonopin, and has requested to be considered for ECT. Current Suicide Assessment: Patient's suicide risk is elevated given worsening depression, recent substance use, paranoia, and recent suicide ideations with plan and preparatory behaviors. Patient's baseline risk is elevated from that of the general population given chronic mental health problems, poor emotional regulation, impulsive tendencies, history of substance use, and history of previous suicidal ideations. Risk mitigated by q15min checks, medication optimization, engagement in therapeutic milieu, and participation in psychotherapeutic skill-building. Diagnosis: <principal problem not specified> Plan: ?? Admit patient to Psychiatry Care Unit ?? Activity: Restrict to Unit (RTU) # Depressive symptoms/paranoia/irritability ?? Refusing med changes and/or trials ?? Collateral will be helpful for diagnostic clarification # Anxiety ?? Propanolol 10mg PO BID PRN anxiety ?? Klonopin 1mg PO Q HS # Alcohol use disorder ?? AAS # Nicotine use disorder ?? Nicotine gum Preventative/Prophylaxis: ?? Pneumovax and Influenza immunizations to be given as needed. ?? DVT prophylaxis not indicated: patient is at low risk for VTE and is fully ambulatory. Disposition: Estimated length of time needed for hospital stay is 3-5 days. Proposed post-discharge care will likely include establishing follow up community care prior to discharge. Team will contact outpatient prescriber and therapist for collateral information and continuity of care. Discussed Advanced Directives and Code Status. The patient wishes to be Full Code. I certify that inpatient psychiatric hospital admission is medically necessary and the patient requires inpatient care for psychiatric treatment for safety, stabilization, and any other therapeutic intervention that could conceivably improve the patient???s condition (including medication management, group psychotherapy, establishing adequate outpatient care) and/or diagnostic study. Signed By: Yolie Luu MD 01/01/2019 Associated attestation - Lore Ryan MD - 01/02/2019 8:53 PM EST I have seen the patient and reviewed the resident's above history and I agree with the details as written. The assessment and plan were formulated in discussion with me and I agree with them as documented. Major issues addressed: Pt presents to the team smiling engaged with the team. When asked what brought her into the hospital pt states I need to start from the beginning. Along h/o antidepressants after PPD (pt was afraid she was going to hurt her child and tried to give her child away to her father) with her last child. Last November 2017 pt reports being tired of not feeling anything and didn't want to be chubby anymore. Tapered off sertraline off course of 10 months. Ever since off sertraline pt feels agitated irritable and this fluctuates from situation to situation. Then states thatshe can be fine for weeks then have a few days to a week with these features. Gets tearful I know w hat happens is crazy and I can't stop it! Described mental and physical anguish and started thinking about SI. Started researching how to make a noose. Doesn't know if she would have followed through with it. Has serious thoughts of wanting to kill herself and states that it had never gotten that bad. Does have insight as to why she is irritable and agitated right now but states I tried to make teawith hot shower water. Does not want to take any medications I am doing some herbal things and they are okay but don't have the same half-life as pharmaceutical company offers. States that her adult life her drinks range from 1 to 4 drinks a day. Goal for hospitalization: - understand this diagnosis BP (!) 144/95 (BP Location (NBP): Right arm, Patient Position: Sitting) Comment: informed nurse Pulse 95 Temp 37.1 ??C (98.8 ??F) (Oral) Resp 18 Ht 162.6 cm (5' 4.02) Wt 53.5 kg (118 lb) SpO2 97% BMI 20.24 kg/m?? Plan: Bipolar disorder, mixed episode. Clearly manic and needs a mood stabilizer. Currently refusing medications and making statements about leaving, getting a lot of money off her credit cards and eventually killing herself. Will discuss ECT with her given her reluctance to medications. Would IEA at this point if she were to leave. I certify that the patient requires: [X] inpatient care for psychiatric treatment, that could be reasonably expected to improve the patient's condition and/or diagnostic study. documented in this encounter Procedure Notes * Jagdish Balderas MD - 01/08/2019 7:21 AM ESTProcedure(s): ECT ECT SUBSEQUENT TREATMENT NOTE Patient received bitemporal ECT in the PACU. Course type: acute Treatment #2 The primary diagnosis is Bipolar mixed episode. Interval history: The patient c/o severe CAMP, yesterday after ECT. We agreed to try Toradol. No flowsheet data found. No flowsheet data found. Patient was attached to monitoring equipment. The anesthesia team administered the following medications: methohexital 60 mg succinylcholine 60 mg Toradol 15 mg ECT parameters: Bitemporal / 31 second motor seizure 56-62 second EEG seizure (Obscured by artifact) Patient was stabilized and appeared to tolerate the procedure. Complications: none Changes/recommendations for next treatment: none Next treatment date: TBD Route note to: * Nadja Be MD - 01/07/2019 7:58 AM ESTProcedure(s): ECT ECT TITRATION NOTE Patient received bitemporal ECT titration in the PACU. The primary diagnosis is Bipolar disorder, mixed episode. Relevant history: Patient is presenting for ECT this morning; we reviewed the procedure and possible adverse effects. Will plan for bitemporal ECT titration this morning. Notes that she is feeling a bit scared but agreeable to proceed with treatment. No flowsheet data found. Patient was attached to monitoring equipment. The anesthesia team administered the following medications: Methohexital 60 mg succinylcholine 60 mg After adequate sedation and relaxation were achieved, patient received ECT using a MECTA device at the following parameters: 1/0.75/800 0 sec EEG seizure 12/14/1.5/800 0 sec EEG seizure 12/14//800 90 sec EEG seizure, 54 sec motor seizure Patient was stabilized and appeared to tolerate the procedure. Complications: None Changes/recommendations/parameters for next treatment: Bitemporal / Next treatment date: TBD documented in this encounter Miscellaneous Notes * Plan of Care - Brigid Murguia RN - 01/14/2019 9:40 AM EST Problem: Patient Care Overview Goal: Plan of Care Review Outcome: Ongoing (Interventions Implemented as Appropriate) 01/13/192049 Coping/Psychosocial Plan Of Care Reviewed With patient Plan of Care Review Progress progress toward functional goals as expected OUTCOME EVALUATION NOTE: OUTCOME SUMMARY: Pt has not had any angry outbursts yesterday or this am. She declines depression, anxiety, pain, SI, VH/AH, and kee. Social and interactive on the unit. Some mild sarcasm and irritability at times,but easily redirectable. Declining Protonix. Using Tramadol and Klonopin PRN. Eating and taking fluids well. PLAN MOVING FORWARD: meds as ordered, group therapy, discharge planning- ? [facility]. INDIVIDUALIZED FALL PREVENTION INTERVENTIONS: Patient-specific fall risk factors per assessment: [current deficits]: none Assistance [level of assistance required for transfers and ambulation]: independent Supervision [direct monitoring required during toileting and ADLs]: Esc to group Surveillance [continuous indirect monitoring]: q 15 minute checks Patient-specific fall prevention interventions for sensory deficits provided, if applicable: [X] No CPG GOAL OUTCOME EVALUATION: Pt calmer. Goal: Individualization & Mutuality Outcome: Ongoing (Interventions Implemented as Appropriate) 01/12/19113001/13/19918 Individualization Patient Specific Preferences -- pt. angry and irritable on contact Patient Specific Goals -- no goal set Patient Specific Interventions -- support and reassurance Mutuality/Individual Preferences What Anxieties, Fears or Concerns Do You Have About Your Health or Care? No one is listening to me-its unbeleivable -- What Questions Do You Have About Your Health or Care? they dont listen to me -- What Information Would Help Us Give You More Personalized Care? I need my clonazepam -- Goal: Fall Prevention-Safe Patient Handling Outcome: Ongoing (Interventions Implemented as Appropriate) 01/13/192049 Restraint Interventions Safety Promotion/Fall Prevention fall prevention program maintained;nonskid shoes/slippers when outof bed Activity Activity Type up ad lizzette Activity Assistance Provided independent Assistive Device Utilized none Positioning Body Position independent Daily Care Interventions Self-Care Promotion independence encouraged;BADL personal routines maintained Calero Fall Risk History of Falling 0 Secondary Diagnosis 15 Ambulatory Aids 0 Intravenous Therapy/Heparin/Saline Lock 0 Gait/Transferring 0 Mental Status 0 Score 15 OTHER Calero Fall Risk Low Goal: Infection Control Outcome: Ongoing (Interventions Implemented as Appropriate) 01/13/192049 Coping Strategies Supportive Measures active listening utilized;decision-making supported;positive reinforcement provided;self-care encouraged;verbalization of feelings encouraged Safety Interventions Isolation Precautions standard precautions maintained Infection Prevention environmental surveillance performed;equipment surfaces disinfected;rest/sleeppromoted;single patient room provided Goal: Discharge Needs Assessment Outcome: Ongoing (Interventions Implemented as Appropriate) 01/12/19 1131 01/13/192049 Discharge Needs Assessment Concerns To Be Addressed -- coping/stress concerns;compliance issue concerns;decision making concerns;substance/tobacco abuse/use concerns;suicidal concerns Readmission Within The Last 30 Days -- no previous admission in last 30 days Provider Choice List(s) Given -- no Community Agency Name(s) [facility] -- Equipment Needed After Discharge -- none Discharge Facility/Level Of Care Needs -- independent living facility Current Discharge Risk -- abuse (physical, emotional, sexual, negligence);cognitively impaired;psychiatric illness Discharge Disposition -- still a patient Current Health Outpatient/Agency/Support Group Needs -- psychiatric facility (specify) Anticipated Changes Related to Illness -- none Activity/Self Care Review of Systems Equipment Currently Used at Home -- none Living Environment Transportation Available -- none Goal: Interdisciplinary Rounds/Family Conf Outcome: Ongoing (Interventions Implemented as Appropriate) 01/14/19 0930 Interdisciplinary Rounds/Family Conf Participants onsite case manager;nursing;patient;physician Problem: Coping, Compromised Individual (Adult,Obstetrics,Pediatric) Goal: Effective Coping Patient will demonstrate the desired outcomes by discharge/transition of care. Outcome: Ongoing (Interventions Implemented as Appropriate) 01/13/192049 Coping, Compromised Individual (Adult,Obstetrics,Pediatric) Effective Coping making progress toward outcome * Plan of Care - Giovanny Bob RN - 01/13/2019 8:59 PM EST Problem: Patient Care Overview Goal: Plan of Care Review 01/13/192049 Coping/Psychosocial Plan Of Care Reviewed With patient Plan of Care Review Progress progress toward functional goals as expected OUTCOME EVALUATION NOTE: OUTCOME SUMMARY: Pt denies depression and anxiety. Pt reports burning in her chest. Pt denies SI and AVH. Pt did nothave a BM today, and agrees to contact staff if she is having unsafe thoughts. PLAN MOVING FORWARD: Continue to monitor, drug counselor and encourage. Medications administered as prescribed and needed. INDIVIDUALIZED FALL PREVENTION INTERVENTIONS: Patient-specific fall risk factors per assessment: [current deficits]: Fall prevention program maintained. Non-skid socks worn on unit. Assistance [level of assistance required for transfers and ambulation]: Independent Supervision [direct monitoring required during toileting and ADLs]: Independent Surveillance [continuous indirect monitoring]: Q 15 min Patient-specific fall prevention interventions for sensory deficits provided, if applicable: Pt is a low fall risk. CPG GOAL OUTCOME EVALUATION: Goal: Fall Prevention-Safe Patient Handling Outcome: Ongoing (Interventions Implemented as Appropriate) 01/13/192049 Restraint Interventions Safety Promotion/Fall Prevention fall prevention program maintained;nonskid shoes/slippers when outof bed Activity Activity Type up ad lizzette Activity Assistance Provided independent Assistive Device Utilized none Positioning Body Position independent Daily Care Interventions Self-Care Promotion independence encouraged;BADL personal routines maintained Calero Fall Risk History of Falling 0 Secondary Diagnosis 15 Ambulatory Aids 0 Intravenous Therapy/Heparin/Saline Lock 0 Gait/Transferring 0 Mental Status 0 Score 15 OTHER Calero Fall Risk Low Goal: Infection Control Outcome: Ongoing (Interventions Implemented as Appropriate) 01/13/192049 Coping Strategies Supportive Measures active listening utilized;decision-making supported;positive reinforcement provided;self-care encouraged;verbalization of feelings encouraged Safety Interventions Isolation Precautions standard precautions maintained Infection Prevention environmental surveillance performed;equipment surfaces disinfected;rest/sleeppromoted;single patient room provided Goal: Discharge Needs Assessment Outcome: Ongoing (Interventions Implemented as Appropriate) 01/13/192049 Discharge Needs Assessment Concerns To Be Addressed coping/stress concerns;compliance issue concerns;decision making concerns;substance/tobacco abuse/use concerns;suicidal concerns Readmission Within The Last 30 Days no previous admission in last 30 days Provider Choice List(s) Given no Equipment Needed After Discharge none Discharge Facility/Level Of Care Needs independent living facility Current Discharge Risk abuse (physical, emotional, sexual, negligence);cognitively impaired;psychiatric illness Discharge Disposition still a patient Current Health Outpatient/Agency/Support Group Needs psychiatric facility (specify) Anticipated Changes Related to Illness none Activity/Self Care Review of Systems Equipment Currently Used at Home none Living Environment Transportation Available none Goal: Interdisciplinary Rounds/Family Conf Outcome: Ongoing (Interventions Implemented as Appropriate) 01/13/192049 Interdisciplinary Rounds/Family Conf Participants nursing;patient Problem: Coping, Compromised Individual (Adult,Obstetrics,Pediatric) Intervention: Support/Enhance Coping Strategies 01/13/192049 Coping Strategies Supportive Measures active listening utilized;decision-making supported;positive reinforcement provided;self-care encouraged;verbalization of feelings encouraged Family/Support System Care self-care encouraged Coping/Psychosocial Interventions Environmental Support calm environment promoted;personal routine supported;rest periods encouraged;environmental consistency promoted Goal: Effective Coping Patient will demonstrate the desired outcomes by discharge/transition of care. Outcome: Ongoing (Interventions Implemented as Appropriate) 01/13/192049 Coping, Compromised Individual (Adult,Obstetrics,Pediatric) Effective Coping making progress toward outcome * Plan of Care - Kim Espinoza RN - 01/13/2019 9:19 AM EST Problem: Patient Care Overview Goal: Interdisciplinary Rounds/Family Conf Outcome: Ongoing (Interventions Implemented as Appropriate) 01/13/19 09 Interdisciplinary Rounds/Family Conf Participants onsite case manager;nursing;patient;physician OUTCOME EVALUATION NOTE: OUTCOME SUMMARY: Patient was up early this am. She was on the phone yelling at her . She had also yelled at another patient on the unit. She is rude on contact, much sarcasm when asked. She denies thoughts of wanting to harm herself or others. She did calm down later and was apologetic to journalists and other writers for her behavior but again got angry and was disruptive. Patient has attended all groups today and has not had any disruptive behavior. She was visited by her and the visit went well. PLAN MOVING FORWARD: Monitor mood and behavior on the unit. IEA to [facility] when bed available. INDIVIDUALIZED FALL PREVENTION INTERVENTIONS: low Patient-specific fall risk factors per assessment: [current deficits]: Medical issue Assistance [level of assistance required for transfers and ambulation]: independent Supervision [direct monitoring required during toileting and ADLs]: independent Surveillance [continuous indirect monitoring]: 15 minute safety checks, RTU Patient-specific fall prevention interventions for sensory deficits provided, if applicable: [X] N/A CPG GOAL OUTCOME EVALUATION: * Plan of Care - Deandra Aguilar RN - 01/12/2019 9:43 PM EST Problem: Patient Care Overview Goal: Plan of Care Review Outcome: Ongoing (Interventions Implemented as Appropriate) 01/12/19 1131 01/12/19 2000 Coping/Psychosocial Plan Of Care Reviewed With -- patient Plan of Care Review Progress unable to show any progress toward functional goals -- OUTCOME EVALUATION NOTE: OUTCOME SUMMARY: Behavior: Patient irritable, tearful and labile, but also cooperative and redirectable. Expressed displeasure with the team of physicians, some of the other patients on the unit, some staff and her . Patient feels she has no control over her life, expresses fear of having other people makingdecisions for her especially if they have come to dislike her. Patient apologized often for her behavior and her worsening mood. Refused scheduled Prazosin. Expressed intense, worsening headache, explains it is d/t increased stress over IEA status and extreme noise and heightened activity of the unit and its present occupants. IEA #11, per nursing report. Rates: Anxiety 10, Headache 10 Denies: Depression, SI/HI, AVH Agrees to seek staff if feeling unsafe with self or others. Nutrition: No apparent problem observed or reported at this time. PRNs: 2028 Hydroxyzine 50mg, Trazodone 50mg, Tramadol 50mg Will continue to monitor. PLAN MOVING FORWARD: Promote healthy coping skills Groups Meet with team Ongoing discharge planning INDIVIDUALIZED FALL PREVENTION INTERVENTIONS: Patient-specific fall risk factors per assessment: [current deficits]: Low: medications Assistance [level of assistance required for transfers and ambulation]: Indep Supervision [direct monitoring required during toileting and ADLs]: Indep Surveillance [continuous indirect monitoring]: 15 min checks, RTU, environmental safety checks Goal: Individualization & Mutuality 01/12/19 113 Individualization Patient Specific Preferences call my Patient Specific Goals be discharged Patient Specific Interventions listen, reinforce the team's decision, talk to Mutuality/Individual Preferences What Anxieties, Fears or Concerns Do You Have About Your Health or Care? No one is listening to me-its unbeleivable What Questions Do You Have About Your Health or Care? they dont listen to me What Information Would Help Us Give You More Personalized Care? I need my clonazepam Goal: Fall Prevention-Safe Patient Handling 01/12/19 1131 01/12/191999 Restraint Interventions Safety Promotion/Fall Prevention -- safety round/check completed;nonskid shoes/slippers when out ofbed;fall prevention program maintained Activity Activity Type -- up ad lizzette Activity Assistance Provided -- independent Assistive Device Utilized -- none Positioning Body Position -- independent Daily Care Interventions Self-Care Promotion independence encouraged -- Calero Fall Risk History of Falling -- 0 Secondary Diagnosis -- 15 Ambulatory Aids -- 0 Intravenous Therapy/Heparin/Saline Lock -- 0 Gait/Transferring -- 0 Mental Status -- 0 Score -- 15 OTHER Calero Fall Risk -- Low Goal: Infection Control 01/12/191999 Coping Strategies Supportive Measures active listening utilized;counseling provided;decision- making supported;goal setting facilitated;positive reinforcement provided;problem solving facilitated;relaxation techniques promoted;self-care encouraged;self-reflection promoted;self-responsibility promoted;verbalization offeelings encouraged Safety Interventions Isolation Precautions standard precautions maintained Infection Prevention environmental surveillance performed;equipment surfaces disinfected;personal protective equipment utilized;rest/sleep promoted;single patient room provided Goal: Discharge Needs Assessment 01/12/19 1131 Discharge Needs Assessment Concerns To Be Addressed elopement concerns;discharge planning concerns;decision making concerns;compliance issue concerns;adjustment to diagnosis/illness concerns;cognitive/perceptual concerns;medication concerns;mental health concerns;substance/tobacco abuse/use concerns Readmission Within The Last 30 Days no previous admission in last 30 days Provider Choice List(s) Given no Community Agency Name(s) [facility] Equipment Needed After Discharge none Discharge Facility/Level Of Care Needs independent living facility Current Discharge Risk abuse (physical, emotional, sexual, negligence);cognitively impaired;psychiatric illness Discharge Disposition still a patient Current Health Outpatient/Agency/Support Group Needs psychiatric facility (specify) Anticipated Changes Related to Illness none Activity/Self Care Review of Systems Equipment Currently Used at Home none Living Environment Transportation Available none Goal: Interdisciplinary Rounds/Family Conf 01/12/19 6922 Interdisciplinary Rounds/Family Conf Participants patient;nursing Problem: Coping, Compromised Individual (Adult,Obstetrics,Pediatric) Intervention: Support/Enhance Coping Strategies 01/12/191999 Coping Strategies Complementary Therapy art therapy Supportive Measures active listening utilized;counseling provided;decision- making supported;goal setting facilitated;positive reinforcement provided;problem solving facilitated;relaxation techniques promoted;self-care encouraged;self-reflection promoted;self-responsibility promoted;verbalization offeelings encouraged Family/Support System Care self-care encouraged;support provided Coping/Psychosocial Interventions Environmental Support environmental consistency promoted;personal routine supported;rest periods encouraged Goal: Effective Coping Patient will demonstrate the desired outcomes by discharge/transition of care. 01/12/19 1131 Coping, Compromised Individual (Adult,Obstetrics,Pediatric) Effective Coping other (see comments) * Plan of Care - Concepcion Samuel RN - 01/12/2019 11:54 AM EST Problem: Patient Care Overview Goal: Plan of Care Review Outcome: Ongoing (Interventions Implemented as Appropriate) 01/12/19 1131 Coping/Psychosocial Plan Of Care Reviewed With patient;spouse Plan of Care Review Progress unable to show any progress toward functional goals OUTCOME EVALUATION NOTE: OUTCOME SUMMARY: Isarua labile, I have a h/a from [facility] and anxious about meeting with the team this am She was given her prn Clonazepam 0.5 mg at 075- anxiety more than 10 Encouraged distraction- yoga, art, shower, 4-4-4-4 breathing. Given her Ultram prn at 0830 for h/a- She has had 4 cups of coffee so far- Educated re caffeine and anxiety -unreceptive. 1000 here and thought there was to be a mtg with he and Isaura and the doctors- Explained the team's decision and he will return at 1630. Isaura crying off and on and epressed disbelief on several occasions. 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 Teary-eyed and blaming staff- redirected to focus on her and her feelings and to journal.She rated her dep as a 0 and anxiety as a 5/10. My irritability is at least a 7/10. She denies any SI or HI and agreed to seek me out if this changes. Remains on IEA list and RTU. PLAN MOVING FORWARD: Transfer to [facility] on list unknown at this time Support and redirect and reinforce and listen INDIVIDUALIZED FALL PREVENTION INTERVENTIONS: Patient-specific fall risk factors per assessment: [current deficits]: LFR Assistance [level of assistance required for transfers and ambulation]: n/a Supervision [direct monitoring required during toileting and ADLs]: n/a Surveillance [continuous indirect monitoring]: 15 min Patient-specific fall prevention interventions for sensory deficits provided, if applicable: Push fluids CPG GOAL OUTCOME EVALUATION: Goal: Individualization & Mutuality Outcome: Ongoing (Interventions Implemented as Appropriate) 01/12/19 113 Individualization Patient Specific Preferences call my Patient Specific Goals be discharged Patient Specific Interventions listen, reinforce the team's decision, talk to Mutuality/Individual Preferences What Anxieties, Fears or Concerns Do You Have About Your Health or Care? No one is listening to me-its unbeleivable What Questions Do You Have About Your Health or Care? they dont listen to me What Information Would Help Us Give You More Personalized Care? I need my clonazepam Goal: Fall Prevention-Safe Patient Handling Outcome: Ongoing (Interventions Implemented as Appropriate) 01/11/19202101/12/1982501/12/19 113 Restraint Interventions Safety Promotion/Fall Prevention -- -- safety round/check completed;nonskid shoes/slippers when outof bed;fall prevention program maintained Activity Activity Type up ad lizzette -- -- Activity Assistance Provided independent -- -- Assistive Device Utilized none -- -- Positioning Body Position -- -- independent Daily Care Interventions Self-Care Promotion -- -- independence encouraged Calero Fall Risk History of Falling -- -- 0 Secondary Diagnosis -- -- 15 Ambulatory Aids -- -- 0 Intravenous Therapy/Heparin/Saline Lock -- -- 0 Gait/Transferring -- -- 0 Mental Status -- 0 -- Score -- 15 -- OTHER Calero Fall Risk -- Low -- Goal: Infection Control Outcome: Ongoing (Interventions Implemented as Appropriate) 01/12/19 113 Coping Strategies Supportive Measures active listening utilized;self-care encouraged;self- reflection promoted;counseling provided Safety Interventions Isolation Precautions standard precautions maintained Infection Prevention single patient room provided Goal: Discharge Needs Assessment Outcome: Ongoing (Interventions Implemented as Appropriate) 01/12/19 113 Discharge Needs Assessment Concerns To Be Addressed elopement concerns;discharge planning concerns;decision making concerns;compliance issue concerns;adjustment to diagnosis/illness concerns;cognitive/perceptual concerns;medication concerns;mental health concerns;substance/tobacco abuse/use concerns Readmission Within The Last 30 Days no previous admission in last 30 days Provider Choice List(s) Given no [facility] Equipment Needed After Discharge none Discharge Facility/Level Of Care Needs independent living facility Current Discharge Risk abuse (physical, emotional, sexual, negligence);cognitively impaired;psychiatric illness Discharge Disposition still a patient Current Health Outpatient/Agency/Support Group Needs psychiatric facility (specify) Anticipated Changes Related to Illness none Activity/Self Care Review of Systems Equipment Currently Used at Home none Living Environment Transportation Available none Goal: Interdisciplinary Rounds/Family Conf Outcome: Ongoing (Interventions Implemented as Appropriate) 01/12/19 1131 Interdisciplinary Rounds/Family Conf Participants onsite case manager;social work/services;physician;patient;nursing Problem: Coping, Compromised Individual (Adult,Obstetrics,Pediatric) Intervention: Support/Enhance Coping Strategies 01/11/19202101/12/19 0826 Coping Strategies Complementary Therapy -- art therapy;other (see comments) (yoga) Supportive Measures -- active listening utilized;counseling provided;goal setting facilitated;positive reinforcement provided;problem solving facilitated;relaxation techniques promoted;self-care encouraged;self-reflection promoted;verbalization of feelings encouraged Family/Support System Care self-care encouraged;support provided -- Coping/Psychosocial Interventions Environmental Support calm environment promoted;comfort object encouraged;distractions minimized;environmental consistency promoted;personal routine supported;rest periods encouraged -- Goal: Effective Coping Patient will demonstrate the desired outcomes by discharge/transition of care. Outcome: Ongoing (Interventions Implemented as Appropriate) 01/12/19 1131 Coping, Compromised Individual (Adult,Obstetrics,Pediatric) Effective Coping other (see comments) * Plan of Care - Deandra Aguilar RN - 01/11/2019 11:11 PM EST Problem: Patient Care Overview Goal: Plan of Care Review Outcome: Ongoing (Interventions Implemented as Appropriate) 01/11/19 1044 01/11/192021 Coping/Psychosocial Plan Of Care Reviewed With -- patient Plan of Care Review Progress improving -- OUTCOME EVALUATION NOTE: OUTCOME SUMMARY: Behavior:Patient pleasant and cooperative, apologizing often for being frustrated and emotional. Patient was very emotional and tearful, upset and confused and feeling betrayed by her and thepsychiatrists here. Remained in room for most of shift, speaking on phone with , reading anddoing artwork. Patient states she is scared and frustrated because she is being forced to take medications she doesn't believe she should be taking and she just wants to go home. She believes that she should not be taking Risperidone because of the medication warnings about giving this medication to a person with hx of head injuries and strokes, this patient states she has had both and is scared of the potential harm this drug may cause. Patient is IEA'd and is refusing ECT. Rates: Anxiety 10, Pain 8, headache Denies: Depression, SI/HI, AVH Agrees to seek staff if feeling unsafe with self or others. Nutrition: No apparent problem observed or reported at this time. PRNs: 2020 Hydroxyzine 50mg 010 Tramadol 50mg Will continue to monitor. PLAN MOVING FORWARD: Promote healthy coping skills Groups Meet with team Ongoing discharge planning INDIVIDUALIZED FALL PREVENTION INTERVENTIONS: Patient-specific fall risk factors per assessment: [current deficits]: Low: medications Assistance [level of assistance required for transfers and ambulation]: Indep Supervision [direct monitoring required during toileting and ADLs]: Indep Surveillance [continuous indirect monitoring]: 15 min checks, RTU, environmental surveillance checks Goal: Individualization & Mutuality 01/11/192226 Mutuality/Individual Preferences What Anxieties, Fears or Concerns Do You Have About Your Health or Care? risperidol, concerned thismedication should not be given to people who have had TBIs What Questions Do You Have About Your Health or Care? why are they giving me risperidol if it saysyou shouldn't give it to person with brain injuries? Goal: Fall Prevention-Safe Patient Handling 01/11/19 1046 01/11/192021 Restraint Interventions Safety Promotion/Fall Prevention -- fall prevention program maintained;nonskid shoes/slippers when out of bed;safety round/check completed Activity Activity Type -- up ad lizzette Activity Assistance Provided -- independent Assistive Device Utilized -- none Positioning Body Position -- independent Daily Care Interventions Self-Care Promotion independence encouraged -- Calero Fall Risk History of Falling -- 0 Secondary Diagnosis -- 15 Ambulatory Aids -- 0 Intravenous Therapy/Heparin/Saline Lock -- 0 Gait/Transferring -- 0 Mental Status -- 0 Score -- 15 OTHER Calero Fall Risk -- Low Goal: Infection Control 01/11/192021 Coping Strategies Supportive Measures active listening utilized;counseling provided;decision- making supported;goal setting facilitated;positive reinforcement provided;problem solving facilitated;relaxation techniques promoted;self-care encouraged;self-reflection promoted;self-responsibility promoted;verbalization offeelings encouraged Safety Interventions Isolation Precautions standard precautions maintained Infection Prevention environmental surveillance performed;equipment surfaces disinfected;personal protective equipment utilized;rest/sleep promoted;single patient room provided Goal: Discharge Needs Assessment 01/08/19 2206 01/11/19 0426 Discharge Needs Assessment Concerns To Be Addressed -- cognitive/perceptual concerns;compliance issue concerns;coping/stress concerns;decision making concerns;discharge planning concerns;medication concerns;mental health concerns;relationship concerns;substance/tobacco abuse/use concerns;suicidal concerns Readmission Within The Last 30 Days -- no previous admission in last 30 days Provider Choice List(s) Given -- no Equipment Needed After Discharge -- none Discharge Facility/Level Of Care Needs -- independent living facility Current Discharge Risk -- abuse (physical, emotional, sexual, negligence);chronically ill;psychiatric illness;substance use/abuse Discharge Disposition -- still a patient Current Health Outpatient/Agency/Support Group Needs -- outpatient psychiatric care (specify) Anticipated Changes Related to Illness -- none Activity/Self Care Review of Systems Equipment Currently Used at Home -- none Living Environment Transportation Available none -- Goal: Interdisciplinary Rounds/Family Conf 01/11/19 1047 Interdisciplinary Rounds/Family Conf Participants nursing;patient;physician Problem: Coping, Compromised Individual (Adult,Obstetrics,Pediatric) Intervention: Support/Enhance Coping Strategies 01/11/192021 Coping Strategies Complementary Therapy art therapy Supportive Measures active listening utilized;counseling provided;decision- making supported;goal setting facilitated;positive reinforcement provided;problem solving facilitated;relaxation techniques promoted;self-care encouraged;self-reflection promoted;self-responsibility promoted;verbalization offeelings encouraged Family/Support System Care self-care encouraged;support provided Coping/Psychosocial Interventions Environmental Support calm environment promoted;comfort object encouraged;distractions minimized;environmental consistency promoted;personal routine supported;rest periods encouraged Goal: Effective Coping Patient will demonstrate the desired outcomes by discharge/transition of care. 01/11/19 1044 Coping, Compromised Individual (Adult,Obstetrics,Pediatric) Effective Coping making progress toward outcome * Plan of Care - Kim Espinoza RN - 01/11/2019 10:45 AM EST Problem: Patient Care Overview Goal: Interdisciplinary Rounds/Family Conf Outcome: Ongoing (Interventions Implemented as Appropriate) 01/11/19 1047 Interdisciplinary Rounds/Family Conf Participants nursing;patient;physician OUTCOME EVALUATION NOTE: OUTCOME SUMMARY: Patient was up early this am. She was angry and irritable on contact. She denies depression and rates her anxiety as 10/10. She admits she is angry. She denies thoughts of wanting to harm herself or others. She had Tramadol at 0900 for headache 08/04 with good effect. She has showered and has been working on art work in her room. Patient has been quiet and pleasant on contact from 0900 this am. Her visited and they played [employer]. There was no disruptive behavior noted during visit and she reported the visit went well. PLAN MOVING FORWARD: Monitor mood and behavior on the unit. INDIVIDUALIZED FALL PREVENTION INTERVENTIONS: low Patient-specific fall risk factors per assessment: [current deficits]: Medical issue Assistance [level of assistance required for transfers and ambulation]: independent Supervision [direct monitoring required during toileting and ADLs]: independent Surveillance [continuous indirect monitoring]: 15 minute safety checks, RTU Patient-specific fall prevention interventions for sensory deficits provided, if applicable: [X] N/A CPG GOAL OUTCOME EVALUATION: * Plan of Care - Elizabeth St RN - 01/11/2019 5:49 AM EST Problem: Patient Care Overview Goal: Fall Prevention-Safe Patient Handling Outcome: Ongoing (Interventions Implemented as Appropriate) 01/11/19 0426 Restraint Interventions Safety Promotion/Fall Prevention fall prevention program maintained;nonskid shoes/slippers when outof bed;safety round/check completed Activity Activity Type up ad lizzette Activity Assistance Provided independent Assistive Device Utilized none Positioning Body Position independent Daily Care Interventions Self-Care Promotion independence encouraged Calero Fall Risk History of Falling 0 Secondary Diagnosis 15 Ambulatory Aids 0 Intravenous Therapy/Heparin/Saline Lock 0 Gait/Transferring 0 Mental Status 0 Score 15 OTHER Calero Fall Risk Low OUTCOME EVALUATION NOTE: OUTCOME SUMMARY: Pt spent most of the evening on the computer and on the phone. She was very quietly irritable, asked for HS meds early (1944). Meds were given, patient refused prazosin. She went to bed for a short time, came out complaining about the noise in the common area, where her peers were enjoying television and reading with noise levels not remarkable. Patient asked for atarax at 1999 and was given atarax 50 mg po, per JAN. She proceeded to attempt to call her several times, he was not answering phone. She went on a diatribe about what a monster he is, stated that she is from him.... After about her 5th attempt to reach him with no success, she made a phone call to someone to doa wellness check on him. She then went on the computer until peers went to bed at about 10PM At 0200 patient came to nursing station with 8/10 headache. Tramadol 50 mg po was administered at 0210. Pt sleeping on reassessment. Pt was pleasant this morning when approached to administer levothyroxine. PLAN MOVING FORWARD: INDIVIDUALIZED FALL PREVENTION INTERVENTIONS: Patient-specific fall risk factors per assessment: [current deficits]: None Assistance [level of assistance required for transfers and ambulation]: Independent Supervision [direct monitoring required during toileting and ADLs]: independent Surveillance [continuous indirect monitoring]: 15 minute checks per unit policy Patient-specific fall prevention interventions for sensory deficits provided, if applicable: NA Goal: Infection Control Outcome: Ongoing (Interventions Implemented as Appropriate) 01/11/19425 Coping Strategies Supportive Measures -- Safety Interventions Isolation Precautions standard precautions maintained Infection Prevention rest/sleep promoted Patient is, currently, not especially receptive to listening or building new coping skills. Goal: Discharge Needs Assessment Outcome: Ongoing (Interventions Implemented as Appropriate) 01/11/19425 Discharge Needs Assessment Concerns To Be Addressed cognitive/perceptual concerns;compliance issue concerns;coping/stress concerns;decision making concerns;discharge planning concerns;medication concerns;mental health concerns;relationship concerns;substance/tobacco abuse/use concerns;suicidal concerns Readmission Within The Last 30 Days no previous admission in last 30 days Provider Choice List(s) Given no Equipment Needed After Discharge none Discharge Facility/Level Of Care Needs independent living facility Current Discharge Risk abuse (physical, emotional, sexual, negligence);chronically ill;psychiatric illness;substance use/abuse Discharge Disposition still a patient Current Health Outpatient/Agency/Support Group Needs outpatient psychiatric care (specify) Anticipated Changes Related to Illness none Activity/Self Care Review of Systems Equipment Currently Used at Home none Problem: Coping, Compromised Individual (Adult,Obstetrics,Pediatric) Intervention: Support/Enhance Coping Strategies 01/11/19425 Coping Strategies Family/Support System Care self-care encouraged;support provided Coping/Psychosocial Interventions Environmental Support calm environment promoted;caregiver consistency promoted;rest periods encouraged Goal: Effective Coping Patient will demonstrate the desired outcomes by discharge/transition of care. Outcome: Ongoing (Interventions Implemented as Appropriate) 01/11/19425 Coping, Compromised Individual (Adult,Obstetrics,Pediatric) Effective Coping making progress toward outcome Comments: Pt is med-compliant, labile in mood, difficult to engage in therapeutic conversation. This evening she was not able to be redirected away from focus on her anger toward her and irritation over friendly activity around her, however, she was not loud and did not use profanities. * Plan of Care - Elizabeth St RN - 01/11/2019 4:33 AM EST Problem: Patient Care Overview Goal: Fall Prevention-Safe Patient Handling Outcome: Ongoing (Interventions Implemented as Appropriate) 01/11/19425 Restraint Interventions Safety Promotion/Fall Prevention fall prevention program maintained;nonskid shoes/slippers when outof bed;safety round/check completed Activity Activity Type up ad lizzette Activity Assistance Provided independent Assistive Device Utilized none Positioning Body Position independent Daily Care Interventions Self-Care Promotion independence encouraged Calero Fall Risk History of Falling 0 Secondary Diagnosis 15 Ambulatory Aids 0 Intravenous Therapy/Heparin/Saline Lock 0 Gait/Transferring 0 Mental Status 0 Score 15 OTHER Calero Fall Risk Low Goal: Infection Control Outcome: Ongoing (Interventions Implemented as Appropriate) 01/11/19425 Coping Strategies Supportive Measures -- Safety Interventions Isolation Precautions standard precautions maintained Infection Prevention rest/sleep promoted Patient is, currently, not especially receptive to listening or building new coping skills. Goal: Discharge Needs Assessment Outcome: Ongoing (Interventions Implemented as Appropriate) 01/11/19425 Discharge Needs Assessment Concerns To Be Addressed cognitive/perceptual concerns;compliance issue concerns;coping/stress concerns;decision making concerns;discharge planning concerns;medication concerns;mental health concerns;relationship concerns;substance/tobacco abuse/use concerns;suicidal concerns Readmission Within The Last 30 Days no previous admission in last 30 days Provider Choice List(s) Given no Equipment Needed After Discharge none Discharge Facility/Level Of Care Needs independent living facility Current Discharge Risk abuse (physical, emotional, sexual, negligence);chronically ill;psychiatric illness;substance use/abuse Discharge Disposition still a patient Current Health Outpatient/Agency/Support Group Needs outpatient psychiatric care (specify) Anticipated Changes Related to Illness none Activity/Self Care Review of Systems Equipment Currently Used at Home none Problem: Coping, Compromised Individual (Adult,Obstetrics,Pediatric) Intervention: Support/Enhance Coping Strategies 01/11/19425 Coping Strategies Family/Support System Care self-care encouraged;support provided Coping/Psychosocial Interventions Environmental Support calm environment promoted;caregiver consistency promoted;rest periods encouraged Goal: Effective Coping Patient will demonstrate the desired outcomes by discharge/transition of care. Outcome: Ongoing (Interventions Implemented as Appropriate) 01/11/19425 Coping, Compromised Individual (Adult,Obstetrics,Pediatric) Effective Coping making progress toward outcome Comments: OUTCOME EVALUATION NOTE: OUTCOME SUMMARY: Pt spent most of the evening on the computer and on the phone. She was very quietly irritable, asked for HS meds early (1944). Meds were given, patient refused prazosin. She went to bed for a short time, came out complaining about the noise in the common area, where her peers were enjoying television and reading with noise levels not remarkable. Patient asked for atarax at 1999 and was given atarax 50 mg po, per JAN. She proceeded to attempt to call her several times, he was not answering phone. She went on a diatribe about what a monster he is, stated that she is from him.... After about her 5ht attempt to reach him with no success, she made a phone call to someone to doa wellness check on him. She then went on the computer PLAN MOVING FORWARD: INDIVIDUALIZED FALL PREVENTION INTERVENTIONS: Patient-specific fall risk factors per assessment: [current deficits]: Assistance [level of assistance required for transfers and ambulation]: Supervision [direct monitoring required during toileting and ADLs]: Surveillance [continuous indirect monitoring]: Patient-specific fall prevention interventions for sensory deficits provided, if applicable: NA CPG GOAL OUTCOME EVALUATION: * Plan of Care - Kim Espinoza RN - 01/10/2019 12:59 PM EST Problem: Patient Care Overview Goal: Interdisciplinary Rounds/Family Conf Outcome: Ongoing (Interventions Implemented as Appropriate) 01/10/19 1301 Interdisciplinary Rounds/Family Conf Participants nursing;patient;physician OUTCOME EVALUATION NOTE: OUTCOME SUMMARY: Patient was up early this am. She denies depression, anxiety or kee. She denies thoughts of wanting to harm herself or others. She told journalists and other writers that she was leaving AMA today. She was seen by Dr. Yu and was told she was not allowed to leave and an IEA would be filed for her to go to [facility] if sheinsisted on leaving. She has been loud and disruptive since finding out this information. She is irritable and has been calling her and yelling at him. She has had PRN clonazepam, propranololand hydroxyzine. She has been using the exercise bike in between phone calls. PLAN MOVING FORWARD: IEA to [facility] per Dr. Yu. RTU INDIVIDUALIZED FALL PREVENTION INTERVENTIONS: low Patient-specific fall risk factors per assessment: [current deficits]: Medical issue Assistance [level of assistance required for transfers and ambulation]: independent Supervision [direct monitoring required during toileting and ADLs]: independent Surveillance [continuous indirect monitoring]: 15 minute safety checks, RTU Patient-specific fall prevention interventions for sensory deficits provided, if applicable: [X] N/A CPG GOAL OUTCOME EVALUATION: * Plan of Care - Brigid Murguia RN - 01/09/2019 10:24 PM EST Problem: Patient Care Overview Goal: Plan of Care Review Outcome: Ongoing (Interventions Implemented as Appropriate) 01/08/19 2206 Coping/Psychosocial Plan Of Care Reviewed With patient Plan of Care Review Progress progress toward functional goals as expected OUTCOME EVALUATION NOTE: OUTCOME SUMMARY: Pt bright , calm, and social this gabrielle. No agitation noted. Pt does report she is upset about not being discharged today, but plans to ask MD tomorrow. Joking with journalists and other writers and peers. Pt denies depression, anxiety, pain, SI, and AH/VH. Pt declined PM Prazosin and did request and receive Atarax 50 for sleep. PLAN MOVING FORWARD: meds as ordered, group therapy, discharge planning. INDIVIDUALIZED FALL PREVENTION INTERVENTIONS: Patient-specific fall risk factors per assessment: [current deficits]: none Assistance [level of assistance required for transfers and ambulation]: independent Supervision [direct monitoring required during toileting and ADLs]: Esc to group Surveillance [continuous indirect monitoring]: q 15 minute checks Patient-specific fall prevention interventions for sensory deficits provided, if applicable: [X] No CPG GOAL OUTCOME EVALUATION: Pt less labile this gabrielle. Goal: Individualization & Mutuality Outcome: Ongoing (Interventions Implemented as Appropriate) 01/06/19 0034 01/08/19 1029 Individualization Patient Specific Preferences -- want AMA discharge Patient Specific Goals ECT treatment -- Patient Specific Interventions Provide therapeutic listening, validate feelings, offer emotional support, provide medication education, encourage compliance with medication regimen as ordered by MD, encourage involvement in treatment through group attendance and participation, assist in the identification of stressors, assist in the development of a viable Safety/Crisis plan, encourage self-advocacy and self-efficacy. -- Mutuality/Individual Preferences What Anxieties, Fears or Concerns Do You Have About Your Health or Care? None -- What Questions Do You Have About Your Health or Care? None -- What Information Would Help Us Give You More Personalized Care? Can I have psyllium, please? -- Goal: Fall Prevention-Safe Patient Handling Outcome: Ongoing (Interventions Implemented as Appropriate) 01/08/19220501/09/19 0900 Restraint Interventions Safety Promotion/Fall Prevention -- fall prevention program maintained Activity Activity Type up ad lizzette -- Activity Assistance Provided independent -- Assistive Device Utilized none -- Positioning Body Position independent -- Daily Care Interventions Self-Care Promotion independence encouraged;BADL personal routines maintained -- Calero Fall Risk History of Falling -- 0 Secondary Diagnosis -- 15 Ambulatory Aids -- 0 Intravenous Therapy/Heparin/Saline Lock -- 0 Gait/Transferring -- 0 Mental Status -- 0 Score -- 15 OTHER Calero Fall Risk -- Low Goal: Infection Control Outcome: Ongoing (Interventions Implemented as Appropriate) 01/08/192205 Coping Strategies Supportive Measures active listening utilized;counseling provided;decision- making supported;goal setting facilitated;problem solving facilitated;positive reinforcement provided;relaxation techniques promoted;self-care encouraged;self- responsibility promoted;self-reflection promoted;verbalization offeelings encouraged Safety Interventions Isolation Precautions standard precautions maintained Infection Prevention environmental surveillance performed;equipment surfaces disinfected;rest/sleeppromoted;single patient room provided Goal: Discharge Needs Assessment Outcome: Ongoing (Interventions Implemented as Appropriate) 01/08/192205 Discharge Needs Assessment Concerns To Be Addressed mental health concerns;medication concerns;relationship concerns;substance/tobacco abuse/use concerns;grief and loss concerns;coping/stress concerns;cognitive/perceptual concerns Readmission Within The Last 30 Days no previous admission in last 30 days Provider Choice List(s) Given no Equipment Needed After Discharge none Discharge Facility/Level Of Care Needs independent living facility Current Discharge Risk abuse (physical, emotional, sexual, negligence);chronically ill;psychiatric illness;substance use/abuse Discharge Disposition still a patient Current Health Outpatient/Agency/Support Group Needs outpatient psychiatric care (specify) Anticipated Changes Related to Illness none Activity/Self Care Review of Systems Equipment Currently Used at Home none Living Environment Transportation Available none Goal: Interdisciplinary Rounds/Family Conf Outcome: Ongoing (Interventions Implemented as Appropriate) 01/08/196 Interdisciplinary Rounds/Family Conf Participants nursing;patient Problem: Coping, Compromised Individual (Adult,Obstetrics,Pediatric) Goal: Effective Coping Patient will demonstrate the desired outcomes by discharge/transition of care. Outcome: Ongoing (Interventions Implemented as Appropriate) 01/09/19 2220 Coping, Compromised Individual (Adult,Obstetrics,Pediatric) Effective Coping making progress toward outcome * Plan of Care - Rosa Jimenez RN - 01/09/2019 1:13 PM EST Problem: Coping, Compromised Individual (Adult,Obstetrics,Pediatric) Goal: Effective Coping Patient will demonstrate the desired outcomes by discharge/transition of care. Outcome: Ongoing (Interventions Implemented as Appropriate) 01/09/19 1303 Coping, Compromised Individual (Adult,Obstetrics,Pediatric) Effective Coping making progress toward outcome OUTCOME EVALUATION NOTE: OUTCOME SUMMARY: Most of the morning pt has been irritated, sarcastic and angry r/t to wanting to be discharged. Pt states the ECT was awaful and I will not have it again. Denies depression,SI/HI and states she will let saff know if this changes, but hopefully I'll be home. In team meet pt verbalized her feelings of not wanting more ECT and wanting to go home. After discussing with the team reasons why it would be beneficial for pt to stay, pt agreed, and agreed to take a new medication. After reading about the side effects pt declined the new medication. came to give pt some belongs and pt now wants to be discharged. is aware and stated she will notify Dr. Ryan. PLAN MOVING FORWARD: Encourage pt to stay for more treatment. INDIVIDUALIZED FALL PREVENTION INTERVENTIONS: Patient-specific fall risk factors per assessment: [current deficits]: low Assistance [level of assistance required for transfers and ambulation]: independent Supervision [direct monitoring required during toileting and ADLs]: independent Surveillance [continuous indirect monitoring]: 15 minute checks Patient-specific fall prevention interventions for sensory deficits provided, if applicable: CPG GOAL OUTCOME EVALUATION: * Plan of Care - Giovanny Bob RN - 01/08/2019 10:17 PM EST Problem: Patient Care Overview Goal: Plan of Care Review Outcome: Ongoing (Interventions Implemented as Appropriate) 01/08/192205 Coping/Psychosocial Plan Of Care Reviewed With patient Plan of Care Review Progress progress toward functional goals as expected OUTCOME EVALUATION NOTE: OUTCOME SUMMARY: Pt was very agitated this evening. Pt said I can't be in here for another satggin day. Pt rated her depression as awsome, and her anxiety as 10/10. Pt stated that her only options were here or [place]. Pt was dropping f bombs with regularity. Pt did not take her Clonazepam (1 mg) or her regularAtarax (50 mg) as planned. Pt took Senna and Metamucil and said she is not going to sleep tonight. Pt denies pain, SI and AVH. Pt did not have a BM today and she agrees to contact staff if she is having unsafe thoughts. Pt came out of room at 2215 and requested the rest of her meds. Pt also requested Prazosin for nightmares. PLAN MOVING FORWARD: Continue to monitor, drug counselor and encourage. Medications administered as prescribed and needed. INDIVIDUALIZED FALL PREVENTION INTERVENTIONS: Patient-specific fall risk factors per assessment: [current deficits]: Fall prevention program maintained. Non-skid socks worn on unit. Assistance [level of assistance required for transfers and ambulation]: Independent Supervision [direct monitoring required during toileting and ADLs]: Independent Surveillance [continuous indirect monitoring]: Q 15 min Patient-specific fall prevention interventions for sensory deficits provided, if applicable: Pt is a low fall risk. CPG GOAL OUTCOME EVALUATION: Goal: Fall Prevention-Safe Patient Handling Outcome: Ongoing (Interventions Implemented as Appropriate) 01/08/192205 Restraint Interventions Safety Promotion/Fall Prevention fall prevention program maintained;nonskid shoes/slippers when outof bed Activity Activity Type up ad lizzette Activity Assistance Provided independent Assistive Device Utilized none Positioning Body Position independent Daily Care Interventions Self-Care Promotion independence encouraged;BADL personal routines maintained Calero Fall Risk History of Falling 0 Secondary Diagnosis 15 Ambulatory Aids 0 Intravenous Therapy/Heparin/Saline Lock 0 Gait/Transferring 0 Mental Status 0 Score 15 OTHER Calero Fall Risk Low Goal: Infection Control Outcome: Ongoing (Interventions Implemented as Appropriate) 01/08/192205 Coping Strategies Supportive Measures active listening utilized;counseling provided;decision- making supported;goal setting facilitated;problem solving facilitated;positive reinforcement provided;relaxation techniques promoted;self-care encouraged;self- responsibility promoted;self-reflection promoted;verbalization offeelings encouraged Safety Interventions Isolation Precautions standard precautions maintained Infection Prevention environmental surveillance performed;equipment surfaces disinfected;rest/sleeppromoted;single patient room provided Goal: Discharge Needs Assessment Outcome: Ongoing (Interventions Implemented as Appropriate) 01/08/192205 Discharge Needs Assessment Concerns To Be Addressed mental health concerns;medication concerns;relationship concerns;substance/tobacco abuse/use concerns;grief and loss concerns;coping/stress concerns;cognitive/perceptual concerns Readmission Within The Last 30 Days no previous admission in last 30 days Provider Choice List(s) Given no Equipment Needed After Discharge none Discharge Facility/Level Of Care Needs independent living facility Current Discharge Risk abuse (physical, emotional, sexual, negligence);chronically ill;psychiatric illness;substance use/abuse Discharge Disposition still a patient Current Health Outpatient/Agency/Support Group Needs outpatient psychiatric care (specify) Anticipated Changes Related to Illness none Activity/Self Care Review of Systems Equipment Currently Used at Home none Living Environment Transportation Available none Goal: Interdisciplinary Rounds/Family Conf Outcome: Ongoing (Interventions Implemented as Appropriate) 01/08/192205 Interdisciplinary Rounds/Family Conf Participants nursing;patient Problem: Coping, Compromised Individual (Adult,Obstetrics,Pediatric) Intervention: Support/Enhance Coping Strategies 01/08/192205 Coping Strategies Supportive Measures active listening utilized;counseling provided;decision- making supported;goal setting facilitated;problem solving facilitated;positive reinforcement provided;relaxation techniques promoted;self-care encouraged;self- responsibility promoted;self-reflection promoted;verbalization offeelings encouraged Family/Support System Care self-care encouraged;support provided Coping/Psychosocial Interventions Environmental Support calm environment promoted;personal routine supported;rest periods encouraged;environmental consistency promoted Goal: Effective Coping Patient will demonstrate the desired outcomes by discharge/transition of care. Outcome: Ongoing (Interventions Implemented as Appropriate) 01/08/19 2206 Coping, Compromised Individual (Adult,Obstetrics,Pediatric) Effective Coping making progress toward outcome * Plan of Care - Elda Kay - 01/08/2019 10:39 AM EST Problem: Patient Care Overview Goal: Plan of Care Review 01/08/19 1029 Coping/Psychosocial Plan Of Care Reviewed With patient Plan of Care Review Progress progress toward functional goals as expected OUTCOME EVALUATION NOTE: OUTCOME SUMMARY: Per RN report patient slept 5.5 hours. Patient went to ECT this morning, PACU reported patient couldn't remember procedure. returned disoriented to place, time, situation - patient confused, couldnt recall why in hospital. Patient irritable, agitated - klonopin prn given. Patient reported headache, prn tramadol given. Patient demanding to leave AMA Rn support and provided. Patient given breakfast tray, able to recall what she ordered. Patient able to remember RN. Once reoriented patient calmed down, polite with nursing staff, apologized for getting snappy Patient denies si/hi and a/v/h. Patient line flushed in PACU Patient given zofran for nausea PLAN MOVING FORWARD: ECT, increased coping skills INDIVIDUALIZED FALL PREVENTION INTERVENTIONS: Patient-specific fall risk factors per assessment: [current deficits]: med Assistance [level of assistance required for transfers and ambulation]: na Supervision [direct monitoring required during toileting and ADLs]: na Surveillance [continuous indirect monitoring]: q 15 minutes Patient-specific fall prevention interventions for sensory deficits provided, if applicable: na CPG GOAL OUTCOME EVALUATION: Goal: Individualization & Mutuality 01/06/19 0034 01/08/19 1029 Individualization Patient Specific Preferences -- want AMA discharge Patient Specific Goals ECT treatment -- Patient Specific Interventions Provide therapeutic listening, validate feelings, offer emotional support, provide medication education, encourage compliance with medication regimen as ordered by MD, encourage involvement in treatment through group attendance and participation, assist in the identification of stressors, assist in the development of a viable Safety/Crisis plan, encourage self-advoca cy and self-efficacy. -- Mutuality/Individual Preferences What Anxieties, Fears or Concerns Do You Have About Your Health or Care? None -- What Questions Do You Have About Your Health or Care? None -- What Information Would Help Us Give You More Personalized Care? Can I have psyllium, please? -- Goal: Fall Prevention-Safe Patient Handling 01/07/19222401/08/199 01/08/19 102 Restraint Interventions Safety Promotion/Fall Prevention -- -- fall prevention program maintained Activity Activity Type -- up ad lizzette -- Activity Assistance Provided -- independent -- Assistive Device Utilized -- none -- Positioning Body Position independent -- -- Daily Care Interventions Self-Care Promotion independence encouraged;BADL personal routines maintained -- -- [place] Fall Risk History of Falling -- -- 0 Secondary Diagnosis -- -- 15 Ambulatory Aids -- -- 0 Intravenous Therapy/Heparin/Saline Lock -- -- 20 Gait/Transferring -- -- 0 Mental Status -- -- 0 Score -- -- 35 OTHER [place] Fall Risk -- -- Med Goal: Infection Control 01/08/191028 Coping Strategies Supportive Measures active listening utilized;counseling provided;goal setting facilitated;positivereinforcement provided;problem solving facilitated;verbalization of feelings encouraged;relaxation techniques promoted Safety Interventions Isolation Precautions standard precautions maintained Infection Prevention environmental surveillance performed;rest/sleep promoted;single patient room provided Goal: Interdisciplinary Rounds/Family Conf 01/08/191028 Interdisciplinary Rounds/Family Conf Participants onsite case manager;nursing;patient;physician Problem: Coping, Compromised Individual (Adult,Obstetrics,Pediatric) Intervention: Support/Enhance Coping Strategies 01/08/191028 Coping Strategies Supportive Measures active listening utilized;counseling provided;goal setting facilitated;positivereinforcement provided;problem solving facilitated;verbalization of feelings encouraged;relaxation techniques promoted Coping/Psychosocial Interventions Environmental Support calm environment promoted Goal: Effective Coping Patient will demonstrate the desired outcomes by discharge/transition of care. 01/08/19 1029 Coping, Compromised Individual (Adult,Obstetrics,Pediatric) Effective Coping making progress toward outcome * Plan of Care - Giovanny Bob RN - 01/07/2019 10:33 PM EST Problem: Patient Care Overview Goal: Plan of Care Review Outcome: Ongoing (Interventions Implemented as Appropriate) 01/07/192224 Coping/Psychosocial Plan Of Care Reviewed With patient Plan of Care Review Progress progress toward functional goals as expected OUTCOME EVALUATION NOTE: OUTCOME SUMMARY: Pt said she can not rate depression. With respect to anxiety pt said she was agitated. Pt reportsa CAMP with pain of 4/10. Pt denies SI and AVH. Pt had a BM today and agrees to contact staff if she is having unsafe thoughts. Pt is scheduled for ECT in the morning. IV flushed with no difficulty. PLAN MOVING FORWARD: Continue to monitor, drug counselor and encourage. Medications administered as prescribed and needed. INDIVIDUALIZED FALL PREVENTION INTERVENTIONS: Patient-specific fall risk factors per assessment: [current deficits]: Fall prevention program maintained. Non-skid socks worn on unit. Assistance [level of assistance required for transfers and ambulation]: Independent Supervision [direct monitoring required during toileting and ADLs]: Independent Surveillance [continuous indirect monitoring]: Q 15 min Patient-specific fall prevention interventions for sensory deficits provided, if applicable: Pt is a medium fall risk. CPG GOAL OUTCOME EVALUATION: Goal: Fall Prevention-Safe Patient Handling Outcome: Ongoing (Interventions Implemented as Appropriate) 01/07/192224 Restraint Interventions Safety Promotion/Fall Prevention fall prevention program maintained;nonskid shoes/slippers when outof bed Activity Activity Type up ad lizzette Activity Assistance Provided independent Assistive Device Utilized none Positioning Body Position independent Daily Care Interventions Self-Care Promotion independence encouraged;BADL personal routines maintained Calero Fall Risk History of Falling 0 Secondary Diagnosis 15 Ambulatory Aids 0 Intravenous Therapy/Heparin/Saline Lock 20 Gait/Transferring 0 Mental Status 0 Score 35 OTHER Calero Fall Risk Med Goal: Infection Control Outcome: Ongoing (Interventions Implemented as Appropriate) 01/07/19 222 Coping Strategies Supportive Measures active listening utilized;counseling provided;decision- making supported;goal setting facilitated;positive reinforcement provided;problem solving facilitated;self-care encouraged;relaxation techniques promoted;self-reflection promoted;self-responsibility promoted;verbalization of feelings encouraged Safety Interventions Isolation Precautions standard precautions maintained Infection Prevention environmental surveillance performed;equipment surfaces disinfected;rest/sleeppromoted;single patient room provided Goal: Discharge Needs Assessment Outcome: Ongoing (Interventions Implemented as Appropriate) 01/07/192224 Discharge Needs Assessment Concerns To Be Addressed mental health concerns;medication concerns;relationship concerns;substance/tobacco abuse/use concerns;grief and loss concerns;coping/stress concerns;cognitive/perceptual concerns Readmission Within The Last 30 Days no previous admission in last 30 days Provider Choice List(s) Given no Equipment Needed After Discharge none Discharge Facility/Level Of Care Needs independent living facility Current Discharge Risk abuse (physical, emotional, sexual, negligence);chronically ill;psychiatric illness;substance use/abuse Discharge Disposition still a patient Current Health Outpatient/Agency/Support Group Needs outpatient psychiatric care (specify) Anticipated Changes Related to Illness none Activity/Self Care Review of Systems Equipment Currently Used at Home none Living Environment Transportation Available none Goal: Interdisciplinary Rounds/Family Conf Outcome: Ongoing (Interventions Implemented as Appropriate) 01/07/192224 Interdisciplinary Rounds/Family Conf Participants nursing;patient Problem: Coping, Compromised Individual (Adult,Obstetrics,Pediatric) Intervention: Support/Enhance Coping Strategies 01/07/192224 Coping Strategies Supportive Measures active listening utilized;counseling provided;decision- making supported;goal setting facilitated;positive reinforcement provided;problem solving facilitated;self-care encouraged;relaxation techniques promoted;self-reflection promoted;self-responsibility promoted;verbalization of feelings encouraged Family/Support System Care self-care encouraged Coping/Psychosocial Interventions Environmental Support calm environment promoted;personal routine supported;environmental consistency promoted;rest periods encouraged Goal: Effective Coping Patient will demonstrate the desired outcomes by discharge/transition of care. Outcome: Ongoing (Interventions Implemented as Appropriate) 01/07/192224 Coping, Compromised Individual (Adult,Obstetrics,Pediatric) Effective Coping making progress toward outcome * Plan of Care - Elda Kay - 01/07/2019 1:00 PM EST Problem: Patient Care Overview Goal: Plan of Care Review 01/07/19 1252 Coping/Psychosocial Plan Of Care Reviewed With patient Plan of Care Review Progress progress toward functional goals as expected OUTCOME EVALUATION NOTE: OUTCOME SUMMARY: Per RN report patient slept 6.75 hours. PAtient went to ECT, returned wanting to sleep - patient confused, asked where am I? RN reoriented patient. Patient napping intermittently this morning, declined breakfast, in room with blinds closed. PAtient reported headache 09/03, tylenol given with no effect, ear plugs also given. Ice packs given to patient. Tramadol ordered per patient request. Patient ate soup/crackers for lunch. Patient calm and cooperative thus far into shift, 1300. Patient IV access flushed in PACU, patent. PAtient denies si/hi and av//h. Approximately 1430 patient reported her chest felt full VSS 132/75, pulse 65. Patient denies pain, MD notified. EKG completed, troponin labs taken Patient c/o increased anxiety, klonopin given. Tylenol given 1730 for 05/04 headache PAtient more visible on the unit during afternoon hours, visited. PLAN MOVING FORWARD: Continue to monitor thoughts mood behaviors, notify MD of changes. INDIVIDUALIZED FALL PREVENTION INTERVENTIONS: Patient-specific fall risk factors per assessment: [current deficits]: med Assistance [level of assistance required for transfers and ambulation]: na Supervision [direct monitoring required during toileting and ADLs]: na Surveillance [continuous indirect monitoring]: q 15 minutes Patient-specific fall prevention interventions for sensory deficits provided, if applicable: na CPG GOAL OUTCOME EVALUATION: Goal: Individualization & Mutuality 01/06/19 0034 Individualization Patient Specific Preferences Signed consent for ECT Patient Specific Goals ECT treatment Patient Specific Interventions Provide therapeutic listening, validate feelings, offer emotional support, provide medication education, encourage compliance with medication regimen as ordered by MD, encourage involvement in treatment through group attendance and participation, assist in the identification of stressors, assist in the development of a viable Safety/Crisis plan, encourage self-advoca cy and self-efficacy. Mutuality/Individual Preferences What Anxieties, Fears or Concerns Do You Have About Your Health or Care? None What Questions Do You Have About Your Health or Care? None What Information Would Help Us Give You More Personalized Care? Can I have psyllium, please? Goal: Fall Prevention-Safe Patient Handling 01/06/19 2214 01/07/19 0000 01/07/19 1000 Restraint Interventions Safety Promotion/Fall Prevention -- -- fall prevention program maintained Activity Activity Type -- up ad lizzette -- Activity Assistance Provided -- independent -- Assistive Device Utilized -- none -- Positioning Body Position independent -- -- Daily Care Interventions Self-Care Promotion independence encouraged;BADL personal routines maintained -- -- [place] Fall Risk History of Falling -- -- 0 Secondary Diagnosis -- -- 15 Ambulatory Aids -- -- 0 Intravenous Therapy/Heparin/Saline Lock -- -- 20 Gait/Transferring -- -- 0 Mental Status -- -- 0 Score -- -- 35 OTHER Calero Fall Risk -- -- Med Goal: Infection Control 01/07/19 1252 Coping Strategies Supportive Measures active listening utilized;goal setting facilitated;positive reinforcement provided;relaxation techniques promoted;self-responsibility promoted;problem solving facilitated;decision-making supported Safety Interventions Isolation Precautions standard precautions maintained Infection Prevention single patient room provided;environmental surveillance performed;equipment surfaces disinfected Goal: Interdisciplinary Rounds/Family Conf 01/07/19 1252 Interdisciplinary Rounds/Family Conf Participants nursing;patient Problem: Coping, Compromised Individual (Adult,Obstetrics,Pediatric) Intervention: Support/Enhance Coping Strategies 01/07/19 1252 Coping Strategies Supportive Measures active listening utilized;goal setting facilitated;positive reinforcement provided;relaxation techniques promoted;self-responsibility promoted;problem solving facilitated;decision-making supported Coping/Psychosocial Interventions Environmental Support calm environment promoted;personal routine supported;rest periods encouraged Goal: Effective Coping Patient will demonstrate the desired outcomes by discharge/transition of care. 01/07/19 1252 Coping, Compromised Individual (Adult,Obstetrics,Pediatric) Effective Coping making progress toward outcome * Plan of Care - Giovanny Bob RN - 01/06/2019 10:21 PM EST Problem: Patient Care Overview Goal: Plan of Care Review Outcome: Ongoing (Interventions Implemented as Appropriate) 01/06/19 5219 Coping/Psychosocial Plan Of Care Reviewed With patient Plan of Care Review Progress progress toward functional goals as expected OUTCOME EVALUATION NOTE: OUTCOME SUMMARY: Pt is anxious about ECT. PT has not had a BM in a few days, so when she returns from ECT, she should receive a Fleets Enema which has already been ordered. Pt complains of neck and leg pain associated with our beds. Pt is cooperative. PLAN MOVING FORWARD: Continue to monitor, drug counselor and encourage. Medications administered as prescribed and needed. INDIVIDUALIZED FALL PREVENTION INTERVENTIONS: Patient-specific fall risk factors per assessment: [current deficits]: Fall prevention program maintained. Non-skid socks worn on unit. Assistance [level of assistance required for transfers and ambulation]: Independent Supervision [direct monitoring required during toileting and ADLs]: Independent Surveillance [continuous indirect monitoring]: Q 15 min Patient-specific fall prevention interventions for sensory deficits provided, if applicable: Pt is a medium fall risk. CPG GOAL OUTCOME EVALUATION: Goal: Fall Prevention-Safe Patient Handling Outcome: Ongoing (Interventions Implemented as Appropriate) 01/06/192213 Restraint Interventions Safety Promotion/Fall Prevention fall prevention program maintained;nonskid shoes/slippers when outof bed Activity Activity Type up ad lizzette Activity Assistance Provided independent Assistive Device Utilized none Positioning Body Position independent Daily Care Interventions Self-Care Promotion independence encouraged;BADL personal routines maintained Calero Fall Risk History of Falling 0 Secondary Diagnosis 15 Ambulatory Aids 0 Intravenous Therapy/Heparin/Saline Lock 0 Gait/Transferring 0 Mental Status 0 Score 15 OTHER Calero Fall Risk Low Goal: Infection Control Outcome: Ongoing (Interventions Implemented as Appropriate) 01/06/192213 Coping Strategies Supportive Measures active listening utilized;counseling provided;goal setting facilitated;decision-making supported;problem solving facilitated;positive reinforcement provided;relaxation techniques promoted;self-care encouraged;self- responsibility promoted;self-reflection promoted;verbalization offeelings encouraged Safety Interventions Isolation Precautions standard precautions maintained Infection Prevention environmental surveillance performed;equipment surfaces disinfected;rest/sleeppromoted;single patient room provided Goal: Discharge Needs Assessment Outcome: Ongoing (Interventions Implemented as Appropriate) 01/06/192213 Discharge Needs Assessment Concerns To Be Addressed mental health concerns;medication concerns;relationship concerns;substance/tobacco abuse/use concerns;grief and loss concerns;decision making concerns;coping/stress concerns;cognitive/perceptual concerns Readmission Within The Last 30 Days no previous admission in last 30 days Provider Choice List(s) Given no Equipment Needed After Discharge none Discharge Facility/Level Of Care Needs independent living facility Current Discharge Risk abuse (physical, emotional, sexual, negligence);chronically ill;psychiatric illness;substance use/abuse Discharge Disposition still a patient Current Health Outpatient/Agency/Support Group Needs outpatient psychiatric care (specify) Anticipated Changes Related to Illness none Activity/Self Care Review of Systems Equipment Currently Used at Home none Living Environment Transportation Available none Goal: Interdisciplinary Rounds/Family Conf Outcome: Ongoing (Interventions Implemented as Appropriate) 01/06/192213 Interdisciplinary Rounds/Family Conf Participants nursing;patient Problem: Coping, Compromised Individual (Adult,Obstetrics,Pediatric) Intervention: Support/Enhance Coping Strategies 01/06/192213 Coping Strategies Supportive Measures active listening utilized;counseling provided;goal setting facilitated;decision-making supported;problem solving facilitated;positive reinforcement provided;relaxation techniques promoted;self-care encouraged;self- responsibility promoted;self-reflection promoted;verbalization offeelings encouraged Family/Support System Care self-care encouraged Coping/Psychosocial Interventions Environmental Support calm environment promoted;environmental consistency promoted;personal routinesupported;rest periods encouraged Goal: Effective Coping Patient will demonstrate the desired outcomes by discharge/transition of care. Outcome: Ongoing (Interventions Implemented as Appropriate) 01/06/192213 Coping, Compromised Individual (Adult,Obstetrics,Pediatric) Effective Coping making progress toward outcome * Plan of Care - Rosa Jimenez RN - 01/06/2019 6:11 PM EST Problem: Coping, Compromised Individual (Adult,Obstetrics,Pediatric) Goal: Effective Coping Patient will demonstrate the desired outcomes by discharge/transition of care. Outcome: Ongoing (Interventions Implemented as Appropriate) 01/06/191801 Coping, Compromised Individual (Adult,Obstetrics,Pediatric) Effective Coping making progress toward outcome OUTCOME EVALUATION NOTE: OUTCOME SUMMARY: During the morning pt was very liable, emotions ranging fromfeeling good to anger, sadness and anxiety. Used a couple prns to help control these emotions and the medication that appeared to help was the Ativan. The afternoon was better for the pt stating she felt calmer and more relaxed. Declinedto rate mood stating the numbers don't mean anything to me. Pt attended groups and was very social with peers all shift. C/o constipation and senna was ordered and given. Pt was approved for ECT inthe AM. IV access placed. PLAN MOVING FORWARD: NPO past midnight for ECT in AM. Monitor for BM r/y pt taking senna earlier. Continue to encourage compliance with treatment plan. INDIVIDUALIZED FALL PREVENTION INTERVENTIONS: Patient-specific fall risk factors per assessment: [current deficits]: medium Assistance [level of assistance required for transfers and ambulation]: independent Supervision [direct monitoring required during toileting and ADLs]: independent Surveillance [continuous indirect monitoring]: 15 minute checks Patient-specific fall prevention interventions for sensory deficits provided, if applicable: CPG GOAL OUTCOME EVALUATION: * Plan of Care - Hope Mcneill RN - 01/06/2019 12:37 AM EST Problem: Patient Care Overview Goal: Plan of Care Review Outcome: Ongoing (Interventions Implemented as Appropriate) 01/06/19 0034 Coping/Psychosocial Plan Of Care Reviewed With patient Plan of Care Review Progress improving OUTCOME EVALUATION NOTE: OUTCOME SUMMARY: Isaura endorsed 2/10 anxiety and denied depression. Denied SI/SH/HI and contracted for safety, agreeing to seek staff support if feeling unsafe. Denied AVH. Denied pain. Polite and cooperative and displayed pleasant and bright affect. Visible in the milieu, attended and participated in groups and ac tivities, interacted appropriately with staff and peers, and compliant with medication regimen. PLAN MOVING FORWARD: Foster positive and optimal patient outcomes through the following nursing actions and interventions: provide medication education and encourage compliance with medication regimen as ordered by MD; prompt group attendance; encourage use of identified coping skills; monitor mood and behavior; provide therapeutic listening; encourage verbalization of feelings and provide validation; assist in short-term and long-term goal setting; and provide emotional support as needed. INDIVIDUALIZED FALL PREVENTION INTERVENTIONS: Patient-specific fall risk factors per assessment: [current deficits]: None Assistance [level of assistance required for transfers and ambulation]: Independent Supervision [direct monitoring required during toileting and ADLs]: Independent Surveillance [continuous indirect monitoring]: 15 minute safety checks maintained throughout shift Patient-specific fall prevention interventions for sensory deficits provided, if applicable: [X] No Fall prevention program maintained, non-slip footwear required when ambulating, muscle strengthening facilitated, bed in low position, lighting adjusted, 15 minute safety checks maintained throughoutthe shift. CPG GOAL OUTCOME EVALUATION: Continue to: provide therapeutic listening, validate feelings, promote self- care, encourage active participation in treatment through group attendance, offer emotional support, encourage self-advocacy, promote self-efficacy, assist patient in the development of a viable crisis/safety plan they can implement when feeling unsafe, provide medication education and encourage compliance with medicationregimen as ordered by MD. Goal: Individualization & Mutuality Outcome: Ongoing (Interventions Implemented as Appropriate) 01/06/19 0034 Individualization Patient Specific Preferences Signed consent for ECT Patient Specific Goals ECT treatment Patient Specific Interventions Provide therapeutic listening, validate feelings, offer emotional support, provide medication education, encourage compliance with medication regimen as ordered by MD, encourage involvement in treatment through group attendance and participation, assist in the identification of stressors, assist in the development of a viable Safety/Crisis plan, encourage self-advocacy and self-efficacy. Mutuality/Individual Preferences What Anxieties, Fears or Concerns Do You Have About Your Health or Care? None What Questions Do You Have About Your Health or Care? None What Information Would Help Us Give You More Personalized Care? Can I have psyllium, please? Goal: Fall Prevention-Safe Patient Handling Outcome: Ongoing (Interventions Implemented as Appropriate) 01/04/19173201/04/19192401/05/19 0800 Restraint Interventions Safety Promotion/Fall Prevention -- -- -- Activity Activity Type -- up ad lizzette -- Activity Assistance Provided -- independent -- Assistive Device Utilized -- none -- Positioning Body Position -- independent -- Daily Care Interventions Self-Care Promotion independence encouraged -- -- [place] Fall Risk History of Falling -- -- 0 Secondary Diagnosis -- -- 15 Ambulatory Aids -- -- 0 Intravenous Therapy/Heparin/Saline Lock -- -- 0 Gait/Transferring -- -- 0 Mental Status -- -- 0 Score -- -- 15 OTHER [place] Fall Risk -- Low -- 01/05/192014 Restraint Interventions Safety Promotion/Fall Prevention fall prevention program maintained;muscle strengthening facilitated;nonskid shoes/slippers when out of bed;safety round/check completed Activity Activity Type -- Activity Assistance Provided -- Assistive Device Utilized -- Positioning Body Position -- Daily Care Interventions Self-Care Promotion -- Cal[place] Fall Risk History of Falling -- Secondary Diagnosis -- Ambulatory Aids -- Intravenous Therapy/Heparin/Saline Lock -- Gait/Transferring -- Mental Status -- Score -- OTHER [place] Fall Risk -- Goal: Infection Control Outcome: Ongoing (Interventions Implemented as Appropriate) 01/04/19192401/05/192014 Coping Strategies Supportive Measures active listening utilized;counseling provided;decision- making supported;goal setting facilitated;positive reinforcement provided;problem solving facilitated;relaxation techniques promoted;self-care encouraged;self-reflection promoted;self-responsibility promoted;verbalization offeelings encouraged -- Safety Interventions Isolation Precautions -- standard precautions maintained Infection Prevention -- environmental surveillance performed;rest/sleep promoted;single patient room provided;visitors restricted/screened Goal: Discharge Needs Assessment Outcome: Ongoing (Interventions Implemented as Appropriate) 01/02/19 1351 01/04/19 1733 Discharge Needs Assessment Concerns To Be Addressed -- mental health concerns;medication concerns;relationship concerns;substance/tobacco abuse/use concerns;grief and loss concerns;decision making concerns;coping/stress concern s;cognitive/perceptual concerns Readmission Within The Last 30 Days -- no previous admission in last 30 days Provider Choice List(s) Given -- no Equipment Needed After Discharge -- none Discharge Facility/Level Of Care Needs -- independent living facility Current Discharge Risk -- abuse (physical, emotional, sexual, negligence);chronically ill;psychiatric illness;substance use/abuse Discharge Disposition -- still a patient Current Health Outpatient/Agency/Support Group Needs outpatient psychiatric care (specify) -- Anticipated Changes Related to Illness -- none Activity/Self Care Review of Systems Equipment Currently Used at Home none -- Living Environment Transportation Available -- none Goal: Interdisciplinary Rounds/Family Conf Outcome: Ongoing (Interventions Implemented as Appropriate) 01/05/19 0404 Interdisciplinary Rounds/Family Conf Participants patient;nursing Problem: Coping, Compromised Individual (Adult,Obstetrics,Pediatric) Intervention: Support/Enhance Coping Strategies 01/04/19 1925 Coping Strategies Supportive Measures active listening utilized;counseling provided;decision- making supported;goal setting facilitated;positive reinforcement provided;problem solving facilitated;relaxation techniques promoted;self-care encouraged;self-reflection promoted;self-responsibility promoted;verbalization offeelings encouraged Family/Support System Care self-care encouraged;support provided Coping/Psychosocial Interventions Environmental Support calm environment promoted;caregiver consistency promoted;environmental consistency promoted;personal routine supported;rest periods encouraged Goal: Effective Coping Patient will demonstrate the desired outcomes by discharge/transition of care. Outcome: Ongoing (Interventions Implemented as Appropriate) 01/06/19 0034 Coping, Compromised Individual (Adult,Obstetrics,Pediatric) Effective Coping making progress toward outcome * Plan of Care - Yoana Franco - 01/05/2019 11:57 AM EST Problem: Patient Care Overview Goal: Plan of Care Review Outcome: Ongoing (Interventions Implemented as Appropriate) 01/04/19 1736 01/04/19 1925 Coping/Psychosocial Plan Of Care Reviewed With -- patient Plan of Care Review Progress progress towards functional goals is fair -- OUTCOME EVALUATION NOTE: OUTCOME SUMMARY: Patient reports unrestful sleep from previous night saying that she woke up 3 times crying. States if she had to put a number to anxiety it would be 5/10 and depression would be 5/10 but states it would increase to 10/10 if she thought too long about her circumstances. Patient contracts for safety.Denies AVH, SI, HI, and paranoia. Eating and taking in fluids appropriately. Rates neck pain at 4/10 and also claims to have a headache. Patient states that she want to receive ECT but is unsure if she will be approved and this is causing her anxiety. Received PRN Ativan at 1030 for anxiety. Attending groups and is focused on her goals of being kind and focused. PLAN MOVING FORWARD: Group therapy, medication education, have patient watch ECT video INDIVIDUALIZED FALL PREVENTION INTERVENTIONS: Patient-specific fall risk factors per assessment: [current deficits]: Low Assistance [level of assistance required for transfers and ambulation]: Independent Supervision [direct monitoring required during toileting and ADLs]: Independent Surveillance [continuous indirect monitoring]: Q15min checks and environmental sweeps Patient-specific fall prevention interventions for sensory deficits provided, if applicable: NA CPG GOAL OUTCOME EVALUATION: Medication compliance,continues to attend group therapy, remains safe * Plan of Care - Deandra Aguilar RN - 01/05/2019 4:05 AM EST Problem: Patient Care Overview Goal: Plan of Care Review OUTCOME EVALUATION NOTE: OUTCOME SUMMARY: Behavior: Patient pleasant and cooperative, with blunted affect, and appropriate eye contact. Patient AOx4 and VSS, visible on unit, social with and supportive of peers. 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 Rates: Depression 5, Anxiety 7, Pain 6 in neck from pillows Denies: SI/HI, AVH and Pain Agrees to seek staff if feeling unsafe with self or others. Last BM: 3 days ago, patient reports constipation Nutrition: No apparent problem observed or reported at this time. PRNs: 192 Nicorette gum and Psyllium packet 0239 Ativan 2mg 0632 Propanolol 10mg Will continue to monitor. PLAN MOVING FORWARD: Promote healthy coping skills Groups Meet with team Ongoing discharge planning INDIVIDUALIZED FALL PREVENTION INTERVENTIONS: Patient-specific fall risk factors per assessment: [current deficits]: Low: medications Assistance [level of assistance required for transfers and ambulation]: Indep Supervision [direct monitoring required during toileting and ADLs]: Indep Surveillance [continuous indirect monitoring]: 15 min checks, ETG Goal: Individualization & Mutuality Outcome: Ongoing (Interventions Implemented as Appropriate) 01/04/191732 Individualization Patient Specific Preferences can I use my brushes Patient Specific Goals interested in ECT tx Patient Specific Interventions listen, educate, support, encourage to do Yoga Mutuality/Individual Preferences What Anxieties, Fears or Concerns Do You Have About Your Health or Care? I am anxious that my temper just takes over What Questions Do You Have About Your Health or Care? no What Information Would Help Us Give You More Personalized Care? I do yoga 2-3 x a WEEK Goal: Fall Prevention-Safe Patient Handling 01/04/19173201/04/191924 Restraint Interventions Safety Promotion/Fall Prevention -- fall prevention program maintained;nonskid shoes/slippers when out of bed;safety round/check completed Activity Activity Type -- up ad lizzette Activity Assistance Provided -- independent Assistive Device Utilized -- none Positioning Body Position -- independent Daily Care Interventions Self-Care Promotion independence encouraged -- [place] Fall Risk History of Falling -- 0 Secondary Diagnosis -- 15 Ambulatory Aids -- 0 Intravenous Therapy/Heparin/Saline Lock -- 0 Gait/Transferring -- 0 Mental Status -- 0 Score -- 15 OTHER [place] Fall Risk -- Low Goal: Infection Control 01/04/191924 Coping Strategies Supportive Measures active listening utilized;counseling provided;decision- making supported;goal setting facilitated;positive reinforcement provided;problem solving facilitated;relaxation techniques promoted;self-care encouraged;self-reflection promoted;self-responsibility promoted;verbalization offeelings encouraged Safety Interventions Isolation Precautions standard precautions maintained Infection Prevention environmental surveillance performed;equipment surfaces disinfected;personal protective equipment utilized;rest/sleep promoted;single patient room provided Goal: Discharge Needs Assessment 01/02/19 1351 01/04/19 1733 Discharge Needs Assessment Concerns To Be Addressed -- mental health concerns;medication concerns;relationship concerns;substance/tobacco abuse/use concerns;grief and loss concerns;decision making concerns;coping/stress concern s;cognitive/perceptual concerns Readmission Within The Last 30 Days -- no previous admission in last 30 days Provider Choice List(s) Given -- no Equipment Needed After Discharge -- none Discharge Facility/Level Of Care Needs -- independent living facility Current Discharge Risk -- abuse (physical, emotional, sexual, negligence);chronically ill;psychiatric illness;substance use/abuse Discharge Disposition -- still a patient Current Health Outpatient/Agency/Support Group Needs outpatient psychiatric care (specify) -- Anticipated Changes Related to Illness -- none Activity/Self Care Review of Systems Equipment Currently Used at Home none -- Living Environment Transportation Available -- none Goal: Interdisciplinary Rounds/Family Conf 01/05/19 0404 Interdisciplinary Rounds/Family Conf Participants patient;nursing Problem: Coping, Compromised Individual (Adult,Obstetrics,Pediatric) Intervention: Support/Enhance Coping Strategies 01/03/19 1439 01/04/19 1925 Coping Strategies Complementary Therapy art therapy -- Supportive Measures -- active listening utilized;counseling provided;decision- making supported;goalsetting facilitated;positive reinforcement provided;problem solving facilitated;relaxation techniques promoted;self-care encouraged;self- reflection promoted;self-responsibility promoted;verbalizationof feelings encouraged Family/Support System Care -- self-care encouraged;support provided Coping/Psychosocial Interventions Environmental Support -- calm environment promoted;caregiver consistency promoted;environmental consistency promoted;personal routine supported;rest periods encouraged Goal: Effective Coping Patient will demonstrate the desired outcomes by discharge/transition of care. 01/04/19 173 Coping, Compromised Individual (Adult,Obstetrics,Pediatric) Effective Coping making progress toward outcome * Plan of Care - Concepcion Samuel RN - 01/04/2019 5:44 PM EST Problem: Patient Care Overview Goal: Plan of Care Review Outcome: Ongoing (Interventions Implemented as Appropriate) 01/04/19 173 Coping/Psychosocial Plan Of Care Reviewed With patient Plan of Care Review Progress progress towards functional goals is fair OUTCOME EVALUATION NOTE: OUTCOME SUMMARY: Isaura has poor insight into her health. She does not think 139/113 is high BP even after she had propanolol. She reports to have several positive coping skills, sleep, exercise, staying away from people when she is irate. She deneis any SI or HI here and agreed to seek me out if this changed. She is on an AAS scale. and scored 5 at 1015 and received 1 mg of Ativan . Her visited and they appeared to get along quite well. She had no emotional deregulation today- did rehash events from yesterday- Needed to be redirected x 3. She had a nap this afternoon and is hoping to have ECT after speaking with the DOC today PLAN MOVING FORWARD: Encourage prn for BP Support, VENKATA and groups and education Possible ECT ?? INDIVIDUALIZED FALL PREVENTION INTERVENTIONS: Patient-specific fall risk factors per assessment: [current deficits] LFR Assistance [level of assistance required for transfers and ambulation]: n/a Supervision [direct monitoring required during toileting and ADLs]: n/a Surveillance [continuous indirect monitoring]: 15 min Patient-specific fall prevention interventions for sensory deficits provided, if applicable: n/a CPG GOAL OUTCOME EVALUATION: * Plan of Care - Deandra Aguilar RN - 01/04/2019 2:37 AM EST Problem: Patient Care Overview Goal: Plan of Care Review Outcome: Ongoing (Interventions Implemented as Appropriate) 01/03/19 1439 01/03/19 2125 Coping/Psychosocial Plan Of Care Reviewed With -- patient Plan of Care Review Progress no change -- OUTCOME EVALUATION NOTE: OUTCOME SUMMARY: Behavior: Patient irritable at the beginning of the shift, full affect with appropriate eye contact. with patient, patient and went through belongings with WEARING APPAREL ASSEMBLER, sending home things that were not allowed on the unit. Patient and seemed annoyed by strict rules, but were compliant with requests. Patient originally upset that she did not have PRN bowel medications available but when this RN offered to contact the MD for an order patient refused and said I'll just drink prune juice and be constipated. Patient was pleasant and cooperative throughout rest of shift, social with and supportive of peers. Patient had difficulty sleeping, still agitated over events that happened throughout the day, spent a lot of time writing in her room, discussing her distress over these events with staff. Staff de-escalated patient's agitation utilizing active listening, support, validation of feelings, redirection, and endorsed coping skills and healthy alternatives to utilize when in similar stressful situations. Patient states she likes to chew her Ativan and let it dissolve under her tongue because it is absorbed and in effect quicker. At 0204 patient requested PRN Ativan, order is for PRN BID, last administration was 2018, this RN felt it was too soon for another dose, and offered Propranolol or Klonopin, but patient politely refused, stating they don't work fast enoughand returned to bed. *Patient refused vital signs for AAS d/t agitation, no signs of withdrawal observed by staff or reported by patient. Some insomnia noted, but this is not abnormal per patient report. No PRN Ativan given per AAS order. Rates: Anxiety 4, Agitation 10 Denies: Depression, SI/HI, AVH and Pain Agrees to seek staff if feeling unsafe with self or others. Last BM: patient states she is constipated, originally Nutrition: No apparent problem observed or reported at this time. PRNs: 1945 Ativan 2mg 2018 Nicorette 2mg Will continue to monitor. PLAN MOVING FORWARD: Promote healthy coping skills Groups Meet with team Ongoing discharge planning INDIVIDUALIZED FALL PREVENTION INTERVENTIONS: Patient-specific fall risk factors per assessment: [current deficits]: Low: medications Assistance [level of assistance required for transfers and ambulation]: Indep Supervision [direct monitoring required during toileting and ADLs]: Indep Surveillance [continuous indirect monitoring]: 15 min checks, ETG Goal: Individualization & Mutuality 01/01/19 2137 01/02/19 1351 01/03/19 1439 Individualization Patient Specific Preferences -- -- Patient wants to leave AMA Patient Specific Goals -- get information about lithium -- Mutuality/Individual Preferences What Anxieties, Fears or Concerns Do You Have About Your Health or Care? I am worried they will try to give me drugs that I don't want to take -- -- What Questions Do You Have About Your Health or Care? none -- -- What Information Would Help Us Give You More Personalized Care? I use light therapy at home -- -- Goal: Fall Prevention-Safe Patient Handling 01/02/19193601/03/192124 Restraint Interventions Safety Promotion/Fall Prevention -- fall prevention program maintained;nonskid shoes/slippers when out of bed;safety round/check completed Activity Activity Type -- up ad lizzette Activity Assistance Provided -- independent Assistive Device Utilized -- none Positioning Body Position -- independent Daily Care Interventions Self-Care Promotion independence encouraged -- Calero Fall Risk History of Falling -- 0 Secondary Diagnosis -- 15 Ambulatory Aids -- 0 Intravenous Therapy/Heparin/Saline Lock -- 0 Gait/Transferring -- 0 Mental Status -- 0 Score -- 15 OTHER Calero Fall Risk -- Low Goal: Infection Control 01/03/192124 Coping Strategies Supportive Measures active listening utilized;counseling provided;decision- making supported;goal setting facilitated;positive reinforcement provided;problem solving facilitated;relaxation techniques promoted;self-care encouraged;self-reflection promoted;self-responsibility promoted;verbalization offeelings encouraged Safety Interventions Isolation Precautions standard precautions maintained Infection Prevention environmental surveillance performed;equipment surfaces disinfected;personal protective equipment utilized;rest/sleep promoted;single patient room provided Goal: Discharge Needs Assessment 01/02/19 1351 01/02/191936 Discharge Needs Assessment Concerns To Be Addressed -- homicidal concerns;mental health concerns;relationship concerns;substance/tobacco abuse/use concerns;suicidal concerns Readmission Within The Last 30 Days no previous admission in last 30 days -- Equipment Needed After Discharge none -- Current Discharge Risk psychiatric illness;substance use/abuse -- Discharge Disposition still a patient -- Current Health Outpatient/Agency/Support Group Needs outpatient psychiatric care (specify) -- Anticipated Changes Related to Illness none -- Activity/Self Care Review of Systems Equipment Currently Used at Home none -- Living Environment Transportation Available family or friend will provide -- Goal: Interdisciplinary Rounds/Family Conf 01/03/191438 Interdisciplinary Rounds/Family Conf Participants nursing;patient;physician Problem: Coping, Compromised Individual (Adult,Obstetrics,Pediatric) Intervention: Support/Enhance Coping Strategies 01/03/19143801/03/192124 Coping Strategies Complementary Therapy art therapy -- Supportive Measures -- active listening utilized;counseling provided;decision- making supported;goalsetting facilitated;positive reinforcement provided;problem solving facilitated;relaxation techniques promoted;self-care encouraged;self- reflection promoted;self-responsibility promoted;verbalizationof feelings encouraged Family/Support System Care -- self-care encouraged;support provided Coping/Psychosocial Interventions Environmental Support -- calm environment promoted;environmental consistency promoted;personal routine supported;rest periods encouraged Goal: Effective Coping Patient will demonstrate the desired outcomes by discharge/transition of care. 01/03/19 1439 Coping, Compromised Individual (Adult,Obstetrics,Pediatric) Effective Coping making progress toward outcome * Plan of Care - Rahul Elda A - 01/03/2019 3:32 PM EST Problem: Patient Care Overview Goal: Plan of Care Review 01/03/19 1439 Coping/Psychosocial Plan Of Care Reviewed With patient Plan of Care Review Progress no change OUTCOME EVALUATION NOTE: OUTCOME SUMMARY: Per RN report patient slept 7.75 hours Patient awake upon arrival, well-groomed and dressed, showered. Patient eating adequately, medication compliant. Begining of shift patient Rated anxiety 2, agitation 2, but that can change in a second - depression not when I think about it. Denied SI/AVH. PAtient agitated after goals group- didn't want to set a goal, began walking heavy footed/pacing unit, swearing Patient labile, quickly changes between calm and cooperative to agitated - throwing paint brushes in room, verbally threatening staff, screaming obscenities. Patient appears to have difficulty with limit setting (not having metal water bottle and paintbrushes in room). PRns klonopin and propanolol given with little effect. patient Requesting AMA discharge, MD notified - met with patient, patient upset she cannot leave, ativan 2mg given Im just going to put my pajamas and go to sleep so I dont have to look at any of your faces for the next twelve hours. PAtient reports 2mg ativan not going to be enough for her. Patient monitored on AAS throughout morning, not scoring for prn ativan. Patient refused attempts to take VS/complete AAS mid-afternoon until end of shift. Continue to monitor thought mood behaviors, notify MD of changes. Patient visited all valuables retrieved from safe, returned to patient - took home. PLAN MOVING FORWARD: Medication stabilization, increased coping skills INDIVIDUALIZED FALL PREVENTION INTERVENTIONS: Patient-specific fall risk factors per assessment: [current deficits]: low Assistance [level of assistance required for transfers and ambulation]: independent Supervision [direct monitoring required during toileting and ADLs]: independent Surveillance [continuous indirect monitoring]: Q 15 minutes Patient-specific fall prevention interventions for sensory deficits provided, if applicable: n/a CPG GOAL OUTCOME EVALUATION: Goal: Individualization & Mutuality 01/01/19213601/02/19135001/03/191438 Individualization Patient Specific Preferences -- -- Patient wants to leave AMA Patient Specific Goals -- get information about lithium -- Mutuality/Individual Preferences What Anxieties, Fears or Concerns Do You Have About Your Health or Care? I am worried they will try to give me drugs that I don't want to take -- -- What Questions Do You Have About Your Health or Care? none -- -- What Information Would Help Us Give You More Personalized Care? I use light therapy at home -- -- Goal: Fall Prevention-Safe Patient Handling 01/02/19193601/03/1989901/03/191438 Restraint Interventions Safety Promotion/Fall Prevention -- fall prevention program maintained -- Activity Activity Type -- -- up ad lizzette Activity Assistance Provided -- -- independent Assistive Device Utilized none -- -- Positioning Body Position independent -- -- Daily Care Interventions Self-Care Promotion independence encouraged -- -- Calero Fall Risk History of Falling -- 0 -- Secondary Diagnosis -- 15 -- Ambulatory Aids -- 0 -- Intravenous Therapy/Heparin/Saline Lock -- 0 -- Gait/Transferring -- 0 -- Mental Status -- 0 -- Score -- 15 -- OTHER Calero Fall Risk -- Low -- Goal: Infection Control 01/03/191438 Coping Strategies Supportive Measures counseling provided;positive reinforcement provided;self- care encouraged;activelistening utilized;goal setting facilitated;relaxation techniques promoted;self-reflection promoted;self-responsibility promoted Safety Interventions Isolation Precautions standard precautions maintained Infection Prevention single patient room provided;environmental surveillance performed Goal: Discharge Needs Assessment 01/02/19135001/02/191936 Discharge Needs Assessment Concerns To Be Addressed -- homicidal concerns;mental health concerns;relationship concerns;substance/tobacco abuse/use concerns;suicidal concerns Readmission Within The Last 30 Days no previous admission in last 30 days -- Equipment Needed After Discharge none -- Current Discharge Risk psychiatric illness;substance use/abuse -- Discharge Disposition still a patient -- Current Health Outpatient/Agency/Support Group Needs outpatient psychiatric care (specify) -- Anticipated Changes Related to Illness none -- Activity/Self Care Review of Systems Equipment Currently Used at Home none -- Living Environment Transportation Available family or friend will provide -- Goal: Interdisciplinary Rounds/Family Conf 01/03/19 143 Interdisciplinary Rounds/Family Conf Participants nursing;patient;physician Problem: Coping, Compromised Individual (Adult,Obstetrics,Pediatric) Intervention: Support/Enhance Coping Strategies 01/03/19 143 Coping Strategies Complementary Therapy art therapy Supportive Measures counseling provided;positive reinforcement provided;self- care encouraged;activelistening utilized;goal setting facilitated;relaxation techniques promoted;self-reflection promoted;self-responsibility promoted Coping/Psychosocial Interventions Environmental Support calm environment promoted;environmental consistency promoted;distractions minimized;rest periods encouraged Goal: Effective Coping Patient will demonstrate the desired outcomes by discharge/transition of care. 01/03/191438 Coping, Compromised Individual (Adult,Obstetrics,Pediatric) Effective Coping making progress toward outcome * Plan of Care - Elizabeth Hassan RN - 01/02/2019 7:49 PM EST Problem: Patient Care Overview Goal: Plan of Care Review Outcome: Ongoing (Interventions Implemented as Appropriate) 01/02/191939 Coping/Psychosocial Plan Of Care Reviewed With patient Plan of Care Review Progress improving OUTCOME EVALUATION NOTE: OUTCOME SUMMARY: Pt didn't scor on AAS to receive ativan. She gets agitated when she doesn't get what she wants. Shewanted a shawl her came in and couldn't because of police, then started swearing and stomping on unit. Calmed down after talking with dr Torres and had no more out bursts. Compliant with meds. No safety issues. Relief from anxiety with klonopin from a 5 to a 2. PLAN MOVING FORWARD: Continue AAS, continue to monitor moods and behavior, encourage groups and work on coping skills, INDIVIDUALIZED FALL PREVENTION INTERVENTIONS: Patient-specific fall risk factors per assessment: [current deficits]: Other dx Assistance [level of assistance required for transfers and ambulation]: independent Supervision [direct monitoring required during toileting and ADLs]: none Surveillance [continuous indirect monitoring]: q 15 minute checks, purposeful rounding Patient-specific fall prevention interventions for sensory deficits provided, if applicable: Routine fall precautions, CPG GOAL OUTCOME EVALUATION: * Plan of Care - Rachel Fine RN - 01/02/2019 2:09 PM EST Problem: Patient Care Overview Goal: Plan of Care Review Outcome: Ongoing (Interventions Implemented as Appropriate) 01/02/19 1351 Coping/Psychosocial Plan Of Care Reviewed With patient Plan of Care Review Progress progress toward functional goals is gradual OUTCOME EVALUATION NOTE: OUTCOME SUMMARY: Pts mood and affect has been labile, irritable and angry with several complaints about the unit, food is wrong, toilet paper is rough, at one point yelling and throwing a few items in her room wanting to leave for home, was verbally redirectable ,states she wants ECT and not take lithium, written info and education completed for lithium, attended afternoon groups, received ativan 2 mg po on ativan assessment scale, scoring for elevated pulse and blood pressure plus agitation,pt rates anxiety at 10/10, states she is too annoyed to rate depression, denies SI/HI on unit, talking with Dr about medications, calmer inafternoon. PLAN MOVING FORWARD: Groups, medications, continue ativan assessment scale INDIVIDUALIZED FALL PREVENTION INTERVENTIONS: Patient-specific fall risk factors per assessment: [current deficits]: independent Assistance [level of assistance required for transfers and ambulation]: Up ad lizzette, low fall risk Supervision [direct monitoring required during toileting and ADLs]: n/a Surveillance [continuous indirect monitoring]: Purposeful rounding, q 15 min safety checks Patient-specific fall prevention interventions for sensory deficits provided, if applicable: n/a CPG GOAL OUTCOME EVALUATION: Goal: Individualization & Mutuality Outcome: Ongoing (Interventions Implemented as Appropriate) 01/01/19 2137 01/02/19 0059 01/02/19 1351 Individualization Patient Specific Preferences -- sometimes my switch just flips and I am the meanest bitch there is -- Patient Specific Goals -- -- get information about lithium Mutuality/Individual Preferences What Anxieties, Fears or Concerns Do You Have About Your Health or Care? I am worried they will try to give me drugs that I don't want to take -- -- What Questions Do You Have About Your Health or Care? none -- -- What Information Would Help Us Give You More Personalized Care? I use light therapy at home -- -- Goal: Fall Prevention-Safe Patient Handling Outcome: Ongoing (Interventions Implemented as Appropriate) 01/02/19 1351 Restraint Interventions Safety Promotion/Fall Prevention fall prevention program maintained;nonskid shoes/slippers when outof bed;safety round/check completed Activity Activity Type up ad lizzette Activity Assistance Provided independent Positioning Body Position independent Daily Care Interventions Self-Care Promotion independence encouraged Calero Fall Risk History of Falling 0 Secondary Diagnosis 15 Ambulatory Aids 0 Intravenous Therapy/Heparin/Saline Lock 0 Gait/Transferring 0 Mental Status 0 Score 15 OTHER Calero Fall Risk Low Goal: Infection Control Outcome: Ongoing (Interventions Implemented as Appropriate) 01/02/19 1351 Coping Strategies Supportive Measures active listening utilized;goal setting facilitated;positive reinforcement provided;self-care encouraged;self-responsibility promoted;verbalization of feelings encouraged Safety Interventions Isolation Precautions standard precautions maintained Infection Prevention environmental surveillance performed;single patient room provided Goal: Discharge Needs Assessment Outcome: Ongoing (Interventions Implemented as Appropriate) 01/02/19 1351 Discharge Needs Assessment Concerns To Be Addressed coping/stress concerns;compliance issue concerns;adjustment to diagnosis/illness concerns;medication concerns;mental health concerns;relationship concerns;substance/tobacco abuse/use concerns Readmission Within The Last 30 Days no previous admission in last 30 days Equipment Needed After Discharge none Current Discharge Risk psychiatric illness;substance use/abuse Discharge Disposition still a patient Current Health Outpatient/Agency/Support Group Needs outpatient psychiatric care (specify) Anticipated Changes Related to Illness none Activity/Self Care Review of Systems Equipment Currently Used at Home none Living Environment Transportation Available family or friend will provide Goal: Interdisciplinary Rounds/Family Conf Outcome: Ongoing (Interventions Implemented as Appropriate) 01/02/19 135 Interdisciplinary Rounds/Family Conf Participants onsite case manager;patient;social work/services;nursing;physician Problem: Coping, Compromised Individual (Adult,Obstetrics,Pediatric) Goal: Effective Coping Patient will demonstrate the desired outcomes by discharge/transition of care. Outcome: Ongoing (Interventions Implemented as Appropriate) 01/02/19 135 Coping, Compromised Individual (Adult,Obstetrics,Pediatric) Effective Coping making progress toward outcome * Plan of Care - Anahi Hunter RN - 01/02/2019 12:16 PM EST MULTIDISCIPLINARY TREATMENT PLAN Todays Date: 01/02/2019 Patient: Isaura Arellano Admit Date: 01/01/2019 8:55 PM CODE STATUS:Full Code Initial date of care plan. __01/02/19_ Update Q7 days Working Diagnosis: Major depressive disorder [F32.9] PATIENT'S REASON FOR HOSPITALIZATION (his or her own words) Worsening mood symptoms and suicidal ideation STRENGTHS STRESSORS TARGET SYMPTOMS 1. Supportive Stop antidepressants Decreased self-care/anhedonia 2. Two dogs Worthlessness, hopeless 3. Isolation GOALS 1 Stabilize target symptoms and improve understanding of illness 2 Work with Patient Access Control Officer to create and implement aftercare plan 3 Medication optimization 4 Groups for education, skill building and support 5 Complete Relapse Plan prior to discharge PHYSICIAN INTERVENTIONS ACTIVITY INTERVENTIONS 1. Continued psychiatric evaluation 1. Wellness Recovery Planning 2. Med management/Brief therapy 2. Therapeutic groups & activities 3. Diagnostic/Medical testing/Labs 3. Patient and family education NURSING INTERVENTIONS PCC & SW INTERVENTIONS 1. Purposeful rounding 1. Facilitate communication with family 2. See Nursing care plan 2. Facilitate communication with providers 3. Wellness Recovery planning 3. Assist with discharge planning The multidisciplinary team reviewed falls prevention plan with me. I have worked with my treatment team and agree with the plan above. PATIENT SIGNATURE DATE: Isaura Arellano PRINT NAME: SIGNATURE: DATE: RESIDENT PHYSICIAN ATTENDING PHYSICIAN Lore Ryan MD NURSING PATIENT SNAKER DRIVING HORSES Anahi Hunter RN THERAPIST OIL WELL CABLE TOOL OPERATOR Lucie Travis [facility] * Initial Assessments - Anahi Hunter RN - 01/02/2019 12:07 PM EST Initial Patient Assessment Anahi Hunter RN reviewed record and discussed patient with Care Team on 01/02/2019. Introduced/reviewed role; services accepted. Isaura Arellano is a 68 y.o. year old female (1950) presenting to [facility] for treatment with Major depressive disorder [F32.9] Anticipated Length Of Stay (If known): unknown Patient/Caregiver Goals of Treatment: stabalize and safety Source of Information: Pt supplied/corraborated, H&P REASON for HOSPITALIZATION: Worsening mood and suicidal ideation Medical/Behavioral Health History: has Non-small cell carcinoma of left lung, stage 1; Abnormal auditory perception; Colon polyp; Depression; Herpes simplex virus (HSV) infection; Hypertension; Lacunar infarction; Major depressive disorder; and Alcohol withdrawal on their problem list. Current treaters: Current Mental Health Prescriber: PCP Current Therapist: none PCP: Aurelia Bobby MD Hospitalizations Within the Past 30 Days: None PERTINENT INFO FROM H & P: Patient reports a long history of depression. She has been experiencing episodes lasting 3-4 days at a time, about once a month of increased mood symptoms. ??Symptoms include depressed mood, long frequent tearful episodes, decreased self care, anhedonia, worthlessness, hopelessness and low energy. ??She will isolate and not leave the home. ??She reports suicidal ideation during these episodes. ??Last night she had SI with plan to hang herself. She reports she googled how to make a noose and then proceeded to make one. ??When asked if she put it around her neck she reports you make it around your neck. ??Last night she tore the house apart looking for her hu brendenand's gun, a 22 caliber rifle with thoughts of shooting herself. ??She denies history of suicide attempt. ??She also reports during these episodes she is easily agitated, annoyed and irrational. ??She will accuse her of having a girlfriend and believes people are talking about her. ??She will feel that she is evil and that her children and dogs do not love her. ??Last night she also had thoughts of killing her by suffocating him with a pillow. ??This is not the first time she has had the thought/ threatened to do it. ADVANCE DIRECTIVES: Information provided as needed HEALTH /PRESCRIPTION COVERAGE: Current Effective Coverage: Payor/Plan Subscr Sex Relation Sub. Ins. ID Effective Group Num 1. [place]ARE - [place]* ISAURA ARELLANO 1950 Female Self [id number] 08/25/[address] 2. MEDICARE - [place]* ISAURA ARELLANO 1950 Female Self [id number] 08/25/[address] Prescription Coverage: Confirmed Preferred Pharmacy: [facility] - [place], [place] - [address] [place] [address] [address] [facility] [id number] Other: (Ex. International Logistics Manager Care, Worker???s Comp., Automobile Liability, etc.) HOME ENVIRONMENT / SOCIAL & FAMILY SUPPORTS/COMMUNITY RESOURCES:(living situation, family constellation, Caregivers, current use & knowledge of community resources, etc.) Extended Emergency Contact Information Primary Emergency Contact: Gagan Arellano Address: [address] [place] [id number] [facility] Relation: Spouse Secondary Emergency Contact: Nubia Garcia Address: [address] [place], [place] [id number] [facility] Mobile Relation: Child PRIMARY CARE PHYSICIAN: Aurelia Bobby MD [address] [facility] [id number] MENTAL HEALTH PRESCRIBER: Aurelia Bobby Current Decision-Making Capacity: (Level of Alertness/Orientation, dementia/ cognitive deficit, if patient is a minor - assess parent/guardian, etc.) Able to consent to or refuse care. Not able to consent to or refuse care. CURRENT PATIENT & FAMILY EDUCATION, COPING NEEDS: (Address patient/family satisfaction with care to date, understanding of current status and plan of care, need for family meeting, need for station repairer, etc.) Safe effective coping skills Functional Status Prior to Admission: Able to perform ADLs/IADLs independently Current Functional Ability: (use of assistive devices, working with PT/OT, etc.) Able to perform ADLs/IADLs independently Anticipated Barriers to Discharge/Special Considerations: (Financial/underinsured, behavioral, lackof needed support/access to community resources, current substance abuse, homelessness, etc.) Potential Needs for Transition of Care: Home Health: No Any special transportation needed at D/C to [address] [place] [phone]? No Rehab/SNF: No New community resources referrals needed? Mental health services Other: PLAN: PCM will continue to monitor progress, follow for continuity of care and assist with transition of care planning while hospitalized. Anaih Hunter RN PAGER: [phone] * Plan of Care - Elizabeth Hassan RN - 01/02/2019 1:14 AM EST Problem: Patient Care Overview Goal: Plan of Care Review Outcome: Ongoing (Interventions Implemented as Appropriate) 01/02/19 0103 Coping/Psychosocial Plan Of Care Reviewed With patient Plan of Care Review Progress improving OUTCOME EVALUATION NOTE: OUTCOME SUMMARY: Pt admitted from ED to room 227. Pt uncooperative with search, irritable sarcastic and swearing at [employer]. Throwing paper and pens. called and demanded he get me out of this f*&%ing place.Apparently he declined and conversation ended. When she was interviewed in her room, her behavior was more appropriate after she was asked to be more respectful and not swear. Interview completed andpt apologized to [employer]. B/p significantly high on admission to unit and pt says she does not have HTN. Vs repeated when MD arrived and it was sl lower. Pt reports she drinks 3 drinks a day and has increased that over the last few weeks, but doesn's know by how much. PLAN MOVING FORWARD: Continue to monitor AAS, moods and behavior, meet with tx team in am and devise a plan, groups and work on coping skills INDIVIDUALIZED FALL PREVENTION INTERVENTIONS: Patient-specific fall risk factors per assessment: [current deficits]: other dx Assistance [level of assistance required for transfers and ambulation]: independent Supervision [direct monitoring required during toileting and ADLs]: none Surveillance [continuous indirect monitoring]: q 15 minute checks, purposeful rounding Patient-specific fall prevention interventions for sensory deficits provided, if applicable: none CPG GOAL OUTCOME EVALUATION: documented in this encounter Plan of Treatment Upcoming Encounters Date Type Department Care Team (Late st Contact Info) Description 09/01/2024 4:30 PM EDT Office Visit Dermatology at [facility] [address] [place] [address] Ruma Echavarria MD [facility] DR ABD[place] [address] documented as of this encounter Procedures Procedure Name Priority Date/Time Associated Diagnosis Comments ECT (WRVU 2.5) 01/08/2019 9:02 AM EST ECT F32.9 TROPONIN STAT 01/07/2019 3:16 PM EST EKG 12-LEAD Routine 01/07/2019 2:53 PM EST Hypertension, unspecified type ECT (WRVU 2.5) 01/07/2019 8:01 AM EST ECT F32.9 EKG 12-LEAD Routine 01/05/2019 5:22 PM EST Depression, unspecified depression type Hypertension, unspecified type documented in this encounter Results * Troponin (01/07/2019 3:16 PM EST) Troponin-T <0.01 0.00 - 0.00 ng/mL [facility] Comment: The 99th percentile for Troponin T is less than 0.01 ng/mL, any detectable cTnT concentration using this assay should be considered elevated. According to the third universal definition of myocardial infarction the following criteria with a clinical presentation consistent with acute myocardial ischemia meets the diagnosis for a myocardial infarction (PR). Detection of a rise and/or fall of cTnT, with at least one value greater than the 99th percentile (> or = 0.01) and with at least one of the following ?? Symptoms of ischemia ?? New or presumed new significant MV-nhbpbtd-T wave (ST-T) changes or new left bundle branch block (LBBB) ?? Development of pathologic Q waves in the ECG ?? Imaging evidence of new loss of viable myocardium or new regional wall motion abnormality ?? Identification of an intracoronary thrombus by angiography or autopsy Samples for cTnT testing should be obtained serially upon first assessment and again 3 to 6 hours later. If the clinical suspicion is high and previous samples have been negative an additional sample may be indicated. Reference: Third [place] Definition of Myocardial Infarction. Journal of the [place] [employer] 2012;60:1581-98 Blood specimen (specimen) 01/07/2019 3:16 PM EST 01/07/2019 3:30 PM EST Narrative Resulting Agency Comment Spec In Lab Lore Ryan MD CHEMISTRY ORDERABLES Performing Organization Address [facility] Co de Phone Number [facility] [place] [phone] * EKG 12 Lead (01/07/2019 2:53 PM EST) Ventricular rate 55 BPM MUSE SYSTEM Atrial Rate 55 BPM MUSE SYSTEM P-R Interval 148 ms MUSE SYSTEM QRS Duration 90 ms MUSE SYSTEM Q-T Interval 420 ms MUSE SYSTEM QTC Calculated (Bezet) 401 ms MUSE SYSTEM Calculated P Morven 55 degrees MUSE SYSTEM Calculated R Morven 60 degrees MUSE SYSTEM Calculated T Morven 44 degrees MUSE SYSTEM INTERPRETATION Sinus bradycardia Possible Left atrial enlargement Left ventricular hypertrophy Nonspecfic ST segment changes Abnormal ECG When compared with ECG of 05-JAN-2019 17:22, No significant change was found Confirmed by MD SWEET SALVATORE ([id number]) on 01/08/2019 8:32:13 AM MUSE SYSTEM 01/07/2019 2:53 PM EST 01/08/2019 8:32 AM EST Lore Ryan MD ECG ORDERABLES Performing Organization Address [facility] Co de Phone Number MUSE SYSTEM * EKG 12 Lead (01/05/2019 5:22 PM EST) Ventricular rate 61 BPM MUSE SYSTEM Atrial Rate 61 BPM MUSE SYSTEM P-R Interval 134 ms MUSE SYSTEM QRS Duration 88 ms MUSE SYSTEM Q-T Interval 394 ms MUSE SYSTEM QTC Calculated (Bezet) 396 ms MUSE SYSTEM Calculated P Morven 60 degrees MUSE SYSTEM Calculated R Morven 68 degrees MUSE SYSTEM Calculated T Morven 39 degrees MUSE SYSTEM INTERPRETATION Normal sinus rhythm Left ventricular hypertrophy Nonspecific ST abnormality consider ischemia Abnormal ECG No previous ECGs available Confirmed by MD HERNÁN, LEONOR ([id number]) on 01/05/2019 6:21:55 PM MUSE SYSTEM 01/05/2019 5:22 PM EST 01/05/2019 6:21 PM EST Lore Ryan MD ECG ORDERABLES MUSE SYSTEM documented in this encounter Visit Diagnoses Diagnosis Major depressive disorder- Primary Major depressive disorder, single episode, unspecified Depression, unspecified depression type Hypertension, unspecified type Alcohol withdrawal documented in this encounter Admitting Diagnoses Diagnosis Major depressive disorder Major depressive disorder, single episode, unspecified documented in this encounter Administered Medications Inactive Administered Medications - up to 3 most recent administrations Medication Order MAR Action Action Date Dose Rate Site acetaminophen (TYLENOL) tablet 650 mg 650 mg, Oral, EVERY 8 HOURS PRN, Starting on Sat01/01/19 at 2251, Until Sat01/07/19 at 1715, Pain, Administer for pain (Not to exceed 4000 mg per 24 hours), Routine Given 01/07/2019 9:53 AM EST 650 mg acetaminophen (TYLENOL) tablet 650 mg 650 mg, Oral, EVERY 6 HOURS PRN, Starting on Sat01/07/19 at 1730, Until Sat01/14/19 at 2005, Pain, Administer for pain (Not to exceed 4000 mg per 24 hours), Routine Given 01/07/2019 5:36 PM EST 650 mg clonazePAM (KlonoPIN) tablet 0.5 mg 0.5 mg, Oral, 2 TIMES DAILY PRN, Starting on Sat01/02/19 at 1832, Until Sat01/14/19 at 2005, Anxiety, or irritability, Please hold on evenings before ECT, Routine Given 01/14/2019 8:16 AM EST 0.5 mg Given 01/13/2019 8:25 AM EST 0.5 mg Given 01/12/2019 2:26 PM EST 0.5 mg clonazePAM (KlonoPIN) tablet 1 mg 1 mg, Oral, NIGHTLY, First dose on Sat01/02/19 at 0000, Until Discontinued, Please hold on evenings before ECT, Routine Given 01/13/2019 8:29 PM EST 1 mg Given 01/12/2019 8:29 PM EST 1 mg Given 01/11/2019 8:22 PM EST 1 mg hydrOXYzine (ATARAX) tablet 25 mg 25 mg, Oral, 2 TIMES DAILY PRN, Starting on 01/10/19 at 1113, Until Sat01/14/19 at 2005, Anxiety, Routine Given 01/14/2019 12:25 PM EST 25 mg Given 01/10/2019 11:19 AM EST 25 mg hydrOXYzine (ATARAX) tablet 50 mg 50 mg, Oral, NIGHTLY PRN, Starting on 01/05/19 at 1222, Until Sat01/14/19 at 2005, Anxiety, sleeplessness, Routine Given 01/13/2019 10:18 PM EST 50 mg Given 01/12/2019 8:29 PM EST 50 mg Given 01/11/2019 8:21 PM EST 50 mg ibuprofen (ADVIL;MOTRIN) tablet 600 mg 600 mg, Oral, EVERY 6 HOURS PRN, Starting on Sat01/07/19 at 1219, Until Sat01/14/19 at 2005, Pain, Administer orally with milk or food to minimize GI irritation. Maximum dose of 3200 mg from all sources in 24 hours, Routine Given 01/14/2019 10:21 AM EST 600 mg Given 01/14/2019 2:36 AM EST 600 mg Given 01/13/2019 8:29 PM EST 600 mg lamoTRIgine (LaMICtal) tablet 25 mg 25 mg, Oral, DAILY, First dose on Sat01/09/19 at 1600, Until Discontinued, Routine Given 01/14/2019 8:15 AM EST 25 mg Given 01/13/2019 8:25 AM EST 25 mg Given 01/12/2019 8:24 AM EST 25 mg levothyroxine (SYNTHROID) tablet 50 mcg 50 mcg, Oral, EVERY MORNING, First dose on Sat01/02/19 at 0600, Until Discontinued, Give at 530am, Routine Given 01/14/2019 6:23 AM EST 50 mcg Given 01/13/2019 7:05 AM EST 50 mcg Given 01/12/2019 6:21 AM EST 50 mcg lisdexamfetamine (VYVANSE) capsule 30 mg 30 mg, Oral, DAILY, First dose on Sat01/09/19 at 1115, Until Discontinued, Routine Given 01/14/2019 8:15 AM EST 30 mg Given 01/13/2019 8:24 AM EST 30 mg Given 01/12/2019 8:20 AM EST 30 mg LORazepam (ATIVAN) tablet 1-3 mg 1-3 mg, Oral, EVERY 4 HOURS PRN, Starting on Sat01/02/19 at 0857, Until Sat01/05/19 at 0856, alcohol/benzodiazepine withdrawal- uncomplicated, Per assessment scale for uncomplicated withdrawal from alcohol. May give IV if unable to take PO. May give IM if no IV access. Medication should be administered at least every 4 hours: For withdrawal score of 5-7, give 1 mg PO or IV or IM: administer every 4 hours. For withdrawal score of 8-10, give 2 mg PO or IV or IM: administer every 4 hours. For withdrawal score of 11 or greater, give 3 mg PO or IV or IM: administer every 4 hours. + If withdrawal score remains 11 or greater for two consecutive assessment periods, call provider. + If patient has had seizures in previous 8 hours and has gone 4 hours without medications, give 3 mg PO or IV or IM., Routine Given 01/04/2019 10:46 AM EST 1 mg Given 01/02/2019 12:03 PM EST 2 mg LORazepam (ATIVAN) tablet 2 mg 2 mg, Oral, EVERY 8 HOURS, 6 doses, First dose on Sat01/02/19 at 0000, Last dose on Sat01/03/19 at 1600, May give IV if unable to take PO. May give IM if no IV access., Routine Given 01/02/2019 8:38 AM EST 2 mg Given 01/02/2019 12:27 AM EST 2 mg LORazepam (ATIVAN) tablet 2 mg 2 mg, Oral, 2 TIMES DAILY PRN, Starting on Sat01/03/19 at 1427, Until Sat01/06/19 at 1348, agitation, Routine Given 01/06/2019 10:41 AM EST 2 mg Given 01/05/2019 10:44 AM EST 2 mg Given 01/05/2019 2:39 AM EST 2 mg melatonin tablet 3 mg 3 mg, Oral, NIGHTLY PRN, Starting on Sat01/05/19 at 1222, Until Sat01/14/19 at 2005, sleeplessness, Routine nicotine polacrilex (NICORETTE) gum 2 mg 2 mg, Buccal, EVERY 2 HOURS PRN, Starting on Sat01/02/19 at 0625, Until Sat01/14/19 at 2005, Smoking cessation, Chew gum slowly. Do not swallow. Maximum of 48 mg/day., Routine Given 01/06/2019 11:18 AM EST 2 m g Given 01/05/2019 6:09 PM EST 2 mg Given 01/05/2019 1:13 PM EST 2 mg ondansetron (ZOFRAN-ODT) oral disintegrating tablet 4 mg 4 mg, Oral, EVERY 8 HOURS PRN, Starting on Sat01/07/19 at 1108, Until Sat01/14/19 at 2005, Nausea, Routine Given 01/08/2019 10:55 AM EST 4 mg Given 01/07/2019 11:20 AM EST 4 mg pantoprazole (PROTONIX) tablet 20 mg 20 mg, Oral, DAILY, First dose on Sat01/09/19 at 0915, Until Discontinued, DO NOT CRUSH OR OPEN Given 01/13/2019 8:27 AM EST 20 mg prazosin (MINIPRESS) capsule 1 mg 1 mg, Oral, NIGHTLY, First dose on Sat01/09/19 at 2100, Until Discontinued, Routine propranolol (INDERAL) tablet 10 mg 10 mg, Oral, 2 TIMES DAILY PRN, Starting on Halle 01/01/19 at 2254, Until Sat01/14/19 at 2005, anxiety, Routine Given 01/13/2019 8:25 AM EST 10 mg Given 01/12/2019 8:22 AM EST 10 mg Given 01/11/2019 2:30 PM EST 10 mg psyllium (Aspartame) 1 packet 1 packet, Oral, DAILY PRN, Starting on 01/04/19 at 0954, Until Sat01/14/19 at 2005, GI, Routine Given 01/08/2019 8:27 PM EST 1 packet Given 01/07/2019 8:15 PM EST 1 packet Given 01/06/2019 9:00 AM EST 1 packet risperiDONE (RisperDAL M-TABS) disintegrating tablet 2 mg 2 mg, Oral, 2 TIMES DAILY PRN, Starting on 01/03/19 at 1425, Until Sat01/14/19 at 2005, Agitation, Routine senna (SENOKOT) tablet 17.2 mg 17.2 mg, Oral, 2 TIMES DAILY PRN, Starting on 01/06/19 at 1722, Until Sat01/14/19 at 2005, Constipation, Routine Given 01/08/2019 8:27 PM EST 17.2 mg Given 01/07/2019 8:14 PM EST 17.2 mg Given 01/06/2019 5:47 PM EST 17.2 mg sodium chloride (OCEAN) 0.65 % nasal spray 1 spray 1 spray, Each Nare, 2 TIMES DAILY PRN, Starting on Halle 01/01/19 at 2253, Until Sat01/14/19 at 2005, Congestion, Routine traMADol (ULTRAM) tablet 50 mg 50 mg, Oral, EVERY 6 HOURS PRN, Starting on Sat01/07/19 at 1224, Until Sat01/14/19 at 2005, Pain, Please tylenol first, Routine Given 01/14/2019 12:25 PM EST 5 0 mg Given 01/13/2019 6:18 PM EST 50 mg Given 01/13/2019 12:25 PM EST 50 mg traZODone (DESYREL) tablet 50 mg 50 mg, Oral, NIGHTLY PRN, Starting on Sat01/12/19 at 1042, Until Sat01/14/19 at 2005, Sleep, Routine Given 01/12/2019 8:29 PM EST 50 mg documented in this encounter Active and Recently Administered Medications Times are shown in EST. Scheduled Medication Order 01/12/2019 01/13/2019 01/14/2019 clonazePAM (KlonoPIN) tablet 1 mg 1 mg, Oral, NIGHTLY, First dose on Sat01/02/19 at 0000, Until Discontinued, Please hold on evenings before ECT, Routine 2028 (Given - Provider: Deandra Aguilar RN) 2028 (Given - Provider: Giovanny Bob, THAIS) lamoTRIgine (LaMICtal) tablet 25 mg 25 mg, Oral, DAILY, First dose on Sat01/09/19 at 1600, Until Discontinued, Routine 0824 (Given - Provider: Concepcion Samuel RN) 0825 (Given - Provider: Kim Espinoza RN) 0815 (Given - Provider: Brigid Murguia RN) levothyroxine (SYNTHROID) tablet 50 mcg 50 mcg, Oral, EVERY MORNING, First dose on Sat01/02/19 at 0600, Until Discontinued, Give at 530am, Routine 0621 (Given - Provider: Deandra Aguilar RN) 0705 (Given - Provider: Deandra Aguilar RN) 0623 (Given - Provider: Giovanny Bob RN) lisdexamfetamine (VYVANSE) capsule 30 mg 30 mg, Oral, DAILY, First dose on Sat01/09/19 at 1115, Until Discontinued, Routine 0820 (Given - Provider: Concepcion Samuel, RN) 0824 (Given - Provider: Kim Espinoza, THAIS) 0815 (Given - Provider: Brigid Murguia, THAIS) pantoprazole (PROTONIX) tablet 20 mg (CANCELED) 20 mg, Oral, DAILY, First dose on Sat01/09/19 at 0915, Until Discontinued, DO NOT CRUSH OR OPEN 0822 (Not Given - Provider: Concepcion Samuel RN - Reason: Patient/family refused) 0827 (Given - Provider: Kim Espinoza, THAIS) 0815 (Not Given - Provider: Brigid Murguia RN - Reason: Patient/family refused) prazosin (MINIPRESS) capsule 1 mg 1 mg, Oral, NIGHTLY, First dose on Sat01/09/19 at 2100, Until Discontinued, Routine 2100 (Not Given - Provider: Deandra Aguilar RN - Reason: Patient/family refused) 2100 (Not Given - Provider: Giovanny Bob RN - Reason: Patient/family refused) PRN Medication Order 01/12/2019 01/13/2019 01/14/2019 acetaminophen (TYLENOL) tablet 650 mg 650 mg, Oral, EVERY 6 HOURS PRN, Starting on Sat01/07/19 at 1730, Until Sat01/14/19 at 2005, Pain, Administer for pain (Not to exceed 4000 mg per 24 hours), Routine clonazePAM (KlonoPIN) tablet 0.5 mg 0.5 mg, Oral, 2 TIMES DAILY PRN, Starting on Sat01/02/19 at 1832, Until Sat01/14/19 at 2005, Anxiety, or irritability, Please hold on evenings before ECT, Routine 0749 (Given - Provider: Concepcion Samuel RN)1426 (Given - Provider: Rosa Jimenez RN) 0825 (Given - Provider: Kim Espinoza, THAIS) 0816 (Given - Provider: Brigid Murguia RN) hydrOXYzine (ATARAX) tablet 25 mg 25 mg, Oral, 2 TIMES DAILY PRN, Starting on 01/10/19 at 1113, Until Sat01/14/19 at 2004, Anxiety, Routine 0621 (Not Given - Provider: Deandra Aguilar RN - Reason: See comment - Comment: will give in 30 min, pt just took Synthroid) 1225 (Given - Provider: Brigid Murguia, THAIS) hydrOXYzine (ATARAX) tablet 50 mg 50 mg, Oral, NIGHTLY PRN, Starting on 01/05/19 at 1222, Until Sat01/14/19 at 2004, Anxiety, sleeplessness, Routine 2028 (Given - Provider: Deandra Aguilar, RN) 2218 (Given - Provider: Giovanny Bob, THAIS) ibuprofen (ADVIL;MOTRIN) tablet 600 mg 600 mg, Oral, EVERY 6 HOURS PRN, Starting on Sat01/07/19 at 1219, Until Sat01/14/19 at 2004, Pain, Administer orally with milk or food to minimize GI irritation. Maximum dose of 3200 mg from all sources in 24 hours, Routine 1718 (Given - Provider: Concepcion Samuel RN) 0834 (Given - Provider: Kim Espinoza RN)2028 (Given - Provider: Giovanny Bob, THAIS) 0236 (Given - Provider: Giovanny Bob, THAIS)1021 (Given - Provider: Brigid Murguia, THAIS) melatonin tablet 3 mg 3 mg, Oral, NIGHTLY PRN, Starting on 01/05/19 at 1222, Until Sat01/14/19 at 2004, sleeplessness, Routine nicotine polacrilex (NICORETTE) gum 2 mg 2 mg, Buccal, EVERY 2 HOURS PRN, Starting on Sat01/02/19 at 0625, Until Sat01/14/19 at 2005, Smoking cessation, Chew gum slowly. Do not swallow. Maximum of 48 mg/day., Routine ondansetron (ZOFRAN-ODT) oral disintegrating tablet 4 mg 4 mg, Oral, EVERY 8 HOURS PRN, Starting on Sat01/07/19 at 1108, Until Sat01/14/19 at 2005, Nausea, Routine propranolol (INDERAL) tablet 10 mg 10 mg, Oral, 2 TIMES DAILY PRN, Starting on Halle 01/01/19 at 2254, Until Sat01/14/19 at 2005, anxiety, Routine 0822 (Given - Provider: Concepcion Samuel, THAIS) 0825 (Given - Provider: Kim Espinoza, THAIS) psyllium (Aspartame) 1 packet 1 packet, Oral, DAILY PRN, Starting on 01/04/19 at 0954, Until Sat01/14/19 at 2004, GI, Routine risperiDONE (RisperDAL M-TABS) disintegrating tablet 2 mg 2 mg, Oral, 2 TIMES DAILY PRN, Starting on 01/03/19 at 1425, Until Sat01/14/19 at 2005, Agitation, Routine senna (SENOKOT) tablet 17.2 mg 17.2 mg, Oral, 2 TIMES DAILY PRN, Starting on 01/06/19 at 1722, Until Sat01/14/19 at 2005, Constipation, Routine sodium chloride (OCEAN) 0.65 % nasal spray 1 spray 1 spray, Each Nare, 2 TIMES DAILY PRN, Starting on Halle 01/01/19 at 2253, Until Sat01/14/19 at 2005, Congestion, Routine traMADol (ULTRAM) tablet 50 mg 50 mg, Oral, EVERY 6 HOURS PRN, Starting on Sat01/07/19 at 1224, Until Sat01/14/19 at 2004, Pain, Please tylenol first, Routine 0107 (Given - Provider: Deandra Aguilar RN)0826 (Given - Provider: Concepcion Samuel RN)1516 (Given - Provider: Concepcion Samuel RN)202 (Given - Provider: Deandra Aguilar RN) 122 (Given - Provider: Brigid Murguia, THAIS)181 (Given - Provider: Kim Espinoza, THAIS) 1225 (Given - Provider: Brigid Murguia, THAIS) traZODone (DESYREL) tablet 50 mg 50 mg, Oral, NIGHTLY PRN, Starting on 01/12/19 at 1042, Until Sat01/14/19 at 2005, Sleep, Routine 2028 (Given - Provider: Deandra Aguilar RN) documented in this encounter Care Teams Traffic Personnel Supervisor Relationship Specialty Start Date End Date Aurelia Bobby MD [address] [place] [address] PCP - General 08/31/14 01/23/24 documented as of this encounter
--- OUTSIDE RECORDS SUMMARY | 2024-07-15 14:29 | XMS_ITS | Encounter Summary ---
Author Organization [facility] [place] [address] Care Team Providers Care Weight Loss Counselor Name Role Phone Aurelia Bobby MD Primary Care Provider [phone] Encounter Details Date Type Department Care Team (Late st Contact Info) Description 11/26/2019 Telephone Hematology [place] [id number] Elsie Cruz, MICHAEL[facility] DR HEMATOLOGY-[place] [address] Social History Tobacco Use Types Packs/Day Years [...] encounter Miscellaneous Notes * Telephone Encounter - Elsie Cruz APRN - 11/26/2019 4:29 PM EST Message received from roving carrier: Coughing, congestion, Temp over 99 nice 10/25. 3 courses of Antibiotics and 1 course of steroids. Inhalers Advair 500/50 and Albuterol inhaler. Feeling horrible and very exhausted. Phone is [phone] Got treated at [facility]. ??She is having Chest xray images sent over. ?? Pt with hx stage 1B lung adenocarcinoma [id number], s/p JOHNNY lobectomy on 08/09/2014. Chest CT from end of Aug 2019 without evidence of disease progression. She developed respiratory sx in the beg of October. Productive cough with either white/de paz/yellowsputum. Some pink streaking, no truman blood. Sputum is difficult to expectorate. The cough is starting to improve. No SOB at rest. There is dyspnea with moderate exertion. Went cross-country skiing the past 2 days and had to take a break every 10 min, which is atypical for her, but she was able to go a couple miles each day. Intermittent chest discomfort on the right side, reproducible with palpation. No temp of 100.4 or greater (Tmax 100.1). Energy level has been poor for the past month. Appetite is decreased. She overall feels that the resp sx are starting to improve but the fatigue is persistent. Has been treated with augmentin but couldn't tolerate due to GI SE so she stopped. Then treated with amoxicillin and azithromycin, and a course of prednisone 40 mg daily for approx 5 days. At this point she is using inhalers. CXR from [facility] without evidence of PNA, effusions. Discussed that this is likely a viral respiratory infection and less likely related to her hx of malignancy given chest CT from 09/22/19 was without disease recurrence and her sx are improving. Anticipate that her sx will continue to improve with conservative therapy although she should call back if sx worsen or fail to improve. documented in this encounter Plan of Treatment Upcoming Encounters Date Type Department Care Team (Late st Contact Info) Description 09/01/2024 4:30 PM EDT Office Visit Dermatology at [facility] [address] [place] [address] Ruma Echavarria MD [facility] [address] [address] documented as of this encounter Visit Diagnoses Not on filedocumented in this encounter Care Teams Weight Loss Counselor Relationship Specialty Start Date End Date Aurelia Bobby MD [address] [facility] [address] [place] [address] PCP - General 08/31/14 01/23/24 documented as of this encounter
--- OUTSIDE RECORDS SUMMARY | 2024-07-15 14:29 | XMS_ITS | Encounter Summary ---
[place] [address] Care Team Providers Care Chief Of Vital Statistics Name Role Phone Aurelia Bobby MD Primary Care Provider Reason for Visit * Auth/Cert Specialty Diagnoses / Procedures Referred By Bk de leon Referred To Contact Diagnoses Major depressive disorder UNSPECIFIED MOOD D/O Referral ID Status Reason Start Date Expiration Date Visits Re quested Visits Authorized [id number] 1 1 Encounter Details Date Type Department Care Team (Late st Contact Info) Description 01/07/2019 8:48 AM EST - 01/07/2019 9:04 AM EST Surgery [place] [address] Nadja Be MD [address] [facility] [place] [address] ECT (WRVU 2.5) Social History Tobacco Use Types Packs/Day Years [...] Sign Reading Time Taken Comments Blood Pressure 132/69 01/07/2019 8:41 AM EST Pulse 95 01/07/2019 8:41 AM EST Temperature 36.9 ??C (98.4 ??F) 01/07/2019 6:19 AM ES T Respiratory Rate 20 01/07/2019 8:41 AM EST Oxygen Saturation 94% 01/07/2019 8:41 AM EST Inhaled Oxygen Concentration - - Weight 53.6 kg (118 lb 3.2 oz) 01/04/2019 7:00 A M EST Height 162.6 cm (5' 4.02) 01/01/2019 8:59 PM ES T Body Mass Index 20.59 01/01/2019 8:59 PM EST documented in this encounter Discharge Summaries * Lore Ryan MD - 01/14/2019 5:00 PM EST Images from the original note were not included. Discharge Summary Patient Name: Isaura Arellano Patient Age: 68 y.o. Language: Bahraini Race: White Ethnicity: Not nor Admit date: [...] Follow-up Providers/Appointments: General Instructions After Care Plan [facility] Intake appointment 1 1/2 hours Rafael Jhaveri January 22, 2018 at 1:00PM [address], [place] [address] PCP Aurelia Bobby MD [id number] Advance Care [...] relating tothis hospitalization, please contact your patient resident caregiver, Barby Reveles RN, through the [facility] Filterer . Issues after hours and on weekends will be handled by the vice president of software engineering on-call who can be reached through the [facility] Filterer. Medication Instructions Continue to take all of the medications as instructed. Any medication changes will be addressed at your next outpatient appointment with the individual who prescribes your medications. Future Appointments and Orders Future Appointments and Orders Future Appointments Provider Department Dept Phone 01/21/2019 1:15 PM Elsie Cruz, MICHAELLE; Tres Graham MD Hematology and Oncology at [place] Arrive at: Branch Service Representative Area [phone] Reason for Hospitalization: safety, stabilization and medication [...] find it helpful as she and the cinder worker had a verbal altercation. ?? Currently, the [...] provided to the patient in her After VisitSsurgical specialty center. Patient was also provided with emergency contact [...] HA1C Vit Lvls: No results found for: [id number], SFOLATE UA: No results found for: GLUCOSEU, [...] home Primary Care Physician: Aurelia Bobby MD [phone] Special Physician Instructions: Isaura was admitted to [...] any other decline in your overall condition. [facility] Emergency Services: [facility] [phone] [facility] Emergency Services: [phone] [facility] Central Access Services: [phone] [facility] Main Line: [phone] Activity level: no restrictions from psychiatry Diet: [...] Provider Contact Information: Emergency Services (Crisis Line): [phone] [facility] Psychiatric [facility]: [phone] Hospital Main Line: [phone] documented in this encounter Discharge Instructions * Discharge Instructions* Barby Reveles RN - 01/15/2019 2:06 PM EST [facility] Care Plan [facility] Intake appointment 1 1/2 hours Rafael Jhaveri January 22, 2018 at 1:00PM [address] [place] [phone] PCP Aurelia Bobby MD Patient to call [...] relating tothis hospitalization, please contact your patient resident caregiver, Barby Reveles RN, through the [facility] Filterer . Issues after hours and on weekends will be handled by the vice president of software engineering on-call who can be reached through the [facility] Filterer. Medication Instructions Continue to take all of [...] HA1C Vit Lvls: No results found for: [id number], SFOLATE UA: No results found for: GLUCOSEU, [...] home Primary Care Physician: Aurelia Bobby MD [phone] Special Physician Instructions: Isaura was admitted to [...] any other decline in your overall condition. [facility] Emergency Services: [facility] [phone] [facility] Emergency Services: [phone] [facility] Central Access Services: [phone] [facility] Main Line: [phone] Activity level: no restrictions from psychiatry Diet: [...] At what time? 1700 * Salima Perez [facility] - 01/14/2019 1:59 PM EST Inpatient Daily Group Note Group: Open discussion: check-in and discussion how to manage anxiety, find your [place], figure out triggers and set short-term and long-term goals. Attendance: Present Behavior: Relevant Therapeutic Work Observed: Moderate Mood: Calm Notes: Patient engaged and discussed how yoga and presybeterian has helped. NEYMAR MOYA, MS 01/14/2019 Inpatient [...] rate and normal rhythm ? Language:??fluent in panamanian ? Mood:??good ? Affect:??calm and cooperative and [...] level of functioning ? Insight:??limited ? Judgment:??limited Venus Suicide Risk Scale (most recently completed): Wish [...] some intention of acting on them?: Yes (02/07/19 2124) Suicidal Intent with Specific Plan: Have you [...] INR Thyroid: No results found for: TSH, N8INDAY, TT4 Lipids and HgbA1C: No results found for: CHLPL, HDL, CHOLHDL, LDLCHOL, LDLDIRECT, TRIG No results found for: HA1C Vit Lvls: No results found for: [id number], SFOLATE UA: No results found for: GLUCOSEU, [...] mental health prescriber near her home in [place] Current Therapist in process of connecting patient [...] coordinating discharge for this patient and included zdgw-ar-dhmkniirvkwpa and exam, explanation of after visit instructions [...] Notes: Patient engaged actively. NEYMAR MOYA MS 01/13/2019 Inpatient Daily Group Note Group: [...] Pt was quiet though attentive. SALIMA PEREZ, [facility] 01/13/2019 Patient attended the following activities: ____Walk [...] leave him after she is discharged from [facility] -On interview today, patient states that she [...] rate and normal rhythm ? Language:??fluent in panamanian ? Mood:??Good. ? Affect:??calm and cooperative and [...] level of functioning ? Insight:??limited ? Judgment:??limited Venus Suicide Risk Scale (most recently completed): Wish [...] INR Thyroid: No results found for: TSH, C7AEHHC, TT4 Lipids and HgbA1C: No results found for: CHLPL, HDL, CHOLHDL, LDLCHOL, LDLDIRECT, TRIG No results found for: HA1C Vit Lvls: No results found for: [id number], SFOLATE UA: No results found for: GLUCOSEU, [...] emergency admission paperwork completed and faxed to [facility] on 01/10/2019 given she was demanding to [...] mental health prescriber near her home in [place] Current Therapist in process of connecting patient [...] By: Lore Ryan MD 01/13/2019 * Sanjuanita Ruizte C - 01/12/2019 1:09 PM EST Addendum note: [...] anytime about Isaura especially as DC nears. [phone] cell, PCP Dr. Bobby. I shared this information with the patient 3 times throughout the day and she expressed ongoing desire to leave, raising her voice at me, pointing at me and yelling if you were in my shoes for 5 minutes you would understand, rolling her eyes and sharing that her rn integrated was coming this afternoon and the staff [...] team. Currently is RTU status, waiting transferto [facility]. Will continue to assess status and ability [...] impacting her mood Interval History: (,,4) Narrative: Isaura initiated medications on Saturday and [...] rate and normal rhythm ? Language:??fluent in panamanian ? Mood:??better. ? Affect:??calm and cooperative and [...] level of functioning ? Insight:??limited ? Judgment:??limited Venus Suicide Risk Scale (most recently completed): Wish [...] INR Thyroid: No results found for: TSH, [id number], TT4 Lipids and HgbA1C: No results found for: CHLPL, HDL, CHOLHDL, LDLCHOL, LDLDIRECT, TRIG No results found for: HA1C Vit Lvls: No results found for: [id number], SFOLATE UA: No results found for: GLUCOSEU, [...] emergency admission paperwork completed and faxed to [facility] on 01/10/2019 given she was demanding to [...] medications. Also met with and explained the [facility] emergency admission process. Per nursing report - [...] rate and normal rhythm ? Language:??fluent in panamanian ? Mood:??I'm here. ? Affect:??calm and cooperative [...] level of functioning ? Insight:??limited ? Judgment:??limited Venus Suicide Risk Scale (most recently completed): Wish [...] anything to end your life?: No (01/11/19 0820) Current Medications: Scheduled: ??? prazosin 1 mg [...] INR Thyroid: No results found for: TSH, [id number], TT4 Lipids and HgbA1C: No results found for: CHLPL, HDL, CHOLHDL, LDLCHOL, LDLDIRECT, TRIG No results found for: HA1C Vit Lvls: No results found for: [id number], SFOLATE UA: No results found for: GLUCOSEU, [...] emergency admission paperwork completed and faxed to [facility] on 01/10/2019 given she was demanding to [...] rate and normal rhythm ? Language:??fluent in panamanian ? Mood:??Not happy to be here. I'm [...] level of functioning ? Insight:??limited ? Judgment:??limited Venus Suicide Risk Scale (most recently completed): Wish [...] INR Thyroid: No results found for: TSH, D8IBVEA, TT4 Lipids and HgbA1C: No results found for: CHLPL, HDL, CHOLHDL, LDLCHOL, LDLDIRECT, TRIG No results found for: HA1C Vit Lvls: No results found for: [id number], SFOLATE UA: No results found for: GLUCOSEU, [...] emergency admission paperwork completed and faxed to [facility] today given she was demanding to leave [...] Signed By: Austin Yu MD 01/10/2019 * Salima Aguila - 01/10/2019 10:51 AM EST Inpatient Daily [...] Discussed a referral to Dr. Hickey at [facility] since pt does not think she can qualify for services at [facility]. Pt is aware that she would [...] rate and normal rhythm ? Language:??fluent in panamanian ? Mood:??angry ? Affect:??mood-congruent ? Thought Process:??linear [...] level of functioning ? Insight:??limited ? Judgment:??limited Venus Suicide Risk Scale (most recently completed): Wish [...] INR Thyroid: No results found for: TSH, [id number], TT4 Lipids and HgbA1C: No results found for: CHLPL, HDL, CHOLHDL, LDLCHOL, LDLDIRECT, TRIG No results found for: HA1C Vit Lvls: No results found for: [id number], SFOLATE UA: No results found for: GLUCOSEU, [...] and normal rhythm ? Language: fluent in panamanian ? Mood: focused on the pain in [...] functioning ? Insight: limited ? Judgment: limited Venus Suicide Risk Scale (most recently completed): Wish to be : Have you wished you were or wished you could go to sleep and not wake up?: No(01/02/19 0900) Suicidal Thoughts: Have you had any actual thoughts of killing yourself?: No (01/08/19 1000) Suicidal Thoughts with Method (without Specific Plan [...] do anything to end your life?: No (01/08/19 1000) Current Medications: Scheduled: ??? levothyroxine 50 mcg [...] HA1C Vit Lvls: No results found for: [id number], SFOLATE UA: No results found for: GLUCOSEU, [...] would be helpful or (3) IEA to [facility] as she does not have the capacity [...] patient's condition and/or diagnostic study. * Neymar Moya, MS - 01/08/2019 10:52 AM EST Inpatient Daily [...] room on stretcher accompanied by transpo and associate of science in nursing * Giovanny Bob, RN - 01/08/2019 1:19 [...] pt went back to bed. * Neymar Moya, MS - 01/07/2019 11:50 AM EST Inpatient Daily Group Note Group: Goals: Reviewed rules and expectations, daily schedule, patients' progress and goals and read daily text. Notes: Patient at ECT. Plan to invite to groups after lunch. NEYMAR MOYA, MS 01/07/2019 * Desiree Ruiz - 01/07/2019 [...] and normal rhythm ?? Language: fluent in panamanian ?? Mood: focused on the pain in [...] functioning ?? Insight: limited ?? Judgment: limited Venus Suicide Risk Scale (most recently completed): Wish [...] HA1C Vit Lvls: No results found for: [id number], SFOLATE UA: No results found for: GLUCOSEU, [...] inbetter mood and later apologized to this contract technical writer. * Neymar Moya, MS - 01/06/2019 2:21 [...] Notes: Patient engaged actively. NEYMAR MOYA, MS 01/06/2019 Patient attended the following activities: ____Walk __x__Workshop facilitated by PT/OT exercise and stretching group ____Pet visit Additional pertinent information: 5:30Pm individual check-in regarding wellness plan. Patient declined group and stated that she is starting ECT tomorrow and is not in shape to start the plan today. * Angy Lucie Maik, AIRCONDITIONING PLANT OPERATOR - 01/06/2019 9:56 AM EST OFFICE OF CARE MANAGEMENT PSYCHOSOCIAL ASSESSMENT Present at Interview: Patient Date: January 06, 2019 1. Referral request and/or presenting problem(s): Patient is a 68 year old MWF, who presents at [facility] to address her worsening mood symptoms, increasing [...] Remaining siblings are Keena age 75 in [place]., Casey age 73 and Vicky age 72 in [place]. Patient has minimal contact with Keena, no contact with Casey and visits Vicky (in a detention) when she can. Patient was born and raised in [place] and described childhood as crazy place. Father [...] spiritual support: , friends, not active in restoration. 6. 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 Describes both roepye-qf-iwncsd including the thoughts of wanting to murder [...] for the past 168 hrs: Weight 01/04/19 07 53.6 kg (118 lb 3.2 oz) 01/01/192058 53.5 kg (118 lb) Musculoskeletal System: normal gait and balance, ambulates independently, no atrophy, no abnormal movements and no stiffness Mental Status Exam: ?? Appearance: age appropriate and casually dressed ?? Behavior: cooperative with the interview and good eye contact ?? Speech: normal pitch, normal volume, normal rate and normal rhythm ?? Language: fluent in panamanian ?? Mood: doing ok ?? Affect: full, [...] functioning ?? Insight: limited ?? Judgment: limited Venus Suicide Risk Scale (most recently completed): Wish [...] HA1C Vit Lvls: No results found for: [id number], SFOLATE UA: No results found for: GLUCOSEU, [...] the weather is good. We discussed the [facility] ECT teaching video and he plans to watch it later today. * Neymar Moya, MS - 01/05/2019 12:47 PM EST Inpatient [...] in behavioral control and stay for time clerk. NEYMAR MOYA MS 01/05/2019 Patient attended the following activities: ____Walk __x__Workshop facilitated by visual and stock associate with the goal to write and/or make [...] and normal rhythm ?? Language: fluent in panamanian ?? Mood: doing ok ?? Affect: full, [...] functioning ?? Insight: limited ?? Judgment: limited Venus Suicide Risk Scale (most recently completed): Wish [...] HA1C Vit Lvls: No results found for: [id number], SFOLATE UA: No results found for: GLUCOSEU, [...] patient's condition and/or diagnostic study. * Neymar Myoa MS - 01/04/2019 12:38 PM EST Inpatient [...] HA1C Vit Lvls: No results found for: [id number], SFOLATE UA: No results found for: GLUCOSEU, [...] is going on. After group talked with contract technical writer about being more irritable and upset that [...] episode Interval History: (1,1,4) Depression 3/10 Anxiety 3/10 Sleep 4.75 hours Wishing not to make [...] HA1C Vit Lvls: No results found for: [id number], SFOLATE UA: No results found for: GLUCOSEU, [...] has been followed by a neurologist in [facility]. Additionally, they mentioned additional history of [...] questions related to content of discussion. SALIMA PEREZ, Mayuri 01/02/2019 Patient attended the following activities: ____Walk __X__Workshop ____Pet visit Additional pertinent information: Social and engaged in conversations around music and life events. * Elizabeth St RN - 01/02/2019 6:58 AM EST Patient has been very irritable on most contacts. Uses profanities quite freely. This contract technical writer spoke with patient this morning as it [...] 38yo and 44 yo Employment: retired Residence: [address] [place] [phone] Outpatient Providers: (include location) Current Mental Health Prescriber: PCP Current Therapist: none PCP: Aurelia Bobby MD Chief Complaint: 68 y.o. Female presents to [facility] with worsening mood symptoms and suicidal ideations. [...] find it helpful as she and the cinder worker had a verbal altercation. Currently, the patient [...] Once Brian Singleton MD 0.5mg at 01/01/19 2867 Current Outpatient Medications on File Prior to [...] TECHNIQUE performed by Viola Prieto MD at [facility] ENDOSCOPY ??? PRO UP GI ENDOSCOPY, REMV TUMOR, SNARE N/A 10/29/2018 EGD, W REMOVAL TUMOR/POLYPS/LESIONS BY SNARE TECHNIQUE performed by Viola Prieto MD at [facility] ENDOSCOPY ??? PRO UPPER GI ENDOSCOPY, BIOPSY N/A 10/01/2018 EGD WITH BIOPSY (WRVU 2.49) performed by Viola Prieto MD at [facility] ENDOSCOPY ??? PRO UPPER GI ENDOSCOPY, BIOPSY N/A 10/29/2018 EGD WITH BIOPSY (WRVU 2.49) performed by Viola Prieto MD at [facility] ENDOSCOPY Family Medical/Psychiatric History: No one [...] cough GI no vomiting and no constipation /FUNERAL SERVICE PRACTITIONER/EMBALMER (include LMP if applicable) No polyuria and No dysuria MSK No muscle weakness and No myalgias SKIN No rash NEURO no headache, no numbness and no weakness PSYCH See above ENDO No diaphoresis HEME/LYMPH No easy bleeding ALL/IMMUNO No symptoms of Sinustis and No symptoms of Environmental Allergies Physical Exam: Vitals Admission (Current) from 01/01/2019 in [facility] Weight 53.5 kg (118 lb) Height 162.6 [...] and normal rhythm ?? Language: fluent in panamanian and with paraphasic errors ?? Mood: I [...] HA1C Vit Lvls: No results found for: [id number], SFOLATE UA: No results found for: GLUCOSEU, [...] a 68 y.o. Female who presents to [facility] with suicidal ideations with plan to hang [...] as ordered, group therapy, discharge planning- ? [facility]. INDIVIDUALIZED FALL PREVENTION INTERVENTIONS: Patient-specific fall risk [...] List(s) Given -- no Community Agency Name(s) [facility] -- Equipment Needed After Discharge -- [...] Outcome: Ongoing (Interventions Implemented as Appropriate) 01/14/19 09 Interdisciplinary Rounds/Family Conf Participants bilingual case manager;nursing;patient;physician Problem: Coping, Compromised Individual (Adult,Obstetrics,Pediatric) [...] thoughts. PLAN MOVING FORWARD: Continue to monitor, relocation counselor and encourage. Medications administered as prescribed [...] Conf Outcome: Ongoing (Interventions Implemented as Appropriate) 01/13/19923 Interdisciplinary Rounds/Family Conf Participants bilingual case manager;nursing;patient;physician OUTCOME EVALUATION NOTE: OUTCOME SUMMARY: Patient was up early this am. She was on the phone yelling at her . She had also yelled at another patient on the unit. She is rude on contact, much sarcasm when asked. She denies thoughts of wanting to harm herself or others. She did calm down later and was apologetic to contract technical writer for her behavior but again got angry and was disruptive. Patient has attended all groups today and has not had any disruptive behavior. She was visited by her and the visit went well. PLAN MOVING FORWARD: Monitor mood and behavior on the unit. IEA to [facility] when bed available. INDIVIDUALIZED FALL PREVENTION INTERVENTIONS: [...] environmental safety checks Goal: Individualization & Mutuality 01/12/191130 Individualization Patient Specific Preferences call my Patient [...] Choice List(s) Given no Community Agency Name(s) [facility] Equipment Needed After Discharge none Discharge [...] Available none Goal: Interdisciplinary Rounds/Family Conf 01/12/19 0955 Interdisciplinary Rounds/Family Conf Participants patient;nursing Problem: Coping, [...] functional goals OUTCOME EVALUATION NOTE: OUTCOME SUMMARY: Isaura labile, I have a h/a from [facility] and anxious about meeting with the team [...] and RTU. PLAN MOVING FORWARD: Transfer to [facility]- on list unknown at this time Support [...] Mutuality Outcome: Ongoing (Interventions Implemented as Appropriate) 01/12/191130 Individualization Patient Specific Preferences call my Patient [...] Appropriate) 01/12/19 1131 Interdisciplinary Rounds/Family Conf Participants bilingual case manager;social work/services;physician;patient;nursing Problem: Coping, Compromised Individual [...] at this time. PRNs: 2020 Hydroxyzine 50mg 106 Tramadol 50mg Will continue to monitor. PLAN [...] patient room provided Goal: Discharge Needs Assessment 01/08/196 01/11/19 0426 Discharge Needs Assessment Concerns To [...] this am. Her visited and they played criOpenSpan. There was no disruptive behavior noted during [...] to harm herself or others. She told contract technical writer that she was leaving AMA today. She was seen by Dr. Yu and was told she was not allowed to leave and an IEA would be filed for her to go to [facility] if sheinsisted on leaving. She has been loud and disruptive since finding out this information. She is irritable and has been calling her and yelling at him. She has had PRN clonazepam, propranololand hydroxyzine. She has been using the exercise bike in between phone calls. PLAN MOVING FORWARD: IEA to [facility] per Dr. Yu. RTU INDIVIDUALIZED FALL PREVENTION [...] plans to ask MD tomorrow. Joking with contract technical writer and peers. Pt denies depression, anxiety, pain, [...] Review Outcome: Ongoing (Interventions Implemented as Appropriate) 01/08/196 Coping/Psychosocial Plan Of Care Reviewed With patient Plan of Care Review Progress progress toward functional goals as expected OUTCOME EVALUATION NOTE: OUTCOME SUMMARY: Pt was very agitated this evening. Pt said I can't be in here for another day. Pt rated her depression as awsome, and her anxiety as 10/10. Pt stated that her only options were here or [place]. Pt was dropping f bombs with regularity. [...] nightmares. PLAN MOVING FORWARD: Continue to monitor, relocation counselor and encourage. Medications administered as prescribed [...] please? -- Goal: Fall Prevention-Safe Patient Handling 01/07/195 01/08/199 01/08/19 102 Restraint Interventions Safety Promotion/Fall Prevention [...] Rounds/Family Conf 01/08/191028 Interdisciplinary Rounds/Family Conf Participants bilingual case manager;nursing;patient;physician Problem: Coping, Compromised Individual (Adult,Obstetrics,Pediatric) Intervention: Support/Enhance Coping Strategies 01/08/191028 Coping Strategies Supportive Measures active listening utilized;counseling provided;goal setting facilitated;positivereinforcement provided;problem solving facilitated;verbalization of feelings encouraged;relaxation techniques promoted Coping/Psychosocial Interventions Environmental Support calm environment promoted Goal: Effective Coping Patient will demonstrate the desired outcomes by discharge/transition of care. 02/14/19 1029 Coping, Compromised Individual (Adult,Obstetrics,Pediatric) Effective Coping [...] difficulty. PLAN MOVING FORWARD: Continue to monitor, relocation counselor and encourage. Medications administered as prescribed [...] toward outcome * Plan of Care - lEda Kay - 01/07/2019 1:00 PM EST Problem: [...] Outcome: Ongoing (Interventions Implemented as Appropriate) 01/06/19 1318 Coping/Psychosocial Plan Of Care Reviewed With patient [...] cooperative. PLAN MOVING FORWARD: Continue to monitor, relocation counselor and encourage. Medications administered as prescribed [...] of peers. Patient awake most of the net developer software engineer c, Saturday, 01/05 coloring quietly in room. Rates: [...] toward outcome * Plan of Care - Concpecion Samuel RN - 01/04/2019 5:44 PM EST [...] patient, patient and went through belongings with MAIL EXAMINER, sending home things that were not allowed [...] toward outcome * Plan of Care - RahulLuís hidalgoveronica Guevara - 01/03/2019 3:32 PM EST Problem: Patient [...] Mutuality Outcome: Ongoing (Interventions Implemented as Appropriate) 01/01/19213601/02/19 0059 01/02/19 1351 Individualization Patient Specific Preferences [...] Appropriate) 01/02/19 135 Interdisciplinary Rounds/Family Conf Participants bilingual case manager;patient;social work/services;nursing;physician Problem: Coping, Compromised Individual [...] understanding of illness 2 Work with Patient Warp Doffer to create and implement aftercare plan 3 [...] ATTENDING PHYSICIAN Lore Ryan MD NURSING PATIENT VINYL TOP INSTALLER Anahi Hunter RN THERAPIST SENIOR MERCHANDISER Lucie Travis [facility] * Initial Assessments - Anahi Hunter RN - 01/02/2019 12:07 PM EST Initial Patient Assessment Anahi Hunter RN reviewed record and discussed patient with Care Team on 01/02/2019. Introduced/reviewed role; services accepted. Isaura Arellano is a 68 y.o. year old female (1950) presenting to [facility] for treatment with Major depressive disorder [F32.9] [...] ID Effective Group Num 1. MEDICARE - OR* ISAURA ARELLANO 1950 Female Self [id number] 08/25/[address] 2. MEDICARE - BH* ISAURA ARELLANO 1950 Female Self [id number] 08/25/[address] Prescription Coverage: Confirmed Preferred Pharmacy: [place], [place] - [address] [place] [address] [address] [facility] [id number] Other: (Ex. Protective Signal Installer Helper Care, Worker???s Comp., Automobile Liability, etc.) HOME ENVIRONMENT / SOCIAL & FAMILY SUPPORTS/COMMUNITY RESOURCES:(living situation, family constellation, Caregivers, current use & knowledge of community resources, etc.) Extended Emergency Contact Information Primary Emergency Contact: Gagan Arellano Address: [address] [place] [phone] [facility] Relation: Spouse Secondary Emergency Contact: Nubia Garcia Address: [address] [place] [id number] [facility] Mobile Relation: Child PRIMARY CARE PHYSICIAN: Aurelia Bobby MD [address] [facility] [phone] MENTAL HEALTH PRESCRIBER: Aurelia Bobby Current Decision-Making [...] care, need for family meeting, need for rn sexual assault, etc.) Safe effective coping skills Functional Status [...] Any special transportation needed at D/C to [address] [place] [phone]? No Rehab/SNF: No New community resources referrals needed? Mental health services Other: PLAN: PCM will continue to monitor progress, follow for continuity of care and assist with transition of care planning while hospitalized. Anahi Hunter RN PAGER: [phone] * Plan of Care - Elizabeth Hassan [...] with search, irritable sarcastic and swearing at MAIL EXAMINER. Throwing paper and pens. called and demanded he get me out of this f*&%ing place.Apparently he declined and conversation ended. When she was interviewed in her room, her behavior was more appropriate after she was asked to be more respectful and not swear. Interview completed andpt apologized to MAIL EXAMINER. B/p significantly high on admission to unit [...] 4:30 PM EDT Office Visit Dermatology at [facility] [address] [place] [address] Ruma Echavarria MD [facility] [address] [place] [address] documented as of this encounter Procedures Procedure Name Priority Date/Time Associated Diagnosis Comments TROPONIN STAT 01/07/2019 3:16 PM EST EKG 12-LEAD Routine 01/07/2019 2:53 PM EST Hypertension, unspecified type ECT (WRVU 2.5) 01/07/2019 8:01 AM EST ECT F32.9 EKG 12-LEAD Routine 01/05/2019 5:22 PM EST Depression, unspecified depression type Hypertension, unspecified type documented in this encounter Results * Troponin (01/07/2019 3:16 PM EST) Troponin-T <0.01 0.00 - 0.00 ng/mL [facility] Comment: The 99th percentile for Troponin T is less than 0.01 ng/mL, any detectable cTnT concentration using this assay should be considered elevated. According to the third universal definition of myocardial infarction the following criteria with a clinical presentation consistent with acute myocardial ischemia meets the diagnosis for a myocardial infarction (OH). Detection of a rise and/or fall of cTnT, with at least one value greater than the 99th percentile (> or = 0.01) and with at least one of the following ?? Symptoms of ischemia ?? New or presumed new significant EH-kozetnt-S wave (ST-T) changes or new left bundle [...] additional sample may be indicated. Reference: Third [place] Definition of Myocardial Infarction. Journal of the [place] [employer] 2012;60:1581-98 Blood specimen (specimen) 01/07/2019 3:16 PM EST 01/07/2019 3:30 PM EST Narrative Resulting Agency Comment Spec In Lab Lore Ryan MD CHEMISTRY ORDERABLES Performing Organization Address [facility] Co de Phone Number [facility] [place] [address] * EKG 12 Lead (01/07/2019 2:53 PM EST) Ventricular rate 55 BPM MUSE SYSTEM Atrial Rate 55 BPM MUSE SYSTEM P-R Interval 148 ms MUSE SYSTEM QRS Duration 90 ms MUSE SYSTEM Q-T Interval 420 ms MUSE SYSTEM QTC Calculated (Bezet) 401 ms MUSE SYSTEM Calculated P [place] 55 degrees MUSE SYSTEM Calculated R [place] 60 degrees MUSE SYSTEM Calculated T [place] 44 degrees MUSE SYSTEM INTERPRETATION Sinus bradycardia Possible Left atrial enlargement Left ventricular hypertrophy Nonspecfic ST segment changes Abnormal ECG When compared with ECG of 05-JAN-2019 17:22, No significant change was found Confirmed by MD MICKI, BK ([id number]) on 01/08/2019 8:32:13 AM MUSE SYSTEM 01/07/2019 2:53 PM EST 01/08/2019 8:32 AM EST Lore Ryan MD ECG ORDERABLES Performing Organization Address [facility] Co de Phone Number MUSE SYSTEM * EKG 12 Lead (01/05/2019 5:22 PM EST) Ventricular rate 61 BPM MUSE SYSTEM Atrial Rate 61 BPM MUSE SYSTEM P-R Interval 134 ms MUSE SYSTEM QRS Duration 88 ms MUSE SYSTEM Q-T Interval 394 ms MUSE SYSTEM QTC Calculated (Bezet) 396 ms MUSE SYSTEM Calculated P [place] 60 degrees MUSE SYSTEM Calculated R [place] 68 degrees MUSE SYSTEM Calculated T [place] 39 degrees MUSE SYSTEM INTERPRETATION Normal sinus rhythm Left ventricular hypertrophy Nonspecific ST abnormality consider ischemia Abnormal ECG No previous ECGs available Confirmed by MD HERNÁN, LEONOR ([id number]) on 01/05/2019 6:21:55 PM MUSE SYSTEM 01/05/2019 5:22 PM EST 01/05/2019 6:21 PM EST Lore Ryan MD ECG ORDERABLES [facility] documented in this encounter Visit Diagnoses Not on filedocumented in this encounter Admitting Diagnoses Diagnosis Major [...] Oral, 2 TIMES DAILY PRN, Starting on Sat01/10/19 at 1113, Until Sat01/14/19 at 2005, Anxiety, Routine Given 01/14/2019 12:25 PM EST 25 mg Given 01/10/2019 11:19 AM EST 25 mg hydrOXYzine (ATARAX) tablet 50 mg 50 mg, Oral, NIGHTLY PRN, Starting on Sat01/05/19 at 1222, Until Sat01/14/19 at 2005, Anxiety, [...] Given 01/12/2019 8:20 AM EST 30 mg melatonin tablet 3 mg 3 mg, [...] on Sat01/07/19 at 1108, Until Sat01/14/19 at 2004, Nausea, Routine Given 01/08/2019 10:55 AM EST 4 mg Given 01/07/2019 11:20 AM EST 4 mg prazosin (MINIPRESS) capsule 1 mg 1 mg, Oral, NIGHTLY, First dose on Sat01/09/19 at 2100, Until Discontinued, Routine propranolol (INDERAL) tablet 10 mg 10 mg, Oral, 2 TIMES DAILY PRN, Starting on Halle 01/01/19 at 2254, Until Sat01/14/19 at 2004, anxiety, Routine Given 01/13/2019 8:25 AM EST 10 mg Given 01/12/2019 8:22 AM EST 10 mg Given 01/11/2019 2:30 PM EST 10 mg psyllium (Aspartame) 1 packet 1 packet, Oral, DAILY PRN, Starting on Sat01/04/19 at 0954, Until Sat01/14/19 at 2004, GI, Routine Given 01/08/2019 8:27 PM EST 1 packet Given 01/07/2019 8:15 PM EST 1 packet Given 01/06/2019 9:00 AM EST 1 packet risperiDONE (RisperDAL M-TABS) disintegrating tablet 2 mg 2 mg, Oral, 2 TIMES DAILY PRN, Starting on 01/03/19 at 1425, Until Sat01/14/19 at 2004, Agitation, Routine senna (SENOKOT) tablet 17.2 mg 17.2 mg, Oral, 2 TIMES DAILY PRN, Starting on 01/06/19 at 1722, Until Sat01/14/19 at 2004, Constipation, Routine Given 01/08/2019 8:27 PM EST 17.2 mg Given 01/07/2019 8:14 PM EST 17.2 mg Given 01/06/2019 5:47 PM EST 17.2 mg sodium chloride (OCEAN) 0.65 % nasal spray 1 spray 1 spray, Each Nare, 2 TIMES DAILY PRN, Starting on Halle 01/01/19 at 2253, Until Sat01/14/19 at 2004, Congestion, Routine traMADol (ULTRAM) tablet 50 mg [...] Aguilar RN) 2028 (Given - Provider: Giovanny Bob RN) lamoTRIgine (LaMICtal) tablet 25 mg 25 mg, Oral, DAILY, First dose on Sat01/09/19 at 1600, Until Discontinued, Routine 08 (Given - Provider: Concepcion Samuel RN) 0825 (Given - Provider: Kim Espinoza, THAIS) 0815 (Given - Provider: Brigid Murguia, THAIS) levothyroxine (SYNTHROID) tablet 50 mcg 50 mcg, Oral, EVERY MORNING, First dose on Sat01/02/19 at 0600, Until Discontinued, Give at 530am, Routine 0621 (Given - Provider: Deandra Aguilar, THAIS) 0705 (Given - Provider: Deandra Aguilar, RN) 0623 (Given - Provider: Giovanny Bob RN) lisdexamfetamine (VYVANSE) capsule 30 mg 30 mg, Oral, DAILY, First dose on Sat01/09/19 at 1115, Until Discontinued, Routine 0820 (Given - Provider: Concepcion Samuel RN) 0824 (Given - Provider: Kim Espinoza RN) 0815 (Given - Provider: Brigid Murguia RN) pantoprazole (PROTONIX) tablet 20 mg (CANCELED) 20 [...] Espinoza, THAIS) 0816 (Given - Provider: Brigid Murguia, THAIS) hydrOXYzine (ATARAX) tablet 25 mg 25 mg, Oral, 2 TIMES DAILY PRN, Starting on Sat01/10/19 at 1113, Until Sat01/14/19 at 2005, Anxiety, Routine 0621 (Not Given - Provider: Deandra Aguilar RN - Reason: See comment - Comment: will give in 30 min, pt just took Synthroid) 1225 (Given - Provider: Brigid Murguia RN) hydrOXYzine (ATARAX) tablet 50 mg 50 mg, Oral, NIGHTLY PRN, Starting on Sat01/05/19 at 1222, Until Sat01/14/19 at 2004, Anxiety, sleeplessness, Routine 2028 (Given - Provider: Deandra Aguilar RN) 2218 (Given - Provider: Giovanny Bob RN) ibuprofen (ADVIL;MOTRIN) tablet 600 mg 600 mg, Oral, EVERY 6 HOURS PRN, Starting on Sat01/07/19 at 1219, Until Sat01/14/19 at 2004, Pain, Administer orally with milk or food to minimize GI irritation. Maximum dose of 3200 mg from all sources in 24 hours, Routine 1718 (Given - Provider: Concepcion Samuel RN) 0834 (Given - Provider: Kim Espinoza RN)2028 (Given - Provider: Giovanny Bob RN) 0236 (Given - Provider: Giovanny Bob, THAIS)1021 (Given - Provider: Brigid Murguia RN) melatonin tablet 3 mg 3 mg, Oral, NIGHTLY PRN, Starting on Sat01/05/19 at 1222, Until Sat01/14/19 at 2004, sleeplessness, [...] anxiety, Routine 0822 (Given - Provider: Concepcion Samuel RN) 0825 (Given - Provider: Kim Espinoza RN) psyllium (Aspartame) 1 packet 1 packet, Oral, DAILY PRN, Starting on Sat01/04/19 at 0954, Until Sat01/14/19 at 2004, GI, Routine risperiDONE (RisperDAL M-TABS) disintegrating tablet 2 mg 2 mg, Oral, 2 TIMES DAILY PRN, Starting on 01/03/19 at 1425, Until Sat01/14/19 at 2004, Agitation, Routine senna (SENOKOT) tablet 17.2 mg 17.2 mg, Oral, 2 TIMES DAILY PRN, Starting on 01/06/19 at 1722, Until Sat01/14/19 at 2004, Constipation, Routine sodium chloride (OCEAN) 0.65 % nasal spray 1 spray 1 spray, Each Nare, 2 TIMES DAILY PRN, Starting on Halle 01/01/19 at 2253, Until Sat01/14/19 at 2004, Congestion, Routine traMADol (ULTRAM) tablet 50 mg 50 mg, Oral, EVERY 6 HOURS PRN, Starting on Sat01/07/19 at 1224, Until Sat01/14/19 at 2004, Pain, Please tylenol first, Routine 0107 (Given - Provider: Deandra Aguilar, THAIS)0826 (Given - Provider: Concepcion Samuel, THAIS)1516 (Given - Provider: Concepcion Samuel, THAIS)2029 (Given - Provider: Deandra Aguilar, THAIS) 1225 (Given - Provider: Brigid Murguia, THAIS)1818 (Given - Provider: Kim Espinoza RN) 1225 (Given - Provider: Brigid Murguia, THAIS) traZODone (DESYREL) tablet 50 mg 50 mg, Oral, NIGHTLY PRN, Starting on 01/12/19 at 1042, Until Sat01/14/19 at 2004, Sleep, Routine 2028 (Given - Provider: Deandra Aguilar, RN) documented in this encounter Care Teams Chief Of Vital Statistics Relationship Specialty Start Date End Date Aurelia Bobby MD [address] [place] [address] [address] [facility] [address] [place] [address] PCP - General 08/31/14 01/23/24 documented as of this encounter
--- OUTSIDE RECORDS SUMMARY | 2024-07-15 14:29 | XMS_ITS | Encounter Summary ---
Author Organization [facility] [place] [address] Care Team Providers Care Nuclear Medicine Physician Name Role Phone Aurelia Bobby MD Primary Care Provider [phone] Encounter Details Date Type Department Care Team (Late Contact Info) Description 11/13/2019 Ancillary Procedure [place] [address] Tres Graham MD [facility] [place] [address] Social History Tobacco Use Types Packs/Day Years [...] PM EDT Office Visit Dermatology at [facility] [address] [place] [address] Ruma Echavarria MD [facility] [place] [address] documented as of this encounter Procedures Procedure Name Priority Date/Time Associated Diagnosis Comments FILM LIBRARY STORAGE ONLY DX CHEST Routine 11/13/2019 12:00 AM EST documented in this encounter Results * Film Library- Storage Only DX Chest (11/13/2019 12:00 AM EST) Narrative [facility] - 11/26/2019 12:26 PM EST This exam is auto-finalizing. It's purpose is for storage only. Tres Graham MD IMG FILM LIBRARY ORDERABLES [place], [place] documented in this encounter Visit Diagnoses Not on filedocumented in this encounter Care Teams Nuclear Medicine Physician Relationship Specialty Start Date End Date Aurelia Bobby MD [address] [place] [address] [address] [facility] [address] [place] [address] PCP - General 08/31/14 01/23/24 documented as of this encounter
--- OUTSIDE RECORDS SUMMARY | 2024-07-15 14:29 | XMS_ITS | Encounter Summary ---
Author Organization [facility] [place] [address] Care Team Providers Care Supervisor Fish Bait Processing Name Role Phone Aurelia Bobby MD Primary Care Provider [phone] Encounter Details Date Type Department Care Team (Late st Contact Info) Description 01/25/2020 1:00 PM EST - 01/25/2020 1:30 PM EST [place] [address] Georges Bright MD [facility] [place] [address] EGD, W REMOVAL TUMOR/POLYPS/LESIONS BY SNARE TECHNIQUE (WRVU 3.47) Social History Tobacco Use Types Packs/Day Years [...] Sign Reading Time Taken Comments Blood Pressure 121/62 01/25/2020 1:30 PM EST Pulse 61 01/25/2020 1:30 PM EST Temperature 36.8 ??C (98.2 ??F) 01/25/2020 11:[address] Respiratory Rate 14 01/25/2020 1:30 PM EST Oxygen Saturation 97% 01/25/2020 1:30 PM EST Inhaled Oxygen Concentration - - Weight 59 kg (130 lb) 01/25/2020 11:56 AM EST Height 162.6 cm (5' 4) 01/25/2020 11:56 AM EST Body Mass Index 22.31 01/25/2020 11:56 AM EST documented in this encounter Discharge Instructions * Discharge Instructions* Tejas Marr RN - 01/25/2020 2:01 PM EST Upper GI Endoscopy: What to Expect [...] the day after the procedure, use an sbsy-ntl-wzorbjy spray to numb your throat. Sucking on [...] occurs, please contact your Doctor. Please call [phone] before 8pm Mon-Fri with problems, questions or concerns. If you call after 8pm or on weekends, call the Hospital at [phone] and ask to speak to the Chief Sustainability Officer electronic equipment maint tech and the chief cloth finishing range operator will contact that person for you. When should you call for help? Call [phone] anytime you think you may need emergency [...] any problems. Where can you learn more? [facility] View your After Visit Summary and more online at [email or web address] If you would like to provide feedback about your hospital experience, please call the Office of Patient and Family Relations at . If you have received this After Visit Summary in error, please immediately return it in person to the department, or notify the [facility] Privacy Office by calling toll free at between the hours of 8AM and 5PM to arrange for our retrieval of the documents at no cost to you. Content Version: 12.2 ?? 1280-3007 [employer]. Care instructions adapted under license by [facility]. If you have questions about a medical condition or this instruction, always ask your healthcare professional. [employer] disclaims any warranty or liability for your [...] mg Tablet 0.5 mg as needed. 03/03/2014 meclizine (ANTIVERT) 25 mg Tablet, Chewable Four times a day 09/27/2015/02/2021 clonazePAM (KLONOPIN) 1 mg Tablet Take 1 tablet by mouth nightly. 14 tablet 01/14/2019 08/29/2022 cholecalciferol, Vitamin D3, 25 mcg (1,000 unit) Capsule Take by mouth. 01/25 magnesium oxide (MAG-OX) 400 mg Tablet Take 500 mg by mouth daily. 01/26/2021 fluticasone-salmeterol (ADVAIR DISKUS) 250-50 mcg/dose Disk with Device Inhale 1 puff into the lungs every 12 hours. 01/26/2021 documented as of this encounter H&P Notes * Georges Bright MD - 01/25/2020 1:10 PM EST Patient Name: Isaura Arellano Patient Age: 69 y.o. Birthdate: 1950 Admit date: 01/25/2020 Attending Physician: Georges Bright MD Gastroenterology & Hepatology Pre-Procedure History and Physical Planned Procedure: EGD: Indication: dysphagia, rule out celiac, weight loss Patient Active Problem List Diagnosis Code ??? [...] ??? Ganglion M67.40 Medications: Reviewed in EDH No Known Allergies Social History/Family History: Reviewed in EDH. No changes Exam: Most Recent Vitals: 01/25/20 1156 BP: 136/80 Pulse: 84 Resp: 18 Temp: 36.8 ??C (98.2 ??F) SpO2: 95% GEN: NAD, AAOX3 HEENT: NC/AT dryMM, anicteric [...] complication. Informed Consent signed by patient (or exhibit display representative). documented in this encounter Plan of Treatment Upcoming Encounters Date Type Department Care Team (Late st Contact Info) Description 09/01/2024 4:30 PM EDT Office Visit Dermatology at [facility] [address] [place] [address] Ruma Echavarria MD [facility] DR ABDIRAHMAN [place] [address] documented as of this encounter Procedures Procedure Name Priority Date/Time Associated Diagnosis Comments SURGICAL PATHOLOGY REPORT Routine 01/25/2020 1:51 PM EST SPECIMEN TO PATHOLOGY Routine 01/25/2020 1:51 PM EST Up Gi Endoscopy, Remv Tumor, Snare ([id number]) 01/25/2020 1:22 PM EST Nausea without vomiting Early satiety Weight loss UPPER GI ENDOSCOPY Routine 01/25/2020 12 :43 PM EST documented in this encounter Results * Surgical Pathology Report (01/25/2020 1:51 PM EST) Final Diagnosis [id number] ? Location: 4T; EA07; A The signing pathologist has (i) examined the relevant preparation(s) for the specimen(s) and (ii) rendered or confirmed the diagnosis(es). . ?Surgical Pathology DIAGNOSIS Duodenum, polypectomy: - ??Fragments of tubular adenoma. Electronically signed by: ??Farhan Ramesh MD Verified: ??01/27/2020 ?Pathologist Performed at: ??-[facility] [place], [place], [place] CLINICAL INFORMATION Specimen Submitted: A - Duodenum polyectomy ? polyp, biopsy, multiple Clinical History and Diagnosis: Duodenitis, polyp vs inflammation SPECIMEN PROCESSING A - Labeled/Fixative : Duodenum polypectomy ??? Polyp, formalin. Quantity/Size: Four, 0.1-0.3 cm. Tissue Description: Soft, collins-pink tissues. Sections/Process ing: Submitted en toto ??in 1 cassette labeled A1. ??coco 01/27/2020 3:[address] [facility] GI Biopsy 01/25/2020 1:51 PM EST 01/25/2020 1:51 PM EST Georges Bright MD PATHOLOGY/CYTOLOG Y ORDERABLES Performing Organization Address [facility] Co de Phone Number [facility] [place] [address] * Specimen to Pathology (01/25/2020 1:51 PM EST) AP Specimen 01/25/2020 1:51 PM EST 01/25/2020 3:[address] [facility] - 01/25/2020 3:20 PM EST Specimen requisition ordered. ??Separate Pathology report to follow Resulting Agency Comment Spec In Lab Georges Bright MD PATHOLOGY/CYTOLOG Y ORDERABLES Performing Organization Address [facility] Co de Phone Number [facility] [place] [address] * UPPER GI ENDOSCOPY (01/25/2020 12:43 PM EST) UPPER GI ENDOSCOPY [facility] Endoscopy Procedure Date: 01/25/2020 12:43 PM ? Patient Name: Isaura Arellano ? Date of : 1950 ? Age: 69 ? Order #: [id number] ? Instrument Name: [id number] ? Procedure: ? Upper GI endoscopy Indications: ? Follow-up of gastric polyps Patient Profile: ? This is a 69 year old female. Refer ? to note in patient chart for ? documentation of history and ? physical. 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 10/2018. Providers: ? Georges Bright MD, Barby Crooks ? Stanton Medina MD: ?Aurelia Bobby MD Medicines: ? Midazolam 4.5 mg IV, Fentanyl 225 ? micrograms IV Complications: ? No immediate complications. Procedure: [...] ? Endoscope was introduced through the ? and advanced to the. The patient ? tolerated the procedure well. The ? upper GI endoscopy was accomplished ? without difficulty. The patient ? tolerated the procedure well. ? Findings: ? The examined esophagus was normal. ? The Z-line was regular and was found 40 cm from the ? incisors. ? The entire examined stomach was normal. ? The cardia and gastric fundus were normal on ? retroflexion. ? There was a small lipoma, 12 mm in diameter, in the ? second portion of the duodenum. Appear benign ? (previously biopsied). ? A focal area (5x9mm) with a polypoid appearance and ? centrally denuded mucosa and some bleeding suggesting ? ulceration surrounded by congested mucosa with ? question of adenomatous changes were found in the ? second portion of the duodenum opposite the ? previously noted lipoma. The area was removed with a ? cold snare. Resection and retrieval were complete. ? The exam of the duodenum was otherwise normal. ? Moderate Sedation: ? Moderate (conscious) sedation [...] the ? incisors. ? - Normal stomach. No mucosal ? abnormalities. ? - Duodenal lipoma. ? - Mucosal changes in the duodenum. Recommendation: ?- Await pathology results. ? Attending Participation: ? I personally performed the entire procedure. I was ? present during the intraservice time as documented by ? the sedation RN. ? Dr. Rodolfo Bright ____ Georges Bright MD 01/25/2020 2:22:29 PM Number of Addenda: 0 Note Initiated On: 01/25/2020 12:43 PM PROVATION 01/25/2020 12:4 3 PM EST Aurelia Bobby MD GENERAL SURGICAL ORD ERABLES PROVATION documented in this encounter Visit Diagnoses Diagnosis Nausea without vomiting Early satiety Weight loss Loss of weight documented in this encounter Administered Medications Inactive Administered Medications - up to 3 most recent administrations Medication Order MAR Action Action Date Dose Rate Site fentaNYL 50 mcg/mL multi-dose injection ONCE PRN, Starting on 01/25/20 at 1323, Until 01/25/20 at 1649, Intra-Operative (Intra-Procedure), Routine Given 01/25/2020 1:44 PM EST 25 mcg Given 01/25/2020 1:32 PM EST 50 mcg Given 01/25/2020 1:29 PM EST 50 mcg lactated ringers infusion 100 mL/hr, Intravenous, CONTINUOUS, Starting on Sat01/25/20 at 1215, Until Sat01/25/20 at 1431, Endoscopy (Day of Procedure) New Bag 01/25/2020 12:06 PM EST 100 mL/hr 100 mL/hr midazolam (PF) (VERSED) multi-dose injection ONCE PRN, Starting on Sat01/25/20 at 1323, Until Sat01/25/20 at 1649, Intra-Operative (Intra-Procedure), Routine Given 01/25/2020 1:46 PM EST 0.5 mg Given 01/25/2020 1:32 PM EST 1 mg Given 01/25/2020 1:29 PM EST 1 mg documented in this encounter Active and Recently Administered Medications Times are shown in EST. Continuous Medication Order 01/23/2020 01/24/2020 01/25/2020 lactated ringers infusion (CANCELED) 100 mL/hr, Intravenous, CONTINUOUS, Starting on Sat01/25/20 at 1215, Until Sat01/25/20 at 1431, Endoscopy (Day of Procedure) 1206 (New Bag - Prov ider: Brian Jiménez RN) PRN Medication Order 01/23/2020 01/24/2020 01/25/2020 fentaNYL 50 mcg/mL multi-dose injection (CANCELED) ONCE PRN, Starting on 01/25/20 at 1323, Until 01/25/20 at 1649, Intra-Operative (Intra-Procedure), Routine 1323 (Given - Provid er: Barby Medina RN)1326 (Given - Provider: Barby Medina RN)1329 (Given - Provider: Barby Medina RN)1332 (Given - Provider: Barby Medina RN)1344 (Given - Provider: Barby Medina RN) midazolam (PF) (VERSED) multi-dose injection (CANCELED) ONCE PRN, Starting on Sat01/25/20 at 1323, Until Sat01/25/20 at 1649, Intra-Operative (Intra-Procedure), Routine 1323 (Given - Provid er: Barby Medina RN)1326 (Given - Provider: Barby Medina RN)1329 (Given - Provider: Barby Medina RN)1332 (Given - Provider: Barby Medina RN)1346 (Given - Provider: Barby Medina RN) documented in this encounter Care Teams Supervisor Fish Bait Processing Relationship Specialty Start Date End Date Aurelia Bobby MD [address] [place] [address] PCP - General 08/31/14 01/23/24 documented as of this encounter
--- OUTSIDE RECORDS SUMMARY | 2024-07-15 14:29 | XMS_ITS | Encounter Summary ---
Author Organization [facility] [place] [address] Care Team Providers Care Furnace Liner Name Role Phone Aurelia Bobby MD Primary Care Provider [phone] Encounter Details Date Type Department Care Team (Late st Contact Info) Description 01/25/2020 11:39 AM EST - 01/25/2020 2:44 PM EST Hospital En[place] [address] Georges Bright MD [facility] [place] [address] Discharge Disposition: Home Social History Tobacco Use [...] Sign Reading Time Taken Comments Blood Pressure 119/96 01/25/2020 2:20 PM EST Pulse 71 01/25/2020 1:54 PM EST Temperature 36.8 ??C (98.2 ??F) 01/25/2020 11:[address] Respiratory Rate 18 01/25/2020 2:30 PM EST Oxygen Saturation 95% 01/25/2020 2:30 PM EST Inhaled Oxygen Concentration - - [...] the day after the procedure, use an vhvi-csp-dhbyzrq spray to numb your throat. Sucking on [...] occurs, please contact your Doctor. Please call [phone] before 8pm Mon-Fri with problems, questions or concerns. If you call after 8pm or on weekends, call the Hospital at [phone] and ask to speak to the Dock Worker director of alumni relations and the complaint operator will contact that person for you. When should you call for help? Call [phone] anytime you think you may need emergency [...] any problems. Where can you learn more? [facility] View your After Visit Summary and more online at [email or web address] If you would like to provide [...] cost to you. Content Version: 12.2 ?? [id number] [employer]. Care instructions adapted under license by [facility]. If you have questions about a medical condition or this instruction, always ask your healthcare professional. [employer] disclaims any warranty or liability for your [...] Tablet, Chewable Four times a day 09/27/2015 03/02/2021 clonazePAM (KLONOPIN) 1 mg Tablet Take 1 [...] complication. Informed Consent signed by patient (or title insurance sales representative). documented in this encounter Plan of Treatment Upcoming Encounters Date Type Department Care Team (Late st Contact Info) Description 09/01/2024 4:30 PM EDT Office Visit Dermatology at [facility] [address] [place] [address] Ruma Echavarria MD [facility] DR ABDIRAHMAN [place] [address] documented as of this encounter Procedures Procedure Name Priority Date/Time Associated Diagnosis Comments SURGICAL PATHOLOGY REPORT Routine 01/25/2020 1:51 PM EST SPECIMEN TO PATHOLOGY Routine 01/25/2020 1:51 PM EST Up Gi Endoscopy, Remv Tumor, Snare ([id number]) 01/25/2020 1:22 PM EST Nausea without vomiting Early satiety Weight loss UPPER GI ENDOSCOPY Routine 01/25/2020 12 :43 PM EST documented in this encounter Results * Surgical Pathology Report (01/25/2020 1:51 PM EST) Final Diagnosis [id number] ? Location: 4T; EA07; A The signing pathologist has (i) examined the relevant preparation(s) for the specimen(s) and (ii) rendered or confirmed the diagnosis(es). . ?Surgical Pathology DIAGNOSIS Duodenum, polypectomy: - ??Fragments of tubular adenoma. Electronically signed by: ??Farhan Ramesh MD Verified: ??01/27/2020 ?Pathologist Performed at: ??-[facility] Dept. of Pathology, [place], [place] CLINICAL INFORMATION Specimen Submitted: A - Duodenum polyectomy ? polyp, biopsy, multiple Clinical History and Diagnosis: Duodenitis, polyp vs inflammation SPECIMEN PROCESSING A - Labeled/Fixative : Duodenum polypectomy ??? Polyp, formalin. Quantity/Size: Four, 0.1-0.3 cm. Tissue Description: Soft, collins-pink tissues. Sections/Process ing: Submitted en toto ??in 1 cassette labeled A1. ??coco 01/27/2020 3:16 PM EST [facility] GI Biopsy 01/25/2020 1:51 PM EST 01/25/2020 1:51 PM EST Georges Bright MD PATHOLOGY/CYTOLOG Y ORDERABLES Performing Organization Address [facility]/ZIP Co de Phone Number [facility] [place] [address] * Specimen to Pathology (01/25/2020 1:51 PM EST) AP Specimen 01/25/2020 1:51 PM EST 01/25/2020 3:20 PM EST Narrative [facility] - 01/25/2020 3:20 PM EST Specimen requisition ordered. ??Separate Pathology report to follow Resulting Agency Comment Spec In Lab Georges Bright MD PATHOLOGY/CYTOLOG Y ORDERABLES Performing Organization Address [facility]/ZIP Co de Phone Number [facility] [place] [address] * UPPER GI ENDOSCOPY (01/25/2020 12:43 PM EST) UPPER GI ENDOSCOPY [facility] Endoscopy Procedure Date: 01/25/2020 12:43 PM ? Patient Name: Isaura Arellano ? Date of : 1950 ? Age: 69 ? Order #: [id number] ? Instrument Name: [id number] ? Procedure: ? Upper GI endoscopy Indications: [...] infusion 100 mL/hr, Intravenous, CONTINUOUS, Starting on 01/25/20 at 1215, Until Sat01/25/20 at 1431, Endoscopy (Day of Procedure) New Bag 01/25/2020 12:06 PM EST 100 mL/hr 100 mL/hr documented in [...] Barby Medina RN)1346 (Given - Provider: Barby Medina, THAIS) documented in this encounter Care Teams Furnace Liner Relationship Specialty Start Date End Date Aurelia Bobby MD [address] [facility] [place] [address] PCP - General 08/31/14 01/23/24 documented as of this encounter
--- OUTSIDE RECORDS SUMMARY | 2024-07-15 14:29 | XMS_ITS | Encounter Summary ---
Author Organization [facility] [place] [address] Care Team Providers Care Fast Food Fry Cook Name Role Phone Aurelia Bobby MD Primary Care Provider [phone] Encounter Details Date Type Department Care Team (Late st Contact Info) Description 10/01/2019 Telephone [place] [id number] Elsie Cruz, [facility] DR HEMATOLOGY-[place] [address] Social History Tobacco Use Types Packs/Day Years [...] Telephone Encounter - Elsie Cruz APRN - 10/01/2019 10:11 AM EST Called pt to review recent CT scan. Pt reports she is doing fine. No evidence of disease recurrence. Plan to bring her back in Jul 2020 with labs, CT scan wo contrast, clinic visit. I will ask our secretaries to arrange. Pt denies any additional needs at this time. documented in this encounter Plan of Treatment Upcoming Encounters Date Type Department Care Team (Late st Contact Info) Description 09/01/2024 4:30 PM EDT Office Visit Dermatology at [facility] [address] [place] [address] Ruma Echavarria MD [facility] DR ABDIRAHMAN [place] [address] documented as of this encounter Visit Diagnoses Diagnosis Non-small cell carcinoma of left lung, stage 1 documented in this encounter Care Teams Fast Food Fry Cook Relationship Specialty Start Date End Date Aurelia Bobby MD [address] [place] [address] PCP - General 08/31/14 01/23/24 documented as of this encounter
--- OUTSIDE RECORDS SUMMARY | 2024-07-15 14:29 | XMS_ITS | Encounter Summary ---
[place] [address] Care Team Providers Care Compliance Intern Name Role Phone Aurelia Bobby MD Primary Care Provider [phone] Encounter Details Date Type Department Care Team (Late st Contact Info) Description 11/26/2019 Telephone Hematology [place] [address] Keena Bhakta, RN Social History Tobacco Use Types Packs/Day [...] encounter Miscellaneous Notes * Telephone Encounter - Keena Bhakta, RN - 11/26/2019 12:38 PM EST Message received from police department secretary: Coughing, congestion, Temp over 99 nice 10/25 3 courses of Antibiotics and 1 course of steroids Inhalers Adviar 500/50 and Albuterol inhaler Feeling horrible and very exhausted. Phone is [phone] Got treated at [facility]. ??She is having Chest xray images sent over. ?? Discussed with Elsie Cruz APRN who will f/u with patient. documented in this encounter Plan of Treatment Upcoming Encounters Date Type Department Care Team (Late st Contact Info) Description 09/01/2024 4:30 PM EDT Office Visit Dermatology at [facility] [address] [place] [address] Ruma Echavarria MD [facility] DR ABDIRAH[place] [address] documented as of this encounter Visit Diagnoses Not on filedocumented in this encounter Care Teams Compliance Intern Relationship Specialty Start Date End Date Aurelia Bobby MD [address] [place] [address] PCP - General 08/31/14 01/23/24 documented as of this encounter
--- OUTSIDE RECORDS SUMMARY | 2024-07-15 14:29 | XMS_ITS | Encounter Summary ---
Author Organization [facility] [place] [address] Care Team Providers Care Clinical Manager Home Care Name Role Phone Aurelia Bobby MD Primary Care Provider [phone] Encounter Details Date Type Department Care Team (Late st Contact Info) Description 01/08/2019 8:58 AM EST Anesthesia Event [place] [address] Leonarda Medina MD [facility] [place] [address] Anesthesia Record Procedure Summary Procedure Name Responsible Anesthesiologist Anesthesia Start Time Anesthesia Stop Time ECT (WRVU 2.5) Leonarda Medina MD 01/08/19 085 8 01/08/19 0915 Events Date Time Event Comment 01/08/2019 0858 AN Verify 0858 Start 0900 An Start Data 0900 ASA Monitors 0904 Masked Placed/ Pre O2 0905 An Induction 0907 Bite Block In 0907 ECT Rx 0908 0913 PACU Bed 0915 an stop data 0915 Recovery or ICU Handoff Kary ent care was transferred to the destination unit staff after review of the patient's medical history, current anesthetic/surgical status and plan, according to the Provider Handoff Checklist. 0915 Stop Meds Name Total methohexital in water (PF) 60 mg Succinylcholine 60 mg Ketorolac 15 mg * Agents No agents on file. * Blood No blood administrations on file. Lines, Drains, and Airways Type Details Placement Removal (RETIRED) Peripheral IV Line - Single Lumen 01/06/19; 1625; cephalic vein (lateral side of arm), right; [id number] catheter system; 22 gauge, 1 in length; K. Labbie FURNACE MECHANIC HELPER VAS; distraction, tolerated well, appears comfortable; 0; removed per patient; 01/08/19; 1220 01/06/19 1625 by Yohana Barnhart RN 01/08/19 1220 by Giovnany Bob RN documented in this encounter Social History Tobacco Use Types Packs/Day Years [...] on file documented as of this encounter OR Notes * Anesthesia Postprocedure Evaluation - Leonarda Medina MD - 01/08/2019 9:45 AM EST [facility] Department of Anesthesiology Post-procedure Note Patient: Isaura Arellano Procedure Summary Date: 01/08/19 Room / Location: [facility] MINOR SURGERY / [facility] MAIN OR Anesthesia Start: 857 Anesthesia Stop: 914 Procedure: ECT (WRVU 2.5) (N/A ) Diagnosis: (ECT F32.9) Surgeon: Jagdish Balderas MD Responsible Provider: Leonarda Medina MD Anesthesia Type: general ASA Status: 3 All Anesthesia Providers: Anesthesiologist: Leonarda Medina MD FINANCIAL COST ANALYST: Savannah Mendoza CRNA Vitals Value Taken Time BP 107/51 01/08/2019 9:20 AM Temp Pulse 85 01/08/2019 9:20 AM Resp 16 01/08/2019 9:20 AM SpO2 93 % 01/08/2019 9:20 AM Pain Level Patient Location: PACU/[facility] Level of Consciousness: Conscious but Sleepy Pain Management: Satisfactory Analgesia PONV: None Cardiovascular Status: At Baseline Respiratory Status: At Baseline Postoperative Fluid Status: Intravascular EUvolemia Possible Anesthetic Complications: NONE apparent at time of evaluation Final Primary Anesthesia Type: General (The anesthetic type performed was the same as planned.) Comments: Denies CAMP at this time * Anesthesia Preprocedure Evaluation - Leonarda Medina MD - 01/08/2019 9:06 AM EST Pre-Anesthesia Evaluation for: Isaura Arellano a 68 y.o. female. Procedure(s): ECT (WRVU 2.5) Patient Active Problem List Diagnosis ??? Major depressive disorder ??? Alcohol withdrawal ??? Colon polyp ??? Herpes simplex virus (HSV) infection ??? Hypertension ??? Lacunar infarction ??? Non-small cell carcinoma of left lung, stage 1 Moderately differentiated adenocarcinoma, 1.8 cm, no LVI, positive visceral pleural invasion, no involved nodes (0/8). ??? Abnormal auditory perception ??? Depression Past [...] TECHNIQUE performed by Viola Prieto MD at [facility] ENDOSCOPY ??? PRO UP GI ENDOSCOPY, REMV TUMOR, SNARE N/A 10/29/2018 EGD, W REMOVAL TUMOR/POLYPS/LESIONS BY SNARE TECHNIQUE performed by Viola Prieto MD at [facility] ENDOSCOPY ??? PRO UPPER GI ENDOSCOPY, BIOPSY N/A 10/01/2018 EGD WITH BIOPSY (WRVU 2.49) performed by Viola Prieto MD at [facility] ENDOSCOPY ??? PRO UPPER GI ENDOSCOPY, BIOPSY N/A 10/29/2018 EGD WITH BIOPSY (WRVU 2.49) performed by Viola Prieto MD at [facility] ENDOSCOPY Social History Tobacco Use ??? Smoking status: Former Smoker Types: Cigarettes Last attempt to quit: 03/1988 Years since quittin.8 ??? Smokeless tobacco: Never Used ??? Tobacco comment: uses nicotene gum when I get stressed Substance Use Topics ??? Alcohol use: Yes Alcohol/week: 12.6 oz Types: 21 Glasses of wine per week Comment: drinks more when stressed, last evening Social History Substance and Sexual Activity Drug Use Yes ??? Types: Marijuana Comment: medical marijuana No Known Allergies Medications: MAR and/or home medications have been reviewed. Physical Exam: Most Recent Vitals: 01/08/19 0642 BP: 129/69 Pulse: 70 Resp: 18 Temp: 37 ??C (98.6 ??F) SpO2: 99% Body mass index is 20.28 kg/m??. Height: 162.6 cm (5' 4.02) Weight: 53.6 kg (118 lb 3.2 oz) Airway Assessment: Mallampati: II TM distance: >3 FB Neck ROM: full Cardiovascular Assessment: Pulmonary Assessment: Dental Assessment: - normal exam Misc Assessment: IV access: Peripheral line Anesthesia Plan: ASA 3 general, with a(n) intravenous induction 68 y.o. female with a history of MDD scheduled for: Procedure(s): ECT (WRVU 2.5) Previous anesthetics without issue Plan mask GA with RM. Plans and risks reviewed. Questions answered. Yesterday, patient did not want ketorolac for CAMP. Today, she has changed her mind, and would like to try ketorolac for CAMP. Region - Other Informed Consent: Anesthetic plan and risks discussed with patient. Plan discussed with FINANCIAL COST ANALYST, medical student and attending. PAT Staff Note documented in this encounter Plan of Treatment Upcoming Encounters Date Type Department Care Team (Late st Contact Info) Description 09/01/2024 4:30 PM EDT Office Visit Dermatology at [facility] [address] [place] [address] Ruma Echavarria MD [facility] DR [address] [address] documented as of this encounter Visit Diagnoses Not on filedocumented in this encounter Administered Medications Inactive Administered Medications - up to 3 most recent administrations Medication Order MAR Action Action Date Dose Rate Site ketorolac (TORADOL) injection PRN, Starting on Halle 01/08/19 at 0906, Until Halle 01/08/19 at 0915, Anesthesia Intra-op, Routine Given 01/08/2019 9:06 AM EST 15 mg methohexital (BREVITAL) injection PRN, Starting on Halle 01/08/19 at 0905, Until Halle 01/08/19 at 0915, Anesthesia Intra-op, Routine Given 01/08/2019 9:05 AM EST 60 mg succinylcholine chloride (Quelicin) injection PRN, Starting on Halle 01/08/19 at 0905, Until Halle 01/08/19 at 0915, Anesthesia Intra-op, Routine Given 01/08/2019 9:05 AM EST 60 mg documented in this encounter Care Teams Clinical Manager Home Care Relationship Specialty Start Date End Date Aurelia Bobby MD [address] [place] [address] [address] [facility] [address] [place] [address] PCP - General 08/31/14 01/23/24 documented as of this encounter
--- OUTSIDE RECORDS SUMMARY | 2024-07-15 14:29 | XMS_ITS | Encounter Summary ---
Author Organization [facility] [place] [address] Care Team Providers Care Field Software Engineer Name Role Phone Aurelia Bobby MD Primary Care Provider [phone] Encounter Details Date Type Department Care Team (Late st Contact Info) Description 01/07/2019 8:02 AM EST Anesthesia [place] [address] Devika Cardona MD [facility] DR [place] [address] Fernando Hoffmann CRNA [facility] [place] [address] Anesthesia Record Procedure Summary Procedure Name Responsible Anesthesiologist Anesthesia Start Time Anesthesia Stop Time ECT (WRVU 2.5) Devika Cardona MD 01/07/19 0802 0820 Events Date Time Event Comment 01/07/2019 0755 0802 AN Verify 0802 Start 0802 An Start Data 0802 ASA Monitors 0805 Masked Placed/ Pre O2 0808 An Induction 0811 Bite Block In 0812 ECT Rx 0820 PACU Bed 0820 an stop data 0820 Recovery or ICU Handoff Kary ent care was transferred to the destination unit staff after review of the patient's medical history, current anesthetic/surgical status and plan, according to the Provider Handoff Checklist. 08 Stop Meds Name Total methohexital in water (PF) 60 mg Succinylcholine 60 mg * Agents Name O2 * Blood No blood administrations on file. Lines, Drains, and Airways Type Details Placement Removal (RETIRED) Peripheral IV Line - Single Lumen 01/06/19; 1625; cephalic vein (lateral side of arm), right; [id number] catheter system; 22 gauge, 1 in length; K. Labbie BAND SINGER VAS; distraction, tolerated well, appears comfortable; 0; removed per patient; 01/08/19; 1220 01/06/19 1625 by Yohana Barnhart RN 01/08/19 1220 by Giovanny Bob RN documented in this encounter Social [...] OR Notes * Anesthesia Postprocedure Evaluation - Devika Cardona MD - 01/07/2019 10:15 AM EST [facility] [place]esthesiology Post-procedure Note Patient: Isaura Arellano Procedure Summary Date: 01/07/19 Room / Location: [facility] MINOR SURGERY / [facility] MAIN OR Anesthesia Start: 801 Anesthesia Stop: 819 Procedure: ECT (WRVU 2.5) (N/A ) Diagnosis: (ECT F32.9) Surgeon: Nadja Be MD Responsible Provider: Devika Cardona MD Anesthesia Type: Not recorded ASA Status: 2 All Anesthesia Providers: Anesthesiologist: Devika Cardona MD ASSISTANT TO THE DEAN: Fernando Hoffmann CRNA Vitals Value Taken Time BP 132/69 01/07/2019 8:41 AM Temp Pulse 95 01/07/2019 8:41 AM Resp 20 01/07/2019 8:41 AM SpO2 94 % 01/07/2019 8:41 AM Pain Level 1 01/07/2019 8:41 AM Patient Location: PACU/SDP Level of Consciousness: Awake and Alert Pain Management: Satisfactory Analgesia PONV: None Cardiovascular Status: At Baseline and Hemodynamically Stable Respiratory Status: At Baseline and Room Air Postoperative Fluid Status: Intravascular EUvolemia Possible Anesthetic Complications: NONE apparent at time of evaluation Final Primary Anesthesia Type: General (The anesthetic type performed was the same as planned.) Comments: DEVIKA CARDONA MD * Anesthesia Preprocedure Evaluation - Devika Cardona MD - 01/07/2019 7:29 AM EST Pre-Anesthesia Evaluation for: Isaura Arellano [...] TECHNIQUE performed by Viola Prieto MD at [facility] ENDOSCOPY ??? PRO UP GI ENDOSCOPY, REMV TUMOR, SNARE N/A 10/29/2018 EGD, W REMOVAL TUMOR/POLYPS/LESIONS BY SNARE TECHNIQUE performed by Viola Prieto MD at [facility] ENDOSCOPY ??? PRO UPPER GI ENDOSCOPY, BIOPSY N/A 10/01/2018 EGD WITH BIOPSY (WRVU 2.49) performed by Viola Prieto MD at [facility] ENDOSCOPY ??? PRO UPPER GI ENDOSCOPY, BIOPSY N/A 10/29/2018 EGD WITH BIOPSY (WRVU 2.49) performed by Viola Prieto MD at [facility] ENDOSCOPY Social History Tobacco Use ??? [...] been reviewed. Physical Exam: Most Recent Vitals: 01/07/19 0619 BP: 116/82 Pulse: 71 Resp: 18 Temp: 36.9 ??C (98.4 ??F) SpO2: 100% Body mass index is 20.28 kg/m??. Height: 162.6 cm (5' 4.02) Weight: 53.6 kg (118 lb 3.2 oz) Airway Assessment: Mallampati: II TM distance: >3 FB Neck ROM: full Cardiovascular Assessment: cardiovascular exam normal Pulmonary Assessment: pulmonary exam normal Dental Assessment: - normal exam Misc Assessment: Anesthesia Plan: ASA 2 with a(n) intravenous induction initial ECT For major depression H/o Lung CA On Thyroid supplement No prior issues w/ Anesthesia Titration today For 1st ECT Region - Other Informed Consent: Anesthetic plan and risks discussed with patient. Use of blood products discussed with spouse who. Plan discussed with ASSISTANT TO THE DEAN. PAT Staff Note documented in this encounter Plan of Treatment Upcoming Encounters Date Type Department Care Team (Late st Contact Info) Description 09/01/2024 4:30 PM EDT Office Visit Dermatology at [facility] [address] [place] [address] Ruma Echavarria MD [facility] DR ABDIRAHMAN [place] [address] documented as of this encounter Visit Diagnoses Not on filedocumented in this encounter Administered Medications Inactive Administered Medications - up to 3 most recent administrations Medication Order MAR Action Action Date Dose Rate Site methohexital (BREVITAL) injection PRN, Starting on Sat01/07/19 at 0808, Until Sat01/07/19 at 0820, Anesthesia Intra-op, Routine Given 01/07/2019 8:08 AM EST 60 mg succinylcholine chloride (Quelicin) injection PRN, Starting on Sat01/07/19 at 0808, Until Sat01/07/19 at 0820, Anesthesia Intra-op, Routine Given 01/07/2019 8:08 AM EST 60 mg documented in this encounter Care Teams Field Software Engineer Relationship Specialty Start Date End Date Aurelia Bobby MD [address] [place] [address] [address] [facility] [address] [place] [address] PCP - General 08/31/14 01/23/24 documented as of this encounter
--- OUTSIDE RECORDS SUMMARY | 2024-07-15 14:29 | XMS_ITS | Encounter Summary ---
Author Organization [facility] [place] [address] Care Team Providers Care Supervisor Color Paste Mixing Name Role Phone Aurelia Bobby MD Primary Care Provider [phone] Reason for Visit * Auth/Cert Specialty Diagnoses / Procedures Referred By Bk de leon Referred To Contact Diagnoses Major depressive disorder UNSPECIFIED MOOD D/O Referral ID Status Reason Start Date Expiration Date Visits Re quested Visits Authorized [id number] 1 1 Encounter Details Date Type Department Care Team (Late st Contact Info) Description 01/08/2019 9:03 AM EST - 01/08/2019 9:14 AM EST Surgery [place] [address] Jagdish Balderas MD [facility] [place] [address] ECT (WRVU 2.5) Social History Tobacco Use [...] Sign Reading Time Taken Comments Blood Pressure 129/69 01/08/2019 6:42 AM EST Pulse 70 01/08/2019 6:42 AM EST Temperature 37 ??C (98.6 ??F) 01/08/2019 6:42 AM EST Respiratory Rate 18 01/08/2019 6:42 AM EST Oxygen Saturation 99% 01/08/2019 6:42 AM EST Inhaled Oxygen Concentration - - [...] Isaura Arellano Patient Age: 68 y.o. Language: Brazilian Race: White Ethnicity: Not nor Admit date: [...] Follow-up Providers/Appointments: General Instructions After Care Plan [facility] Intake appointment 1 1/2 hours Rafael Jhaveri January 22, 2018 at 1:00PM [address] [place] [phone] PCP Aurelia Bobby MD [id number] Advance Care [...] relating tothis hospitalization, please contact your patient infant caregiver, Barby Reveles RN, through the [facility] Specialty Sales Representative . Issues after hours and on weekends will be handled by the advanced manufacturing vice president on-call who can be reached through the [facility] Specialty Sales Representative. Medication Instructions Continue to take all of the medications as instructed. Any medication changes will be addressed at your next outpatient appointment with the individual who prescribes your medications. Future Appointments and Orders Future Appointments and Orders Future Appointments Provider Department Dept Phone 01/21/2019 1:15 PM Elsie Cruz, MICHAELLE; Tres Graham MD Hematology and Oncology at [facility] at: Director News Area [phone] Reason for Hospitalization: safety, stabilization and medication [...] find it helpful as she and the licensed master social worker had a verbal altercation. ?? Currently, [...] [facility] the [facility] Patient was also provided with emergency contact [...] HA1C Vit Lvls: No results found for: [id number], SFOLATE UA: No results found for: GLUCOSEU, [...] home Primary Care Physician: Aurelia Bobby MD [phone] Special Physician Instructions: Isaura was admitted to [...] any other decline in your overall condition. [facility] Emergency Services: [facility] [phone] [facility] Emergency Services: [phone] [facility] Central Access Services: [phone] [facility] Main Line: [phone] Activity level: no restrictions from psychiatry Diet: [...] Provider Contact Information: Emergency Services (Crisis Line): [phone] [facility]: [phone] Hospital Main Line: [phone] documented in this encounter Discharge Instructions * Discharge Instructions* Barby Reveles RN - 01/15/2019 2:06 PM EST [facility] Intake appointment 1 /2 hours Rafael Jhaveri January 22, 2018 at 1:00PM [address] [place] [phone] PCP Aurelia Bobby MD Patient to call [...] relating tothis hospitalization, please contact your patient infant caregiver, Barby Reveles RN, through the [facility] Specialty Sales Representative . Issues after hours and on weekends will be handled by the advanced manufacturing vice president on-call who can be reached through the [facility] Specialty Sales Representative. Medication Instructions Continue to take all of [...] (Calculated): 20.24 Height: 162.6 cm (5' 4.02) (01/01/192058) Weight: 54.4 kg (120 lb) (01/11/19 1100) [...] HA1C Vit Lvls: No results found for: [id number], SFOLATE UA: No results found for: GLUCOSEU, [...] home Primary Care Physician: Aurelia Bobby MD [phone] Special Physician Instructions: Isaura was admitted to [...] any other decline in your overall condition. [facility] Emergency Services: [facility] [phone] [facility] Emergency Services: [phone] [facility] Central Access Services: [phone] [facility] Main Line: [phone] Activity level: no restrictions from psychiatry Diet: [...] At what time? 1700 * Salima Perez MHT - 01/14/2019 1:59 PM EST Inpatient Daily Group Note Group: Open discussion: check-in and discussion how to manage anxiety, find your tatitlek, figure out triggers and set short-term and long-term goals. Attendance: Present Behavior: Relevant Therapeutic Work Observed: Moderate Mood: Calm Notes: Patient engaged and discussed how yoga and moravian has helped. NEYMAR MOYA, MS 01/14/2019 Inpatient [...] rate and normal rhythm ? Language:??fluent in paraguayan ? Mood:??good ? Affect:??calm and cooperative and [...] level of functioning ? Insight:??limited ? Judgment:??limited [place] Suicide Risk Scale (most recently completed): Wish [...] INR Thyroid: No results found for: TSH, [id number], TT4 Lipids and HgbA1C: No results found for: CHLPL, HDL, CHOLHDL, LDLCHOL, LDLDIRECT, TRIG No results found for: HA1C Vit Lvls: No results found for: [id number], SFOLATE UA: No results found for: GLUCOSEU, [...] mental health prescriber near her home in [place] Current Therapist in process of connecting patient [...] Luis Glez MD 01/14/2019 Associated attestation - Loer Ryan MD - 01/14/2019 2:45 PM EST [...] coordinating discharge for this patient and included benb-ik-ordoovfzeyfhe and exam, explanation of after visit instructions [...] Pt was quiet though attentive. SALIMA PEREZ, [facility] 01/13/2019 Patient attended the following activities: ____Walk __x__Workshop Workshop facilitated by PT/OT gentle movement and stretching. ____Pet visit Additional pertinent information: Barby Sheridan RN - 01/13/2019 8:14 AM EST VM [...] concerns with patient's treatment team this morning. Lore Peña MD - 01/13/2019 8:05 AM EST Psychiatry [...] leave him after she is discharged from [facility] -On interview today, patient states that she [...] rate and normal rhythm ? Language:??fluent in paraguayan ? Mood:??Good. ? Affect:??calm and cooperative and [...] level of functioning ? Insight:??limited ? Judgment:??limited [place] Suicide Risk Scale (most recently completed): Wish [...] INR Thyroid: No results found for: TSH, F3RUIQI, TT4 Lipids and HgbA1C: No results found for: CHLPL, HDL, CHOLHDL, LDLCHOL, LDLDIRECT, TRIG No results found for: HA1C Vit Lvls: No results found for: [id number], SFOLATE UA: No results found for: GLUCOSEU, [...] emergency admission paperwork completed and faxed to [facility] on 01/10/2019 given she was demanding to [...] mental health prescriber near her home in [place] Current Therapist in process of connecting patient [...] anytime about Isaura especially as DC nears. [phone] cell, PCP Dr. Bobby. I shared this information with the patient 3 times throughout the day and she expressed ongoing desire to leave, raising her voice at me, pointing at me and yelling if you were in my shoes for 5 minutes you would understand, rolling her eyes and sharing that her prizer hand was coming this afternoon and the staff [...] team. Currently is RTU status, waiting transferto [facility]. Will continue to assess status and ability [...] rate and normal rhythm ? Language:??fluent in paraguayan ? Mood:??better. ? Affect:??calm and cooperative and [...] level of functioning ? Insight:??limited ? Judgment:??limited [place] Suicide Risk Scale (most recently completed): Wish [...] INR Thyroid: No results found for: TSH, H2MKBAH, TT4 Lipids and HgbA1C: No results found for: CHLPL, HDL, CHOLHDL, LDLCHOL, LDLDIRECT, TRIG No results found for: HA1C Vit Lvls: No results found for: [id number], SFOLATE UA: No results found for: GLUCOSEU, [...] emergency admission paperwork completed and faxed to [facility] on 01/10/2019 given she was demanding to [...] mixed messages about the events over S atday. Aware of IEA. BP 148/83 Pulse (!) [...] Psychiatry Inpatient - Progress Note 01/11/2019 ID:??Isaura Arellano??is a 68 y.o.??female??admitted on 01/01/2019??for [...] medications. Also met with and explained the [facility] emergency admission process. Per nursing report - [...] rate and normal rhythm ? Language:??fluent in paraguayan ? Mood:??I'm here. ? Affect:??calm and cooperative [...] level of functioning ? Insight:??limited ? Judgment:??limited [place] Suicide Risk Scale (most recently completed): Wish [...] anything to end your life?: No (01/11/19 0590) Current Medications: Scheduled: ??? prazosin 1 mg [...] INR Thyroid: No results found for: TSH, [id number], TT4 Lipids and HgbA1C: No results found for: CHLPL, HDL, CHOLHDL, LDLCHOL, LDLDIRECT, TRIG No results found for: HA1C Vit Lvls: No results found for: [id number], SFOLATE UA: No results found for: GLUCOSEU, [...] emergency admission paperwork completed and faxed to [facility] on 01/10/2019 given she was demanding to [...] Psychiatry Inpatient - Progress Note 01/10/2019 ID:??Isaura Hanh Arellano??is a 68 y.o.??female??admitted on 01/01/2019??for worsening [...] rate and normal rhythm ? Language:??fluent in paraguayan ? Mood:??Not happy to be here. I'm [...] level of functioning ? Insight:??limited ? Judgment:??limited [place] Suicide Risk Scale (most recently completed): Wish [...] INR Thyroid: No results found for: TSH, [id number], TT4 Lipids and HgbA1C: No results found for: CHLPL, HDL, CHOLHDL, LDLCHOL, LDLDIRECT, TRIG No results found for: HA1C Vit Lvls: No results found for: [id number], SFOLATE UA: No results found for: GLUCOSEU, [...] emergency admission paperwork completed and faxed to [facility] today given she was demanding to leave [...] Discussed a referral to Dr. Hickey at [facility] since pt does not think she can qualify for services at [facility]. Pt is aware that she would [...] her mood Interval History: (1,1,4) Narrative: Patient slept overnight 7 hours, would [...] rate and normal rhythm ? Language:??fluent in paraguayan ? Mood:??angry ? Affect:??mood-congruent ? Thought Process:??linear [...] level of functioning ? Insight:??limited ? Judgment:??limited [place] Suicide Risk Scale (most recently completed): Wish [...] INR Thyroid: No results found for: TSH, [id number], TT4 Lipids and HgbA1C: No results found for: CHLPL, HDL, CHOLHDL, LDLCHOL, LDLDIRECT, TRIG No results found for: HA1C Vit Lvls: No results found for: [id number], SFOLATE UA: No results found for: GLUCOSEU, [...] patient's condition and/or diagnostic study. * Giovanny Bob, RN - 01/09/2019 12:29 AM EST Pt [...] yelling and throwing things in her room whilesband visited, Pt was angry thinking staff had [...] and normal rhythm ? Language: fluent in paraguayan ? Mood: focused on the pain in [...] functioning ? Insight: limited ? Judgment: limited [place] Suicide Risk Scale (most recently completed): Wish [...] HA1C Vit Lvls: No results found for: [id number], SFOLATE UA: No results found for: GLUCOSEU, [...] would be helpful or (3) IEA to [facility] as she does not have the capacity [...] the patient's condition and/or diagnostic study. * Tell, Neymar E, - 01/08/2019 10:52 AM EST Inpatient Daily [...] on stretcher accompanied by transpo and associate director of nursing * Giovanny Bob RN - 01/08/2019 1:19 AM EST Pt is having nightmares. We may want to consider Prazosin for nights where she is not having ECT. * Giovanny Bob RN - 01/08/2019 12:30 AM EST Pt [...] and normal rhythm ?? Language: fluent in paraguayan ?? Mood: focused on the pain in [...] functioning ?? Insight: limited ?? Judgment: limited [place] Suicide Risk Scale (most recently completed): Wish [...] HA1C Vit Lvls: No results found for: [id number], SFOLATE UA: No results found for: GLUCOSEU, [...] inbetter mood and later apologized to this residential mortgage underwriter. * Neymar Moya MS - 01/06/2019 2:21 PM EST Inpatient [...] Pt was quiet though attentive. SALIMA PEREZ, [facility] 01/06/2019 Inpatient Daily Group Note Group: Goals: [...] shape to start the plan today. * Lucie Travis PARTS PERSON - 01/06/2019 9:56 AM EST OFFICE OF CARE MANAGEMENT PSYCHOSOCIAL ASSESSMENT Present at Interview: Patient Date: January 06, 2019 1. Referral request and/or presenting problem(s): Patient is a 68 year old MWF, who presents at [facility] to address her worsening mood symptoms, increasing [...] Remaining siblings are Keena age 75 in [place]., Casey age 73 and Vicky age 72 in [place]. Patient has minimal contact with Keena, no contact with Casey and visits Vicky (in a fci) when she can. Patient was born and raised in [place] and described childhood as crazy place. Father [...] spiritual support: , friends, not active in jain. 6. 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 Describes both rqzokl-qr-eckqgs including the thoughts of wanting to murder [...] and normal rhythm ?? Language: fluent in paraguayan ?? Mood: doing ok ?? Affect: full, [...] functioning ?? Insight: limited ?? Judgment: limited [place] Suicide Risk Scale (most recently completed): Wish [...] HA1C Vit Lvls: No results found for: [id number], SFOLATE UA: No results found for: GLUCOSEU, [...] the weather is good. 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 NEYMAR MOYA MS 01/05/2019 Patient attended the following activities: ____Walk __x__Workshop facilitated by multimedia artist with the goal to write and/or make [...] and normal rhythm ?? Language: fluent in paraguayan ?? Mood: doing ok ?? Affect: full, [...] functioning ?? Insight: limited ?? Judgment: limited [place] Suicide Risk Scale (most recently completed): Wish [...] HA1C Vit Lvls: No results found for: [id number], SFOLATE UA: No results found for: GLUCOSEU, [...] GI NEURO PSYCH See above. Physical Exam: (,6,9) Vitals (24hr Range): Temp: [36.4 ??C (97.5 [...] HA1C Vit Lvls: No results found for: [id number], SFOLATE UA: No results found for: GLUCOSEU, [...] is going on. After group talked with residential mortgage underwriter about being more irritable and upset that [...] disorder, mixed episode Interval History: (1,1,4) Depression 3/ Anxiety 02/01 Sleep 4.75 hours Wishing not to make [...] HA1C Vit Lvls: No results found for: [id number], SFOLATE UA: No results found for: GLUCOSEU, [...] 01/02/2019 8:23 PM EST Spoke with , Gagna Arellano, on the phone and then followed [...] has been followed by a neurologist in [facility]. Additionally, they mentioned additional history of [...] most contacts. Uses profanities quite freely. This residential mortgage underwriter spoke with patient this morning as it [...] 38yo and 44 yo Employment: retired Residence: [address] [place], [place] [id number] Outpatient Providers: (include location) Current Mental Health Prescriber: PCP Current Therapist: none PCP: Aurelia Bobby MD Chief Complaint: 68 y.o. Female presents to [facility] with worsening mood symptoms and suicidal ideations. [...] find it helpful as she and the licensed master social worker had a verbal altercation. Currently, the [...] Once Brian Singleton MD 0.5mg at 01/01/19 5421 Current Outpatient Medications on File Prior to [...] TECHNIQUE performed by Viola Prieto MD at [facility] ??? PRO UP GI ENDOSCOPY, REMV TUMOR, SNARE N/A 10/29/2018 EGD, W REMOVAL TUMOR/POLYPS/LESIONS BY SNARE TECHNIQUE performed by Viola Prieto MD at [facility] ??? PRO UPPER GI ENDOSCOPY, BIOPSY N/A 10/01/2018 EGD WITH BIOPSY (WRVU 2.49) performed by Viola Prieto MD at [facility] ??? PRO UPPER GI ENDOSCOPY, BIOPSY N/A 10/29/2018 EGD WITH BIOPSY (WRVU 2.49) performed by Viola Prieto MD at [facility] Family Medical/Psychiatric History: No one dae [...] cough GI no vomiting and no constipation /PSYCHOLOGICAL ASSISTANT (include LMP if applicable) No polyuria and No dysuria MSK No muscle weakness and No myalgias SKIN No rash NEURO no headache, no numbness and no weakness PSYCH See above ENDO No diaphoresis HEME/LYMPH No easy bleeding ALL/IMMUNO No symptoms of Sinustis and No symptoms of Environmental Allergies Physical Exam: Vitals Admission (Current) from 01/01/2019 in [facility] Weight 53.5 kg (118 lb) [...] and normal rhythm ?? Language: fluent in paraguayan and with paraphasic errors ?? Mood: I [...] HA1C Vit Lvls: No results found for: [id number], SFOLATE UA: No results found for: GLUCOSEU, [...] a 68 y.o. Female who presents to [facility] with suicidal ideations with plan to hang [...] mg Toradol 15 mg ECT parameters: Bitemporal 31 second motor seizure 56-62 second EEG [...] a MECTA device at the following parameters: 12/14/0.75/800 0 sec EEG seizure 12/14/1.5/800 0 sec EEG seizure 12/14//800 90 sec EEG seizure, 54 sec motor seizure Patient was stabilized and appeared to tolerate the procedure. Complications: None Changes/recommendations/parameters for next treatment: Bitemporal Next treatment date: TBD documented in this [...] as ordered, group therapy, discharge planning- ? [facility]. INDIVIDUALIZED FALL PREVENTION INTERVENTIONS: Patient-specific fall risk [...] Ongoing (Interventions Implemented as Appropriate) 01/12/19 1131 01/13/19918 Individualization Patient Specific Preferences -- pt. angry [...] List(s) Given -- no Community Agency Name(s) [facility] Hospital -- Equipment Needed After Discharge -- [...] Appropriate) 01/14/19 0930 Interdisciplinary Rounds/Family Conf Participants case advocate;nursing;patient;physician Problem: Coping, Compromised Individual (Adult,Obstetrics,Pediatric) Goal: Effective [...] thoughts. PLAN MOVING FORWARD: Continue to monitor, career development counselor and encourage. Medications administered as prescribed [...] Appropriate) 01/13/19 09 Interdisciplinary Rounds/Family Conf Participants case advocate;nursing;patient;physician OUTCOME EVALUATION NOTE: OUTCOME SUMMARY: Patient was up early this am. She was on the phone yelling at her . She had also yelled at another patient on the unit. She is rude on contact, much sarcasm when asked. She denies thoughts of wanting to harm herself or others. She did calm down later and was apologetic to residential mortgage underwriter for her behavior but again got angry and was disruptive. Patient has attended all groups today and has not had any disruptive behavior. She was visited by her and the visit went well. PLAN MOVING FORWARD: Monitor mood and behavior on the unit. IEA to [facility] when bed available. INDIVIDUALIZED FALL PREVENTION INTERVENTIONS: [...] Ongoing (Interventions Implemented as Appropriate) 01/12/19 1131 01/12/191999 Coping/Psychosocial Plan Of Care Reviewed With -- [...] Choice List(s) Given no Community Agency Name(s) [facility] Equipment Needed After Discharge none Discharge Facility/Level Of Care Needs independent living facility Current Discharge Risk abuse (physical, emotional, sexual, negligence);cognitively impaired;psychiatric illness Discharge Disposition still a patient Current Health Outpatient/Agency/Support Group Needs psychiatric facility (specify) Anticipated Changes Related to Illness none Activity/Self Care Review of Systems Equipment Currently Used at Home none Living Environment Transportation Available none Goal: Interdisciplinary Rounds/Family Conf 01/12/195 Interdisciplinary Rounds/Family Conf Participants patient;nursing Problem: Coping, [...] Isaura labile, I have a h/a from [facility] and anxious about meeting with the team [...] and RTU. PLAN MOVING FORWARD: Transfer to [facility] on list unknown at this time [...] Choice List(s) Given no Community Agency Name(s) [facility] Equipment Needed After Discharge none Discharge [...] Appropriate) 01/12/19 1131 Interdisciplinary Rounds/Family Conf Participants case advocate;social work/services;physician;patient;nursing Problem: Coping, Compromised Individual (Adult,Obstetrics,Pediatric) Intervention: [...] She had Tramadol at 0900 for headache /10 with good effect. She has showered and has been working on art work in her room. Patient has been quiet and pleasant on contact from 0900 this am. Her visited and they played cribbage. There was no disruptive behavior noted during [...] to harm herself or others. She told residential mortgage underwriter that she was leaving AMA today. She was seen by Dr. Yu and was told she was not allowed to leave and an IEA would be filed for her to go to [facility] if sheinsisted on leaving. She has been loud and disruptive since finding out this information. She is irritable and has been calling her and yelling at him. She has had PRN clonazepam, propranololand hydroxyzine. She has been using the exercise bike in between phone calls. PLAN MOVING FORWARD: IEA to [facility] per Dr. Yu. RTU INDIVIDUALIZED FALL PREVENTION [...] plans to ask MD tomorrow. Joking with residential mortgage underwriter and peers. Pt denies depression, anxiety, pain, [...] that her only options were here or [place]. Pt was dropping f bombs with regularity. [...] nightmares. PLAN MOVING FORWARD: Continue to monitor, career development counselor and encourage. Medications administered as prescribed [...] Goal: Fall Prevention-Safe Patient Handling 01/07/19222401/08/199 01/08/19 1029 Restraint Interventions Safety Promotion/Fall Prevention -- -- [...] Rounds/Family Conf 01/08/191028 Interdisciplinary Rounds/Family Conf Participants case advocate;nursing;patient;physician Problem: Coping, Compromised Individual (Adult,Obstetrics,Pediatric) Intervention: Support/Enhance Coping Strategies 01/08/191028 Coping Strategies Supportive Measures active listening utilized;counseling provided;goal setting facilitated;positivereinforcement provided;problem solving facilitated;verbalization of feelings encouraged;relaxation techniques promoted Coping/Psychosocial Interventions Environmental Support calm environment promoted Goal: Effective Coping Patient will demonstrate the desired outcomes by discharge/transition of care. 01/08/191028 Coping, Compromised Individual (Adult,Obstetrics,Pediatric) Effective Coping making progress toward outcome * Plan of Care - Giovanny Bob, RN - 01/07/2019 10:33 PM EST Problem: [...] difficulty. PLAN MOVING FORWARD: Continue to monitor, career development counselor and encourage. Medications administered as prescribed [...] Control Outcome: Ongoing (Interventions Implemented as Appropriate) 01/07/192224 Coping Strategies Supportive Measures active listening [...] Outcome: Ongoing (Interventions Implemented as Appropriate) 01/06/19 9324 Coping/Psychosocial Plan Of Care Reviewed With patient [...] cooperative. PLAN MOVING FORWARD: Continue to monitor, career development counselor and encourage. Medications administered as prescribed [...] of peers. Patient awake most of the archivist military history, Saturday, 01/05 coloring quietly in room. Rates: [...] a WEEK Goal: Fall Prevention-Safe Patient Handling 01/04/19 17301/04/191924 Restraint Interventions Safety Promotion/Fall Prevention -- fall [...] Review Outcome: Ongoing (Interventions Implemented as Appropriate) 01/04/191735 Coping/Psychosocial Plan Of Care Reviewed With patient [...] patient, patient and went through belongings with MANAGER MALL, sending home things that were not allowed [...] is for PRN BID, last administration was 2017, this RN felt it was too soon [...] min checks, ETG Goal: Individualization & Mutuality 01/01/19213601/02/19 1351 01/03/19 1439 Individualization Patient Specific Preferences [...] -- -- Goal: Fall Prevention-Safe Patient Handling 02193601/03/192124 Restraint Interventions Safety Promotion/Fall Prevention -- fall [...] * Plan of Care - Elda Kay Ismael - 01/03/2019 3:32 PM EST Problem: Patient [...] desired outcomes by discharge/transition of care. 01/03/19 143 Coping, Compromised Individual (Adult,Obstetrics,Pediatric) Effective Coping making [...] Mutuality Outcome: Ongoing (Interventions Implemented as Appropriate) 01/01/197 01/02/19 0059 01/02/19 1351 Individualization Patient Specific [...] Ongoing (Interventions Implemented as Appropriate) 01/02/19 1351 Interdisciplinary Rounds/Family Conf Participants case advocate;patient;social work/services;nursing;physician Problem: Coping, Compromised Individual (Adult,Obstetrics,Pediatric) Goal: Effective Coping Patient will demonstrate the desired outcomes by discharge/transition of care. Outcome: Ongoing (Interventions Implemented as Appropriate) 01/02/19 1351 Coping, Compromised Individual (Adult,Obstetrics,Pediatric) Effective Coping making [...] understanding of illness 2 Work with Patient Crown Blocker to create and implement aftercare plan 3 [...] ATTENDING PHYSICIAN Lore Ryan MD NURSING PATIENT INCOMING INSPECTOR Anahi Hunter RN THERAPIST SOLUTION SPECIALIST Lucie Travis PLUMBER HELPER * Initial Assessments - Anahi Hunter RN - 01/02/2019 12:07 PM EST Initial Patient Assessment Anahi Hunter RN reviewed record and discussed patient with Care Team on 01/02/2019. Introduced/reviewed role; services accepted. Isaura Arellano is a 68 y.o. year old female (1950) presenting to [address] [place] [address] for treatment with Major depressive disorder [F32.9] [...] the house apart looking for her hu carmen's gun, a 22 caliber rifle with thoughts [...] ID Effective Group Num 1. MEDICARE - [place]* ISAURA ARELLANO 1950 Female Self [id number] 08/25/[address] 2. MEDICARE - * ISAURA ARELLANO 1950 Female Self [id number] 08/25/[address] Prescription Coverage: Confirmed Preferred Pharmacy: [facility] - [place], [place] - [address] [facility] [address], [place] [address] Other: (Ex. Clinical Abstractor Care, Worker???s Comp., Automobile Liability, etc.) HOME ENVIRONMENT / SOCIAL & FAMILY SUPPORTS/COMMUNITY RESOURCES:(living situation, family constellation, Caregivers, current use & knowledge of community resources, etc.) Extended Emergency Contact Information Primary Emergency Contact: Gagan Arellano Address: [address] [place] [address] [facility] Relation: Spouse Secondary Emergency Contact: Nubia Garcia Address: [address] [place] [id number] [facility] Mobile Relation: Child PRIMARY CARE PHYSICIAN: Aurelia Bobby MD [address] [facility] [address] MENTAL HEALTH PRESCRIBER: Aurelia Bobby Current Decision-Making [...] care, need for family meeting, need for field test engineer, etc.) Safe effective coping skills Functional Status [...] Any special transportation needed at D/C to [address] [place] [phone]? No Rehab/SNF: No New community resources referrals needed? Mental health services Other: PLAN: PCM will continue to monitor progress, follow for continuity of care and assist with transition of care planning while hospitalized. Anahi Hunter RN PAGER: [phone] * Plan of Care - Elizabeth Hassan [...] with search, irritable sarcastic and swearing at MANAGER MALL. Throwing paper and pens. called and demanded he get me out of this f*&%ing place.Apparently he declined and conversation ended. When she was interviewed in her room, her behavior was more appropriate after she was asked to be more respectful and not swear. Interview completed andpt apologized to MANAGER MALL. B/p significantly high on admission to unit [...] 4:30 PM EDT Office Visit Dermatology at [facility] [address] [place] [address] Ruma Echavarria MD [facility] DR ABDIRAH[place] [address] documented as of this encounter Procedures Procedure Name Priority Date/Time Associated Diagnosis Comments ECT (WRVU 2.5) 01/08/2019 9:02 AM EST ECT F32.9 TROPONIN STAT 01/07/2019 3:16 PM EST EKG 12-LEAD Routine 01/07/2019 2:53 PM EST Hypertension, unspecified type EKG 12-LEAD Routine 01/05/2019 5:22 PM EST Depression, unspecified depression type Hypertension, unspecified type documented in this encounter Results * Troponin (01/07/2019 3:16 PM EST) Troponin-T <0.01 0.00 - 0.00 ng/mL [facility] Comment: The 99th percentile for Troponin T is less than 0.01 ng/mL, any detectable cTnT concentration using this assay should be considered elevated. According to the third universal definition of myocardial infarction the following criteria with a clinical presentation consistent with acute myocardial ischemia meets the diagnosis for a myocardial infarction ([place]). Detection of a rise and/or fall of cTnT, with at least one value greater than the 99th percentile (> or = 0.01) and with at least one of the following ?? Symptoms of ischemia ?? New or presumed new significant AI-tnysntl-C wave (ST-T) changes or new left bundle [...] additional sample may be indicated. Reference: Third [place] Definition of Myocardial Infarction. Journal of the [place] College [employer] 2012;60:1581-98 Blood specimen (specimen) 01/07/2019 3:16 PM EST 01/07/2019 3:30 PM EST Narrative Resulting Agency Comment Spec In Lab Lore Ryan MD CHEMISTRY ORDERABLES [facility] [place] [address] * EKG 12 Lead (01/07/2019 2:53 PM EST) Ventricular rate 55 BPM MUSE SYSTEM Atrial Rate 55 BPM MUSE SYSTEM P-R Interval 148 ms MUSE SYSTEM QRS Duration 90 ms MUSE SYSTEM Q-T Interval 420 ms MUSE SYSTEM QTC Calculated (Bezet) 401 ms MUSE SYSTEM Calculated P [place] 55 degrees MUSE SYSTEM Calculated R [place] 60 degrees MUSE SYSTEM Calculated T [place] 44 degrees MUSE SYSTEM INTERPRETATION Sinus bradycardia Possible Left atrial enlargement Left ventricular hypertrophy Nonspecfic ST segment changes Abnormal ECG When compared with ECG of 05-JAN-2019 17:22, No significant change was found Confirmed by MD MICKI, BK ([id number]) on 01/08/2019 8:32:13 AM MUSE SYSTEM 01/07/2019 2:53 PM EST 01/08/2019 8:32 AM EST Lore Rayn MD ECG ORDERABLES MUSE SYSTEM * EKG 12 Lead (01/05/2019 5:22 PM EST) Ventricular rate 61 BPM MUSE SYSTEM Atrial Rate 61 BPM MUSE SYSTEM P-R Interval 134 ms MUSE SYSTEM QRS Duration 88 ms MUSE SYSTEM Q-T Interval 394 ms MUSE SYSTEM QTC Calculated (Bezet) 396 ms MUSE SYSTEM Calculated P [place] 60 degrees MUSE SYSTEM Calculated R [place] 68 degrees MUSE SYSTEM Calculated T [place] 39 degrees MUSE SYSTEM INTERPRETATION Normal sinus rhythm Left ventricular hypertrophy Nonspecific ST abnormality consider ischemia Abnormal ECG No previous ECGs available Confirmed by MD HERNÁN, LEONOR ([id number]) on 01/05/2019 6:21:55 PM MUSE SYSTEM 01/05/2019 5:22 PM EST 01/05/2019 6:21 PM EST Lore Ryan MD ECG ORDERABLES [facility] documented in this encounter Visit Diagnoses [...] Oral, 2 TIMES DAILY PRN, Starting on Sat01/06/19 at 1722, Until Sat01/14/19 at 2005, Constipation, [...] Deandra Aguilar RN) 2028 (Given - Provider: Giovanyn Bob RN) lamoTRIgine (LaMICtal) tablet 25 mg [...] on Sat01/07/19 at 1730, Until Sat01/14/19 at 2004, Pain, Administer for pain (Not to exceed 4000 mg per 24 hours), Routine clonazePAM (KlonoPIN) tablet 0.5 mg 0.5 mg, Oral, 2 TIMES DAILY PRN, Starting on Sat01/02/19 at 1832, Until Sat01/14/19 at 2004, Anxiety, or irritability, Please hold on evenings before ECT, Routine 0749 (Given - Provider: Concepcion Samuel RN)1426 (Given - Provider: Rosa Jimenez RN) 0825 (Given - Provider: Kim Espinoza RN) 0816 (Given - Provider: Brigid Murguia RN) hydrOXYzine (ATARAX) tablet 25 mg 25 mg, Oral, 2 TIMES DAILY PRN, Starting on Sat01/10/19 at 1113, Until Sat01/14/19 at 2004, Anxiety, [...] Routine 2028 (Given - Provider: Deandra Aguilar, THAIS) 2218 (Given - Provider: Giovanny Bob, THAIS) ibuprofen (ADVIL;MOTRIN) tablet 600 mg 600 mg, Oral, EVERY 6 HOURS PRN, Starting on Sat01/07/19 at 1219, Until Sat01/14/19 at 2004, Pain, Administer orally with milk or food to minimize GI irritation. Maximum dose of 3200 mg from all sources in 24 hours, Routine 1718 (Given - Provider: Concepcion Samuel, THAIS) 0834 (Given - Provider: Kim Espinoza, THAIS)2028 (Given - Provider: Giovanny Bob, THAIS) 0236 (Given - Provider: Giovanny Bob, THAIS)1021 (Given - Provider: Brigid Murguia RN) melatonin tablet 3 mg 3 mg, Oral, NIGHTLY PRN, Starting on Sat01/05/19 at 1222, Until Sat01/14/19 at 2004, sleeplessness, Routine nicotine polacrilex (NICORETTE) gum 2 mg 2 mg, Buccal, EVERY 2 HOURS PRN, Starting on Sat01/02/19 at 0625, Until Sat01/14/19 at 2004, Smoking cessation, Chew gum slowly. Do not swallow. Maximum of 48 mg/day., Routine ondansetron (ZOFRAN-ODT) oral disintegrating tablet 4 mg 4 mg, Oral, EVERY 8 HOURS PRN, Starting on Sat01/07/19 at 1108, Until Sat01/14/19 at 2004, Nausea, Routine propranolol (INDERAL) tablet 10 mg [...] Oral, EVERY 6 HOURS PRN, Starting on 01/07/19 at 1224, Until Sat01/14/19 at 2004, Pain, Please tylenol first, Routine 0107 (Given - Provider: Deandra Aguilar, THAIS)0826 (Given - Provider: Concepcion Samuel, THAIS)1516 (Given - Provider: Concepcion Samuel, THAIS)202 (Given - Provider: Deandra Aguilar, THAIS) 122 (Given - Provider: Brigid Murguia, THAIS)181 (Given - Provider: Kmi Espinoza RN) 122 (Given - Provider: Brigid Murguia, THAIS) traZODone (DESYREL) tablet 50 mg 50 mg, Oral, NIGHTLY PRN, Starting on 01/12/19 at 1042, Until Sat01/14/19 at 2004, Sleep, Routine 2028 (Given - Provider: Deandra Aguilar, RN) documented in this encounter Care Teams Supervisor Color Paste Mixing Relationship Specialty Start Date End Date Aurelia Bobby MD [address] [place] [address] [address] PCP - General 08/31/14 01/23/24 documented as of this encounter
--- OUTSIDE RECORDS SUMMARY | 2024-07-15 14:29 | XMS_ITS | Encounter Summary ---
[place] [address] Care Team Providers Care Huc Ob Name Role Phone Aurelia Bobby MD Primary Care Provider [phone] Encounter Details Date Type Department Care Team (Late st Contact Info) Description 11/27/2019 [place] [id number] Barby Jaramillo Social History Tobacco Use Types Packs/Day Years [...] encounter Miscellaneous Notes * Telephone Encounter - Barby Jaramillo - 11/30/2019 4:26 PM EST LVM x2 To call and schedule an EGD CHRISTY * Telephone Encounter - Barby Jaramillo - 11/27/2019 5:15 PM EST I just spoke with the patient, she was driving and asked me to call her back on Saturday. documented in this encounter Plan of Treatment Upcoming Encounters Date Type Department Care Team (Late st Contact Info) Description 09/01/2024 4:30 PM EDT Office Visit Dermatology at [facility] [address] [place] [address] Ruma Echavarria MD [facility] DR ABDIR[address] [place] [address] documented as of this encounter Visit Diagnoses Not on filedocumented in this encounter Care Teams Huc Ob Relationship Specialty Start Date End Date Aurelia Bobby MD [address] [place] [address] PCP - General 08/31/14 01/23/24 documented as of this encounter
--- OUTSIDE RECORDS SUMMARY | 2024-07-15 14:29 | XMS_ITS | Encounter Summary ---
Author Organization [facility] [place] [address] Care Team Providers Care Machine Stacker Name Role Phone Aurelia Bobby MD Primary Care Provider [phone] Encounter Details Date Type Department Care Team (Late Contact Info) Description 09/22/2019 Ancillary Procedure [place] [address] Tres Graham MD [facility] [place] [address] Social History Tobacco Use Types Packs/Day Years [...] 4:30 PM EDT Office Visit Dermatology at [facility] [address] [place] [address] Ruma Echavarria MD [facility] [place] [address] documented as of this encounter Procedures Procedure Name Priority Date/Time Associated Diagnosis Comments FILM LIBRARY STORAGE ONLY CT CHEST Routine 09/22/2019 12:00 AM EDT documented in this encounter Results * Film Library- Storage Only CT Chest (09/22/2019 12:00 AM EDT) Narrative [facility] - 09/30/2019 9:26 AM EST This exam is auto-finalizing. It's purpose is for storage only. Tres Graham MD IMG FILM LIBRARY ORDERABLES [place], [place] documented in this encounter Visit Diagnoses Not on filedocumented in this encounter Care Teams Machine Stacker Relationship Specialty Start Date End Date Aurelia Bobby MD [address] [place] [address] [address] [place] [address] PCP - General 08/31/14 01/23/24 documented as of this encounter
--- OUTSIDE RECORDS SUMMARY | 2024-07-15 14:29 | XMS_ITS | Encounter Summary ---
[facility] Organization [facility] [place] [address] Care Team Providers Care Metal Machinist Name Role Phone Aurelia Bobby MD Primary Care Provider [phone] Reason for Visit * Reason Comments Follow-up Lung Cancer Encounter Details Date Type Department Care Team (Late st Contact Info) Description 01/21/2019 1:15 PM EST Office Visit Hematology [place] [address] Tres Graham MD [facility] [place] [address] Eslie Cruz APRN [facility] DR HEMATOLOGY-[place] [address] Non-small cell carcinoma of left lung, stage [...] Sign Reading Time Taken Comments Blood Pressure 126/92 01/21/2019 1:21 PM EST Pulse 16 01/21/2019 1:21 PM EST Temperature 36.3 ??C (97.3 ??F) 01/21/2019 1:21 PM ES T Respiratory Rate 20 01/21/2019 1:21 PM EST Oxygen Saturation 98% 01/21/2019 1:21 PM EST Inhaled Oxygen Concentration - - Weight 53.3 kg (117 lb 6.4 oz) 01/21/2019 1:21 P M EST Height 162.3 cm (5' 3.9) 01/21/2019 1:21 PM EST Body Mass Index 20.22 01/21/2019 1:21 PM EST documented in this encounter Progress Notes * Ciro Cueva - 01/21/2019 1:15 PM EST Thoracic Oncology Follow-up Evaluation HPI: 64 year old female with stage 1B lung adenocarcinoma [id number], s/p JOHNNY lobectomy on 08/09/2014 (surgery revealed a 1.8 cm moderately differentiated adenocarcinoma. No LVI. +visceral pleura invasion. Closest margin 3.5cm. 3 hilar LNs negative, a level 5 LN negative, 10L sump node negative, level 11 LN negative, level 7 LN negative, level 9 LN negative). Last seen 09/18/17. Since the last visit, she was seen in the ER for SI and worsening depression, and was hospitalized. She was discharged when symptoms improved.I discussed her case with the inpatient team. She feels fine today. She is OK at home. Weight is stable since the last visit, but has lost about 20 lb unintentionally since 1 year ago. She attributes this to having no appetite, states that no foods appeal to her. Low appetite is attributed to stopping antidepressants. She only eats because she is supposed to. No breathing changes, stable cough. No pain, chronic headaches unchanged from baseline. Bowel movements are less frequent since she started on lamictal. No bleeding, no dysuria. Carpel tunnel syndrome is stable. No changes in vision, heartburn, N/V, abd pain, diarrhea or constipation, urinary complaints, lightheadedness or dizziness,balance difficulties, focal weakness, sensory complaints, bleeding, rash, new or worsening pain. Notes some difficulty swallowing bread, otherwise no swallowing difficulties (this is not new or different from prior). She is not smoking. PMH HTN DJD Asthma Depression PSH S/p [...] 2 grown children. 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 Physical Examination Vitals: 01/21/19 1321 BP: (!) 126/92 Patient Position: Sitting Pulse: (!) 16 Resp: 20 Temp: 36.3 ??C (97.3 ??F) TempSrc: Temporal SpO2: 98% Weight: 53.3 kg (117 lb 6.4 oz) Height: 162.3 cm (5' 3.9) Wt Readings from Last 3 Encounters: 01/21/19 53.3 kg (117 lb 6.4 oz) 01/11/19 54.4 kg (120 lb) 01/01/19 53.5 kg (118 lb) General: alert, conversant, NAD HEENT: PERRLA, EOMI, mmm, no oropharyngeal lesions, erythema or exudates Neck: no palpable cervical or supraclavicular lymphadenopathy CVS: regular S1S2 without MRG Chest: CTAB, no crackles or wheezes, mildly decreased breath sounds throughout, scars are healing well Abdomen: soft, NT, ND, BS+ Extremities: no edema, no calf tenderness Neuro: ambulatory, CN 2-12 grossly intact, moves all 4 extremities Skin: no visible rashes, surgery scars present healed well, skin P/W/D Lab Results: Results for ISAURA MORGAN ( ) as of 01/24/2019 05:22 Ref. Range 01/01/2019 15:20 WBC Latest Ref Range: 4.0 - 9.5 x10(3)/mcL 7.3 RBC Latest Ref Range: 4.00 - 5.21 x10(6)/mcL 4.89 Hemoglobin Latest Ref Range: 11.7 - 15.5 gm/dL 15.7 (H) Hematocrit Latest Ref Range: 35.7 - 45.8 % 46.0 (H) MCV Latest Ref Range: 82.6 - 94.4 fL 94.1 MCH Latest Ref Range: 27.1 - 32.0 pg 32.1 (H) MCHC Latest Ref Range: 31.7 - 35.0 gm/dL 34.1 RDWSD Latest Ref Range: 37.0 - 46.0 fL 45.6 RDWCV Latest Ref Range: 11.5 - 14.1 % 13.2 Platelets Latest Ref Range: 145 - 357 x10(3)/mcL 243 MPV Latest Ref Range: 7.6 - 12.9 fL 9.3 nRBC % Auto Latest Units: % 0.0 nRBC Abs Auto Latest Ref Range: 0.000 - 0.000 x10(3)/mcL 0.000 Neutr Abs (ANC) Latest Ref Range: 1.70 - 6.10 x10(3)/mcL 3.73 Neutrophils % Latest Units: % 50.8 Immature Gran % Latest Units: % 0.30 Lymphocytes % Latest Units: % 37.0 Monocytes % Latest Units: % 8.6 Eosinophils % Latest Units: % 2.6 Basophils % Latest Units: % 0.7 Pavithra Gran Abs Latest Ref Range: 0.00 - 0.04 x10(3)/mcL 0.02 Lymphocytes Abs Latest Ref Range: 0.9 - 3.2 x10(3)/mcL 2.7 Monocyte Abs Latest Ref Range: 0.3 - 0.9 x10(3)/mcL 0.6 Eosinophils Abs Latest Ref Range: 0.0 - 0.4 x10(3)/mcL 0.2 Basophils Abs Latest Ref Range: 0.0 - 0.1 x10(3)/mcL 0.0 Sodium Latest Ref Range: 135 - 145 mmol/L 138 Potassium Latest Ref Range: 3.5 - 5.0 mmol/L 4.1 Chloride Latest Ref Range: 98 - 107 mmol/L 99 CO2 Latest Ref Range: 22 - 31 mmol/L 26 Anion Gap Latest Ref Range: 5 - 15 mmol/L 13 BUN Latest Ref Range: 8 - 18 mg/dL 16 Creatinine Latest Ref Range: 0.70 - 1.20 mg/dL 0.63 (L) eGFR Latest Ref Range: >=60 mL/min/1.73 m?? 93 eGFR Latest Ref Range: >=60 mL/min/1.73 m?? 108 Glucose Lvl Latest Ref Range: 65 - 199 mg/dL 107 Calcium Latest Ref Range: 8.5 - 10.5 mg/dL 9.8 Total Protein Latest Ref Range: 6.1 - 8.0 gm/dL 7.4 Albumin Latest Ref Range: 3.2 - 5.2 gm/dL 4.8 Total Bilirubin Latest Ref Range: 0.2 - 1.3 mg/dL 0.6 Bili, Direct Latest Ref Range: 0.0 - 0.3 mg/dL 0.2 Alk Phos Latest Ref Range: 40 - 104 unit/L 81 AST Latest Ref Range: 0 - 30 unit/L 16 ALT Latest Ref Range: 0 - 30 unit/L 11 Acetamin Lvl Latest Ref Range: 10 - 30 mg/L <5 (L) Salicylate Lvl Latest Units: mg/L <20 Ethanol Lvl Latest Ref Range: <=99 mg/L <100 TSH Latest Ref Range: 0.27 - 4.20 mlU/ML 1.83 Radiology: I personally reviewed a brain MRI dated 10/31/2018 showing no evidence of intracranial mass or enhancing disease in the brain. I personally reviewed a chest CT from 09/09/17 which is overall stable except for a slight increasein the enlargement of a subcarinal lymph node. A/P: A 66-year-old patient with history of resected stage IB non-small cell lung cancer who has no clinical evidence for recurrence. I counseled the patient about these results, their implications for theprognosis, as well as the available treatment options. The patient understands that despite completing all therapy, the risks for recurrence remain. While the risks decrease with time, they do not disappear and the patient will also remain at risk for a new primary cancer of the aerodigestive tract. Continued regular surveillance is recommended. I emphasized the importance of routine health maintenance through PCP. I advised her not to start smoking. Nutritional advice was given. There is no radiographic evidence for malignancy as a cause of her weight loss. We discussed a restaging PET/CT and the patient prefers to be followed with regular CT scans. We will schedule a CT scan for April of this year. RTC [address] scan. I advised to call if there are any fever, shortness of breath, new pain, weakness, bleeding or any other unusual medical symptoms. * Tres Graham MD - 01/21/2019 1:15 PM EST Thoracic Oncology Follow-up Evaluation HPI: 64 year old female with stage 1B lung adenocarcinoma [id number], s/p JOHNNY lobectomy on 08/09/2014 (surgery revealed a 1.8 cm moderately differentiated adenocarcinoma. No LVI. +visceral pleura invasion. Closest margin 3.5cm. 3 hilar LNs negative, a level 5 LN negative, 10L sump node negative, level 11 LN negative, level 7 LN negative, level 9 LN negative). Last seen 09/18/17. Since the last visit, she was seen in the ER for SI and worsening depression, and was hospitalized. She was discharged when symptoms improved.I discussed her case with the inpatient team. She feels fine today. She is OK at home. Weight is stable since the last visit, but has lost about 20 lb unintentionally since 1 year ago. She attributes this to having no appetite, states that no foods appeal to her. Low appetite is attributed to stopping antidepressants. She only eats because she is supposed to. No breathing changes, stable cough. No pain, chronic headaches unchanged from baseline. Bowel movements are less frequent since she started on lamictal. No bleeding, no dysuria. Carpel tunnel syndrome is stable. No changes in vision, heartburn, N/V, abd pain, diarrhea or constipation, urinary complaints, lightheadedness or dizziness,balance difficulties, focal weakness, sensory complaints, bleeding, rash, new or worsening pain. Notes some difficulty swallowing bread, otherwise no swallowing difficulties (this is not new or different from prior). She is not smoking. PMH HTN DJD Asthma Depression PSH S/p [...] 2 grown children. 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 Physical Examination Vitals: 01/21/19 1321 BP: (!) 126/92 Patient Position: Sitting Pulse: (!) 16 Resp: 20 Temp: 36.3 ??C (97.3 ??F) TempSrc: Temporal SpO2: 98% Weight: 53.3 kg (117 lb 6.4 oz) Height: 162.3 cm (5' 3.9) Wt Readings from Last 3 Encounters: 01/21/19 53.3 kg (117 lb 6.4 oz) 01/11/19 54.4 kg (120 lb) 01/01/19 53.5 kg (118 lb) General: alert, conversant, NAD HEENT: PERRLA, EOMI, mmm, no oropharyngeal lesions, erythema or exudates Neck: no palpable cervical or supraclavicular lymphadenopathy CVS: regular S1S2 without MRG Chest: CTAB, no crackles or wheezes, mildly decreased breath sounds throughout, scars are healing well Abdomen: soft, NT, ND, BS+ Extremities: no edema, no calf tenderness Neuro: ambulatory, CN 2-12 grossly intact, moves all 4 extremities Skin: no visible rashes, surgery scars present healed well, skin P/W/D Lab Results: Results for ISAURA MORGAN ( ) as of 01/24/2019 05:22 Ref. Range 01/01/2019 15:20 WBC Latest Ref Range: 4.0 - 9.5 x10(3)/mcL 7.3 RBC Latest Ref Range: 4.00 - 5.21 x10(6)/mcL 4.89 Hemoglobin Latest Ref Range: 11.7 - 15.5 gm/dL 15.7 (H) Hematocrit Latest Ref Range: 35.7 - 45.8 % 46.0 (H) MCV Latest Ref Range: 82.6 - 94.4 fL 94.1 MCH Latest Ref Range: 27.1 - 32.0 pg 32.1 (H) MCHC Latest Ref Range: 31.7 - 35.0 gm/dL 34.1 RDWSD Latest Ref Range: 37.0 - 46.0 fL 45.6 RDWCV Latest Ref Range: 11.5 - 14.1 % 13.2 Platelets Latest Ref Range: 145 - 357 x10(3)/mcL 243 MPV Latest Ref Range: 7.6 - 12.9 fL 9.3 nRBC % Auto Latest Units: % 0.0 nRBC Abs Auto Latest Ref Range: 0.000 - 0.000 x10(3)/mcL 0.000 Neutr Abs (ANC) Latest Ref Range: 1.70 - 6.10 x10(3)/mcL 3.73 Neutrophils % Latest Units: % 50.8 Immature Gran % Latest Units: % 0.30 Lymphocytes % Latest Units: % 37.0 Monocytes % Latest Units: % 8.6 Eosinophils % Latest Units: % 2.6 Basophils % Latest Units: % 0.7 Pavithra Gran Abs Latest Ref Range: 0.00 - 0.04 x10(3)/mcL 0.02 Lymphocytes Abs Latest Ref Range: 0.9 - 3.2 x10(3)/mcL 2.7 Monocyte Abs Latest Ref Range: 0.3 - 0.9 x10(3)/mcL 0.6 Eosinophils Abs Latest Ref Range: 0.0 - 0.4 x10(3)/mcL 0.2 Basophils Abs Latest Ref Range: 0.0 - 0.1 x10(3)/mcL 0.0 Sodium Latest Ref Range: 135 - 145 mmol/L 138 Potassium Latest Ref Range: 3.5 - 5.0 mmol/L 4.1 Chloride Latest Ref Range: 98 - 107 mmol/L 99 CO2 Latest Ref Range: 22 - 31 mmol/L 26 Anion Gap Latest Ref Range: 5 - 15 mmol/L 13 BUN Latest Ref Range: 8 - 18 mg/dL 16 Creatinine Latest Ref Range: 0.70 - 1.20 mg/dL 0.63 (L) eGFR Latest Ref Range: >=60 mL/min/1.73 m?? 93 eGFR Latest Ref Range: >=60 mL/min/1.73 m?? 108 Glucose Lvl Latest Ref Range: 65 - 199 mg/dL 107 Calcium Latest Ref Range: 8.5 - 10.5 mg/dL 9.8 Total Protein Latest Ref Range: 6.1 - 8.0 gm/dL 7.4 Albumin Latest Ref Range: 3.2 - 5.2 gm/dL 4.8 Total Bilirubin Latest Ref Range: 0.2 - 1.3 mg/dL 0.6 Bili, Direct Latest Ref Range: 0.0 - 0.3 mg/dL 0.2 Alk Phos Latest Ref Range: 40 - 104 unit/L 81 AST Latest Ref Range: 0 - 30 unit/L 16 ALT Latest Ref Range: 0 - 30 unit/L 11 Acetamin Lvl Latest Ref Range: 10 - 30 mg/L <5 (L) Salicylate Lvl Latest Units: mg/L <20 Ethanol Lvl Latest Ref Range: <=99 mg/L <100 TSH Latest Ref Range: 0.27 - 4.20 mlU/ML 1.83 Radiology: I personally reviewed a brain MRI dated 10/31/2018 showing no evidence of intracranial mass or enhancing disease in the brain. I personally reviewed a chest CT from 09/09/17 which is overall stable except for a slight increasein the enlargement of a subcarinal lymph node. A/P: A 66-year-old patient with history of resected stage IB non-small cell lung cancer who has no clinical evidence for recurrence. I counseled the patient about these results, their implications for theprognosis, as well as the available treatment options. The patient understands that despite completing all therapy, the risks for recurrence remain. While the risks decrease with time, they do not disappear and the patient will also remain at risk for a new primary cancer of the aerodigestive tract. Continued regular surveillance is recommended. I emphasized the importance of routine health maintenance through PCP. I advised her not to start smoking. Nutritional advice was given. There is no radiographic evidence for malignancy as a cause of her weight loss. We discussed a restaging PET/CT and the patient prefers to be followed with regular CT scans. We will schedule a CT scan for April of this year. RTC [address] scan. I advised to call if there are any fever, shortness of breath, new pain, weakness, bleeding or any other unusual medical symptoms. All medical record entries made by the Scribe were at my direction and personally dictated by me. Teri reviewed the chart and agree that the record accurately reflects my personal performance of the history, physical exam, assessment and plan. I have also personally directed, reviewed, and agree with the discharge instructions. 01/24/19 documented in this encounter Plan of Treatment Upcoming Encounters Date Type Department Care Team (Late st Contact Info) Description 09/01/2024 4:30 PM EDT Office Visit Dermatology at [facility] [address] [place] [address] Ruma Echavarria MD [facility] DR ABDIRAHMAN [place] [address] documented as of this encounter Visit Diagnoses Diagnosis Non-small cell carcinoma of left lung, stage 1 documented in this encounter Care Teams Metal Machinist Relationship Specialty Start Date End Date Aurelia Bobby MD [address] [place] [address] PCP - General 08/31/14 01/23/24 documented as of this encounter
--- OUTSIDE RECORDS SUMMARY | 2024-07-15 14:30 | XMS_ITS | Encounter Summary ---
Author Organization [facility] [place] [address] Care Team Providers Care Ob/Gyn Name Role Phone Aurelia Bobby MD Primary Care Provider [phone] Encounter Details Date Type Department Care Team (Latest Contact Info) Description 06/09/2018 - 06/09/2018 11:59 PM EDT Hospital Encounter [place] [id number] Elsie Cruz APRN [facility] HEMATOLOGY-[place] [address] Discharge Disposition: Home Social History Tobacco Use Types Packs/Day Years Used Date Smoking Tobacco: Former Cigarettes Q uit: 04/01/2004 Smokeless Tobacco: Never Alcohol Use Standard Drinks/Week Comments Yes 14 (1 standard drink = 0.6 oz pu re alcohol) Sex and Gender Information Value Date [...] mouth 2 times daily as needed. 09/15/2015 levothyroxine (SYNTHROID) 50 mcg Tablet Take 50 mcg by mouth daily. b complex vitamins Capsule Take 1 capsule by mouth daily. VITAMIN B COMPLEX-100 ORAL Take 100 Units by mouth daily. 03/31/2018 09/09/2023 albuterol (PROVENTIL HFA;VENTOLIN HFA;PROAIR) 90 mcg/actuation HFA Aerosol Inhaler Inhale 2 puffs into the lungs as needed for Wheezing. Use with spacer 01/28/2024 clonazePAM (KlonoPIN) 0.5 mg Tablet 0.5 mg as needed. 03/03/2014 meclizine (ANTIVERT) 25 mg Tablet, Chewable Four times a day 09/27/2015 03/02/2021 traMADol (ULTRAM) 50 mg Tablet Twice a day 08/03/2015 01/25/2020 losartan-hydrochlorothi azide (HYZAAR) 100-25 mg TabletIndications:Non-s mall cell carcinoma of left lung, stage 1 Take 0.5 tablets by mouth daily. 10/01/2018 magnesium oxide (MAG-OX) 400 mg Tablet Take 500 mg by mouth daily. 01/26/2021 topiramate (TOPAMAX) 50 mg TabletIndications:Non-s mall cell carcinoma of left lung, stage 1 Take 50 mg by mouth 2 times daily. 10/01/2018 fluticasone-salmeterol (ADVAIR DISKUS) 250-50 mcg/dose Disk with Device Inhale 1 puff into the lungs every 12 hours. 01/26/2021 clonazePAM (KLONOPIN) 0.5 mg Tablet Take 0.5 mg by mouth 3 times daily as needed for Anxiety. 01/14/2019 sertraline (ZOLOFT) 100 mg Tablet Take 100 mg by mouth daily. 10/01/2018 dextroamphetamine-amphe tamine (ADDERALL) 10 mg Tablet Take by mouth 2 times daily. One tablet in the AM and half tablet in the afternoon 01/14/2019 aspirin 81 mg Tablet, Delayed Release (E.C.)Indications:Adeno carcinoma, lung, left,Non-small cell carcinoma of left lung, stage 1 Take 81 mg by mouth daily. Reported on 03/19/2017 01/25/2020 documented as of this encounter Plan of Treatment Upcoming Encounters Date Type Department Care Team (Late st Contact Info) Description 09/01/2024 4:30 PM EDT Office Visit Dermatology at [facility] [address] [place] [address] Ruma Echavarria MD [facility] DR ABDIRAHMAN [place] [address] documented as of this encounter Procedures Procedure Name Priority Date/Time Associated Diagnosis Comments FILM LIBRARY STORAGE ONLY CT CHEST Routine 06/09/2018 12:00 AM EDT documented in this encounter Results * Film Library- Storage Only CT Chest (06/09/2018 12:00 AM EDT) Narrative [facility] - 06/10/2018 8:34 AM EDT This exam is for storage only and is auto-finalizing. Elsie Cruz PURSE MAKER IMG FILM LIBRARY O RDERABLES [place], [place] documented in this encounter Visit Diagnoses Not on filedocumented in this encounter Care Teams Ob/Gyn Relationship Specialty Start Date End Date Aurelia Bobby MD [address] [place] [address] PCP - General 08/31/14 01/23/24 documented as of this encounter
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
--- OUTSIDE RECORDS SUMMARY | 2024-07-15 14:30 | XMS_ITS | Encounter Summary ---
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 [address] [place] [address] Suicidal ideation Discharge Disposition: Psych Hospital/Distinct Part of Hospital Social History Tobacco Use Types Packs/Day Years [...] Sign Reading Time Taken Comments Blood Pressure 176/82 01/01/2019 12:02 PM EST Pulse 59 01/01/2019 12:02 PM EST Temperature 36.8 ??C (98.2 ??F) 01/01/2019 12:[address] Respiratory Rate 16 01/01/2019 12:02 PM EST Oxygen Saturation 99% 01/01/2019 12:02 PM EST Inhaled Oxygen Concentration - - Weight 53.5 kg (118 lb) 01/01/2019 12:02 PM EST Height 162.6 cm (5' 4) 01/01/2019 12:02 PM EST Body Mass Index 20.25 01/01/2019 12:02 PM EST documented in this encounter Medications at Time [...] times daily as needed for Anxiety. 01/14/2019 dextroamphetamine-amph etamine (ADDERALL) 10 mg Tablet Take by mouth 2 times daily. One tablet in the AM and half tablet in the afternoon 01/14/2019 aspirin 81 mg Tablet, Delayed Release (E.C.)Indications:Rakan ocarcinoma, lung, left,Non-small cell carcinoma of left lung, stage 1 Take 81 mg by mouth daily. Reported on 03/19/2017 01/25/2020 documented as of this encounter ED Notes * Stanford Ang - 01/01/2019 6:08 PM EST Pt given a book to help pass the time. She is anxiously awaiting her admission. * Stanford Ang - 01/01/2019 5:08 PM EST Pt reporting agitation. States I Just want to go to my room. * Stanford Ang - 01/01/2019 2:52 PM EST Psychiatric team in with patient. * Susana Andres MD - 01/01/2019 1:31 PM EST Brief Attending Note I cared for the patient with the resident physician. Please see Dr. Singleton's note, associated withthe encounter, for more details. HPI: Isaura Arellano is a 68 y.o. who presents to the ED pression. She has had thoughts of suicide. She made a noose last night. She also try to get the keys to her 's gun safe. She states to me that she also thought about smothering her with a pillow in his sleep last night. She has had several months of very labile moods where she would have extreme depression anxiety and agoraphobia for for 5 days but with sleep and alcohol she would come out of it. She denies any history of withdrawal or seizures. No specific medical concerns. Between these episodes she says that she is normal though her gives some impression that she may have episodes where she has been up for 24 hours at a time. She is never been diagnosed with bipolar. She denies auditory visual hallucinations. She has never been admitted to the hospital for her depression. She has never hurt herself previously. Had depression 36 years ago but was never treated. ED Course: Most Recent Vitals: 01/01/19 1202 BP: 176/82 Pulse: 59 Resp: 16 Temp: 36.8 ??C (98.2 ??F) SpO2: 99% Extremely emotional and labile moods. She has organized thinking but is tearful. She has outbursts of anger. However she is directable. No respiratory distress. Moving all 4 extremity's normally and grossly neurologically intact. Well-hydrated. Assessment/plan: 68-year-old female with depression and suicidal ideation with plan and some of homicidal ideation. No prior diagnosis of bipolar, though I do have some concerns given her cyclical lability to her moods. Plan will be emergent psychiatric evaluation. I have instructed the patient and her thatshe cannot leave without Psychiatry approval. Susana Andres MD 01/01/19 [id number] * Susana Andres MD - 01/01/2019 1:31 PM EST ED Resident Note Isaura Arellano is an 68 y.o. female who presents to the ED with: Chief Complaint Patient presents with ??? Suicidal Thoughts I saw this patient on 01/02/2019. History is from patient at the bedside. HPI Isaura Arellano is a 68 y.o. female with history of depression, alcohol abuse, who presents to the Emergency Department with worsening depression and suicidal ideation. Patient states that since August she has been weaned off of her SSRI medications because she did not like the way that they were making her feel. Since then she has had episodes that she describes as increased energy, decreased rational thinking, followed by episodes of increased depression. These appear to occur in cycles. Most recently she has been having a cycle of depression for the last for5 days. She describes intense suicidal ideation, she states that she made a noose, and was trying to steal the keys to the gun safe in order to kill herself. When her would not give her the keys to the gun safe she debated smothering him with a pillow during the night because he was standing in the way of her goal of ending her life. She states that she has never tried to kill herself in the past. She is interested in hospital admission. She denies any other complaints, no recent illness, fever, chills, nausea, vomiting, diarrhea, changes in bladder or bowel habits. Review of Systems: Review of Systems Constitutional: Negative for activity change, appetite change, chills, diaphoresis, fever and unexpected weight change. HENT: Negative for rhinorrhea, sore throat and voice change. Respiratory: Negative for apnea, cough and shortness of breath. Cardiovascular: Negative for chest pain. Gastrointestinal: Negative for abdominal pain, constipation, diarrhea, nausea and vomiting. Genitourinary: Negative for dysuria. Musculoskeletal: Negative for back pain. Skin: Negative for rash. Neurological: Negative for dizziness, numbness and headaches. Psychiatric/Behavioral: Positive for decreased concentration and dysphoric mood. Negative for confusion and suicidal ideas. Physical Exam: Patient Vitals for the past 24 hrs: BP Temp Temp src Pulse Resp SpO2 Height Weight 01/01/19 1202 176/82 36.8 ??C (98.2 ??F) Oral 59 16 99 % 162.6 cm (5' 4) 53.5 kg (118 lb) GEN: Patient is tearful while being interviewed. HEENT: Oropharynx clear, pink, and moist. PULM: No resp distress. CV: Normal rate. ABD: Soft, nondistended, nttp. MSK: No gross deformities. NEURO: AAOx3. PERRL. No gross CN deficits. Light touch intact face & body. Moves extremities equally. PSYCH: Patient has dysphoric mood, she is very emotionally labile switching between anger and tearfulness. She is very easily distractible. She has relatively normal linear thought pattern. SKIN: No rashes. ED Course: - Patient seen under the supervision of the attending physician. - Medications, allergies, and past medical history reviewed. Recent Results (from the past 24 hour(s)) Basic Metabolic Panel (non-fasting) Result Value Ref Range Glucose Lvl 107 65 - 199 mg/dL BUN 16 8 - 18 mg/dL Creatinine 0.63 (L) 0.70 - 1.20 mg/dL Sodium 138 135 - 145 mmol/L Potassium 4.1 3.5 - 5.0 mmol/L Chloride 99 98 - 107 mmol/L CO2 26 22 - 31 mmol/L Anion Gap 13 5 - 15 mmol/L Calcium 9.8 8.5 - 10.5 mg/dL eGFR 93 >=60 mL/min/1.73 m?? eGFR 108 >=60 mL/min/1.73 m?? Ethanol Level Result Value Ref Range Ethanol Lvl <100 <=99 mg/L Salicylate Result Value Ref Range Salicylate Lvl <20 mg/L Acetaminophen level Result Value Ref Range Acetamin Lvl <5 (L) 10 - 30 mg/L Hemogram Result Value Ref Range WBC 7.3 4.0 - 9.5 x10(3)/mcL RBC 4.89 4.00 - 5.21 x10(6)/mcL Hemoglobin 15.7 (H) 11.7 - 15.5 gm/dL Hematocrit 46.0 (H) 35.7 - 45.8 % MCV 94.1 82.6 - 94.4 fL MCH 32.1 (H) 27.1 - 32.0 pg MCHC 34.1 31.7 - 35.0 gm/dL Platelets 243 145 - 357 x10(3)/mcL RDWSD 45.6 37.0 - 46.0 fL RDWCV 13.2 11.5 - 14.1 % MPV 9.3 7.6 - 12.9 fL nRBC % Auto 0.0 % nRBC Abs Auto 0.000 0.000 - 0.000 x10(3)/mcL Differential, Automated Result Value Ref Range Neutrophils % 50.8 % Neutr Abs (ANC) 3.73 1.70 - 6.10 x10(3)/mcL Lymphocytes % 37.0 % Lymphocytes Abs 2.7 0.9 - 3.2 x10(3)/mcL Monocytes % 8.6 % Monocyte Abs 0.6 0.3 - 0.9 x10(3)/mcL Eosinophils % 2.6 % Eosinophils Abs 0.2 0.0 - 0.4 x10(3)/mcL Basophils % 0.7 % Basophils Abs 0.0 0.0 - 0.1 x10(3)/mcL Immature Gran % 0.30 % Pavithra Gran Abs 0.02 0.00 - 0.04 x10(3)/mcL Blue Tube HOLD Result Value Ref Range Blue Hold Sample in lab. Hepatic Function Panel Result Value Ref Range Total Protein 7.4 6.1 - 8.0 gm/dL Albumin 4.8 3.2 - 5.2 gm/dL AST 16 0 - 30 unit/L ALT 11 0 - 30 unit/L Alk Phos 81 40 - 104 unit/L Total Bilirubin 0.6 0.2 - 1.3 mg/dL Bili, Direct 0.2 0.0 - 0.3 mg/dL TSH Result Value Ref Range TSH 1.83 0.27 - 4.20 mlU/ML Rapid Drug Screen, Urine (ELIZABETH Request) Result Value Ref Range ELIZABETH Conf Requested No ELIZABETH Requested See Comment Rapid Drug Screen w/o Confirmation, Urine Result Value Ref Range U Barbiturates Screen None Detected None Detected U Benzodiazepines Screen Presumptive Pos (A) None Detected U Cocaine Screen None Detected None Detected U Methadone Metabolites Screen None Detected None Detected U Opiate Screen None Detected None Detected U Cannabinoid Screen Presumptive Pos (A) None Detected U Oxycodone Screen Presumptive Pos (A) None Detected U Buprenorphine Screen None Detected None Detected U Fentanyl Screen None Detected None Detected U Tricyclics Screen None Detected None Detected U Ethanol Screen None Detected None Detected U Amphetamines Screen None Detected None Detected U Adulterants Screen None Detected None Detected Assessment and Plan: 68 y.o. female with worsening depression and suicidal This 68-year-old female with a history of depression who has recently stopped taking her SSRIs is reporting cyclic episodes of increased energy with scattered thoughts and decreased energy and extreme depression. Currently she is experience in a bout of extreme depression with intense suicidality. She describes wanting to end her life by making a noose last night, trying to steal keys to the gun safe, and even describing a plan to smother her in his sleep because he was standing in the way of her ending her life. Her cyclic symptoms are concerning for possible bipolar disorder, perhaps 1 of the reasons she was not doing well on SSRIs that she instead would be better treated with a mood stabilizer. Given her extreme suicidality, plan and intent, she is not safe to go home. Psychiatry was consulted and agree with our assessment that she is not safe, and will be admitting her for further evaluation and workup. Her organic workup has been unremarkable, with the exception of positive cannabinoid and oxycodone on her urine toxicology test. Brian Singleton MD Resident 01/02/19 0032 ED ATTENDING ATTESTATION NOTE The patient was seen in conjunction with Dr. Singleton, the resident physician. I have independently performed the guerrero portions of the history and physical exam. I have reviewed the nursing notes, vital signs, and all diagnostic studies personally including labs, imaging studies and EKGs. I have discussed the details of the case with the resident and agree with the assessment and plan as described in the resident note above unless noted otherwise below. Susana Andres MD 01/02/19 1118 * Tejas Keenan RN - 01/01/2019 12:46 PM EST Pt to family waiting room. She is here with depression and thoughts of harming herself. Pt is awake, alert and oriented x 3. Skin color is pink warm and dry. She is rakesh for safety. She is sitting with her . documented in this encounter Miscellaneous Notes * Consult Note - Ashanti Chung, HERPETOLOGY TEACHER - 01/01/2019 3:34 PM EST EMERGENCY DEPARTMENT PSYCHIATRIC EVALUATION The patient was seen at 2:20pm. Time Spent: 45 minutes Referral Source: Dr. Singleton Additional Attendee(s) (identify by relationship to pt.): Gagan Arellano- patients Information source: Patient, patient's -Dr. Areli Farah and electronic medical record review. Chief Complaint: 68 y.o. Female presents to [facility] Emergency Department with worsening mood symptoms and suicidal ideation. History of Present Illness: (1,1,4) Patient reports a long history of depression. [...] children and dogs do not love her. Last night she also had thoughts of killing her by suffocating himwith a pillow. This is not the first time she has had the thought/ threatened to do it. She has been on multiple antidepressant medications over the last 30+ years. She has been in and out of therapy for many years but stopped in August of last year when she was completely weaned off of her psychiatric medications. She chose to stop the medications because she did not like how they made her feel emotionless. Psychiatric Review of Systems: Sustained Depressed Mood: Yes Sustained Elevated Mood: No Sustained Irritable Mood: Yes Flashbacks: No Nightmares: No Panic Attacks: Yes Chronic Worry: No Psychotic Symptoms: Yes, paranoia Obsessions/Compulsions: No Violence: No Self Harm: No Suicide Risk Factors on Day of ED Presentation: Enduring Factors: history of substance abuse, limited coping skills, poor emotional regulation and history of trauma, impulsivity, limited social supports, 3-4 alcoholic drinks per day for @15 years Dynamic Factors: depressive symptoms, access to firearms, rehearsal of a suicide plan/Preparatory behavior and sense of hopelessness Protective Factors: Supportive Access to Firearms: Yes, agrees to remove the gun from the home. Other Psychiatric History: Prior diagnoses: Depression Past hospitalization and location: Denies Suicide attempt details: Denies Past psychiatric medications: all antidepressants made her feel emotionless or gain weight. Substance Use History/Treatment: Tobacco-denies Alcohol-3-4 drinks per day (wine, beer, hard liquor) Denies all other substance use Outpatient Medications: No current facility-administered medications on file prior to encounter. Current Outpatient Medications on File Prior [...] carcinoma of left lung, stage 1 C34.92 Past Medical/Surgical History: Past Medical History: Diagnosis Date ??? Non-small cell carcinoma of left lung, stage 1 08/09/2014 Moderately differentiated adenocarcinoma, 1.8 cm, no LVI, positive visceral pleural invasion, no involved nodes (0/8). Past Surgical History: Procedure Laterality Date ??? PRO UP GI ENDOSCOPY, REMV TUMOR, SNARE 10/01/2018 EGD, W REMOVAL TUMOR/POLYPS/LESIONS BY SNARE TECHNIQUE performed by Viola Prieto MD at [facility] ENDOSCOPY ??? PRO UP GI ENDOSCOPY, REMV TUMOR, SNARE N/A 10/29/2018 EGD, W REMOVAL TUMOR/POLYPS/LESIONS BY SNARE TECHNIQUE performed by Viola Prieto MD at [facility] ENDOSCOPY ??? PRO UPPER GI ENDOSCOPY, BIOPSY N/A 10/01/2018 EGD WITH BIOPSY (WRVU 2.49) performed by Viola Prieto MD at [facility] ENDOSCOPY ??? PRO UPPER GI ENDOSCOPY, BIOPSY N/A 10/29/2018 EGD WITH BIOPSY (WRVU 2.49) performed by Viola Prieto MD at [facility] ENDOSCOPY Family Medical/Psychiatric History: Not obtained Social History: Resides with , dogs and cat. Two adult children. Vitals (24hr Range): Patient Vitals for the past 24 hrs: Temp Pulse Resp BP SpO2 01/01/19 1202 36.8 ??C (98.2 ??F) 59 16 176/82 99 % Musculoskeletal System: normal gait and balance Mental Status Exam: ?? Appearance: age appropriate and casually dressed ?? Behavior: cooperative with the interview, restless and good eye contact ?? Speech: normal pitch, normal volume, normal rate and normal rhythm ?? Language: fluent in indonesian, without paraphasic errors and without word finding difficulty ?? Mood: Depressed ?? Affect: labile ?? Thought Process: linear and logical ?? Associations: intact ?? Thought Content: Positive for SI, PI, denies HI at this time but was present last night, ?? Perception: denied auditory hallucinations denied visual hallucinations not observed responding to internal stimuli ?? Orientation: grossly intact by interview ?? Attention/Concentration: able to sustain focus ?? Cognition: grossly intact by interview ?? Memory: recent and remote memory grossly intact ?? Fund of Knowledge: appropriate for age and level of functioning ?? Insight: fair ?? Judgment: poor Wish to be : Have you wished you were or wished you could go to sleep and not wake up?: Yes (01/01/19 1500) Suicidal Thoughts: Have you had any actual thoughts of killing yourself?: Yes (01/01/19 1500) Suicidal Thoughts with Method (without Specific Plan or Intent to Act): Have you been thinking about how you might do this?: Yes (01/01/191499) Suicidal Intent (without Specific Plan): Have you had these thoughts and had some intention of acting on them?: Yes (01/01/191499) Suicidal Intent with Specific Plan: Have you started to work out or worked out the details of how to kill yourself? Do you intend to carry out this plan?: Yes (01/01/191499) Suicide Behavior Question: Have you ever done anything, started to do anything, or prepared to do anything to end your life?: No (01/01/19 1207) Labs: Psychiatry Labs (Last 24 hours): Preg: No results found for: HCGQUAL, HCGQUANT [...] INR Thyroid: No results found for: TSH, G2SJZUE, TT4 Lipids and HgbA1C: No results found for: CHLPL, HDL, CHOLHDL, LDLCHOL, LDLDIRECT, TRIG No results found for: HA1C Vit Lvls: No results found for: [id number], SFOLATE UA: No results found for: GLUCOSEU, KETONESUA, PROTEINUADIP, BLOODUADIP, LEUKOESTERUA, NITRATEUA, WBCUA (May not represent most recent UA results. See eD-H labs for more details.) Tox: No results found for: ETHANOL, ACTMNPHEN, SALICYLATE, LEAD No results found for: UDAUSCREEN Rx Lvls: No results found for: LITHIUM, CARBAMAZEPIN, VALPROATE, LAMOTRIGINE, CLOZAPINE Assessment: (including Suicide Risk Assessment) Isaura Arellano is a 68 y.o. Female with a history of depression who presents to [facility] with increased mood symptoms that occur 2-4 days per month. She stopped psychiatric medication in August of last year and stopped therapy at the same time. The mood symptoms have significantly worsened since then. They are extreme in nature and including SI, HI, PI and anger/agitation. She consumes 3-4 alcoholic beverages daily for the last 15 years. Itis unclear if the mood symptoms are substance induced or are now present due to no longer being in mental health treatment. She states I can't live like this anymore and is seeking inpatient level of care. Inpatient level of care is warranted for safety, stabilization, medication evaluation/optimization, illness and coping skills education. Current Suicide Assessment: risk for suicide is currently significantly elevated given her stated SI, researched how to make a noose and made one last night and had it around her neck, attempted to locate a hidden gun last night, sense of hopelessness, extreme mood lability, lack of mental health treatment at this time. Diagnosis: unspecified mood disorder. Plan: Inpatient psychiatric admission is recommended as it is warranted for safety and stabilization. Sheis willing to be admitted and will be admitted to inpatient psychiatry at this facility today. Signed By: LINDA Agarwal 01/01/2019 * ED Triage - Belgica Chatterjee RN - 01/01/2019 12:04 PM EST Pt arrives ambulatory with steady gait. A&Ox4 speaking in full sentences. Pt reports stopping her psych meds a little over two months ago. Reports increasing thoughts of wanting to hurt herself, SO reports irrational thoughts and not remembering them, pt also endorses thoughts of wanting to hurting others yesterday but not today. Denies illicit drug use today. Does occasionally use pot. Denies alcohol use today. Respirations even and non labored. NAD at this time. documented in this encounter Plan of Treatment Upcoming Encounters Date Type Department Care Team (Late st Contact Info) Description 09/01/2024 4:30 PM EDT Office Visit Dermatology at [address] [place] [address] [address] [facility] [address] [address] documented as of this encounter Procedures Procedure Name Priority Date/Time Associated Diagnosis Comments RAPID DRUG SCREEN, URINE STAT 01/01/2019 4:14 PM EST RAPID DRUG SCREEN W/O CONFIRMATION, URINE STAT 01/01/2019 4:14 PM EST HEMOGRAM STAT 01/01/2019 3:20 PM EST DIFFERENTIAL, AUTOMATED STAT 01/01/2019 3:20 PM EST BLUE TUBE HOLD STAT 01/01/2019 3:20 PM EST CBC (WITH DIFF) STAT 01/01/2019 3:20 PM EST TSH STAT 01/01/2019 3:20 PM EST ETHANOL LEVEL STAT 01/01/2019 3:20 PM EST ACETAMINOPHEN LEVEL STAT 01/01/2019 3 :20 PM EST SALICYLATE STAT 01/01/2019 3:20 PM EST HEPATIC FUNCTION PANEL STAT 9 3:20 PM EST BASIC METABOLIC PANEL STAT 01/01/2019 3:20 PM EST POCT URINE STAT 01/01/2019 documented in this encounter Results * (ABNORMAL) Rapid Drug Screen w/o Confirmation, Urine (01/01/2019 4:14 PM EST) Barbiturates Screen, Urine None Detected None Detected [facility] Comment: The barbiturate screen detects barbiturates at concentrations >200 ng/mL. Note: Not all barbiturates cross-react equally with antibody used in this screen. A ? Presumptive Positive? result indicates that the screening result was positive but has not yet been confirmed by a highly-specific method. As with any screen, occasional false positive results from cross-reacting substances may occur. Not for Medico-Legal Purposes. Benzodiazepines Screen, Urine Presumptive Pos(A) None Detected [facility] Comment: The benzodiazepines screen detects benzodiazepines at concentrations >100 ng/mL. Not all benzodiazepines cross-react equally with antibody used in this screen. Due to the low dosage of clonazepam, false negatives may be obtained due to low concentration of clonazepam metabolites. A ? Presumptive Positive? result indicates that the screening result was positive but has not yet been confirmed by a highly-specific method. As with any screen, occasional false positive results from cross-reacting substances may occur. Not for Medico-Legal Purposes. Cocaine Screen, Urine None Detected None Detected [facility] Comment: The cocaine metabolites screen detects benzoylecgonine (Cocaine Metabolite) at concentrations >150 ng/mL. A ? Presumptive Positive? result indicates that the screening result was positive but has not yet been confirmed by a highly-specific method. As with any screen, occasional false positive results from cross-reacting substances may occur. Not for Medico-Legal Purposes. Methadone Metabolites Screen, Urine None Detected None Detected [facility] Comment: The methadone metabolite screen detects EDDP (major methadone metabolite) at concentrations >100 ng/mL. A ? Presumptive Positive? result indicates that the screening result was positive but has not yet been confirmed by a highly-specific method. As with any screen, occasional false positive results from cross-reacting substances may occur. Not for Medico-Legal Purposes. Opiate Screen, Urine None Detected None Detected [facility] Comment: The opiates screen detects opiates at concentrations >300 ng/mL. Please note that oxycodone, oxymorphone, fentanyl, tramadol, and other synthetic opioids are not detected by the opiate screen. A ? Presumptive Positive? result indicates that the screening result was positive but has not yet been confirmed by a highly-specific method. As with any screen, occasional false positive results from cross-reacting substances may occur. Not for Medico-Legal Purposes. Cannabinoid Screen, Urine Presumptive Pos(A) None Detected [facility] Comment: The marijuana metabolites screen detects the THC metabolite (43-qak-8-carboxy-delta 9-THC) at concentrations >20 ng/mL. A ? Presumptive Positive? result indicates that the screening result was positive but has not yet been confirmed by a highly-specific method. As with any screen, occasional false positive results from cross-reacting substances may occur. Not for Medico-Legal Purposes. Oxycodone Screen, Urine Presumptive Pos(A) None Detected [facility] Comment: The oxycodone screen detects oxycodone and oxymorphone at concentrations >100 ng/mL. A ? Presumptive Positive? result indicates that the screening result was positive but has not yet been confirmed by a highly-specific method. As with any screen, occasional false positive results from cross-reacting substances may occur. Not for Medico-Legal Purposes. Buprenorphine Screen, Urine None Detected None Detected [facility] Comment: The buprenorphine screen detects buprenorphine at concentrations >5 ng/mL. A ? Presumptive Positive? result indicates that the screening result was positive but has not yet been confirmed by a highly-specific method. As with any screen, occasional false positive results from cross-reacting substances may occur. Not for Medico-Legal Purposes. Fentanyl Screen, Urine None Detected None Detected [facility] Comment: The fentanyl screen detects fentanyl at concentrations >2 ng/mL. A ? Presumptive Positive? result indicates that the screening result was positive but has not yet been confirmed by a highly-specific method. As with any screen, occasional false positive results from cross-reacting substances may occur. Not for Medico-Legal Purposes. Tricyclics Screen, Urine None Detected None Detected [facility] Comment: The tricyclics screen detects tricyclic antidepressants at concentrations >150 ng/mL. Not all tricyclics cross-react equally with the antibody used in this screen. A ? Presumptive Positive? result indicates that the screening result was positive but has not yet been confirmed by a highly-specific method. As with any screen, occasional false positive results from cross-reacting substances may occur. Not for Medico-Legal Purposes. Ethanol Screen, Urine None Detected None Detected [facility] Comment:This urine ethanol a ssay detects ethanol at concentrations >/= 100 mg/L. Amphetamines Screen, Urine None Detected None Detected [facility] Comment: The amphetamine screen detects d-amphetamine and d-methamphetamine at concentrations >300 ng/mL. A ? Presumptive Positive? result indicates that the screening result was positive but has not yet been confirmed by a highly-specific method. As with any screen, occasional false positive results from cross-reacting substances may occur. Not for Medico-Legal Purposes. Adulterants Screen, Urine None Detected None Detected [facility] Comment: No adulteration or dilution of this urine sample was detected. All urine samples submitted for urine drugs of abuse analysis are tested for creatinine concentration, pH, and for the presence of oxidants, nitrites, and chromate. Urine specimen (specimen) 01/01/2019 4:14 PM EST 01/01/2019 4:32 PM EST Narrative Resulting Agency Comment Spec In Lab Brian Singleton MD CHEMISTRY ORDER LACEY Performing Organization Address City/[facility]/ZIP Co de Phone Number [facility] [place] [address] * Rapid Drug Screen, Urine (ELIZABETH Request) (01/01/2019 4:14 PM EST) ELIZABETH Conf Requested No [facility] ELIZABETH Requested See Comment [facility] Comment:Refer to Rapid Drug Screen w/o Confirmation, Urine for results. Urine specimen (specimen) 01/01/2019 4:14 PM EST 01/01/2019 4:32 PM EST Narrative Resulting Agency Comment Spec In Lab Susana Andres MD URINE ORDERABLES Performing Organization Address [facility] Co de Phone Number [facility] [place] [address] * TSH (01/01/2019 3:20 PM EST) Thyroid Stimulating Hormone 1.83 0.27 - 4.20 mlU/ML [facility] Blood specimen (specimen) Venous Draw / Unknown 01/01/2019 3:20 PM EST 01/01/2019 3:39 PM EST Narrative Resulting Agency Comment Spec In Lab Keena Harman MD CHEMISTRY ORDERABLE S [facility] [place] [address] * Hepatic Function Panel (01/01/2019 3:20 PM EST) [facility] Signature Protein, Total 7.4 6.1 - 8.0 gm/dL [facility] Albumin 4.8 3.2 - 5.2 gm/dL [facility] Aspartate Aminotransferase 16 0 - 30 unit/L [facility] Alanine Aminotransferase 11 0 - 30 unit/L [facility] Alkaline Phosphatase 81 40 - 104 unit/L [facility] Bilirubin, Total 0.6 0.2 - 1.3 mg/dL [facility] Bilirubin, Direct 0.2 0.0 - 0.3 mg/dL [facility] Blood specimen (specimen) Venous Draw / Unknown 01/01/2019 3:20 PM EST 01/01/2019 3:39 PM EST Narrative Resulting Agency Comment Spec In Lab Keena Harman MD CHEMISTRY ORDERABLE S Performing Organization Address City/[facility]/ZIP Co de Phone Number [facility] [place] [address] * Blue Tube HOLD (01/01/2019 3:20 PM EST) [facility] Blue Hold Sample in lab. [facility] Blood specimen (specimen) Venous Draw / Unknown 01/01/2019 3:20 PM EST 01/01/2019 3:39 PM EST Brian Singleton MD HEMATOLOGY [facility] [facility] [place] [address] * Differential, Automated (01/01/2019 3:20 PM EST) Pathologist [facility] Neutrophil % 50.8 % [facility] Neutrophil Absolute 3.73 1.70 - 6.10 x10(3)/[facility] Lymph % 37.0 % [facility] Lymphocytes Abs 2.7 0.9 - 3.2 x10(3)/[facility]AT[facility] Monocyte % 8.6 % [facility] Monocyte Abs 0.6 0.3 - 0.9 x10(3)/[facility]AT[facility] Eos % 2.6 % [facility] Eosinophils Abs 0.2 0.0 - 0.4 x10(3)/[facility] Basophil % 0.7 % [facility] Baso Absolute 0.0 0.0 - 0.1 x10(3)/[facility] Immature Gran % 0.30 % [facility] Comment: Immature granulocytes(IG's)percentage and absolute count will include metamyelocytes, myelocytes, and promyelocytes. Blood smears from CBCs yielding IG's will be scanned manually for concordance. If this scan disagrees with the automated IG or if promyelocytes are noted, a manual differential will be performed. Immature Gran Absolute 0.02 0.00 - 0.04 x10(3)/[facility] Blood specimen (specimen) 01/01/2019 3:20 PM EST 01/01/2019 3:39 PM EST Narrative Resulting Agency Comment Spec In Lab Brian Singleton MD HEMATOLOGY [facility] [place] [address] * (ABNORMAL) Hemogram (01/01/2019 3:20 PM EST) Pathologist [facility] White Blood Cell 7.3 4.0 - 9.5 x10(3)/[facility] LABORATORY Red Blood Cell 4.89 4.00 - 5.21 x10(6)/mc L [facility] Hemoglobin 15.7(H) 11.7 - 15.5 gm/dL [facility] Hematocrit 46.0(H) 35.7 - 45.8 % [facility] Mean Cell Volume 94.1 82.6 - 94.[address] [facility] Mean Cell Hemoglobin 32.1(H) 27.1 - 32.[address] [facility] Mean Cell Hemoglobin Concentration 34.1 31.7 - 35.0 gm/dL [facility] Platelet 243 145 - 357 x10(3)/mc L [facility] RDW Standard Deviation 45.6 37.0 - 46.0 [facility] LABORATORY RDW coefficient of variation 13.2 11.5 - 14.1 % [facility] Mean Platelet Volume 9.3 7.6 - 12.9 [facility] LABORATORY NRBC% auto 0.0 % [facility] NRBC Absolute 0.000 0.000 - 0.000 x10(3)/mc L [facility] Blood specimen (specimen) 01/01/2019 3:20 PM EST 01/01/2019 3:39 PM EST Narrative Resulting Agency Comment Spec In Lab Brian Singleton MD HEMATOLOGY [facility] Performing Organization Address City/State/[facility] Co de Phone Number [facility] [place] [address] * (ABNORMAL) Acetaminophen level (01/01/2019 3:20 PM EST) Acetamin Lvl <5(L) 10 - 30 mg/L [facility] Comment: Levels >150 mg/L at 4 hours post ingestion or >75 mg/L at 8 hours post ingestion are often an indication for N-Acetylcysteine. Blood specimen (specimen) 01/01/2019 3:20 PM EST 01/01/2019 3:39 PM EST Narrative Resulting Agency Comment Spec In Lab Susana Andres MD CHEMISTRY ORDERABLE S Performing Organization Address [facility] Co de Phone Number [facility] [place] [address] * Salicylate (01/01/2019 3:20 PM EST) Salicylate <20 mg/L [facility] Comment: Therapeutic Range: ??< 200 mg/L Arthritic Therapy: ??150-300 mg/L Toxic: ?> 350 mg/L ??Concentrations > 500 mg/L may be an indication for alkalinization of urine. Concentrations > 800 mg/L are often an indication for hemodialysis. Blood specimen (specimen) 01/01/2019 3:20 PM EST 01/01/2019 3:39 PM EST Narrative Resulting Agency Comment Spec In Lab Susana Andres MD CHEMISTRY ORDERABLE S Performing Organization Address [facility] Co de Phone Number [facility] [place] [address] * Ethanol Level (01/01/2019 3:20 PM EST) Ethanol <100 <=99 mg/L [facility] Comment: Greater than 800 mg/L (0.08%) should be considered intoxicated. 3400 to 4500 mg/L (0.34 - 0.45%) is considered severe intoxication. Greater than 5500 mg/L (0.55%) is usually fatal. Blood specimen (specimen) 01/01/2019 3:20 PM EST 01/01/2019 3:39 PM EST Narrative Resulting Agency Comment Spec In Lab Susana Andres MD CHEMISTRY ORDERABLE S Performing Organization Address [facility] Co de Phone Number [facility] [place] [address] * (ABNORMAL) Basic Metabolic Panel (non-fasting) (01/01/2019 3:20 PM EST) Glucose 107 65 - 199 mg/dL [facility] Comment:Diabetes: >=200 mg/d L plus symptoms Blood Urea Nitrogen 16 8 - 18 mg/dL [facility] Creatinine 0.63(L) 0.70 - 1.20 mg/dL [facility] Sodium 138 135 - 145 mmol/L [facility] Potassium 4.1 3.5 - 5.0 mmol/L [facility] Comment: Please note: ??Patients with WBC >100,000 may have falsely elevated Potassium levels. ??For accurate Potassium quantification in these patients send serum separator tube (gold top) for subsequent determinations. ??Contact the Clinical Chemistry Laboratory if there are any questions. Chloride 99 98 - 107 mmol/L [facility] Carbon Dioxide 26 22 - 31 mmol/L [facility] Anion Gap 13 5 - 15 mmol/L [facility] Calcium 9.8 8.5 - 10.5 mg/dL [facility] Est Glomerular Filtration Rate 93 >=60 mL/min/1. 73 m?? [facility] Comment: The eGFR was calculated using the CKD-EPI equation. As with all creatinine based estimates of kidney function, eGFR values calculated with the CKD-EPI equation are not accurate in patients with acute kidney failure, extremes of body mass or the acutely ill. [email or web address] CITYnkf eGFR 108 >=60 mL/min/1. 73 m?? [facility] Comment: The eGFR was calculated using the CKD-EPI equation. As with all creatinine based estimates of kidney function, eGFR values calculated with the CKD-EPI equation are not accurate in patients with acute kidney failure, extremes of body mass or the acutely ill. [email or web address] [place] Blood specimen (specimen) 01/01/2019 3:20 PM EST 01/01/2019 3:39 PM EST Narrative Resulting Agency Comment Spec In Lab Susana Andres MD CHEMISTRY ORDERABLE S [facility] [place] [address] * POCT urine (01/01/2019) POC Urine HCG Negative Negative - Negative POC Control Internal Controls Acceptable 01/01/2019 Susana Andres MD POINT OF CARE TEST ORDERABLES documented in this encounter Visit Diagnoses Diagnosis Suicidal ideation documented in this encounter Administered Medications Inactive Administered Medications - up to 3 most recent administrations Medication Order MAR Action Action Date Dose Rate Site clonazePAM (KlonoPIN) tablet 0.5 mg 0.5 mg, Oral, ONCE, 1 dose, On Halle 01/01/19 at 1742, STAT Given 01/01/2019 5:44 PM EST 0.5 mg documented in this encounter Active and Recently Administered Medications Times are shown in EST. Scheduled Medication Order 12/30/2018 12/31/2018 01/01/2019 clonazePAM (KlonoPIN) tablet 0.5 mg (COMPLETED) 0.5 mg, Oral, ONCE, 1 dose, On Halle 01/01/19 at 1742, STAT 1744 (Given - Provid er: Stanford Ang) documented in this encounter Care Teams Rubber Printing Machine Operator Relationship Specialty Start Date End Date Aurelia Bobby MD [address] [place] [address] PCP - General 08/31/14 01/23/24 documented as of this encounter
--- OUTSIDE RECORDS SUMMARY | 2024-07-15 14:30 | XMS_ITS | Encounter Summary ---
Author Organization [facility] [place] [address] Care Team Providers Care Jboss Developer Name Role Phone Aurelia Bobby MD Primary Care Provider [phone] Encounter Details Date Type Department Care Team (Late st Contact Info) Description 12/19/2017 Telephone [place]ematology [place] [address] Elsie Cruz, [employer] RESOURCES ASSISTANT [facility] [address] HEMATOLOGY-[place] [address] Social History Tobacco Use Types Packs/Day Years [...] Telephone Encounter - Elsie Cruz APRN - 12/19/2017 11:51 AM EST Called pt to review CT scan from earlier this week. Subcarinal LN is stable compared to previous studies at 14 x 8mm. No new adenopathy or suspicious nodules. Isaura denies any new symptoms, specifically no respiratory complaints. Energy level is fine. No problems with eating/drinking. Given she isdoing well, will cancel her appt with us next week and have her RTC in 6 mo with labs and chest CT done locally the week prior. The pt will call in the meantime with any new or concerning symptoms. documented in this encounter Plan of Treatment Upcoming Encounters Date Type Department Care Team (Late st Contact Info) Description 09/01/2024 4:30 PM EDT Office Visit Dermatology at [facility] [address] [place] [address] Ruma Echavarria MD [facility] [address] ABDIRAHMAN [place] [address] documented as of this encounter Visit Diagnoses Diagnosis Non-small cell carcinoma of left lung, stage 1 documented in this encounter Care Teams Jboss Developer Relationship Specialty Start Date End Date Aurelia Bobby MD [address] [place] [address] PCP - General 08/31/14 01/23/24 documented as of this encounter
--- OUTSIDE RECORDS SUMMARY | 2024-07-15 14:30 | XMS_ITS | Encounter Summary ---
Author Organization [facility] Address [facility] [place] [address] Care Team Providers Care Woodwinds Teacher Name Role Phone Aurleia Bobby MD Primary Care Provider [phone] Encounter Details Date Type Department Care Team (Late st Contact Info) Description 05/21/2018 - 05/21/2018 11:59 PM EDT Hospital Encounter [place] [phone] Tres Graham MD [facility] [place] [address] Pain Discharge Disposition: Home Social History Tobacco Use [...] 4:30 PM EDT Office Visit Dermatology at [facility] [address] [place] [address] Ruma Echavarria MD [facility] [address] [place] [address] documented as of this encounter Procedures Procedure Name Priority Date/Time Associated Diagnosis Comments FILM LIBRARY STORAGE ONLY ULTRASOUND STUDY Routine 05/21/2018 12:00 AM EDT Pain documented in this encounter Results * Film Library- Storage Only Ultrasound Study (05/21/2018 12:00 AM EDT) Narrative [facility] - 05/29/2018 5:45 PM EDT This exam is for storage only and is auto-finalizing. Tres Graham MD IMG FILM LIBRARY ORDERABLES Performing Organization Address City/State/[facility] Co de Phone Number [place], [place] documented in this encounter Visit Diagnoses Diagnosis Pain Generalized pain documented in this encounter Care Teams Woodwinds Teacher Relationship Specialty Start Date End Date Aurelia Bobby MD [address] [place] [address] PCP - General 08/31/14 01/23/24 documented as of this encounter
--- OUTSIDE RECORDS SUMMARY | 2024-07-15 14:30 | XMS_ITS | Encounter Summary ---
Author Organization [facility]ly [facility] [place] [address] Care Team Providers Care Manager Competitive Intelligence Name Role Phone Aurelia Bobby MD Primary Care Provider [phone] Encounter Details Date Type Department Care Team (Late st Contact Info) Description 10/01/2018 10:30 AM EST - 10/01/2018 11:15 AM EST Surgery [place] [address] Viola Prieto MD [facility] [place] [address] EGD WITH BIOPSY (WRVU 2.39) Social History Tobacco Use Types Packs/Day Years Used Date Smoking Tobacco: Former Cigarettes Q uit: 04/01/2004 Smokeless Tobacco: Never Alcohol Use Standard Drinks/Week Comments Yes 14 (1 standard drink = 0.6 oz pu re alcohol) 2 beers per day Sex and Gender Information Value Date Recorded Sex Assigned at Female 06/08/2021 7:37 PM EDT Gender Identity Not on file Sexual Orientation Not on file documented as of this encounter Last Filed Vital Signs Vital Sign Reading Time Taken Comments Blood Pressure 105/42 10/01/2018 9:23 AM EST Pulse 65 10/01/2018 9:23 AM EST Temperature 36.6 ??C (97.9 ??F) 10/01/2018 9:23 AM ES T Respiratory Rate - - Oxygen Saturation 97% 10/01/2018 9:23 AM EST Inhaled Oxygen Concentration - - Weight - - Height - - Body Mass Index - - documented in this encounter Discharge Instructions * Discharge Instructions* Nataliia Granger RN - 10/01/2018 12:21 PM EST UPPER GI ENDOSCOPY WHAT TO EXPECT AFTER THE PROCEDURE After the test you may feel a little more gassy or bloated than usual, this is normal. ACTIVITY Because of the sedation that you received Your judgement and reaction time are affected ?? Go home and rest quietly for the remainder of the day. You may resume your normal activities tomorrow. ?? Change from one position to the next slowly. You may lose your balance unexpectedly Be careful on stairs, as you may be unsteady on your feet. FOR THE NEXT 24 HRS ?? DO NOT DRIVE OR OPERATE ANY MACHINERY ?? DO NOT DRINK ALCOHOLIC BEVERAGES ?? DO NOT SIGN LEGAL DOCUMENTS ?? If you are a smoker: DO NOT SMOKE WHILE YOU ARE ALONE Diet ?? Start by eating small portions of foods that ordinarily will not upset your stomach. Be gentle with what you choose to start with. ?? Drink plenty of fluids ( unless otherwise told not to) Medications You may have a mild sore throat. Ice chips, popsicles, over the counter throat lozenges or spray may help numb your throat. This procedure should not cause a fever. IV SITE-- slight redness or tenderness is normal, you can use warm compresses if you get concerned.If the tenderness +/or redness increases or foul drainage and a red streak occurs, please contact your PCP immediately. WHEN SHOULD YOU CALL FOR HELP? Call 911 anytime you think that you need emergency care. For example, call if: You passed out (lost consciousness). You cough up blood. You vomit blood or what looks like coffee grounds. You pass maroon or very bloody stools. Call your healthcare provider or seek immediate medical attention if: You have trouble swallowing. You have belly pain. Your stools are black or tarlike or have streaks of blood. You are sick to your stomach or cannot keep fluids down. Watch closely for changes in your health, and be sure to contact your doctor IF Your throat still hurts after a day or two You do not get better as expected. Saturday-Saturday Same Day Endo [phone] 7a-8p Otherwise contact [phone] and ask to speak to the agricultural production engineer recreation manager Follow-up care is a guerrero part of your treatment and safety. Be sure to make and go to all appointments, and call your doctor if you are having problems. Instructions have been reviewed and patient expresses understanding documented in this encounter Medications at Time [...] mg Tablet Twice a day 08/03/2015 01/25/2020 cholecalciferol, Vitamin D3, 25 mcg (1,000 unit) Capsule Take by mouth. 01/25 magnesium oxide (MAG-OX) 400 mg Tablet Take 500 mg by mouth daily. 01/26/2021 fluticasone-salmeterol (ADVAIR DISKUS) 250-50 mcg/dose Disk with Device Inhale 1 puff into the lungs every 12 hours. 01/26/2021 clonazePAM (KLONOPIN) 0.5 mg Tablet Take 0.5 mg by mouth 3 times daily as needed for Anxiety. 01/14/2019 dextroamphetamine-amphe tamine (ADDERALL) 10 mg Tablet Take by mouth 2 times daily. One tablet in the AM and half tablet in the afternoon 01/14/2019 aspirin 81 mg Tablet, Delayed Release (E.C.)Indications:Adeno carcinoma, lung, left,Non-small cell carcinoma of left lung, stage 1 Take 81 mg by mouth daily. Reported on 03/19/2017 01/25/2020 documented as of this encounter H&P Notes * Viola Prieto MD - 10/01/2018 11:06 AM EST Patient Name: Isaura Arellano Patient Age: 68 y.o. Birthdate: 1950 Admit date: 10/01/2018 Attending Physician: Viola Prieto MD Gastroenterology and Hepatology Pre-Procedure History and Physical Exam Procedure: EGD: Indication: duodenal mass lesion ? lipoma Patient Active Problem List Diagnosis Code ??? Non-small cell carcinoma of left lung, stage 1 C34.92 EXAM: HEENT: Airway examined, oropharynx clear Mallampati Score: II (soft palate, uvula, fauces visible) LUNGS: Clear to auscultation HEART: Regular [...] PM EDT Office Visit Dermatology at [facility] [address] [place] [address] Ruma Echavarria MD [facility] [address] [place] [address] documented as of this encounter Procedures Procedure Name Priority Date/Time Associated Diagnosis Comments SPECIMEN TO PATHOLOGY Routine 10/01/2018 12:04 PM EST SPECIMEN TO PATHOLOGY Routine 10/01/2018 12:04 PM EST SPECIMEN TO PATHOLOGY Routine 10/01/2018 12:04 PM EST SURGICAL PATHOLOGY REPORT Routine 10/01/2018 11:45 AM EST EGD, W REMOVAL TUMOR/POLYPS/LESION S BY SNARE TECHNIQUE (WRVU 3.47) 10/01/2018 11:23 AM EST reflux EGD WITH BIOPSY (WRVU 2.39) 10/01/2018 11:23 AM EST reflux UPPER GI ENDOSCOPY Routine 10/01/2018 11 :10 AM EST documented in this encounter Results * Specimen to Pathology (10/01/2018 12:04 PM EST) AP Specimen 10/01/2018 12:0 4 PM EST 10/01/2018 12:04 PM EST Narrative [facility] - 10/01/2018 12:04 PM EST Specimen requisition ordered. ??Separate Pathology report to follow Viola Prieto MD PATHOLOGY/CYTOLOGY O RDERABLES [facility] [place] [address] * Specimen to Pathology (10/01/2018 12:04 PM EST) AP Specimen 10/01/2018 12:0 4 PM EST 10/01/2018 12:04 PM EST Narrative [facility] - 10/01/2018 12:04 PM EST Specimen requisition ordered. ??Separate Pathology report to follow Viola Prieto MD PATHOLOGY/CYTOLOGY O RDERABLES [facility] [place] [address] * Specimen to Pathology (10/01/2018 12:04 PM EST) AP Specimen 10/01/2018 12:0 4 PM EST 10/01/2018 12:04 PM EST Narrative [facility] - 10/01/2018 12:04 PM EST Specimen requisition ordered. ??Separate Pathology report to follow Viola Prieto MD PATHOLOGY/CYTOLOGY O SULLY [facility] [place] [address] * Surgical Pathology Report (10/01/2018 11:45 AM EST) Final Diagnosis [id number] ? Location: 4T; EA07; A The signing pathologist has (i) examined the relevant preparation(s) for the specimen(s) and (ii) rendered or confirmed the diagnosis(es). . 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 (see Note). - ??Antrum-type mucosa, negative for diagnostic abnormality. Note: ??Multiple deeper levels examined. B - Duodenum, ??biopsy: - Duodenal mucosa, negative for diagnostic abnormality ?? . C - Duodenum, lesion, ?? biopsy: - Duodenal mucosa, negative for diagnostic abnormality ?? . Electronically signed by: ??Farhan Ramesh MD Verified: ??10/07/2018 ?Pathologist Performed at: ??-[facility] Dept. of Pathology, [place], [place] CLINICAL INFORMATION Specimen Submitted: A - Gastric polyp B - Duodenal biopsies C - Duodenal submucosal lesion Clinical History and Diagnosis: Duodenal mass/lesion, surveillance SPECIMEN PROCESSING A - Labeled/Fixative : Gastric polyp, formalin. Quantity/Size: Multiple, 0.2-0.3 cm. Tissue Description: Soft, yellow tissues. Sections/Process ing: Submitted en toto ??in 2 cassettes labeled A1-A2. B - Labeled/Fixative : Duodenal biopsies, formalin. Quantity/Size: Four, 0.3-0.4 cm. Tissue Description: Soft, pink tissues. Sections/Process ing: Submitted en toto ??in 1 cassette labeled B1. C - Labeled/Fixative : Duodenal submucosal lesion, question lipoma, formalin. Quantity/Size: Three, 0.2-0.3 cm. Tissue Description: Soft, pink tissues. Sections/Process ing: Submitted en toto ??in 1 cassette labeled C1. ??ejr 10/07/2018 2:09 PM EST [facility] GI Biopsy 10/01/2018 11:4 5 AM EST 10/01/2018 11:45 AM EST GI Biopsy 10/01/2018 11:4 5 AM EST 10/01/2018 11:45 AM EST GI Biopsy 10/01/2018 11:4 5 AM EST 10/01/2018 11:45 AM EST Viola Preito MD PATHOLOGY/CYTOLOGY O RDERABLES [facility] [place] [address] * UPPER GI ENDOSCOPY (10/01/2018 11:10 AM EST) UPPER GI ENDOSCOPY [facility] Endoscopy Procedure Date: 10/01/2018 11:10 AM ? Patient Name: Isaura Arellano ? Date of : 1950 ? Age: 68 ? Order #: [id number] ? Instrument Name: [id number] ? Procedure: ? Upper GI endoscopy Indications: ? Abnormal CT of the GI tract, Duodenal ? mass on recent EGD ? lipoma Providers: ? Viola Prieto MD, Barby ? Candis Medina, Urban And Regional Planner Referring : ?Aurelia Bobby MD, Nubia Loya Medicines: ? Fentanyl 200 micrograms IV, Midazolam ? 4 mg IV Complications: ? No immediate complications. Procedure: ? The procedure, indications, benefits, ? risks and alternatives were explained ? to the patient. Specifically ? discussed were potential ? complications including, but not ? limited to, bleeding, perforation, ? infection, missing a cancer, and ? adverse medication reactions. The ? Endoscope was introduced through the ? mouth, and advanced to the second ? part of duodenum. The upper GI ? endoscopy was accomplished without ? difficulty. The patient tolerated the ? procedure well. ? Findings: ? The Z-line was regular and was found 40 cm from the ? incisors. ? The examined esophagus was normal. ? The exam of the stomach was otherwise normal. The ? fundus was examined closely with no abnormalities. ? Two 3 mm sessile polyps with no stigmata of recent ? bleeding were found in the gastric body. These polyps ? were removed with a cold biopsy forceps. Resection ? and retrieval were complete. ? There was a small submucosal lesion, approximately 12 ? mm in diameter, just after the duodenal sweep at the ? transition of the first to second portion of the ? duodenum. Soft with positive pillow sign. Bite on ? bite biopsies were taken with a cold forceps that ? revealed yellow-appearing fatty tissue. ? Normal mucosa was found in the entire duodenum. ? Biopsies were taken with a cold forceps for histology. ? Moderate Sedation: ? Moderate (conscious) sedation was administered by the ? endoscopy nurse and supervised by the endoscopist. ? The following parameters were monitored: oxygen ? saturation, heart rate, blood pressure, and response ? to care. Impression: ?- Z-line regular, 40 cm from the ? incisors. ? - Normal esophagus. ? - Two gastric polyps. Resected and ? retrieved. ? - Normal stomach. The fundus was ? examined closely with no ? abnormalities. ? - Small duodenal lipoma. Biopsied. No ? further follow-up needed. ? - Normal mucosa was found in the ? entire examined duodenum. Biopsied. Recommendation: ?- Await pathology results. ? - Follow-up with referring provider. ? Attending Participation: ? I personally performed the entire procedure. ? Dr. Viola Prieto ___ Viola Prieto MD 10/01/2018 12:30:10 PM Number of Addenda: 0 Note Initiated On: 10/01/2018 11:10 AM PROVATION 10/01/2018 11:1 0 AM EST Aurelia Bobby MD GENERAL SURGICAL ORD ERABLES PROVATION documented in this encounter Visit Diagnoses Not on filedocumented in this encounter Administered Medications Inactive Administered Medications - up to 3 most recent administrations Medication Order MAR Action Action Date Dose Rate Site fentaNYL 50 mcg/mL multi-dose injection ONCE PRN, Starting on Sat10/01/18 at 1126, Until Sat10/01/18 at 1530, Intra-Operative (Intra-Procedure), Routine Given 10/01/2018 11:39 AM EST 50 mcg Given 10/01/2018 11:35 AM EST 50 mcg Given 10/01/2018 11:29 AM EST 50 mcg midazolam (PF) (VERSED) multi-dose injection ONCE PRN, Starting on Sat10/01/18 at 1126, Until Sat10/01/18 at 1530, Intra-Operative (Intra-Procedure), Routine Given 10/01/2018 11:39 AM EST 1 mg Given 10/01/2018 11:35 AM EST 1 mg Given 10/01/2018 11:29 AM EST 1 mg documented in this encounter Active and Recently Administered Medications Times are shown in EST. PRN Medication Order 09/29/2018 09/30/2018 10/01/2018 fentaNYL 50 mcg/mL multi-dose injection (CANCELED) ONCE PRN, Starting on Sat10/01/18 at 1126, Until Sat10/01/18 at 1530, Intra-Operative (Intra-Procedure), Routine 1126 (Given - Provid er: Barby Medina RN)1129 (Given - Provider: Barby Medina RN)1135 (Given - Provider: Barby Medina RN)1139 (Given - Provider: Barby Medina RN) midazolam (PF) (VERSED) multi-dose injection (CANCELED) ONCE PRN, Starting on Sat10/01/18 at 1126, Until Sat10/01/18 at 1530, Intra-Operative (Intra-Procedure), Routine 1126 (Given - Provid er: Barby Medina RN)1129 (Given - Provider: Barby Medina RN)1135 (Given - Provider: Barby Medina RN)1139 (Given - Provider: Barby Medina RN) documented in this encounter Care Teams Manager Competitive Intelligence Relationship Specialty Start Date End Date Aurelia Bobby MD [address] [place] [address] PCP - General 08/31/14 01/23/24 documented as of this encounter
--- OUTSIDE RECORDS SUMMARY | 2024-07-15 14:30 | XMS_ITS | Encounter Summary ---
Author Organization [facility] [place] [place] [address] Care Team Providers Care Vice President For Philanthropy Name Role Phone Aurelia Bobby MD Primary Care Provider [phone] Encounter Details Date Type Department Care Team (Late st Contact Info) Description 10/31/2018 Ancillary Procedure [place] [address] Tres Graham MD [facility] [place] [address] Social History Tobacco Use Types Packs/Day Years [...] 4:30 PM EDT Office Visit Dermatology at [facility] [address] [place] [address] Ruma Echavarria MD [facility] DR [address] [address] documented as of this encounter Procedures Procedure Name Priority Date/Time Associated Diagnosis Comments FILM LIBRARY STORAGE ONLY MR HEAD Routine 10/31/2018 12:00 AM EST documented in this encounter Results * Film Library- Storage Only MR Head (10/31/2018 12:00 AM EST) Narrative [facility] - 12/11/2018 10:33 AM EST This exam is for storage only and is auto-finalizing. Tres Graham MD IMElena FILM LIBRARY ORDERABLES Performing Organization Address City/State/[facility] Co de Phone Number [place], [place] documented in this encounter Visit Diagnoses Not on filedocumented in this encounter Care Teams Vice President For Philanthropy Relationship Specialty Start Date End Date Aurelia Bobby MD [address] [place] [address] PCP - General 08/31/14 01/23/24 documented as of this encounter
--- OUTSIDE RECORDS SUMMARY | 2024-07-15 14:30 | XMS_ITS | Encounter Summary ---
[place] [address] Care Team Providers Care Program Paraprofessional Name Role Phone Aurelia Bobby MD Primary Care Provider [phone] Encounter Details Date Type Department Care Team (Late st Contact Info) Description 06/05/2018 Telephone Hematology [place] [id number] Keena Bhakta, RN Social History Tobacco Use [...] Telephone Encounter - Keena Bhakta, RN - 06/05/2018 2:18 PM EDT Message received from medical assistant secretary: [facility] radiology called they are doing a CT scan on pt Saturday and they we instructed to draw a stat creatine from within a week. The patient had a normal creatine lab on 05/27 and they are wondering if they can use this please send fax stating okay to use 05/27 labs, fax to [phone]. If labs should be redrawn please call [phone]. Discussed with Elsie Cruz APRN. OK to proceed with creatinine from 05/27. Fax sent to [facility] Radiology @ to notify ok to use creatinine from 05/27 with confirmation received. documented in this encounter Plan of Treatment Upcoming Encounters Date Type Department Care Team (Late st Contact Info) Description 09/01/2024 4:30 PM EDT Office Visit Dermatology at [facility] [address] [place] [address] Ruma Echavarria MD [facility] [address] [place] [address] documented as of this encounter Visit Diagnoses Not on filedocumented in this encounter Care Teams Program Paraprofessional Relationship Specialty Start Date End Date Aurelia Bobby MD [address] [place] [address] PCP - General 08/31/14 01/23/24 documented as of this encounter
--- OUTSIDE RECORDS SUMMARY | 2024-07-15 14:30 | XMS_ITS | Encounter Summary ---
Author Organization [facility] [place] [address] Care Team Providers Care Hoop Maker Name Role Phone Aurelia Bobby MD Primary Care Provider [phone] Encounter Details Date Type Department Care Team (Latest Contact Info) Description 12/16/2017 - 12/16/2017 11:59 PM EST Hospital Encounter [place] [address] Elsie Cruz APRN [facility] [address] Discharge Disposition: Home Social History Tobacco Use [...] EDT Office Visit Dermatology at [facility] [address] [place] [address] Ruma Echavarria MD [facility] DR [address]IR[address] [address] documented as of this encounter Procedures Procedure Name Priority Date/Time Associated Diagnosis Comments FILM LIBRARY STORAGE ONLY CT CHEST Routine 12/16/2017 12:00 AM EST documented in this encounter Results * Film Library- Storage Only CT Chest (12/16/2017 12:00 AM EST) Narrative [facility] - 12/17/2017 4:30 PM EST This exam is for storage only and is auto-finalizing. Elsie Cruz BANKING SERVICES OFFICER IMG FILM LIBRARY O RDERABLES Performing Organization Address City/State/[facility] Co de Phone Number [place], [place] documented in this encounter Visit Diagnoses Not on filedocumented in this encounter Care Teams Hoop Maker Relationship Specialty Start Date End Date Aurelia Bobby MD [address] [place] [address] PCP - General 08/31/14 01/23/24 documented as of this encounter
--- OUTSIDE RECORDS SUMMARY | 2024-07-15 14:30 | XMS_ITS | Encounter Summary ---
Author Organization [facility] [place] [address] Care Team Providers Care Education Assistant Name Role Phone Aurelia Bobby MD Primary Care Provider Encounter Details Date Type Department Care Team (Latest Contact Info) Description 10/29/2018 2:48 PM EST - 10/29/2018 6:10 PM EST Hospital Encounter [place] [address] Viola Prieto MD [facility] [place] [address] Discharge Disposition: Home Social History Tobacco Use [...] Sign Reading Time Taken Comments Blood Pressure 119/84 10/29/2018 5:45 PM EST Pulse 59 10/29/2018 5:26 PM EST Temperature 36.7 ??C (98.1 ??F) 10/29/2018 3:36 PM ES T Respiratory Rate 16 10/29/2018 5:45 PM EST Oxygen Saturation 97% 10/29/2018 5:45 PM EST Inhaled Oxygen Concentration - - Weight 55.3 kg (122 lb) 10/29/2018 3:36 PM EST Height 162.6 cm (5' 4) 10/29/2018 3:36 PM EST Body Mass Index 20.94 10/29/2018 3:36 PM EST documented in this encounter Discharge Instructions * Discharge Instructions* Taylor Tay RN - 10/29/2018 5:31 PM EST UPPER GI ENDOSCOPY with biopsies WHAT TO EXPECT AFTER THE PROCEDURE After [...] better as expected. Saturday-Saturday Same Day Endo [phone] 7a-8p Otherwise contact [phone] and ask to speak to the fish hatchery laborer returned telephone equipment appraiser Follow-up care is a guerrero part of [...] mg Tablet, Chewable Four times a day 09/27/201502/2021 traMADol (ULTRAM) 50 mg Tablet Twice a [...] H&P Notes * Viola Prieto MD - 10/29/2018 3:58 PM EST Patient Name: Isaura Arellano Patient Age: 68 y.o. Birthdate: 1950 Admit date: 10/29/2018 Attending Physician: Viola Prieto MD Gastroenterology and Hepatology Pre-Procedure History and Physical Exam Procedure: EGD: Indication: adenoma with HGD follow-up Patient Active Problem List Diagnosis Code ??? [...] 4:30 PM EDT Office Visit Dermatology at [facility] [address] [place] [address] Ruma Echavarria MD [facility] DR ABDIRAH[place] [address] documented as of this encounter Procedures Procedure Name Priority Date/Time Associated Diagnosis Comments SPECIMEN TO PATHOLOGY Routine 10/29/2018 5:16 PM EST SPECIMEN TO PATHOLOGY Routine 10/29/2018 5:16 PM EST SPECIMEN TO PATHOLOGY Routine 10/29/2018 5:16 PM EST SPECIMEN TO PATHOLOGY Routine 10/29/2018 5:16 PM EST SPECIMEN TO PATHOLOGY Routine 10/29/2018 5:16 PM EST SURGICAL PATHOLOGY REPORT Routine 10/29/2018 4:33 PM EST EGD WITH BIOPSY (WRVU 2.39) 10/29/2018 4:07 PM EST Gastric adenoma EGD, W REMOVAL TUMOR/POLYPS/LESION S BY SNARE TECHNIQUE (WRVU 3.47) 10/29/2018 4:07 PM EST Gastric adenoma documented in this encounter Results * Specimen to Pathology (10/29/2018 5:16 PM EST) AP Specimen 10/29/2018 5:16 PM EST 10/29/2018 5:[address] [facility] - 10/29/2018 5:16 PM EST Specimen requisition ordered. ??Separate Pathology report to follow Viola Prieto MD PATHOLOGY/CYTOLOGY O RDERABLES [facility] [place] [address] * Specimen to Pathology (10/29/2018 5:16 PM EST) AP Specimen 10/29/2018 5:16 PM EST 10/29/2018 5:[address] [facility] - 10/29/2018 5:16 PM EST Specimen requisition ordered. ??Separate Pathology report to follow Viola Prieto MD PATHOLOGY/[place] [address] * Specimen to Pathology (10/29/2018 5:16 PM EST) AP Specimen 10/29/2018 5:16 PM EST 10/29/2018 5:[address] [facility] - 10/29/2018 5:16 PM EST Specimen requisition ordered. ??Separate Pathology report to follow Viola Prieto MD PATHOLOGY/CYTOLOGY O [place]ULLY Performing Organization Address [facility] [place] [address] * Specimen to Pathology (10/29/2018 5:16 PM EST) AP Specimen 10/29/2018 5:16 PM EST 10/29/2018 5:[address] [facility] - 10/29/2018 5:16 PM EST Specimen requisition ordered. ??Separate Pathology report to follow Viola Prieto MD PATHOLOGY/CYTOLOGY O [place] Performing Organization Address [facility]/[place]IP [place] [address] * Specimen to Pathology (10/29/2018 5:16 PM EST) AP Specimen 10/29/2018 5:16 PM EST 10/29/2018 5:[address] [facility] - 10/29/2018 5:16 PM EST Specimen requisition ordered. ??Separate Pathology report to follow Viola Prieto MD PATHOLOGY/CYTOLOGY O [place] Performing Organization Address [facility]/[place] [address] * Surgical Pathology Report (10/29/2018 4:33 PM EST) Final Diagnosis [id number] ? Location: 4T; EA07; A The signing pathologist has (i) examined the relevant preparation(s) for the specimen(s) and (ii) rendered or confirmed the diagnosis(es). . ?Surgical Pathology DIAGNOSIS A - Antrum, polypectomy: - Body/fundic-typ e mucosa, negative for diagnostic abnormality. B - Gastric body, #2, polypectomy: - Body/fundic-typ e mucosa, negative for diagnostic abnormality. C - Gstric body polypoid area #1, polypectomy: - Body/fundic-typ e mucosa, negative for diagnostic abnormality. D - Gastric body polypoid area #2, polypectomy: - Body/fundic-typ e mucosa, negative for diagnostic abnormality. E - Gastric body, biopsy: - ??Body/fundic-t ype mucosa with reactive gastropathy in one of the fragments. ?? Multiple deeper levels examined. Electronically signed by: ??Farhan Ramesh MD Verified: ??11/03/2018 ?Pathologist Performed at: ??-[facility] Dept. of Pathology, [place], [place] CLINICAL INFORMATION Specimen Submitted: A - Antrum, gastric polyp #1 B - Gastric body polyp #2 C - Gstric body polypoid area #1 D - Gastric body polypoid area #2 E - Gastric body biopsies Clinical History and Diagnosis: History of adenoma with high-grade dysplasia SPECIMEN PROCESSING A - Labeled/Fixativ e: Antrum, gastric polyp #1, formalin. Quantity/Size: Two, averaging 0.6 cm. Tissue Description: Soft, collins-pink polypoid tissue. Sections/Proces sing: Submitted en toto ??in 1 cassette labeled A1. B - Labeled/Fixativ e: Gastric body polyp #2, formalin. Quantity/Size: Three, ranging from 0.4-0.8 cm. Tissue Description: Soft, collins-pink polypoid tissue. Sections/Proces sing: Submitted en toto ??in 1 cassette labeled B1. C - Labeled/Fixativ e: Gastric body polypoid area #1, formalin. Quantity/Size: Single, to 0.5 cm. Tissue Description: Soft, collins-white tissue. Sections/Proces sing: Submitted en toto ??in 1 cassette labeled C1. D - Labeled/Fixativ e: Gastric body polypoid area #2, formalin. Quantity/Size: Single, 0.5 cm. Tissue Description: Soft, collins-pink polypoid tissue. . SPECIMEN PROCESSING Sections/Proces sing: Submitted en toto ??in 1 cassette labeled D1. E - Labeled/Fixativ e: Gastric body biopsies, formalin. Quantity/Size: Multiple, ranging from 0.1-0.5 cm. Tissue Description: Soft, collins-pink tissues. Sections/Proces sing: Submitted en toto ??in 2 cassettes labeled E1-E2. ??apb 11/03/2018 3:[address] [facility] GI Biopsy 10/29/2018 4:33 PM EST 10/29/2018 4:33 PM EST GI Biopsy 10/29/2018 4:33 PM EST 10/29/2018 4:33 PM EST GI Biopsy 10/29/2018 4:33 PM EST 10/29/2018 4:33 PM EST GI Biopsy 10/29/2018 4:33 PM EST 10/29/2018 4:33 PM EST GI Biopsy 10/29/2018 4:33 PM EST 10/29/2018 4:33 PM EST Viola Prieto MD PATHOLOGY/CYTOLOGY O RDERABLES [facility] [place] [address] documented in this encounter Visit Diagnoses Not on filedocumented in this encounter Administered Medications Inactive Administered Medications - up to 3 most recent administrations Medication Order MAR Action Action Date Dose Rate Site lactated Ringers infusion 200 mL/hr, Intravenous, CONTINUOUS, Starting on Sat10/29/18 at 1600, Until Sat10/29/18 at 1809, Endoscopy (Day of Procedure) New Bag 10/29/2018 3:43 PM EST 200 mL/hr 200 mL/hr documented in this encounter Active and Recently Administered Medications Times are shown in EST. Continuous Medication Order 10/27/2018 10/28/2018 10/29/2018 lactated Ringers infusion (CANCELED) 200 mL/hr, Intravenous, CONTINUOUS, Starting on Sat10/29/18 at 1600, Until Sat10/29/18 at 1809, Endoscopy (Day of Procedure) 1543 (New Bag - Prov ider: Jon Saha RN) PRN Medication Order 10/27/2018 10/28/2018 10/29/2018 fentaNYL 50 mcg/mL multi-dose injection (CANCELED) ONCE PRN, Starting on Sat10/29/18 at 1610, Until Sat10/29/18 at 2010, Intra-Operative (Intra-Procedure), Routine 1610 (Given - Provid er: Barby Medina RN)1613 (Given - Provider: Barby Medina RN)1616 (Given - Provider: Barby Medina RN)1620 (Given - Provider: Barby Medina RN)1625 (Given - Provider: Barby Medina RN) midazolam (PF) (VERSED) multi-dose injection (CANCELED) ONCE PRN, Starting on Sat10/29/18 at 1611, Until Sat10/29/18 at 2009, Intra-Operative (Intra-Procedure), Routine 1610 (Given - Provid er: Barby Medina RN)1613 (Given - Provider: Barby Medina RN)1616 (Given - Provider: Barby Medina RN)1620 (Given - Provider: Barby Medina RN)1625 (Given - Provider: Barby Medina RN)1634 (Given - Provider: Barby Mdeina RN)1700 (Given - Provider: Barby Medina RN) documented in this encounter Care Teams Education Assistant Relationship Specialty Start Date End Date Aurelia Bobby MD [address] [place] [address] [address] [place] [address] PCP - General 08/31/14 01/23/24 documented as of this encounter
--- OUTSIDE RECORDS SUMMARY | 2024-07-15 14:30 | XMS_ITS | Encounter Summary ---
Author Organization [facility] [place] [address] Care Team Providers Care Flooring Machine Operator Name Role Phone Aurelia Bobby MD Primary Care Provider [phone] Encounter Details Date Type Department Care Team (Late st Contact Info) Description 05/29/2018 External Results Hematology [place] [address] Keena Bhakta, RN Social History Tobacco Use [...] [facility] [address] [place] [address] Ruma Echavarria MD [facility] DR ABDIRAH[place] [address] documented as of this encounter Procedures Procedure Name Priority Date/Time Associated Diagnosis Comments CBC (WITH DIFF) Routine 05/27/2018 12:22 PM EDT COMPREHENSIVE METABOLIC PANEL Routine 05/27/2018 12:22 PM EDT documented in this encounter Results * (ABNORMAL) Comprehensive metabolic panel (non-fasting) (05/27/2018 12:22 PM EDT) Glucose 118(EXTER NAL/ABN) 70 - 100 Blood Urea Nitrogen 11(Ict Trainer al Lab) 7 - 18 Creatinine 0.80(Exte rnal Lab) 0.55 - 1.02 Sodium 139(Exter nal Lab) 136 - 145 Potassium 3.6(Exter nal Lab) 3.5 - 5.1 Chloride 107(Exter nal Lab) 98 - 107 Carbon Dioxide 24(Ict Trainer al Lab) 21 - 32 Calcium 9.1(Exter nal Lab) 8.5 - 10.1 Protein, Total 7.2(Exter nal Lab) 6.4 - 8.2 Albumin 3.8(Exter nal Lab) 3.4 - 5.0 Bilirubin, Total 0.5 0.2 - 1.0 Alkaline Phosphatase 93(Ict Trainer al Lab) 46 - 116 Aspartate Aminotransferase 12(SKEIN DYER AL/ABN) 15 - 37 Alanine Aminotransferase 18(Ict Trainer al Lab) 12 - 78 Lactate Dehydrogenase 111(Exter nal Lab) 81 - 234 Thyroid Stimulating Hormone 0.91(Exte rnal Lab) 0.358 - 3.74 Blood specimen (specimen) 05/27/2018 12:22 PM EDT Historical Provider CHEMISTRY ORDERAB LES * (ABNORMAL) CBC (with Diff) (05/27/2018 12:22 PM EDT) White Blood Cell 6.35(Exter nal Lab) 4.4 - 10.8 Hemoglobin 14.4(Exter nal Lab) 12.0 - 15.5 Hematocrit 42.8(EXTER NAL/ABN) 36.0 - 46.0 Platelet 254(Ict Trainer al Lab) 130 - 400 ANC 3.21(Exter nal Lab) 1.2 - 6.7 Blood specimen (specimen) 05/27/2018 12:22 PM EDT Historical Provider HEMATOLOGY ORDERA BLES documented in this encounter Visit Diagnoses Not on filedocumented in this encounter Care Teams Flooring Machine Operator Relationship Specialty Start Date End Date Aurelia Bobby MD [address] [place] [address] PCP - General 08/31/14 01/23/24 documented as of this encounter
--- OUTSIDE RECORDS SUMMARY | 2024-07-15 14:30 | XMS_ITS | Encounter Summary ---
Author Organization [facility] [place] [address] Care Team Providers Care Truck Safety Inspector Name Role Phone Aurelia Bobby MD Primary Care Provider [phone] Encounter Details Date Type Department Care Team (Late st Contact Info) Description 12/18/2017 External Results Hematology [place] [address] Keena Bhakta, RN Social History Tobacco Use [...] 4:30 PM EDT Office Visit Dermatology at [facility] [address] [place] [address] Ruma Echavarria MD [facility] [address] [place] [address] documented as of this encounter Procedures Procedure Name Priority Date/Time Associated Diagnosis Comments LACTATE DEHYDROGENASE Routine 12/13/2017 10:10 AM EST documented in this encounter Results * Lactate Dehydrogenase (12/13/2017 10:10 AM EST) Lactate Dehydrogenase 114 81 - 234 Blood specimen (specimen) 12/13/2017 10:10 AM EST Historical Provider CHEMISTRY ORDERAB LES documented in this encounter Visit Diagnoses Not on filedocumented in this encounter Care Teams Truck Safety Inspector Relationship Specialty Start Date End Date Aurelia Bobby MD [address] [place] [address] PCP - General 08/31/14 01/23/24 documented as of this encounter
--- OUTSIDE RECORDS SUMMARY | 2024-07-15 14:30 | XMS_ITS | Encounter Summary ---
Author [facility] [place] [address] Care Team Providers Care Credit Collector Name Role Phone Aurelia Bobby MD Primary Care Provider [phone] Encounter Details Date Type Department Care Team (Late st Contact Info) Description 09/02/2018 Telephone [place] [address] Sonja Encarnacion Social History Tobacco Use Types Packs/Day Years [...] encounter Miscellaneous Notes * Telephone Encounter - Sonja Encarnacion - 09/02/2018 1:04 PM EDT Spoke with patient and scheduled appt. documented in this encounter Plan of Treatment Upcoming Encounters Date Type Department Care Team (Late st Contact Info) Description 09/01/2024 4:30 PM EDT Office Visit Dermatology at [facility] [address] [place] [address] Ruma Echavarria MD [facility] DR ABDIRAHMAN [place] [address] documented as of this encounter Visit Diagnoses Not on filedocumented in this encounter Care Teams Credit Collector Relationship Specialty Start Date End Date Aurelia Bobby MD [address] [place] [address] PCP - General 08/31/14 01/23/24 documented as of this encounter
--- OUTSIDE RECORDS SUMMARY | 2024-07-15 14:30 | XMS_ITS | Encounter Summary ---
[place] [address] Care Team Providers Care Sports Equipment Racker Name Role Phone Aurelia Bobby MD Primary Care Provider [phone] Encounter Details Date Type Department Care Team (Late st Contact Info) Description 05/29/2018 Telephone Hematology [place] [address] Keena Bhakta, RN Social History Tobacco Use [...] Telephone Encounter - Keena Bhakta, RN - 05/29/2018 11:21 AM EDT Message received from woodwinds teacher: Patient called stated she had new onset of abdominal pain and saw her PCP for this. They did a CT (it is on its way to us now) and the PCP told her something showed up on it. The PCP is working on setting her up for a upper endo, she is wondering if it is related toher cancer. She can be reached at [phone]. Call placed to pt to discuss. Pt states PCP office is sending scan & lab results to our office.Pt concerned that what is going on is related to her lung cancer. Explained to pt that it is difficult to know without Dr. Graham seeing the scan results. Reassured pt that triage nurse would updateDian Graham & that results would be reviewed at her upcoming clinic visit 06/17. Encouraged to call back to clinic with any questions or concerns. documented in this encounter Plan of Treatment Upcoming Encounters Date Type Department Care Team (Late st Contact Info) Description 09/01/2024 4:30 PM EDT Office Visit Dermatology at [facility] [address] [place] [address] Ruma Echavarria MD [facility] [address] ABDIRAH[place] [address] documented as of this encounter Visit Diagnoses Not on filedocumented in this encounter Care Teams Sports Equipment Racker Relationship Specialty Start Date End Date Aurelia Bobby MD [address] [place] [address] PCP - General 08/31/14 01/23/24 documented as of this encounter
--- OUTSIDE RECORDS SUMMARY | 2024-07-15 14:30 | XMS_ITS | Encounter Summary ---
Author Organization [facility] [place] [address] Care Team Providers Care Spine Specialist Name Role Phone Aurelia Bobby MD Primary Care Provider [phone] Reason for Visit * Consultation (Routine) - Closed Specialty Diagnoses / Procedures Referred By Bk de leon Referred To Contact Gastroenterology Diagnoses Anorexia; abnormal weight loss Aurelia Bobby MD [address] [place] [address] [facility] [place] [facility] [address] [place] [address] Referral ID Status Reason Start Date Expiration Date V isits Requested Visits Authorized [id number] Closed Consult, Test & Treat Connection Center 08/25/2018 08/25/2019 1 1 Encounter Details Date Type Department Care Team (Late st Contact Info) Description 09/23/2018 10:00 AM EDT Office [place] [address] Nubia Loya [place] [facility] [place] [address] Nausea without vomiting; Early satiety; Weight loss Social History Tobacco Use Types Packs/Day Years [...] Sign Reading Time Taken Comments Blood Pressure 143/83 09/23/2018 9:59 AM EDT Pulse 87 09/23/2018 9:59 AM EDT Temperature - - Respiratory Rate - - Oxygen Saturation - - Inhaled Oxygen Concentration - - Weight 55.8 kg (123 lb) 09/23/2018 9:59 AM EDT Height 162.6 cm (5' 4) 09/23/2018 9:59 AM EDT Body Mass Index 21.11 09/23/2018 9:59 AM EDT documented in this encounter Patient Instructions * Patient Instructions* Nubia Loya - 09/23/2018 10:00 AM EDT Thank you for coming in today. Here is a summary of what we discussed: 1. Schedule upper endoscopy 2. I will be in touch about other follow up. 3. Follow up 3-4 weeks after testing documented in this encounter Progress Notes * Nubia Loya - 09/23/2018 10:00 AM EDT Gastroenterology & Hepatology New Patient Consultation Note PCP: Aurelia Bobby MD Requesting Provider: Aureila Bobby MD Reason for consultation: Isaura Arellano is a 68 y.o. female with medical history significant for hypothyroidism, non-small cell carcinoma left lung stage 1, FHX colon cancer (father, PGF, MGF). I am seeing her as a new patient today in consult for question of anorexia, abnormal weight loss. Subjective: HPI: Ms. Arellano states I actually feel fine. Her GI symptoms began around January 2018 (7 mo ago) whenshe started having early satiety. She lost weight - is unsure if this because she was eating less -she tried to eat frequent smaller meals. - Medication changes around spring 2017: She had been on sertraline, Abilify and Topamax for headaches, decided to stop around winter/spring. Stopped Abilify during winter 2017. Also tapered off the other meds. She is now off all of these meds that she had been taking for a long time; is doing wellwithout the medications, sees a counselor. In summer 2017 she developed epigastric, RUQ abdominal discomfort, worse post prandially. She had aCT with question of thickening in fundus and a follow up EGD on 08/12. A duodenal mass was found on EGD but not biopsied to the sub- mucosal level, and the surgeon who performed it told her in follow up that the bx is therefore inconclusive but that it is likely a lipoma. Isaura is concerned about this mass and lack of definitive dx. After EGD on 08/12 she tried Prilosec 40 mg daily (for 2 weeks BID, I think) which worsened her abdominal discomfort and pain. Vomited a few times mucous-y, no blood, horrible nausea. Stopped PPI ~Sep 02 (3 weeks ago). - She has only tried Prilosec and does not want to try another PPI. - Went to ED in late May - d/c after GI cocktail. Her main ongoing symptoms are early satiety and some nausea. Feels full and bloated, distension with meals, but no pain. Her major concern though is duodenal mass noted on her EGD. - Nausea in waves maybe once a week. Hard to figure out why because she also has vertigo and gets nauseous with that, hx migraines, followed by neurology once yearly. Saw ENT for vertigo. No vomitingrecently. - Always uncomfortable after she eats, full, pressure even with small meal or water. Denies GERD symptoms. No dysphagia or odynophagia. Passes a lot of gas, not new - eats high fiber diet. Bowels: mild constipation/incomplete emptying around end Jul when she had the EGD/colo. Other thanthat, BM every morning like clockwork. Solid, formed stool, occasionally loose. No blood, black tarry stools or pain with BM. Diet review: Carbonated and non-carbonated water throughout the day. B: toast and egg or oatmeal or yogurt L: tuna on flax crackers or cheeseburger or soup D: protein, starch, vegetable Drinks: water (some carbonated), coffee, milk. No soda, juice. Weight: 17 lbs loss over last year, thinks most of that is since Nov. Weight has been stable 118 lbover summer, 123 lb today. Appetite: not great, has always been a picky eater Exercise: active Medication trials: Diagnostic studies: 1. TVUS (rt pelvic swelling) [facility]: normal exam. 2. CT abd/pelvis 05/27/18 [facility] (nausea, wt loss): Question of fold thickening of fundus of stomach vscontraction. Upper GI series or endoscopy could be considered for further evaluation. Moderate quantity of stool. 3. Labs 05/27/18: CBC nl. CMP with glucose 118 (h), rest nl. TSH nl. CRP neg. UA 05/12/18 [facility]: nl. 4. CT chest 06/09/18 [facility]: Stable appearance of chest and stable appearance of left adrenal mass since exam of 12/16/17. No evidence of recurrent disease. 5. EGD 08/12/18 [facility] Dr. 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 Gastritis. Esophagitis. ? Candidiasis. No HH identified. Path: Duodenum mass - no specific pathologic features. Antrum - no specific pathologic features. GEJ - mild reflux esophagitis. Esophagus - no specific pathologic features. 6. Colonoscopy 08/12/18 [facility] Dr. Ye: 5 polyps transverse colon. 5 polyps rectum. Path: Transverse colon: colonic mucosa with prominent lymphoid aggregate and hyperplastic surface change. Deeper sections have been reviewed. Rectum - fragments of hyperplastic polyps. ROS: Constitutional: + unintended weight loss Denies fatigue, fever, night sweats Eyes: Denies red or painful eyes ENT: Denies dysphagia, odynophagia Resp: Denies cough, shortness of breath Cardio: Denies chest pain, palpitations : Denies dysuria, incontinence Integumentary: Denies new rashes, sores, lesions GI: see HPI Musculoskeletal: Denies new joint pain, stiffness, muscle aches Psych: stable now, difficult when tapering SSRI Neuro: + headaches/migraines with aura (infrequent), vertigo ALL/IMMUNO: + Seasonal allergies. + asthma vs COPD MEDICAL HISTORY: Patient Active Problem List Diagnosis Code ??? Non-small cell carcinoma of left lung, stage 1 C34.92 Hypothyroidism CURRENT MEDICATIONS: ??? cholecalciferol, Vitamin D3, (VITAMIN D) 1,000 unit Capsule ??? levothyroxine (SYNTHROID) 50 mcg Tablet ??? b complex vitamins Capsule ??? magnesium oxide (MAG-OX) 400 mg Tablet ??? albuterol (PROVENTIL HFA;VENTOLIN HFA;PROAIR) 90 mcg/actuation HFA Aerosol Inhaler ??? clonazePAM (KLONOPIN) 0.5 mg Tablet ??? losartan-hydrochlorothiazide (HYZAAR) 100-25 mg Tablet ??? topiramate (TOPAMAX) 50 mg Tablet ??? fluticasone-salmeterol (ADVAIR DISKUS) 250-50 mcg/dose Disk with Device ??? sertraline (ZOLOFT) 100 mg Tablet ??? dextroamphetamine-amphetamine (ADDERALL) 10 mg Tablet ??? aspirin 81 mg Tablet, Delayed Release (E.C.) Mg, vit B2 for migraine prevention Klonopin PRN for sleep Not taking Zoloft, Topamax Not taking Adderall or Hyzaar ALLERGIES: No Known Allergies SURGICAL HISTORY: No past surgical history on file. 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 There is no history of liver or pancreas disease. Objective: PHYSICAL EXAMINATION: Most Recent Vitals: 09/23/18 0959 BP: 143/83 Pulse: 87 Body mass index is 21.11 kg/m??. GEN: Alert, well-appearing, no acute distress. Appears stated age. Cooperates and answers questionsappropriately. SKIN: No rashes or abnormal lesions. NECK: No lymphadenopathy, thyromegaly. HEENT: Normal sclera, PERRL, oropharynx clear without ulceration or lesions. LUNGS: Clear to auscultation bilaterally. COR: Regular, normal S1 and S2 without murmurs ABD: Normal active bowel sounds. Soft and non-distended. No tenderness to deep palpation in all 4 quadrants. No organomegaly, masses, rebound, guarding, ascites. EXT: No upper extremity cyanosis, clubbing. +2 radial pulses. No peripheral edema. PSYCH: mood appropriate, good eye contact, normal interaction Impression/Recommendations: Isaura Arellano is a 68 y.o. year old female with hx of non-small cell lung cancer and FHX colon cancer (father, MGF, PGF) here for follow up of finding on upper endoscopy done 08/12/18 at [facility]. GI symptoms include early satiety, weight loss and mild nausea since ~January 2018. She has fullness, bloating but no abdominal pain. She states weight loss has plateaued and thinks it is related to medication changes around winter/spring 2017. She is most concerned about duodenal mass on EGD that was not adequately biopsied and would like this evaluated to r/o any concerning pathology. Testing otherwise has been unrevealing. Given her ongoing symptoms and concerns on past EGD, will repeat EGD to evaluate what was presumed to be a duodenal lipoma and rule out concerning mass. Discussed that her symptoms may be d/t GI dysmotility (she had a period of bowel changes in summer that resolved), and/or medication effect. We can consider utility of GES or upper GI series in the future. Sx do not sound obstructive. Recommended daily probiotic. Provided gastroparesis diet information (although she states she cannot eliminated raw fruits/vegetables) and advised to decrease carbonated beverages. I will review with attending regarding possible further eval. PLAN (printed for patient): 1. Schedule upper endoscopy 2. I will be in touch about other follow up. 3. Follow up 3-4 weeks after testing The patient was given my contact information and will call me with concerns or questions. ADDENDUM 09/24/18: Case was reviewed with Dr. Levi Owens. Reasonable to repeat EGD (including bx for Celiac). If symptoms persistent/weight loss continues, can discuss switching PPI (although today she states she is not interested in this), check lipase and consider other imaging or functional studies as indicated. Nubia Loya PA-C Section of Gastroenterology [place] [address] documented in this encounter Plan of Treatment Upcoming Encounters Date Type Department Care Team (Late st Contact Info) Description 09/01/2024 4:30 PM EDT Office Visit Dermatology at [facility] [address] [place] [address] Ruma Echavarria MD [facility] DR ABDIRAH[place] [address] Scheduled Orders Name Type Priority Associated Diagnoses Orde r Schedule UPPER GI ENDOSCOPY Procedures Routine Nausea without vomiting Early satiety Weight loss Ordered: 09/23/2018 documented as of this encounter Visit Diagnoses Diagnosis Nausea without vomiting Early satiety Weight loss Loss of weight documented in this encounter Care Teams Spine Specialist Relationship Specialty Start Date End Date Aurelia Bobby MD [address] [place] [address] PCP - General 08/31/14 01/23/24 documented as of this encounter
--- OUTSIDE RECORDS SUMMARY | 2024-07-15 14:30 | XMS_ITS | Encounter Summary ---
Author Organization [facility] [place] [address] Care Team Providers Care Leather Piece Inspector Name Role Phone Aurelia Bobby MD Primary Care Provider [phone] Encounter Details Date Type Department Care Team (Late st Contact Info) Description 10/29/2018 4:00 PM EST - 10/29/2018 4:45 PM EST Surgery [place] [address] Viola Prieto MD [facility] [place] [address] EGD, W REMOVAL TUMOR/POLYPS/LESIONS BY SNARE TECHNIQUE [...] Sign Reading Time Taken Comments Blood Pressure 131/75 10/29/2018 4:45 PM EST Pulse 67 10/29/2018 4:45 PM EST Temperature 36.7 ??C (98.1 ??F) 10/29/2018 3:36 PM ES T Respiratory Rate 15 10/29/2018 4:45 PM EST Oxygen Saturation 96% 10/29/2018 4:45 PM EST Inhaled Oxygen Concentration - - [...] better as expected. Saturday-Saturday Same Day Endo [phone] 7a-8p Otherwise contact [phone] and ask to speak to the postal supervisor communication equipment mechanic Follow-up care is a guerrero part of [...] Tablet, Chewable Four times a day 09/27/2015/02/2021 traMADol (ULTRAM) 50 mg Tablet Twice a [...] Office Visit Dermatology at [facility] [address] [place] [address] Ruma Echavarria MD [facility] [address] [place] [address] documented as of this encounter Procedures Procedure [...] PM EST 10/29/2018 5:16 PM EST Narrative [facility] - 10/29/2018 5:16 PM EST Specimen requisition ordered. ??Separate Pathology report to follow Viola Prieto MD PATHOLOGY/CYTOLOGY O SULLY [facility] [place] [address] * Specimen to Pathology (10/29/2018 5:16 PM EST) AP Specimen 10/29/2018 5:16 PM EST 10/29/2018 5:16 PM EST Narrative [facility] - 10/29/2018 5:16 PM EST Specimen requisition ordered. ??Separate Pathology report to follow Viola Prieto MD PATHOLOGY/CYTOLOG[place] [address] * Specimen to Pathology (10/29/2018 5:16 PM EST) AP Specimen 10/29/2018 5:16 PM EST 10/29/2018 5:16 PM EST Narrative [facility] - 10/29/2018 5:16 PM EST Specimen requisition ordered. ??Separate Pathology report to follow Viola Prieto MD PATHOLOGY/CYTOLOGY O SULLY Performing Organization Address [facility]/ZIP [place] [address] * Specimen to Pathology (10/29/2018 5:16 PM EST) AP Specimen 10/29/2018 5:16 PM EST 10/29/2018 5:16 PM EST Narrative [facility] - 10/29/2018 5:16 PM EST Specimen requisition ordered. ??Separate Pathology report to follow Viola Prieto MD PATHOLOGY/[place] [address] * Specimen to Pathology (10/29/2018 5:16 PM EST) AP Specimen 10/29/2018 5:16 PM EST 10/29/2018 5:16 PM EST Narrative [facility] - 10/29/2018 5:16 PM EST Specimen requisition ordered. ??Separate Pathology report to follow Viola Prieto MD PATHOLOGY/CYTOLOGY O SULLY [facility] [place] [address] * Surgical Pathology Report (10/29/2018 4:33 PM EST) Final Diagnosis [id number] ? Location: 4T; EA07; A The signing [...] Ramesh MD Verified: ??11/03/2018 ?Pathologist Performed at: ??-[facility] Dept. of Pathology, [place], [place] CLINICAL INFORMATION Specimen Submitted: A - [...] labeled E1-E2. 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 documented in this encounter Administered Medications Inactive Administered Medications - up to 3 most recent administrations Medication Order MAR Action Action Date Dose Rate Site fentaNYL 50 mcg/mL multi-dose injection ONCE PRN, Starting on Sat10/29/18 at 1610, Until Sat10/29/18 at 2010, Intra-Operative (Intra-Procedure), Routine Given 10/29/2018 4:25 PM EST 50 mcg Given 10/29/2018 4:20 PM EST 50 mcg Given 10/29/2018 4:16 PM EST 50 mcg lactated Ringers infusion 200 mL/hr, Intravenous, CONTINUOUS, Starting on Sat10/29/18 at 1600, Until Sat10/29/18 at 1809, Endoscopy (Day of Procedure) New Bag 10/29/2018 3:43 PM EST 200 mL/hr 200 mL/hr midazolam (PF) (VERSED) multi-dose injection ONCE PRN, Starting on Sat10/29/18 at 1611, Until Sat10/29/18 at 2009, Intra-Operative (Intra-Procedure), Routine Given 10/29/2018 5:00 PM EST 1 mg Given 10/29/2018 4:34 PM EST 1 mg Given 10/29/2018 4:25 PM EST 1 mg documented in this [...] on Sat10/29/18 at 1610, Until Sat10/29/18 at 2009, Intra-Operative (Intra-Procedure), Routine [...] Barby Medina RN)1634 (Given - Provider: Barby Medina RN)1700 (Given - Provider: Barby Medina RN) documented in this encounter Care Teams Leather Piece Inspector Relationship Specialty Start Date End Date Aurelia Bobby MD [address] [place] [address] PCP - General 08/31/14 01/23/24 documented as of this encounter
--- OUTSIDE RECORDS SUMMARY | 2024-07-15 14:30 | XMS_ITS | Encounter Summary ---
Author Organization [facility] [place] [address] Care Team Providers Care Client Care Consultant Name Role Phone Aurelia Bobby MD Primary Care Provider [phone] Encounter Details Date Type Department Care Team (Late st Contact Info) Description 11/17/2018 Ancillary Procedure [place] [address] Tres Graham MD [facility] [address] Social History Tobacco Use Types Packs/Day Years [...] Dermatology at [facility] [address] [place] [address] Ruma Echavarria MD [facility] [address] [place] [address] documented as of this encounter Procedures Procedure Name Priority Date/Time Associated Diagnosis Comments FILM LIBRARY STORAGE ONLY DX HIP Routine 11/17/2018 12:00 AM EST documented in this encounter Results * Film Library- Storage Only DX Hip (11/17/2018 12:00 AM EST) Narrative [facility] - 12/11/2018 10:33 AM EST This exam is for storage only and is auto-finalizing. Tres Graham MD IMG FILM LIBRARY ORDERABLES Performing Organization Address City/State/[facility] Co de Phone Number [place], [place] documented in this encounter Visit Diagnoses Not on filedocumented in this encounter Care Teams Client Care Consultant Relationship Specialty Start Date End Date Aurelia Bobby MD [address] [place] [address] PCP - General 08/31/14 01/23/24 documented as of this encounter
--- OUTSIDE RECORDS SUMMARY | 2024-07-15 14:30 | XMS_ITS | Encounter Summary ---
Author Organization [facility] [place] [address] Care Team Providers Care Channel Machine Operator Name Role Phone Aurelia Bobby MD Primary Care Provider [phone] Encounter Details Date Type Department Care Team (Late st Contact Info) Description 12/16/2017 External Results Hematology [place] [address] Keena Bhakta, RN Social History Tobacco Use [...] EDT Office Visit Dermatology at [facility] [address] [place] [address] Ruma Echavarria MD [facility] [address] [place] [address] documented as of this encounter Procedures Procedure Name Priority Date/Time Associated Diagnosis Comments CBC (WITH DIFF) Routine 12/13/2017 10:10 AM EST COMPREHENSIVE METABOLIC PANEL Routine 12/13/2017 10:10 AM EST documented in this encounter Results * (ABNORMAL) Comprehensive metabolic panel (non-fasting) (12/13/2017 10:10 AM EST) Glucose 121(A) 70 - 100 Blood Urea Nitrogen 11(Sponge Buffer al Lab) 7 - 18 Creatinine 0.97(Exte rnal Lab) 0.55 - 1.02 Sodium 138(Exter nal Lab) 136 - 145 Potassium 3.5(Exter nal Lab) 3.5 - 5.1 Chloride 104(Exter nal Lab) 98 - 107 Carbon Dioxide 23(Sponge Buffer al Lab) 21 - 32 Calcium 8.8(Exter nal Lab) 8.5 - 10.1 Protein, Total 7.2(Exter nal Lab) 6.4 - 8.2 Albumin 3.8(Exter nal Lab) 3.4 - 5 Bilirubin, Total 0.33(Exte rnal Lab) 0.2 - 1.0 Alkaline Phosphatase 86(Sponge Buffer al Lab) 46 - 116 Aspartate Aminotransferase 11(FLIGHT CONTROL TOWER OPERATOR AL/ABN) 15 - 37 Alanine Aminotransferase 13(FLIGHT CONTROL TOWER OPERATOR AL/ABN) 14 - 59 Blood specimen (specimen) 12/13/2017 10:10 AM EST Historical Provider CHEMISTRY ORDERAB LES * (ABNORMAL) CBC (with Diff) (12/13/2017 10:10 AM EST) White Blood Cell 7.22(Exter nal Lab) 4.4 - 10.8 Hemoglobin 13.3(Exter nal Lab) 12.0 - 15.5 Hematocrit 40.5(Exter nal Lab) 36.0 - 46.0 Platelet 256(Sponge Buffer al Lab) 130 - 400 ANC 4.35(Exter nal Lab) 1.2 - 6.7 Blood specimen (specimen) 12/13/2017 10:10 AM EST Historical Provider HEMATOLOGY ORDERA BLES documented in this encounter Visit Diagnoses Not on filedocumented in this encounter Care Teams Channel Machine Operator Relationship Specialty Start Date End Date Dobbertin, Aurelia, MD [address] [place] [address] PCP - General 08/31/14 01/23/24 documented as of this encounter
--- OUTSIDE RECORDS SUMMARY | 2024-07-15 14:30 | XMS_ITS | Encounter Summary ---
[place] [address] Care Team Providers Care Scuba Diver Name Role Phone Aurelia Bobby MD Primary Care Provider [phone] Encounter Details Date Type Department Care Team (Late st Contact Info) Description 06/17/2018 Telephone [place] [address] Pat Burrows MSW Social History Tobacco Use Types Packs/Day Years [...] Miscellaneous Notes * Telephone Encounter - Pat Burrows MSW - 06/17/2018 2:46 PM EDT [facility] HOT PIPE GAUGER Phone call Reached out to patient following request from nursing to provide support and assess emotional distress. Spoke with patient who was initially distant and unwlcoming of HOT PIPE GAUGER call. After speaking with her for a period of time she was very welcoming of call. Provided strengths based supportive counseling, processing life changes and reflecting on her life. States that she has been tapering her sertraline because she does not feel it is helping her as much as it used to. She feels her depressed and weepy mood is due to this and feeling for the first time in a long time. She shared that she has been following a medically guided and supported taper with her psychiatrist. States she has a strong support network between her , children and friends. She feels that her struggles revolve around processing her own experiences as a child and reflecting on how her life has turned out. Provided reflective listening and reassurance that it's common to process the different experiencesin life while trying to make meaning out of her life. Explored various emotional response she has had. She denies suicidal ideation but does admit she has thought about this in the past. States I would not do that, because I have too much to live for and I am still needed here. States her strength come from more eclectic spirituality and she enjoys reading congregation writings. She seemed to benefit very much from supportive presence. Open to further support and follow up from me. S/P 1. CCM follow up in 1 week for support 2. Explore various options for longer term counseling documented in this encounter Plan of Treatment Upcoming Encounters Date Type Department Care Team (Late st Contact Info) Description 09/01/2024 4:30 PM EDT Office Visit Dermatology at [facility] [address] [place] [address] Ruma Echavarria MD [facility] [address] ABDIR[address] [address] documented as of this encounter Visit Diagnoses Not on filedocumented in this encounter Care Teams Scuba Diver Relationship Specialty Start Date End Date Aurelia Bobby MD [address] [place] [address] PCP - General 08/31/14 01/23/24 documented as of this encounter
--- OUTSIDE RECORDS SUMMARY | 2024-07-15 14:30 | XMS_ITS | Encounter Summary ---
Author Organization [facility] Address [facility] [place] [address] Care Team Providers Care Bus And Sys Integration Senior Manager Name Role Phone Aurelia Bobby MD Primary Care Provider [phone] Encounter Details Date Type Department Care Team (Late st Contact Info) Description 05/27/2018 - 05/27/2018 11:59 PM EDT Hospital Encounter [place] [phone] Tres Graham MD [facility] [place] [address] Discharge Disposition: Home Social History Tobacco Use [...] EDT Office Visit Dermatology at [facility] [address] [place] [address] Ruma Echavarria MD [facility] DR ABDIR[address] [address] documented as of this encounter Procedures Procedure Name Priority Date/Time Associated Diagnosis Comments FILM LIBRARY STORAGE ONLY CT ABDOMEN AND PELVIS Routine 05/27/2018 12:00 AM EDT documented in this encounter Results * Film Library- Storage Only CT Abdomen & Pelvis (05/27/2018 12:00 AM EDT) Narrative [facility] - 05/29/2018 5:44 PM EDT This exam is for storage only and is auto-finalizing. Tres Graham MD IMG FILM LIBRARY ORDERABLES Performing Organization Address City/State/[facility] Co de Phone Number [place], [place] documented in this encounter Visit Diagnoses Not on filedocumented in this encounter Care Teams Bus And Sys Integration Senior Manager Relationship Specialty Start Date End Date Aurelia Bobby MD [address] [place] [address] PCP - General 08/31/14 01/23/24 documented as of this encounter
--- OUTSIDE RECORDS SUMMARY | 2024-07-15 14:30 | XMS_ITS | Encounter Summary ---
[place] [address] Care Team Providers Care Interlocking Machine Operator Name Role Phone Aurelia Bobby MD Primary Care Provider [phone] Encounter Details Date Type Department Care Team (Late st Contact Info) Description 06/03/2018 Telephone [place] [phone] Keena Bhakta, RN Social History Tobacco Use [...] Telephone Encounter - Keena Bhakta, RN - 06/03/2018 1:52 PM EDT Message received from alumni secretary: Please call patient at [phone] scans from [facility] Discussed CT scan results with Dr. Graham. Advised to let pt know Dr. Graham has reviewed scans & does not see anything concerning at this time but feels like she should still proceed with endoscopy as per recommended by PCP. Call placed to patient to discuss above. Pt with no other questions or concerns at this time. She will RTC as scheduled 06/17. Encouraged to call back to clinic with further questions or concerns. documented in this encounter Plan of Treatment Upcoming Encounters Date Type Department Care Team (Late st Contact Info) Description 09/01/2024 4:30 PM EDT Office Visit Dermatology at [facility] [address] [place] [address] Ruma Echavarria MD [facility] [address] [place] [address] documented as of this encounter Visit Diagnoses Not on filedocumented in this encounter Care Teams Interlocking Machine Operator Relationship Specialty Start Date End Date Aurelia Bobby MD [address] [place] [address] PCP - General 08/31/14 01/23/24 documented as of this encounter
--- OUTSIDE RECORDS SUMMARY | 2024-07-15 14:30 | XMS_ITS | Encounter Summary ---
Author Organization [facility] [place] [address] Care Team Providers Care Billing Adjudicator Name Role Phone Aurelia Bobby MD Primary Care Provider [phone] Encounter Details Date Type Department Care Team (Latest Contact Info) Description 10/01/2018 9:09 AM EST - 10/01/2018 1:29 PM EST Hospital En[place] [address] [facility] [place] [address] Discharge Disposition: Home Social History Tobacco Use [...] Sign Reading Time Taken Comments Blood Pressure 104/68 10/01/2018 12:40 PM EST Pulse 72 10/01/2018 12:05 PM EST Temperature 36.6 ??C (97.9 ??F) 10/01/2018 9:23 AM ES T Respiratory Rate 16 10/01/2018 12:40 PM EST Oxygen Saturation 94% 10/01/2018 12:40 PM EST Inhaled Oxygen Concentration - - [...] better as expected. Saturday-Saturday Same Day Endo [phone] [id number] Otherwise contact [phone] and ask to speak to the department editor assessment nurse practitioner Follow-up care is a guerrero part of [...] PM EDT Office Visit Dermatology at [facility] [address] [place] [address] [facility] [address] [address] documented as of this encounter Procedures Procedure [...] PM EST 10/01/2018 12:04 PM EST Narrative [facility] - 10/01/2018 12:04 PM EST Specimen requisition ordered. ??Separate Pathology report to follow Viola Prieto MD PATHOLOGY/CYTOLOGY O RDERABLES [facility] [place] [address] * Specimen to Pathology (10/01/2018 12:04 PM EST) AP Specimen 10/01/2018 12:0 4 PM EST 10/01/2018 12:04 PM EST Narrative [facility] - 10/01/2018 12:04 PM EST Specimen requisition ordered. ??Separate Pathology report to follow Viola Prieto MD PATHOLOGY/CYTOLOGY O RDERABLES [facility] [place] [address] * Specimen to Pathology (10/01/2018 12:04 PM EST) AP Specimen 10/01/2018 12:0 4 PM EST 10/01/2018 12:04 PM EST Narrative [facility] - 10/01/2018 12:04 PM EST Specimen requisition ordered. ??Separate Pathology report to follow Viola Prieto MD PATHOLOGY/CYTOLOGY O SULLY [facility] [place] [address] * Surgical Pathology Report (10/01/2018 11:45 AM EST) Final Diagnosis [id number] ? Location: 4T; EA07; A The signing [...] Ramesh MD Verified: ??10/07/2018 ?Pathologist Performed at: ??-[facility] Dept. of Pathology, [place], [place] CLINICAL INFORMATION Specimen Submitted: A - [...] labeled C1. ??ejr 10/07/2018 2:09 PM EST [facility] GI Biopsy 10/01/2018 11:4 5 AM EST 10/01/2018 11:45 AM EST GI Biopsy 10/01/2018 11:4 5 AM EST 10/01/2018 11:45 AM EST GI Biopsy 10/01/2018 11:4 5 AM EST 10/01/2018 11:45 AM EST Viola Prieto MD PATHOLOGY/CYTOLOGY O RDERABLES [facility] [place] [place] [address] * UPPER GI ENDOSCOPY (10/01/2018 11:10 AM EST) UPPER GI ENDOSCOPY [facility] Endoscopy Procedure Date: 10/01/2018 11:10 AM ? Patient Name: Isaura Arellano ? Date of : 1950 ? Age: 68 ? Order #: [id number] ? Instrument Name: [id number] ? Procedure: ? Upper GI endoscopy Indications: ? Abnormal CT of the GI tract, Duodenal ? mass on recent EGD ? lipoma Providers: ? Viola Prieto MD, Barby ? Candis Medina, Special Education Kindergarten Teacher Referring : ?Aurelia Bobby MD, Nubia Loya [...] EST Aurelia Bobby MD [facility] Performing Organization Address City/State/[facility] Co de Phone Number [place] documented in this encounter Visit Diagnoses [...] Routine 1126 (Given - Provid er: Barby eMdina RN)1129 (Given - Provider: Barby Medina RN)1135 (Given - Provider: Barby Medina RN)1139 (Given - Provider: Barby Medina RN) documented in this encounter Care Teams Billing Adjudicator Relationship Specialty Start Date End Date Aurelia Bobby MD [address] [place] [address] PCP - General 08/31/14 01/23/24 documented as of this encounter
--- OUTSIDE RECORDS SUMMARY | 2024-07-15 14:31 | XMS_ITS | Encounter Summary ---
Author Organization [facility]ly [facility] Address [facility] [place] [address] Care Team Providers Care Robot Technician Name Role Phone Aurelia Bobby MD Primary Care Provider [phone] Encounter Details Date Type Department Care Team (Late st Contact Info) Description 03/11/2017 - 03/11/2017 11:59 PM EDT Hospital Encounter [place] [phone] Tres Graham MD [facility] [place] [address] Pain Discharge Disposition: Home Social History Tobacco [...] mouth 2 times daily as needed. 09/15/2015 b complex vitamins Capsule Take 1 capsule [...] mg Tablet Twice a day 08/03/2015 01/25/2020 cyanocobalamin 500 mcg Tablet Take 500 mcg by mouth daily. 03/19/2017 magnesium oxide (MAG-OX) 400 mg Tablet Take 500 mg by mouth daily. 01/26/2021 hydrOXYzine (VISTARIL) 25 mg Capsule Take 10 mg by mouth 3 times daily as needed for Itching. 03/19/2017 topiramate (TOPAMAX) 50 mg TabletIndications:Non-s mall cell carcinoma of left lung, stage 1 Take 50 mg by mouth 2 times daily. 10/01/2018 propranolol (INDERAL) 20 mg Tablet Take 20 mg by mouth daily. 03/19/2017 fluticasone-salmeterol (ADVAIR DISKUS) 250-50 mcg/dose Disk with [...] by mouth daily. Reported on 03/19/2017 01/25/2020 OXYCODONE HCL (OXYCODONE ORAL) Take 0-2 tablets by mouth daily as needed. 7 documented as of this encounter Plan of Treatment Upcoming Encounters Date Type Department Care Team (Late st Contact Info) Description 09/01/2024 4:30 PM EDT Office Visit Dermatology at [facility] [address] [place] [address] Ruma Echavarria MD [facility] DR A[address] [address] documented as of this encounter Procedures Procedure Name Priority Date/Time Associated Diagnosis Comments FILM LIBRARY STORAGE ONLY CT CHEST Routine 03/11/2017 12:00 AM EDT Pain documented in this encounter Results * Film Library- Storage Only CT Chest (03/11/2017 12:00 AM EDT) Narrative [facility] - 03/11/2017 6:25 PM EDT This exam is for storage only and is auto-finalizing. Tres Graham MD IMG FILM LIBRARY ORDERABLES Performing Organization Address City/State/[facility] Co de Phone Number [place], [place] documented in this encounter Visit Diagnoses Diagnosis Pain Generalized pain documented in this encounter Care Teams Robot Technician Relationship Specialty Start Date End Date Aurelia Bobby MD [address] [place] [address] PCP - General 08/31/14 01/23/24 documented as of this encounter
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
--- OUTSIDE RECORDS SUMMARY | 2024-07-15 14:31 | XMS_ITS | Encounter Summary ---
Author Organization [facility] [place] [address] Care Team Providers Care Twine Winder Name Role Phone Aurelia Bobby MD Primary Care Provider [phone] Encounter Details Date Type Department Care Team (Late st Contact Info) Description 03/20/2016 Orders Only Hematology [place] [address] Elsie Cruz APRN [facility] [place]OLOG[place] [address] Non-small cell carcinoma of left lung, stage [...] at [facility] [address] [place] [address] Ruma Echavarria MD [facility] DR ABDIRAH[place] [address] documented as of this encounter Results * Request for 2nd read MR Head (03/20/2016 10:41 AM EDT) Anatomical Region Laterality Modality Computed Tomogra phy Impressions 03/22/2016 8:48 AM EDT IMPRESSION: No evidence of metastatic neoplasm. Inflammatory changes of the paranasal sinuses. Narrative 03/22/2016 8:48 AM EDT EXAMINATION: REQUEST FOR 2ND READ MR HEAD CLINICAL HISTORY: resected stage IB non-small cell lung cancer with increasing headaches, Evaluate for metastatic disease, What Modality is the exam? MRI, Body Part (please add comments as necessary): Brain, I believe a reinterpretation of this exam may alter care of Patient. Yes TECHNIQUE: MRI of the brain was obtained both before and after the administration of intravenous contrast. COMPARISON: MRI of brain of 01/14/2004 FINDINGS: There is age-consistent enlargement of the ventricles and sulci. There is a 8 mm triangular focus of signal matching that of CSF within the right thalamus. It is not evident on the MRI of 2003 but is described on the report for the MRI of 09/03/2014 (those images are not available at this time). There are a few small scattered foci of T2 prolongation in the white matter of the cerebral hemispheres unchanged from those present in 2004. There is no mass or abnormal enhancement. Leptomeninges are of normal appearance. No expansile or destructive osseous lesion is evident. There is no acute infarction or intracranial hemorrhage. There is mucosal thickening within the paranasal sinuses. Mastoid air cells are clear. The orbits are of normal appearance. Procedure Note Gallito Burt MD - 03/22/2016 EXAMINATION: REQUEST FOR 2ND READ MR HEAD CLINICAL HISTORY: resected stage IB non-small cell lung cancer withincreasing headaches, Evaluate for metastatic disease, What Modality is the exam?MRI, Body Part (please add comments as necessary): Brain, I believe areinterpretation of this exam may alter care of Patient. Yes TECHNIQUE: MRI of the brain was obtained both before and after the administration of intravenous contrast. COMPARISON: MRI of brain of 01/14/2004 FINDINGS: There is age-consistent enlargement of the ventricles and sulci. There hilda 8 mm triangular focus of signal matching that of CSF within the right thalamus.It is not evident on the MRI of 2004 but is described on the report for the MRIof 09/03/2014 (those images are not available at this time). There are a fewsmall scattered foci of T2 prolongation in the white matter of the cerebral hemispheres unchanged from those present in 2004. There is no mass orabnormal enhancement. Leptomeninges are of normal appearance. No expansile ordestructive osseous lesion is evident. There is no acute infarction or intracranial hemorrhage. There is mucosal thickening within the paranasal sinuses.Mastoid air cells are clear. The orbits are of normal appearance. IMPRESSION IMPRESSION: No evidence of metastatic neoplasm. Inflammatory changes of the paranasal sinuses. Tres Graham MD IMG OUTSIDE INTE RPRETATION ORDERABLES documented in this encounter Visit Diagnoses Diagnosis Non-small cell carcinoma of left lung, stage 1 Non-small cell carcinoma of left lung, stage 1 documented in this encounter Care Teams Twine Winder Relationship Specialty Start Date End Date Aurelia Bobby MD [address] [place] [address] PCP - General 08/31/14 01/23/24 documented as of this encounter
--- OUTSIDE RECORDS SUMMARY | 2024-07-15 14:31 | XMS_ITS | Encounter Summary ---
Author Organization [facility] [place] [address] Care Team Providers Care Teacher'S Aide Name Role Phone Aurelia Bobby MD Primary Care Provider [phone] Reason for Visit * Reason Comments Follow-up Encounter Details Date Type Department Care Team (Late st Contact Info) Description 04/13/2015 4:15 PM EDT Follow-Up Hematology [place] [id number] Tres Graham MD [facility] [place] [address] Adenocarcinoma, lung, left; Non-small cell carcinoma of left lung, stage [...] Sign Reading Time Taken Comments Blood Pressure 119/71 04/13/2015 4:14 PM EDT Pulse 77 04/13/2015 4:14 PM EDT Temperature 36.7 ??C (98.1 ??F) 04/13/2015 4:14 PM ED T Respiratory Rate 18 04/13/2015 4:14 PM EDT Oxygen Saturation 99% 04/13/2015 4:14 PM EDT Inhaled Oxygen Concentration - - Weight 71.5 kg (157 lb 10.1 oz) 04/13/2015 4:14 PM EDT Height 162.9 cm (5' 4.13) 04/13/2015 4:14 PM ED T Body Mass Index 26.94 04/13/2015 4:14 PM EDT documented in this encounter Patient Instructions * Patient Instructions* Catherine Mejia RN - 04/13/2015 4:54 PM EDT Hematology Oncology Thoracic Instructions Your team members are: Dr Tres Aguiar ,clinical community youth secretary Dionna Lo, clinical community youth secretary The office number is: [phone], nurse available to speak with Mon- Fri., [...] documented in this encounter Progress Notes * Tres Graham MD - 04/13/2015 7:33 PM EDT Thoracic Oncology Follow-up Evaluation HPI: 64 year old female with stage 1B lung adenocarcinoma [id number], s/p JOHNNY lobectomy on 08/09/2014 (surgery revealed a 1.8 cm moderately differentiated adenocarcinoma. No LVI. +visceral pleura invasion. Closest margin 3.5cm. 3 hilar LNs negative, a level 5 LN negative, 10L sump node negative, level 11 LN negative, level 7 LN negative, level 9 LN negative). The patient has recovered from the toxicities of treatment. Denies any difficulty swallowing, appetite is good. There is still some fatigue with associated mild dyspnea on exertion, occasional cough with clear sputum production. No hemoptysis. There has been no fevers. No new pain, her long-standing right hip pain has increased over the past few weeks. She reports persistent postoperative discomfort of the left chest, unchanged from 3 months ago. There are no headaches. Bowel movements are regular, no bleeding, no dysuria. PMH HTN DJD Asthma Depression PSH S/p [...] children. 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 Physical Examination BP 119/71 Pulse 77 Temp(Src) 36.7 ??C (98.1 ??F) Resp 18 Ht 162.9 cm (5' 4.13) Wt 71.5 kg (157 lb 10.1 oz) BMI 26.94 kg/m2 SpO2 99% General: alert, conversant, NAD HEENT: PERRLA, EOMI, mmm, no oropharyngeal lesions, erythema or exudates Neck: no palpable lymphadenopathy (including axillary lymphadenopathy) CVS: regular S1S2 without MRG Chest: CTAB, no crackles or wheezes, mildly decreased breath sounds throughout, scars are healing well Abdomen: soft, NT, ND, BS+ Extremities: no edema, no calf tenderness Neuro: ambulatory, CN 2-12 grossly intact, moves all 4 extremities Skin: no visible rashes, surgery scars present healed well, skin P/W/D Lab Results: Recent Results (from the past 24 hour(s)) COMPREHENSIVE METABOLIC PANEL (NON-FASTING) Result Value Ref Range Glucose Lvl 94 65 - 199 mg/dL BUN 17 8 - 18 mg/dL Creatinine 0.74 0.70 - 1.20 mg/dL Sodium 145 135 - 145 mmol/L Potassium 4.0 3.5 - 5.0 mmol/L Chloride 101 98 - 107 mmol/L CO2 29 22 - 31 mmol/L Anion Gap 15 5 - 15 mmol/L Calcium 9.7 8.5 - 10.5 mg/dL Total Protein 7.4 6.1 - 8.0 gm/dL Albumin 4.3 3.2 - 5.2 gm/dL AST 17 0 - 30 unit/L ALT 19 0 - 30 unit/L Alk Phos 92 40 - 104 unit/L Total Bilirubin <0.2 (*) 0.2 - 1.3 mg/dL Bili, Direct 0.1 0.0 - 0.3 mg/dL Estimated GFR >60 >=60 HEMOGRAM Result Value Ref Range WBC 9.9 4.0 - 10.0 x10(3)/mcL RBC 4.43 3.93 - 5.22 x10(6)/mcL Hemoglobin 14.2 11.2 - 15.7 gm/dL Hematocrit 42.6 34.0 - 45.0 % MCV 96.2 (*) 79.0 - 94.0 fL MCH 32.1 26.6 - 32.2 pg MCHC 33.3 32.0 - 36.5 gm/dL Platelets 259 145 - 370 x10(3)/mcL RDWSD 50.0 (*) 35.0 - 46.0 fL RDWCV 14.2 10.9 - 14.4 % MPV 9.4 9.0 - 12.0 fL DIFFERENTIAL, AUTOMATED Result Value Ref Range Neutrophils % 66.5 Neutr Abs (ANC) 6.59 (*) 1.50 - 6.30 x10(3)/mcL Lymphocytes % 24.7 Lymphocytes Abs 2.4 1.0 - 3.6 x10(3)/mcL Monocytes % 6.5 Monocyte Abs 0.6 0.2 - 1.0 x10(3)/mcL Eosinophils % 1.8 Eosinophils Abs 0.2 0.0 - 0.5 x10(3)/mcL Basophils % 0.3 Basophils Abs 0.0 0.0 - 0.2 x10(3)/mcL Immature Gran % 0.20 Pavithra Gran Abs 0.02 0.00 - 0.05 x10(3)/mcL SCAN, PERIPHERAL BLOOD Result Value Ref Range Plat Estimate Normal RBC Morphology Normal Radiology: I personally reviewed a PET/CT from October 2014 that showed no evidence for regional or distant metastatic disease. A/P: A 64-year-old patient with history of resected stage IB [...] as cardiovascular and pulmonary complications, among others. We talked about her right hip pain that has features suggestive of degenerative joint disease. Metastatic disease cannot be excluded and if her pain increases, she will call us so that additional evaluation be performed. We talked about the expected time course for recovery of postoperative pain. The patient and her had numerous questions that were answered to their satisfaction. I advised to call if there are any fever, shortness of breath, new pain, weakness, bleeding or any other unusual medical symptoms. We will arrange for a restaging chest CT to be done locally at [facility], as per her request. We will call her with the results. The patient will come back in 4 months for reevaluation. documented in this encounter Plan of Treatment Upcoming Encounters Date Type Department Care Team (Late st Contact Info) Description 09/01/2024 4:30 PM EDT Office Visit Dermatology at [facility] [address] [place] [address] Ruma Echavarria MD [facility] [address] ABDIRAH[place] [address] documented as of this encounter Procedures Procedure Name Priority Date/Time Associated Diagnosis Comments SCAN, PERIPHERAL BLOOD STAT 5 2:57 PM EDT HEMOGRAM STAT 04/13/2015 2:57 PM EDT Adenocarcinoma, lung, left Non-small cell carcinoma of left lung, stage 1 DIFFERENTIAL, AUTOMATED STAT 04/13/2015 2:57 PM EDT Adenocarcinoma, lung, left Non-small cell carcinoma of left lung, stage 1 CBC (WITH DIFF) STAT 04/13/2015 2:57 PM EDT Adenocarcinoma, lung, left Non-small cell carcinoma of left lung, stage 1 COMPREHENSIVE METABOLIC PANEL STAT 04/13/2015 2:57 PM EDT Adenocarcinoma, lung, left Non-small cell carcinoma of left lung, stage 1 documented in this encounter Results * Scan, Peripheral Blood (04/13/2015 2:57 PM EDT) Plat estimate Normal CERNER MILLENNIUM RBC Morphology Normal CERNE R MILLENNIUM Blood specimen (specimen) 04/13/2015 2:57 PM EDT 04/13/2015 3:03 PM EDT Narrative Resulting Agency Comment Spec In Lab Ters Graham MD HEMATOLOGY ORDER LACEY CERNER MILLENNIUM * (ABNORMAL) Differential, Automated (04/13/2015 2:57 PM EDT) Neutrophil % 66.5 % CERNER MILLENNIUM Neutrophil Absolute 6.59(H) 1.50 - 6.30 x10(3)/mc L CERNER MILLENNIUM Lymph % 24.7 % CERNER MILLENNIUM Lymphocytes Abs 2.4 1.0 - 3.6 x10(3)/mc L CERNER MILLENNIUM Monocyte % 6.5 % CERNER MILLENNIUM Monocyte Abs 0.6 0.2 - 1.0 x10(3)/mc L CERNER MILLENNIUM Eos % 1.8 % CERNER MILLENNIUM Eosinophils Abs 0.2 0.0 - 0.5 x10(3)/mc L CERNER MILLENNIUM Basophil % 0.3 % CERNER MILLENNIUM Baso Absolute 0.0 0.0 - 0.2 x10(3)/mc L CERNER MILLENNIUM Immature Gran % 0.20 % CERN ER MILLENNIUM Comment: Immature granulocytes(IG's)percentage and absolute count will include metamyelocytes, myelocytes, and promyelocytes. Blood smears from CBCs yielding IG's will be scanned manually for concordance. If this scan disagrees with the automated IG or if promyelocytes are noted, a manual differential will be performed. Immature Gran Absolute 0.02 0.00 - 0.05 x10(3)/mc L CERNER MILLENNIUM Blood specimen (specimen) 04/13/2015 2:57 PM EDT 04/13/2015 3:03 PM EDT Narrative Resulting Agency Comment Spec In Lab Tres Graham MD HEMATOLOGY ORDER LACEY CERNER JESEENNIUM * (ABNORMAL) Hemogram (04/13/2015 2:57 PM EDT) White Blood Cell 9.9 4.0 - 10.0 x10(3)/mc L CERNER MILLENNIUM Red Blood Cell 4.43 3.93 - 5.22 x10(6)/mc L CERNER MILLENNIUM Hemoglobin 14.2 11.2 - 15.7 gm/dL CERNER MILLENNIUM Hematocrit 42.6 34.0 - 45.0 % CERNER MILLENNIUM Mean Cell Volume 96.2(H) 79.0 - 94.0 fL CERNER MILLENNIUM Mean Cell Hemoglobin 32.1 26.6 - 32.2 pg CERNER MILLENNIUM Mean Cell Hemoglobin Concentration 33.3 32.0 - 36.5 gm/dL CERNER MILLENNIUM Platelet 259 145 - 370 x10(3)/mc L CERNER MILLENNIUM RDW Standard Deviation 50.0(H) 35.0 - 46.0 fL CERNER MILLENNIUM RDW coefficient of variation 14.2 10.9 - 14.4 % CERNER MILLENNIUM Mean Platelet Volume 9.4 9.0 - 12.0 fL CERNER MILLENNIUM Blood specimen (specimen) 04/13/2015 2:57 PM EDT 04/13/2015 3:03 PM EDT Narrative Resulting Agency Comment Spec In Lab Tres Graham MD HEMATOLOGY ORDER LACEY CERRAQUEL MILLENNIUM * (ABNORMAL) Comprehensive metabolic panel (non-fasting) (04/13/2015 2:57 PM EDT) [facility] Glucose 94 65 - 199 mg/dL CERNER MILLENNIUM Comment:Diabetes: >=200 mg/d L plus symptoms Blood Urea Nitrogen 17 8 - 18 mg/dL CERNER MILLENNIUM Creatinine 0.74 0.70 - 1.20 mg/dL CERNER MILLENNIUM Comment: Please note that the pediatric reference intervals supplied above were not validated at [facility]. Results from pediatric patients should be interpreted in conjunction to the patient's age, height and muscle mass. Sodium 145 135 - 145 mmol/L CERNER MILLENNIUM Potassium 4.0 3.5 - 5.0 mmol/L CERNER MILLENNIUM Comment: Please note: ??Patients with WBC >100,000 may have falsely elevated Potassium levels. ??For accurate Potassium quantification in these patients send serum separator tube (gold top) for subsequent determinations. ??Contact the Clinical Chemistry Laboratory if there are any questions. Chloride 101 98 - 107 mmol/L CERNER MILLENNIUM Carbon Dioxide 29 22 - 31 mmol/L CERNER MILLENNIUM Anion Gap 15 5 - 15 mmol/L CERNER MILLENNIUM Calcium 9.7 8.5 - 10.5 mg/dL CERNER MILLENNIUM Protein, Total 7.4 6.1 - 8.0 gm/dL CERNER MILLENNIUM Albumin 4.3 3.2 - 5.2 gm/dL CERNER MILLENNIUM Aspartate Aminotransferase 17 0 - 30 unit/L CERNER MILLENNIUM Alanine Aminotransferase 19 0 - 30 unit/L CERNER MILLENNIUM Alkaline Phosphatase 92 40 - 104 unit/L CERNER MILLENNIUM Bilirubin, Total <0.2(L) 0.2 - 1.3 mg/dL CERNER MILLENNIUM Bilirubin, Direct 0.1 0.0 - 0.3 mg/dL CERNER MILLENNIUM Est Glomerular Filtration Rate >60 >=60 CERNER MILLENNIUM Comment: This estimated GFR (eGFR) value was calculated using the MDRD equation which has been validated on patients between the ages of 18 and 70. The MDRD should not be used to assess kidney function in patients < 18 years of age or in patients with extremes of body mass, or in patients with acute kidney failure. This value should be multiplied by 1.2 for patients. For further information please copy and paste the following links into your internet browser. http://Ad.IQ/DHnkdep http://Ad.IQ/DHMCnkf Blood specimen (specimen) 04/13/2015 2:57 PM EDT 04/13/2015 3:03 PM EDT Narrative Resulting Agency Comment Spec In Lab Tres Graham MD CHEMISTRY ORDERA BLES [facility] documented in this encounter Visit Diagnoses Diagnosis Adenocarcinoma, lung, left Non-small cell carcinoma of left lung, stage 1 documented in this encounter Care Teams Teacher'S Aide Relationship Specialty Start Date End Date Aurelia Bobby MD [address] [place] [address] PCP - General 08/31/14 01/23/24 documented as of this encounter
--- OUTSIDE RECORDS SUMMARY | 2024-07-15 14:31 | XMS_ITS | Encounter Summary ---
Author Organization [facility] [place] [address] Care Team Providers Care Hearing Impaired Itinerant Teacher Name Role Phone Aurelia Bobby MD Primary Care Provider [phone] Encounter Details Date Type Department Care Team (Late st Contact Info) Description 07/07/2015 Orders Only Hematology [place] [address] Tres Graham MD [facility] [place] [address] Social History Tobacco Use Types Packs/Day Years [...] 4:30 PM EDT Office Visit Dermatology at [facility] [address] [place] [address] Ruma Echavarria MD [facility] DR ABDIRAH[place] [address] documented as of this encounter Procedures Procedure Name Priority Date/Time Associated Diagnosis Comments FILM LIBRARY STORAGE ONLY MR LOWER EXTREMITY Routine 07/07/2015 12:10 PM EDT documented in this encounter Results * Film Library- Storage only MR Lower Extremity (07/07/2015 12:10 PM EDT) Anatomical Region Laterality Modality Other 07/07/2015 12:1 0 PM EDT Narrative 08/17/2015 12:24 PM EDT This is a Non-reportable exam Procedure Note CYNTHIA, UNSIGNED REPORT - 08/17/2015 This is a Non-reportable exam Tres Graham MD IMG FILM LIBRARY ORDERABLES documented in this encounter Visit Diagnoses Not on filedocumented in this encounter Care Teams Hearing Impaired Itinerant Teacher Relationship Specialty Start Date End Date Aurelia Bobby MD [address] [place] [address] [address] [place] [address] PCP - General 08/31/14 01/23/24 documented as of this encounter
--- OUTSIDE RECORDS SUMMARY | 2024-07-15 14:31 | XMS_ITS | Encounter Summary ---
Author Organization [facility] [place] [address] Care Team Providers Care Well Logging Mud Analysis Captain Name Role Phone Aurelia Bobby MD Primary Care Provider [phone] Reason for Visit * Reason Comments Follow-up Encounter Details Date Type Department Care Team (Late st Contact Info) Description 09/18/2017 10:15 AM EDT Office Visit [place]ematology [place] [address] Tres Graham MD [facility] [place] [address] Elsie Cruz APRN [facility] DR HEMATOLOGY[place] [address] Non-small cell carcinoma of left lung, stage [...] Sign Reading Time Taken Comments Blood Pressure 124/67 09/18/2017 10:17 AM EDT Pulse 64 09/18/2017 10:17 AM EDT Temperature 36.5 ??C (97.7 ??F) 09/18/2017 10:17 AM E DT Respiratory Rate 18 09/18/2017 10:17 AM EDT Oxygen Saturation 94% 09/18/2017 10:17 AM EDT Inhaled Oxygen Concentration - - Weight 63.5 kg (140 lb) 09/18/2017 10:17 AM EDT Height 163 cm (5' 4.17) 09/18/2017 10:17 AM EDT Body Mass Index 23.9 09/18/2017 10:17 AM EDT documented in this encounter Progress Notes * Elsie Cruz Cindy, [employer] CONSULTANT - 09/18/2017 10:15 AM EDT Thoracic Oncology Follow-up Evaluation HPI: 64 year old female with stage 1B lung adenocarcinoma [id number], s/p JOHNNY lobectomy on 08/09/2014 (surgery revealed a 1.8 cm moderately differentiated adenocarcinoma. No LVI. +visceral pleura invasion. Closest margin 3.5cm. 3 hilar LNs negative, a level 5 LN negative, 10L sump node negative, level 11 LN negative, level 7 LN negative, level 9 LN negative). Last seen 03/19/17. There are a couple of new problems since the last visit: 1. Headaches started in June and have been getting progressively worse since that time. Exacerbated by cough, straining. Described as pressure (feels like my head is going to explode). Typically in the left frontal region. HAs start in the AM and persist throughout the day. Using tramadol and marijuana, which take the edge off. 2. There have been 4 episodes of blood-streaked sputum over the past 2 weeks. Last episode was 4 days ago. No blood clots. No change in breathing. No SOB at rest. Minimal MANN. Cough is unchanged fromprior. No chest pain. No fevers/chills or infectious sx. Eating and drinking fine. Weight is down 4 lbs since the last visit, which is intentional. Energy level has been decreased, but improved slightly since starting levothyroxine in June. Her TSH has now normalized. She has recently retired, which she is excited about. No changes in vision, heartburn, N/V, abd pain, diarrhea or constipation, urinary complaints, lightheadedness or dizziness, balance difficulties, focal weakness, sensory complaints, bleeding, rash, new or worsening pain. Notes some difficulty swallowing bread, otherwise no swallowing difficulties (this is not new or different from prior). PMH HTN DJD Asthma Depression PSH S/p [...] 2 grown children. 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 Physical Examination Vitals: 09/18/17 1017 BP: 124/67 Patient Position: Sitting Pulse: 64 Resp: 18 Temp: 36.5 ??C (97.7 ??F) TempSrc: Temporal SpO2: 94% Weight: 63.5 kg (140 lb) Height: 163 cm (5' 4.17) Wt Readings from Last 3 Encounters: 09/18/17 63.5 kg (140 lb) 03/19/17 65.6 kg (144 lb 9.6 oz) 08/22/16 67 kg (147 lb 11.3 oz) General: alert, conversant, NAD HEENT: PERRLA, [...] healed well, skin P/W/D Lab Results: No recent labs available. Radiology: I personally reviewed a chest CT from 09/09/17 which is overall stable except for a slight increasein the enlargement of a subcarinal lymph node (per radiology report, now 14 x 11 mm when previouslymeasured at 14 x 7 mm). A/P: A 66-year-old patient with history of [...] aerodigestive tract. Continued regular surveillance is recommended. Given the slight enlargement of the subcarinal LN over 6 mo, will plan to repeat CT scan in 3 mo. If there is continued enlargement, would then plan toobtain a PET/CT. Instructed her to call if change in breathing, change in cough, chest discomfort, hemoptysis/increase in frequency or quantity of blood- streaked sputum. Given progressive HAs x 2 mo, obtain a brain MRI. This is scheduled locally in 2 days. Continue with routine health maintenance through PCP. I advised her not to start smoking. Obtain lab results from [facility] (done approx 09/09/17). Brain MRI locally this week. Schedule labs andCT scan with contrast locally in 3 mo, and then f/u here. I advised to call if there are any fever,shortness of breath, new pain, weakness, bleeding or any other unusual medical symptoms. documented in this encounter Plan of Treatment Upcoming Encounters Date Type Department Care Team (Late st Contact Info) Description 09/01/2024 4:30 PM EDT Office Visit Dermatology at [facility] [address] [place] [address] Ruma Echavarria MD [facility] [address] [place] [address] documented as of this encounter Visit Diagnoses Diagnosis Non-small cell carcinoma of left lung, stage 1 documented in this encounter Care Teams Well Logging Mud Analysis Captain Relationship Specialty Start Date End Date Aurelia Bobby MD [address] [place] [address] PCP - General 08/31/14 01/23/24 documented as of this encounter
--- OUTSIDE RECORDS SUMMARY | 2024-07-15 14:31 | XMS_ITS | Encounter Summary ---
Author Organization [facility] [place] [address] Care Team Providers Care Director Medical Name Role Phone Aurelia Bobby MD Primary Care Provider [phone] Encounter Details Date Type Department Care Team (Late st Contact Info) Description 08/02/2015 4:45 PM EDT - 08/02/2015 11:59 PM EDT Hospital Encounter [place] [phone] Dr Judy Temporary Pain Discharge Disposition: Home Social History Tobacco [...] Sig Dispensed Refills Start Date End Date albuterol (PROVENTIL HFA;VENTOLIN HFA;PROAIR) 90 mcg/actuation HFA Aerosol Inhaler Inhale 2 puffs into the lungs as needed for Wheezing. Use with spacer 01/28/2024 clonazePAM (KlonoPIN) 0.5 mg Tablet 0.5 mg as needed. 03/03/2014 fluticasone-salmeterol (ADVAIR DISKUS) 250-50 mcg/dose Disk with Device Inhale 1 puff into the lungs every 12 hours. 01/26/2021 clonazePAM (KLONOPIN) 0.5 mg Tablet Take 0.5 mg by mouth 3 times daily as needed for Anxiety. 01/14/2019 losartan-hydrochlorothi azide (HYZAAR) 100-25 mg Tablet Take 1 tablet by mouth daily. 01/17/2016 sertraline (ZOLOFT) 100 mg Tablet Take 100 [...] 4:30 PM EDT Office Visit Dermatology at [address] [address] Ruma Echavarria MD [facility] DR ABDIRAHMAN [place] [address] documented as of this encounter Procedures Procedure Name Priority Date/Time Associated Diagnosis Comments FILM LIBRARY STORAGE ONLY CT HEAD AND SPINE Routine 08/02/2015 4:45 PM EDT Pain documented in this encounter Results * Film Library- Storage Only CT Head And Spine (08/02/2015 4:45 PM EDT) Narrative [facility] - 05/04/2016 2:52 PM EDT This exam is for storage only and is auto-finalizing. Dr Paris BROUSSARD FILM LIBRARY ORD ERABLES [place], [place] documented in this encounter Visit Diagnoses Diagnosis Pain Generalized pain documented in this encounter Care Teams Director Medical Relationship Specialty Start Date End Date Aurelia Bobby MD [address] [facility] 1 [place] [address] PCP - General 08/31/14 01/23/24 documented as of this encounter
--- OUTSIDE RECORDS SUMMARY | 2024-07-15 14:31 | XMS_ITS | Encounter Summary ---
Author Organization [facility] [place] [address] Care Team Providers Care Contour Band Saw Operator Vertical Name Role Phone Aurelia Bobby MD Primary Care Provider [phone] Reason for Visit * Reason Comments Follow-up Encounter Details Date Type Department Care Team (Late st Contact Info) Description 08/22/2016 1:45 PM EDT Office Visit Hematology [place] [address] Tres Graham MD [facility] [place] [address] Elsie Cruz [address]N [facility] DR HEMATOLOGY-[place] [address] Non-small cell carcinoma of left lung, stage [...] Sign Reading Time Taken Comments Blood Pressure 149/88 08/22/2016 1:51 PM EDT Pulse 85 08/22/2016 1:51 PM EDT Temperature 36.6 ??C (97.9 ??F) 08/22/2016 1:51 PM ED T Respiratory Rate 18 08/22/2016 1:51 PM EDT Oxygen Saturation 99% 08/22/2016 1:51 PM EDT Inhaled Oxygen Concentration - - Weight 67 kg (147 lb 11.3 oz) 08/22/2016 1:51 PM EDT Height 164.5 cm (5' 4.75) 08/22/2016 1:51 PM ED T Body Mass Index 24.77 08/22/2016 1:51 PM EDT documented in this encounter Progress Notes * Elsie Bajwa, MARKETING COPYWRITER - 08/22/2016 1:45 PM EDT Thoracic Oncology Follow-up Evaluation HPI: 64 year old female with stage 1B lung adenocarcinoma [id number], s/p JOHNNY lobectomy on 08/09/2014 (surgery revealed a 1.8 cm moderately differentiated adenocarcinoma. No LVI. +visceral pleura invasion. Closest margin 3.5cm. 3 hilar LNs negative, a level 5 LN negative, 10L sump node negative, level 11 LN negative, level 7 LN negative, level 9 LN negative). Last seen 01/17/16. Comes today for routine surveillance. No new concerns since the last visit. She retired 3 weeks ago and this has been great. She has been training her dogs. [facility] Eating and drinking fine. Weight is stable. Energy level is good. Breathing is unchanged from prior. No SOB at rest. Dyspnea with moderate exertion. Intermittent cough which she relates to GERD. No hemoptysis. Left chest wall pain occurs with exertion, unchanged recently. This is managed with pre-medication with oxycodone prior to strenuous activity. No fevers/chills, changes in vision, difficulty swallowing, N/V, abd pain, diarrhea or constipation, urinary complaints, lightheadedness, balance difficulties, falls, focal weakness, sensory complaints, bleeding, rash, new pain. HAs are less frequent. Heartburn with managed with PRN PPI. PMH HTN DJD Asthma Depression PSH S/p [...] children. 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 Physical Examination Vitals: 08/22/16 1351 BP: 149/88 Patient Position: Sitting Pulse: 85 Resp: 18 Temp: 36.6 ??C (97.9 ??F) TempSrc: Temporal SpO2: 99% Weight: 67 kg (147 lb 11.3 oz) Height: 164.5 cm (5' 4.75) Wt Readings from Last 3 Encounters: 08/22/16 67 kg (147 lb 11.3 oz) 01/17/16 67 kg (147 lb 11.3 oz) 09/06/15 72.2 kg (159 lb 2.8 oz) General: alert, conversant, NAD HEENT: PERRLA, [...] present healed well, skin P/W/D Lab Results: Labs (in scanned docs) were reviewed and are unremarkable. Radiology: Chest CT from 08/13/2016 without evidence of disease recurreence A/P: A 64-year-old patient with history of resected stage IB non-small cell lung cancer who has no clinical evidence for recurrence. The patient understands that despite completing all therapy, the risks for recurrence remain. While the risks decrease with time, they do not disappear and the patient will also remain at risk for a new primary cancer of the aerodigestive tract. Continued regular surveillance is recommended. I encouraged her to not re-start smoking. I also encouraged her to follow withher PCP for routine health maintenance. Obtain chest CT and labs in [facility] in 6 mo, and then RTC for a clinic visit the following week. I advised to call if there are any fever, shortness of breath, new pain, weakness, bleeding or any other unusual medical symptoms. documented in this encounter Plan of Treatment Upcoming Encounters Date Type Department Care Team (Late st Contact Info) Description 09/01/2024 4:30 PM EDT Office Visit Dermatology at [facility] [address] [place] [address] Ruma Echavarria MD [facility] [place] [address] documented as of this encounter Visit Diagnoses Diagnosis Non-small cell carcinoma of left lung, stage 1 documented in this encounter Care Teams Contour Band Saw Operator Vertical Relationship Specialty Start Date End Date Aurelia Bobby MD [address] [facility] 1 [place] [address] PCP - General 08/31/14 01/23/24 documented as of this encounter
--- OUTSIDE RECORDS SUMMARY | 2024-07-15 14:31 | XMS_ITS | Encounter Summary ---
Author [facility] [place] [address] Care Team Providers Care Manager College Name Role Phone Aurelia Bobby MD Primary Care Provider [phone] Encounter Details Date Type Department Care Team (Late st Contact Info) Description 12/08/2014 Telephone Hematology [place] [phone] Catherine Mejia RN Social History Tobacco Use Types Packs/Day Years Used Date Smoking Tobacco: Former Sex and Gender Information Value Date Recorded Sex Assigned at Female 06/08/2021 7:37 PM EDT Gender Identity Not on file Sexual Orientation Not on file documented as of this encounter Miscellaneous Notes * Telephone Encounter - Catherine Mejia RN - 12/08/2014 3:43 PM EST Received this message through the order desk caller to Dr Graham: Ms. Arellano called said that she would like to follow up locally with her behavioral health specialist and cancelher February appointments with us. She said that she will contact us if anything should change. documented in this encounter Plan of Treatment Upcoming Encounters Date Type Department Care Team (Late st Contact Info) Description 09/01/2024 4:30 PM EDT Office Visit Dermatology at [facility] [address] [place] [address] Ruma Echavarria MD [facility] [address] ABDIRAHMAN [place] [address] documented as of this encounter Visit Diagnoses Not on filedocumented in this encounter Care Teams Manager College Relationship Specialty Start Date End Date Aurelia Bobby MD [address] [place] [address] PCP - General 08/31/14 01/23/24 documented as of this encounter
--- OUTSIDE RECORDS SUMMARY | 2024-07-15 14:31 | XMS_ITS | Encounter Summary ---
[place] [address] Care Team Providers Care Director Ship Name Role Phone Aurelia Bobby MD Primary Care Provider [phone] Encounter Details Date Type Department Care Team (Late Contact Info) Description 09/04/2017 Orders Only Hematology [place] [address] Luda Schmitt Social History Tobacco Use Types Packs/Day Years [...] as of this encounter Progress Notes * Luda Schmitt - 09/04/2017 8:49 AM EDT Authorization approved for CT to be done at [facility] in [facility] - approved with Maty @ [facility] Specialty Health Auth # [id number] Valid from 09/04-11/02/2017 documented in this encounter Plan of Treatment Upcoming Encounters Date Type Department Care Team (Late Contact Info) Description 09/01/2024 4:30 PM EDT Office Visit Dermatology at [facility] [address] [place] [address] Ruma Echavarria MD [facility] DR ABDIRAHMAN [place] [address] documented as of this encounter Visit Diagnoses Not on filedocumented in this encounter Care Teams Director Ship Relationship Specialty Start Date End Date Aurelia Bobby MD [address] [place] [address] PCP - General 08/31/14 01/23/24 documented as of this encounter
--- OUTSIDE RECORDS SUMMARY | 2024-07-15 14:31 | XMS_ITS | Encounter Summary ---
[place] [address] Care Team Providers Care Tyre Builder Name Role Phone Aurelia Bobby MD Primary Care Provider [phone] Reason for Referral * Consultation (Routine) - Closed Specialty Diagnoses / Procedures Referred By Bk de leon Referred To Contact Thoracic Surgery Diagnoses Non-small cell carcinoma of left lung, stage 1 Alexandro Dcikerson MD [facility] [place] [address] [facility] Thoracic Surg [address] [place] [phone] Referral ID Status Reason Start Date Expiration Date V isits Requested Visits Authorized [id number] Closed Specialty Service Requested 08/31/2015 08/30/2016 1 1 Reason for Visit * Reason Onset Date Comments Medication Refill 08/31/2015 Encounter Details Date Type Department Care Team (Late st Contact Info) Description 08/31/2015 [place] [address] Alexandro Dickerson MD [facility] [place] [address] Non-small cell carcinoma of left [...] at [facility] [address] [place] [address] Ruma Echavarria MD [facility] DR ABDIRAH[place] [address] Scheduled Referrals Name Type Priority Associated Diagnoses Orde r Schedule Referral to Thoracic Surgery Outpatient Referral Routine Non-small cell carcinoma of left lung, stage 1 Ordered: 08/31/2015 documented as of this encounter Visit Diagnoses Diagnosis Non-small cell carcinoma of left lung, stage 1 documented in this encounter Care Teams Tyre Builder Relationship Specialty Start Date End Date Aurelia Bobby MD [address] [facility] [address] [facility] 1 [place] [address] PCP - General 08/31/14 01/23/24 documented as of this encounter
--- OUTSIDE RECORDS SUMMARY | 2024-07-15 14:31 | XMS_ITS | Encounter Summary ---
Author Organization [facility] [place] [address] Care Team Providers Care Civil Cad Tech Name Role Phone Aurelia Bobby MD Primary Care Provider [phone] Encounter Details Date Type Department Care Team (Late st Contact Info) Description 01/18/2016 Orders Only [place]ematology [place] [address] Catherine Rubio Social History Tobacco Use Types Packs/Day Years [...] 4:30 PM EDT Office Visit Dermatology at [facility] [address] [place] [address] Ruma Echavarria MD [facility] [place] [address] documented as of this encounter Visit Diagnoses Not on filedocumented in this encounter Care Teams Civil Cad Tech Relationship Specialty Start Date End Date Aurelia Bobby MD [address] [place] [address] PCP - General 08/31/14 01/23/24 documented as of this encounter
--- OUTSIDE RECORDS SUMMARY | 2024-07-15 14:31 | XMS_ITS | Encounter Summary ---
Author Organization [facility] [place] [address] Care Team Providers Care Authorizer Name Role Phone Aurelia Bobby MD Primary Care Provider [phone] Encounter Details Date Type Department Care Team (Late st Contact Info) Description 08/17/2016 External Results Hematology [place] [address] Keena Bhakta, RN Social History Tobacco Use [...] Dermatology at [facility] [address] [place] [address] Ruma Echavarria MD [facility] [address] [place] [address] documented as of this encounter Procedures Procedure Name Priority Date/Time Associated Diagnosis Comments CBC (WITH DIFF) Routine 08/10/2016 11:20 AM EDT LACTATE DEHYDROGENASE Routine 08/10/2016 11:20 AM EDT COMPREHENSIVE METABOLIC PANEL Routine 08/10/2016 11:20 AM EDT documented in this encounter Results * (ABNORMAL) Lactate Dehydrogenase (08/10/2016 11:20 AM EDT) Lactate Dehydrogenase 130(Exter nal Lab) 81 - 234 Blood specimen (specimen) 08/10/2016 11:20 AM EDT Historical Provider CHEMISTRY ORDERAB LES * (ABNORMAL) Comprehensive metabolic panel (non-fasting) (08/10/2016 11:20 AM EDT) Sodium 141(Exter nal Lab) 136 - 145 Potassium 3.5(Exter nal Lab) 3.5 - 5.1 Chloride 102(Exter nal Lab) 98 - 107 Blood Urea Nitrogen 16(Business Reporter al Lab) 7 - 18 Creatinine 0.66(Exte rnal Lab) 0.55 - 1.02 Glucose 130(EXTER NAL/ABN) 70 - 100 Calcium 9.1(Exter nal Lab) 8.5 - 10.1 Protein, Total 7.4(Exter nal Lab) 6.4 - 8.2 Albumin 4.0(Exter nal Lab) 3.4 - 5.0 Bilirubin, Total 0.34(Exte rnal Lab) 0.2 - 1.0 Alkaline Phosphatase 91(Business Reporter al Lab) 46 - 116 Aspartate Aminotransferase 14(TIME STUDY STATISTICIAN AL/ABN) 15 - 37 Alanine Aminotransferase 17(Business Reporter al Lab) 12 - 78 Blood specimen (specimen) 08/10/2016 11:20 AM EDT Historical Provider CHEMISTRY ORDERAB LES * (ABNORMAL) CBC (with Diff) (08/10/2016 11:20 AM EDT) White Blood Cell 7.00(Exter nal Lab) 4.4 - 10.8 Hemoglobin 14.9(Exter nal Lab) 12.0 - 15.5 Hematocrit 45.4(Exter nal Lab) 36.0 - 46.0 Platelet 234(Business Reporter al Lab) 130 - 400 ANC 4.13(Exter nal Lab) 1.2 - 6.7 Blood specimen (specimen) 08/10/2016 11:20 AM EDT Historical Provider HEMATOLOGY ORDERA BLES documented in this encounter Visit Diagnoses Not on filedocumented in this encounter Care Teams Authorizer Relationship Specialty Start Date End Date Aurelia Bobby MD [address] [place] [address] PCP - General 08/31/14 01/23/24 documented as of this encounter
--- OUTSIDE RECORDS SUMMARY | 2024-07-15 14:31 | XMS_ITS | Encounter Summary ---
[place] [address] Care Team Providers Care Contract Specialist Name Role Phone Aurelia Bobby MD Primary Care Provider Reason for Visit * Reason Onset Date Comments Follow-up 05/25/2015 Encounter Details Date Type Department Care Team (Late st Contact Info) Description 05/25/2015 Telephone Hematology [place] [phone] Jagdish Bajwa, RN Follow-up Social History Tobacco Use Types Packs/Day Years [...] encounter Miscellaneous Notes * Telephone Encounter - Jagdish Bajwa RN - 05/25/2015 12:24 PM EDT Placed call at Dr. Graham's request to let patient know CT scan from 05/12/15 showed no evidence ofrecurrence. Left message on home phone with request to return call to his office and ask for covering triage nurse if she has any questions. documented in this encounter Plan of Treatment Upcoming Encounters Date Type Department Care Team (Late st Contact Info) Description 09/01/2024 4:30 PM EDT Office Visit Dermatology at [facility] [address] [place] [address] Ruma Echavarria MD [facility] DR ABDIRAHMAN [place] [address] documented as of this encounter Visit Diagnoses Not on filedocumented in this encounter Care Teams Contract Specialist Relationship Specialty Start Date End Date Aurelia Bobby MD [address] [place] [address] PCP - General 08/31/14 01/23/24 documented as of this encounter
--- OUTSIDE RECORDS SUMMARY | 2024-07-15 14:31 | XMS_ITS | Encounter Summary ---
Author Organization [facility] [place] [address] Care Team Providers Care Bait Painter Name Role Phone Aurelia Bobby MD Primary Care Provider Encounter Details Date Type Department Care Team (Late st Contact Info) Description 07/21/2015 Orders Only Hematology [place] [address] Elsie Cruz APRN [facility] HEMATOLOGY[place] [address] Non-small cell lung cancer, unspecified laterality Social History Tobacco Use Types Packs/Day Years [...] [facility] [address] [place] [address] Ruma Echavarria MD [facility] DR ABDIRAHMAN [place] [address] documented as of this encounter Visit Diagnoses Diagnosis Non-small cell lung cancer, unspecified laterality documented in this encounter Care Teams Bait Painter Relationship Specialty Start Date End Date Aurelia Bobby MD [address] [place] [address] PCP - General 08/31/14 01/23/24 documented as of this encounter
--- OUTSIDE RECORDS SUMMARY | 2024-07-15 14:31 | XMS_ITS | Encounter Summary ---
Author [place] [address] Care Team Providers Care Billiard Table Assembler Name Role Phone Aurelia Bobby MD Primary Care Provider [phone] Reason for Visit * Reason Onset Date Comments Lung Cancer Patient Not Seen 09/06/2015 * Consultation (Routine) - Closed Specialty Diagnoses / Procedures Referred By Bk de leon Referred To Contact Thoracic Surgery Diagnoses Non-small cell carcinoma of left lung, stage 1 Alexandro Dickerson MD [facility] [place] [address] [facility] Thoracic Surg [address] [place] [phone] Referral ID Status Reason Start Date Expiration Date V isits Requested Visits Authorized [id number] Closed Specialty Service Requested 08/31/2015 08/30/2016 1 1 Encounter Details Date Type Department Care Team (Late st Contact Info) Description 09/06/2015 12:45 PM EDT Office [place] [address] Alexandro Dickerson MD [facility] [place] [address] Jagdish Wheeler MD [facility] [place] [address] Non-small cell carcinoma of left lung, stage 1; PATIENT NOT SEEN Social History Tobacco Use Types Packs/Day Years [...] Sign Reading Time Taken Comments Blood Pressure 139/80 09/06/2015 12:42 PM EDT Pulse 103 09/06/2015 12:42 PM EDT Temperature 37 ??C (98.6 ??F) 09/06/2015 12:42 PM EDT Respiratory Rate 18 09/06/2015 12:42 PM EDT Oxygen Saturation 98% 09/06/2015 12:42 PM EDT Inhaled Oxygen Concentration - - Weight 72.2 kg (159 lb 2.8 oz) 09/06/2015 12:42 PM EDT Height 163.5 cm (5' 4.37) 09/06/2015 12:42 PM E DT Body Mass Index 27.01 09/06/2015 12:42 PM EDT documented in this encounter Progress Notes * Jagdish Wheeler MD - 09/06/2015 1:10 PM EDT This patient was not seen in this encounter. documented in this encounter Plan of Treatment Upcoming Encounters Date Type Department Care Team (Late st Contact Info) Description 09/01/2024 4:30 PM EDT Office Visit Dermatology at [facility] [address] [place] [address] Ruma Echavarria MD [facility] [address] [place] [address] Scheduled Referrals Name Type Priority Associated Diagnoses Orde r Schedule Referral to Thoracic Surgery Outpatient Referral Routine Non-small cell carcinoma of left lung, stage 1 Ordered: 08/31/2015 documented as of this encounter Visit Diagnoses Diagnosis Non-small cell carcinoma of left lung, stage 1 PATIENT NOT SEEN documented in this encounter Care Teams Billiard Table Assembler Relationship Specialty Start Date End Date Aurelia Bobby MD [address] [place] [address] PCP - General 08/31/14 01/23/24 documented as of this encounter
--- OUTSIDE RECORDS SUMMARY | 2024-07-15 14:31 | XMS_ITS | Encounter Summary ---
[place] [address] Care Team Providers Care Pump Mechanic Name Role Phone Aurelia Bobby MD Primary Care Provider [phone] Reason for Visit * Reason Onset Date Comments Questions 03/02/2015 Encounter Details Date Type Department Care Team (Late st Contact Info) Description 03/02/2015 Telephone Hematology [place] [phone] Catherine Mejia, RN Questions Social History Tobacco Use Types Packs/Day Years Used Date Smoking Tobacco: Former Sex and Gender Information Value Date Recorded Sex Assigned at Female 06/08/2021 7:37 PM EDT Gender Identity Not on file Sexual Orientation Not on file documented as of this encounter Miscellaneous Notes * Telephone Encounter - Catherine Mejia, RN - 03/02/2015 10:48 AM EDT PATIENT PROFILE: 64 year old female presents for follow-up for stage 1B lung adenocarcinoma [id number] SARAH lobectomy on 08/09/2014. SUBJECTIVE: Calls with insurance issues and pain. She saw Dr Graham and Sondra Pollard BRIMMER BLOCKER once. Her insurance changed and she wanted to just be followed by her director of institutional research ( Jael Tripathi) in [facility]. Wonders if she should see an oncologist and her PCP. Her PCP has been prescribing oxycodone andshe is getting physical therapy for pain in her left chest wall. She takes approx. 40 oxycodone in a 30 day period. She did get pain relief after seeing the PT. She has had 2 CXR's in the past 2 months. She did not have chemotherapy. She is due to have a CT scan in April,. She gets twinges that concern her- she belongs to a support group which helps her. 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 Isaura has decided to work with her insurance to pay for a visit to Dr Graham as she wants surveillence to be done by him. Appointment will be made. documented in this encounter Plan of Treatment Upcoming Encounters Date Type Department Care Team (Late st Contact Info) Description 09/01/2024 4:30 PM EDT Office Visit Dermatology at [facility] [address] [place] [address] Ruma Echavarria MD [facility] [address] [place] [address] documented as of this encounter Visit Diagnoses Not on filedocumented in this encounter Care Teams Pump Mechanic Relationship Specialty Start Date End Date Aurelia Bobby MD [address] [place] [address] PCP - General 08/31/14 01/23/24 documented as of this encounter
--- OUTSIDE RECORDS SUMMARY | 2024-07-15 14:31 | XMS_ITS | Encounter Summary ---
Author Organization [facility] Address [facility] [place] [address] Care Team Providers Care Social Media Analyst Name Role Phone Aurelia Bobby MD Primary Care Provider [phone] Encounter Details Date Type Department Care Team (Late st Contact Info) Description 03/20/2016 8:56 AM EDT - 03/20/2016 11:59 PM EDT Hospital Encounter [place] [phone] Tres Graham MD [facility] [place] [address] Non-small cell carcinoma of left lung, stage [...] mouth 2 times daily as needed. 09/15/2015 albuterol (PROVENTIL HFA;VENTOLIN HFA;PROAIR) 90 mcg/actuation HFA [...] carcinoma of left lung, stage 1 Take 1 tablet by mouth daily. 08/22/2016 topiramate (TOPAMAX) 50 mg TabletIndications:Non-s mall cell [...] Dermatology at [facility] [address] [place] [address] Ruma Echavarria MD [facility] DR ABDIRAH[place] [address] documented as of this encounter Procedures Procedure Name Priority Date/Time Associated Diagnosis Comments REQUEST FOR 2ND READ MR HEAD Routine 03/20/2016 10:41 AM EDT Non-small cell carcinoma of left lung, stage 1 documented in this encounter Results * Request for 2nd [...] 1 documented in this encounter Care Teams Social Media Analyst Relationship Specialty Start Date End Date Aurelia Bobby MD [address] [place] [address] PCP - General 08/31/14 01/23/24 documented as of this encounter
--- OUTSIDE RECORDS SUMMARY | 2024-07-15 14:31 | XMS_ITS | Encounter Summary ---
Author Organization [facility] [place] [address] Care Team Providers Care Epic Stork Specialists Name Role Phone Aurelia Bobby MD Primary Care Provider [phone] Encounter Details Date Type Department Care Team (Late st Contact Info) Description 05/12/2015 Orders Only Hematology [place] [address] Tres Graham MD [facility] [place] [address] Social History Tobacco Use Types Packs/Day Years [...] at [facility] [address] [place] [address] Ruma Echavarria MD [facility] DR ABDIRAHMAN [place] [address] documented as of this encounter Procedures Procedure Name Priority Date/Time Associated Diagnosis Comments FILM LIBRARY STORAGE ONLY CT CHEST Routine 05/12/2015 1:50 PM EDT documented in this encounter Results * Film Library- Storage only CT Chest (05/12/2015 1:50 PM EDT) Anatomical Region Laterality Modality Chest Other 05/12/2015 1:50 PM EDT Narrative 05/13/2015 1:55 PM EDT This is a Non-reportable exam Procedure Note CYNTHIA, UNSIGNED REPORT - 05/13/2015 This is a Non-reportable exam Tres Graham MD IMG FILM LIBRARY ORDERABLES documented in this encounter Visit Diagnoses Not on filedocumented in this encounter Care Teams Epic Stork Specialists Relationship Specialty Start Date End Date Aurelia Bobby MD [address] [place] [address] [address] [facility] [address] [place] [address] PCP - General 08/31/14 01/23/24 documented as of this encounter
--- OUTSIDE RECORDS SUMMARY | 2024-07-15 14:31 | XMS_ITS | Encounter Summary ---
Author Organization [facility] Address [facility] [place] [address] Care Team Providers Care Is/It Project Manager Name Role Phone Aurelia Bobby MD Primary Care Provider [phone] Encounter Details Date Type Department Care Team (Late st Contact Info) Description 09/09/2017 - 09/09/2017 11:59 PM EDT Hospital Encounter [place] [phone] Tres Graham MD [facility] [place] [address] Pain Discharge Disposition: Home Social History Tobacco [...] at [facility] [address] [place] [address] Ruma Echavarria MD [facility] DR ABDIRAH[place] [address] documented as of this encounter Procedures Procedure Name Priority Date/Time Associated Diagnosis Comments FILM LIBRARY STORAGE ONLY CT CHEST Routine 09/09/2017 12:00 AM EDT Pain documented in this encounter Results * Film Library- Storage Only CT Chest (09/09/2017 12:00 AM EDT) Narrative [facility] - 09/10/2017 1:27 PM EDT This exam is for storage only and is auto-finalizing. Tres Graham MD IMG FILM LIBRARY ORDERABLES Performing Organization Address City/State/[facility] Co de Phone Number [place], [place] documented in this encounter Visit Diagnoses Diagnosis Pain Generalized pain documented in this encounter Care Teams Is/It Project Manager Relationship Specialty Start Date End Date Aurelia Bobby MD [address] [place] [address] [address] [facility] 1 [place] [address] PCP - General 08/31/14 01/23/24 documented as of this encounter
--- OUTSIDE RECORDS SUMMARY | 2024-07-15 14:31 | XMS_ITS | Encounter Summary ---
Author Organization [facility] [place] [address] Care Team Providers Care Wheel Molder Name Role Phone Aurelia Bobby MD Primary Care Provider [phone] Reason for Visit * Reason Comments Other Encounter Details Date Type Department Care Team ([facility] st Contact Info) Description 03/22/2016 Telephone Hematology [place] [address] Sonja Flores RN Social History Tobacco Use Types Packs/Day [...] Miscellaneous Notes * Telephone Encounter - Sonja Flores RN - 03/22/2016 10:18 AM EDT Message received from provider: Can you let pt know that we had her brain MRI read by our radiologists and there is no evidence of metastatic disease. Call placed to patient: She was made aware of the above, she has no further questions or concerns. Encouraged her to call this clinic 17/06 with questions or concerns. She stated agreement with the above plan, intends to comply, and will call if new or worsening of symptoms arise. documented in this encounter Plan of Treatment Upcoming Encounters Date Type Department Care Team (Late st Contact Info) Description 09/01/2024 4:30 PM EDT Office Visit Dermatology at [facility] [address] [place] [address] Ruma Echavarria MD [facility] DR ABDIRAHMAN [place] [address] documented as of this encounter Visit Diagnoses Not on filedocumented in this encounter Care Teams Wheel Molder Relationship Specialty Start Date End Date Aurelia Bobby MD [address] [place] [address] PCP - General 08/31/14 01/23/24 documented as of this encounter
--- OUTSIDE RECORDS SUMMARY | 2024-07-15 14:31 | XMS_ITS | Encounter Summary ---
Author Organization [facility] [place] [address] Care Team Providers Care Cement Or Concrete Finishing Supervisor Name Role Phone Aurelia Bobby MD Primary Care Provider Encounter Details Date Type Department Care Team (Late st Contact Info) Description 08/13/2016 - 08/13/2016 11:59 PM EDT Hospital Encounter [place] [phone] Tres Graham MD [facility] [place] [address] Pain Discharge Disposition: Home Social History Tobacco [...] Tablet, Chewable Four times a day 09/27/2015 03/0 02/2021 traMADol (ULTRAM) 50 mg Tablet Twice a [...] Dermatology at [facility] [address] [place] [address] [facility] DR [place] [address] documented as of this encounter Procedures Procedure Name Priority Date/Time Associated Diagnosis Comments FILM LIBRARY STORAGE ONLY CT CHEST Routine 08/13/2016 12:00 AM EDT Pain documented in this encounter Results * Film Library- Storage Only CT Chest (08/13/2016 12:00 AM EDT) Narrative [facility] 08/14/2016 7:52 PM EDT This exam is for storage only and is auto-finalizing. Tres Graham MD IMG FILM LIBRARY ORDERABLES Performing Organization Address City/State/[facility] Co de Phone Number [place], [place] documented in this encounter Visit Diagnoses Diagnosis Pain Generalized pain documented in this encounter Care Teams Cement Or Concrete Finishing Supervisor Relationship Specialty Start Date End Date Aurelia Bobby MD [address] [place] [address] PCP - General 08/31/14 01/23/24 documented as of this encounter
--- OUTSIDE RECORDS SUMMARY | 2024-07-15 14:31 | XMS_ITS | Encounter Summary ---
Author Organization [facility] [place] [address] Care Team Providers Care Information Analyst Name Role Phone Aurelia Bobby MD Primary Care Provider [phone] Encounter Details Date Type Department Care Team (Late st Contact Info) Description 01/20/2016 - 01/20/2016 11:59 PM EST Hospital Encounter [place] [phone] Dr Judy Temporary Pain Discharge Disposition: Home [...] at [facility] [address] [place] [address] Ruma Echavarria MD [facility] [address] [place] [address] documented as of this encounter Procedures Procedure Name Priority Date/Time Associated Diagnosis Comments FILM LIBRARY STORAGE ONLY MR HEAD Routine 01/20/2016 12:00 AM EST Pain documented in this encounter Results * Film Library- Storage only MR Head (01/20/2016 12:00 AM EST) Narrative [facility] - 01/24/2016 9:04 AM EST See PACS for result report. Dr [place] [facility] FILM LIBRARY ORD ERABLES [place], [place] documented in this encounter Visit Diagnoses Diagnosis Pain Generalized pain documented in this encounter Care Teams Information Analyst Relationship Specialty Start Date End Date Aurelia Bobby MD [address] [place] [address] PCP - General 08/31/14 01/23/24 documented as of this encounter
--- OUTSIDE RECORDS SUMMARY | 2024-07-15 14:31 | XMS_ITS | Encounter Summary ---
Author Organization [facility] [place] [address] Care Team Providers Care Concrete Finisher Apprentice Name Role Phone Aurelia Bobby MD Primary Care Provider [phone] Reason for Visit * Reason Comments Lung Cancer Follow-up Encounter Details Date Type Department Care Team (Late st Contact Info) Description 03/19/2017 2:15 PM EDT Office Visit [place]ematology [place] [address] Tres Graham MD [facility] [place] [address] Elsie Cruz APRN [facility] DR HEMATOLOGY[place] [address] Non-small cell carcinoma of left lung, stage [...] Sign Reading Time Taken Comments Blood Pressure 118/60 03/19/2017 2:22 PM EDT Pulse 78 03/19/2017 2:22 PM EDT Temperature 36.4 ??C (97.5 ??F) 03/19/2017 2:22 PM ED T Respiratory Rate 18 03/19/2017 2:22 PM EDT Oxygen Saturation 96% 03/19/2017 2:22 PM EDT Inhaled Oxygen Concentration - - Weight 65.6 kg (144 lb 9.6 oz) 03/19/2017 2:22 P M EDT Height 164.5 cm (5' 4.76) 03/19/2017 2:22 PM ED T copied Body Mass Index 24.24 03/19/2017 2:22 PM EDT documented in this encounter Progress Notes * Tres Graham MD - 03/19/2017 2:15 PM EDT Thoracic Oncology Follow-up Evaluation HPI: 64 year old female with stage 1B lung adenocarcinoma [id number], s/p JOHNNY lobectomy on 08/09/2014 (surgery revealed a 1.8 cm moderately differentiated adenocarcinoma. No LVI. +visceral pleura invasion. Closest margin 3.5cm. 3 hilar LNs negative, a level 5 LN negative, 10L sump node negative, level 11 LN negative, level 7 LN negative, level 9 LN negative). 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 Denies any difficulty swallowing, appetite is good. There is still moderate energy with associated mild dyspnea on exertion, occasional cough with clear sputum production, unchanged from the last visit.No hemoptysis. There has been no fevers. She reports persistent to slightly less postoperative disco mfort of the left chest. There are rare headaches. Bowel movements are regular, no bleeding, [...] children. 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 Physical Examination BP 118/60 (Patient Position: Sitting) Pulse 78 Temp 36.4 ??C (97.5 ??F) (Temporal) Resp 18 Ht 164.5 cm (5' 4.76) Comment: copied Wt 65.6 kg (144 lb 9.6 oz) SpO2 96% BMI 24.24 kg/m2 General: alert, conversant, NAD HEENT: PERRLA, EOMI, [...] for ISAURA MORGAN ( ) as of 03/19/2017 19:51 Ref. Range 03/08/2017 07:12 WBC Latest Ref Range: 4.4 - 10.8 6.13 (External Lab) Hemoglobin Latest Ref Range: 12.0 - 15.5 13.7 (External Lab) Hematocrit Latest Ref Range: 36.0 - 46.0 42.7 (External Lab) Platelets Latest Ref Range: 130 - 400 247 (External Lab) Neutr Abs (ANC) Latest Ref Range: 1.2 - 6.7 3.17 (External Lab) Sodium Latest Ref Range: 136 - 145 141 (External Lab) Potassium Latest Ref Range: 3.5 - 5.1 4.0 (External Lab) Chloride Latest Ref Range: 98 - 107 105 (External Lab) CO2 Latest Ref Range: 21 - 32 28 (External Lab) BUN Latest Ref Range: 7 - 18 16 (External Lab) Creatinine Latest Ref Range: 0.55 - 1.02 0.80 (External Lab) Glucose Fasting Latest Ref Range: 70 - 100 111 (EXTERNAL/ABN) Calcium Latest Ref Range: 8.5 - 10.1 8.6 (External Lab) Total Protein Latest Ref Range: 6.4 - 8.2 6.7 (External Lab) Albumin Latest Ref Range: 3.4 - 5.0 3.8 (External Lab) Total Bilirubin Latest Ref Range: 0.2 - 1.0 0.24 (External Lab) Alk Phos Latest Ref Range: 46 - 116 87 (External Lab) AST Latest Ref Range: 15 - 37 9 (EXTERNAL/ABN) ALT Latest Ref Range: 12 - 78 15 (External Lab) LDH Latest Ref Range: 81 - 234 103 (External Lab) Radiology: I personally reviewed a chest CT from 03/11/17 that showed no evidence for regional or distant metastatic disease. A/P: A 66-year-old patient with history of [...] emphasized the importance of routine health maintenance which she will do with the PCP. I advised her not to start smoking. The patient had numerous questions that were answered to her satisfaction. I advised to call if there are any fever, shortness of breath, new pain, weakness, bleeding or any other unusual medical symptoms. The patient will come back in 6 months for reevaluation. documented in this encounter Plan of Treatment Upcoming Encounters Date Type Department Care Team (Late st Contact Info) Description 09/01/2024 4:30 PM EDT Office Visit Dermatology at [facility] [address] [place] [address] Ruma Echavarria MD [facility] DR ABDIRAH[place] [address] documented as of this encounter Visit Diagnoses Diagnosis Non-small cell carcinoma of left lung, stage 1 documented in this encounter Care Teams Concrete Finisher Apprentice Relationship Specialty Start Date End Date Aurelia Bobby MD [address] [place] [address] PCP - General 08/31/14 01/23/24 documented as of this encounter
--- OUTSIDE RECORDS SUMMARY | 2024-07-15 14:31 | XMS_ITS | Encounter Summary ---
Author Organization [facility] [place] [address] Care Team Providers Care Supervising Film Or Videotape Editor Name Role Phone Aurelia Bobby MD Primary Care Provider [phone] Encounter Details Date Type Department Care Team (Late st Contact Info) Description 09/24/2017 External Results Hematology [place] [address] Sonja Flores RN Social History Tobacco Use [...] 4:30 PM EDT Office Visit Dermatology at [facility] [address] [place] [address] Ruma Echavarria MD [facility] [place] [address] documented as of this encounter Procedures Procedure Name Priority Date/Time Associated Diagnosis Comments CMP W/FASTING GLUCOSE Routine 09/03/2017 12:03 PM EDT LACTATE DEHYDROGENASE Routine 09/03/2017 12:03 PM EDT CBC (WITH DIFF) Routine 09/03/2017 documented in this encounter Results * (ABNORMAL) Lactate Dehydrogenase (09/03/2017 12:03 PM EDT) Lactate Dehydrogenase 122(Exter nal Lab) 81 - 234 Thyroid Stimulating Hormone 1.11(Exte rnal Lab) 0.36 - 3.74 Blood specimen (specimen) 09/03/2017 12:03 PM EDT Historical Provider CHEMISTRY ORDERAB LES * (ABNORMAL) CMP w/fasting Glucose (09/03/2017 12:03 PM EDT) Glucose Fasting 142(EXTER NAL/ABN) 70 - 100 Blood Urea Nitrogen 15(Software Validation Engineer al Lab) 7 - 18 Creatinine 0.78(Exte rnal Lab) 0.55 - 1.02 Sodium 140(Exter nal Lab) 136 - 145 Potassium 3.5(Exter nal Lab) 3.5 - 5.1 Chloride 105(Exter nal Lab) 98 - 107 Carbon Dioxide 25(Software Validation Engineer al Lab) 21 - 32 Calcium 8.6(Exter nal Lab) 8.5 - 10.1 Protein, Total 7.0(Exter nal Lab) 6.4 - 8.2 Albumin 3.8(Exter nal Lab) 3.4 - 5.0 Bilirubin, Total 0.29(Exte rnal Lab) 0.2 - 1.0 Alkaline Phosphatase 103(Exter nal Lab) 46 - 116 Aspartate Aminotransferase 13(HAND TUBE BENDER AL/ABN) 15 - 37 Alanine Aminotransferase 17(Software Validation Engineer al Lab) 12 - 78 Blood specimen (specimen) 09/03/2017 12:03 PM EDT Historical Provider CHEMISTRY ORDERAB LES * (ABNORMAL) CBC (with Diff) (09/03/2017) White Blood Cell 8.3(Software Validation Engineer al Lab) 4.4 - 10.8 Hemoglobin 14.1(Exter nal Lab) 12.0 - 15.0 Hematocrit 43.0(Exter nal Lab) 36.0 - 46.0 Platelet 259(Software Validation Engineer al Lab) 130 - 400 ANC 5.42(Exter nal Lab) 1.2 - 6.7 Blood specimen (specimen) 09/03/2017 Historical Provider HEMATOLOGY ORDERA BLES documented in this encounter Visit Diagnoses Not on filedocumented in this encounter Care Teams Supervising Film Or Videotape Editor Relationship Specialty Start Date End Date Aurelia Bobby MD [address] [place] [address] PCP - General 08/31/14 01/23/24 documented as of this encounter
--- OUTSIDE RECORDS SUMMARY | 2024-07-15 14:31 | XMS_ITS | Encounter Summary ---
Author Organization [facility] [place] [address] Care Team Providers Care Tube Dispatcher Name Role Phone Aurelia Bobby MD Primary Care Provider Reason for Visit * Reason Comments Follow-up Encounter Details Date Type Department Care Team (Late st Contact Info) Description 01/17/2016 1:15 PM EST Office Visit [place]ematology [place] [address] Tres Graham MD [facility] [place] [address] Elsie Cruz APRN [facility] DR HEMATOLOG[place] [address] Non-small cell carcinoma of left lung, stage [...] Sign Reading Time Taken Comments Blood Pressure 123/77 01/17/2016 1:12 PM EST Pulse 77 01/17/2016 1:12 PM EST Temperature 35.5 ??C (95.9 ??F) 01/17/2016 1:12 PM ES T Respiratory Rate 18 01/17/2016 1:12 PM EST Oxygen Saturation 98% 01/17/2016 1:12 PM EST Inhaled Oxygen Concentration - - Weight 67 kg (147 lb 11.3 oz) 01/17/2016 1:12 PM EST Height 163 cm (5' 4.17) 01/17/2016 1:12 PM EST Body Mass Index 25.22 01/17/2016 1:12 PM EST documented in this encounter Patient Instructions * Patient Instructions* Sonja Flores RN - 01/17/2016 1:26 PM EST Hematology Oncology Thoracic Instructions Your team members are: Santos Pearson ARNP Jessica Metz, RN, BSN, OCN THAIS Blood, clinical membership secretary The office number is: [phone], nurse available to speak with Mon- Fri., [...] Progress Notes * Tres Graham MD - 01/17/2016 1:32 PM EST Thoracic Oncology Follow-up Evaluation HPI: 64 year old female with stage 1B lung adenocarcinoma [id number], s/p JOHNNY lobectomy on 08/09/2014 (surgery revealed [...] clear sputum production, unchanged from the last visit. No hemoptysis. There has been no fevers. She reports persistent to slightly less postoperative discomfort of the left chest. There are increasing headaches, not responding to imitrex. Bowel movements are regular, no bleeding, no [...] children. 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 Physical Examination BP 123/77 mmHg Pulse 77 Temp(Src) 35.5 ??C (95.9 ??F) (Temporal) Resp 18 Ht 163 cm (5' 4.17) Wt 67 kg (147 lb 11.3 oz) BMI 25.22 kg/m2 SpO2 98% General: alert, conversant, NAD HEENT: PERRLA, EOMI, [...] for ISAURA MORGAN ( ) as of 01/18/2016 19:27 Ref. Range 12/30/2015 11:05 WBC Latest Ref Range: 4.4-10.8 6.18 (External Lab) Hemoglobin Latest Ref Range: 12.0-16.0 13.9 (External Lab) Hematocrit Latest Ref Range: 36.0-46.0 41.2 (External Lab) Platelets Latest Ref Range: 130-400 253 (External Lab) Neutr Abs (ANC) Latest Ref Range: 1.2-6.7 3.60 (External Lab) Protein S Total Latest Ref Range: 6.4-8.2 7.2 (External Lab) Sodium Latest Ref Range: 137-147 139 (External Lab) Potassium Latest Ref Range: 3.5-5.3 3.4 (EXTERNAL/ABN) Chloride Latest Ref Range: 99-108 103 (External Lab) CO2 Latest Ref Range: 22-29 25 (External Lab) BUN Latest Ref Range: 7-18 14 (External Lab) Creatinine Latest Ref Range: 0.55-1.02 0.75 (External Lab) Glucose Lvl Latest Ref Range: 70-100 130 (EXTERNAL/ABN) Calcium Latest Ref Range: 8.7-10.7 9.1 (External Lab) Albumin Latest Ref Range: 3.5-5.0 4.0 (External Lab) Total Bilirubin Latest Ref Range: 0.2-1.0 0.27 (External Lab) Alk Phos Latest Ref Range: 46-116 93 (External Lab) AST Latest Ref Range: 15-37 12 (EXTERNAL/ABN) ALT Latest Ref Range: 12-78 19 (External Lab) LDH Latest Ref Range: 80-250 118 (External Lab) Radiology: I personally reviewed a chest CT from early December 2015 that showed no evidence for regional or distant metastatic disease. A/P: A 64-year-old patient with history of resected stage IB non-small cell lung cancer who has no clinical evidence for recurrence. Her headache is of concern. While it could be multifactorial, includingpostconcussion, malignancy cannot be excluded. I recommended a brain MRI. I counseled the patient and her about [...] the aerodigestive tract. Continued regular surveillance is rec ommended. The patient and her had numerous questions that were answered to their satisfaction. I advised to call if there are any fever, shortness of breath, new pain, weakness, bleeding or any other unusual medical symptoms. We will arrange for a brain MRI later this week to be done locally at [facility], as per her request. We will call her with the results. If negatvive, the patientwill come back in 6 months for reevaluation. * Sonja Flores RN - 01/17/2016 1:17 PM EST Chief concern: Over 4-6 weeks, Headaches daily, localized to parietal and temporal lobes. Worse with bending over, coughing, sneezing, etc. Taking imetrex. Change in breathing or cough: Breathing has improved, occasional cough. Diet/swallow: eating well good appetite. New pain: denies Bowels: Denies concern Fatigue: Great energy. Medication refills: none Advanced directives: Has discussed with her and will work on these. documented in this encounter Plan of Treatment Upcoming Encounters Date Type Department Care Team (Late st Contact Info) Description 09/01/2024 4:30 PM EDT Office Visit Dermatology at [address] [address] Ruma Echavarria MD [facility] DR ABDIRAH[place] [address] documented as of this encounter Visit Diagnoses Diagnosis Non-small cell carcinoma of left lung, stage 1 documented in this encounter Care Teams Tube Dispatcher Relationship Specialty Start Date End Date Aurelia Bobby MD [address] [address] PCP - General 08/31/14 01/23/24 documented as of this encounter
--- OUTSIDE RECORDS SUMMARY | 2024-07-15 14:31 | XMS_ITS | Encounter Summary ---
[place] [address] Care Team Providers Care Professor Of Art History Name Role Phone Aurelia Bobby MD Primary Care Provider [phone] Encounter Details Date Type Department Care Team (Late st Contact Info) Description 12/02/2015 Orders Only Hematology [place] [address] Leonarda Muñoz Social History Tobacco Use Types Packs/Day Years [...] as of this encounter Progress Notes * Leonarda Muñoz - 12/02/2015 2:16 PM EST Isaura Arellano 1. Weight: 151.3 2. Mobility Concerns? no ?? If Yes, describe: 3. Does the patient have a Mediport? n 4. Is the patient coming from a skilled care facility? NO ?? If yes, the patient must be accompanied by a caregiver for the enter exam/transportation arrangements must be made in advance. documented in this encounter Plan of Treatment Upcoming Encounters Date Type Department Care Team (Late st Contact Info) Description 09/01/2024 4:30 PM EDT Office Visit Dermatology at [address] [place] [address] Ruma Echavarria MD [facility] DR ABDIRAH[place] [address] documented as of this encounter Visit Diagnoses Not on filedocumented in this encounter Care Teams Professor Of Art History Relationship Specialty Start Date End Date Aurelia Bobby MD [address] [place] [address] PCP - General 08/31/14 01/23/24 documented as of this encounter
--- OUTSIDE RECORDS SUMMARY | 2024-07-15 14:31 | XMS_ITS | Encounter Summary ---
Author Organization [facility] [place] [address] Care Team Providers Care Avian Keeper Name Role Phone Aurelia Bobby MD Primary Care Provider Encounter Details Date Type Department Care Team (Late st Contact Info) Description 03/08/2017 External Results Hematology [place] [address] Sonja Flores RN Social History Tobacco Use [...] 4:30 PM EDT Office Visit Dermatology at [facility] [address] [place] [address] Ruma Echavarria MD [facility] [address] ABDIRAHMAN [place] [address] documented as of this encounter Procedures Procedure Name Priority Date/Time Associated Diagnosis Comments CMP W/FASTING GLUCOSE Routine 03/08/2017 7:12 AM EDT CBC (WITH DIFF) Routine 03/08/2017 7:12 AM EDT documented in this encounter Results * (ABNORMAL) CMP w/fasting Glucose (03/08/2017 7:12 AM EDT) Glucose Fasting 111(EXTER NAL/ABN) 70 - 100 Blood Urea Nitrogen 16(Seam Steamer al Lab) 7 - 18 Creatinine 0.80(Exte rnal Lab) 0.55 - 1.02 Sodium 141(Exter nal Lab) 136 - 145 Potassium 4.0(Exter nal Lab) 3.5 - 5.1 Chloride 105(Exter nal Lab) 98 - 107 Carbon Dioxide 28(Seam Steamer al Lab) 21 - 32 Calcium 8.6(Exter nal Lab) 8.5 - 10.1 Protein, Total 6.7(Exter nal Lab) 6.4 - 8.2 Albumin 3.8(Exter nal Lab) 3.4 - 5.0 Bilirubin, Total 0.24(Exte rnal Lab) 0.2 - 1.0 Alkaline Phosphatase 87(Seam Steamer al Lab) 46 - 116 Aspartate Aminotransferase 9(EXTERNA L/ABN) 15 - 37 Alanine Aminotransferase 15(Seam Steamer al Lab) 12 - 78 Lactate Dehydrogenase 103(Exter nal Lab) 81 - 234 Blood specimen (specimen) 03/08/2017 7:12 AM EDT Historical Provider CHEMISTRY ORDERAB LES * (ABNORMAL) CBC (with Diff) (03/08/2017 7:12 AM EDT) White Blood Cell 6.13(Exter nal Lab) 4.4 - 10.8 Hemoglobin 13.7(Exter nal Lab) 12.0 - 15.5 Hematocrit 42.7(Exter nal Lab) 36.0 - 46.0 Platelet 247(Seam Steamer al Lab) 130 - 400 ANC 3.17(Exter nal Lab) 1.2 - 6.7 Blood specimen (specimen) 03/08/2017 7:12 AM EDT Historical Provider HEMATOLOGY ORDERA BLES documented in this encounter Visit Diagnoses Not on filedocumented in this encounter Care Teams Avian Keeper Relationship Specialty Start Date End Date Aurelia Bobby MD [address] [facility] [address] [place] [address] PCP - General 08/31/14 01/23/24 documented as of this encounter
--- OUTSIDE RECORDS SUMMARY | 2024-07-15 14:31 | XMS_ITS | Encounter Summary ---
Author Organization [facility] [place] [address] Care Team Providers Care Ship'S Captain Name Role Phone Aurelia Bobby MD Primary Care Provider [phone] Encounter Details Date Type Department Care Team (Late st Contact Info) Description 11/16/2014 7:45 AM EST - 11/16/2014 11:59 PM EST Hospital Encounter [place] [address] CLINIC, Aurelia Humphrey MD [address] [place] [address] [id number] Discharge Disposition: Home Social History Tobacco Use Types Packs/Day Years Used Date Smoking Tobacco: Former Sex and Gender Information Value Date Recorded Sex Assigned at Female 06/08/2021 7:37 PM EDT Gender Identity Not on file Sexual Orientation Not on file documented as of this encounter Medications at Time of Discharge Medication Sig Dispensed Refills Start Date End Date clonazePAM (KlonoPIN) 0.5 mg Tablet 0.5 mg as needed. 03/03/2014 2 aspirin 81 mg Tablet, Delayed Release (E.C.)Indications:Rakan ocarcinoma, lung, left,Non-small cell carcinoma of left lung, stage 1 Take 81 mg by mouth daily. Reported on 03/19/2017 01/25/2020 atorvastatin (LIPITOR) 10 mg TabletIndications:Rakan ocarcinoma, lung, left,Non-small cell carcinoma of left lung, stage 1 Take 5 mg by mouth daily. 04/01/2015 OXYCODONE HCL (OXYCODONE ORAL) Take 0-2 tablets by mouth daily as needed. 7 sertraline (ZOLOFT) 50 mg tablet Take 150 mg by mouth daily. 04/01/2015 losartan-hydrochloroth iazide (HYZAAR) 50-12.5 mg per tabletIndications:hype rtension Take 1 tablet by mouth daily. Taking 100-25mg Indications: Hypertension 04/01/2015 documented as of this encounter Plan of Treatment Upcoming Encounters Date Type Department Care Team (Late st Contact Info) Description 09/01/2024 4:30 PM EDT Office Visit Dermatology at [facility] [address] [place] [address] Ruma Echavarria MD [facility] DR ABDIRAHMAN [place] [address] documented as of this encounter Procedures Procedure Name Priority Date/Time Associated Diagnosis Comments MAMMO SCREENING CAD BILATERAL Routine 11/16/2014 8:16 AM EST documented in this encounter Results * Mammo digital bilateral Screening with CAD [...] center. Aurelia Bobby MD IMG MAMMO ORDERABLES documented in this encounter Visit Diagnoses Not on filedocumented in this encounter Care Teams Ship'S Captain Relationship Specialty Start Date End Date Aurelia Bobby MD [address] [place] [address] PCP - General 08/31/14 01/23/24 documented as of this encounter
--- OUTSIDE RECORDS SUMMARY | 2024-07-15 14:31 | XMS_ITS | Encounter Summary ---
Author Organization [facility] [place] [address] Care Team Providers Care Production Machine Computer Operator Name Role Phone Aurelia Bobby MD Primary Care Provider [phone] Encounter Details Date Type Department Care Team (Late st Contact Info) Description 01/02/2016 - 01/02/2016 11:59 PM EST Hospital Encounter [place] [address] Dr Judy Temporary Pain Discharge Disposition: Home [...] mg Tablet Twice a day 08/03/2015 01/25/2020 propranolol (INDERAL) 20 mg Tablet Take 20 [...] at [facility] [address] [place] [address] Ruma Echavarria MD [facility] DR [place]BD[place] [address] documented as of this encounter Procedures Procedure Name Priority Date/Time Associated Diagnosis Comments FILM LIBRARY STORAGE ONLY CT CHEST Routine 01/02/2016 12:00 AM EST Pain documented in this encounter Results * Film Library- Storage Only CT Chest (01/02/2016 12:00 AM EST) Narrative RAD - 01/06/2016 5:55 PM EST See PACS for result report. Dr [place] [facility] FILM LIBRARY ORD ERABLES [place], [place] documented in this encounter Visit Diagnoses Diagnosis Pain Generalized pain documented in this encounter Care Teams Production Machine Computer Operator Relationship Specialty Start Date End Date Aurelia Bobby MD [address] [place] [address] PCP - General 08/31/14 01/23/24 documented as of this encounter
--- OUTSIDE RECORDS SUMMARY | 2024-07-15 14:31 | XMS_ITS | Encounter Summary ---
Author Organization [facility] Address [facility] [place] [address] Care Team Providers Care Medical Receptionist Name Role Phone Aurelia Bobby MD Primary Care Provider [phone] Encounter Details Date Type Department Care Team (Late st Contact Info) Description 04/13/2015 2:51 PM EDT - 04/13/2015 11:59 PM EDT Hospital Encounter Hematology [place] [address] CLINIC, Tres Paige MD [facility] [place] [address] Discharge Disposition: Home Social History Tobacco Use [...] Tablet 0.5 mg as needed. 03/03/2014 2 fluticasone-salmeterol (ADVAIR DISKUS) 250-50 mcg/dose Disk with [...] 4:30 PM EDT Office Visit Dermatology at [address] [address] Ruma Echavarria MD [facility] DR ABDIRAHMAN [place] [address] documented as of this encounter Visit Diagnoses Not on filedocumented in this encounter Care Teams Medical Receptionist Relationship Specialty Start Date End Date Aurelia Bobby MD [address] [place] [address] 1 [place] [address] PCP - General 08/31/14 01/23/24 documented as of this encounter
--- OUTSIDE RECORDS SUMMARY | 2024-07-15 14:31 | XMS_ITS | Encounter Summary ---
Author Organization [facility] [place] [address] Care Team Providers Care Furniture Stainer Name Role Phone Aurelia Bobby MD Primary Care Provider [phone] Encounter Details Date Type Department Care Team (Late st Contact Info) Description 08/15/2015 Orders Only Hematology [place] [address] Tres Graham MD [facility] [place] [address] Social History Tobacco Use Types Packs/Day Years [...] at [facility] [address] [place] [address] Ruma Echavraria MD [facility] DR ABDIRAHMAN [place] [address] documented as of this encounter Procedures Procedure Name Priority Date/Time Associated Diagnosis Comments FILM LIBRARY STORAGE ONLY DX CHEST Routine 08/15/2015 12:53 PM EDT documented in this encounter Results * Film Library- Storage only DX Chest (08/15/2015 12:53 PM EDT) Anatomical Region Laterality Modality Other 08/15/2015 12:5 3 PM EDT Narrative 08/17/2015 12:58 PM EDT This is a Non-reportable exam Procedure Note CYNTHIA, UNSIGNED REPORT - 08/17/2015 This is a Non-reportable exam Tres Graham MD IMG FILM LIBRARY ORDERABLES documented in this encounter Visit Diagnoses Not on filedocumented in this encounter Care Teams Furniture Stainer Relationship Specialty Start Date End Date Aurelia Bobby MD [address] [place] [address] [address] [place] [address] PCP - General 08/31/14 01/23/24 documented as of this encounter
--- OUTSIDE RECORDS SUMMARY | 2024-07-15 14:31 | XMS_ITS | Encounter Summary ---
Author Organization [facility] [place] [address] Care Team Providers Care Irrigating Pump Operator Name Role Phone Aurelia Bobby MD Primary Care Provider [phone] Encounter Details Date Type Department Care Team (Late st Contact Info) Description 01/16/2016 External Results [place]ematology [place] [address] Sonja Flores RN Non-small cell carcinoma of left lung, stage [...] at [facility] [address] [place] [address] Ruma Echavarria MD [facility] DR ABDIRAH[place] [address] documented as of this encounter Procedures Procedure Name Priority Date/Time Associated Diagnosis Comments CBC (WITH DIFF) Routine 12/30/2015 11:05 AM EST Non-small cell carcinoma of left lung, stage 1 LACTATE DEHYDROGENASE Routine 12/30/2015 11:05 AM EST Non-small cell carcinoma of left lung, stage 1 COMPREHENSIVE METABOLIC PANEL Routine 12/30/2015 11:05 AM EST Non-small cell carcinoma of left lung, stage 1 documented in this encounter Results * (ABNORMAL) Lactate Dehydrogenase (12/30/2015 11:05 AM EST) Lactate Dehydrogenase 118(Exter nal Lab) 80 - 250 Blood specimen (specimen) 12/30/2015 11:05 AM EST Tres Graham MD CHEMISTRY ORDERA BLES * (ABNORMAL) Comprehensive metabolic panel (non-fasting) (12/30/2015 11:05 AM EST) Calcium 9.1(Exter nal Lab) 8.7 - 10.7 Glucose 130(EXTER NAL/ABN) 70 - 100 Blood Urea Nitrogen 14(Production Control Supervisor al Lab) 7 - 18 Creatinine 0.75(Exte rnal Lab) 0.55 - 1.02 Protein S Ag Total 7.2(Exter nal Lab) 6.4 - 8.2 Albumin 4.0(Exter nal Lab) 3.5 - 5.0 Bilirubin, Total 0.27(Exte rnal Lab) 0.2 - 1.0 Alkaline Phosphatase 93(Production Control Supervisor al Lab) 46 - 116 Sodium 139(Exter nal Lab) 137 - 147 Potassium 3.4(EXTER NAL/ABN) 3.5 - 5.3 Chloride 103(Exter nal Lab) 99 - 108 Carbon Dioxide 25(Production Control Supervisor al Lab) 22 - 29 Aspartate Aminotransferase 12(CLINICAL RESEARCH SCIENTIST AL/ABN) 15 - 37 Alanine Aminotransferase 19(Production Control Supervisor al Lab) 12 - 78 Blood specimen (specimen) 12/30/2015 11:05 AM EST Tres Graham MD CHEMISTRY ORDERA BLES * (ABNORMAL) CBC (with Diff) (12/30/2015 11:05 AM EST) White Blood Cell 6.18(Exter nal Lab) 4.4 - 10.8 Hemoglobin 13.9(Exter nal Lab) 12.0 - 16.0 Hematocrit 41.2(Exter nal Lab) 36.0 - 46.0 Platelet 253(Production Control Supervisor al Lab) 130 - 400 ANC 3.60(Exter nal Lab) 1.2 - 6.7 Blood specimen (specimen) 12/30/2015 11:05 AM EST Tres Graham MD HEMATOLOGY ORDER LACEY documented in this encounter Visit Diagnoses Diagnosis Non-small cell carcinoma of left lung, stage 1 documented in this encounter Care Teams Irrigating Pump Operator Relationship Specialty Start Date End Date Aurelia Bobby MD [address] [place] [address] PCP - General 08/31/14 01/23/24 documented as of this encounter
--- OUTSIDE RECORDS SUMMARY | 2024-07-15 14:31 | XMS_ITS | Encounter Summary ---
Author [facility] [place] [address] Care Team Providers Care Access Manager Name Role Phone Aurelia Bobby MD Primary Care Provider [phone] Reason for Visit * Reason Comments Other Encounter Details Date Type Department Care Team (Late st Contact Info) Description 03/15/2016 Telephone Hematology [place] [address] Sonja Flores RN Social History Tobacco Use [...] Telephone Encounter - Sonja Flores RN - 03/15/2016 4:43 PM EDT Message received from clinical dental secretary: Patient called, she is worried that the radiologist that read the MRI, she does not trust, and would like a second read on the MRI. ??Please call to discuss [phone]. Call placed to patient: She was made aware we are in process of addressing her concerns. She has nofurther questions or concerns at this time. Encouraged her to call this clinic 17/06 [...] [facility] [address] [place] [address] Ruma Echavarria MD [facility] [address] [place] [address] documented as of this encounter Visit Diagnoses Not on filedocumented in this encounter Care Teams Access Manager Relationship Specialty Start Date End Date Aurelia Bobby MD [address] [place] [address] PCP - General 08/31/14 01/23/24 documented as of this encounter
--- OUTSIDE RECORDS SUMMARY | 2024-07-15 14:31 | XMS_ITS | Encounter Summary ---
Author Organization [facility] [place] [address] Care Team Providers Care Wine Cellar Worker Name Role Phone Aurelia Bobby MD Primary Care Provider [phone] Encounter Details Date Type Department Care Team (Late st Contact Info) Description 04/01/2015 10:15 AM EDT [place] [address] Mariella Rangel MD [facility] [place] [address] Memory difficulties Discharge Disposition: Home Social History Tobacco Use [...] Sign Reading Time Taken Comments Blood Pressure 139/81 04/01/2015 10:24 AM EDT Pulse 90 04/01/2015 10:24 AM EDT Temperature - - Respiratory Rate - - Oxygen Saturation - - Inhaled Oxygen Concentration - - Weight 70.5 kg (155 lb 6.4 oz) 04/01/2015 10:24 AM EDT Height 163.8 cm (5' 4.5) 04/01/2015 10:24 AM ED T Body Mass Index 26.26 04/01/2015 10:24 AM EDT documented in this encounter Progress Notes * Mariella Rangel MD - 04/01/2015 10:51 AM EDT The patient is a 64 year old female who is seen in consultation at the request of Dr. Bobby. The patient is being evaluated for subjective cognitive decline. The patient reports a decline in episodic memory. She forgets recent conversations and their details, loses items around the home, demonstrates repetitive questioning, has difficulty following and remembering plots of books, has an increasing reliance on lists and calendars. She has lapses in concen tration and attention (loses train of thought, wanders into a room and forgets why), and believes she is more distractible. She notices that speech has become less fluent. She endorses word finding difficulty. 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 Her driving remains competent, and shedenies any moving violations, difficulty with parking, denies fender benders. Neurological ROS: She denies problems with object recognition, facial recognition, denies getting lost, difficulties with reasoning and judgment. She has a long standing history of depression. She was diagnosed with lung cancer (stage 1b) in May 2014, so this had added stress to her life. No delusions, hallucinations. There is no history of seizures or concussions. She feels her balance sucks.She's fallen three times over the past 2 years. 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 No difficulty with bowel or bladder, tremor, rigidity or stiffness, orthostasis, and syncope. Sleeps alone because of RLS and active sleeping, kicks and throws covers off (feels hot). The patient's partner does not say that she snores or acts out dreams. She has headaches off and on (has a history of migraines, but these have decreased in frequency after menopause). Denies focal or generalized weakness, denies sensory disturbances (such as numbness or paresthesias). No problems with basic or instrumental ADLs. Patient Active Problem List Diagnosis Code ??? Non-small cell carcinoma of left lung, stage 1 162.9 Hypertension Depression Attention deficit disorder Social History: Former smoker, quit 11 years ago, drinks a couple of glasses of wine nightly (notesthat she's cut back of late), occasionally uses a tincture of marijuana for back pain (thoracic back pain s/p surgery for removal of lung lesion). Family History: Her mother had Alzheimer's disease, symptom onset in her 60s. Sister is ten years older, fried her brain from drug and alcohol use. Allergies Allergen Reactions ??? Keflex [Cephalexin] Hives and itching Current Outpatient Prescriptions on File Prior to Visit Medication Sig Dispense Refill ??? aspirin 81 mg Tablet, Delayed Release (E.C.) Take 81 mg by mouth daily. ??? OXYCODONE HCL (OXYCODONE ORAL) Take 0-2 tablets by mouth daily as needed. ??? [DISCONTINUED] atorvastatin (LIPITOR) 10 mg Tablet Take 5 mg by mouth daily. No current facility-administered medications on file prior to visit. Zoloft 150mg PO QAM Adderall Clonazepam HCTZ Aspirin 81mg daily ROS: a 12 pt ROS was conducted and is negative except that mentioned in HPI Physical and neurological examination: Filed Vitals: 04/01/15 1024 BP: 139/81 Pulse: 90 General: NAD, well nourished MoCA 29/30 (-1 delayed recall, recognition intact). Skin: No rashes or scars noted Cerad word list memory showed fair to good encoding with a good learning curve (4, 6, 8 [each out of 10]), good recall at 5 minutes (6/10), and intact recognition (10/10 with 0 false positives) giving the patient a corrected score of 10. Word fluency was normal to letters (F, A, S; total 47 and categories (animals , vegetables, and fruits; total 47). [place] Making B was slightly impaired at 2 minutes with 2 errors. Psychiatry: Mood and affect are appropriate. Speech is fluent and appropriate, comprehension intact. Cranial nerves: extra-ocular movements intact, pupils equal and reactive to light, face and smile are symmetric, no dysarthria. Coordination and gait: gait is normal and steady, finger to nose intact. Normal fine motor movements. Negative romberg. Sensory: Sensory exam intact to light touch throughout Musculoskeletal: Normal power throughout all muscle groups. Reflexes: DTRs are symmetric and 1-2+ throughout. Impression and recommendations: 64 year old female who is seen in consultation at the request of Dr. Bobby. The patient is being evaluated for subjective cognitive decline. Informal office cognitive testing was generally within normal limits with mild deficits in executive function (trails B). Her encoding and recall memory were fair to good (but within normal limits), and recognition memory intact. I personally reviewed the brain MRI and it very mild ischemic small vessel disease which could contribute very modestly to the reported cognitive deficits. If any atrophy is present, it's age appropriate and minimal. I explained that the worried well can have Alzheimer's pathology years prior to the onset of true cognitive decline, and that while, clinically she does not appear to have an amnestic disorder, she does by history, and also has a family history of AD, so her risk is slightly increased. Non-pharmacologic methods of memory management and improvement were discussed extensively. We discussed the importance of external aids as memory guides (notepads, ipads, iphones for note taking), the importance of habit and routine, as well as the importance of diet, exercise and continued social/cognitive stimulation. We extensively discussed clinical trials for prodromal AD, if present (given family history). Memory guide provided. Currently, she's not interested in CSF studies or clinical trials, but will think about it all and get back to me with questions. 60 minutes were spent with the patient, and at least 31 minutes spent on supportive counseling, education on memory loss, clinical trials, and coordination of care. In terms of balance, there's no evidence for a peripheral neuropathy or myelopathy on neurological examination, no posterior column signs. Referring provider can check TSH and B12. Follow up anytime needed. documented in this encounter Plan of Treatment Upcoming Encounters Date Type Department Care Team (Late st Contact Info) Description 09/01/2024 4:30 PM EDT Office Visit Dermatology at [facility] [address] [place] [address] Ruma Echavarria MD [facility] [address] ABDIRAHMAN [place] [address] documented as of this encounter Visit Diagnoses Diagnosis Memory difficulties Memory loss documented in this encounter Care Teams Wine Cellar Worker Relationship Specialty Start Date End Date Aurelia Bobby MD [address] [place] [address] PCP - General 08/31/14 01/23/24 documented as of this encounter
--- OUTSIDE RECORDS SUMMARY | 2024-07-15 14:31 | XMS_ITS | Encounter Summary ---
Author Organization Formerly [facility] Address [facility] [place] [address] Care Team Providers Care Airborne Sensor Specialist Name Role Phone Aurelia Bobby MD Primary Care Provider [phone] Encounter Details Date Type Department Care Team (Late st Contact Info) Description 09/20/2017 - 09/20/2017 11:59 PM EDT Hospital Encounter [place] [phone] Tres Graham MD [facility] [address] Pain Discharge Disposition: Home Social History Tobacco [...] PM EDT Office Visit Dermatology at [facility] [address] [place] [address] Ruma Echavarria MD [facility] DR ABDIRAHMAN [place] [address] documented as of this encounter Procedures Procedure Name Priority Date/Time Associated Diagnosis Comments FILM LIBRARY STORAGE ONLY MR HEAD Routine 09/20/2017 12:00 AM EDT Pain documented in this encounter Results * Film Library- Storage Only MR Head (09/20/2017 12:00 AM EDT) Narrative [facility] - 09/21/2017 11:29 AM EDT This exam is for storage only and is auto-finalizing. Tres Graham MD IMG FILM LIBRARY ORDERABLES Performing Organization Address City/State/[facility] Co de Phone Number [place], [place] documented in this encounter Visit Diagnoses Diagnosis Pain Generalized pain documented in this encounter Care Teams Airborne Sensor Specialist Relationship Specialty Start Date End Date Aurelia Bobby MD [address] [place] [address] PCP - General 08/31/14 01/23/24 documented as of this encounter
--- OUTSIDE RECORDS SUMMARY | 2024-07-15 14:31 | XMS_ITS | Encounter Summary ---
[place] [address] Care Team Providers Care Jerker Name Role Phone Aurelia Bobby MD Primary Care Provider [phone] Encounter Details Date Type Department Care Team (Late st Contact Info) Description 09/18/2017 Orders Only [place] [address] Luda Schmitt Social History Tobacco Use Types [...] encounter Progress Notes * Luda Schmitt - 09/18/2017 12:16 PM EDT MRI scheduled at [facility] on Thursday 09/20 @ 11:00 AM - Left voicemail for Isaura with MRI date, time, and location. Prior approval obtained from [facility] of [place] - auth # [id number] valid from 09/18-11/16 documented in this encounter Plan of Treatment Upcoming Encounters Date Type Department Care Team (Late st Contact Info) Description 09/01/2024 4:30 PM EDT Office Visit Dermatology at [facility] [address] [place] [address] [facility] [address] ABDIRAHMAN [place] [address] documented as of this encounter Visit Diagnoses Not on filedocumented in this encounter Care Teams Jerker Relationship Specialty Start Date End Date Aurelia Bobby MD [address] [place] [address] PCP - General 08/31/14 01/23/24 documented as of this encounter
--- OUTSIDE RECORDS SUMMARY | 2024-07-15 14:31 | XMS_ITS | Encounter Summary ---
Author Organization Formerly [facility] [place] [address] Care Team Providers Care Canal Structure Operator Name Role Phone Aurelia Bobby MD Primary Care Provider [phone] Encounter Details Date Type Department Care Team (Late st Contact Info) Description 01/19/2016 Orders Only Hematology [place] [address] Tres Graham MD [facility] [place] [address] Social History Tobacco Use Types Packs/Day Years [...] encounter Progress Notes * Leonarda Muñoz - 01/19/2016 12:33 PM EST Isaura Arellano 1. Weight: 151 2. Mobility Concerns? No ?? If Yes, describe: 3. Does the patient have a Mediport? No 4. Is the patient coming from a skilled care facility? No ?? If yes, the patient must be accompanied by a caregiver for the enter exam/transportation arrangements must be made in advance. documented in this encounter Plan of Treatment Upcoming Encounters Date Type Department Care Team (Late st Contact Info) Description 09/01/2024 4:30 PM EDT Office Visit Dermatology at [facility] [address] [place] [address] Ruma Echavarria MD [facility] DR ABDIRAHMAN [place] [address] documented as of this encounter Visit Diagnoses Not on filedocumented in this encounter Care Teams Canal Structure Operator Relationship Specialty Start Date End Date Aurelia Bobby MD [address] [place] [address] PCP - General 08/31/14 01/23/24 documented as of this encounter
--- OUTSIDE RECORDS SUMMARY | 2024-07-15 14:31 | XMS_ITS | Encounter Summary ---
[place] [address] Care Team Providers Care Vp Mobile Products Name Role Phone Aurelia Bobby MD Primary Care Provider [phone] Encounter Details Date Type Department Care Team (Late st Contact Info) Description 07/12/2016 Orders Only Hematology [place] [address] Luda Schmitt Social History Tobacco Use Types [...] of this encounter Progress Notes * Luda Sorto - 07/12/2016 3:06 PM EDT Isaura Arellano 1. Weight: 150 2. Mobility Concerns? No ?? If Yes, [...] 4:30 PM EDT Office Visit Dermatology at [facility] [address] [place] [address] Ruma Echavarria MD [facility] DR ABDIRAHMAN AGUIL[place] [address] documented as of this encounter Visit Diagnoses Not on filedocumented in this encounter Care Teams Vp Mobile Products Relationship Specialty Start Date End Date Aurelia Bobby MD [address] [place] [address] PCP - General 08/31/14 01/23/24 documented as of this encounter
--- OUTSIDE RECORDS SUMMARY | 2024-07-15 14:31 | XMS_ITS | Encounter Summary ---
Author Organization Formerly [facility] [place] [address] Care Team Providers Care Water And Sewer Systems Supervisor Name Role Phone Aurelia Bobby MD Primary Care Provider [phone] Reason for Visit * Reason Onset Date Comments Other 03/02/2015 Encounter Details Date Type Department Care Team (Late st Contact Info) Description 03/02/2015 [place] [address] Saniya Covarrubias, DIRECTOR OF REGIONAL SALES [facility] DR THORACIC & [place] [address] Other Social History Tobacco Use Types Packs/Day Years Used Date Smoking Tobacco: Former Sex and Gender Information Value Date Recorded Sex Assigned at Female 06/08/2021 7:37 PM EDT Gender Identity Not on file Sexual Orientation Not on file documented as of this encounter Miscellaneous Notes * Telephone Encounter - Saniya Covarrubias MSW - 03/03/2015 8:39 AM EDT OFFICE OF CARE MANAGEMENT CONTINUING DIRECTOR TECHNICAL/CENTRAL OFFICE MAINTAINER PAGER #[phone] Referral from thoracic outsole schedulerWendy. CRISTOBAL to Isaura Arellano at home. Isaura Arellano is a 64-year old woman from [facility]. When Isaura was diagnosed and surgery was recommended there wasn't a thoracic surgeon at [facility] and she was referred to [facility] where she underwent a VATS procedure on 08/08/2015. She had one follow up visit at [facility]. She says that her care has been fragmented and she's uncertain who she should be seeing for the surveillance that was recommended. She isn't sure if she should see a provider in [facility] or in [place]. Further confusing her is the change in her employer's insurance coverage that began November 2014. The insurance has a very limited network and Isaura says that anythingout of network is not covered at all. She is allowed to seek care outside the network if the required care is not offered in network. She has ongoing pain since her surgery and is seeing PT for relief and requiring pain medication for most activities. The ongoing pain is discouraging and adds to an overall anxiety regarding her cancer diagnosis. She does not want to return to [place]. 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 She finds that her energy doesn't lastthe entire ten hours. Without regard to insurance coverage, Isaura prefers to return to [facility] for follow up. If she neededfrequent appointments she might prefer [facility], but is willing to travel otherwise. During her recuperation Isaura got two labs who are now five months old. She has also reconnected with a counselor she's seen in the past and is finding that support helpful A&P: Patient requiring follow up and concerned about her insurance coverage. We discussed that since there isn't a specialist locally, it's likely that the visit here will be covered. She plans to contact her HR department to find out about the approval process. If she needs assistance she'll let me know. Discussed with Catherine Mejia RN. documented in this encounter Plan of Treatment Upcoming Encounters Date Type Department Care Team (Late st Contact Info) Description 09/01/2024 4:30 PM EDT Office Visit Dermatology at [facility] [address] [place] [address] Ruma Echavarria MD [facility] DR ABDIRAHMAN [place] [address] documented as of this encounter Visit Diagnoses Not on filedocumented in this encounter Care Teams Water And Sewer Systems Supervisor Relationship Specialty Start Date End Date Aurelia Bobby MD [address] [place] [address] PCP - General 08/31/14 01/23/24 documented as of this encounter
--- OUTSIDE RECORDS SUMMARY | 2024-07-15 14:31 | XMS_ITS | Encounter Summary ---
Author Organization Formerly [facility] [place] [address] Care Team Providers Care District Or District Office Director Name Role Phone Aurelia Bobby MD Primary Care Provider [phone] Encounter Details Date Type Department Care Team (Late st Contact Info) Description 12/02/2015 Orders Only [place] [address] Leonarda Muñoz Social History Tobacco Use Types [...] EDT Office Visit Dermatology at [facility] [address] [place] [address] Ruma Echavarria MD [facility] DR ABDIRAH[place] [address] documented as of this encounter Visit Diagnoses Not on filedocumented in this encounter Care Teams District Or District Office Director Relationship Specialty Start Date End Date Aurelia Bobby MD [address] [place] [address] PCP - General 08/31/14 01/23/24 documented as of this encounter
--- OUTSIDE RECORDS SUMMARY | 2024-07-15 14:32 | XMS_ITS | Encounter Summary ---
Author Organization [facility] Address [address] [place] [address] Care Team Providers Care Concaver Name Role Phone Aurelia Bobby MD Primary Care Provider [phone] Encounter Details Date Type Department Care Team (Late st Contact Info) Description 08/12/2018 Results Only [facility] [phone] Elisabeth Zarate MD [address] [place] [address] [address] [place], [place] [id number] Social History Tobacco Use Types Packs/Day Years Used Date Smoking Tobacco: Never Assessed Sex and Gender Information Value Date Recorded Sex Assigned at Not on file Gender Identity Not on file Sexual Orientation Not on file documented as of this encounter Plan of Treatment Not on file documented as of this encounter Procedures Procedure Name Priority Date/Time Associated Diagnosis Comments SURGICAL PATHOLOGY Routine 08/12/2018 17 :59 EDT documented in this encounter Results * SURGICAL PATHOLOGY (08/12/2018 17:59 EDT) Pathology Report: SURGICAL PATHOLOGY REPORT Reports generated via electronic interface contain original data; however they are lacking the format of the original report. Caution should be taken when reading/interpret ing unformatted reports. Name: ? ISAURA MORGAN ? Accession #: ? [id number] ? : ? 1950 (Age: 68) ??F ? Collect Date: ? 08/12/2018 ? Location: ? [facility] ? Receive Date: ? 08/12/2018 ? Provider: ELISABETH ZARATE MD Copy to: AURELIA BOBBY MD ? Final Pathologic Diagnosis: A. ??DUODENUM, MASS, BIOPSY: - Small bowel mucosa with no specific pathologic features. - Submucosal tissue is not identified. B. ??STOMACH, ANTRUM, BIOPSY: - Gastric mucosa with no specific pathologic features. C. ??GASTROESOPHAGEA L JUNCTION, BIOPSY: - Squamous mucosa with mild reflux esophagitis. D. ??ESOPHAGUS, BIOPSY: - Squamous mucosa with no specific pathologic features. E. ??COLON, TRANSVERSE, POLYPS, BIOPSY: - Colonic mucosa with prominent lymphoid aggregate and hyperplastic surface change. - Deeper sections have been reviewed. F. ??RECTUM, POLYPS, BIOPSY: - Fragments of hyperplastic polyp(s). Document reviewed and electronically signed by: YING OLIVIER MD Report ??Date: 08/15/2018 10:22 By the signature above, the attending physician certifies that he/she has personally conducted a gross and/or microscopic examination of the described specimens and rendered or confirmed the above diagnosis. Specimen(s) Received: A. ??Duodenal mass B. ??Antrum biopsy C. ??GE junction biopsy D. ??Esophageal bx E. ??Transverse colon polyps x5 F. ??Rectal polyps x5 Clinical History: Abnormal CT scan, constipation, anorexia with weight loss, family hx of colon cancer; A. Question lipoma; B. R/O H. pylori; C. R/O Herr's; D. R/O Mily Gross Description: A. ?Received in formalin labelled with proper patient identification (initials R, E) and duodenal mass? lipoma is a single collins tissue fragment (0.3 x 0.2 x 0.1 cm). Submitted intact in A1. B. ?Received in formalin labelled with proper patient identification (initials R, E) and antrum biopsy are three collins-white tissues (0.6 x 0.1 x 0.1 cm, 0.4 x 0.3 x 0.1 cm, and 0.3 x 0.3 x 0.1 cm). Entirely submitted in B1. C. ?Received in formalin labelled with proper patient identification (initials R, E) and GE junction bx are four white tissues (0.3 x 0.2 x 0.1 cm to 0.2 x 0.1 x 0.1 cm). Entirely submitted in C1 and C2. D. ?Received in formalin labelled with proper patient identification (initials R, E) and esophageal biopsy are two white tissues (0.5 x 0.2 x 0.1 cm and 0.5 x 0.1 x 0.1 cm). Entirely submitted in D1. E. ?Received in formalin labelled with proper patient identification (initials R, E) and transverse polyps x5 are five collins-white tissues (0.3 x 0.1 x 0.1 cm to 0.2 x 0.1 x 0.1 cm). Entirely submitted in E1 and E2. F. ?Received in formalin labelled with proper patient identification (initials R, E) and rectal polyps x5 are six collins-white tissues (0.4 x 0.2 x 0.1 cm to 0.1 x 0.1 x 0.1 cm). Entirely submitted in F1 and F2. Mihrab Ali 08/13/2018 8:05 AM End of Report [facility] 08/12/2018 17:5 9 EDT 08/12/2018 17:59 EDT Elisabeth Zarate MD PATHOLOGY [facility] Organization Address City/State/ZIP Co de Phone Number [facility] [address] [place] [address] documented in this encounter Visit Diagnoses Not on filedocumented in this encounter Care Teams Concaver Relationship Specialty Start Date End Date Aurelia Bobby MD PCP - General 09/25/16 documented as of this encounter
--- OUTSIDE RECORDS SUMMARY | 2024-07-15 14:32 | XMS_ITS | Encounter Summary ---
Author Organization [facility] [place] [address] Care Team Providers Care Senior Marketing Coordinator Name Role Phone Verona Sue Primary Care Provider [phone] Encounter Details Date Type Department Care Team (Late Contact Info) Description 07/01/2014 [place] [address] Esa Stafford MD [facility] [place] [address] Lung mass (Primary Dx) Social History Tobacco Use Types [...] PM EDT Office Visit Dermatology at [facility] [address] [place] [address] Ruma Echavarria MD [facility] DR ABDIRAHMAN [place] [address] documented as of this encounter Results * Pulmonary Function Testing (07/18/2014 12:39 PM EDT) Narrative Esa Stafford MD - 07/18/2014 12:39 PM EDT Esa Stafford MD ? 07/18/2014 12:39 PM Forced vital capacity is normal. FEV1 is normal. The ratio is normal. Normal spirometry and diffusing capacity Procedure Note Esa Stafford MD - 07/18/2014 12:39 PM EDT Forced vital capacity is normal. FEV1 is normal. The ratio is normal. Normal spirometry and diffusing capacity Esa Stafford MD PFT ORDERABLES documented in this encounter Visit Diagnoses Diagnosis Lung mass- Primary Swelling, mass, or lump in chest Lung mass- Primary Swelling, mass, or lump in chest documented in this encounter Care Teams Senior Marketing Coordinator Relationship Specialty Start Date End Date Verona Sue PA PCP - General 10/17/10 08/30/14 documented as of this encounter
--- OUTSIDE RECORDS SUMMARY | 2024-07-15 14:32 | XMS_ITS | Encounter Summary ---
Author Organization [facility] Address [facility] [place] [address] Care Team Providers Care Chili Powder Mixer Name Role Phone Verona Sue Primary Care Provider [phone] Encounter Details Date Type Department Care Team (Latest Contact Info) Description 07/08/2014 7:39 AM EDT - 07/08/2014 11:59 PM EDT Hospital [place] [address] Kenney Reyes MD [facility] [place] [address] Lung mass Discharge Disposition: Home Social History Tobacco Use [...] mg Tablet 0.5 mg as needed. 03/03/2014 sertraline (ZOLOFT) 50 mg tablet Take 150 [...] Dermatology at [address] [place] [address] Ruma Echavarria MD [facility] DR ABDIRAHMAN [place] [address] documented as of this encounter Procedures Procedure Name Priority Date/Time Associated Diagnosis Comments SURGICAL PATHOLOGY REPORT Routine 07/08/2014 9:10 AM EDT PROTHROMBIN TIME STAT 07/08/2014 7:49 AM EDT Lung mass PLATELET COUNT STAT 07/08/2014 7:49 AM EDT Lung mass documented in this encounter Results * Surgical Pathology Report (07/08/2014 9:10 AM EDT) Final Diagnosis ? [facility] ? Provider: ?? XAVI COY ? Pt. Name: ?? ISAURA MORGAN ? Acc #: ?[id number] ?Pt. ? Col Date: ?? 07/08/2014 ? /Sex: ?1950,(64 years),Female ? Rec Date: ?? 07/08/2014 ? LOC: ?[facility] ? SURGICAL PATHOLOGY ? ---Pathologic Diagnosis--- ? Lung, left upper lobe, CT guided biopsy ?Small focus of invasive adenocarcinoma, itermediate grade ?with extensive fibrosis and chronic inflammation. ? 07/09/14 ? VAM ? 07/09/14 Verified by: ? Davon Bynum MD ? Pathologist ? (Electronic Signature) ? The attending pathologist whose signature appears on this report has ? reviewed all diagnostic slides and has edited the gross and/or ? microscopic portion of the report in rendering the final pathologic ? diagnosis. ? ---Gross Description--- ? A - Labeled/Fixativ e: SARAH nodule, formalin. ? Quantity/Size: Fragments, from 0.3 x 0.1 cm to 0.4 x 0.1 cm. ? Tissue Description: Cylindrical collins focally hemorrhagic cores and ? fragments. ? Sections/Proces sing: Totally submitted. (T1) ??pps ? ---Clinical Information--- ? Specimen Submitted: ? A - SARAH nodule ? path ? Clinical History: ? SARAH nodule, ? Pathology ? Clinical Diagnosis: ? CT guided SARAH nodule, ? Pathology 07/09/2014 1:10 PM EDT [facility] LUNG STRUCTURE / Unknown 07/08/2014 9:10 AM EDT 07/08/2014 9:10 AM EDT Xavi Coy MD PATHOLOGY/CYTOLOGY O RDERABLES [facility] [place] [address] * Prothrombin Time (07/08/2014 7:49 AM EDT) Prothrombin Time 12.9 12.5 - 15.5 sec [facility] Comment: [facility] Transfusion Committee Guidelines: INR less than 2.0, PTT less than OR equal to 43.5 seconds, or Fibrinogen greater than or equal to 100 mg/dl indicate adequate procoagulant activity for hemostasis in patients without underlying bleeding disorders. International Normalization Ratio 0.9 0.9 - 1.1 CERNER MILLENNIUM Blood specimen (specimen) 07/08/2014 7:49 AM EDT 07/08/2014 7:53 AM EDT Narrative Resulting Agency Comment Spec In Lab Kenney Reyes MD HEMATOLOGY ORDERAB LES CERRAQUEL SAWANTENNIUM * Platelet count (07/08/2014 7:49 AM EDT) Platelet 245 145 - 370 x10(3)/mcL CERNER MILLENNIUM Blood specimen (specimen) 07/08/2014 7:49 AM EDT 07/08/2014 7:53 AM EDT Narrative Resulting Agency Comment Spec In Lab Kenney Reyes MD HEMATOLOGY ORDERAB LES JORGE ALBERTO BRIGHT documented in this encounter Visit Diagnoses Diagnosis Lung mass Swelling, mass, or lump in chest documented in this encounter Care Teams Chili Powder Mixer Relationship Specialty Start Date End Date Verona Sue PA PCP - General 10/17/10 08/30/14 documented as of this encounter
--- OUTSIDE RECORDS SUMMARY | 2024-07-15 14:32 | XMS_ITS | Encounter Summary ---
Author Organization [facility] [place] [address] Care Team Providers Care Welding Foreman Name Role Phone Aurelia Bobby MD Primary Care Provider [phone] Reason for Visit * Reason Comments Lung Cancer Encounter Details Date Type Department Care Team (Late st Contact Info) Description 08/31/2014 3:15 PM EDT Office Visit [place] [address] Tres Whalen MD [facility] [place] [address] Non-small cell carcinoma of left lung, stage 1 (Primary Dx); Adenocarcinoma, lung, left; History of tobacco use Discharge Disposition: Home Social History Tobacco Use Types Packs/Day Years Used Date Smoking Tobacco: Former Sex and Gender Information Value Date Recorded Sex Assigned at Female 06/08/2021 7:37 PM EDT Gender Identity Not on file Sexual Orientation Not on file documented as of this encounter Last Filed Vital Signs Vital Sign Reading Time Taken Comments Blood Pressure 139/76 08/31/2014 3:21 PM EDT Pulse 93 08/31/2014 3:21 PM EDT Temperature 36.7 ??C (98.1 ??F) 08/31/2014 3:21 PM ED T Respiratory Rate 18 08/31/2014 3:21 PM EDT Oxygen Saturation 97% 08/31/2014 3:21 PM EDT Inhaled Oxygen Concentration - - Weight 70.1 kg (154 lb 8 oz) 08/31/2014 3:21 PM EDT Height 163 cm (5' 4.17) 08/31/2014 3:21 PM EDT Body Mass Index 26.38 08/31/2014 3:21 PM EDT documented in this encounter Progress Notes * Tres Whalen MD - 08/31/2014 7:09 PM EDT Attending Addendum I reviewed the case with Dr. Flores, reviewed the history, saw and examined the patient, and personally reviewed relevant lab data and radiographic images. My H&P concurs with the Fellow's. Iparticipated in medical decision making and agree with the plans as outlined. I counseled the patient about her condition and the management plan. A 64-year-old woman with resected non-small cell lung cancer, adenocarcinoma subtype, [id number] or Stage IB. The patient is recovering well from the surgery. I counseled her and her family about these results, the implications for his prognosis, as wellas the available treatment options. The patient understands and despite the successful surgery, shewill remain at risk for recurrence. She understands that she is also at risk for another primary maria de jesus or of the aerodigestive tract for which continued surveillance is recommended. I reviewed the data on the use of adjuvant systemic therapy with chemotherapy that has been shown to reduce but not eliminate the risks of recurrent lung cancer for stage II and IIIA disease. I reviewed the most common side effects of chemotherapy, including but not limited to myelosuppression with risks of life threatening infections, injection site reactions, hypersensitivity reactions, need for platelet or blood transfusions, fatigue, hair loss, nausea, vomiting, damage to the nerve endings with loss of sensation, as well as injury to the lungs, liver, heart and kidneys, the possibility of treatment related , among others.The data for stage IB is controversial, with some benefit ween for tumors larger than 4 cm. We reviewed the features that may increase the recurrence risks. There is no role for postoperative radiation. I recommended no adjuvant chemotherapy as the risks outweigh the unproven benefits. There is no role for genomic testing outside of a clinical trial. One such trial may open in the future, I will let her know. I advised her not to restart smoking, the risks were outlined, I counseled for 4 minutes. I encouraged her to call if she experienced any fevers, shortness of breath, new pain, weakness, bleeding, or any unusual medical symptoms. The patient had numerous questions thatwere answered to his satisfaction. She requested that we proceed with the proposed plan for surveillance at [facility]. She will come back in 3 months for evaluation. Her staging will be completed with a brain MRI. * Tish Flores Fabiano - 08/31/2014 9:13 AM EDT 64 year old female presents for discussion about treatment options for her recently diagnosed [id number], stage 1B lung adenocarcinoma. She received a CXR in the [facility] ED in May 2014 after presenting with rib pain after lifting her grandson. This detected a SARAH pulmonary nodule and a CT scan was recommended for further characterization. On 06/24/[address] scan revealed a 16mm spiculated SARAH mass and evidence of healed granulomatous disease in the lungs and liver, no evidence of gross regional metastases and an indeterminant left adrenal mass (benign or malignant primary vs met). She underwent biopsy of the SARAH lesion on 07/08/14 and the pathology from this was c/w a small focus of intermediate grade invasive adenocarcinoma ith extensive fibrosis and chronic inflammation. On 07/21/14 she underwent a PET scan - this was positive at the site of the known primary but negative for regional and distant metastatic disease (and described the adrenal nodule as an adrenal adenoma). On 08/09/14 she underwent a JOHNNY lobectomy sparing the lingula - this revealed a 1.8 cm moderately differentiated adenocarcinoma. No LVI. +visceral pleura invasion. Closest margin 3.5cm. 3 hilar LNs negative, a level 5 LN negative, 10L sump node negative, l evel 11 LN negative, level 7 LN negative, level 9 LN negative. This is c/w [id number], stage 1B disease. She presents today stating that she is healing well from surgery - pain is improving steadily over time. Had an episode postoperatively of left breast redness and swelling for which she took a courseof bactrim. Never had a fevers. She does have night sweats and has had for 1 year. Similar to when she had menopause symptoms. She denies weight loss (has had weight gain), headache, focal weakness, CP. She has MANN since prior to her surgery and this is worse since her surgery but she is still ableto walk and do the things she wants to do. Has had a cough for the past year - intermittent episodes of bronchitis with production of yellow green sputum, never bloody but usually dry. No nausea, vomi ting, diarrhea, constipation. 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 BP 139/76 Pulse 93 Temp 36.7 ??C (98.1 ??F) (Oral) Resp 18 Ht 163 cm (5' 4.17) Wt 70.08 kg (154 lb 8 oz) BMI 26.38 kg/m2 SpO2 97% General: alert, conversant, NAD HEENT: PERRLA, EOMI, mmm, no oropharyngeal lesions, erythema or exudates, symmetric palate raise Neck: no palpable lymphadenopathy (including axillary lymphadenopathy) CVS: regular S1S2 without MRG Chest: CTAB, no crackles or wheezes, mildly decreased breath sounds throughout, scars are healing well Abdomen: soft, NT, ND, BS+ Extremities: no edema, no calf tenderness Neuro: ambulatory, CN 2-12 grossly intact, moves all 4 extremities Skin: no visible rashes Recent Results (from the past 24 hour(s)) COMPREHENSIVE METABOLIC PANEL (NON-FASTING) Component Value Range Glucose Lvl 104 60 - 199 mg/dL BUN 15 8 - 18 mg/dL Creatinine 0.68 (*) 0.70 - 1.20 mg/dL Sodium 140 135 - 145 mmol/L Potassium 3.9 3.5 - 5.0 mmol/L Chloride 102 98 - 107 mmol/L CO2 24 22 - 31 mmol/L Anion Gap 14 5 - 15 mmol/L Calcium 9.4 8.5 - 10.5 mg/dL Total Protein 7.0 6.4 - 8.3 gm/dL Albumin 4.2 3.2 - 5.2 gm/dL AST 18 0 - 30 unit/L ALT 17 0 - 30 unit/L Alk Phos 94 40 - 104 unit/L Total Bilirubin 0.2 0.2 - 1.3 mg/dL Bili, Direct 0.1 0.0 - 0.3 mg/dL Estimated GFR >60 >=60 LACTATE DEHYDROGENASE Component Value Range LDH 153 110 - 220 unit/L HEMOGRAM Component Value Range WBC 6.6 4.0 - 10.0 x10(3)/mcL RBC 4.08 3.93 - 5.22 x10(6)/mcL Hemoglobin 12.9 11.2 - 15.7 gm/dL Hematocrit 39.0 34.0 - 45.0 % MCV 95.6 (*) 79.0 - 94.0 fL MCH 31.6 26.6 - 32.2 pg MCHC 33.1 32.0 - 36.5 gm/dL Platelets 328 145 - 370 x10(3)/mcL RDWSD 46.9 (*) 35.0 - 46.0 fL RDWCV 13.4 10.9 - 14.4 % MPV 9.0 9.0 - 12.0 fL DIFFERENTIAL, AUTOMATED Component Value Range Neutrophils % 49.0 Neutr Abs (ANC) 3.25 1.50 - 6.30 x10(3)/mcL Lymphocytes % 39.8 Lymphocytes Abs 2.6 1.0 - 3.6 x10(3)/mcL Monocytes % 8.2 Monocyte Abs 0.5 0.2 - 1.0 x10(3)/mcL Eosinophils % 2.0 Eosinophils Abs 0.1 0.0 - 0.5 x10(3)/mcL Basophils % 0.8 Basophils Abs 0.0 0.0 - 0.2 x10(3)/mcL Immature Gran % 0.20 Pavithra Gran Abs 0.01 0.00 - 0.05 x10(3)/mcL A/P: 64 year old female presents for discussion about treatment options for her recently diagnosed [id number], stage 1B lung adenocarcinoma. Today we explained that the surgery she had was with curative intent. We discussed that our recommendation is for no adjuvant chemotherapy for the following reasons. The benefit for adjuvant chemotherapy for stage 1B lung cancer has been shown retrospectively only in tumors greater than 4cm. In smal ler tumors there has been a trend toward a small benefit (perhaps on the order of 3-4% reduction inrecurrence risk extrapolated from the 5-10% benefit seen in tumors with known benefit from adjuvantchemotherapy) but this was not statistically significant. We stated that it is hard to estimate herrecurrence risk definitively because of the pleural invasion but that our best guess would be between 30-45% risk of recurrence. This risk decreases as time goes on and surveillance spaces out as time goes on. We explained that if she felt strongly about having adjuvant chemotherapy for this benefit we would honor her wishes, but we reviewed the side effects of chemotherapy including the approximately 1% chance of from side effects (usually infection). We explained that when cancer recurs, it is usually in such a way that it is no longer curable (some exceptions such as isolated low volume DEALER SALES REP recurrence). Finally we explained the her risk of developing a second primary lung cancer is1% per year. We encouraged her to continue to not smoke and explained that smoking increases these risks. She and her family asked many questions, all of which were answered and they tell us that as of now she agrees that she would not like to have chemotherapy. We encouraged her to seek a second opinion if this would help her with her decision making and we could arrange this for her if she decides that it would. Plan: -no adjuvant chemotherapy -we are happy to facilitate a referral for a second opinion to [facility] if she would like one -we will plan to see her back in [address] chest and an MRI brain documented in this encounter Miscellaneous Notes * Addendum Note - Tres Whalen MD - 08/31/2014 7:22 PM EDTAddended by: TRES WHALEN on: 08/31/2014 07:22 PM Modules accepted: Level of Service * Addendum Note - Tres Whalen MD - 08/31/2014 7:21 PM EDTAddended by: TRES WHALEN on: 08/31/2014 07:21 PM Modules accepted: Level of Service documented in this encounter Plan of Treatment Upcoming Encounters Date Type Department Care Team (Late st Contact Info) Description 09/01/2024 4:30 PM EDT Office Visit Dermatology at [facility] [address] [place] [address] Ruma Echavarria MD [facility] DR A[place] [address] documented as of this encounter Results * (ABNORMAL) Comprehensive metabolic panel (non-fasting) (11/16/2014 8:20 AM EST) [facility] Glucose 107 60 - 199 mg/dL CERNER MILLENNIUM Comment:Diabetes: >=200 mg/d L plus symptoms Blood Urea Nitrogen 15 8 - 18 mg/dL CERNER MILLENNIUM Creatinine 0.67(L) 0.70 - 1.20 mg/dL CERNER MILLENNIUM Comment: Please note that the pediatric reference intervals supplied above were not validated at [facility]. Results from pediatric patients should be interpreted in conjunction to the patient's age, height and muscle mass. Sodium 139 135 - 145 mmol/L CERNER MILLENNIUM Potassium 3.9 3.5 - 5.0 mmol/L CERNER MILLENNIUM Comment: Please note: ??Patients with WBC >100,000 may have falsely elevated Potassium levels. ??For accurate Potassium quantification in these patients send serum separator tube (gold top) for subsequent determinations. ??Contact the Clinical Chemistry Laboratory if there are any questions. Chloride 99 98 - 107 mmol/L CERNER MILLENNIUM Carbon Dioxide 28 22 - 31 mmol/L CERNER MILLENNIUM Anion Gap 12 5 - 15 mmol/L CERNER MILLENNIUM Calcium 9.5 8.5 - 10.5 mg/dL CERNER MILLENNIUM Protein, Total 7.0 6.4 - 8.3 gm/dL CERNER MILLENNIUM Albumin 4.8 3.2 - 5.2 gm/dL CERNER MILLENNIUM Aspartate Aminotransferase 19 0 - 30 unit/L CERNER MILLENNIUM Alanine Aminotransferase 15 0 - 30 unit/L CERNER MILLENNIUM Alkaline Phosphatase 83 40 - 104 unit/L CERNER MILLENNIUM Bilirubin, Total 0.3 0.2 - 1.3 mg/dL CERNER MILLENNIUM Bilirubin, [...] the following links into your internet browser. [email or web address] Blood specimen (specimen) 11/16/2014 8:20 AM EST 11/16/2014 8:26 AM EST Narrative Resulting Agency Comment Spec In Lab Tres Whalen MD CHEMISTRY ORDERA BLES JORGE ALBERTO BRIGHT documented in this encounter Visit Diagnoses Diagnosis Non-small cell carcinoma of left lung, stage 1- Primary Adenocarcinoma, lung, left History of tobacco use Personal history of tobacco use, presenting hazards to health documented in this encounter Care Teams Welding Foreman Relationship Specialty Start Date End Date Aurelia Bobby MD [address] [place] [address] PCP - General 08/31/14 01/23/24 documented as of this encounter
--- OUTSIDE RECORDS SUMMARY | 2024-07-15 14:32 | XMS_ITS | Encounter Summary ---
Author Organization [facility] [place] [address] Care Team Providers Care General Assembler Installer Name Role Phone Aurelia Bobby MD Primary Care Provider [phone] Encounter Details Date Type Department Care Team (Late st Contact Info) Description 09/03/2014 Orders Only [place] [address] Tres Graham MD [facility] [place] [address] Social History Tobacco Use Types Packs/Day Years [...] [facility] [address] [place] [address] Ruma Echavarria MD [facility] DR ABDIRAHMAN [place] [address] documented as of this encounter Procedures Procedure Name Priority Date/Time Associated Diagnosis Comments FILM LIBRARY STORAGE ONLY MR HEAD Routine 09/03/2014 8:05 AM EDT documented in this encounter Results * Film Library- Storage only MR Head (09/03/2014 8:05 AM EDT) Anatomical Region Laterality Modality Other 09/03/2014 8:05 AM EDT Narrative 09/06/2014 8:12 AM EDT This is a Non-reportable exam Procedure Note CYNTHIA, UNSIGNED REPORT - 09/06/2014 This is a Non-reportable exam Tres Graham MD IMG FILM LIBRARY ORDERABLES documented in this encounter Visit Diagnoses Not on filedocumented in this encounter Care Teams General Assembler Installer Relationship Specialty Start Date End Date Aurelia Bobby MD [address] [place] [address] PCP - General 08/31/14 01/23/24 documented as of this encounter
--- OUTSIDE RECORDS SUMMARY | 2024-07-15 14:32 | XMS_ITS | Encounter Summary ---
Author Organization [facility] [place] [address] Care Team Providers Care Armored Transport Service Manager Name Role Phone Aurelia Bobby MD Primary Care Provider [phone] Encounter Details Date Type Department Care Team (Late st Contact Info) Description 10/06/2014 Orders [place] [address] Esa Stafford MD [facility] [place] [address] Social History Tobacco Use Types Packs/Day Years [...] at [facility] [address] [place] [address] Ruma Echavarria MD [facility] DR [place]BD[place]AH[place] [address] documented as of this encounter Visit Diagnoses Not on filedocumented in this encounter Care Teams Armored Transport Service Manager Relationship Specialty Start Date End Date Aurelia Bobby MD [address] [place] [address] PCP - General 08/31/14 01/23/24 documented as of this encounter
--- OUTSIDE RECORDS SUMMARY | 2024-07-15 14:32 | XMS_ITS | Encounter Summary ---
Author Organization [facility] Address [facility] [place] [address] Care Team Providers Care Adobe Layer Helper Name Role Phone Verona Sue Primary Care Provider [phone] Encounter Details Date Type Department Care Team (Late st Contact Info) Description 08/17/2014 External [place] [address] Provider, Scanning Social History Tobacco Use Types Packs/Day Years [...] Dermatology at [facility] [address] [place] [address] Ruma Echavarria MD [facility] DR ABDIRAHMAN AGUIL[place] [address] documented as of this encounter Procedures Procedure Name Priority Date/Time Associated Diagnosis Comments SURGICAL PATHOLOGY SCAN Routine 08/17/2014 documented in this encounter Results * Scan Doc: Surgical Pathology (08/17/2014) Esa Stafford MD MEDIA MGR SCAN EXT O RDR/RSLT documented in this encounter Visit Diagnoses Not on filedocumented in this encounter Care Teams Adobe Layer Helper Relationship Specialty Start Date End Date Verona Sue PA PCP - General 10/17/10 08/30/14 documented as of this encounter
--- OUTSIDE RECORDS SUMMARY | 2024-07-15 14:32 | XMS_ITS | Encounter Summary ---
Author Organization [facility] Address [address] [place] [address] Care Team Providers Care Racing Secretary Name Role Phone Aurelia Bobby MD Primary Care Provider [phone] Encounter Details Date Type Department Care Team (Late st Contact Info) Description 10/08/2023 Lab Requisition [facility] Pathology & Laboratory Medicine - [facility] [address] [place] [address] Juanita Cortes APRN [address] [place] [address] [place] [id number] Unspecified lesions of oral mucosa Social History Tobacco Use Types Packs/Day Years Used Date Smoking Tobacco: Never Assessed Interpersonal Safety Answer Date Record ed Physically Hurt Never 06/26/2020 Verbally Threaten Not on file 06/26/2020 Sex and Gender Information Value Date Recorded Sex Assigned at Not on file Gender Identity Not on file Sexual Orientation Not on file documented as of this encounter Plan of Treatment Not on file documented as of this encounter Procedures Procedure Name Priority Date/Time Associated Diagnosis Comments SURGICAL PATHOLOGY Today 10/07/2023 14 :30 EST Unspecified lesions of oral mucosa documented in this encounter Results * SURGICAL PATHOLOGY (10/07/2023 14:30 EST) Note to Patient The following pathology results have been interpreted by your pathologist and may be available to you before your health provider has had the opportunity to review them. Please allow time for your provider to receive these results and explore management options, if applicable. 10/10/2023 15:48 EST [facility] Final Diagnosis A. 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 See comment. - Negative for dysplasia. 10/10/2023 15:48 [facility] Diagnosis Comment Deeper sections have been examined. Histologic examination of the mucosal biopsy shows squamous mucosa and focal lichenoid mucositis. Although not well developed, the findings could be consistent with lichen planus in the appropriate clinical setting. No dysplasia is identified in specimen. Dealmaker slides of this case were reviewed at the intradepartmental consultation conference. 10/10/2023 15:48 [facility] Attestation By the signature below, the attending physician certifies that they have 1) personally conducted a gross and/or microscopic examination of the described specimen(s), and/or personally interpreted the results of laboratory testing of the described specimen(s), and 2) personally rendered or confirmed the above diagnosis. 10/10/2023 15:48 [facility] at 1548 Clinical History Orally white, lacy appearances throughout, present for months, oral + vaginal sores, sensitive to spicy + acidic foods; clinical diagnosis code: K13.70 10/10/2023 15:48 [facility] Gross Description A. Received in formalin labelled with proper patient identification (initials R, E) and R oral mucosa is an irregular portion of collins mucosal tissue without obvious orientation (0.3 x 0.2 x 0.1 cm). Submitted intact in A1. Amada Dean 10/08/2023 9:19 10/10/2023 15:48 [facility] Performing Lab [facility] 10/10/2023 15:48 [facility] Scanned Images 10/10/2023 15:48 [facility] Tissue ORAL MUCOUS MEMBRANE STRUCTURE / Unknown 10/07/2023 14:30 EST 10/08/2023 7:55 EST Juanita Cortes CONTACT CENTER AGENT PATHOLOGY ORDERABLE S [facility] [address] [place] [address] documented in this encounter Visit Diagnoses Diagnosis Unspecified lesions of oral mucosa documented in this encounter Care Teams Racing Secretary Relationship Specialty Start Date End Date Aurelia Bobby MD PCP - General 09/25/16 documented as of this encounter
--- OUTSIDE RECORDS SUMMARY | 2024-07-15 14:32 | XMS_ITS | Encounter Summary ---
Author Organization [facility] [place] [address] Care Team Providers Care Intermediate Designer Name Role Phone Tamera Jensen Primary Care Provider Encounter Details Date Type Department Care Team (Late st Contact Info) Description 09/12/2009 Orders Only [place] [address] Zay Jacobo MD [facility] [place] [address] Social History Tobacco Use Types Packs/Day Years [...] at [facility] [address] [place] [address] Ruma Echavarria MD [facility] [place] [address] documented as of this encounter Procedures Procedure Name Priority Date/Time Associated Diagnosis Comments SURGICAL PATHOLOGY REPORT Routine 09/12/2009 6:25 PM EDT documented in this encounter Results * Surgical Pathology Report (09/12/2009 6:25 PM EDT) Surgical Pathology Report [id number] ? Location: 4T The signing pathologist has (i) examined the relevant preparation(s) for the specimen(s) and (ii) rendered or confirmed the diagnosis(es). . ?Pathology Surgical Pathology Final Report Clinical Information Specimen Submitted: A - 5-mm Sessile Polyp, Transverse Colon B - 25 mm Sessile Polyp, Splenic Flexure C - Multiple Sessile Polyps, Rectosigmoid Clinical History: Not provided Clinical Diagnosis: Screening Gross Description A - Labeled/Fixative : 5-mm sessile polyp transverse colon, formalin. Qty/Size/Weight: ?Single, 0.6 x 0.5 x 0.3 cm. Tissue Description: ?? Soft, pink polyp which is inked black at the ?base. Sections/Process ing: ??Trisected. ??(T1) ??vms/SNS B - Labeled/Fixative : 25-mm sessile polyp splenic flexure, formalin. Qty/Size/Weight: ?Two, 0.5 and 1.0 cm in greatest dimension. Tissue Description: ?? Soft, collins-red polypoid tissues. Sections/Process ing: ??(A1) smaller tissue, bisected; (A2) largest ?tissue, quadrisected. ??(T2) C - Labeled/Fixative : Multiple sessile polyps rectosigmoid, formalin. Qty/Size/Weight: ?Multiple, averaging 0.3 x 0.2 x 0.2 cm in ?greatest dimension. Tissue Description: ?? Soft, collins tissues. Sections/Process ing: ??(T2) ??vms/SNS Microscopic Description Slides reviewed, microscopic description not recorded. Diagnosis A - Transverse colon polyp: ? Hyperplastic polyp. B - Splenic flexure polyp: ?Mixed hyperplastic polyp/tubular adenoma. C - Rectosigmoid polyp: ?Fragments of hyperplastic polyps. . Diagnosis CR-PX 09/16/09 [facility] 09/16/09 Verified by: ? Alberto CALVO, Edward ?Pathologist ?(Electronic Signature) The attending pathologist whose signature appears on this report has reviewed all diagnostic slides and has edited the gross and/or microscopic portion of the report in rendering the final pathologic diagnosis. [facility] 09/12/2009 6:25 PM EDT Zay Jacobo MD PATHOLOGY/CYTOLOGY ORDERABLES [facility] documented in this encounter Visit Diagnoses Not on filedocumented in this encounter Care Teams Intermediate Designer Relationship Specialty Start Date End Date Tamera Jensen [address] [place] [address] PCP - General Family Medicine 01/24/24 documented as of this encounter
--- OUTSIDE RECORDS SUMMARY | 2024-07-15 14:32 | XMS_ITS | Encounter Summary ---
Author Organization [facility] [place] [address] Care Team Providers Care Flute Polisher Name Role Phone Aurelia Bobby MD Primary Care Provider [phone] Encounter Details Date Type Department Care Team (Late st Contact Info) Description 10/18/2014 Orders Only H[place] [address] Dionna Lo Social History Tobacco Use Types Packs/Day Years [...] 4:30 PM EDT Office Visit Dermatology at [facility] [address] [place] [address] Ruma Echavarria MD [facility] DR ABDIRAHMAN [place] [address] documented as of this encounter Visit Diagnoses Not on filedocumented in this encounter Care Teams Flute Polisher Relationship Specialty Start Date End Date Aurelia Bobby MD [address] [place], [place] [address] PCP - General 08/31/14 01/23/24 documented as of this encounter
--- OUTSIDE RECORDS SUMMARY | 2024-07-15 14:32 | XMS_ITS | Encounter Summary ---
Author Organization [facility] Address [address] [place] [address] Care Team Providers Care Case Manager Specialist Name Role Phone Elizabeth Arce MD Primary Care Provider Encounter Details Date Type Department Care Team (Latest Contact Info) Description 09/13/2015 7:20 EDT - 09/13/2015 23:59 EDT Hospital Encounter [address] [address] Unknown, Provider, Discharge Disposition: Home or Self Care Social History Tobacco Use Types Packs/Day Years Used Date Smoking Tobacco: Never Assessed Sex and Gender Information Value Date Recorded Sex Assigned at Not on file Gender Identity Not on file Sexual Orientation Not on file documented as of this encounter Discharge Disposition Disposition Code Departure Means Destination Home or Self Mcfp documented in this encounter Plan of Treatment Not on file documented as of this encounter Visit Diagnoses Not on filedocumented in this encounter Care Teams Case Manager Specialist Relationship Specialty Start Date End Date Elizabeth Arce MD [address] [place] [address] PCP - General 08/31/09 09/24/16 documented as of this encounter
--- OUTSIDE RECORDS SUMMARY | 2024-07-15 14:32 | XMS_ITS | Encounter Summary ---
Author Organization [facility] [place] [address] Care Team Providers Care Cooling Tower Technician Name Role Phone Verona Sue Primary Care Provider [phone] Encounter Details Date Type Department Care Team (Late Contact Info) Description 07/12/2014 Orders [place] [address] Esa Stafford MD [facility] [place] [address] Social History Tobacco Use Types Packs/Day Years [...] 4:30 PM EDT Office Visit Dermatology at [facility] [address] [place] [address] Ruma Echavarria MD [facility] DR ABDIRAH[place] [address] documented as of this encounter Visit Diagnoses Not on filedocumented in this encounter Care Teams Cooling Tower Technician Relationship Specialty Start Date End Date Verona Sue PA PCP - General 10/17/10 08/30/14 documented as of this encounter
--- OUTSIDE RECORDS SUMMARY | 2024-07-15 14:32 | XMS_ITS | Encounter Summary ---
Author Organization [facility] [place] [address] Care Team Providers Care Cafe Manager Name Role Phone Aurelia Bobby MD Primary Care Provider Encounter Details Date Type Department Care Team (Late st Contact Info) Description 09/29/2014 Ancillary Procedure [place] [address] Aurelia Bobby MD [address] [place] [address] [address] [facility] [address] [place], [place] [id number] Social History Tobacco Use Types Packs/Day Years [...] 4:30 PM EDT Office Visit Dermatology at [facility] [address] [place] [address] Ruma Echavarria MD [facility] DR ABDIRAH[place] [address] documented as of this encounter Procedures Procedure Name Priority Date/Time Associated Diagnosis Comments FILM LIBRARY STORAGE ONLY MR SPINE Routine 09/29/2014 12:00 AM EST documented in this encounter Results * Film Library- Storage Only MR Spine (09/29/2014 12:00 AM EST) Narrative [facility] NAMED [facility] - 05/22/2022 8:35 PM EDT This exam is auto-finalizing. It's purpose is for storage only. Aurelia Bobby MD IMG FILM LIBRARY ORD ERABLES Performing Organization Address City/State/[facility] Co de Phone Number [place], [place] documented in this encounter Visit Diagnoses Not on filedocumented in this encounter Care Teams Cafe Manager Relationship Specialty Start Date End Date Aurelia Bobby MD [address] [place] [address] PCP - General 08/31/14 01/23/24 documented as of this encounter
--- OUTSIDE RECORDS SUMMARY | 2024-07-15 14:32 | XMS_ITS | Encounter Summary ---
Author Organization [facility] Address [address] [place] [address] Care Team Providers Care Frameman Name Role Phone Yuly Bobby MD Primary Care Provider [phone] Encounter Details Date Type Department Care Team (Late st Contact Info) Description 10/17/2016 Results Only [facility] [phone] Artemio Priest MD [address] [place] [address] [place] [address] Social History Tobacco Use Types Packs/Day Years Used Date Smoking Tobacco: Never Assessed Sex and Gender Information Value Date Recorded Sex Assigned at Not on file Gender Identity Not on file Sexual Orientation Not on file documented as of this encounter Plan of Treatment Not on file documented as of this encounter Procedures Procedure Name Priority Date/Time Associated Diagnosis Comments SURGICAL PATHOLOGY Routine 10/17/2016 12 :03 EST documented in this encounter Results * SURGICAL PATHOLOGY (10/17/2016 12:03 EST) Pathology Report: SURGICAL PATHOLOGY REPORT Reports generated via electronic interface contain original data; however they are lacking the format of the original report. Caution should be taken when reading/interpret ing unformatted reports. Name: ? ISAURA MORGAN ? Accession #: ? [id number] ? : ? 1950 (Age: 66) ??F ? Collect Date: ? 10/17/2016 ? Location: ? [facility] ? Receive Date: ? 10/17/2016 ? Provider: ARTEMIO PRIEST MD Copy to: YULY BOBBY MD ? Final Pathologic Diagnosis: BONE AND CARTILAGE, LEFT DISTAL CLAVICLE, RESECTION: - Portions of bone and cartilage with features of degenerative joint disease. Document reviewed and electronically signed by: LI MCKEON MD Report ??Date: 10/23/2016 11:47 By the signature above, the attending physician certifies that he/she has personally conducted a gross and/or microscopic examination of the described specimens and rendered or confirmed the above diagnosis. 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 Received in formalin labelled with proper patient identification (initials R, E) and left distal clavicle is a ovoid piece of bone with a minimal amount of soft tissue attached (2.7 x 1.7 x 1.3 cm). The outer surface is collins-brown to white and roughened. Sectioning reveals firm collins trabecular bone. Adjudication Specialist sections are submitted in 1 and [address] Santos 10/19/2016 2:07 PM End of Report [facility] 10/17/2016 12:0 3 EST 10/17/2016 12:03 EST Artemio Priest MD PATHOLOGY ORDERABLE S [facility] [address] [place] [address] documented in this encounter Visit Diagnoses Not on filedocumented in this encounter Care Teams Frameman Relationship Specialty Start Date End Date Yuly Bobby MD PCP - General 09/25/16 documented as of this encounter
--- OUTSIDE RECORDS SUMMARY | 2024-07-15 14:32 | XMS_ITS | Encounter Summary ---
Author Organization [facility] [place] [address] Care Team Providers Care Armored Vehicle Officer Name Role Phone Verona Sue Primary Care Provider [phone] Encounter Details Date Type Department Care Team (Late st Contact Info) Description 10/31/2012 12:31 PM EST - 10/31/2012 11:59 PM EST Hospital En[place] [address] CL[address], DR [place]EVEN [place], Gagan, DO [address] [place] [address] Discharge Disposition: Home Social History Tobacco Use Types Packs/Day Years Used Date Smoking Tobacco: Never Assessed Sex and Gender Information Value Date Recorded Sex Assigned at Female 06/08/2021 7:37 PM EDT Gender Identity Not on file Sexual Orientation Not on file documented as of this encounter Medications at Time of Discharge Medication Sig Dispensed Refills Start Date End Date lamoTRIgine (LAMICTAL) 200 mg tablet 06/2607/06/2014 aripiprazole (ABILIFY) 15 mg tablet 07/2007/06/2014 documented as of this encounter Plan of Treatment Upcoming Encounters Date Type Department Care Team (Late st Contact Info) Description 09/01/2024 4:30 PM EDT Office Visit Dermatology at [facility] [address] [place] [address] Ruma Echavarria MD [facility] [place] [address] documented as of this encounter Procedures Procedure Name Priority Date/Time Associated Diagnosis Comments MAMMO SCREENING CAD BILATERAL Routine 10/31/2012 12:51 PM EST documented in this encounter Results * Mammo digital bilateral Screening with CAD (10/31/2012 12:51 PM EST) Anatomical Region Laterality Modality Breast Bilateral Mammography 10/31/2012 12:5 1 PM EST Narrative 11/07/2012 7:48 AM EST BILATERAL MAMMOGRAPHY ?? REASON FOR EXAM: Screening ?? TECHNIQUE: Cranio-caudal (CC) and mediolateral oblique (MLO) views of both breasts obtained with direct digital capture. The exam was evaluated by CAD Version 8.3.17. ?? FINDINGS: This is a negative mammogram (ACR Category 1). There is a stable fibroglandular pattern without significant change as compared to prior studies. There is no mammographic evidence of cancer. ? The breasts are heterogeneously dense which may limit mammographic sensitivity for the detection of malignancy. ? Reduction surgery has been performed. ? CONCLUSION ?? This is a NEGATIVE mammogram (ACR Category 1). Routine screening mammography is recommended with the frequency dependent on the patient's age and breast cancer risk factors. ?? A letter has been sent to this patient by [facility]. Procedure Note Laura Durand MD - 11/07/2012 BILATERAL MAMMOGRAPHY REASON FOR EXAM: Screening TECHNIQUE: Cranio-caudal (CC) and mediolateral oblique (MLO) views of both breasts obtained with direct digital capture. The exam was evaluated byCAD Version 8.3.17. FINDINGS: This is a negative mammogram (ACR Category 1). There is a stable fibroglandular pattern without significant change as compared to priorstudies. There is no mammographic evidence of cancer. The breasts are heterogeneously dense which may limit mammographicsensitivity for the detection of malignancy. Reduction surgery has been performed. CONCLUSION This is a NEGATIVE mammogram (ACR Category 1). Routine screeningmammography is recommended with the frequency dependent on the patient's age and breastcancer risk factors. A letter has been sent to this patient by the [facility]. Verona BROUSSARD MAMMO ORDERABLES documented in this encounter Visit Diagnoses Not on filedocumented in this encounter Care Teams Armored Vehicle Officer Relationship Specialty Start Date End Date Verona Sue PA PCP - General 10/17/10 08/30/14 documented as of this encounter
--- OUTSIDE RECORDS SUMMARY | 2024-07-15 14:32 | XMS_ITS | Encounter Summary ---
Author Organization [facility] Address [address] [place] [address] Care Team Providers Care Maternal Fetal Physician Name Role Phone Aurelia Bobby MD Primary Care Provider [phone] Encounter Details Date Type Department Care Team (Late st Contact Info) Description 11/16/2020 Lab Requisition [facility] Pathology & Laboratory Medicine - [address] [address] Outr Resulting Lab, Provider Social History Tobacco Use Types Packs/Day Years [...] Procedure Name Priority Date/Time Associated Diagnosis Comments ZZCOVID-19 TEST [facility] PCR Today 11/16/2020 9:30 EST COVID-19 TESTING Routine 11/16/2020 9:30 EST documented in this encounter Results * COVID-19 TEST [facility] PCR (11/16/2020 9:30 EST) Swab ENTIRE NASOPHARYNX / Unknown 11/16/2020 9:30 EST 11/16/2020 16:19 EST Provider Outr Resulting Lab MICROBIOLOGY - GENERAL ORDERABLES [facility] [address] [place] [address] * COVID-19 TESTING (11/16/2020 9:30 EST) COVID-19 rt-PCR Result Negative Negative 11/17/2020 18:39 EST [facility] Comment: Negative results do not preclude 2019-nCoV infection and should not be used as the sole basis for treatment or other patient management decisions. Negative results must be combined with clinical observations, patient history, and epidemiological information. This test was developed and its performance characteristics determined by [facility]. It has not been cleared or approved by the US Food and Drug Administration. FDA does not require this test to go through premarket FDA review. This test is used for clinical purposes. It should not be regarded as investigational or for research. This laboratory is certified under the Clinical Laboratory Improvement Amendments (CLIA) as qualified to perform high complexity clinical laboratory testing. This test is based on the CDC COVID-19 Emergency Use Authorization (EUA) assay, with minor modification as defined by the FDA Performed on the Telcare 7 Flex. Performing Lab [employer] 7 [facility] Lab 11/17/2020 18:39 EST [facility] Swab 11/16/2020 9:30 EST 11/16/2020 16:19 EST Provider Outr Resulting Lab MICROBIOLOGY - GENERAL ORDERABLES [facility] [address] [place] [address] documented in this encounter Visit Diagnoses Not on filedocumented in this encounter Care Teams Maternal Fetal Physician Relationship Specialty Start Date End Date Aurelia Bobby MD PCP - General 09/25/16 documented as of this encounter
--- OUTSIDE RECORDS SUMMARY | 2024-07-15 14:32 | XMS_ITS | Encounter Summary ---
Author Organization [facility] [place] [address] Care Team Providers Care Wellness Ambassador Name Role Phone Verona Sue Primary Care Provider [phone] Encounter Details Date Type Department Care Team (Latest Contact Info) Description 07/21/2014 12:38 PM EDT - 07/21/2014 11:59 PM EDT Hospital En[place] [address] Esa Stafford MD [facility] [place] [address] Lung mass Discharge Disposition: Home Social History [...] [facility] [address] [place] [address] Ruma Echavarria MD [facility] DR [place] [address] documented as of this encounter Procedures Procedure Name Priority Date/Time Associated Diagnosis Comments NM PET CT SKULL BASE TO MID-THIGH ([facility]) Routine 07/21/2014 2:08 PM EDT Lung mass POCT GLUCOSE Routine 07/21/2014 12:47 PM EDT documented in this encounter Results * PET/CT STANDARD (Skull base to Mid-thigh) (07/21/2014 2:08 PM EDT) Anatomical Region Laterality Modality Other 07/21/2014 2:08 PM EDT Narrative 07/21/2014 3:56 PM EDT Examination PET/CT STANDARD (Skull base to Mid-thigh) Technique Procedure: Following IV injection of 21-brwfya-0-deoxyglucose (FDG) and a standard uptake period, a non-contrast CT scan followed by a PET scan were acquired from the base of the skull to mid-thighs. The non-contrast CT was used for anatomic localization and photon attenuation correction of the PET scan. Blood Glucose Level (mg/dL):111 FDG Dose(mCi):10.6(0.15 mCi/kg to maximum of 18 mCi). Pre-medication: None Clinical History lung cancer / Staging prev CT scan Comparison CT of the chest July 08, 2014. Head/Neck Normal metabolic activity in the visualized portions of the head and neck. Chest 16 mm hypermetabolic nodule is present in the left upper lobe (axial image 68). No additional foci of hypermetabolic activity are identified within the chest. Multiple small calcified granulomata are seen scattered throughout the bilateral lung parenchyma, as on prior chest CT. No new or enlarging soft tissue nodules are identified. Coronary artery calcification. Abdomen/Pelvis Normal metabolic activity in the abdomen and pelvis. 3.3 cm hypodense lesion in the left adrenal gland measuring approximately 2 Hounsfield units in density, consistent with an adrenal adenoma (axial image 129). Calcified granulomata in the spleen. Skeleton/Extremities Hypermetabolic benign-appearing rib fractures in the anterior right 6th, 7th, 8th and 9th ribs. ??Otherwise normal metabolic activity in the visualized portions of the skeleton and extremities. Impression ? 1. FDG avid solitary pulmonary nodule measuring 16mm in the left upper lobe consistent with known primary lung malignancy. No evidence of regional ronnie or distant metastases. ? 2. Scattered small calcified granulomata in both lungs. ? 3. Healing rib fractures of right anterior 6th, 7th, 8th and 9th ribs. ? 4. Left adrenal adenoma. Thank you for referring this patient to the [facility] Film and interpretation reviewed by the attending Procedure Note Jose Jean MD - 07/21/2014 Examination PET/CT STANDARD (Skull base to Mid-thigh) Technique Procedure: Following IV injection of 45-vqrbar-5-deoxyglucose (FDG) and a standard uptake period, a non-contrast CT scan followed by a PET scan were acquired from the base of the skull to mid-thighs. The non-contrast CT wasused for anatomic localization and photon attenuation correction of the PETscan. Blood Glucose Level (mg/dL):111 FDG Dose(mCi):10.6(0.15 mCi/kg to maximum of 18 mCi). Pre-medication: None Clinical History lung cancer / Staging prev CT scan Comparison CT of the chest July 08, 2014. Head/Neck Normal metabolic activity in the visualized portions of the head and neck. Chest 16 mm hypermetabolic nodule is present in the left upper lobe (axial image68). No additional foci of hypermetabolic activity are identified within thechest. Multiple small calcified granulomata are seen scattered throughout the bilateral lung parenchyma, as on prior chest CT. No new or enlarging soft tissue nodules are identified. Coronary artery calcification. Abdomen/Pelvis Normal metabolic activity in the abdomen and pelvis. 3.3 cm hypodenselesion in the left adrenal gland measuring approximately 2 Hounsfield units indensity, consistent with an adrenal adenoma (axial image 129). Calcifiedgranulomata in the spleen. Skeleton/Extremities Hypermetabolic benign-appearing rib fractures in the anterior right 6th,7th, 8th and 9th ribs. Otherwise normal metabolic activity in the visualized portions of the skeleton and extremities. Impression 1. FDG avid solitary pulmonary nodule measuring 16mm in the leftupper lobe consistent with known primary lung malignancy. No evidence ofregional ronnie or distant metastases. 2. Scattered small calcified granulomata in both lungs. 3. Healing rib fractures of right anterior 6th, 7th, 8th and 9thribs. 4. Left adrenal adenoma. Thank you for referring this patient to the [facility] Film and interpretation reviewed by the attending Esa Stafford MD IMG PET ORDERABLES * POCT Glucose (07/21/2014 12:47 PM EDT) Glucose, POC 111 60 - 199 mg/dL EDNER MILLENNIUM Comment: Supplemental ranges: <140 mg/dL before meals <180 mg/dL all other times of the day Blood specimen (specimen) 07/21/2014 12:47 PM EDT 07/21/2014 12:47 PM EDT Esa Stafford MD POINT OF CARE TEST O RDERABLES [facility] documented in this encounter Visit Diagnoses Diagnosis Lung mass Swelling, mass, or lump in chest documented in this encounter Care Teams Wellness Ambassador Relationship Specialty Start Date End Date Verona Sue PA PCP - General 10/17/10 08/30/14 documented as of this encounter
--- OUTSIDE RECORDS SUMMARY | 2024-07-15 14:32 | XMS_ITS | Encounter Summary ---
Author Organization [facility] Address [address] [place] [address] Care Team Providers Care Environmental Scientists Name Role Phone Aurelia Bobby MD Primary Care Provider [phone] Encounter Details Date Type Department Care Team (Late st Contact Info) Description 05/02/2020 Lab Requisition [facility] Pathology & Laboratory Medicine - [facility] [address] [place] [address] Outr Resulting Lab, Provider Social History Tobacco [...] Procedure Name Priority Date/Time Associated Diagnosis Comments DO NOT ORDER STANDALONE - BROAD COVID TEST Today 05/02/2020 14:45 EDT COVID-19 TESTING Routine 05/02/2020 14:4 5 EDT documented in this encounter Results * DO NOT ORDER STANDALONE - BROAD COVID TEST (05/02/2020 14:45 EDT) COVID-19 rt-PCR Result NEGATIVE Negative 05/04/2020 5:36 EDT [facility] Comment: 2019-novel Coronavirus (2019-nCoV) not detected by the qRT-PCR assay. Consider testing for other respiratory viruses or re-collecting for 2019-nCoV testing. Note: Optimum timing for peak viral levels during infections caused by 2019-nCoV have not been determined. Collection of multiple specimens from the same patient may be necessary to detect the virus. Limitations Positive results are indicative of active infection with SARS-CoV-2 but do not rule out bacterial infection or co-infection with other viruses. The agent detected may not be the definite cause of disease. In addition, detection of viral RNA may not indicate the presence of infectious virus or that SARS-CoV-2 is the causative agent for clinical symptoms. Negative results do not preclude SARS-CoV-2 infection and should not be used as the sole basis for patient management decisions. Negative results must be combined with clinical observations, patient history, and epidemiological information. False negative results may also occur if amplification inhibitors are present in the specimen or if inadequate numbers of organisms are present in the specimen. Optimum specimen types and timing for peak viral levels during infections caused by SARS-CoV-2 have not been fully determined. Collection of multiple specimens (types and time points) from the same patient may be necessary to detect the virus. The test was validated for use with upper respiratory specimens obtained via nasopharyngeal or oropharyngeal swabs in VTM, UTM, M4, M5, M6, saline, and MTM media. The performance of this test has not been established for other specimens. Specimens collected using other FDA recommended Specimen Collection Materials listed in the FDA COVID-19 [employer] communication (February 18, 2020) are processed with the caveat that they were not all validated for use with this test and the result must be interpreted in this context. Furthermore, a false negative results may occur if a specimen is improperly collected, transported or handled. If the virus mutates in the RT-PCR target region, SARS-CoV-2 may not be detected or may be detected less predictably. Inhibitors or other types of interference may produce a false negative result. An interference study evaluating the effect of common cold medications was not performed. This test is not FDA-cleared but its performance characteristics were established by our CLIA-certified, CAP-accredited, high complexity laboratory in accordance with CLIA regulations, [employer] [place] [employer] (CAP) guidelines (Feb 11, 2020), and FDA guidance (Jan 23, 2020). This test is only for use under the Food and Drug Administration's Emergency Use Authorization. Swab ENTIRE NASOPHARYNX / Unknown 05/02/2020 14:45 EDT 05/02/2020 20:31 EDT Provider Outr Resulting Lab MICROBIOLOGY - GENERAL ORDERABLES [facility] [place], [place] * COVID-19 TESTING (05/02/2020 14:45 EDT) COVID-19 rt-PCR Result NEGATIVE Negative 05/04/2020 7:16 EDT [facility] Comment: 2019-novel Coronavirus (2019-nCoV) not detected by the qRT-PCR assay. Consider testing for other respiratory viruses or re-collecting for 2019-nCoV testing. Note: Optimum timing for peak viral levels during infections caused by 2019-nCoV have not been determined. Collection of multiple specimens from the same patient may be necessary to detect the virus. Limitations Positive results are indicative of active infection with SARS-CoV-2 but do not rule out bacterial infection or co-infection with other viruses. The agent detected may not be the definite cause of disease. In addition, detection of viral RNA may not indicate the presence of infectious virus or that SARS-CoV-2 is the causative agent for clinical symptoms. Negative results do not preclude SARS-CoV-2 infection and should not be used as the sole basis for patient management decisions. Negative results must be combined with clinical observations, patient history, and epidemiological information. False negative results may also occur if amplification inhibitors are present in the specimen or if inadequate numbers of organisms are present in the specimen. Optimum specimen types and timing for peak viral levels during infections caused by SARS-CoV-2 have not been fully determined. Collection of multiple specimens (types and time points) from the same patient may be necessary to detect the virus. The test was validated for use with upper respiratory specimens obtained via nasopharyngeal or oropharyngeal swabs in VTM, UTM, M4, M5, M6, saline, and MTM media. The performance of this test has not been established for other specimens. Specimens collected using other FDA recommended Specimen Collection Materials listed in the FDA COVID-19 [employer] communication (February 18, 2020) are processed with the caveat that they were not all validated for use with this test and the result must be interpreted in this context. Furthermore, a false negative results may occur if a specimen is improperly collected, transported or handled. If the virus mutates in the RT-PCR target region, SARS-CoV-2 may not be detected or may be detected less predictably. Inhibitors or other types of interference may produce a false negative result. An interference study evaluating the effect of common cold medications was not performed. This test is not FDA-cleared but its performance characteristics were established by our CLIA-certified, CAP-accredited, high complexity laboratory in accordance with CLIA regulations, [employer] [place] [employer] (CAP) guidelines (Feb 11, 2020), and FDA guidance (Jan 23, 2020). This test is only for use under the Food and Drug Administration's Emergency Use Authorization. Performing Lab [facility] 05/04/2020 7:16 EDT [facility] Swab ENTIRE NASOPHARYNX / Unknown 05/02/2020 14:45 EDT 05/02/2020 20:31 EDT Provider Outr Resulting Lab MICROBIOLOGY - GENERAL ORDERABLES [facility] [address], [place] [id number] [place] [address] LABORATORY [place], [place] documented in this encounter Visit Diagnoses Not on filedocumented in this encounter Care Teams Environmental Scientists Relationship Specialty Start Date End Date Aurelia Bobby MD PCP - General 09/25/16 documented as of this encounter
--- OUTSIDE RECORDS SUMMARY | 2024-07-15 14:32 | XMS_ITS | Referral Summary ---
Author Organization [facility] Address [address] [place] [address] Care Team Providers Care Tour Escort Name Role Phone Aurelia Bobby MD Primary Care Provider [phone] Social History Tobacco Use Types Packs/Day Years Used Date Smoking Tobacco: Never Assessed Interpersonal Safety Answer Date Record ed Physically Hurt Never 06/26/2020 Verbally Threaten Not on file 06/26/2020 Sex and Gender Information Value Date Recorded Sex Assigned at Not on file Gender Identity Not on file Sexual Orientation Not on file Plan of Treatment Not on file Care Teams Tour Escort Relationship Specialty Start Date End Date Aurelia Bobby MD PCP - General 09/25/16
--- OUTSIDE RECORDS SUMMARY | 2024-07-15 14:32 | XMS_ITS | Encounter Summary ---
Author Organization [facility] [place] [address] Care Team Providers Care Ash Pit Worker Name Role Phone Verona Sue Primary Care Provider [phone] Encounter Details Date Type Department Care Team (Late Contact Info) Description 07/12/2014 Orders [place] [address] [facility] [place] [address] Lung mass (Primary Dx) Social History Tobacco [...] EDT Office Visit Dermatology at [facility] [address] [place] [address] [facility] DR ABDIR[address] [address] documented as of this encounter Results * PET/CT STANDARD (Skull base to Mid-thigh) (07/21/2014 2:08 PM EDT) Anatomical Region Laterality Modality Other 07/21/2014 2:08 PM EDT Narrative 07/21/2014 3:56 PM EDT Examination PET/CT STANDARD (Skull base to Mid-thigh) Technique Procedure: Following IV injection of 37-lgkpcs-0-deoxyglucose (FDG) and a standard uptake period, a [...] you for referring this patient to the [facility] PET [facility] Film and interpretation reviewed by the attending Procedure Note Jose Jean MD - 08/27/2014 Examination PET/CT STANDARD (Skull base to Mid-thigh) Technique Procedure: Following IV injection of 07-hxyoyo-3-deoxyglucose (FDG) and a standard uptake period, a [...] you for referring this patient to the [facility] PET Center Film and interpretation reviewed by the attending Esa Stafford MD IMG PET ORDERABLES documented in this encounter Visit Diagnoses Diagnosis Lung mass- Primary Swelling, mass, or lump in chest Lung mass Swelling, mass, or lump in chest documented in this encounter Care Teams Ash Pit Worker Relationship Specialty Start Date End Date Verona Sue PA PCP - General 10/17/10 08/30/14 documented as of this encounter
--- OUTSIDE RECORDS SUMMARY | 2024-07-15 14:32 | XMS_ITS | Encounter Summary ---
Author Organization [facility] [place] [address] Care Team Providers Care Trimmer Machine Operator Name Role Phone Verona Sue Primary Care Provider [phone] Reason for Referral * Consultation (Routine) - Closed Specialty Diagnoses / Procedures Referred By Contmj de leon Referred To Contact Hematology and Oncology Diagnoses Lung cancer, unspecified laterality Esa Stafford MD [facility] [place] [address] [facility] [address] [place] [phone] Referral ID Status Reason Start Date Expiration Date V isits Requested Visits Authorized [id number] Closed Consult, Test & Treat 08/25/2014 02/21/2015 1 1 Encounter Details Date Type Department Care Team (Late st Contact Info) Description 08/25/2014 Orders [place] [address] Eas Stafford MD [facility] [place] [address] Lung cancer, unspecified laterality (Primary Dx) Social History Tobacco Use Types [...] EDT Office Visit Dermatology at [facility] [address] [place] [address] Ruma Echavarria MD [facility] DR ABDIRAHMAN [place] [address] Scheduled Referrals Name Type Priority Associated Diagnoses Orde r Schedule Referral to Hematology and Oncology Outpatient Referral Routine Lung cancer, unspecified laterality Ordered: 08/25/2014 documented as of this encounter Visit Diagnoses Diagnosis Lung cancer, unspecified laterality- Primary documented in this encounter Care Teams Trimmer Machine Operator Relationship Specialty Start Date End Date Verona Sue PA PCP - General 10/17/10 08/30/14 documented as of this encounter
--- OUTSIDE RECORDS SUMMARY | 2024-07-15 14:32 | XMS_ITS | Encounter Summary ---
Author Organization [facility] Address [facility] [place] [address] Care Team Providers Care Pillow Filler Name Role Phone Aurelia Bobby MD Primary Care Provider [phone] Encounter Details Date Type Department Care Team (Late st Contact Info) Description 08/31/2014 2:18 PM EDT - 08/31/2014 11:59 PM EDT Hospital Encounter Hematology [place] [id number] CLINIC, Tres Paige MD [facility] [place] [address] Malignant neoplasm of bronchus and lung, unspecified site Discharge Disposition: Home Social History Tobacco Use [...] Tablet 0.5 mg as needed. 03/03/2014 2 ibuprofen (ADVIL;MOTRIN) 600 mg Tablet Take 600 mg by mouth every 6 hours as needed. 11/16/2014 OXYCODONE HCL (OXYCODONE ORAL) Take 0-2 tablets [...] 4:30 PM EDT Office Visit Dermatology at [facility] [address] [place] [address] Ruma Echavarria MD [facility] [place] [address] documented as of this encounter Procedures Procedure Name Priority Date/Time Associated Diagnosis Comments HEMOGRAM STAT 08/31/2014 2:24 PM EDT Malignant neoplasm of bronchus and lung, unspecified site DIFFERENTIAL, AUTOMATED STAT 08/31/2014 2:24 PM EDT Malignant neoplasm of bronchus and lung, unspecified site CBC (WITH DIFF) STAT 08/31/2014 2:24 PM EDT Malignant neoplasm of bronchus and lung, unspecified site LACTATE DEHYDROGENASE STAT 08/31/2014 2:24 PM EDT Malignant neoplasm of bronchus and lung, unspecified site COMPREHENSIVE METABOLIC PANEL STAT 08/31/2014 2:24 PM EDT Malignant neoplasm of bronchus and lung, unspecified site documented in this encounter Results * Differential, Automated (08/31/2014 2:24 PM EDT) Neutrophil % 49.0 % CERNER MILLENNIUM Neutrophil Absolute 3.25 1.50 - 6.30 x10(3)/mcL CERNER MILLENNIUM Lymph % 39.8 % CERNER MILLENNIUM Lymphocytes Abs 2.6 1.0 - 3.6 x10(3)/mcL CERNER MILLENNIUM Monocyte % 8.2 % CERNER MILLENNIUM Monocyte Abs 0.5 0.2 - 1.0 x10(3)/mcL CERNER MILLENNIUM Eos % 2.0 % CERNER MILLENNIUM Eosinophils Abs 0.1 0.0 - 0.5 x10(3)/mcL CERNER MILLENNIUM Basophil % 0.8 % CERNER MILLENNIUM Baso Absolute 0.0 0.0 - 0.2 x10(3)/mcL CERNER MILLENNIUM Immature Gran % 0.20 % CERN ER MILLENNIUM Comment: Immature granulocytes(IG's)percentage and absolute count will include metamyelocytes, myelocytes, and promyelocytes. Blood smears from CBCs yielding IG's will be scanned manually for concordance. If this scan disagrees with the automated IG or if promyelocytes are noted, a manual differential will be performed. Immature Gran Absolute 0.01 0.00 - 0.05 x10(3)/mcL CERNER MILLENNIUM Blood specimen (specimen) 08/31/2014 2:24 PM EDT 08/31/2014 2:27 PM EDT Narrative Resulting Agency Comment Spec In Lab Tres Graham MD HEMATOLOGY ORDER LACEY CERNER MILLENNIUM * (ABNORMAL) Hemogram (08/31/2014 2:24 PM EDT) White Blood Cell 6.6 4.0 - 10.0 x10(3)/mc L CERNER MILLENNIUM Red Blood Cell 4.08 3.93 - 5.22 x10(6)/mc L CERNER MILLENNIUM Hemoglobin 12.9 11.2 - 15.7 gm/dL CERNER MILLENNIUM Hematocrit 39.0 34.0 - 45.0 % CERNER MILLENNIUM Mean Cell Volume 95.6(H) 79.0 - 94.0 fL CERNER MILLENNIUM Mean Cell Hemoglobin 31.6 26.6 - 32.2 pg CERNER MILLENNIUM Mean Cell Hemoglobin Concentration 33.1 32.0 - 36.5 gm/dL CERNER MILLENNIUM Platelet 328 145 - 370 x10(3)/mc L CERNER MILLENNIUM RDW Standard Deviation 46.9(H) 35.0 - 46.0 fL CERNER MILLENNIUM RDW coefficient of variation 13.4 10.9 - 14.4 % CERNER MILLENNIUM Mean Platelet Volume 9.0 9.0 - 12.0 fL CERNER MILLENNIUM Blood specimen (specimen) 08/31/2014 2:24 PM EDT 08/31/2014 2:27 PM EDT Narrative Resulting Agency Comment Spec In Lab Tres Graham MD HEMATOLOGY ORDER LACEY Performing Organization Address City/[facility]/ZIP Co de Phone Number CERNER MILLENNIUM * Lactate Dehydrogenase (08/31/2014 2:24 PM EDT) Lactate Dehydrogenase 153 110 - 220 unit/L CERNER MILLENNIUM Blood specimen (specimen) 08/31/2014 2:24 PM EDT 08/31/2014 2:27 PM EDT Narrative Resulting Agency Comment Spec In Lab Tres Graham MD CHEMISTRY ORDERA BLES Performing Organization Address [facility] de Phone Number CERNER MILLENNIUM * (ABNORMAL) Comprehensive metabolic panel (non-fasting) (08/31/2014 2:24 PM EDT) Glucose 104 60 - 199 mg/dL CERNER MILLENNIUM Comment:Diabetes: >=200 mg/d L plus symptoms Blood Urea Nitrogen 15 8 - 18 mg/dL CERNER MILLENNIUM Creatinine 0.68(L) 0.70 - 1.20 mg/dL CERNER MILLENNIUM Comment: Please note that the pediatric reference intervals supplied above were not validated at [facility]. Results from pediatric patients should be interpreted in conjunction to the patient's age, height and muscle mass. Sodium 140 135 - 145 mmol/L CERNER MILLENNIUM Potassium 3.9 3.5 - 5.0 mmol/L CERNER MILLENNIUM Comment: Please note: ??Patients with WBC >100,000 may have falsely elevated Potassium levels. ??For accurate Potassium quantification in these patients send serum separator tube (gold top) for subsequent determinations. ??Contact the Clinical Chemistry Laboratory if there are any questions. Chloride 102 98 - 107 mmol/L CERNER MILLENNIUM Carbon Dioxide 24 22 - 31 mmol/L CERNER MILLENNIUM Anion Gap 14 5 - 15 mmol/L CERNER MILLENNIUM Calcium 9.4 8.5 - 10.5 mg/dL CERNER MILLENNIUM Protein, Total 7.0 6.4 - 8.3 gm/dL CERNER MILLENNIUM Albumin 4.2 3.2 - 5.2 gm/dL CERNER MILLENNIUM Aspartate Aminotransferase 18 0 - 30 unit/L CERNER MILLENNIUM Alanine Aminotransferase 17 0 - 30 unit/L CERNER MILLENNIUM Alkaline Phosphatase 94 40 - 104 unit/L CERNER MILLENNIUM Bilirubin, Total 0.2 0.2 - 1.3 mg/dL CERNER MILLENNIUM Bilirubin, [...] the following links into your internet browser. [email or web address] [email or web address] [email or web address] [email or web address] Blood specimen (specimen) 08/31/2014 2:24 PM EDT 08/31/2014 2:27 PM EDT Narrative Resulting Agency Comment Spec In Lab Tres Graham MD CHEMISTRY ORDERA BLES JORGE ALBERTO PONCEIUM documented in this encounter Visit Diagnoses Diagnosis Malignant neoplasm of bronchus and lung, unspecified site documented in this encounter Care Teams Pillow Filler Relationship Specialty Start Date End Date Aurelia Bobby MD [address] [place] [address] PCP - General 08/31/14 01/23/24 documented as of this encounter
--- OUTSIDE RECORDS SUMMARY | 2024-07-15 14:32 | XMS_ITS | Encounter Summary ---
Author Organization [facility] [place] [address] Care Team Providers Care Assistant Construction Superintendent Name Role Phone AashishJulianoTamera Primary Care Provider Encounter Details Date Type Department Care Team (Late st Contact Info) Description 09/18/2004 Orders Only Dermatology at [address] [address] Milo El MD [address] [place] [address], [facility] [place] [address] Social History Tobacco Use Types Packs/Day Years [...] 4:30 PM EDT Office Visit Dermatology at [facility] [address] [place] [address] Ruma Echavarria MD [facility] DR [address] [address] documented as of this encounter Procedures Procedure Name Priority Date/Time Associated Diagnosis Comments SURGICAL PATHOLOGY REPORT Routine 09/18/2004 8:07 PM EDT documented in this encounter Results * Surgical Pathology Report (09/18/2004 8:07 PM EDT) Surgical Pathology Report [id number] ? Location: The signing pathologist has (i) examined the relevant preparation(s) for the specimen(s) and (ii) rendered or confirmed the diagnosis(es). . ?Pathology Surgical Pathology Final Report Clinical Information Specimen Submitted: A - (R) Dorsal foot, shave Clinical History: Since early July, recurrent itching/ blistering of localized patch; ? Arthropod bite reaction vs ?. Gross Description Labeled/Fixativ e: ? Labeled with the patient's name, formalin. Qty/Size/Weight : ?Single shave, 1.5 x 0.7 cm, pearlescent, nodular, ?yellow-collins skin. Sections/Proces sing: ??The specimen is serially sectioned. ??(T1) tbb/EJR Microscopic Description Slides reviewed, microscopic description not recorded. Diagnosis Right dorsal foot, shave biopsy: ??Interface reaction with marked papillary dermal edema and lymphocyte-pred ominant inflammation (see Comment). CR-0 09/20/04 SHARON 09/20/04 Verified by: ? Artemio Fontenot MD ?Dermatopathol ogist ?(Electronic Signature) The attending pathologist whose signature appears on this report has reviewed all diagnostic slides and has edited the gross and/or microscopic portion of the report in rendering the final pathologic diagnosis. Comment This specimen could represent a fixed drug reaction. ??Dr. Coleman concurs. ??Only rare eosinophils are identified, which argues against a bite reaction. JORGE ALBERTO BRIGHT 09/18/2004 8:07 PM EDT Milo El MD PATHOLOGY/CYTOLOGY O RDERABLES JORGE ALBERTO BRIGHT documented in this encounter Visit Diagnoses Not on filedocumented in this encounter Care Teams Assistant Construction Superintendent Relationship Specialty Start Date End Date Tamera Jensen [address] [place] [address] PCP - General Family Medicine 01/24/24 documented as of this encounter
--- OUTSIDE RECORDS SUMMARY | 2024-07-15 14:32 | XMS_ITS | Encounter Summary ---
Author Organization [facility] [place] [address] Care Team Providers Care Natural Gas Trader Name Role Phone Aurelia Bobby MD Primary Care Provider [phone] Reason for Visit * Reason Comments Follow-up Encounter Details Date Type Department Care Team (Late st Contact Info) Description 11/16/2014 12:15 PM EST Follow-Up Hematology [place] [address] Tres Graham MD [facility] [place] [address] Adenocarcinoma, lung, left; Non-small cell carcinoma of [...] Sign Reading Time Taken Comments Blood Pressure 132/73 11/16/2014 11:54 AM EST Pulse 92 11/16/2014 11:54 AM EST Temperature 36.6 ??C (97.9 ??F) 11/16/2014 11:[address] Respiratory Rate 18 11/16/2014 11:54 AM EST Oxygen Saturation 98% 11/16/2014 11:54 AM EST Inhaled Oxygen Concentration - - Weight 74.4 kg (164 lb 0.4 oz) 11/16/2014 11:54 AM EST Height 163.6 cm (5' 4.41) 11/16/2014 11:[address] Body Mass Index 27.8 11/16/2014 11:54 AM EST documented in this encounter Patient Instructions * Patient Instructions* Catherine Mejia RN - 11/16/2014 12:00 PM EST Hematology Oncology Thoracic Instructions Your team members are: Dr Tres Aguiar ,clinical medical secretary Dionna Lo, clinical medical secretary The office number is: [phone], nurse available to speak with Mon- Fri., [...] documented in this encounter Progress Notes * Cristina Henson APRN - 11/16/2014 12:34 PM EST Thoracic Oncology Follow-up Evaluation HPI: 64 year old female with stage 1B lung adenocarcinoma [id number], s/p JOHNNY lobectomy on 08/09/2014 (surgery revealed a 1.8 cm moderately differentiated adenocarcinoma. No LVI. +visceral pleura invasion. Closest margin 3.5cm. 3 hilar LNs negative, a level 5 LN negative, 10L sump node negative, level 11 LN negative, level 7 LN negative, level 9 LN negative). She presents today stating that she is extremely tired - she has returned to work approx 12 hours/week. She reports she is feeling depressed and anxious - she states she never dealt with the emotional side of the diagnosis and has been so focused on the physical component. Pt has started a pilates course to help with fatigue and left flank adhesions. Denies fevers or infectious symptoms. Appetitefair - weight stable. She experiences MANN when walking up hills but sees an improvement in her dyspnea. Bowels regular. No difficult with urination. Denies pain. Pt states she plans to make an appt with a counselor to discuss feelings of depression and anxiety. Also, she has an upcoming appt with a craft recruiter in [facility]. Due to insurance reasons she need to have her imaging and labs doneat [facility]. PMH HTN DJD Asthma Depression PSH S/p [...] children. 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 Physical Examination BP 132/73 Pulse 92 Temp(Src) 36.6 ??C (97.9 ??F) (Oral) Resp 18 Ht 163.6 cm (5' 4.41) Wt74.4 kg (164 lb 0.4 oz) BMI 27.80 kg/m2 SpO2 98% General: alert, conversant, NAD [...] hour(s)) COMPREHENSIVE METABOLIC PANEL (NON-FASTING) Result Value Range Glucose Lvl 107 60 - 199 mg/dL BUN 15 8 - 18 mg/dL Creatinine 0.67 (*) 0.70 - 1.20 mg/dL Sodium 139 135 - 145 mmol/L Potassium 3.9 3.5 - 5.0 mmol/L Chloride 99 98 - 107 mmol/L CO2 28 22 - 31 mmol/L Anion Gap 12 5 - 15 mmol/L Calcium 9.5 8.5 - 10.5 mg/dL Total Protein 7.0 6.4 - 8.3 gm/dL Albumin 4.8 3.2 - 5.2 gm/dL AST 19 0 - 30 unit/L ALT 15 0 - 30 unit/L Alk Phos 83 40 - 104 unit/L Total Bilirubin 0.3 0.2 - 1.3 mg/dL Bili, Direct 0.1 0.0 - 0.3 mg/dL Estimated GFR >60 >=60 HEMOGRAM Result Value Range WBC 6.8 4.0 - 10.0 x10(3)/mcL RBC 4.33 3.93 - 5.22 x10(6)/mcL Hemoglobin 13.7 11.2 - 15.7 gm/dL Hematocrit 41.7 34.0 - 45.0 % MCV 96.3 (*) 79.0 - 94.0 fL MCH 31.6 26.6 - 32.2 pg MCHC 32.9 32.0 - 36.5 gm/dL Platelets 229 145 - 370 x10(3)/mcL RDWSD 50.9 (*) 35.0 - 46.0 fL RDWCV 14.3 10.9 - 14.4 % MPV 9.1 9.0 - 12.0 fL DIFFERENTIAL, AUTOMATED Result Value Range Neutrophils % 57.2 Neutr Abs (ANC) 3.88 1.50 - 6.30 x10(3)/mcL Lymphocytes % 31.4 Lymphocytes Abs 2.1 1.0 - 3.6 x10(3)/mcL Monocytes % 8.4 Monocyte Abs 0.6 0.2 - 1.0 x10(3)/mcL Eosinophils % 2.1 Eosinophils Abs 0.1 0.0 - 0.5 x10(3)/mcL Basophils % 0.6 Basophils Abs 0.0 0.0 - 0.2 x10(3)/mcL Immature Gran % 0.30 Pavithra Gran Abs 0.02 0.00 - 0.05 x10(3)/mcL Radiology: EXAMINATION: PET/CT STANDARD (Skull base to Mid-thigh) CLINICAL HISTORY: LUNG CA TECHNIQUE: Procedure: Following IV injection of 57-obehxo-0-deoxyglucose (FDG) a standard uptake ofapproximately 60 minutes, a noncontrast CT scan followed by a PET scan were acquired from the base of the skull to mid thighs. The noncontrastCT was used for anatomic localization and photon attenuation correction of the PET scan BLOOD GLUCOSE LEVEL (mg/dL): 110 FDG DOSE (mCi): 11.1 COMPARISON: PET/CT 07/21/2014 FINDINGS: HEAD/NECK: Normal activity in all soft tissue regions of the neck and visualized lower head. CHEST: Normal activity in all soft tissue lesions. Patient is status post interval left upper lobectomy with resection of previously seen left upper lobe malignancy. Scattered bilateral pulmonary calcifications, likely sequela of prior granulomatous disease. ABDOMEN/PELVIS: Normal activity in all soft tissue regions. Unchanged 3.3 cm hypodense left adrenalnodule with Hounsfield units consistent with benign adenoma. SKELETON/EXTREMITIES: Normal activity in all regions of the axial and visualized appendicular skeleton. IMPRESSION: 1. No evidence of recurrent malignancy or metastasis. 2. Stable left adrenal adenoma. MRI results per scanned report A/P: 64 year old female presents for follow-up for stage 1B lung adenocarcinoma [id number] s/p SARAH lobectomy on 08/09/2014. Patient is doing well - she is very relieved of her MRI, PET and lab results. Pt plans to f/u with a counselor and craft recruiter in [facility] - she will let us know if we can assist in helping her establish appointments for find providers. Discussed the need for continued surveillance. Pt to RTC in 3-4 months with labs and CXR. Plan: - RTC in 3-4 months with labs, CXR and clinic appt Cristina Henson APRN documented in this encounter Plan of Treatment Upcoming Encounters Date Type Department Care Team (Late st Contact Info) Description 09/01/2024 4:30 PM EDT Office Visit Dermatology at [facility] [address] [place] [address] Ruma Echavarria MD [facility] DR ABDIRAHMAN [place] [address] documented as of this encounter Procedures Procedure Name Priority Date/Time Associated Diagnosis Comments POCT GLUCOSE Routine 11/16/2014 8:36 AM EST Adenocarcinoma, lung, left Non-small cell carcinoma of left lung, stage 1 HEMOGRAM Routine 11/16/2014 8:20 AM EST Adenocarcinoma, lung, left Non-small cell carcinoma of left lung, stage 1 DIFFERENTIAL, AUTOMATED Routine 11/16/2014 8:20 AM EST Adenocarcinoma, lung, left Non-small cell carcinoma of left lung, stage 1 CBC (WITH DIFF) Routine 11/16/2014 8:20 AM EST Adenocarcinoma, lung, left Non-small cell carcinoma of left lung, stage 1 COMPREHENSIVE METABOLIC PANEL Routine 11/16/2014 8:20 AM EST Adenocarcinoma, lung, left Non-small cell carcinoma of left lung, stage 1 documented in this encounter Results * (ABNORMAL) Comprehensive metabolic panel (non-fasting) (04/13/2015 2:57 PM EDT) [facility] Glucose 94 65 - 199 mg/dL CERNER MILLENNIUM Comment:Diabetes: >=200 mg/d L plus symptoms Blood Urea Nitrogen 17 8 - 18 mg/dL CERNER MILLENNIUM Creatinine 0.74 0.70 - 1.20 mg/dL CERNER MILLENNIUM Comment: Please note that the pediatric reference intervals supplied above were not validated at [facility]. Results from pediatric patients should be interpreted [...] the following links into your internet browser. [email or web address] Blood specimen (specimen) 04/13/2015 2:57 PM EDT 04/13/2015 3:03 PM EDT Narrative Resulting Agency Comment Spec In Lab Tres Graham MD CHEMISTRY ORDERA BLES Performing Organization Address City/[facility]/ZIP Co de Phone Number [facility] GLIIFCODYIUM * POCT Glucose (11/16/2014 8:36 AM EST) Glucose, POC 110 60 - 199 mg/dL CERNER MILLENNIUM Comment: Supplemental ranges: <140 mg/dL before meals <180 mg/dL all other times of the day Blood specimen (specimen) 11/16/2014 8:36 AM EST 11/16/2014 8:36 AM EST Tres Graham MD POINT OF CARE TE ST ORDERABLES JORGE ALBERTO SAWANTENNIUM * Differential, Automated (11/16/2014 8:20 AM EST) Neutrophil % 57.2 % CERNER MILLENNIUM Neutrophil Absolute 3.88 1.50 - 6.30 x10(3)/mcL CERNER MILLENNIUM Lymph % 31.4 % CERNER MILLENNIUM Lymphocytes Abs 2.1 1.0 - 3.6 x10(3)/mcL CERNER MILLENNIUM Monocyte % 8.4 % CERNER MILLENNIUM Monocyte Abs 0.6 0.2 - 1.0 x10(3)/mcL CERNER MILLENNIUM Eos % 2.1 % CERNER MILLENNIUM Eosinophils Abs 0.1 0.0 - 0.5 x10(3)/mcL CERNER MILLENNIUM Basophil % 0.6 % CERNER MILLENNIUM Baso Absolute 0.0 0.0 - 0.2 x10(3)/mcL CERNER MILLENNIUM Immature Gran % 0.30 % CERN ER MILLENNIUM Comment: Immature granulocytes(IG's)percentage and absolute count will include metamyelocytes, myelocytes, and promyelocytes. Blood smears from CBCs yielding IG's will be scanned manually for concordance. If this scan disagrees with the automated IG or if promyelocytes are noted, a manual differential will be performed. Immature Gran Absolute 0.02 0.00 - 0.05 x10(3)/mcL CERNER MILLENNIUM Blood specimen (specimen) 11/16/2014 8:20 AM EST 11/16/2014 8:26 AM EST Narrative Resulting Agency Comment Spec In Lab Tres Graham MD HEMATOLOGY ORDER LACEY JORGE ALBERTO BRIGHT * (ABNORMAL) Hemogram (11/16/2014 8:20 AM EST) White Blood Cell 6.8 4.0 - 10.0 x10(3)/mc L CERNER MILLENNIUM Red Blood Cell 4.33 3.93 - 5.22 x10(6)/mc L CERNER MILLENNIUM Hemoglobin 13.7 11.2 - 15.7 gm/dL CERNER MILLENNIUM Hematocrit 41.7 34.0 - 45.0 % CERNER MILLENNIUM Mean Cell Volume 96.3(H) 79.0 - 94.0 fL CERNER MILLENNIUM Mean Cell Hemoglobin 31.6 26.6 - 32.2 pg CERNER MILLENNIUM Mean Cell Hemoglobin Concentration 32.9 32.0 - 36.5 gm/dL CERNER MILLENNIUM Platelet 229 145 - 370 x10(3)/mc L CERNER MILLENNIUM RDW Standard Deviation 50.9(H) 35.0 - 46.0 fL CERNER MILLENNIUM RDW coefficient of variation 14.3 10.9 - 14.4 % CERNER MILLENNIUM Mean Platelet Volume 9.1 9.0 - 12.0 fL CERNER MILLENNIUM Blood specimen (specimen) 11/16/2014 8:20 AM EST 11/16/2014 8:26 AM EST Narrative Resulting Agency Comment Spec In Lab Tres Graham MD HEMATOLOGY ORDER LACEY CERNER MILLENNIUM * (ABNORMAL) Comprehensive metabolic panel (non-fasting) (11/16/2014 8:20 AM EST) [facility] Glucose 107 60 - 199 mg/dL CERNER MILLENNIUM Comment:Diabetes: >=200 mg/d L plus symptoms Blood Urea Nitrogen 15 8 - 18 mg/dL CERNER MILLENNIUM Creatinine 0.67(L) 0.70 - 1.20 mg/dL CERNER MILLENNIUM Comment: Please note that the pediatric reference intervals supplied above were not validated at [facility]. Results from pediatric patients should be interpreted [...] the following links into your internet browser. [email or web address] Blood specimen (specimen) 11/16/2014 8:20 AM EST 11/16/2014 8:26 AM EST Narrative Resulting Agency Comment Spec In Lab Tres Graham MD CHEMISTRY ORDERA [facility] JORGE ALBERTO BRIGHT documented in this encounter Visit Diagnoses Diagnosis Adenocarcinoma, lung, left Non-small cell carcinoma of left lung, stage 1 documented in this encounter Care Teams Natural Gas Trader Relationship Specialty Start Date End Date Aurelia Bobby MD [address] [place] [address] PCP - General 08/31/14 01/23/24 documented as of this encounter
--- OUTSIDE RECORDS SUMMARY | 2024-07-15 14:32 | XMS_ITS | Encounter Summary ---
Author Organization [facility] [place] [address] Care Team Providers Care Terra Cotta Roofer Helper Name Role Phone Verona Sue Primary Care Provider [phone] Encounter Details Date Type Department Care Team (Late st Contact Info) Description 08/25/2014 Orders Only Hematology [place] [address] Tres Graham MD [facility] [place] [address] Malignant neoplasm of bronchus and lung, unspecified site (Primary Dx) Social History Tobacco Use Types [...] Of [facility] [address] [place] [address] Ruma Echavarria MD [facility] DR ABDIRAHMAN [place] [address] documented as of this encounter Results * Lactate Dehydrogenase (08/31/2014 2:24 PM EDT) Lactate Dehydrogenase 153 110 - 220 unit/L CERNER MILLENNIUM Blood specimen (specimen) 08/31/2014 2:24 PM EDT 08/31/2014 2:27 PM EDT Narrative Resulting Agency Comment Spec In Lab Tres Graham MD CHEMISTRY ORDERA CALIXTOS CERNER MILLENNIUM * (ABNORMAL) Comprehensive metabolic panel (non-fasting) (08/31/2014 2:24 PM EDT) Glucose 104 60 - 199 mg/dL CERNER MILLENNIUM Comment:Diabetes: >=200 mg/d L plus symptoms Blood Urea Nitrogen 15 8 - 18 mg/dL CERNER MILLENNIUM Creatinine 0.68(L) 0.70 - 1.20 mg/dL CERNER MILLENNIUM Comment: Please note that the pediatric reference intervals supplied above were not validated at [facility]. Results from pediatric patients should be interpreted [...] the following links into your internet browser. [email or web address] Blood specimen (specimen) 08/31/2014 2:24 PM EDT 08/31/2014 2:27 PM EDT Narrative Resulting Agency Comment Spec In Lab Tres Graham MD CHEMISTRY ORDERA BLES JORGE ALBERTO BRIGHT documented in this encounter Visit Diagnoses Diagnosis Malignant neoplasm of bronchus and lung, unspecified site- Primary documented in this encounter Care Teams Terra Cotta Roofer Helper Relationship Specialty Start Date End Date Verona Sue PA PCP - General 10/17/10 08/30/14 documented as of this encounter
--- OUTSIDE RECORDS SUMMARY | 2024-07-15 14:32 | XMS_ITS | Encounter Summary ---
Author Organization [facility] Address [address] [place] [address] Care Team Providers Care Crown Blocker Name Role Phone Aurelia Bobby MD Primary Care Provider [phone] Encounter Details Date Type Department Care Team (Late st Contact Info) Description 02/06/2022 Lab Requisition [facility] Pathology & Laboratory Medicine - [facility] [address] [place] [address] Outr Resulting Lab, Provider Social History Tobacco [...] Comments ZZCOVID-19 TEST [facility] PCR Today 02/06/2022 9:30 EDT COVID-19 TESTING Routine 02/06/2022 9:30 EDT documented in this encounter Results * COVID-19 TEST [facility] PCR (02/06/2022 9:30 EDT) Swab 02/06/2022 9:30 EDT 02/06/2022 21:50 EDT Provider Outr Resulting Lab MICROBIOLOGY - GENERAL ORDERABLES [facility] [address] [place] [address] * COVID-19 TESTING (02/06/2022 9:30 EDT) COVID-19 rt-PCR Result Negative Negative 02/07/2022 11:20 EDT [facility] Comment: This test has not been FDA cleared or approved. This test has been authorized by FDA under an EUA for use by authorized laboratories. This test has been authorized only for detection of nucleic acid from 2019-nCoV, not for any other viruses or pathogens. This test is only authorized for the duration of the declaration that circumstances exist justifying the authorization of emergency use of in vitro diagnostic tests for detection and/or diagnosis of 2019-nCoV under section 564(b)(1) of Act, 21 U.S.C ?? 360bbb-3(b) (1), unless the authorization is terminated or revoked sooner. Negative results do not preclude 2019-nCoV infection and should not be used as the sole basis for treatment or other patient management decisions. Negative results must be combined with clinical observations, patient history, and epidemiological information. Testing was performed using the deacon SARS-CoV-2 assay ([employer] on the Deacon 6800 System Performing Lab Deacon [address] [facility] Lab 02/07/2022 11:20 EDT [facility] Swab 02/06/2022 9:30 EDT 02/06/2022 21:50 EDT Provider Outr Resulting Lab MICROBIOLOGY - GENERAL ORDERABLES [facility] [address] [place] [address] documented in this encounter Visit Diagnoses Not on filedocumented in this encounter Care Teams Crown Blocker Relationship Specialty Start Date End Date Aurelia Bobby MD PCP - General 09/25/16 documented as of this encounter
--- OUTSIDE RECORDS SUMMARY | 2024-07-15 14:32 | XMS_ITS | Encounter Summary ---
Author Organization [facility] Address [address] [place] [address] Care Team Providers Care Forest Landscape Ecology Professor Name Role Phone Aurelia Bobby MD Primary Care Provider [phone] Encounter Details Date Type Department Care Team (Late st Contact Info) Description 05/02/2020 Lab Requisition [facility] Pathology & Laboratory Medicine - [facility] [address] [place] [address] Outr Resulting Lab, Provider Social History Tobacco [...] Procedure Name Priority Date/Time Associated Diagnosis Comments LYME AB Routine 05/02/2020 14:08 EDT documented in this encounter Results * LYME AB (05/02/2020 14:08 EDT) Lyme Ab Negative Negative 05/03/2020 10:56 EDT [facility] Blood VENOUS BLOOD / Unknown 05/02/2020 14:08 EDT 05/02/2020 20:35 EDT Provider Outr Resulting Lab IMMUNOLOGY A ND SEROLOGY ORDERABLES [facility] [address] [place] [address] documented in this encounter Visit Diagnoses Not on filedocumented in this encounter Care Teams Forest Landscape Ecology Professor Relationship Specialty Start Date End Date Aurelia Bobby MD PCP - General 09/25/16 documented as of this encounter
--- OUTSIDE RECORDS SUMMARY | 2024-07-15 14:32 | XMS_ITS | Encounter Summary ---
Author Organization [facility] [place] [address] Care Team Providers Care Aquatic Performer Name Role Phone Aurelia Bobby MD Primary Care Provider [phone] Encounter Details Date Type Department Care Team (Late st Contact Info) Description 09/29/2014 [place] [address] Mariella Rangel MD [facility] [place] [address] Social History Tobacco Use Types Packs/Day Years [...] [facility] [address] [place] [address] Ruma Echavarria MD [facility] DR ABDIR[place] [address] documented as of this encounter Procedures Procedure Name Priority Date/Time Associated Diagnosis Comments FILM LIBRARY STORAGE ONLY MR HEAD Routine 09/29/2014 3:05 AM EST documented in this encounter Results * Film Library- Storage only MR Head (09/29/2014 3:05 AM EST) Anatomical Region Laterality Modality Other 09/29/2014 3:05 AM EST Narrative 03/29/2015 3:22 AM EDT This is a Non-reportable exam Procedure Note CYNTHIA, UNSIGNED REPORT - 03/29/2015 This is a Non-reportable exam Mariella Rangel MD IMG FILM LIBRARY O RDERABLES documented in this encounter Visit Diagnoses Not on filedocumented in this encounter Care Teams Aquatic Performer Relationship Specialty Start Date End Date Aurelia Bobby MD [address] [place] [address] PCP - General 08/31/14 01/23/24 documented as of this encounter
--- OUTSIDE RECORDS SUMMARY | 2024-07-15 14:32 | XMS_ITS | Encounter Summary ---
Author Organization [facility] Address [address] [place] [address] Care Team Providers Care Hot Die Press Feeder Name Role Phone Aurelia Bobby MD Primary Care Provider [phone] Encounter Details Date Type Department Care Team (Late st Contact Info) Description 08/07/2021 Lab Requisition [facility] Pathology & Laboratory Medicine - [facility] [address] [place] [address] Outr Resulting Lab, Provider Social History Tobacco [...] Date/Time Associated Diagnosis Comments LYME AB Routine 08/07/2021 9:27 EDT documented in this encounter Results * LYME AB (08/07/2021 9:27 EDT) Lyme Ab Negative Negative 08/08/2021 11:10 EDT [facility] Blood VENOUS BLOOD / Unknown 08/07/2021 9:27 EDT 08/07/2021 21:19 EDT Provider Outr Resulting Lab IMMUNOLOGY A ND SEROLOGY ORDERABLES [facility] [address] [place] [address] documented in this encounter Visit Diagnoses Not on filedocumented in this encounter Care Teams Hot Die Press Feeder Relationship Specialty Start Date End Date Aurelia Bobby MD PCP - General 09/25/16 documented as of this encounter
--- OUTSIDE RECORDS SUMMARY | 2024-07-15 14:32 | XMS_ITS | Encounter Summary ---
Author Organization [facility] Address [address] [place] [address] Care Team Providers Care Coke Burner Name Role Phone Elizabeth Arce MD Primary Care Provider [phone] Encounter Details Date Type Department Care Team (Late st Contact Info) Description 09/19/2016 Results Only [facility] [[email or web address]] [phone] Brian Delgado, DO [address] [facility] [address] [place], [place] [id number] Social History Tobacco Use Types Packs/Day Years Used Date Smoking Tobacco: Never Assessed Sex and Gender Information Value Date Recorded Sex Assigned at Not on file Gender Identity Not on file Sexual Orientation Not on file documented as of this encounter Plan of Treatment Not on file documented as of this encounter Procedures Procedure Name Priority Date/Time Associated Diagnosis Comments SURGICAL PATHOLOGY Routine 09/19/2016 13 :39 EDT documented in this encounter Results * SURGICAL PATHOLOGY (09/19/2016 13:39 EDT) Pathology Report: SURGICAL PATHOLOGY REPORT Reports generated via electronic interface contain original data; however they are lacking the format of the original report. Caution should be taken when reading/interpret ing unformatted reports. Name: ? ISAURA MORGAN ? Accession #: ? [id number] ? : ? 1950 (Age: 66) ??F ? Collect Date: ? 09/19/2016 ? Location: ? [facility] ? Receive Date: ? 09/20/2016 ? Provider: BRIAN DELGADO DO Copy to: YULY BURNS MD ? Final Pathologic Diagnosis: A. COLON, TRANSVERSE POLYPS, BIOPSIES: - Hyperplastic polyp. - Portion of colonic mucosa with no specific pathologic features. See comment. B. COLON, SIGMOID POLYP, BIOPSY: - Colonic mucosa with surface hyperplastic changes. Comment: Deeper sections of these biopsies have been examined. Dr. Black Document reviewed and electronically signed by: LI BLACK MD Report ??Date: 09/24/2016 09:18 By the signature above, the attending physician certifies that he/she has personally conducted a gross and/or microscopic examination of the described specimens and rendered or confirmed the above diagnosis. Specimen(s) Received: A. ??Transverse colon polyp biopsy x2 B. ??Sigmoid colon polyp Clinical History: Screening; family history colon cancer Gross Description: A. ?Received in formalin labelled with proper patient identification (initials R, E) and transverse colon polyp bx x2 are two pink-collins tissues (0.3 x 0.3 x 0.2 cm and 0.5 x 0.2 x 0.2 cm). Entirely submitted in A1. B. ?Received in formalin labelled with proper patient identification (initials R, E) and sigmoid polyp is a single pink-collins tissue fragment (0.3 x 0.3 x 0.2 cm). Submitted intact in B1. [employer] (ASCP) 09/20/2016 3:46 PM End of Report [facility] 09/19/2016 13:3 9 EDT 09/20/2016 13:39 EDT Brian Delgado DO PATHOLOGY ORDER LACEY [facility] [address] [place] [address] documented in this encounter Visit Diagnoses Not on filedocumented in this encounter Care Teams Coke Burner Relationship Specialty Start Date End Date Elizabeth Arce MD [address] [place] [address] PCP - General 08/31/09 09/24/16 documented as of this encounter
--- OUTSIDE RECORDS SUMMARY | 2024-07-15 14:32 | XMS_ITS | Encounter Summary ---
[place] [address] Care Team Providers Care Qa Specialist Name Role Phone Aurelia Bobby MD Primary Care Provider [phone] Encounter Details Date Type Department Care Team (Latest Contact Info) Description 11/16/2014 8:26 AM EST - 11/16/2014 11:59 PM [facility] Hospital Encounter [place] [phone] Malignant neoplasm of bronchus and lung, unspecified site Social History Tobacco Use Types Packs/Day Years [...] 0-2 tablets by mouth daily as needed. sertraline (ZOLOFT) 50 mg tablet Take 150 mg by mouth daily. 04/01/2015 losartan-hydrochloroth iazide (HYZAAR) 50-12.5 mg per tabletIndications:hype rtension Take 1 tablet by mouth daily. Taking 100-25mg Indications: Hypertension 04/01/2015 documented as of this encounter Plan of Treatment Upcoming Encounters Date Type Department Care Team (Late st Contact Info) Description 09/01/2024 4:30 PM EDT Office Visit Dermatology at [facility] [address] [place] [address] Ruma Echavarria MD [facility] DR ABDIRAHMAN [place] [address] documented as of this encounter Procedures Procedure Name Priority Date/Time Associated Diagnosis Comments NM PET CT SKULL BASE TO MID-THIGH ([facility]) Routine 11/16/2014 10:00 AM EST Malignant neoplasm of bronchus and lung, unspecified site documented in this encounter Results * PET/CT STANDARD (Skull base to Mid-thigh) (11/16/2014 10:00 AM EST) Anatomical Region Laterality Modality Other 11/16/2014 10:0 0 AM EST Impressions 11/16/2014 2:23 PM EST IMPRESSION: 1. No evidence of recurrent malignancy or metastasis. 2. Stable left adrenal adenoma. Thank you for referring this patient [facility]. This report was reviewed by Jose Jean at 11/16/2014 2:18 PM Film and interpretation reviewed by the attending Narrative 11/16/2014 2:23 PM EST EXAMINATION: PET/CT STANDARD (Skull base to Mid-thigh) CLINICAL HISTORY: LUNG CA TECHNIQUE: Procedure: Following IV injection of 60-hvtmuv-0-deoxyglucose (FDG) a standard uptake of approximately 60 minutes, a noncontrast CT scan followed by a PET scan were acquired from the base of the skull to mid thighs. The noncontrast CT was used for anatomic localization and [...] tissue regions. Unchanged 3.3 cm hypodense left adrenal nodule with Hounsfield units consistent with benign adenoma. SKELETON/EXTREMITIES: Normal activity in all regions of the axial and visualized appendicular skeleton. Procedure Note Jose Jean MD - 11/16/2014 EXAMINATION: PET/CT STANDARD (Skull base to Mid-thigh) CLINICAL HISTORY: LUNG CA TECHNIQUE: Procedure: Following IV injection of 19-dxybxy-6-deoxyglucose(FDG) a standard uptake of approximately 60 minutes, a noncontrast CT scanfollowed by a PET scan were acquired from the base of the skull to mid thighs. Thenoncontrast CT was used for anatomic localization and photon attenuation correction ofthe PET scan BLOOD GLUCOSE LEVEL (mg/dL): 110 FDG DOSE (mCi): 11.1 COMPARISON: PET/CT 07/21/2014 FINDINGS: HEAD/NECK: Normal activity in all soft tissue regions of the neck andvisualized lower head. CHEST: Normal activity in all soft tissue lesions. Patient is statuspost interval left upper lobectomy with resection of previously seen left upperlobe malignancy. Scattered bilateral pulmonary calcifications, likely sequelaof prior granulomatous disease. ABDOMEN/PELVIS: Normal activity in all soft tissue regions. Unchanged 3.3cm hypodense left adrenal nodule with Hounsfield units consistent withbenign adenoma. SKELETON/EXTREMITIES: Normal activity in all regions of the axial and visualized appendicular skeleton. IMPRESSION IMPRESSION: 1. No evidence of recurrent malignancy or metastasis. 2. Stable left adrenal adenoma. Thank you for referring this patient [facility]. This report was reviewed by Jose Jean at 11/16/2014 2:18 PM Film and interpretation reviewed by the attending Tres Graham MD IMG PET ORDERABL ES documented in this encounter Visit Diagnoses Diagnosis Malignant neoplasm of bronchus and lung, unspecified site documented in this encounter Care Teams Qa Specialist Relationship Specialty Start Date End Date Aurelia Bobby MD [address] [place] [address] PCP - General 08/31/14 01/23/24 documented as of this encounter
--- OUTSIDE RECORDS SUMMARY | 2024-07-15 14:32 | XMS_ITS | Encounter Summary ---
Author Organization [facility] [place] [address] Care Team Providers Care Financial Retirement Plan Specialist Name Role Phone Verona Sue Primary Care Provider [phone] Encounter Details Date Type Department Care Team (Latest Contact Info) Description 07/16/2014 10:02 AM EDT - 07/16/2014 11:59 PM EDT Hospital [place] [phone] Lung mass (Primary Dx) Social History Tobacco [...] Hypertension 04/01/2015 documented as of this encounter Procedure Notes * Esa Stafford MD - 07/18/2014 12:39 PM EDTAssociated Order(s): PULMONARY FUNCTION TEST Forced vital capacity is normal. FEV1 is normal. The ratio is normal. Normal spirometry and diffusing capacity documented in this encounter Plan of Treatment Upcoming Encounters Date Type Department Care Team (Late st Contact Info) Description 09/01/2024 4:30 PM EDT Office Visit Dermatology at [facility] [address] [place] [address] Ruma Echavarria MD [facility] DR ABDIRAHMAN AGUILAR[place] [address] documented as of this encounter Procedures Procedure Name Priority Date/Time Associated Diagnosis Comments COMMON PULMONARY FUNCTION TEST Routine 07/18/2014 12:39 PM EDT Lung mass documented in this encounter Results * Pulmonary Function Testing [...] chest documented in this encounter Care Teams Financial Retirement Plan Specialist Relationship Specialty Start Date End Date Verona Sue PA PCP - General 10/17/10 08/30/14 documented as of this encounter
--- OUTSIDE RECORDS SUMMARY | 2024-07-15 14:32 | XMS_ITS | Encounter Summary ---
Author Organization [facility] Address [address] [place] [address] Care Team Providers Care Manager Quality Improvement Name Role Phone Elizabeth Arce MD Primary Care Provider [phone] Encounter Details Date Type Department Care Team (Latest Contact Info) Description 09/19/2016 8:24 EDT - 09/19/2016 23:59 EDT Hospital Encounter [address] [address] Unknown, Provider, Discharge Disposition: Home or Self Care Social History Tobacco Use Types Packs/Day Years Used Date Smoking Tobacco: Never Assessed Sex and Gender Information Value Date Recorded Sex Assigned at Not on file Gender Identity Not on file Sexual Orientation Not on file documented as of this encounter Discharge Disposition Disposition Code Departure Means Destination Home or Self Retirement documented in this encounter Plan of Treatment Not on file documented as of this encounter Visit Diagnoses Not on filedocumented in this encounter Care Teams Manager Quality Improvement Relationship Specialty Start Date End Date Elizabeth Arce MD [address] [place] [address] PCP - General 08/31/09 09/24/16 documented as of this encounter
--- OUTSIDE RECORDS SUMMARY | 2024-07-15 14:32 | XMS_ITS | Encounter Summary ---
Author Organization [facility] [place] [address] Care Team Providers Care Wig Comber Name Role Phone Verona Sue Primary Care Provider [phone] Encounter Details Date Type Department Care Team (Late st Contact Info) Description 06/15/2014 Orders [place] [address] Cindy Hardwick MD [facility] [place] [address] Social History Tobacco Use Types Packs/Day Years [...] 4:30 PM EDT Office Visit Dermatology at [facility] [address] [place] [address] Ruma Echavarria MD [facility] DR ABDIRAHMAN [place] [address] documented as of this encounter Procedures Procedure Name Priority Date/Time Associated Diagnosis Comments FILM LIBRARY STORAGE ONLY DX CHEST Routine 06/15/2014 9:15 AM EDT documented in this encounter Results * Film Library- Storage only DX Chest (06/15/2014 9:15 AM EDT) Anatomical Region Laterality Modality Other 06/15/2014 9:15 AM EDT Narrative 06/24/2014 3:29 PM EDT This is a Non-reportable exam Procedure Note 06/24/2014 This is a Non-reportable exam Cindy Hardwick [place] [facility] [place] LIBRARY ORD ERABLES documented in this encounter Visit Diagnoses Not on filedocumented in this encounter Care Teams Wig Comber Relationship Specialty Start Date End Date Verona Sue PA PCP - General 10/17/10 08/30/14 documented as of this encounter
--- OUTSIDE RECORDS SUMMARY | 2024-07-15 14:32 | XMS_ITS | Encounter Summary ---
Author Organization [facility] [place] [address] Care Team Providers Care Lace Inspector Name Role Phone Verona Sue Primary Care Provider [phone] Encounter Details Date Type Department Care Team (Late st Contact Info) Description 06/29/2014 [place] [address] Kenney Reyes MD [facility] [place] [address] Social History Tobacco Use Types Packs/Day Years Used Date Smoking Tobacco: Never Assessed Sex and Gender Information Value Date Recorded Sex Assigned at Female 06/08/2021 7:37 PM EDT Gender Identity Not on file Sexual Orientation Not on file documented as of this encounter Progress Notes * Kenney Reyes MD - 06/29/2014 11:24 AM EDT Images from the original note were not included. PRE-PROCEDURE VIR NOTE: Referring Physician: No ref. provider found PCP: JOSESITO ALFRED Planned Procedure: CT guided SARAH lung mass biopsy Procedure Indication: SARAH lung mass Presenting Diagnosis/ Complaint: Isaura Arellano is a 63 y.o. female with a SARAH lung mass Past Medical/Surgical History There is no problem list on file for this patient. No past medical history on file. No past surgical history on file. Medications: Current Outpatient Prescriptions on File Prior to Visit Medication Sig Dispense Refill ??? CIS Free Text Med - Klonopin ??? CIS Free Text Med - Albuterol (Refill) ??? lamoTRIgine (LAMICTAL) 200 mg tablet ??? aripiprazole (ABILIFY) 15 mg tablet ??? aspirin 325 mg tablet Allergies: Review of patient's allergies indicates no known allergies. Social History and Habits: History Social History ??? Marital Status: Spouse Name: N/A Number of Children: N/A ??? Years of Education: N/A Occupational History ??? Not on file. Social History Main Topics ??? Smoking status: Not on file ??? Smokeless tobacco: Not on file ??? Alcohol Use: Not on file ??? Drug Use: Not on file ??? Sexually Active: Not on file Other Topics Concern ??? Not on file Social History Narrative ??? No narrative on file Significant Family History: No family history on file. Physical Exam: Pending Labs: No results found for this basename: wbc, anc, hct, PLATELET, inr, bun, creatinine, alkphos, ast, albumin, bilidir, bilitot, alt, prot Prior relevant imaging: Assessment/Plan: Patient Position: supine Biopsy/drain access site: SARAH lung mass Medications to discontinue (and days): [325 mg aspirin , hold for 5 days] Labs: [obtain per CT protocol] General anesthesia required: [no] documented in this encounter Plan of Treatment Upcoming Encounters Date Type Department Care Team (Late st Contact Info) Description 09/01/2024 4:30 PM EDT Office Visit Dermatology at [facility] [address] [place] [address] Ruma Echavarria MD [facility] DR A[place] [address] documented as of this encounter Visit Diagnoses Not on filedocumented in this encounter Care Teams Lace Inspector Relationship Specialty Start Date End Date Verona Sue PA PCP - General 10/17/10 08/30/14 documented as of this encounter
--- OUTSIDE RECORDS SUMMARY | 2024-07-15 14:32 | XMS_ITS | Encounter Summary ---
Author Organization [facility] [place] [address] Care Team Providers Care Post Acute Care Registered Nurse Name Role Phone Verona Sue Primary Care Provider [phone] Encounter Details Date Type Department Care Team (Late Contact Info) Description 07/12/2014 Orders [place] [address] Esa Stafford MD [facility] [place] [address] Lung mass (Primary Dx) Social History Tobacco [...] at [facility] [address] [place] [address] Ruma Echavarria MD [facility] [address] [place] [address] documented as of this encounter Visit Diagnoses Diagnosis Lung mass- Primary Swelling, mass, or lump in chest documented in this encounter Care Teams Post Acute Care Registered Nurse Relationship Specialty Start Date End Date Verona Sue PA PCP - General 10/17/10 08/30/14 documented as of this encounter
--- OUTSIDE RECORDS SUMMARY | 2024-07-15 14:32 | XMS_ITS | Encounter Summary ---
Author Organization [facility] Address [address] [place] [address] Care Team Providers Care Operations Research Group Manager Name Role Phone Aurelia Bobby MD Primary Care Provider [phone] Encounter Details Date Type Department Care Team (Late st Contact Info) Description 10/24/2023 Lab Requisition [facility] Pathology & Laboratory Medicine - [facility] [address] [place] [address] Aurelia Bobby MD [facility] [address] [place] [id number] Encounter for other general examination Social History Tobacco Use Types Packs/Day Years [...] Date/Time Associated Diagnosis Comments SURGICAL PATHOLOGY Today 10/22/2023 11 :00 EST Encounter for other general examination documented in this encounter Results * SURGICAL PATHOLOGY (10/22/2023 11:00 EST) Note to Patient The following pathology results have been interpreted by your pathologist and may be available to you before your health provider has had the opportunity to review them. Please allow time for your provider to receive these results and explore management options, if applicable. 10/25/2023 9:32 EST [facility] Final Diagnosis A. SKIN OF LOWER LEG, LEFT, PUNCH BIOPSY: - Consistent with lichen planus. (see comment) 10/25/2023 9:32 [facility] Diagnosis Comment Sections demonstrate punch biopsy to the level of deep dermis. There is a compact hyperkeratosis and thickened granular layer. Within the dermis there is a lichenoid infiltrate of lymphocytes with prominent interface change with saw-toothing of the rete ridges and scattered dyskeratotic keratinocytes. 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 Clinicopathologic correlation is recommended. 10/25/2023 9:32 [facility] Attestation By the signature below, the attending physician certifies that they have 1) personally conducted a gross and/or microscopic examination of the described specimen(s), and/or personally interpreted the results of laboratory testing of the described specimen(s), and 2) personally rendered or confirmed the above diagnosis. 10/25/2023 9:32 [facility] at 0932 Clinical History Multiple round raised areas, start itchy then expanded, all over body 10/25/2023 9:32 [facility] Gross Description A. Received in formalin labelled with proper patient identification (initials R, E) and LLE are 2 punch biopsies of collins-white skin (0.3 cm in diameter and 0.2-0.3 cm in thickness). The punch biopsies are inked and submitted intact in A1. Jayda Cardozo 10/24/2023 13:02 10/25/2023 9:32 [facility] Performing Lab [facility] 10/25/2023 9:32 [facility] Scanned Images 10/25/2023 9:32 [facility] Tissue SPECIMEN FROM SKIN / Unknown 10/22/2023 11:00 EST 10/24/2023 8:27 EST Aurelia Bobby MD PATHOLOGY ORDERABLE S [facility] [address] [place] [address] documented in this encounter Visit Diagnoses Diagnosis Encounter for other general examination documented in this encounter Care Teams Operations Research Group Manager Relationship Specialty Start Date End Date Aurelia Bobby MD PCP - General 09/25/16 documented as of this encounter
--- OUTSIDE RECORDS SUMMARY | 2024-07-15 14:32 | XMS_ITS | Encounter Summary ---
Author Organization [facility] [place] [address] Care Team Providers Care Manager Latin Name Role Phone Verona Sue Primary Care Provider [phone] Encounter Details Date Type Department Care Team (Late st Contact Info) Description 06/24/2014 [place] [address] Cindy Hardwick MD [facility] [place] [address] Social History Tobacco Use Types Packs/Day Years [...] PM EDT Office Visit Dermatology at [facility] [address] [place] [address] Ruma Echavarria MD [facility] DR ABDIRAH[place] [address] documented as of this encounter Procedures Procedure Name Priority Date/Time Associated Diagnosis Comments FILM LIBRARY STORAGE ONLY CT CHEST Routine 06/24/2014 3:15 PM EDT documented in this encounter Results * Film Library- Storage only CT Chest (06/24/2014 3:15 PM EDT) Anatomical Region Laterality Modality Chest Other 06/24/2014 3:15 PM EDT Narrative 06/24/2014 3:32 PM EDT This is a Non-reportable exam Procedure Note 06/24/2014 This is a Non-reportable exam Cindy Hardwick MD [facility] [place]RARY ORD ERABLES documented in this encounter Visit Diagnoses Not on filedocumented in this encounter Care Teams Manager Latin Relationship Specialty Start Date End Date Verona Sue PA PCP - General 10/17/10 08/30/14 documented as of this encounter
--- OUTSIDE RECORDS SUMMARY | 2024-07-15 14:32 | XMS_ITS | Encounter Summary ---
Author Organization [facility] [place] [address] Care Team Providers Care Environmental Studies Program Director Name Role Phone ChapinChanceTamera Primary Care Provider Encounter Details Date Type Department Care Team (Late Contact Info) Description 12/05/2009 Orders Only Pediatric Nephrology [address] [phone] Delbert Wetzel MD [facility] [place] [address] Social History Tobacco Use Types Packs/Day Years [...] 4:30 PM EDT Office Visit Dermatology at [facility] [address] [place] [address] Ruma Echavarria MD [facility] [address] [place] [address] documented as of this encounter Procedures Procedure Name Priority Date/Time Associated Diagnosis Comments SURGICAL PATHOLOGY REPORT Routine 12/05/2009 2:41 PM EST documented in this encounter Results * Surgical Pathology Report (12/05/2009 2:41 PM EST) Surgical Pathology Report [id number] ? Location: 4T The signing pathologist has (i) examined the relevant preparation(s) for the specimen(s) and (ii) rendered or confirmed the diagnosis(es). . ?Pathology Surgical Pathology Final Report Clinical Information Specimen Submitted: A - 3 and 4-mm polyps, sigmoid B - 4-mm hyperplastic appearing, sigmoid Clinical History: Hx of polyps Clinical Diagnosis: 3 months surveillance Gross Description A - Labeled/Fixative : 3 and 4-mm polyps, sigmoid; formalin. Qty/Size/Weight: ?Two, averaging 0.3 x 0.2 x 0.2 cm. Tissue Description: ?? Soft, collins tissues. Sections/Process ing: ??(T1) B - Labeled/Fixative : 4-mm hyperplastic-giovani earing sigmoid, formalin. Qty/Size/Weight: ?Averaging 0.1 cm or less in greatest diameter and ?aggregating 0.3 x 0.2 x 0.1 cm. Tissue Description: ?? Friable, soft, collins tissues. Sections/Process ing: ??(T1) ??aje/PPS Microscopic Description Slides reviewed, microscopic description not recorded. Diagnosis A. Colon, sigmoid, polyps, biopsy: Hyperplastic polyps. B. Colon, sigmoid, biopsy: Benign colonic mucosa with superficial crypt hyperplasia. CR-PX 12/06/09 AAS 12/06/09 Verified by: ? Maricel Casanova MD ?Pathologist ?(Electronic Signature) The attending pathologist whose signature appears on this report has reviewed all diagnostic slides and has edited the gross and/or microscopic portion of the report in rendering the final pathologic diagnosis. JORGE ALBERTO BRIGHT 12/05/2009 2:41 PM EST Delbert Wetzel MD PATHOLOGY/CYTOLOGY [facility] documented in this encounter Visit Diagnoses Not on filedocumented in this encounter Care Teams Environmental Studies Program Director Relationship Specialty Start Date End Date Tamera Jensen [address] [place] [address] PCP - General Family Medicine 01/24/24 documented as of this encounter
--- OUTSIDE RECORDS SUMMARY | 2024-07-15 14:32 | XMS_ITS | Encounter Summary ---
Author Organization [facility] Address [address] [place] [address] Care Team Providers Care Winder Contort Operator Name Role Phone Aurelia Bobby MD Primary Care Provider [phone] Encounter Details Date Type Department Care Team (Late st Contact Info) Description 07/16/2022 Lab Requisition [facility] Pathology & Laboratory Medicine - [facility] [address] [place] [address] Outr Resulting Lab, Provider Social History Tobacco [...] Comments ZZCOVID-19 TEST [facility] PCR Today 07/16/2022 10:00 EDT COVID-19 TESTING Routine 07/16/2022 10:0 0 EDT documented in this encounter Results * COVID-19 TEST [facility] PCR (07/16/2022 10:00 EDT) Swab 07/16/2022 10:0 0 EDT 07/17/2022 16:46 EDT Provider Outr Resulting Lab MICROBIOLOGY - GENERAL ORDERABLES [facility] [address] [place] [address] * COVID-19 TESTING (07/16/2022 10:00 EDT) COVID-19 rt-PCR Result Negative Negative 07/18/2022 14:23 EDT [facility] Comment: This test has [...] was performed using the deacon SARS-CoV-2 assay ([employer] on the Deacon 6800 System Performing Lab [facility]acon [address] [facility] 07/18/2022 14:23 EDT [facility] Swab 07/16/2022 10:0 0 EDT 07/17/2022 16:46 EDT Provider Outr Resulting Lab MICROBIOLOGY - GENERAL ORDERABLES [facility] [address] [place] [address] documented in this encounter Visit Diagnoses Not on filedocumented in this encounter Care Teams Winder Contort Operator Relationship Specialty Start Date End Date Aurelia Bobby MD PCP - General 09/25/16 documented as of this encounter
--- OUTSIDE RECORDS SUMMARY | 2024-07-15 14:32 | XMS_ITS | Encounter Summary ---
Author Organization [facility] [place] [address] Care Team Providers Care Assistant Associate Full Professor Name Role Phone Aurelia Bobby MD Primary Care Provider [phone] Encounter Details Date Type Department Care Team (Late st Contact Info) Description 09/01/2014 Orders Only H[place] [address] Pat Aguiar Social History Tobacco Use Types Packs/Day Years [...] [facility] [address] [place] [address] Ruma Echavarria MD [facility] DR ABDIRAHMAN [place] [address] documented as of this encounter Visit Diagnoses Not on filedocumented in this encounter Care Teams Assistant Associate Full Professor Relationship Specialty Start Date End Date Aurelia Bobby MD [address] [place], [place] [address] PCP - General 08/31/14 01/23/24 documented as of this encounter
--- OUTSIDE RECORDS SUMMARY | 2024-07-15 14:32 | XMS_ITS | Encounter Summary ---
Author Organization [facility] [place] [address] Care Team Providers Care Audio Tape Librarian Name Role Phone Verona Sue Primary Care Provider [phone] Encounter Details Date Type Department Care Team (Latest Contact Info) Description 07/08/2014 7:54 AM EDT - 07/08/2014 11:59 PM EDT Hospital [place] [id number] CLINIC, DR STEVEN Stafford, Esa Guevara MD [facility] [place] [address] Lung mass; Lung nodule Discharge Disposition: Home Social History Tobacco Use Types Packs/Day Years Used Date Smoking Tobacco: Never Assessed Sex and Gender Information Value Date Recorded Sex Assigned at Female 06/08/2021 7:37 PM EDT Gender Identity Not on file Sexual Orientation Not on file documented as of this encounter Last Filed Vital Signs Vital Sign Reading Time Taken Comments Blood Pressure 117/78 07/08/2014 12:00 PM EDT Pulse 57 07/08/2014 12:00 PM EDT Temperature 36.4 ??C (97.5 ??F) 07/08/2014 10:00 AM E DT Respiratory Rate 20 07/08/2014 12:00 PM EDT Oxygen Saturation 93% 07/08/2014 12:00 PM EDT Inhaled Oxygen Concentration - - Weight - - Height - - Body Mass Index - - documented in this encounter Discharge Instructions * Discharge Instructions* Laura Boland RN - 07/08/2014 10:14 AM EDT [facility] Vascular and Interventional Radiology Biopsy Discharge Instructions Lung biopsy: coughing up a little blood is common during the next 24 hours. If large blood clots come up, or if the bleeding gets worse, you should contact us or your doctor immediately. The most common complication is collapse of the lung. The symptoms of lung collapse are increasing pain on breathing, often extending into the shoulder on the side of the biopsy, and increasing difficulty breathing. If these symptoms occur after you leave the hospital, have someone drive you to the nearest Emergency Department as it must be treated promptly or call 911. Activity And Diet: Go home and rest quietly for the remainder of the day. You may resume your normal activities tomorrow. Resume your usual diet after the procedure. Do not drive, sign any important/legal documents, or make any important decisions for 24 hours following sedation medications. When to call your healthcare provider: If you see any redness, swelling or drainage at the biopsy site. If you develop chills. If you have a fever greater than or equal to 101 degrees Fahrenheit. If you develop pain around the biopsy site. Bandage: Check the dressing/bandaid throughout the day for an increase in drainage. Keep the biopsy site dryfor 24 hours. Replace the bandaid as needed. You may shower 24 hours after the biopsy. Medication: DO NOT take aspirin-containing products, ibuprofen, or blood-thinning medication for the next 24 hours unless your doctor says you may do so. Generally you may use acetaminophen as needed for discomfort unless you have liver disease and are instructed not to take acetaminophen. Biopsy Results The results of your biopsy should be available within 5 business days and will be reported to you by your primary daytime caregiver or the clinician who ordered the biopsy. Please do not call us for results as we will not have them. If you have not been contacted by your clinician within 5 business days you should call that officefor further information. When to call the Interventional Radiology Department: Please call with any questions or concerns. If it is during regular office hours, please call [phone]. If it is after regular office hours, or on weekends or holidays, please call [phone] and ask to speak to the Assistant Dean insulation worker for Interventional Radiology. You have received medication during your procedure to help lesson anxiety and keep you comfortable.These medications affect judgement and reaction time. We recommend that you do not drive, operate equipment, sign any important documents, or smoke unattended for 24 hours following your procedure. Because of the sedation, be careful on stairs, as you may be unsteady on your feet. You may resume your regular diet as tolerated. IV site -- slight redness, or tenderness is normal, you can use a warm compress. If tenderness and redness increases or foul drainage occurs, please contact your M. D. Revised 12/07/11 documented in this encounter Medications at Time of Discharge Medication Sig Dispensed Refills Start Date End Date clonazePAM (KlonoPIN) 0.5 mg Tablet 0.5 mg as needed. 03/03/2014 2 sertraline (ZOLOFT) 50 mg tablet Take 150 mg by mouth daily. 04/01/2015 losartan-hydrochloroth iazide (HYZAAR) 50-12.5 mg per tabletIndications:hype rtension Take 1 tablet by mouth daily. Taking 100-25mg Indications: Hypertension 04/01/2015 documented as of this encounter Progress Notes * Olga Vyas RN - 07/08/2014 11:58 AM EDT Pt to Xray core for 2 hour post lung biopsy CXR. VSS. Valeriy Vyas RN * Nick Peterson MD - 07/08/2014 8:34 AM EDT VIR PRE-PROCEDURE NOTE ADDENDUM Name: Isaura Arellano Date of : 1950 Procedure: CT-guided left lung biopsy Physical Examination: Chest: clear to auscultation, no wheezes, rales or rhonchi, symmetric air entry Heart: normal rate, regular rhythm, normal S1, S2, no murmurs, rubs, clicks or gallops Abdomen: soft, nontender, nondistended, no masses or organomegaly ASA 2 - Patient with mild systemic disease with no functional limitations Mallampati I (soft palate, uvula, fauces, tonsillar pillars visible) The planned procedure, its benefits and its risks were discussed with the patient and consent was given. -Nick Peterson MD * Laura Boland RN - 07/06/2014 5:16 PM EDT [facility] DATABASE Name: ISAURA ARELLANO Date of : 1950 AGE 64 y.o. Address: [address] [place] [id number] (home) [phone] (work) Mobile: Telephone Information: Referring Provider: Esa Stafford Reason for Visit: CT guided left lung Biopsy Assessment/Plan: Patient Position: supine Biopsy/drain access site: SARAH lung mass Medications to discontinue (and days): [325 mg aspirin , hold for 5 days] Labs: [obtain per CT protocol] General anesthesia required: [no] Allergies no known allergies Pertinent PMH: There is no problem list on file for this patient. No past medical history on file. Pertinent PSH: No past surgical history on file. Date/Procedure Comments: 07/08/14 CT guided SARAH lung bx Versed 3 mg, Fentanyl 150 mcg, zofran 4 mg Laboratory Results: No results found for this basename: inr No results found for this basename: PT, PTT No results found for this basename: BUN No results found for this basename: creatinine No results found for this basename: k No results found for this basename: PLATELET Medications: Prior to Admission medications Medication Sig Start Date End Date Taking? Authorizing Provider [facility] - Klonopin 07/20/10 [facility] - Albuterol (Refill) 07/20/10 lamoTRIgine (LAMICTAL) 200 mg tablet 07/20/10 aripiprazole (ABILIFY) 15 mg tablet 07/20/10 aspirin 325 mg tablet 07/20/10 For outpatient procedures: I have informed this patient that they require a commercial relief driver to drive them home after this procedure. In the absence of a commercial relief driver, IR will not be able to perform this procedure and will need to reschedule. Pt verbalized understanding of these instructions during the pre-procedure education via phone. (initials) Pt has informed caller that blood thinner was stopped on per MD order. documented in this encounter Procedure Notes * Roseanne Ureña MD - 07/08/2014 10:35 AM EDTProcedure(s): CT GUIDED BIOPSY LUNG VIR PROCEDURE NOTE Procedure: CT-guided left upper lobe biopsy (acc # [id number]) Indication: SARAH mass. ?etiology. Technique: After discussing risks (including infection, hemorrhage), and benefits of the procedure,patient consented to the procedure. Due to the painful nature of the procedure, split doses of fentanyl and versed were administered bythe IR nurse during continuous monitoring of pulse, blood pressure and oxygen saturation. SARAH nodule was localized with noncontrast CT chest. Maximal sterile barrier technique was used throughout the procedure. After sterile preparation overlying skin, 1% lidocaine SQ was administered foranesthesia, small incision was made in the skin and an 19 ga coaxial needle was advanced under CT fluoroscopic guidance into the nodule. Eight 20G 1cm Core needle biopsies were performed and specimens submitted for pathological analysis. Needle removed and hemostasis obtained by manual compression.Patient tolerated the procedure well. Post procedure scan showed no immediate complications. Findings: Solid small SARAH nodule yielding somewhat fragmented material. Impression: Successful CT guided SARAH lung biopsy. Resident/Fellow: none I, Dr. Ureña, performed the procedure 3 mg IV versed and 150 mcg IV fentanyl administered. 10 cc 1% lidocaine administered SQ. EBL: 0 documented in this encounter Miscellaneous Notes * Miscellaneous - Provider, Scanning - 07/16/2014 10:22 AM EDT documented in this encounter Plan of Treatment Upcoming Encounters Date Type Department Care Team (Late st Contact Info) Description 09/01/2024 4:30 PM EDT Office Visit Dermatology at [facility] [address] [place] [address] Ruma Echavarria MD [facility] DR ABDIRAH[place] [address] documented as of this encounter Procedures Procedure Name Priority Date/Time Associated Diagnosis Comments XR CHEST ONE VIEW Routine 07/08/2014 12: [address] GUIDED BIOPSY LUNG Routine 07/08/2014 10:00 AM EDT Lung nodule SPECIMEN TO PATHOLOGY (NON-OR) Routine 07/08/2014 9:10 AM EDT CYTOPATHOLOGY NON-GYNECOLOGICAL Routine 07/08/2014 8:26 AM EDT documented in this encounter Results * XR chest PA or AP- 1 view (07/08/2014 12:11 PM EDT) Anatomical Region Laterality Modality Chest N/A Radiographic [place] ging 07/08/2014 12:1 1 PM EDT Narrative 07/08/2014 12:14 PM EDT Examination CHEST AP Clinical History s/p left lung biopsy ?ptx Comparison None Technique Findings There is a small hazy opacity in the left upper lung zone at the site of the lung biopsy, most likely representing a small amount of hemorrhage or edema. ?? However, no pneumothorax or other major complication is seen. ??The lungs are otherwise clear. ??The cardiomediastinal silhouette appears normal. Impression No pneumothorax or other major complication. Procedure Note Austin Borrego MD - 07/08/2014 Examination CHEST AP Clinical History s/p left lung biopsy ?ptx Comparison None Technique Findings There is a small hazy opacity in the left upper lung zone at the site ofthe lung biopsy, most likely representing a small amount of hemorrhage oredema. However, no pneumothorax or other major complication is seen. The lungsare otherwise clear. The cardiomediastinal silhouette appears normal. Impression No pneumothorax or other major complication. Roseanne Ureña MD IMG DX ORDERABLES * CT Biopsy-Lung/Mediastinum (07/08/2014 10:00 AM EDT) Anatomical Region Laterality Modality Computed Tomogra phy 07/08/2014 10:0 0 AM EDT Narrative 07/08/2014 11:49 AM EDT ? ; ? Procedures ?; ?? {CR} ? ; ? 1. CT GUIDED LUNG BIOPSY ?? [[id number]] ?; ?? {CR} ? ; ?? {CR} ? ; ? VIR PROCEDURE NOTE ?Procedure: ?? CT-guided left upper lobe biopsy (acc # [id number]) ?Indication: ?? SARAH mass. ?etiology. ?Technique: ?? After discussing risks (including infection, hemorrhage), and benefits of the ?? procedure, patient consented to the procedure. ?Due ?? to the painful nature of the procedure, split doses of fentanyl and versed ?? were administered by the IR nurse during continuous ?? monitoring of pulse, blood pressure and oxygen saturation. ?SARAH nodule was localized with noncontrast CT chest. Maximal sterile barrier technique ?? was used throughout the procedure. After sterile preparation overlying skin, ?? 1% lidocaine SQ was administered for anesthesia, ?? small incision was made in the skin and an 19 ga coaxial needle was advanced under CT fluoroscopic ?? guidance into the nodule. Eight 20G 1cm Core needle biopsies were performed ?? and specimens submitted for pathological analysis. Needle removed and ?? hemostasis obtained by manual compression. Patient tolerated the procedure ?? well. ?Post ?? procedure scan showed no immediate complications. ?Findings: ?? Solid small SARAH nodule yielding somewhat fragmented ?? material. ?Impression: ?? Successful CT guided SARHA lung biopsy. ? Resident/Fellow: ?? none ?I, ?? Dr. Ureña, performed the procedure ?3 ?? mg IV versed and 150 mcg IV fentanyl administered. ?10 ?? cc 1% lidocaine administered SQ. ?EBL: 0 ? ; ?? {CR} ?? Procedure Note Roseanne Ureña MD - 07/08/2014 ; Procedures ; {CR} ; 1. CTGUIDED LUNG BIOPSY [[id number]] ; {CR} ; {CR} ; VIR PROCEDURE NOTE Procedure: CT-guided leftupper lobe biopsy (acc # [id number]) Indication: SARAH mass. ?etiology.Technique: After discussing risks (including infection, hemorrhage), and benefits ofthe procedure, patient consented to the procedure. Due to the painfulnature of the procedure, split doses of fentanyl and versed were administeredby the IR nurse during continuous monitoring of pulse, blood pressure andoxygen saturation. SARAH nodule was localized with noncontrast CT chest. Maximal sterile barrier technique was used throughout the procedure. Aftersterile preparation overlying skin, 1% lidocaine SQ was administered foranesthesia, small incision was made in the skin and an 19 ga coaxial needle wasadvanced under CT fluoroscopic guidance into the nodule. Eight 20G 1cm Coreneedle biopsies were performed and specimens submitted for pathologicalanalysis. Needle removed and hemostasis obtained by manual compression. Patient tolerated the procedure well. Post procedure scan showed noimmediate complications. Findings: Solid small SARAH nodule yielding somewhat fragmented material. Impression: Successful CT guided SARAH lungbiopsy. Resident/Fellow: none I, Dr. Ureña, performed the procedure 3mg IV versed and 150 mcg IV fentanyl administered. 10 cc 1% lidocaine administered SQ. EBL: 0 ; {CR} Esa Stafford MD [facility] [place] ORDERABLES * Specimen to Pathology (NON-OR) (07/08/2014 9:10 AM EDT) AP Specimen 07/08/2014 9:10 AM EDT 07/08/2014 9:10 AM EDT Narrative JORGE ALBERTO MILLENNIUM - 07/08/2014 9:10 AM EDT Specimen requisition ordered. ??Separate Pathology report to follow Esa Stafford MD PATHOLOGY/CYTOLOGY O RDERABLES Performing Organization Address [facility] Co de Phone Number [facility] * Cytopathology Non-Gynecological (07/08/2014 8:26 AM EDT) AP Specimen 07/08/2014 8:26 AM EDT 07/08/2014 8:26 AM EDT Narrative JORGE ALBERTO SAWANTENNIUM - 07/08/2014 8:26 AM EDT Specimen requisition ordered. ??Separate Pathology report to follow Esa Stafford MD PATHOLOGY/CYTOLOGY O RDERABLES Performing Organization Address [facility] de Phone Number [facility] * Prothrombin Time (07/08/2014 7:49 AM EDT) Prothrombin Time 12.9 12.5 - 15.5 sec [facility] Comment: [facility] Transfusion Committee Guidelines: INR less than 2.0, PTT less than OR equal to 43.5 seconds, or Fibrinogen greater than or equal to 100 mg/dl indicate adequate procoagulant activity for hemostasis in patients without underlying bleeding disorders. International Normalization Ratio 0.9 0.9 - 1.1 [facility] Blood specimen (specimen) 07/08/2014 7:49 AM EDT 07/08/2014 7:53 AM EDT Narrative Resulting Agency Comment Spec In Lab Kenney Reyes MD HEMATOLOGY ORDERAB LES Performing Organization Address [facility] Co de Phone Number [facility] * Platelet count (07/08/2014 7:49 AM EDT) Platelet 245 145 - 370 x10(3)/mcL [facility] Blood specimen (specimen) 07/08/2014 7:49 AM EDT 07/08/2014 7:53 AM EDT Narrative Resulting Agency Comment Spec In Lab Kenney Reyes MD HEMATOLOGY ORDERAB LES JORGE ALBERTO BRIGHT documented in this encounter Visit Diagnoses Diagnosis Lung mass Swelling, mass, or lump in chest Lung nodule Solitary pulmonary nodule documented in this encounter Administered Medications Inactive Administered Medications - up to 3 most recent administrations Medication Order MAR Action Action Date Dose Rate Site fentaNYL 50mcg/mL injection 25-50 mcg, Intravenous, EVERY 5 MIN PRN, Starting on Halle 07/08/14 at 0807, Until Halle 07/08/14 at 0950, Pain, per unit protocol, Angio/IR (Intra-Procedure), Routine Given 07/08/2014 9:45 AM EDT 25 mcg Given 07/08/2014 9:40 AM EDT 25 mcg Given 07/08/2014 9:33 AM EDT 25 mcg midazolam (PF) (VERSED) 1 mg/mL injection 0.5-1 mg 0.5-1 mg, Intravenous, EVERY 5 MIN PRN, Starting on Halle 07/08/14 at 0807, Until Halle 07/08/14 at 0950, Anxiety, per unit protocol, Angio/IR (Intra-Procedure), Routine Given 07/08/2014 9:45 AM EDT 0.5 mg Given 07/08/2014 9:40 AM EDT 0.5 mg Given 07/08/2014 9:33 AM EDT 0.5 mg ondansetron (ZOFRAN) 4 mg/2 mL injection 1 dose, Starting on Halle 07/08/14 at 0825, Until Halle 07/08/14 at 0950, LAURA BOLAND: cabinet override Given 07/08/2014 9:50 AM EDT 4 mg documented in this encounter Care Teams Audio Tape Librarian Relationship Specialty Start Date End Date Verona Sue PA PCP - General 10/17/10 08/30/14 documented as of this encounter
--- OUTSIDE RECORDS SUMMARY | 2024-07-15 14:32 | XMS_ITS | Encounter Summary ---
Author Organization [facility] [place] [address] Care Team Providers Care Cargo Service Supervisor Name Role Phone Aurelia Bobby MD Primary Care Provider [phone] Encounter Details Date Type Department Care Team (Late st Contact Info) Description 09/01/2014 Orders Only [place] [address] Dionna Lo Social History Tobacco Use Types [...] 4:30 PM EDT Office Visit Dermatology at [facility] [address] [place] [address] Ruma Echavarria MD [facility] DR ABDIRAHMAN [place] [address] documented as of this encounter Visit Diagnoses Not on filedocumented in this encounter Care Teams Cargo Service Supervisor Relationship Specialty Start Date End Date Aurelia Bobby MD [address] [place], [place] [id number] PCP - General 08/31/14 01/23/24 documented as of this encounter
--- OUTSIDE RECORDS SUMMARY | 2024-07-15 14:32 | XMS_ITS | Encounter Summary ---
Author Organization [facility] [place] [address] Care Team Providers Care Garage Helper Name Role Phone Aurelia Bobby MD Primary Care Provider [phone] Encounter Details Date Type Department Care Team (Late st Contact Info) Description 10/15/2014 Orders Only Hematology [place] [address] Cristina Toussaint APRN [facility] HEMATOLOGY/[place] [address] Malignant neoplasm of bronchus and lung, unspecified [...] Dermatology at [facility] [address] [place] [address] Ruma Echavarria MD [facility] DR ABDIRAHMAN [place] [address] documented as of this encounter Results * PET/CT STANDARD (Skull base to Mid-thigh) (11/16/2014 10:00 AM EST) Anatomical Region Laterality Modality Other 11/16/2014 10:0 0 AM EST Impressions 11/16/2014 2:23 PM EST IMPRESSION: 1. No evidence of recurrent malignancy or metastasis. 2. Stable left adrenal adenoma. Thank you for referring this patient [facility]. This report was reviewed by Jose Jean at 11/16/2014 2:18 PM Film and interpretation reviewed by the attending Narrative 11/16/2014 2:23 PM EST EXAMINATION: PET/CT STANDARD (Skull base to Mid-thigh) CLINICAL HISTORY: LUNG CA TECHNIQUE: Procedure: Following IV injection of 76-cyqdmw-9-deoxyglucose (FDG) a standard uptake of approximately 60 [...] CA TECHNIQUE: Procedure: Following IV injection of 27-azgebf-5-deoxyglucose(FDG) a standard uptake of approximately 60 minutes, [...] adenoma. Thank you for referring this patient [facility]. This report was reviewed by Jose Jean at 11/16/2014 2:18 PM Film and interpretation reviewed by the attending Tres Graham MD IMG PET ORDERABL ES documented in this encounter Visit Diagnoses Diagnosis Malignant neoplasm of bronchus and lung, unspecified site Malignant neoplasm of bronchus and lung, unspecified site documented in this encounter Care Teams Garage Helper Relationship Specialty Start Date End Date Aurelia Bobby MD [address] [place] [address] PCP - General 08/31/14 01/23/24 documented as of this encounter
--- OUTSIDE RECORDS SUMMARY | 2024-07-15 14:32 | XMS_ITS | Clinical Summary ---
Author Organization [facility] Address [address] [place] [address] Care Team Providers Care Physical Plant Employee Name Role Phone Aurelia Bobby MD Primary Care Provider Social History Tobacco Use Types Packs/Day Years Used Date Smoking Tobacco: Never Assessed Interpersonal Safety Answer Date Record ed Physically Hurt Never 06/26/2020 Verbally Threaten Not on file 06/26/2020 Sex and Gender Information Value Date Recorded Sex Assigned at Not on file Gender Identity Not on file Sexual Orientation Not on file Plan of Treatment Health Maintenance Due Date Last Done Comments Hepatitis C Screen 1950 RSV Immunization ( o r 60+ Years) (1 - 1-dose 60+ series) 2012 Fall Risk Screening 2017 COVID-19 Vaccine (2022-24 season) 2023 Care Teams Physical Plant Employee Relationship Specialty Start Date End Date Aurelia Bobby MD PCP - General 09/25/16
--- OUTSIDE RECORDS SUMMARY | 2024-07-15 14:32 | XMS_ITS | Encounter Summary ---
Author Organization [facility] Address [address] [place] [address] Care Team Providers Care Transmitter Operator Name Role Phone Aurelia Bobby MD Primary Care Provider [phone] Encounter Details Date Type Department Care Team (Latest Contact Info) Description 08/12/2018 19:05 EDT - 08/12/2018 23:59 EDT Hospital Encounter [facility] - [address] [address] Unknown, Provider, Discharge Disposition: Home or Self Care Social History Tobacco Use Types Packs/Day Years Used Date Smoking Tobacco: Never Assessed Sex and Gender Information Value Date Recorded Sex Assigned at Not on file Gender Identity Not on file Sexual Orientation Not on file documented as of this encounter Discharge Disposition Disposition Code Departure Means Destination Home or Self Long Term documented in this encounter Plan of Treatment Not on file documented as of this encounter Visit Diagnoses Not on filedocumented in this encounter Care Teams Transmitter Operator Relationship Specialty Start Date End Date Aurelia Bobby MD PCP - General 09/25/16 documented as of this encounter
--- OUTSIDE RECORDS SUMMARY | 2024-07-15 14:32 | XMS_ITS | Encounter Summary ---
Author Organization [facility] [place] [address] Care Team Providers Care Television Receiver Analyzer Name Role Phone Verona Sue Primary Care Provider [phone] Encounter Details Date Type Department Care Team (Late Contact Info) Description 06/25/2014 Orders [place] [address] Esa Stafford MD [facility] [place] [address] Lung nodule (Primary Dx) Social History Tobacco Use Types [...] [facility] [address] [place] [address] Ruma Echavarria MD [facility] [address] [place] [address] documented as of this encounter Results * CT Biopsy-Lung/Mediastinum (07/08/2014 10:00 AM EDT) Anatomical Region Laterality Modality Computed Tomogra phy 07/08/2014 10:0 0 AM EDT Narrative 07/08/2014 11:49 AM EDT ? ; ? Procedures ?; ?? {CR} ? ; ? 1. CT GUIDED LUNG BIOPSY ?? [[id number]] ?; ?? {CR} ? ; ?? {CR} ? ; ? VIR PROCEDURE NOTE ?Procedure: ?? CT-guided left upper lobe biopsy (acc # [id number]) ?Indication: ?? SARAH mass. ?etiology. ?Technique: ?? [...] ?? material. ?Impression: ?? Successful CT guided SARAH lung biopsy. ? Resident/Fellow: ?? none ?I, ?? Dr. Ureña, performed the procedure ?3 ?? mg IV versed and 150 mcg IV fentanyl administered. ?10 ?? cc 1% lidocaine administered SQ. ?EBL: 0 ? ; ?? {CR} ?? Procedure Note Roseanne Ureña MD - 07/08/2014 ; Procedures ; {CR} ; 1. CTGUIDED LUNG BIOPSY [[id number]] ; {CR} ; {CR} ; VIR PROCEDURE NOTE Procedure: CT-guided leftupper lobe biopsy (acc # [id number]) Indication: SARAH mass. ?etiology.Technique: After discussing risks [...] EBL: 0 ; {CR} Esa Stafford MD IMG CT ORDERABLES documented in this encounter Visit Diagnoses Diagnosis Lung nodule- Primary Solitary pulmonary nodule Lung mass Swelling, mass, or lump in chest Lung nodule Solitary pulmonary nodule documented in this encounter Care Teams Television Receiver Analyzer Relationship Specialty Start Date End Date Verona Sue PA PCP - General 10/17/10 08/30/14 documented as of this encounter
--- OUTSIDE RECORDS SUMMARY | 2024-07-15 14:32 | XMS_ITS | Encounter Summary ---
Author Organization [facility] [place] [address] Care Team Providers Care Sales Promotion Manager Name Role Phone Verona Sue Primary Care Provider [phone] Reason for Visit * Reason Comments Referral Encounter Details Date Type Department Care Team (Late st Contact Info) Description 07/16/2014 11:00 AM EDT Office [place] [address] SCHEDULE 1, PFT Esa Stafford MD [facility] [place] [address] Lung nodule (Primary Dx) Discharge Disposition: Home Social History Tobacco Use Types Packs/Day Years Used Date Smoking Tobacco: Former Sex and Gender Information Value Date Recorded Sex Assigned at Female 06/08/2021 7:37 PM EDT Gender Identity Not on file Sexual Orientation Not on file documented as of this encounter Last Filed Vital Signs Vital Sign Reading Time Taken Comments Blood Pressure 145/99 07/16/2014 10:53 AM EDT Pulse 87 07/16/2014 10:53 AM EDT Temperature - - Respiratory Rate 18 07/16/2014 10:53 AM EDT Oxygen Saturation 98% 07/16/2014 10:53 AM EDT Inhaled Oxygen Concentration - - Weight 70.8 kg (156 lb) 07/16/2014 10:53 AM EDT Height 163.6 cm (5' 4.4) 07/16/2014 10:53 AM ED T Body Mass Index 26.45 07/16/2014 10:53 AM EDT documented in this encounter Patient Instructions * Patient Instructions* Yumiko Schaffer LPN - 07/16/2014 10:59 AM EDT I would like you to sign up for myD-H, which will give you secure online access to your electronic medical record at [facility] and the ability to communicate with your health care team whenand where it???s most convenient for you. With myD-H you will be able to: - look at parts of your medical record including test results and office notes - send and receive messages to/from me and your other providers - renew prescriptions - schedule appointments. To sign up, go to [email or web address] and click I have an activation code and follow the instructions. Here is your activation code: [email or web address] Expires: 08/30/2014 10:59 AM Remember, myD-H is NOT for urgent needs! Always dial 911 for medical emergencies. documented in this encounter Progress Notes * Noel Madrid - 07/16/2014 11:01 AM EDT Pulmonary Medicine Clinic Note HPI: Ms. Isaura Arellano is a 64 tear old female with a past medical history notable for tobacco abuse and hypertension. She presents to pulmonary clinic today for follow-up in the wake of a CT-guided biopsy of a left upper lobe lung nodule on 07/08/2014. 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 CXR demonstrated this lesion, leading to CT and eventual biopsy. She has a significant smoking history, roughly 45 pack years (1 PPD from age 16 to 2011). She has apersistent dry cough is noted more by her than the patient herself. She does endorse URI symptoms for about 1 week around the end of May (more productive cough). These symptoms have been fully resolved for several weeks. She denies any hemoptysis. She does not experience dyspnea with exertion and her activity is not limited by shortness of breath in any way. She has sustained about a 25 pound weight gain over the past 18-24 months, which she attributes to an increasingly sedentary lifestyle (particularly at work). 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 Both parents were heavy smokers when she was a young child. Her brother (also a smoker) at age 52 from lung cancer. In addition to her history of tobacco use, she is an intermittent marijuana smoker. Her home had a dirt foundation as a child, but her current residence has a poured foundation. Mrs. Arellano denies any fevers, chills, or night sweats. She denies any chest pain or discomfort. Remainder of ROS as below. Review of Systems General: Gradual weight gain as per HPI, denies fevers, chills, or night sweats. HEENT: No vision or hearing changes, no double vision or tinnitus, no dysphagia or oodynophagia, nosinus tenderness, no post-nasal drip, no rhinorrhea PULM: No shortness of breath, wheezing, chronic dry cough as per HPI CARDS: No chest pain or palpitations GI: No abdominal pain. No nausea, vomiting, or diarrhea. No bloody or dark/tarry stools. : No dysuria, no hematuria Musculoskeletal: Recent back pain secondary to mechanical cause as per HPI- resolved, no neck pain, no knee pain, no muscle aches Endocrine: Does endorse frequent hot flashes with flushing and diaphoresis, general intolerance of warm environments Neuro: No dizziness, passing out/LOC, no changes in sensation/numbness/tingling. No headaches. Past Medical Hisotyr: Hypertension Tobacco Abuse Degenerative joint disease (hands and hips)) Exertional asthma Past Surgical History None Current Outpatient Prescriptions Medication Sig Dispense Refill ??? sertraline (ZOLOFT) 50 mg tablet Take 75 mg by mouth daily. ??? losartan-hydrochlorothiazide (HYZAAR) 50-12.5 mg per tablet Take 1 tablet by mouth daily. Indications: Hypertension ??? hydrochlorothiazide (HYDRODIURIL) 12.5 mg tablet Take 12.5 mg by mouth daily. ??? CIS Free Text Med - Klonopin ??? CIS Free Text Med - Albuterol (Refill) ??? aspirin 325 mg tablet Allergies Allergen Reactions ??? Keflex (Cephalexin) Hives and itching Family History: Brother (smoker) of lung cancer at age 52. Father in his 70s of colon cancer. Mother of Alzheimer's in her 70s. Two sisters, one with rheumatoid arthritis and another with psoriatic arthritis. Of her two surviving brothers one has hepatitis C and another has hypertension. Social History: Former cigarette smoker. Quit 2010 after smoking 1 ppd since she was a teenager. Roughly 45 pack year history. . Has two adult children. Work's as a nurse practitioner at [facility] [facility]. Physical Exam BP 145/99 Pulse 87 Resp 18 Ht 163.6 cm (5' 4.4) Wt 70.761 kg (156 lb) BMI 26.44 kg/m2 SpO2 98% General: Overweight middle age female. Appearing stated age. Breathing easily and speaking in full sentences. Appearing comfortable and not in any acute distress. HEENT: NC/AT, EOMI, PERRL, no sinus tenderness, MMM, no oropharyngeal erythema/exudates/lesions Pulm: CTAB, good inspiratory effort, good aeration, no wheezes, rales, or rhonchi detected Lymph: No cervical lympadenopathy CVS: RRR, physiologic S1 and S2, no murmurs, rubs, or gallops appreciated.. Abdomen: Normoactive bowel sounds, non-distended, non-tender Extremities: Warm and well perfused, no peripheral edema Skin: Warm and dry, no rashes, ulcerations, or lesions, no diaphoresis Neuro: Awake, alert, and oriented x 3. Cranial nervies II-XII grossly intact. Moving all extremities spontaneously. Ambulating with normal gait. Pathology 07/08/2014-SARAH lung CT guided biopsy sample-Small focus of invasive adenocarcinoma, intermediate grade with extensive fibrosis and chronic inflammation. Imaging CT chest w/o contrast-06/24/[id number] for SARAH lesion, 16 mm in diameter. No gross regionalmetastases to lymph nodes observed. There is an indeterminate finding of a left adrenal mass Pulmonary Function Tests: FEV1, FEV1/FVC ratio, and DLCO WNL, reviewed scan doc in eD. Assessment Ms. Arellano is a 64 year old former smoker with a significant history of tobacco exposure. She presents today for follow-up s/p CT-guided biopsy of a SARAH nodule. Pathology has subsequently revealed intermediate grade adenocarcinoma. A PET-CT is pending, but there are no imaging findings to date tosuggest likely spread to local lymph nodes or distant locations. The adrenal mass seen on her May CT is likely an incidental benign finding, though if PET scan reveals glucose avidity in this area, would likely require biopsy of this area. If no new areas of concern are identified on PET, this would confirm the stage of her lung adenocarcinoma as IA. Her pulmonary function tests in clinic today were entirely within normal limits, with normal diffusion capacity. If stage IA is confirmed, the preferred treatment strategy would be left upper lobe resection with accompanying lymph node dissection. The process of diagnosing and staging lung cancer was discussed extensively with the patient and her at this encounter. Plan 1) PET-CT ordered and planned for next week 2) Cancelled ordered brain MRI 3) Plan referral to thoracic surgeon for VATs lobectomy if stage IA disease is confirmed after review of PET-CT -Emre Madrid Internal Medicine, PGY3 Pager # [phone] Patient seen in pulmonary clinic with Dr. Esa Stafford. I have seen the patient and reviewed the resident's above history and I agree with the details as written. The assessment and plan were formulated in discussion with me and I agree with them as documented. Left upper lobe nodule none known cancer, still awaiting PET scan, low likelihood of metastatic spread although there is an adrenal nodule. A long discussion regarding diagnosis, staging, and treatment of lung cancer. PET scan shows no other abnormalities, I would proceed with surgery, and have provided her with names of surgeons in [place]. We can facilitate the referral. If the adrenal lesion shows up is positive she will need an adrenal biopsy. We will wait for referrals and to have seen the results of the biopsy. documented in this encounter Plan of Treatment Upcoming Encounters Date Type Department Care Team (Late st Contact Info) Description 09/01/2024 4:30 PM EDT Office Visit Dermatology at [facility] [address] [place] [address] Ruma Echavarria MD [facility] DR [address] [address] documented as of this encounter Visit Diagnoses Diagnosis Lung nodule- Primary Solitary pulmonary nodule documented in this encounter Care Teams Sales Promotion Manager Relationship Specialty Start Date End Date Verona Sue PA PCP - General 10/17/10 08/30/14 documented as of this encounter
--- OUTSIDE RECORDS SUMMARY | 2024-07-15 14:33 | XMS_ITS | Patient Health Record ---
Author Organization [facility] Address [address] [place] [address] Care Team Providers Care Steward/Stewardess Club Car Name Role Phone YULY BURNS Primary Care Provider Unavailab Yasmin Bennett [phone] REASON FOR REFERRAL No Information MEDICATIONS Medication SIG (Take, Route, Frequency, Duration) Notes Start Date End Date Status Vitamin C 500 MG 1 tablet Orally Once a day for 30 day(s) Active Magnesium Oxide 500 MG 2 capsules at bed time as needed Orally Once a day for 30 day(s) Active clonazePAM 0.5 MG as directed Orally a s needed Active Estradiol 10 MCG 1 tablet Vaginal Two times a Week for 30 day(s) Active Vitamin D3 50 MCG (2000 UT) 1 capsule Or ally Once a day for 30 day(s) Active traMADol HCl 50 MG 1 tablet as needed Orally Once a day PRN Active Riboflavin 100 MG 2 tablets Orally Onc e a day Active Sertraline HCl 25 MG 1 tablet Orally Onc e a day for 30 day(s) Active valACYclovir HCl 500 MG 1 tablet Orally Once a day for 10 day(s) Active Levothyroxine Sodium 50 MCG 1 tablet in the morning on an empty stomach Orally Once a day for 30 day(s) Active Ibuprofen 600 MG 1 tablet with food o r milk as needed Orally Three times a day PRN Active Acetaminophen 500 MG 1 capsule as needed Orally every 6 hrs PRN Active Fluticasone-Salmeterol 500-50 MCG/DOSE 1 puff Inhalation Twice a day Active Albuterol Sulfate HFA 108 (90 Base) MCG/ACT 1 puff as needed Inhalation every 4 hrs Active Vitamin B 12 500 MCG 1 tablet Orally Onc e a day for 30 day(s) Active SOCIAL HISTORY Tobacco Use: Social History Observation Description Date Details (start date - stop date) Never Smoker NA - NA Sex Assigned At : Social History Observation Description Sex Assigned At Unknown SMOKING Question Answer Notes Are you a: nonsmoker PROBLEMS Problem Type ICD Code Onset Dates Problem Status W/U Status Risk SNOMED Code Notes Problem Constipation (K59.00) Active confirmed Constipation (08808780) Problem ADD (attention deficit disorder) (F90.9) Active confirmed Attention defic it disorder (04362512) Problem Hammer toe of left foot (M20.42) Active confirmed 047217233 Problem Chronic depression (F32.9) Active confirmed Chronic depress ion (405750218) Problem Anorexia (R63.0) Active confirmed Anore yanet (38596168) Problem Adenocarcinoma (C80.1) Active confirmed Adenocarcinoma (657491037) Problem Hammer toe of right foot (M20.41) Active confirmed 959877067 Problem Abnormal auditory perception (H93.299) Active confirmed Abnormal audito ry perception (91095966) Problem Acute right hip pain (M25.551) Active confirmed Arthralgia of the pelvic region and thigh (350649371) Problem Cervical lesion (N88.9) Active confirmed Noninflammatory cervical disorder (853450609) PLAN OF TREATMENT Future Test Test Name Order Date POD Foot, R 3V (POD4) 07/20/2020 X Foot R 3V 12/15/2020 Insurance Providers Payer Name Payer Address Payer Phone Subscriber Number Group Number Insured Name Patient Relationship to Insured Coverage Start Date Coverage End Date MEDICARE [address] [place], [place] [id number] [place] MORGAN Self - patient is the insured S-MEDICOMP OF [address] [id number] ^[place] [id number] [place] MORGAN Self - patient is the insured [place] [address] [place] MORGAN Self - patient is the insured MEDICAL (GENERAL) HISTORY Medical History History ICD Code Abnormal auditory perception H93.299 Acute right hip pain M25.551 Adenocarcinoma C80.1 ADD (attention deficit disorder) F90.9 Anorexia R63.0 Cervical lesion N88.9 Constipation K59.00 Chronic depression F32.9 ganglion cyst of right knee, resloved fracture of radius, resloved Depression F32.9 Migraine headache G43.909 Carpal tunnel syndrome G56.00 Tinnitus H93.19 Surgical History Surgery Date(Month/Year) carel tunnel relsease, right had ganglion right knee breast reduction tubal ligation left shoulder, removel of part of the cl avical upper left left lung lumpectomy for canc er 2013 Appendectomy Colonoscopy-IV sedation EGD 2017 Reduction Mammoplasty 1989 CTR left 02/03/2020 Right hip injection 02/03/2020 Arthodesis,proximal interphalangeal join t right 4th toe,[facility], [place] 07-07-2020
--- OUTSIDE RECORDS SUMMARY | 2024-07-15 14:33 | XMS_ITS | Encounter Summary ---
Author Organization [facility] Address [address] [place] [address] Care Team Providers Care Paper Mill Manager Name Role Phone Elizabeth Arce MD Primary Care Provider [phone] Encounter Details Date Type Department Care Team (Late st Contact Info) Description 09/13/2015 Results Only [facility] [phone] Artemio Priest MD [address] [place] [address] [place] [address] Social History Tobacco Use Types [...] Date/Time Associated Diagnosis Comments SURGICAL PATHOLOGY Routine 09/13/2015 8:59 EDT documented in this encounter Results * SURGICAL PATHOLOGY (09/13/2015 8:59 EDT) Pathology Report: SURGICAL PATHOLOGY REPORT Reports generated via electronic interface contain original data; however they are lacking the format of the original report. Caution should be taken when reading/interpret ing unformatted reports. Name: ? ISAURA MORGAN ? Accession #: ? [id number] ? : ? 1950 (Age: 65) ??F ? Collect Date: ? 09/13/2015 ? Location: ? [facility] ? Receive Date: ? 09/14/2015 ? Provider: ARTEMIO PRIEST MD Copy to: YULY BURNS MD ? Final Pathologic Diagnosis: A. PREPATELLAR BURSA, BIOPSY: - ??Fragments of unremarkable fibroadipose tissue. B. HOFFA'S FAT PAD, BIOPSY: - ??Ganglion cyst. Document reviewed and electronically signed by: ALMA LAKE MD Report ??Date: 09/15/2015 16:26 By the signature above, the attending physician certifies that he/she has personally conducted a gross and/or microscopic examination of the described specimens and rendered or confirmed the above diagnosis. Specimen(s) Received: A. ?Prepatellar bursa B. ? Ganglion cyst of Hoffa's fat pad Clinical History: Painful R knee with mass over pre-patellar bursa and abnormal MRI of medial Hoffa's fat pad Gross Description: A. ?Received in formalin labelled with proper patient identification (initials R, E) and 1. pre-patellar bursa are several urena-white focally light yellow membranous and fibrofatty pieces of tissue (3.0 x 2.5 x 0.4 cm in aggregate). Some of the surfaces are smooth, and there are no discrete nodules. Four ambulatory services representative sections are submitted in A1 and A2. B. ?Received in formalin labelled with proper patient identification (initials R, E) and 2. ganglion cyst of Hoffa's fat pad is a portion of fibrofatty tissue (5.0 x 1.8 x 1.7 cm). ??One side of the specimen is covered by smooth collins-white focally light yellow membranous-like tissue (over an area 4.5 x 1.7 cm and with a thickness of 0.1 cm). There is no material attached to this membranous-like tissue and sections reveal no discrete nodules. ??Two ambulatory services representative sections of the specimen are submitted in B1 and B2. Ciro Streeterika 09/14/2015 10:37 AM End of Report [facility] 09/13/2015 8:59 EDT 09/14/2015 8:59 EDT Artemio Priest MD PATHOLOGY ORDERABLE S Performing Organization Address City/State/[facility] Co de Phone Number [facility] [address] [place] [address] documented in this encounter Visit Diagnoses Not on filedocumented in this encounter Care Teams Paper Mill Manager Relationship Specialty Start Date End Date Elizabeth Arce MD [address] [place] [address] PCP - General 08/31/09 09/24/16 documented as of this encounter
--- OUTSIDE RECORDS SUMMARY | 2024-07-15 14:33 | XMS_ITS | Encounter Summary ---
Author Organization [facility] Address [address] [place] [address] Care Team Providers Care Purse Maker Name Role Phone Unknown, Provider Primary Care Provider [phone] Encounter Details Date Type Department Care Team (Late st Contact Info) Description 08/15/2009 Orders Only [facility] Services - [facility] ([facility] [address] [place] [address] Carola uSe PA Social History Tobacco Use Types Packs/Day Years Used Date Smoking Tobacco: Never Assessed Sex and Gender Information Value Date Recorded Sex Assigned at Not on file Gender Identity Not on file Sexual Orientation Not on file documented as of this encounter Plan of Treatment Not on file documented as of this encounter Procedures Procedure Name Priority Date/Time Associated Diagnosis Comments HPV DETECTION, HIGH RISK TYPES Routine 08/15/2009 14:18 EDT CYTOPATHOLOGY Routine 08/15/2009 0:00 EDT documented in this encounter Results * HUMAN PAPILLOMA VIRUS DNA TEST (08/15/2009 14:18 EDT) Specimen Description Cervix, ThinPrep vial [facility] Result Negative for HPV types 16, 18, 31, 33, 35, 39, 45, 51, 52, 56, 58, 59, and 68. [facility] Report Status Final 08/25/2009 [facility] 08/15/2009 14:1 8 EDT 08/23/2009 14:18 EDT Carola BELLAMY MICROBIOLOGY - GENER AL ORDERABLES [facility] [address] [place] [address] * CYTOPATHOLOGY (08/15/2009 0:00 EDT) Pathology Report: CYTOPATHOLOGY REPORT ? Reports generated via electronic interface contain original data; ? however they are lacking the format of the original report. ? Caution should be taken when reading/interpreti ng unformatted reports. ? Name: ? ISAURA MORGAN ? Accession #: ? [id number] ? : ? 1950 (Age: 59) ??F ?Collect Date: ? 08/15/2009 ? Location: ? [facility] ? Receive Date: ? 08/15/2009 ? Provider: ?CAROLA YEYO PA ? Copy to: ? Specimen/Source: ?Pap Test, Cervix/Endocervix, ThinPrep Imaging System ? with manual evaluation ? Last Menstrual Period: ? NIGHT COURT MAGISTRATE ? Hormonal/Contracep tive Status: ? Yes: Estrace Cream ? Other: ? HPVDX - HPV testing requested regardless of diagnosis on current ThinPrep Pap ?? test. ? SPECIMEN ADEQUACY ? Satisfactory for Evaluation ? - transformation zone component present ? GENERAL CATEGORIZATION ? Negative for Intraepithelial Lesion or Malignancy ? Document reviewed and electronically signed by: ? WILLIAM Willard(ASCP) ? Report Date: ??08/22/2009 13:33 ? End of Report ? [facility] 08/15/2009 08/15/2009 Carola BELLAMY PATHOLOGY ORDERABLES [facility] [address] [place] [address] documented in this encounter Visit Diagnoses Not on filedocumented in this encounter Care Teams Purse Maker Relationship Specialty Start Date End Date Unknown, Provider, PCP - General 08/15/09 08/30/09 documented as of this encounter
--- OUTSIDE RECORDS SUMMARY | 2024-07-15 14:33 | XMS_ITS | Encounter Summary ---
Author Organization [facility] Address [address] [place] [address] Care Team Providers Care [employer] Sales Agent Name Role Phone Unknown, Provider Primary Care Provider Encounter Details Date Type Department Care Team (Late st Contact Info) Description 08/29/2009 Orders Only [facility] - [facility] [place] [address], [place] [address] Isaura Gutierrez MD [address] [place] [address] [place] [address] Social History Tobacco Use Types Packs/Day Years Used Date Smoking Tobacco: Never Assessed Sex and Gender Information Value Date Recorded Sex Assigned at Not on file Gender Identity Not on file Sexual Orientation Not on file documented as of this encounter Plan of Treatment Not on file documented as of this encounter Procedures Procedure Name Priority Date/Time Associated Diagnosis Comments SURGICAL PATHOLOGY Routine 08/29/2009 0:00 EDT documented in this encounter Results * SURGICAL PATHOLOGY (08/29/2009 0:00 EDT) Pathology Report: SURGICAL PATHOLOGY REPORT ? Reports generated via electronic interface contain original data; ? however they are lacking the format of the original report. ? Caution should be taken when reading/interpreti ng unformatted reports. ? Name: ? MORGAN, IASURA ? Accession #: ? [id number] ? : ? 1950 (Age: 59) ??F ? Collect Date: ? 08/29/2009 ? Location: ? [facility] ? Receive Date: ? 08/29/2009 ? Provider: ISAURA ANISH MD ? Copy to: CAROLA YEYO PA ? Final Pathologic Diagnosis: ? Submitted as cervical lesion, excision: ? - ??Fragments of a benign leiomyoma. See comment. ? Comment: ? The leiomyoma demonstrates an epithelial lining that is composed of both ?? atrophic squamous epithelium and endocervical epithelium. Thus, this lesion may represent a leiomyoma of cervical origin. This case has been reviewed at the ? intradepartmental consensus conference. (Dr. Bacon)/mpl ? Document reviewed and electronically signed by: ? ANKUR BACON MD ? Report ??Date: 08/31/2009 17:13 ? By the signature above, the attending physician certifies that he/she has ? personally conducted a gross and/or microscopic examination of the described ? specimens and rendered or confirmed the above diagnosis. ? Specimen(s) Received: ? Endocx lesion ? Clinical History: ? Cervical lesion; ? prolapsed fibroid; LMP: 10 yrs ago ? Gross Description: ? Received in formalin labelled Morgan, Isaura and cervical lesion is a single 2.0 x 1.2 x 0.7 cm white-collins, firm, pedunculated tissue. ??The resection ?? margin is inked black. ??Sectioning reveals a collins-white, whorled cut surface, ? without hemorrhage or necrosis. ??The trisected specimen is entirely submitted as (A1) and (A2). ??(Onel Timmons)/jordyn ? End of Report ? [facility] 08/29/2009 08/29/2009 17: 22 EDT Isaura Gutierrez MD PATHOLOGY ORDERABLES [facility] [address] [place] [address] documented in this encounter Visit Diagnoses Not on filedocumented in this encounter Care Teams [employer] Sales Agent Relationship Specialty Start Date End Date Unknown, Provider, PCP - General 08/15/09 08/30/09 documented as of this encounter
--- NOTE | 2024-07-16 08:58 | NUR.NOTE ---
Patient called asking if she could take asa for a headache, and benadryl for flushing. Advised her that she can do that, but to return to the ED if sx persist or there is respiratory compromise.
== END 2024-07-15 15:55 | disposition home or self-care (01) ==
PROVIDERS: Emergency Provider Emergency Medicine; PCP Nurse Practitioner Family
DX: T78.2XXA Anaphylactic shock, unspecified, initial encounter (principal); R22.0 Localized swelling, mass and lump, head
CPT/HCPCS: 80053; 96361; 96374; 96375; 99284; 85025; 99283; J0171; J1100

== ENCOUNTER 2024-09-01 03:07 | Outpatient (CLI) | payer MEDICARE, BC, SELFPAY ==
[2024-09-04 12:53] LABS: Cat Epithelium IgE <0.10 kU/L (<0.70); Cladosporium IgE <0.10 kU/L (<0.70); Cocklebur IgE <0.10 kU/L (<0.70); Dog Dander IgE <0.10 kU/L (<0.70); Epicoccum purpurascens IgE <0.10 kU/L (<0.70); Lamb's Quarter IgE <0.10 kU/L (<0.70); Short Ragweed IgE <0.10 kU/L (<0.70); Timothy Grass IgE <0.10 kU/L (<0.70); Wormwood IgE <0.10 kU/L (<0.70)
[2024-09-04 15:15] LABS: Alternaria Tenuis IgE <0.10 kU/L (<0.70); Aspergillus Fumigatus IgE <0.10 kU/L (<0.70); Banana, IgE <0.10 kU/L (<0.70); Bermuda Grass IgE <0.10 kU/L (<0.70); Cockroach IgE <0.10 kU/L (<0.70); D Farinae IgE <0.10 kU/L (<0.70); D Pteronyssinus IgE <0.10 kU/L (<0.70); Eastern Sycamore IgE <0.10 kU/L (<0.70); Elm IgE <0.10 kU/L (<0.70); Fusarium moniliforme, IgE <0.10 kU/L (<0.70); Giant Ragweed IgE <0.10 kU/L (<0.70); Oak IgE <0.10 kU/L (<0.70); Penicillium chrysogenum IgE <0.10 kU/L (<0.70); Red Sorrel IgE <0.10 kU/L (<0.70); Rough Pigweed IgE <0.10 kU/L (<0.70); Silver Birch IgE <0.10 kU/L (<0.70); Stemphyllium IgE <0.10 kU/L (<0.70); Walnut Tree IgE <0.10 kU/L (<0.70)
[2024-09-04 16:38] LABS: Cottonwood IgE <0.10 kU/L (<0.70); Kiwi Fruit IgE <0.10 kU/L (<0.70)
[2024-09-07 10:54] LABS: CLASS 0; Cedar Red IgE <0.10 kU/L (<0.35); Rhodotorula IgE <0.35 kU/L (<0.35)
== END 2024-09-01 03:08 | disposition home or self-care (01) ==
LOC: LBO 03:07
PROVIDERS: PCP Nurse Practitioner Family; Visit Provider Physician Assistant
DX: T78.2XXA Anaphylactic shock, unspecified, initial encounter (principal); Z91.09 Other allergy status, other than to drugs and biological substances; R06.2 Wheezing
CPT/HCPCS: 36415; 86003

== ENCOUNTER 2025-02-02 08:40 | Emergency (ER) | payer MEDICARE, BC, SELFPAY ==
[2025-02-02] VITALS (38 sets, daily range): BP systolic 121–184; BP diastolic 50–108; PULSE 64–90; RESP 12–25; TEMP 36.4; O2SAT 92–96
--- NOTE | 2025-02-02 08:45 | ED.GENADUL_ITS ---
Discharge Plan Disposition Patient Disposition: Home Discharge Details Clinical Impression: Multiple closed fractures of ribs of right side, Forehead laceration Primary Care Provider: Tamera Jensen ED Provider: Salvador Mukherjee [place] Meds and New Rx's Prescriptions: New lidocaine [Lidoderm] 5 % adhesive patch,medicated 1 patch topical DAILY Qty: 15 0RF Rx Instructions: leave on most painful area for up to 12 hrs Continued albuterol sulfate [Ventolin HFA] 90 mcg/actuation HFA aerosol inhaler 2 puff IH QID PRN (Reason: shortness of breath or wheezing) Qty: 18 7RF valacyclovir 500 mg tablet 500 mg PO BID PRN (Reason: herpes) Qty: 42 11RF cholecalciferol (vitamin D3) 50 mcg (2,000 unit) capsule 50 mcg PO DAILY vitamin B complex Tablet 1 tab PO DAILY PRN Trelegy Ellipta 100-62.5-25 mcg blister with device 1 inh inhalation DAILY 90 Days Qty: 60 12RF aspirin 81 mg tablet,delayed release (DR/EC) 81 mg PO DAILY Qty: 1 0RF sertraline 50 mg tablet 75 mg PO DAILY Qty: 135 4RF clonazepam 0.5 mg tablet 0.5 mg PO .COMPLEX MDD 3 PRN (Reason: anxiety) Qty: 270 1RF Patient Comments: pt. states she took 0.25 mg today Rx Instructions: 0.5 mg PO BID and HS, prn levothyroxine 50 mcg tablet 50 mcg PO DAILY Qty: 90 11RF albuterol sulfate 2.5 mg /3 mL (0.083 %) solution for nebulization 2.5 mg inhalation QID PRN (Reason: shortness of breath or wheezing J44.9) Qty: 75 0RF clobetasol 0.05 % ointment See Rx Instructions .ROUTE .COMPLEX Qty: 60 2RF Dose Instruction: APPLY TO AFFECTED AREA(S) TWO TIMES A DAY Rx Instructions: APPLY TO AFFECTED AREA(S) TWO TIMES A DAY estradiol [Estrace] 0.01 % (0.1 mg/gram) cream 1 appful vaginal DAILY Qty: 42.5 3RF diphenhydramine HCl 25 mg capsule 25 mg PO DIRECTED PRN mupirocin 2 % ointment 1 applic topical TID triamcinolone acetonide 0.025 % cream 1 applic topical DAILY epinephrine [EpiPen 2-Santhosh] 0.3 mg/0.3 mL auto-injector 0.3 mg IM ONCE Qty: 2 0RF Rx Instructions: as a single dose; may repeat once Discharge Instructions Additional Instructions: You are seen in the emergency department for your fall. You are found to have fractures of multiple ribs on your left side for which he received a nerve block with anesthesia. Please take this pain medicine as directed and do not drive or drink alcohol after taking the medication. If you do take more than 1 of these pain medications please begin taking MiraLAX as opiates can make you constipated. Please return to the emergency department if you develop worsening pain any streaking signs of infection near your forehead laceration or if you have any other concerns. The Steri-Strips will fall off on their own after several days. Discharge Data Discharge Date/Time-TO BE ENTERED AT DEPARTURE: 02/02/25 15:32 HPI General Date/Time Provider Initiated Documentation: 02/02/25 08:45 . HPI Narrative: MDM Primary survey intact. Reassuring shock index on secondary survey has right greater than left-sided chest wall tenderness and right forehead laceration which was hemostatic and which will close with Steri-Strips. Given age head strike chest wall tenderness and concern for intracranial hemorrhage and rib fractures will obtain CT head without contrast and CT chest without contrast. Patient has no midline cervical spinal tenderness based on Nexus criteria no indication for CT cervical spine. Per Nexus criteria, cervical CT not obtained. The patient had no c-spine midline tenderness, no evidence of intoxication, was AAOx3, had no focal neurological deficits, and no painful distracting injuries. No midline thoracic nor lumbar spinal tenderness so we will defer reconstructions. Soft nontender abdomen so I am not concern for intra-abdominal injury so I did not order CT abdomen with IV contrast. Based on the duration of time since patient's injury anterior reassuring shock index so I am not concerne d for aortic disruption and I did not feel the patient required a contrast study of her chest. No preceding syncope to suggest PE nor ACS. No focal neurological deficits to suggest CVA. Patient has been ambulatory so my suspicion was low for pelvic fracture. 1:45 PM Patient was found to have 4 right-sided rib fractures for which I consulted anesthesia to complete an erector spinae block. She received oral morphine but had anaphylaxis last year in the setting of exposure to acetaminophen amongst other medications so we will hold acetaminophen. She also takes aspirin every day so we will defer ketorolac. 3 PM I met with the patient again after anesthesia provided an erector spinae block. Patient felt mildly improved. She was able to pull 1500 cc on her incentive spirometry. She has been evaluated by general surgery who felt she did not require admission. Patient was to go home. Will discharge her with morphine as she was reluctant to try acetaminophen again given her anaphylaxis last year when she took acetaminophen cephalexin and codeine. I advised that her acetaminophen was the least likely to cause this reaction but she felt that she had additional pain remedies at home with her Arnica and CBD. She was evaluated by general surgery Dr. Tucker who advised discharge. Will treat with Lidoderm patches. Advised patient that if she develop strict signs of infection near her forehead laceration or if she developed any worsening pain or difficulty breathing that she should return to the ED. She understood her return indications discharged with an empiric trial of outpatient expectant management. HPI This is a 74-year-old female who is not on any anticoagulants or any emergency department via private vehicle following a fall. Patient reports that at 2 AM this morning she was reaching for a water bottle which was too far away from her. She fell out of her bed striking her hoahaoism on the corner of her nightstand and the right side of her chest on her bed frame. She denies loss of consciousness. She is taken nothing out for the pain. She denies any preceding chest pain dizziness. She has not been vomiting but has occasionally felt nauseous. No preceding dysuria or frequency. She reports that she has been on sternal laceration prior to arrival. Exam General: Well-appearing in no acute distress speaking in complete sentences. Head: Normocephalic. On the right side of the patient's forehead on her temples she has a hemostatic approximately 1 and half centimeter laceration. Eye:[Pupils equal, round reactive to light.] Extraocular eye movements intact. No conjunctival injection. No scleral icterus. Ear, nose, mouth, throat: Grossly normal inspection. Normal voice, handling secretions normally. Neck: Trachea midline. Cardiovascular: Well-perfused distal extremities. Regular rate and rhythm. Respiratory: Nonlabored respiration. Clear lungs bilaterally with equal breath sounds. Gastrointestinal: Nondistended abdomen. Soft nontender. No rebound. No guarding. Back: No step-offs no deformities. No midline thoracic spinal nor lumbar spinal tenderness. Musculoskeletal: No edema. Moving all 4 extremities spontaneously. Skin: Normal for age and race, grossly normal temperature and turgor. No acute rash. Neurologic: Alert and appropriate, no apparent acute deficits. GCS 15. Psychiatric: Mood and manner are appropriate. Grooming and personal hygiene are appropriate. Related Data Home Medications ?Medication ?Instructions ?Recorded ?Confirmed aspirin 81 mg tablet,delayed 81 mg PO DAILY #1 tab 06/19/21 02/02/25 release cholecalciferol (vitamin D3) 50 50 mcg PO DAILY 05/07/22 02/02/25 mcg (2,000 unit) capsule albuterol sulfate 90 mcg/actuation 2 puff inhalation QID PRN 09/11/22 02/02/25 aerosol inhaler (Ventolin HFA) shortness of breath or wheezing #18 grams valacyclovir 500 mg tablet 500 mg PO BID PRN herpes #42 tabs 09/11/22 02/02/25 sertraline 50 mg tablet 75 mg (1.5 x 50 mg) PO DAILY #135 07/30/23 02/02/25 tabs clonazepam 0.5 mg tablet 0.5 mg PO .COMPLEX PRN anxiety 10/09/23 02/02/25 #270 tabs levothyroxine 50 mcg tablet 50 mcg PO DAILY #90 tab-caps 10/14/23 02/02/25 albuterol sulfate 2.5 mg/3 mL 2.5 mg (3 mL) inhalation QID PRN 11/01/23 02/02/25 (0.083 %) solution for nebulization shortness of breath or wheezing J44.9 #75 mL clobetasol 0.05 % topical ointment See Rx Instructions .Route 01/13/24 02/02/25 .COMPLEX #60 grams fluticasone fur. 100 mcg-umeclid 1 inh inhalation DAILY 90 days #60 04/16/24 02/02/25 62.5 mcg-vilant 25 mcg ea inhalat.powder (Trelegy Ellipta) vitamin B complex 1 tab PO DAILY PRN 04/16/24 02/02/25 estradiol 0.01% (0.1 mg/gram) 1 appful vaginal DAILY #42.5 grams 06/16/24 02/02/25 vaginal cream (Estrace) epinephrine 0.3 mg/0.3 mL 0.3 mg (0.3 mL) IM ONCE #2 ea 07/15/24 02/02/25 injection, auto-injector (EpiPen 2-Santhosh) diphenhydramine HCl 25 mg capsule 25 mg PO DIRECTED PRN 07/28/24 02/02/25 mupirocin 2 % topical ointment 1 applic topical TID 07/28/24 02/02/25 triamcinolone acetonide 0.025 % 1 applic topical DAILY 07/28/24 02/02/25 topical cream lidocaine 5 % topical patch 1 patch topical DAILY #15 ea 02/02/25 (Lidoderm) Previous Rx's ?Medication ?Instructions ?Recorded aspirin 81 mg tablet,delayed 81 mg PO DAILY #1 tab 06/19/21 release albuterol sulfate 90 mcg/actuation 2 puff inhalation QID PRN 09/11/22 aerosol inhaler (Ventolin HFA) shortness of breath or wheezing #18 grams valacyclovir 500 mg tablet 500 mg PO BID PRN herpes #42 tabs 09/11/22 sertraline 50 mg tablet 75 mg (1.5 x 50 mg) PO DAILY #135 07/30/23 tabs clonazepam 0.5 mg tablet 0.5 mg PO .COMPLEX PRN anxiety 10/09/23 #270 tabs levothyroxine 50 mcg tablet 50 mcg PO DAILY #90 tab-caps 10/14/23 albuterol sulfate 2.5 mg/3 mL 2.5 mg (3 mL) inhalation QID PRN 11/01/23 (0.083 %) solution for nebulization shortness of breath or wheezing J44.9 #75 mL clobetasol 0.05 % topical ointment See Rx Instructions .Route 01/13/24 .COMPLEX #60 grams fluticasone fur. 100 mcg-umeclid 1 inh inhalation DAILY 90 days #60 04/16/24 62.5 mcg-vilant 25 mcg ea inhalat.powder (Trelegy Ellipta) estradiol 0.01% (0.1 mg/gram) 1 appful vaginal DAILY #42.5 grams 06/16/24 vaginal cream (Estrace) epinephrine 0.3 mg/0.3 mL 0.3 mg (0.3 mL) IM ONCE #2 ea 07/15/24 injection, auto-injector (EpiPen 2-Santhosh) lidocaine 5 % topical patch 1 patch topical DAILY #15 ea 02/02/25 (Lidoderm) Allergies Allergy/AdvReac Type Severity Reaction Status Date / Time propofol AdvReac Severe Other (See Verified 02/02/25 08:49 Comment) gabapentin AdvReac Intermediate Made me Verified 02/02/25 08:49 crazy lisinopril AdvReac Intermediate cough Verified 02/02/25 08:49 Qtajdis-LTF-SwQ Reductase AdvReac Unknown Unknown Unverified 02/02/25 08:49 Inhibitor tiotropium (From Stiolto AdvReac Unknown Unknown Unverified 02/02/25 08:49 Respimat) alcaftadine (From Lastacaft) AdvReac Other (See Verified 02/02/25 08:49 Comment) verapamil Allergy Severe severe Uncoded 02/02/25 08:49 constipation General RASHEED: 2 Procedure Laceration Laceration 1: Date of Procedure: 02/02/25 Time of procedure: 09:00 Patient Consented: Verbally Site: face Description: linear Depth: simple, single layer Skin layer closed with: other (3 Steri-Strips) Procedure Description/Note: Patient's nurse Winnie applied 3 Steri-Strips to the patient's wound on her forehead. Medical Decision Making Quality:SDOH Health Related Social Needs: No Data to Display PFSH All Active Problems (Updated 02/02/25 @ 15:13 by Salvador Mukherjee MD) Forehead laceration (Acute) Multiple closed fractures of ribs of right side (Acute) Anaphylactic reaction (Acute) Wheezing (Acute) Environmental allergies (Acute) Left ankle injury (Acute 12/29/23) COVID (Acute) Vulvar dystrophy (Acute) Acquired skin tag (Acute) Rash (Acute) Lichen planus (Acute) Oral mucosal lesion (Acute) Episodic lightheadedness (Acute) Tendinopathy of right biceps tendon (Acute) Trigger finger, left ring finger (Acute) Right rotator cuff tendinitis (Acute) Right shoulder pain (Acute) Contusion of right elbow (Acute) Effusion, right elbow (Acute) Coronary artery disease (Chronic) Constipation (Acute) Rectal bleeding (Acute) Cluster headache syndrome (Acute) Headache (Acute) Sinus pain (Acute) Chronic pain syndrome (Chronic) Degenerative joint disease of left hip (Chronic) COPD (chronic obstructive pulmonary disease) (Chronic) Foot arch pain (Acute) Weakness (Acute) Abnormal nuclear stress test (Acute) ST segment changes on electrocardiogram (Acute) Syncope (Chronic) Adductor tendinitis of right hip (Acute) History of carpal tunnel surgery of right wrist (Acute) S/P R ECTR DOS: 05/19/19 Vaginal atrophy (Acute) Pneumonia (Acute) Left carpal tunnel syndrome (Acute) Polyp of duodenum (Acute ~01/28/20) Sensorineural hearing loss (SNHL) of both ears (Acute) Migraine headache without aura (Acute) Hypertension (Chronic 09/09/14) pt. denies this Depression (Chronic) hospitalization w/ ect and medication 12/2018 Tinnitus (Chronic 05/13/14) Post-concussion headache (Chronic 08/03/15) Hypothyroidism (Chronic 07/19/17) Functional memory problem (Chronic 04/21/15) Abnormal auditory perception (Chronic 03/02/14) NEAL ADD (attention deficit disorder) (Chronic 09/06/16) Family history of colon cancer in father (Acute) Constipation (Acute) Medical History Near syncope Shortness of breath Chronic hip pain Tinnitus Fever Tick bite Myalgia Syncope Sprain of right little finger Right carpal tunnel syndrome S/P ECTR Primary osteoarthritis of right hip Injection under fluro: 05/19/19 Ganglion cyst right knee Smoker 11/25/84 Fracture of radius 10/24/04 left H/O reduction of closed fracture 11/25/04 left radius Cervical lesion 08/24/0909/02 cervical leiomyoma removed at [facility] Impetigo 03/02/14 Acute right hip pain 03/12/16 Cough 10/08/16 Rhinitis (09/02/14) Depressive disorder (10/24/84) history of kee Anorexia Nausea alone Unintentional weight loss Hx of stroke without residual deficits Surgical History History of total right hip replacement (03/21/21) H/O section Hx of appendectomy Hx of breast reduction, elective 11/25/89 H/O excision of ganglion cyst 09/13/15 History of esophagogastroduodenoscopy (EGD) (~07/2018) section Fracture, Closed Treatment (~2004) left radius Excision of left distal clavicle (10/17/16) Dr. Patel EXCISION OF GANGLION CYST (09/13/15) DR. PATEL; RIGHT KNEE Colonoscopy - IV Sedation (09/19/16) Last Colonoscopy 08/12- hyperplastic polyp Reduction mammoplasty (~1989) Appendectomy Family History Father Personal history of malignant neoplasm colon Son No problems noted. Brother No problems noted. Other Family history of colon cancer in father Social History Smoking/Tobacco Use Status: Former Tobacco Use Quit Date: 11/25/79 Second Hand Exposure: Yes Smoking risk assessment performed?: Yes Alcohol Intake: current Alcohol Intake frequency: a few times a month Alcohol type: beer, wine and hard liquor Drug use: Occasionally Substance use type: marijuana Details: alcohol: t-1, fifty ml. marijuana: tinctures Household members: spouse Housing: house Do you need help understanding health information?: Rarely Pets and animals: Yes Pets and animals: cat(s) and dog(s) Sexually active: No Do you think of yourself as: straight/heterosexual Current gender identity: female What is your relationship status?: How often do you talk on the phone with friends or family?: twice per week How often do you get together with friends or relatives?: twice per week Do you belong to any clubs or organized social groups?: yes Panel score (0-1 are the most socially isolated patients): 3 What type of physical activity do you participate in: walking and yoga Duration: 30-45 minutes/day Frequency: daily Birgit/Orthodox: No preference Seatbelt use: always 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
--- NOTE | 2025-02-02 09:00 | DI.CT_ITS ---
Exam(s) CT HEAD WO EXAM: CT HEAD WO CLINICAL HISTORY: fall head strike. TECHNIQUE: Imaging Protocol: Axial computed tomography images with coronal and sagittal reformatted images were created and reviewed COMPARISON: CT CT SINUS WO from 02/28/[address] HEAD WO from 05/09/2022 FINDINGS: Ventricles and Extra axial spaces: Normal in size and morphology for the patient's age. Hemorrhage: None. Cerebral parenchyma: There is an old lacunar infarct in the right thalamus. No evidence of an acute territorial infarct. No acute mass effect. There are areas of decreased attenuation in the white ma tter consistent with chronic microvascular ischemic disease. Midline shift: None. Brainstem/Cerebellum: Normal. Calvarium: Normal. 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 Visualized Paranasal sinuses/Mastoids: Clear. Soft Tissues: Unremarkable. IMPRESSION: No acute intracranial process. RADIATION DOSE DELIVERED: 844.76mGy.cm Total DLP DATA REPOSITORY: All CT scans at this facility are submitted to the National Radiology Data Registry (NRDR) Dose Index Registry (DIR) with the [employer] (ACR). RADIATION OPTIMIZATION: All CT scans at this facility use at least one of these dose optimization te chniques: automated exposure control; mA and/or kV adjustment per patient size (includes targeted exa ms where dose is matched to clinical indication); or iterative reconstruction.
--- NOTE | 2025-02-02 09:00 | DI.CT_ITS ---
Exam(s) CT CHEST WO EXAM: CT CHEST WO CLINICAL HISTORY: trauma. TECHNIQUE: Imaging protocol: Axial computed tomography images were obtained and coronal and sagittal reformatted images were created and reviewed. Lung Computer Aided Detection (CAD) was utilized. COMPARISON: CT ABD PELVIS WITH CONTRAST from 05/27/[address] CHEST WO from 08/08/2020 FINDINGS: Tracheobronchial tree: Patent where visualized. No bronchiectasis is present. Pulmonary parenchyma: There are calcified granulomas present. The patient has had a prior partial le ft upper lobectomy. No noncalcified pulmonary nodules are present. There are opacities seen in the right lung base which may represent atelectasis or possible infection. Mediastinum and Evette: No dominant adenopathy or fluid collection. The esophagus is unremarkable. Thyroid gland: Unremarkable. Pleura: No effusion or pneumothorax. Heart: Mild cardiomegaly. Moderate three-vessel coronary artery calcification is present. No perica rdial effusion. Aorta: The ascending thoracic aorta measures 3.5 x 3.6. The descending thoracic aorta measures 3.6 x 3.5 cm. Atherosclerotic calcification is present. Upper abdomen: There is again seen a left adrenal nodule. It measures 3.0 cm. This is unchanged co mpared to the prior examinations. This likely reflects an adenoma. Lymph nodes: Within normal limits. Soft tissues: Unremarkable. Bones:There is a mildly displaced acute fracture of the lateral aspect of the right 6th rib. There i s a displaced fracture involving the posterolateral aspect of the right 7th rib. There is a comminut ed fracture of the 8th rib posteriorly and a displaced fracture laterally. There are nondisplaced fr actures of the posterior and lateral aspects of the 9th rib. IMPRESSION: 1. Displaced fractures involving the lateral aspect of the right 6th rib in the posterolateral aspect of the right 7th rib. 2. Displaced and comminuted fractures involving the 8th and 9th ribs posteriorly and laterally. 3. No pneumothorax. 4. Opacities in the right lower lobe. These may represent contusions or atelectasis. Infection is c onsidered less likely. RADIATION DOSE DELIVERED: 297.52mGy.cm Total DLP 297.52mGy.cm Total DLP DATA REPOSITORY: All CT scans at this facility are submitted to the National Radiology Data Registry (NRDR) Dose Index Registry (DIR) with the [employer] (ACR). RADIATION OPTIMIZATION: All CT scans at this facility use at least one of these dose optimization te chniques: automated exposure control; mA and/or kV adjustment per patient size (includes targeted exa ms where dose is matched to clinical indication); or iterative reconstruction.
[2025-02-02] MEDS: MORPHine IR 15 MG TAB PO (09:12)
[2025-02-02] MEDS: Diph,Pertuss(Acell),Tet Vac/Pf 0.5 ML SYR IM (09:13)
--- NOTE | 2025-02-02 10:51 | W.SURGCON ---
Date of service: 02/02/25 Time of Service: 10:51 Assessment and Plan Assessment and plan (1) Multiple closed fractures of ribs of right side: Status: Acute Assessment and plan: 74-year-old woman with rib fractures, no pneumothorax, no hemothorax and able to breathe adequately now that she has had her pain controlled with a rib block. She can perform deep incentive spirometry without difficulty. She is hemodynamically stable and saturating well. Her mechanism is not very concerning and she definitely has no flail physiology. I think is completely safe for her to be discharged home. The patient is very happy with this plan. History of Present Illness Narrative: Isaura fell out of bed last night and broke some ribs. No PTX. Anesthesia gave a nerve block and she felt way better and could pull IS [id number] at the bedside. PFSH All Active Problems (Updated 02/02/25 @ 15:13 by Salvador Mukherjee MD) Forehead laceration (Acute) Multiple closed fractures of ribs of right side (Acute) Anaphylactic reaction (Acute) Wheezing (Acute) Environmental allergies (Acute) Left ankle injury (Acute 12/29/23) COVID (Acute) Vulvar dystrophy (Acute) Acquired skin tag (Acute) Rash (Acute) Lichen planus (Acute) Oral mucosal lesion (Acute) Episodic lightheadedness (Acute) Tendinopathy of right biceps tendon (Acute) Trigger finger, left ring finger (Acute) Right rotator cuff tendinitis (Acute) Right shoulder pain (Acute) Contusion of right elbow (Acute) Effusion, right elbow (Acute) Coronary artery disease (Chronic) Constipation (Acute) Rectal bleeding (Acute) Cluster headache syndrome (Acute) Headache (Acute) Sinus pain (Acute) Chronic pain syndrome (Chronic) Degenerative joint disease of left hip (Chronic) COPD (chronic obstructive pulmonary disease) (Chronic) Foot arch pain (Acute) Weakness (Acute) Abnormal nuclear stress test (Acute) ST segment changes on electrocardiogram (Acute) Syncope (Chronic) Adductor tendinitis of right hip (Acute) History of carpal tunnel surgery of right wrist (Acute) S/P R ECTR DOS: 05/19/19 Vaginal atrophy (Acute) Pneumonia (Acute) Left carpal tunnel syndrome (Acute) Polyp of duodenum (Acute ~01/28/20) Sensorineural hearing loss (SNHL) of both ears (Acute) Migraine headache without aura (Acute) Hypertension (Chronic 09/09/14) pt. denies this Depression (Chronic) hospitalization w/ ect and medication 12/2018 Tinnitus (Chronic 05/13/14) Post-concussion headache (Chronic 08/03/15) Hypothyroidism (Chronic 07/19/17) Functional memory problem (Chronic 04/21/15) Abnormal auditory perception (Chronic 03/02/14) NEAL ADD (attention deficit disorder) (Chronic 09/06/16) Family history of colon cancer in father (Acute) Constipation (Acute) Medical History Near syncope Shortness of breath Chronic hip pain Tinnitus Fever Tick bite Myalgia Syncope Sprain of right little finger Right carpal tunnel syndrome S/P ECTR Primary osteoarthritis of right hip Injection under fluro: 05/19/19 Ganglion cyst right knee Smoker 11/25/84 Fracture of radius 10/24/04 left H/O reduction of closed fracture 11/25/04 left radius Cervical lesion 08/24/0909/02 cervical leiomyoma removed at [facility] Impetigo 03/02/14 Acute right hip pain 03/12/16 Cough 10/08/16 Rhinitis (09/02/14) Depressive disorder (10/24/84) history of kee Anorexia Nausea alone Unintentional weight loss Hx of stroke without residual deficits Surgical History History of total right hip replacement (03/21/21) H/O section Hx of appendectomy Hx of breast reduction, elective 11/25/89 H/O excision of ganglion cyst 09/13/15 History of esophagogastroduodenoscopy (EGD) (~07/2018) section Fracture, Closed Treatment (~2004) left radius Excision of left distal clavicle (10/17/16) Dr. Patel EXCISION OF GANGLION CYST (09/13/15) DR. PATEL; RIGHT KNEE Colonoscopy - IV Sedation (09/19/16) Last Colonoscopy 08/12- hyperplastic polyp Reduction mammoplasty (~1989) Appendectomy Family History Father Personal history of malignant neoplasm colon Son No problems noted. Brother No problems noted. Other Family history of colon cancer in father Social History Smoking/Tobacco Use Status: Former Tobacco Use Quit Date: 11/25/79 Second Hand Exposure: Yes Smoking risk assessment performed?: Yes Alcohol Intake: current Alcohol Intake frequency: a few times a month Alcohol type: beer, wine and hard liquor Drug use: Occasionally Substance use type: marijuana Details: alcohol: t-1, fifty ml. marijuana: tinctures Household members: spouse Housing: house Do you need help understanding health information?: Rarely Pets and animals: Yes Pets and animals: cat(s) and dog(s) Sexually active: No Do you think of yourself as: straight/heterosexual Current gender identity: female What is your relationship status?: How often do you talk on the phone with friends or family?: twice per week How often do you get together with friends or relatives?: twice per week Do you belong to any clubs or organized social groups?: yes Panel score (0-1 are the most socially isolated patients): 3 What type of physical activity do you participate in: walking and yoga Duration: 30-45 minutes/day Frequency: daily Birgit/Evangelical: No preference Seatbelt use: always Drive intox or ride w/intox cdl a driver: No Do you feel safe at home: Yes Do you feel safe in your relationship?: Yes Additional Social history: cannot ask privately Exam Narrative Exam Narrative: Gen: Non-toxic, comfortable and interactive Neuro: Alert and oriented x3 Psych: Good mood and affect. Good insight and understanding into condition. Chest: Non-labored breathing, no wheezing, no visible shortness of breath. No crepitus. Breath sounds are present bilateral. She is able to perform deep incentive spirometry. Heart: Regular Results Last Vital Signs Temp 97.6 F 02/02/25 08:43 Pulse 80 02/02/25 08:43 Resp 15 02/02/25 08:43 BP 175/92 H 02/02/25 08:43 Pulse Ox 96 02/02/25 08:43 Labs 02/02/25 11:16 02/02/25 11:16
[2025-02-02 11:23] LABS: Abs Immature Grans 0.03 10^3/uL (0.0-0.06); Absolute Basophil Count 0.06 10^3/uL (0.0-0.2); Absolute Eosinophil Count 0.01 10^3/uL (0.0-0.7); Absolute Lymphocyte Count 1.76 10^3/uL (1.2-3.4); Absolute Neutrophil Count 7.66 10^3/uL (1.2-6.7); Basophils % 0.6 %; Eosinophils % 0.1 %; HCT 41.4 % (36.0-46.0); HGB 13.7 g/dL (11.2-15.7); Immature Grans % 0.3 %; Lymphocytes % 17.4 %; MCH 31.6 pg (27.0-33.0); MCHC 33.1 % (32.0-36.0); MCV 95 fL (80-95); MPV 8.6 fL (8.0-11.0); Monocytes % 5.9 %; Neutrophils % 75.7 %; Platelet Count 288 10^3/uL (130-400); RBC 4.34 10^6/uL (3.93-5.22); RDW 13.3 % (11.7-14.6); RDW-SD 47.4 fL; WBC 10.12 10^3/uL (4.4-10.8)
[2025-02-02 11:38] LABS: Anion Gap 7.8 mmol/L (3-11); BUN 12 mg/dL (7-18); CO2 27.2 mmol/L (21.0-32.0); CREATININE 0.6 mg/dL (0.55-1.02); Calcium 9.3 mg/dL (8.5-10.1); Chloride 106 mmol/L (98-107); Estimated GFR 95.31 (mL/min/1.73m2); Glucose 113 mg/dL (74-106); Potassium 3.8 mmol/L (3.5-5.1); Sodium 141 mmol/L (136-145)
--- NOTE | 2025-02-02 14:29 | W.ANESNERVE ---
Nerve Block Single Injection Procedure Date and Time Date Performed: 02/02/25 Procedure Start: 14:05 Location Where Procedure Performed Procedure Location: Emergency Department Reason Performed: Postoperative Analgesia Requesting Provider: Salvador Mukherjee Timeout Performed Timeout Performed: Yes Monitoring Used ECG, Blood Pressure and SpO2 Sterility Sterility: Hand Hygiene, Surgical Cap, Surgical Mask, Sterile Gloves and Chlorhexidine Sedation Given During Procedure Sedation Given (Indicate Dose Given): No Sedation given Patient Mental Status Patient Mental Status: Awake Nerve Block 1st Nerve Block: Laterality: Right Block Type: Erector Spinae (Lower) Ultrasound Image Saved?: Yes Needle / Catheter Used: 100mm SonoPlex II Local Anesthetic Bolus (Indicate Dose Given): Lidocaine used for local infiltration of skin, Injected in 3-5ml increments after negative blood aspiration, Bupivacaine 0.25% Dose:: 10 ml and Exparel Dose:: 10 ml Additives (Indicate Dose Given): Normal Saline Ultrasound: Sterile probe cover and gel used Nerve Stimulator: Not Used Paresthesia: None Procedure Tolerated: No Complications and Patient tolerated well Procedure Outcome: Successful Performed By: Jagdish Welsh
[2025-02-02] MEDS: MORPHine IR 15 MG TAB, 4 TABS/BTL PO (15:22)
--- NOTE | 2025-02-02 16:34 | NUR.NOTE ---
Prior authorization for lidocaine 5% patches faxed to PCP for them to do. Nursing Note:
--- NOTE | 2025-02-08 07:39 | NUR.NOTE ---
Accessed Pt chart to see who Primary Care Provider is. I needed to fax a refill request for a prescription that Pt was given.
== END 2025-02-02 15:32 | disposition home or self-care (01) ==
PROVIDERS: Emergency Provider Emergency Medicine; PCP Nurse Practitioner Family
DX: S22.41XA Multiple fractures of ribs, right side, initial encounter for closed fracture (principal); S01.81XA Laceration without foreign body of other part of head, initial encounter; I25.10 Atherosclerotic heart disease of native coronary artery without angina pectoris; Z79.82 Long term (current) use of aspirin; Z86.73 Personal history of transient ischemic attack (TIA), and cerebral infarction without residual deficits; Z23 Encounter for immunization; W06.XXXA Fall from bed, initial encounter; Y93.89 Activity, other specified; Y92.013 Bedroom of single-family (private) house as the place of occurrence of the external cause; Z87.891 Personal history of nicotine dependence
CPT/HCPCS: 36415; 64450; 71250; 76942; 80048; 90471; 90715; 99283; 99284; 70450; 85025; J0665; J0666

== ENCOUNTER → 2025-02-25 13:11 | Outpatient (BNVA) | payer MEDICARE, BC, SELFPAY | PROVIDERS: PCP Nurse Practitioner Family; Referring Provider Nurse Practitioner Family; Visit Provider Surgery | DX: S22.41XD Multiple fractures of ribs, right side, subsequent encounter for fracture with routine healing (principal); X58.XXXD Exposure to other specified factors, subsequent encounter | CPT/HCPCS: 99213 ==

== ENCOUNTER → 2025-04-15 10:02 | Outpatient (BNVA) | payer MEDICARE, BC, SELFPAY | PROVIDERS: PCP Nurse Practitioner Family; Referring Provider Nurse Practitioner Family; Visit Provider Physician Assistant Surgical | DX: C34.90 Malignant neoplasm of unspecified part of unspecified bronchus or lung (principal); J44.9 Chronic obstructive pulmonary disease, unspecified | CPT/HCPCS: 99214 ==

== ENCOUNTER 2025-05-25 17:51 | Outpatient (REF) | payer MEDICARE, BC, SELFPAY ==
[2025-05-25 16:48] LABS: TSH 1.41 uIU/mL (0.36-3.74)
== END 2025-05-25 17:52 | disposition home or self-care (01) ==
LOC: NCHCN 17:51
PROVIDERS: PCP Nurse Practitioner Family; Visit Provider Nurse Practitioner Family
DX: E03.9 Hypothyroidism, unspecified (principal)
CPT/HCPCS: 84439; 84443

== ENCOUNTER 2025-07-26 20:39 | Emergency (ER) | payer MEDICARE, BC, SELFPAY ==
[2025-07-26 20:45] VITALS: BP 157/71; PULSE 76; RESP 18; TEMP 36.6; O2SAT 94
[2025-07-26] MEDS: Tetracaine 0.5% 4 ML BTL OP (21:06)
[2025-07-26] MEDS: Fluorescein STRIPS 100/BOX 1 MG OP (21:06)
--- NOTE | 2025-07-26 21:25 | W.ED.GENAD ---
Discharge Plan Disposition Patient Disposition: Home Condition: Stable Discharge Details Clinical Impression: Corneal abrasion of right eye due to contact lens Primary Care Provider: Tamera Jensen ED Provider: Stanton Wilder Home Meds and New Rx's Prescriptions: Continued albuterol sulfate [Ventolin HFA] 90 mcg/actuation HFA aerosol inhaler 2 puff IH QID PRN (Reason: shortness of breath or wheezing) Qty: 18 7RF cholecalciferol (vitamin D3) 50 mcg (2,000 unit) capsule 50 mcg PO DAILY vitamin B complex Tablet 1 tab PO DAILY PRN ezetimibe 10 mg tablet 10 mg PO DAILY sertraline 50 mg tablet 125 mg PO DAILY fexofenadine 60 mg tablet 60 mg PO DAILY ipratropium-albuterol 0.5 mg-3 mg(2.5 mg base)/3 mL solution for nebulization 3 ml inhalation Q4H PRN (Reason: wheezing) Qty: 180 6RF Trelegy Ellipta 100-62.5-25 mcg blister with device 1 inh inhalation DAILY 90 Days Qty: 60 12RF clonazepam 0.5 mg tablet 0.5 mg PO .COMPLEX MDD 3 PRN (Reason: anxiety) Qty: 270 1RF Patient Comments: pt. states she took 0.25 mg today Rx Instructions: 0.5 mg PO BID and HS, prn levothyroxine 50 mcg tablet 50 mcg PO DAILY Qty: 90 11RF albuterol sulfate 2.5 mg /3 mL (0.083 %) solution for nebulization 2.5 mg inhalation QID PRN (Reason: shortness of breath or wheezing J44.9) Qty: 75 0RF clobetasol 0.05 % ointment See Rx Instructions .ROUTE .COMPLEX Qty: 60 2RF Dose Instruction: APPLY TO AFFECTED AREA(S) TWO TIMES A DAY Rx Instructions: APPLY TO AFFECTED AREA(S) TWO TIMES A DAY estradiol [Estrace] 0.01 % (0.1 mg/gram) cream 1 appful vaginal DAILY Qty: 42.5 3RF diphenhydramine HCl 25 mg capsule 25 mg PO DIRECTED PRN mupirocin 2 % ointment 1 applic topical TID triamcinolone acetonide 0.025 % cream 1 applic topical DAILY epinephrine [EpiPen 2-Santhosh] 0.3 mg/0.3 mL auto-injector 0.3 mg IM ONCE Qty: 2 0RF Rx Instructions: as a single dose; may repeat once Discharge Instructions Instructions: Ofloxacin (Ophthalmic), Tetracaine (Ophthalmic), Erythromycin (Ophthalmic), Corneal Abrasion ED Additional Instructions: You were seen in the emergency department for your foreign body sensation of retained contact, we could not quite locate the contact with fluorescein dye, there is quite a large corneal abrasion though which can also cause foreign body sensation. We are sending you home with ofloxacin ophthalmic drops to use 2 drops 4 times per day. I have also sent you home with erythromycin ointment, this is for comfort at night and will likely feel more comfortable to put ointment in your right eye and patch at the evening. Use the diluted tetracaine drops I provided you 1 to 2 drops for a maximum of 5 more doses between now and when you see your eye doctor tomorrow. If you still continue to have severe pain and redness tomorrow we may need to perform a CT scan. Referrals: Tamera Jensen [Primary Care Provider, Medicine] Discharge Data Discharge Date/Time-TO BE ENTERED AT DEPARTURE: 07/26/25 22:05 HPI General Date/Time Provider Initiated Documentation: 07/26/25 20:53. HPI Narrative: 75 year-old female presents to ED today by POV/ambulating with a chief complaint of possible retained contact in her R eye after taking a nap earlier today with onset this afternoon, cannot get it out on her own. Quality described as R eye irritation, no radiation to redness, eyelid swelling, discharge. Severity is described as moderate. Palliating factors include nothing specific- attempted flushes at home. Provoking factors include nothing specific. Patient not anticoagulated. Related Data Home Medications ?Medication ?Instructions ?Recorded ?Confirmed cholecalciferol (vitamin D3) 50 50 mcg PO DAILY 05/07/22 04/20/25 mcg (2,000 unit) capsule albuterol sulfate 90 mcg/actuation 2 puff inhalation QID PRN 09/11/22 04/20/25 aerosol inhaler (Ventolin HFA) shortness of breath or wheezing #18 grams clonazepam 0.5 mg tablet 0.5 mg PO .COMPLEX PRN anxiety 10/09/23 04/20/25 #270 tabs levothyroxine 50 mcg tablet 50 mcg PO DAILY #90 tab-caps 10/14/23 04/20/25 albuterol sulfate 2.5 mg/3 mL 2.5 mg (3 mL) inhalation QID PRN 11/01/23 02/25/25 (0.083 %) solution for nebulization shortness of breath or wheezing J44.9 #75 mL clobetasol 0.05 % topical ointment See Rx Instructions .Route 01/13/24 04/20/25 .COMPLEX #60 grams vitamin B complex 1 tab PO DAILY PRN 04/16/24 04/20/25 estradiol 0.01% (0.1 mg/gram) 1 appful vaginal DAILY #42.5 grams 06/16/24 04/20/25 vaginal cream (Estrace) epinephrine 0.3 mg/0.3 mL 0.3 mg (0.3 mL) IM ONCE #2 ea 07/15/24 04/20/25 injection, auto-injector (EpiPen 2-Santhosh) diphenhydramine HCl 25 mg capsule 25 mg PO DIRECTED PRN 07/28/24 02/25/25 mupirocin 2 % topical ointment 1 applic topical TID 07/28/24 04/20/25 triamcinolone acetonide 0.025 % 1 applic topical DAILY 07/28/24 04/20/25 topical cream fexofenadine 60 mg tablet 60 mg PO DAILY 04/15/25 04/20/25 fluticasone fur. 100 mcg-umeclid 1 inh inhalation DAILY 90 days #60 04/15/25 04/15/25 62.5 mcg-vilant 25 mcg ea inhalat.powder (Trelegy Ellipta) ipratropium 0.5 mg-albuterol 3 mg 3 ml inhalation Q4H PRN wheezing 04/15/25 04/15/25 (2.5 mg base)/3 mL nebulization #180 mL soln ezetimibe 10 mg tablet 10 mg PO DAILY 07/20/25 sertraline 50 mg tablet 125 mg PO DAILY 07/20/25 Previous Rx's ?Medication ?Instructions ?Recorded albuterol sulfate 90 mcg/actuation 2 puff inhalation QID PRN 09/11/22 aerosol inhaler (Ventolin HFA) shortness of breath or wheezing #18 grams clonazepam 0.5 mg tablet 0.5 mg PO .COMPLEX PRN anxiety 10/09/23 #270 tabs levothyroxine 50 mcg tablet 50 mcg PO DAILY #90 tab-caps 10/14/23 albuterol sulfate 2.5 mg/3 mL 2.5 mg (3 mL) inhalation QID PRN 11/01/23 (0.083 %) solution for nebulization shortness of breath or wheezing J44.9 #75 mL clobetasol 0.05 % topical ointment See Rx Instructions .Route 01/13/24 .COMPLEX #60 grams estradiol 0.01% (0.1 mg/gram) 1 appful vaginal DAILY #42.5 grams 06/16/24 vaginal cream (Estrace) epinephrine 0.3 mg/0.3 mL 0.3 mg (0.3 mL) IM ONCE #2 ea 07/15/24 injection, auto-injector (EpiPen 2-Santhosh) fluticasone fur. 100 mcg-umeclid 1 inh inhalation DAILY 90 days #60 04/15/25 62.5 mcg-vilant 25 mcg ea inhalat.powder (Trelegy Ellipta) ipratropium 0.5 mg-albuterol 3 mg 3 ml inhalation Q4H PRN wheezing 04/15/25 (2.5 mg base)/3 mL nebulization #180 mL soln Allergies Allergy/AdvReac Type Severity Reaction Status Date / Time cephalexin (From Keflex) Allergy Severe Anaphylaxis Verified 07/26/25 21:07 codeine Allergy Severe Anaphylaxis Verified 07/26/25 21:07 propofol AdvReac Severe Other (See Verified 07/26/25 21:07 Comment) gabapentin AdvReac Intermediate Made me Verified 07/26/25 21:07 crazy lisinopril AdvReac Intermediate cough Verified 07/26/25 21:07 [place]-[facility] Reductase AdvReac Unknown Unknown Verified 07/26/25 21:07 Inhibitor tiotropium (From Stiolto AdvReac Unknown Unknown Verified 07/26/25 21:07 Respimat) alcaftadine (From Lastacaft) AdvReac Other (See Verified 07/26/25 21:07 Comment) verapamil Allergy Severe severe Uncoded 07/26/25 21:07 constipation General Stated Complaint: EyeProblem RASHEED: 4 Review of Systems All systems reviewed & are unremarkable except as noted in HPI and below Exam Narrative Exam Narrative: GENERAL APPEARANCE: Well-nourished, non-toxic, awake and alert, atraumatic, no acute distress. SKIN: Warm, pink, dry, intact, without rashes/lesions/ulcerations. HEAD: Normocephalic, atraumatic, normal hair distribution for gender/age. EYES: Normal conjunctiva, no exudates on lids/lashes, slightly visible contact with fluorescein dye but cannot remove it and after some flushing I could not see the circular curved edge anymore, I question whether we flushed it out, she does have a significant corneal abrasion to the area the entire lower half of her cornea, otherwise vision grossly intact ENT: Nares patent, no circumoral cyanosis, no facial swelling NECK: Supple, trachea midline, painless cervical ROM. LUNGS/CHEST: Non-labored respirations, normal A/P diameter, symmetrical expansion, no chest wall deformity HEART (CV/PV): No peripheral edema, no JVD. ABDOMEN: Soft, non-distended, no guarding. MSK: Normal ROM, no swelling/deformity to bilateral UEs or LEs, moving all extremities without weakness, no cyanosis, spine midline without tenderness, normal curvature. NEURO: Mental Status AAOx4 - alert to person, place, time, events No facial droop, no forehead involvement. Motor: No focal weakness - strength 5/5 in bilateral UEs and LEs, proximal and distal, symmetric. Sensory: sensation intact to light touch globally. Gait normal: patient ambulated without ataxia into ED room. PSYCH: euthymic, cooperative, pleasant, appropriate speech Course Vital Signs Vital signs: Vital Signs Temperature 36.6 C 07/26/25 20:45 Pulse 76 07/26/25 20:45 Respiratory Rate 18 07/26/25 20:45 Blood Pressure 157/71 H 07/26/25 20:45 Pulse Oximetry 94 07/26/25 20:45 Temperature 36.6 C 07/26/25 20:45 Temperature Source Oral 07/26/25 20:45 Pulse 76 07/26/25 20:45 Respiratory Rate 18 07/26/25 20:45 Blood Pressure 157/71 H 07/26/25 20:45 Blood Pressure Position Sitting 07/26/25 20:45 Pulse Oximetry 94 07/26/25 20:45 Oxygen Delivery Method Room Air 07/26/25 20:45 Oxygen Flow Rate 0 07/26/25 20:45 Pain Level 1 07/26/25 20:57 Medical Decision Making This dictation utilizes [id number] dictation software and may contain unedited grammatical errors. 75 year-old female presents to ED today by POV/ambulating with a chief complaint of possible retained contact in her R eye after taking a nap earlier today with onset this afternoon, cannot get it out on her own. Quality described as R eye irritation, no radiation to redness, eyelid swelling, discharge. Severity is described as moderate. Palliating factors include nothing specific- attempted flushes at home. Provoking factors include nothing specific. Patients' medical history: noncontributory. Family and social history: noncontributory. Pertinent exam findings / vital signs include Question a slightly visible contact with fluorescein dye but cannot remove it and after some flushing I could not see the circular curved edge anymore, I question whether we flushed it out, she does have a significant corneal abrasion to the area the entire lower half of her cornea, otherwise vision grossly intact. Differential / pathologies of concern include corneal abrasion, retained contact. Diagnostic studies of: -None. Interventions of: -Rx for ofloxacin drops to cover pseudomonas- and erythromycin for some comfort while attempting sleep, sent home with tetraine to do 1 drop q4hr for 5 doses total max- stressed this was a hard stop medication. ED Course/Assessment/Plan: 75-year-old female has a feeling of foreign body retained contact after taking a nap today, we could not find a contact but do not see any foreign body I did have Dr. Palomares take a look as well and we did not see anything under Ndiaye lamp and fluorescein dye, she does have significant corneal abrasion from all the attempts to remove contact, I counseled her to follow-up with her eye doctor tomorrow and placed her on prophylactic antibiotics, strict return criteria for any severe increase in eye pain or discharge or any other loss of vision. Findings not consistent with retained FB, corneal ulcer. Disposition of Corneal Abrasion of Right Eye Due to Contact Lens. Patient verbalized understanding of the plan and return to ED criteria and engaged in shared decision making. Medical Records Medical records reviewed: Yes I reviewed the patient's medical records. PFSH All Active Problems (Updated 07/26/25 @ 21:27 by JOSESITO Guevara) Corneal abrasion of right eye due to contact lens (Acute) Multiple closed fractures of ribs of right side (Acute) Anaphylactic reaction (Acute) Wheezing (Acute) Environmental allergies (Acute) Left ankle injury (Acute 12/29/23) COVID (Acute) Vulvar dystrophy (Acute) Acquired skin tag (Acute) Rash (Acute) Lichen planus (Acute) Oral mucosal lesion (Acute) Episodic lightheadedness (Acute) Tendinopathy of right biceps tendon (Acute) Trigger finger, left ring finger (Acute) Right rotator cuff tendinitis (Acute) Right shoulder pain (Acute) Contusion of right elbow (Acute) Effusion, right elbow (Acute) Coronary artery disease (Chronic) Constipation (Acute) Rectal bleeding (Acute) Cluster headache syndrome (Acute) Headache (Acute) Sinus pain (Acute) Chronic pain syndrome (Chronic) Degenerative joint disease of left hip (Chronic) COPD (chronic obstructive pulmonary disease) (Chronic) Foot arch pain (Acute) Weakness (Acute) Abnormal nuclear stress test (Acute) ST segment changes on electrocardiogram (Acute) Syncope (Chronic) Adductor tendinitis of right hip (Acute) History of carpal tunnel surgery of right wrist (Acute) S/P R ECTR DOS: 05/19/19 Vaginal atrophy (Acute) Pneumonia (Acute) Left carpal tunnel syndrome (Acute) Polyp of duodenum (Acute ~01/28/20) Sensorineural hearing loss (SNHL) of both ears (Acute) Migraine headache without aura (Acute) Hypertension (Chronic 09/09/14) pt. denies this Depression (Chronic) hospitalization w/ ect and medication 12/2018 Tinnitus (Chronic 05/13/14) Post-concussion headache (Chronic 08/03/15) Hypothyroidism (Chronic 07/19/17) Functional memory problem (Chronic 04/21/15) Abnormal auditory perception (Chronic 03/02/14) NEAL ADD (attention deficit disorder) (Chronic 09/06/16) Family history of colon cancer in father (Acute) Constipation (Acute) Medical History Near syncope Shortness of breath Chronic hip pain Tinnitus Fever Tick bite Myalgia Syncope Sprain of right little finger Right carpal tunnel syndrome S/P ECTR Primary osteoarthritis of right hip Injection under fluro: 05/19/19 Ganglion cyst right knee Smoker 11/25/84 Fracture of radius 10/24/04 left H/O reduction of closed fracture 11/25/04 left radius Cervical lesion 08/24/0909/02 cervical leiomyoma removed at [facility] Impetigo 03/02/14 Acute right hip pain 03/12/16 Cough 10/08/16 Rhinitis (09/02/14) Depressive disorder (10/24/84) history of kee Anorexia Nausea alone Unintentional weight loss Hx of stroke without residual deficits Surgical History History of total right hip replacement (03/21/21) H/O section Hx of appendectomy Hx of breast reduction, elective 11/25/89 H/O excision of ganglion cyst 09/13/15 History of esophagogastroduodenoscopy (EGD) (~07/2018) section Fracture, Closed Treatment (~2004) left radius Excision of left distal clavicle (10/17/16) Dr. Patel EXCISION OF GANGLION CYST (09/13/15) DR. PATEL; RIGHT KNEE Colonoscopy - IV Sedation (09/19/16) Last Colonoscopy 08/12- hyperplastic polyp Reduction mammoplasty (~1989) Appendectomy Family History Father Personal history of malignant neoplasm colon Son No problems noted. Brother No problems noted. Other Family history of colon cancer in father Social History Smoking/Tobacco Use Status: Former Tobacco Use Quit Date: 11/25/79 Second Hand Exposure: Yes Smoking risk assessment performed?: Yes Alcohol Intake: current Alcohol Intake frequency: a few times a month Alcohol type: beer, wine and hard liquor Drug use: Occasionally Substance use type: marijuana Details: alcohol: t-1, fifty ml. marijuana: tinctures Household members: spouse Housing: house Do you need help understanding health information?: Rarely Pets and animals: Yes Pets and animals: cat(s) and dog(s) Sexually active: No Do you think of yourself as: straight/heterosexual Current gender identity: female What is your relationship status?: How often do you talk on the phone with friends or family?: twice per week How often do you get together with friends or relatives?: twice per week Do you belong to any clubs or organized social groups?: yes Panel score (0-1 are the most socially isolated patients): 3 What type of physical activity do you participate in: walking and yoga Duration: 30-45 minutes/day Frequency: daily Birgit/Presybeterian: No preference Seatbelt use: always Drive intox or ride w/intox passenger coach driver: No Do you feel safe at home: Yes Do you feel safe in your relationship?: Yes Additional Social history: cannot ask privately
[2025-07-26] MEDS: Erythromycin Ophth Oint 3.5 GM TUBE OU (21:52)
== END 2025-07-26 22:05 | disposition home or self-care (01) ==
PROVIDERS: Emergency Provider Physician Assistant; PCP Nurse Practitioner Family
DX: H18.821 Corneal disorder due to contact lens, right eye (principal)
CPT/HCPCS: 99283 ×2

== ENCOUNTER 2025-08-18 03:18 | Outpatient (CLI) | payer MEDICARE, BC, SELFPAY ==
--- NOTE | 2025-08-18 | DI.MAMMO_ITS ---
Exam(s) MAMMO SCREENING EXAM: MAMMO SCREENING CLINICAL HISTORY: SCREENING MAMMO Z12.31 TECHNIQUE: Bilateral full field digital CC and MLO mammographic images were obtained with 3D tomosynthesis and utilizing computer aided detection (CAD). COMPARISON: Comparison is made with prior examinations. FINDINGS: Masses/Architectural Distortion: No suspicious masses or areas of architectural distortion are present. Microcalcifications: No suspicious pleomorphic-type are seen. Skin Thickening/Nipple Retraction: None. IMPRESSION: 1. No significant interval change with no specific features of malignancy noted. 2. Unless there is more urgent need, screening mammography is recommended, as per [place] [employer] guidelines. BI-RADS Category 1 - Negative Breast Density - Category B - There are scattered areas of fibroglandular density. Breast density Category C or D implies that the patient has dense breast tissue. Dense breast tissue can make it harder to find cancer on a mammogram. Dense breast tissue is also associated with an increased risk of breast cancer. This information about the result of the mammogram report was provided to the patient to raise their awareness. Use this report when you speak with the patient about their risks for breast cancer, which includes their family history. At that time, you may recommend additional screening tests (Ultrasound or MRI) as these tests may add significant information. A negative radiographic report should not delay biopsy if a dominant or clinically suspicious mass is present. Up to ten percent of cancers are not identified on mammography. A negative report may reinforce clinical impression. Adenosis and dense breasts may obscure an underlying neoplasm. False positive reports average 6 to 10%. Patient will receive a letter notifying them of these results.
== END 2025-08-18 03:38 ==
PROVIDERS: PCP Nurse Practitioner Family; Visit Provider Nurse Practitioner Family
DX: Z12.31 Encounter for screening mammogram for malignant neoplasm of breast (principal)
CPT/HCPCS: 77063; 77067